=== PATIENT | female | born 1990 | race Caucasian/White ===

== ENCOUNTER 2022-12-17 09:36 | Emergency (ER) | payer OTHER ==
--- OUTSIDE RECORDS SUMMARY | 2022-12-17 09:48 | XMS REPORT | Continuity of Care Document ---
:[address] [facility] t Address [address] [place] [address] Care Team Providers Name Role Phone Maria Calderon Attending Clinician Unavailable Camila Ferreira Attending Clinician Unavailable [email or web address] Attending Clinician Unavailable Iveth De La Garza Attending Clinician Unavailable Doctor Unassigned, [place] Attending Clinician Unavailable Raisa Gotti Attending Clinician Feliciano Aguilar Attending Clinician Chanel Foy Attending Clinician Deonte Arana Attending Clinician Indio Perez Attending Clinician Maria Calderon Admitting Clinician Unavailable Camila Ferreira Admitting Clinician Unavailable [email or web address] Admitting Clinician Unavailable Chanel Foy Admitting Clinician Feliciano Aguilar Admitting Clinician Payers Payer Name Policy Type Policy Number Effective Date Expiration Date Cody GOODEN [id number] 2017 00:00:00 (POS II) Problems Condition Condition Condition Status Onset Resolution Last Treating Co mments Source Name Details Category Date Date Treatment Clinician Date Infertilit Infertilit Disease Active U nivers y y 7-05 [place] Medical anovulatio anovulatio Br anch n n 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 02-02 [place] of of cerv[place] (JENNIFER III) (JENNIFER III) 00 [facility] High 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 [place] infection [place] 00 [facility] Hemorrhoid Hemorrhoid Disease Active Overview : Univers s, s, 3- Added ity of unspecifie unspecifie 00:00: automatic [place] d d 00 ally from Medical hemorrhoid hemorrhoid request B ranch type type for surgery [id number] Heart Heart Disease Active Univers palpitatio palpitatio 04-17 it y of ns ns 00:00: [place] 00 Medical Branch Disease Active Uni vers resulting resulting 02-26 ity of from in from in 00:00: [place] vitro vitro 00 Medical fertilizat fertilizat Br anch ion, ion, antepartum antepartum Presence Presence Disease Active Unive rs of of 02-23 [place] of intracrani intracrani [place] shunt al shunt 00 Medica l Branch History of History of Disease Active U nivers brain brain 02-23 ity of shunt shunt 00:00: [place] 00 Medical Branch 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 02-23 ity of 00:00: [place] 00 Medical Branch G91.0 - G91.0 - Diagnosis Active 2015-11-28 Memoria COMMUNICAT COMMUNICAT 3-03 16:42:00 l ING ING 00:01: [place] 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 10/02/2015 MH OPID [place] 348.0 - 348.0 - Diagnosis Active 2015-04-28 Memoria CEREBRAL CEREBRAL 04-23 10:25:00 l CYSTS CYSTS 00:01: [place] 331.3 - 331.3 - 00 COMMUNICA COMMUNICA Active 04/23/2015 ASHANTI Sorenson BENIGN BENIGN Diagnosis Active 2014-11-05 M emoria TUMOR TUMOR 3- 21:47:00 l CHOROID CHOROID 00:00: [place] Active 00 10/01/2014 [facility] 789.39 - 789.39 - Diagnosis Active 2014-11-23 Memoria ABDMNAL ABDMNAL 2-20 16:35:00 l MASS OT MASS OT 00:01: [place] 625.8 - 625.8 - 00 FEM GEN FEM GEN Active 09/20/2014 ASHANTI Doug HYDROCEPHA HYDROCEPH Diagnosis Active 2013-082014-07-15 Memoria TRINO, ICD ALUS, ICD -14 08:45:00 l 9- 331.3 9- 331.3 00:00: Sundeep mitchell Active 00 06/14/2014 [facility] HYDROCEPHA HYDROCEPH Diagnosis Active 2013-082014-06-17 Memoria TRINO ALUS -14 12:18:00 l Active 00:00: [place] 06/14/2014 00 [facility] Communicat Communica Problem Active 2013-082016-04-30 Memoria ing ting 1-06 01:38:20 l hydrocepha hydrocepha 00:00: Jaiden pierce trino trino 00 (disorder) (disorder) Active 06/06/2014 Problem 04/30/2016 Data migrated from [facility] on 03/25/15. ASHANTI Sorenson, OPIAmy [place] HEADACHE HEADACHE Diagnosis Active 2013-082014-05-15 Memoria Active 13:10:00 l 05/15/2014 00:00: Sundeep mitchell [address], [facility] [place] PSEUDOTUMO PSEUDOTUM Diagnosis Active 2012-082013-06-05 Memoria R OR Active 08-01 08:08:00 l 06/01/2013 00:00: Sundeep mitchell [address] HYDROCEPHA Diagnosis Active 2012-082013-06-01 Memoria TRINO, HYDROCEPHA 0- 15:11:00 l VOMITING TRINO, 00:00: [place] VOMITING 00 Active 05/31/2013 [facility] VOMITING VOMITING Diagnosis Active 2012-082013-05-31 Memoria Active 19:00:00 l 05/31/2013 00:00: Sundeep mitchell [address] SEIZURES, SEIZURES, Diagnosis Active 2013-05-10 Memoria ARCHNOID ARCHNOID 03-29 21:36:00 l CYST CYST 00:00: [place] ICD-9# ICD-9# 00 345.41, 3 345.41, 3 Active 03/29/2013 [facility] SEIZURES, SEIZURES, Diagnosis Active 2013-04-12 Memoria ARCHNOID ARCHNOID 03-29 13:43:00 l CYST CYST 00:00: [place] Active 00 03/29/2013 [facility] EMU 23HR EMU 23HR Diagnosis Active 2013-04-03 Memoria EEG-STARIN EEG-STARIN 03-23 09:24:00 l G SPELLS G SPELLS 00:00: Sundeep mitchell Active 00 03/23/2013 [facility] Arachnoid Arachnoid Problem Active 2016-04-30 Memoria cyst cyst 03-01 01:38:20 l (disorder) (disorder) 00:00: He barbaraann Active 00 03/01/2013 Problem 04/30/2016 Data migrated from [employer] on 03/25/15. [facility], ASHANTI Sorenson, ASHANTI Saini,[facility] Final: Final: Problem 2014-11-02 Grant elise 11/02/2014 15:26:41 l [facility] Kidney Kidney Problem Resolve 2016-04-30 Me moria stone stone d 01:38:20 l (disorder) (disorder) He rmann Resolved Problem 04/30/2016 [facility], ASHANTI Sorenson, ASHANTI Saini,[facility] Acute pain Acute Problem Active 2016-04-30 M emoria (finding) pain 01:38:20 l (finding) [place] Active Problem 04/30/2016 [facility], ASHANTI Sorenson, ASHANTI Saini,[facility] Headache Headache Problem Active 2016-04-30 Memoria (finding) (finding) 01:38:20 l Active [place] Problem 04/30/2016 [facility], ASHANTI Sorenson, ASHANTI Saini Cyst of Cyst of Problem Active 2016-04-30 Me moria ovary ovary 01:38:20 l (disorder) (disorder) He rmann Active Problem 04/30/2016 [facility], OPID [place], OPID [place] COMMUNICAT COMMUNICA Diagnosis Active 2014-07-15 Memoria HYDROCEPHA T 08:45:00 l TRINO HYDROCEPHA Sundeep mitchell TRINO Active [facility] PSYMOTR PSYMOTR Diagnosis Active 2013-05-10 Memoria EPIL W EPIL W 21:36:00 l INTR EPIL INTR EPIL Herm dorothy Active [facility] CEREBRAL CEREBRAL Diagnosis Active 2013-05-10 Memoria CYSTS CYSTS 21:36:00 l Active [facility] CONVULSION CONVULSIO Diagnosis Active 2013-04-03 Memoria S NEC NS NEC 09:24:00 l [facility] BENIGN BENIGN Diagnosis Active 2014-11-05 M emoria NEOPLASM NEOPLASM 21:47:00 l CHOROID CHOROID [place] Active [facility] History of Past Illness Condition Condition Condition Status Onset Resolution Last Treating Co mments Source Name Details Category Date Date Treatment Clinician Date Discharge Discharge Problem 2013-082014-05-09 2014-05-09 Memoria Diagnosis: Diagnosis: 0-06 05:27:44 05:27:44 l Headache Headache 05:00: Sundeep n 05/06/2014 00 4 [facility] Allergies, Adverse Reactions, Alerts Allergy Allergy Status Severity Reaction(s) Onset Inactive Treating Comm ents Source Name Type Date Date Clinician No Known DA [facility] [place] No Known DA Active [facility] [place] Animal Propensi Active Hives Univers Dander ty to 9-13 ity of adverse 00:00: [place] reaction 00 Medical s Branch Social History Social Habit Start Date Stop Date Quantity Comments Source Alcohol intake [facility] Sex Assigned At [facility] Social History 2014-10-29 2014-10-29 Gerardo quevedo 12:22:21 12:22:21 Smoking Status Start Date Stop Date Source Social History [facility] [place] Medications Ordered Filled Start Stop Current Ordering Indication Dosage Frequency Signature Comments Components Source Medication Medication Date Date Medication? Clinician (SIG) Name Name HYDROmorphO Yes [id number] 2mg Take 1 Univers ne 4-02 tablet by ity of (DILAUDID) 00:00: mouth [place] 2 mg tablet 00 every 6 Medic al (six) Branch hours as needed for Pain (scale 7-10). ibuprofen Yes Special Memor ia 600 mg oral 402 Instructio l tablet 12:45: ns: take with food docusate Yes 100 mg = 1 Mem oria sodium 100 4-02 cap, PO, l mg oral 12:45: BID, PRN Sundeep n capsule 00 Constipati on, # 60 cap, 0 Refill(s) Acetaminoph Yes 1 - 2 tab, Memoria en 300 MG / 4-02 PO, Q6H, l Codeine 12:45: PRN Pain, Randi nn Phosphate 00 # 20 tab, 30 MG Oral 0 Tablet Refill(s) [Tylenol with Codeine #3] ibuprofen Yes Special Memor ia 600 mg oral 402 Instructio l tablet 12:45: ns: take with food docusate Yes 100 mg = 1 Mem oria sodium 100 4-02 cap, PO, l mg oral 12:45: BID, PRN Sundeep n capsule 00 Constipati on, # 60 cap, 0 Refill(s) Acetaminoph Yes 1 - 2 tab, Memoria en 300 MG / 4-02 PO, Q6H, l Codeine 12:45: PRN Pain, Randi nn Phosphate 00 # 20 tab, 30 MG Oral 0 Tablet Refill(s) [Tylenol with Codeine #3] Acetaminoph No Notes: Grant elise en 325 MG / 10-30 (Same as: l Hydrocodone 19:49: [place] Randi nn Bitartrate 00 325/5) Do 5 MG Oral not exceed Tablet 4gm/day of [[place] acetaminop 5/325] hen. Acetaminoph No Notes: Grant elise en 325 MG / 10-30 (Same as: l Hydrocodone 19:49: [place] Randi nn Bitartrate 00 325/5) Do 5 MG Oral not exceed Tablet 4gm/day of [[place] acetaminop 5/325] hen. benzocaine- No Notes: Grant elise menthol 10-30 Cepacol l topical 19:35: lozenges Sundeep n 00 Dispense 1 box = 16 lozenges (Same As: Cepacol Lozenges) benzocaine- No Notes: Grant elise menthol 10-30 Cepacol l topical 19:35: lozenges Sundeep n 00 Dispense 1 box = 16 lozenges (Same As: Cepacol Lozenges) Cepacol No 1 lozenge, Grant elise Lozenge 10-30 Route: l 19:33: MUCOUS [place] 00 MEM, Q2H, Drug form: SAMINA, PRN Sore Throat, Start date: 10/30/14 14:33:00, Duration: 30 day, Stop date: 11/29/14 14:32:00 Cepacol No 1 lozenge, Grant elise Lozenge 10-30 Route: l 19:33: MUCOUS [place] 00 MEM, Q2H, Drug form: SAMINA, PRN Sore Throat, Start date: 10/30/14 14:33:00, Duration: 30 day, Stop date: 11/29/14 14:32:00 Albuterol No Notes: SEE Me moria 0.417 MG/ML - RT l Inhalant 12:07: DOCUMENTAT Her raya Solution 00 ION (Same as: Proventil) Albuterol No Notes: SEE Me moria 0.417 MG/ML 4- RT l Inhalant 12:07: DOCUMENTAT Her raya Solution 00 ION (Same as: Proventil) Benadryl No Notes: Memoria 10-30 (Same as: l 12:03: Benadryl) [place] Benadryl No Notes: Memoria 10-30 (Same as: l 12:03: Benadryl) [place] Benadryl No Notes: Memoria 4 (Same as: l 12:01: Benadryl) [place] Benadryl No Notes: Memoria 4 (Same as: l 12:01: Benadryl) [place] sennosides, No Notes: Grant elise NURSING HOME 10-30 (Same as: l 02:00: Senokot) [place] sennosides, No Notes: Grant elise NURSING HOME 4-01 (Same as: l 02:00: Senokot) [place] Acetaminoph No 1-2 tab, Me moria en 325 MG / 3-31 PO, Q4-6H, l Hydrocodone 22:25: PRN Pain He rmann Bitartrate 00 5 MG Oral Tablet [[place] 5/325] Diphenhydra No 25 mg = 1 M emoria mine 3-31 tab, PO, l Hydrochlori 22:25: Bedtime Her raya de 25 MG 00 Oral Tablet [Benadryl] Acetaminoph No 1-2 tab, Me moria en 325 MG / 3-31 PO, Q4-6H, l Hydrocodone 22:25: PRN Pain He rmann Bitartrate 00 5 MG Oral Tablet [[place] 5/325] Diphenhydra No 25 mg = 1 M emoria mine 3-31 tab, PO, l Hydrochlori 22:25: Bedtime Her raya de 25 MG 00 Oral Tablet [Benadryl] Docusate No Notes: Memoria 3-31 (Same as: l 22:00: Colace) [place] (Do Not Crush) Docusate No Notes: Memoria 3-31 (Same as: l 22:00: Colace) [place] (Do Not Crush) vancomycin No 2001 mg: Me moria 3-31 infuse l 21:00: over 2.5 [place] 00 hours vancomycin No 2001 mg: Me moria 3-31 infuse l 21:00: over 2.5 [place] 00 hours Cefoxitin No Notes: Memori a 20 MG/ML 3-31 (Same As: l Injectable 19:00: Mefoxin) Her raya Solution 00 Cefoxitin No Notes: Memori a 20 MG/ML 3-31 (Same As: l Injectable 19:00: Mefoxin) Her raya Solution 00 Hydromorpho No Notes: Grant elise ne 3-31 (Same as: l 17:00: Dilaudid) [place] 00 conc = 0.5 mg/ml Hydromorph one ENDODONTIST Dose: ;Delay: ;Basal: celecoxib No Notes: Memori a 3-31 NSAID. l 17:00: Please [place] 00 check indication . Not for seizure. (Same As: CeleBREX ) Acetaminoph No Notes: Grant elise en 3-31 Infuse l 17:00: over 15 [place] 00 minutes Do not exceed 4gm/day of acetaminop hen pregabalin No Notes: Memor ia 3-31 (Same as: l 17:00: Lyrica) Tramadol No Notes: Not Mem oria 3-31 to exceed l 17:00: 400mg/day. [place] 00 (Same As: Ultram) Hydromorpho No Notes: Grant elise ne 3-31 (Same as: l 17:00: Dilaudid) conc = 0.5 mg/ml Hydromorph one ENDODONTIST Dose: ;Delay: ;Basal: celecoxib No Notes: Memori a 3-31 NSAID. l 17:00: Please [place] 00 check indication . Not for seizure. (Same As: CeleBREX ) Acetaminoph No Notes: Grant elise en 3-31 Infuse l 17:00: over 15 [place] 00 minutes Do not exceed 4gm/day of acetaminop hen pregabalin No Notes: Memor ia 3-31 (Same as: l 17:00: Lyrica) Tramadol No Notes: Not Mem oria 3-31 to exceed l 17:00: 400mg/day. (Same As: Ultram) Naloxone No Notes: Memoria 3-31 Same as l 16:49: Narcan Naloxone No Notes: Memoria 3-31 Same as l 16:49: Narcan Exparel No Notes: Memoria 3-31 (Same as: l 16:02: Exparel) NOT FOR IV use Postoperat simon analgesia: Infiltrati on (local): Dose is based on surgical site and volume required to cover the area (in general, the maximum total dose is 266 mg). Bunionecto my: 7 mL into the tissues surroundin g the osteotomy and 1 mL into the subcutaneo us tissue of the surgical site (total dose = 8 mL [106 mg]) Hemorrhoid ectomy: 30 mL (20 mL vial diluted with 10 mL NS) divided and administer ed as 6 injections of 5 mL each (total dose = 30 mL [266 mg]) Exparel No Notes: Memoria 3-31 (Same as: l 16:02: Exparel) [place] 00 NOT FOR IV use Postoperat simon analgesia: Infiltrati on (local): Dose is based on surgical site and volume required to cover the area (in general, the maximum total dose is 266 mg). Bunionecto my: 7 mL into the tissues surroundin g the osteotomy and 1 mL into the subcutaneo us tissue of the surgical site (total dose = 8 mL [106 mg]) Hemorrhoid ectomy: 30 mL (20 mL vial diluted with 10 mL NS) divided and administer ed as 6 injections of 5 mL each (total dose = 30 mL [266 mg]) Cefazolin No Notes: Memori a 3-31 (Same As: l 15:00: Ancef, [place] 00 Kefzol) Cefazolin No Notes: Memori a 3-31 (Same As: l 15:00: Ancef, [place] 00 Kefzol) Docusate No Notes: Memoria 3-31 (Same as: l 14:50: Colace) (Do Not Crush) Naloxone No Notes: Memoria 3-31 (Same as: l 14:50: Narcan) acetaminoph No Notes: Do M emoria en-codeine 3- not exceed l #3 14:50: 4gm/day of acetaminop hen. (Same as: Tylenol with Codeine # 3) Calcium No 1,000 mL, Memor ia Chloride 10-29 Rate: 125 l 0.002 14:50: ml/hr, [place] MEQ/ML / 00 Infuse Glucose 50 over: 8 MG/ML / hr, Route: Potassium IV, Dosing Chloride Weight 0.004 52.273 kg, MEQ/ML / Total Sodium Volume: Chloride 1,000, 0.147 Start MEQ/ML date: Injectable 10/29/14 Solution 9:50:00, Duration: 30 day, Stop date: 11/28/14 9:49:00 Diphenhydra No Notes: Grant elise mine 3-31 (Same as: l 14:50: Benadryl) Ondansetron No Notes: Grant elise 3-31 (Same as: l 14:50: Zofran) Docusate No Notes: Memoria 3-31 (Same as: l 14:50: Colace) (Do Not Crush) Naloxone No Notes: Memoria 3-31 (Same as: l 14:50: Narcan) acetaminoph No Notes: Do M emoria en-codeine 3- not exceed l #3 14:50: 4gm/day of acetaminop hen. (Same as: Tylenol with Codeine # 3) Calcium No 1,000 mL, Memor ia Chloride 3-31 Rate: 125 l 0.002 14:50: ml/hr, [place] MEQ/ML / 00 Infuse Glucose 50 over: 8 MG/ML / hr, Route: Potassium IV, Dosing Chloride Weight 0.004 52.273 kg, MEQ/ML / Total Sodium Volume: Chloride 1,000, 0.147 Start MEQ/ML date: Injectable 10/29/14 Solution 9:50:00, Duration: 30 day, Stop date: 11/28/14 9:49:00 Diphenhydra No Notes: Grant elise mine 3-31 (Same as: l 14:50: Benadryl) Ondansetron No Notes: Grant elise 3-31 (Same as: l 14:50: Zofran) Ondansetron No Notes: Grant elise 3-31 (Same as: l 14:17: Zofran) Flumazenil No Notes: Memor ia 3-31 (Same as: l 14:17: Romazicon) Promethazin No Notes: Do M emoria e 3- not give l 14:17: IV push. (Same as: Phenergan) Naloxone No Notes: Memoria 3-31 (Same as: l 14:17: Narcan) [place] 00 Fentanyl No Notes: Memoria 3-31 (Same as: l 14:17: Sublimaze) [place] 00 Preservati ve free. Hydromorpho No Notes: Grant elise ne 3-31 Same as: l 14:17: Dilaudid Labetalol No 10 mg, 2 Grant elise 3-31 mL, Route: l 14:17: IVP, Drug form: INJ, Q5Min, Dosing Weight 52.273, kg, PRN Elevated BP, Start date: 10/29/14 9:17:00, Duration: 5 doses or times, Stop date: 10/30/14 0:00:00 Hydralazine No Notes: Grant elise 3-31 (Same as: l 14:17: Apresoline ) Push over 5 minutes Ondansetron No Notes: Grant elise 3-31 (Same as: l 14:17: Zofran) Flumazenil No Notes: Memor ia 3-31 (Same as: l 14:17: Romazicon) Promethazin No Notes: Do M emoria e 3-31 not give l 14:17: IV push. [place] 00 (Same as: Phenergan) Naloxone No Notes: Memoria 3-31 (Same as: l 14:17: Narcan) Fentanyl No Notes: Memoria 3-31 (Same as: l 14:17: Sublimaze) Preservati ve free. Hydromorpho No Notes: Grant elise ne 3-31 Same as: l 14:17: Dilaudid Labetalol No 10 mg, 2 Grant elise 3-31 mL, Route: l 14:17: IVP, Drug form: INJ, Q5Min, Dosing Weight 52.273, kg, PRN Elevated BP, Start date: 10/29/14 9:17:00, Duration: 5 doses or times, Stop date: 10/30/14 0:00:00 Hydralazine No Notes: Grant elise -31 (Same as: l 14:17: Apresoline [place] 00 ) Push over 5 minutes Ancef No 2 gm, Memoria 10-29 Route: l 12:42: IVPB, [place] 00 ONCE, Dosing Weight 52.273, kg, Start date: 10/29/14 7:42:00, Duration: 1 doses or times, Stop date: 10/29/14 7:42:00 Ancef No 2 gm, Memoria 10-29 Route: l 12:42: IVPB, [place] 00 ONCE, Dosing Weight 52.273, kg, Start date: 10/29/14 7:42:00, Duration: 1 doses or times, Stop date: 10/29/14 7:42:00 ceFAZolin No Notes: Memori a 3-31 (Same As: l 11:00: Ancef, [place] 00 Kefzol) ceFAZolin No Notes: Memori a 3-31 (Same As: l 11:00: Ancef, [place] 00 Kefzol) Metoclopram 2013-08 Yes 10 mg = 1 M emoria miriam 10 MG 2-16 tab, PO, l Oral Tablet 12:06: [facility] assos. with AGUILERA, # 30 tab, 0 Refill(s) Metoclopram 2013-08 Yes 10 mg = 1 M emoria miriam 10 MG 2-16 tab, PO, l Oral Tablet 12:06: QID, N/V rmann [Reglan] 59 assos. with AGUILERA, # 30 tab, 0 Refill(s) Docusate 2013-08 Yes 100 mg = 1 Mem oria Sodium 100 2-16 cap, PO, l MG Oral 12:06: Q12H, # 90 Herm dorothy Capsule 00 cap, 0 Refill(s) Acetaminoph 2013-08 Yes 1-2 tab, Me moria en 325 MG / 2-16 PO, Q4-6H, l Hydrocodone 12:06: Pain, # 90 [place] Bitartrate 00 tab, 0 10 MG Oral Refill(s), Tablet given to [[place] patient 10] Docusate 2013-08 Yes 100 mg = 1 Mem oria Sodium 100 2-16 cap, PO, l MG Oral 12:06: Q12H, # 90 Herm dorothy Capsule 00 cap, 0 Refill(s) Acetaminoph 2013-08 Yes 1-2 tab, Me moria en 325 MG / 2-16 PO, Q4-6H, l Hydrocodone 12:06: Pain, # 90 [place] Bitartrate 00 tab, 0 10 MG Oral Refill(s), Tablet given to [[place] patient ] Cepacol 2013-08 No Notes: Memoria Sore Throat 2-16 Cepacol l 06:13: lozenges [place] 00 Dispense 1 box = 16 lozenges (Same As: Cepacol Lozenges) Cepacol 2013-08 No Notes: Memoria Sore Throat 2-16 Cepacol l 06:13: lozenges [place] 00 Dispense 1 box = 16 lozenges (Same As: Cepacol Lozenges) phenol 2013-08 No Notes: Memoria 2-16 Chlorasept l 06:10: ic [place] 00 (Same as: Chlorasept ic, Sore Throat [place]) phenol 2013-08 No Notes: Memoria 2-16 Chlorasept l 06:10: ic [place] 00 (Same as: Chlorasept ic, Sore Throat [place]) Cepacol 2013-08 No 1 lozenge, Grant elise Lozenge 2-16 Route: l 06:09: MUCOUS [place] 00 MEM, Q2H, Drug form: SAMINA, PRN Sore Throat, Start date: 07/16/14 0:09:00, Duration: 30 day, Stop date: 08/15/14 0:08:00 Cepacol 2013-08 No 1 lozenge, Grant elise Lozenge 2-16 Route: l 06:09: MUCOUS [place] 00 MEM, Q2H, Drug form: SAMINA, PRN Sore Throat, Start date: 07/16/14 0:09:00, Duration: 30 day, Stop date: 08/15/14 0:08:00 10 ML 2013-08 No Notes: Memoria Cefazolin 2-15 (Same As: l 100 MG/ML 22:30: Ancef, Sundeep n Prefilled 00 Kefzol) Syringe 10 ML 2013-08 No Notes: Memoria Cefazolin 2-15 (Same As: l 100 MG/ML 22:30: Ancef, Sundeep n Prefilled 00 Kefzol) Syringe Phenergan 2013-08 No 12.5 mg, Grant elise 2-15 Route: l 20:09: IVPB, [place] 00 ONCE, Dosing Weight 52.273, kg, PRN Nausea & Vomiting, Start date: 07/15/14 14:09:00, Stop date: 08/14/14 14:08:00 Phenergan 2013-08 No 12.5 mg, Grant elise 2-15 Route: l 20:09: IVPB, [place] 00 ONCE, Dosing Weight 52.273, kg, PRN Nausea & Vomiting, Start date: 07/15/14 14:09:00, Stop date: 08/14/14 14:08:00 Dexamethaso 2013-08 No Notes: Grant elise ne 2-15 Concentrat l 18:00: ion: [place] 00 4mg/ml Acetaminoph 2013-08 No Notes: Do M emoria en 325 MG / 2-15 not exceed l Hydrocodone 18:00: 4gm/day of [place] Bitartrate 00 acetaminop 10 MG Oral hen. (Same Tablet as: [place] 325/10) Dexamethaso 2013-08 No Notes: Grant elise ne 2-15 Concentrat l 18:00: ion: [place] 00 4mg/ml Acetaminoph 2013-08 No Notes: Do M emoria en 325 MG / 2-15 not exceed l Hydrocodone 18:00: 4gm/day of [place] Bitartrate 00 acetaminop 10 MG Oral hen. (Same Tablet as: [place] 325/10) Oxycodone 2013-08 No 10 mL, Memori a Hydrochlori 2-15 Route: PO, l de 1 MG/ML 17:43: ONCE, Sundeep n Oral 00 Dosing Solution Weight 52.273, kg, Start date: 07/15/14 11:43:00, Stop date: 07/15/14 11:43:00 Oxycodone 2013-08 No 10 mL, Memori a Hydrochlori 2-15 Route: PO, l de 1 MG/ML 17:43: ONCE, Sundeep n Oral 00 Dosing Solution Weight 52.273, kg, Start date: 07/15/14 11:43:00, Stop date: 07/15/14 11:43:00 sennosides, 2013-08 No Notes: Grant elise NURSING HOME 2-15 (Same as: l 15:00: Senokot) [place] 00 Levetiracet 2013-08 No Notes: Grant elise am 2-15 (Same l 15:00: as:Keppra) [place] Saline 2013-08 No Notes: Memoria Flush 0.9% 2-15 Same as: l 15:00: BD [place] Posiflush Sterile Vancomycin 2013-08 No 2001 mg: Me moria 6.67 MG/ML 2-15 infuse l Injectable 15:00: over 2.5 Her raya Solution 00 hours Docusate 2013-08 No Notes: Memoria 2-15 (Same as: l 15:00: Colace) [place] (Do Not Crush) Saline 2013-08 No Notes: Memoria Flush 0.9% 2-15 Same as: l 15:00: BD [place] Posiflush Sterile Vancomycin 2013-08 No 2001 mg: Me moria 6.67 MG/ML 2-15 infuse l Injectable 15:00: over 2.5 Her raya Solution 00 hours Docusate 2013-08 No Notes: Memoria 2-15 (Same as: l 15:00: Colace) [place] (Do Not Crush) sennosides, 2013-08 No Notes: Grant elise NURSING HOME 2-15 (Same as: l 15:00: Senokot) [place] Levetiracet 2013-08 No Notes: Grant elise am 2-15 (Same l 15:00: as:Keppra) [place] Cefazolin 2013-08 No 2 gm, Memoria 2-15 Route: l 14:35: IVPB, [place] 00 ONCE, Dosing Weight 52.273, kg, Start date: 07/15/14 8:35:00, Duration: 1 doses or times, Stop date: 07/15/14 8:35:00 Cefazolin 2013-08 No 2 gm, Memoria 2-15 Route: l 14:35: IVPB, [place] 00 ONCE, Dosing Weight 52.273, kg, Start date: 07/15/14 8:35:00, Duration: 1 doses or times, Stop date: 07/15/14 8:35:00 Benadryl 2013-08 No Notes: Memoria 2-15 (Same as: l 14:21: Benadryl) [place] 00 Metoclopram 2013-08 No Notes: Grant elise miriam 10 MG 2-15 (Same as: l Oral Tablet 14:21: Reglan) Her raya [Reglan] 00 Take 30 min before meals Benadryl 2013-08 No Notes: Memoria 2-15 (Same as: l 14:21: Benadryl) [place] 00 Metoclopram 2013-08 No Notes: Grant elise miriam 10 MG 2-15 (Same as: l Oral Tablet 14:21: Reglan) Her raya [Reglan] 00 Take 30 min before meals Dextrose 2013-08 No 12.5 gm, Memor ia 50% Syringe 2-15 25 mL, l 14:19: Route: IVP, Drug Form: INJ, Dosing Weight 52.273, kg, PRN, PRN Abnormal Lab Result, Start date: 07/15/14 8:19:00, Duration: 30 day, Stop date: 08/14/14 8:18:00 Regular 2013-08 No 60 units) Grant elise Insulin, 2-15 Stable for l Human 100 14:19: 28 days at [facility] UNT/ 00 room Injectable temperatur Solution e Expires in days from ____Date Saline 2013-08 No Notes: Memoria Flush 0.9% 2-15 Same as: l 14:19: BD Posiflush Sterile Labetalol 2013-08 No 10 mg, 2 Grant elise 2-15 mL, Route: l 14:19: IVP, Drug form: INJ, Q15Min, Dosing Weight 52.273, kg, PRN See Nurse's Notes, Start date: 07/15/14 8:19:00, Duration: 30 day, Stop date: 08/14/14 8:18:00, HTN Hydralazine 2013-08 No Notes: Grant elise 2-15 (Same as: l 14:19: Apresoline ) Push over 5 minutes Ondansetron 2013-08 No Notes: Grant elise 2-15 (Same as: l 14:19: Zofran) Delta 00 Bisacodyl 2013-08 No Notes: Memori a 2-15 (Same As: l 14:19: Dulcolax, [place] 00 Bisco-Lax) Acetaminoph 2013-08 No Notes: Do M emoria en 325 MG / 2-15 not exceed l Hydrocodone 14:19: 4gm/day of [place] Bitartrate 00 acetaminop 10 MG Oral hen. (Same Tablet as: [place] 325/10) Acetaminoph 2013-08 No Notes: Grant elise en 325 MG / 2-15 (Same as: l Hydrocodone 14:19: [place] Randi nn Bitartrate 00 325/5) Do 5 MG Oral not exceed Tablet 4gm/day of acetaminop hen. Morphine 2013-08 No Notes: Memoria 2-15 (Same l 14:19: as:MORPhin [place] 00 e Sulfate) Sodium 2013-08 No 1,000 mL, Memori a Chloride 2-15 Rate: 100 l 0.154 14:19: ml/hr, Delta MEQ/ML 00 Infuse Injectable over: 10 Solution hr, Route: IV, Dosing Weight 52.273 kg, Total Volume: 1,000, Start date: 07/15/14 8:19:00, Duration: 30 day, Stop date: 08/14/14 8:18:00 Dextrose 2013-08 No 12.5 gm, Memor ia 50% Syringe 2-15 25 mL, l 14:19: Route: [place] 00 IVP, Drug Form: INJ, Dosing Weight 52.273, kg, PRN, PRN Abnormal Lab Result, Start date: 07/15/14 8:19:00, Duration: 30 day, Stop date: 08/14/14 8:18:00 Regular 2013-08 No 60 units) Grant elise Insulin, 2-15 Stable for l Human 100 14:19: 28 days at [facility] UNT/ML 00 room Injectable temperatur Solution e Expires in days from ____Date Saline 2013-08 No Notes: Memoria Flush 0.9% 2-15 Same as: l 14:19: BD [place] 00 Posiflush Sterile Labetalol 2013-08 No 10 mg, 2 Grant elise 2-15 mL, Route: l 14:19: IVP, Drug form: INJ, Q15Min, Dosing Weight 52.273, kg, PRN See Nurse's Notes, Start date: 07/15/14 8:19:00, Duration: 30 day, Stop date: 08/14/14 8:18:00, HTN Hydralazine 2013-08 No Notes: Grant elise 2-15 (Same as: l 14:19: Apresoline ) Push over 5 minutes Ondansetron 2013-08 No Notes: Grant elise 2-15 (Same as: l 14:19: Zofran) Bisacodyl 2013-08 No Notes: Memori a 2-15 (Same As: l 14:19: Dulcolax, [place] 00 Bisco-Lax) Acetaminoph 2013-08 No Notes: Do M emoria en 325 MG / 2-15 not exceed l Hydrocodone 14:19: 4gm/day of [place] Bitartrate 00 acetaminop 10 MG Oral hen. (Same Tablet as: [place] 325/10) Acetaminoph 2013-08 No Notes: Grant elise en 325 MG / 2-15 (Same as: l Hydrocodone 14:19: [place] Randi nn Bitartrate 00 325/5) Do 5 MG Oral not exceed Tablet 4gm/day of acetaminop hen. Morphine 2013-08 No Notes: Memoria 2-15 (Same l 14:19: as:MORPhin [place] 00 e Sulfate) Sodium 2013-08 No 1,000 mL, Memori a Chloride 2-15 Rate: 100 l 0.154 14:19: ml/hr, Delta MEQ/ML 00 Infuse Injectable over: 10 Solution hr, Route: IV, Dosing Weight 52.273 kg, Total Volume: 1,000, Start date: 07/15/14 8:19:00, Duration: 30 day, Stop date: 08/14/14 8:18:00 Ondansetron 2013-08 No Notes: Grant elise 2-15 (Same as: l 13:34: Zofran) Promethazin 2013-08 No 6.25 mg, Me moria e 2-15 Route: l 13:34: IVPB, [place] 00 ONCE, Dosing Weight 52.273, kg, PRN Nausea & Vomiting, Start date: 07/15/14 7:34:00 Hydromorpho 2013-08 No 0.5 mg, Mem oria ne 2-15 Route: l 13:34: IVP, Delta 00 Q5Min, Dosing Weight 52.273, kg, PRN Pain Score 7-10, Start date: 07/15/14 7:34:00, Duration: 4 doses or times, Stop date: Limited # of times Naloxone 2013-08 No Notes: Memoria 2-15 (Same as: l 13:34: Narcan) Flumazenil 2013-08 No Notes: Memor ia 2-15 (Same as: l 13:34: Romazicon) Ondansetron 2013-08 No Notes: Grant elise 2-15 (Same as: l 13:34: Zofran) Promethazin 2013-08 No 6.25 mg, Me moria e 2-15 Route: l 13:34: IVPB, [place] 00 ONCE, Dosing Weight 52.273, kg, PRN Nausea & Vomiting, Start date: 07/15/14 7:34:00 Hydromorpho 2013-08 No 0.5 mg, Mem oria ne 2-15 Route: l 13:34: IVP, [place] 00 Q5Min, Dosing Weight 52.273, kg, PRN Pain Score 7-10, Start date: 07/15/14 7:34:00, Duration: 4 doses or times, Stop date: Limited # of times Naloxone 2013-08 No Notes: Memoria 2-15 (Same as: l 13:34: Narcan) Flumazenil 2013-08 No Notes: Memor ia 2-15 (Same as: l 13:34: Romazicon) ibuprofen 2013-08 No 400 mg = 2 Me moria 200 mg oral 2-11 cap, PO, l capsule 20:17: Q4H, Pain, Herm dorothy 00 # 120 cap, 0 Refill(s) ibuprofen 2013-08 No 400 mg = 2 Me moria 200 mg oral 2-11 cap, PO, l capsule 20:17: Q4H, Pain, Herm dorothy 00 # 120 cap, 0 Refill(s) Diphenhydra 2013-08 Yes 50 mg = 2 M emoria mine 0-06 cap, PO, l Hydrochlori 21:00: Q6H, to be [place] de 25 MG 00 taken with Oral reglan for Capsule headache, [Benadryl] # 30 cap, 0 Refill(s) Metoclopram 2013-08 Yes 10 mg = 1 M emoria miriam 10 MG 0-06 tab, PO, l Oral Tablet 21:00: QID, N/V [facility] [Reglan] 00 assos. with AGUILERA, # 360 tab, 0 Refill(s) tramadol 2013-08 Yes 1 - 2 Memoria hydrochlori 0-06 tabs, PO, l de 50 MG 21:00: Q4-6H, as Herm dorothy Oral Tablet 00 needed for [Ultram] pain, # 30 ea, 0 Refill(s) Diphenhydra 2013-08 Yes 50 mg = 2 M emoria mine 0-06 cap, PO, l Hydrochlori 21:00: Q6H, to be [place] de 25 MG 00 taken with Oral reglan for Capsule headache, [Benadryl] # 30 cap, 0 Refill(s) Metoclopram 2013-08 Yes 10 mg = 1 M emoria miriam 10 MG 0-06 tab, PO, l Oral Tablet 21:00: QID, N/V [facility] [Reglan] 00 assos. with AGUILERA, # 360 tab, 0 Refill(s) tramadol 2013-08 Yes 1 - 2 Memoria hydrochlori 0-06 tabs, PO, l de 50 MG 21:00: Q4-6H, as Herm dorothy Oral Tablet 00 needed for [Ultram] pain, # 30 ea, 0 Refill(s) Hydromorpho 2013-08 No Notes: Grant elise ne 0-06 (Same as: l 18:40: Dilaudid) [place] 00 Benadryl 2013-08 No Notes: Memoria 0-06 (Same as: l 18:40: Benadryl) [place] 00 Reglan 2013-08 No Notes: Memoria 0-06 (Same as: l 18:40: Reglan) [place] 00 NS 1,000 mL 2013-08 No Special Mem oria 0-06 Instructio l 18:40: ns: Bolus [place] 00 Dose Hydromorpho 2013-08 No Notes: Grant elise ne 0-06 (Same as: l 18:40: Dilaudid) Delta 00 Benadryl 2013-08 No Notes: Memoria 0-06 (Same as: l 18:40: Benadryl) Delta 00 Reglan 2013-08 No Notes: Memoria 0-06 (Same as: l 18:40: Reglan) [place] 00 NS 1,000 mL 2013-08 No Special Mem oria 0-06 Instructio l 18:40: ns: Bolus [place] 00 Dose vancomycin 2012-08 No Zoran 1 gm, Grant elise 08-02 [place] Route: l 04:00: [place] IVPB, Drug form: INJ, [id number], Dosing Weight 51.364, kg, For 65 - 90kg, Start date: 06/01/13 23:00:00, Duration: 30 day, Stop date: 06/30/13 23:00:00(S john As: Vancocin) vancomycin 2012-08 No Zoran 1 gm, Grant elise 08-02 [place] Route: l 04:00: Rosales IVPB, Drug form: INJ, [id number], Dosing Weight 51.364, kg, For 65 - 90kg, Start date: 06/01/13 23:00:00, Duration: 30 day, Stop date: 06/30/13 23:00:00(S john As: Vancocin) Pepcid 20 2012-08 Yes Zoran 20 mg, 1 Me moria mg oral 08-01 [place] tab, PO, l tablet 15:08: Rosales BID, 60 Delta 57 tab, Substituti on Allowed Pepcid 20 2012-08 Yes Zoran 20 mg, 1 Me moria mg oral 08-01 [place] tab, PO, l tablet 15:08: Rosales BID, 60 Delta 57 tab, Substituti on Allowed dexamethaso 2012-08 Yes Zoran See Grant elise ne 1 mg 08-01 [place] Instructio l oral tablet 15:07: Rosales ns, with He [facility] 46 food, 36 tab, Substituti on Allowedwit h food dexamethaso 2012-08 Yes Zoran See Grant elise ne 1 mg 08-01 [place] Instructio l oral tablet 15:07: Rosales ns, with He rmann 46 food, 36 tab, Substituti on Allowedwit h food docusate 2012-08 Yes Zoran 100 mg, 1 Me moria sodium 100 08-01 [place] cap, PO, l mg oral 15:07: Rosales BID, 20 Delta capsule 32 cap, Substituti on Allowed docusate 2012-08 Yes Zoran 100 mg, 1 Me moria sodium 100 08-01 [place] cap, PO, l mg oral 15:07: Rosales BID, 20 [place] capsule 32 cap, Substituti on Allowed [place] 2012-08 Yes Zoran 2 tab, PO, Grant elise 10/325 oral 08-01 [place] Q4H, PRN, l tablet 15:07: Rosales 120 tab, [place] 17 as needed for pain, Substituti on Allowed, Maintenanc e, TAB [place] 2012-08 Yes Zoarn 2 tab, PO, Grant elise 10/325 oral 08-01 [place] Q4H, PRN, l tablet 15:07: Rosales 120 tab, Delta 17 as needed for pain, Substituti on Allowed, Maintenanc e, TAB Pepcid 20 2012-08 No Zoran 20 mg, 1 Me moria mg oral 08-01 [place] tab, l tablet 14:00: [place] Route: PO, Randi nn 00 Drug form: TAB, Q12H, Dosing Weight 51.364, kg, Start date: 06/01/13 9:00:00, Duration: 30 day, Stop date: 06/30/13 21:00:00(S john as: Pepcid) Pepcid 20 2012-08 No Zoran 20 mg, 1 Me moria mg oral 08-01 [place] tab, l tablet 14:00: Ros[place] Route: PO, Randi nn 00 Drug form: TAB, Q12H, Dosing Weight 51.364, kg, Start date: 06/01/13 9:00:00, Duration: 30 day, Stop date: 06/30/13 21:00:00(S john as: Pepcid) dexamethaso 2012-08 No Zoran 4 mg, 1 M [facility] 08-01 [place] mL, Route: l 05:00: Rosales IVP, Drug Delta 00 form: INJ, Q6H, Dosing Weight 51.364, kg, Start date: 06/01/13 0:00:00, Duration: 30 day, Stop date: 06/30/13 18:00:00Co ncentratio n: 4mg/ml dexamethaso 2012-08 No Zoran 4 mg, 1 M [facility] 08-01 [place] mL, Route: l 05:00: Rosales IVP, Drug Delta 00 form: INJ, Q6H, Dosing Weight 51.364, kg, Start date: 06/01/13 0:00:00, Duration: 30 day, Stop date: 06/30/13 18:00:00Co ncentratio n: 4mg/ml vancomycin 2012-08 No Camila 2 gm, Mem oria + Sodium 08-01 Madhuri [place] Route: l Chloride 04:00: IVPB, Delta 0.9% IV 500 00 ONCE, mL Dosing Weight 51.364, kg, For 70 - 90kg., Start date: 05/31/13 23:00:00, Stop date: 05/31/13 23:00:00(S john As: Vancocin) Vancomycin FOR IV SET ONLY vancomycin 2012-08 No Camila 2 gm, Mem oria + Sodium 08-01 Madhuri [place] Route: l Chloride 04:00: IVPB, Delta 0.9% IV 500 00 ONCE, mL Dosing Weight 51.364, kg, For 70 - 90kg., Start date: 05/31/13 23:00:00, Stop date: 05/31/13 23:00:00(S john As: Vancocin) Vancomycin FOR IV SET ONLY Dilaudid 2012-08 No Jillian 0.2 mg, Grant elise 08-01 Elliott 0.1 mL, l 03:05: Route: IV, Delta 00 Drug form: INJ, Q3H, Dosing Weight 51.364, kg, PRN Pain, Start date: 05/31/13 22:05:00, Duration: 30 day, Stop date: 06/30/13 22:04:00(S john as: Dilaudid) Dilaudid 2012-08 No Jillian 0.2 mg, Grant elise 08-01 Elliott 0.1 mL, l 03:05: Route: IV, Delta 00 Drug form: INJ, Q3H, Dosing Weight 51.364, kg, PRN Pain, Start date: 05/31/13 22:05:00, Duration: 30 day, Stop date: 06/30/13 22:04:00(S john as: Dilaudid) [place] 2012-08 No Jillian 1 tab, Memoria 10/325 oral 08-01 Elliott Route: PO, l tablet 03:04: Drug Form: Randi nn 00 TAB, Dosing Weight 51.364, kg, Q4H, PRN Pain, Start date: 05/31/13 22:04:00, Duration: 30 day, Stop date: 06/30/13 22:03:00Do not exceed 4gm/day of acetaminop hen. (Same as: [place] 325/10) [place] 2012-08 No Jillian 1 tab, Memoria 325 oral 08-01 Elliott Route: PO, l tablet 03:04: Drug Form: Randi nn 00 TAB, Dosing Weight 51.364, kg, Q4H, PRN Pain, Start date: 05/31/13 22:04:00, Duration: 30 day, Stop date: 06/30/13 22:03:00Do not exceed 4gm/day of acetaminop hen. (Same as: [place] 325/10) cefepime 2012-08 No Zoran 1 gm, Memori a 08-01 [place] Route: l 03:00: Rosales IVPB, Drug Delta 00 form: INJ, Q8H, Dosing Weight 51.364, kg, (CrCl >/= 50 ml/min), Start date: 05/31/13 22:00:00, Duration: 30 day, Stop date: 06/30/13 14:00:00(S john As: Maxipime) cefepime 2012-08 No Zoran 1 gm, Memori a 08-01 [place] Route: l 03:00: Rosales IVPB, Drug [place] 00 form: INJ, Q8H, Dosing Weight 51.364, kg, (CrCl >/= 50 ml/min), Start date: 05/31/13 22:00:00, Duration: 30 day, Stop date: 06/30/13 14:00:00(S jonh As: Maxipime) docusate 2012-08 No Camila 100 mg, 1 M emoria 08-01 Madhuri [place] cap, l 02:00: Route: PO, Delta 00 Drug form: CAP, Q12H, Dosing Weight 51.364, kg, Start date: 05/31/13 21:00:00, Duration: 30 day, Stop date: 06/30/13 9:00:00(Sa me as: Colace) (Do Not Crush) senna 8.6 2012-08 No Camila 8.6 mg, 1 Memoria mg oral 08-01 Madhuri [place] tab, l tablet 02:00: Route: PO, Randi nn Drug Form: TAB, Dosing Weight 51.364, kg, Bedtime, Start date: 05/31/13 21:00:00, Duration: 30 day, Stop date: 06/29/13 21:00:00(S john as: Senokot) Saline 2012-08 No Camila 5 ml, Memoria Flush 0.9% 08-01 Madhuri [place] Route: l 02:00: IVP, Drug Form: INJ, Dosing Weight 51.364, kg, Q12H, Start date: 05/31/13 21:00:00, Duration: 30 day, Stop date: 06/30/13 9:00:00(Sa me as: BD Posiflush) docusate 2012-08 No Camila 100 mg, 1 M emoria 08-01 Madhuri [place] cap, l 02:00: Route: PO, [place] 00 Drug form: CAP, Q12H, Dosing Weight 51.364, kg, Start date: 05/31/13 21:00:00, Duration: 30 day, Stop date: 06/30/13 9:00:00(Sa me as: Colace) (Do Not Crush) senna 8.6 2012-08 No Camila 8.6 mg, 1 Memoria mg oral 08-01 Madhuri [place] tab, l tablet 02:00: Route: PO, Randi nn Drug Form: TAB, Dosing Weight 51.364, kg, Bedtime, Start date: 05/31/13 21:00:00, Duration: 30 day, Stop date: 06/29/13 21:00:00(S john as: Senokot) Saline 2012-08 No Camila 5 ml, Memoria Flush 0.9% 08-01 Madhuri [place] Route: l 02:00: IVP, Drug Delta 00 Form: INJ, Dosing Weight 51.364, kg, Q12H, Start date: 05/31/13 21:00:00, Duration: 30 day, Stop date: 06/30/13 9:00:00(Sa me as: BD Posiflush) vancomycin 2012-08 No Camila 1 gm, Mem oria 08-01 Madhuri [place] Route: l 00:00: IVPB, Drug Delta 00 form: INJ, [id number], Dosing Weight 51.364, kg, For 65 - 90kg, Start date: 05/31/13 19:00:00, Duration: 30 day, Stop date: 06/29/13 19:00:00(S john As: Vancocin) vancomycin 2012-08 No Camila 1 gm, Mem oria 08-01 Madhuri [place] Route: l 00:00: IVPB, Drug Delta 00 form: INJ, [id number], Dosing Weight 51.364, kg, For 65 - 90kg, Start date: 05/31/13 19:00:00, Duration: 30 day, Stop date: 06/29/13 19:00:00(S john As: Vancocin) [place] 5/325 2012-08 No Jillian 1 tab, Me moria oral tablet 0-31 Elliott Route: PO, l 23:51: Drug Form: Delta 00 TAB, Dosing Weight 51.364, kg, Q4H, PRN Pain, Start date: 05/31/13 18:51:00, Duration: 30 day, Stop date: 06/30/13 18:50:00(S john as: [place] 325/5) Do not exceed 4gm/day of acetaminop hen. Zofran 2012-08 No Camila 4 mg, 2 Memor ia 0-31 Madhuri [place] mL, Route: l 23:51: IVP, Drug Delta 00 form: INJ, Q8H, Dosing Weight 51.364, kg, PRN Nausea, Start date: 05/31/13 18:51:00, Duration: 30 day, Stop date: 06/30/13 18:50:00(S john as: Zofran) hydrALAZINE 2012-08 No Camila 10 mg, 0.5 Memoria 0-31 Madhuri [place] mL, Route: l 23:51: IVP, Drug form: INJ, Q2H, Dosing Weight 51.364, kg, PRN Hypertensi on, Start date: 05/31/13 18:51:00, Duration: 30 day, Stop date: 06/30/13 18:50:00(S john as: Apresoline ) morphine 2012-08 No Camila 2 mg, 1 Mem oria Sulfate 0-31 Madhuri [place] mL, Route: l 23:51: IVP, Drug form: INJ, Q2H, Dosing Weight 51.364, kg, PRN Pain, Start date: 05/31/13 18:51:00, Duration: 30 day, Stop date: 06/30/13 18:50:00(S john as:MORPhin e Sulfate) acetaminoph 2012-08 No Camila 650 mg, 2 Memoria en 0-31 Madhuri [place] tab, l 23:51: Route: PO, Drug form: TAB, Q6H, Dosing Weight 51.364, kg, PRN Fever, Start date: 05/31/13 18:51:00, Duration: 30 day, Stop date: 06/30/13 18:50:00Do not exceed 4 gm/day. (Same as: Tylenol) [place] 5/325 2012-08 No Jillian 1 tab, Me moria oral tablet 0-31 Elliott Route: PO, l 23:51: Drug Form: Delta 00 TAB, Dosing Weight 51.364, kg, Q4H, PRN Pain, Start date: 05/31/13 18:51:00, Duration: 30 day, Stop date: 06/30/13 18:50:00(S john as: [place] 325/5) Do not exceed 4gm/day of acetaminop hen. Zofran 2012-08 No Camila 4 mg, 2 Memor ia 0-31 Madhuri [place] mL, Route: l 23:51: IVP, Drug [place] 00 form: INJ, Q8H, Dosing Weight 51.364, kg, PRN Nausea, Start date: 05/31/13 18:51:00, Duration: 30 day, Stop date: 06/30/13 18:50:00(S john as: Zofran) hydrALAZINE 2012-08 No Camila 10 mg, 0.5 Memoria 0-31 Madhuri [place] mL, Route: l 23:51: IVP, Drug Delta 00 form: INJ, Q2H, Dosing Weight 51.364, kg, PRN Hypertensi on, Start date: 05/31/13 18:51:00, Duration: 30 day, Stop date: 06/30/13 18:50:00(S john as: Apresoline ) morphine 2012-08 No Camila 2 mg, 1 Mem oria Sulfate 0-31 Madhuri [place] mL, Route: l 23:51: IVP, Drug Delta 00 form: INJ, Q2H, Dosing Weight 51.364, kg, PRN Pain, Start date: 05/31/13 18:51:00, Duration: 30 day, Stop date: 06/30/13 18:50:00(S john as:MORPhin e Sulfate) acetaminoph 2012-08 No Camila 650 mg, 2 Memoria en 0-31 Madhuri [place] tab, l 23:51: Route: PO, Delta 00 Drug form: TAB, Q6H, Dosing Weight 51.364, kg, PRN Fever, Start date: 05/31/13 18:51:00, Duration: 30 day, Stop date: 06/30/13 18:50:00Do not exceed 4 gm/day. (Same as: Tylenol) Saline 2012-08 No Camila 5 ml, Memoria Flush 0.9% 0-31 Madhuri [place] Route: l 23:50: IVP, Drug [place] 00 Form: INJ, Dosing Weight 51.364, kg, PRN, PRN Line Flush, Start date: 05/31/13 18:50:00, Duration: 30 day, Stop date: 06/30/13 17:49:00(S john as: BD Posiflush) Sodium 2012-08 No Camila 1,000 mL, Mem oria Chloride 0-31 Madhuri [place] Rate: 50 l 0.9% IV 23:50: ml/hr, Delta 1,000 mL 00 Infuse over: 20 hr, Route: IV, Dosing Weight 51.364 kg, Total Volume: 1,000, Start date: 05/31/13 18:50:00, Duration: 30 day, Stop date: 06/30/13 18:49:00 vancomycin 2012-08 No Camila 2 gm, Mem oria + Sodium 0-31 Madhuri Celso Route: l Chloride 23:50: IVPB, Delta 0.9% IV 500 00 ONCE, mL Dosing Weight 51.364, kg, For 70 - 90kg., Start date: 05/31/13 18:50:00, Stop date: 05/31/13 18:50:00(S john As: Vancocin) Vancomycin FOR IV SET ONLY Saline 2012-08 No Camila 5 ml, Memoria Flush 0.9% 0-31 Madhuri Celso Route: l 23:50: IVP, Drug Delta 00 Form: INJ, Dosing Weight 51.364, kg, PRN, PRN Line Flush, Start date: 05/31/13 18:50:00, Duration: 30 day, Stop date: 06/30/13 17:49:00(S john as: BD Posiflush) Sodium 2012-08 No Camila 1,000 mL, Mem oria Chloride 0-31 Madhuri Celso Rate: 50 l 0.9% IV 23:50: ml/hr, [place] 1,000 mL 00 Infuse over: 20 hr, Route: IV, Dosing Weight 51.364 kg, Total Volume: 1,000, Start date: 05/31/13 18:50:00, Duration: 30 day, Stop date: 06/30/13 18:49:00 vancomycin 2012-08 No Camila 2 gm, Mem oria + Sodium 0-31 Madhuri Celso Route: l Chloride 23:50: IVPB, [place] 0.9% IV 500 00 ONCE, mL Dosing Weight 51.364, kg, For 70 - 90kg., Start date: 05/31/13 18:50:00, Stop date: 05/31/13 18:50:00(S john As: Vancocin) Vancomycin FOR IV SET ONLY fentanyl 2012-08 No Zoran 50 Memoria 0-31 [place] microgram, l 23:01: Rosales Route: [place] 00 IVP, ONCE, Dosing Weight 51.364, kg, Priority: STAT, Start date: 05/31/13 18:01:00, Stop date: 05/31/13 18:01:00 fentanyl 2012-08 No Zoran 50 Memoria 0-31 [place] microgram, l 23:01: Rosales Route: Delta 00 IVP, ONCE, Dosing Weight 51.364, kg, Priority: STAT, Start date: 05/31/13 18:01:00, Stop date: 05/31/13 18:01:00 Dilaudid 2012-08 No Rey 1 mg, 0.5 Grant elise 0-31 Chay mL, Route: l 22:27: Radecki IV, Drug Sundeep n 00 form: INJ, ONCE, Dosing Weight 51.364, kg, Start date: 05/31/13 17:27:00, Stop date: 05/31/13 17:27:00(S john as: Dilaudid) Dilaudid 2012-08 No Rey 1 mg, 0.5 Grant elise 0-31 Chay mL, Route: l 22:27: Radecki IV, Drug Sundeep n 00 form: INJ, ONCE, Dosing Weight 51.364, kg, Start date: 05/31/13 17:27:00, Stop date: 05/31/13 17:27:00(S john as: Dilaudid) Phenergan 2012-08 No Remi 12.5 mg, M emoria 0-31 Pb 0.5 mL, l 21:30: Christina Route: [place] 00 IVPB, Drug form: INJ, ONCE, Dosing Weight 51.364, kg, Priority: STAT, Start date: 05/31/13 16:30:00, Stop date: 05/31/13 16:30:00(S john as: Phenergan) Phenergan 2012-08 No Remi 12.5 mg, M emoria 0-31 Pb 0.5 mL, l 21:30: Christina Route: [place] 00 IVPB, Drug form: INJ, ONCE, Dosing Weight 51.364, kg, Priority: STAT, Start date: 05/31/13 16:30:00, Stop date: 05/31/13 16:30:00(S john as: Phenergan) ketorolac 2012-08 Yes Jd 10 mg, 1 Mem oria 10 mg oral 0-13 Sebastian tab, PO, l tablet 12:11: Abdunnur Q6H, PRN, He rmann 00 8 tab, Pain, Substituti on Allowed, TAB ketorolac 2012-08 Yes Jd 10 mg, 1 Mem oria 10 mg oral 0-13 Sebastian tab, PO, l tablet 12:11: Abdunnur Q6H, PRN, He rmann 00 8 tab, Pain, Substituti on Allowed, TAB Keppra 500 2012-08 Yes Jd 500 mg, 1 M emoria mg oral 0-13 Sebastian tab, PO, l tablet 12:10: Abdunnur BID, 60 Herm dorothy 50 tab, 3, 3, Substituti on Allowed Keppra 500 2012-08 Yes Jd 500 mg, 1 M emoria mg oral 0-13 Sebastian tab, PO, l tablet 12:10: Abdunnur BID, 60 Herm dorothy 50 tab, 3, 3, Substituti on Allowed dexamethaso 2012-08 Yes Jd 1 mg, 1 Me moria ne 1 mg 0-13 Sebastian tab, PO, l oral tablet 12:10: Abdunnur BID, He rmann 33 Please take 2 tabs PO Q6H x 2 days, then 2 tabs PO Q8H x 2 days, then 1 tab PO Q8H x 2 days, then 1 tab PO Q12h x 1 day, then 1 tab PO daily x 1 day, then stop, 37 tab, Substituti on Allowed, TABPlease take 2 tabs PO Q6H x 2 days, then 2 tabs PO Q8H x 2 days, then 1 tab PO Q8H x 2 days, then 1 tab PO Q12h x 1 day, then 1 tab PO daily x 1 day, then stop dexamethaso 2012-08 Yes Jd 1 mg, 1 Me moria ne 1 mg 0-13 Sebastian tab, PO, l oral tablet 12:10: Abdunnur BID, He rmann 33 Please take 2 tabs PO Q6H x 2 days, then 2 tabs PO Q8H x 2 days, then 1 tab PO Q8H x 2 days, then 1 tab PO Q12h x 1 day, then 1 tab PO daily x 1 day, then stop, 37 tab, Substituti on Allowed, TABPlease take 2 tabs PO Q6H x 2 days, then 2 tabs PO Q8H x 2 days, then 1 tab PO Q8H x 2 days, then 1 tab PO Q12h x 1 day, then 1 tab PO daily x 1 day, then stop magnesium 2012-08 Yes Jd 17.45 gm, Me moria citrate 0-13 Sebastian 300 mL, l 8.85% oral 12:10: Abdunnur PO, ONCE, [place] liquid 22 PRN, 1 mL, 1, 1, constipati on, Substituti on Allowed, Soft Stop, LIQ magnesium 2012-08 Yes Jd 17.45 gm, Me moria citrate 0-13 Sebastian 300 mL, l 8.85% oral 12:10: Abdunnur PO, ONCE, Delta liquid 22 PRN, 1 mL, 1, 1, constipati on, Substituti on Allowed, Soft Stop, LIQ docusate 2012-08 Yes Jd 100 mg, 1 Mem oria sodium 100 0-13 Sebastian cap, PO, l mg oral 12:10: Abdunnur BID, 20 Her raya capsule 20 cap, Substituti on Allowed docusate 2012-08 Yes Jd 100 mg, 1 Mem oria sodium 100 0-13 Sebastian cap, PO, l mg oral 12:10: Abdunnur BID, 20 Her raya capsule 20 cap, Substituti on Allowed [place] 2012-08 Yes Jd 2 tab, PO, Memor ia 10/325 oral 0-13 Sebastian Q4H, PRN, l tablet 12:10: Abdunnur 120 tab, Her raya 18 as needed for pain, Substituti on Allowed, Maintenanc e, TAB [place] 2012-08 Yes Jd 2 tab, PO, Memor ia 10/325 oral 0-13 Sebastian Q4H, PRN, l tablet 12:10: Abdunnur 120 tab, Her raya 18 as needed for pain, Substituti on Allowed, Maintenanc e, TAB dexamethaso 2012-08 No Jd 4 mg, 1 Me moria ne 0-12 Sebastian mL, Route: l 21:00: Abdunnur IVP, Drug Herm dorothy 00 form: INJ, Q8H, Dosing Weight 51.364, kg, Start date: 05/12/13 16:00:00, Duration: 30 day, Stop date: 06/11/13 8:00:00Con centration : 4mg/ml dexamethaso 2012-08 No Jd 4 mg, 1 Me moria ne 0-12 Sebastian mL, Route: l 21:00: Abdunnur IVP, Drug Herm dorothy 00 form: INJ, Q8H, Dosing Weight 51.364, kg, Start date: 05/12/13 16:00:00, Duration: 30 day, Stop date: 06/11/13 8:00:00Con centration : 4mg/ml Benadryl 2012-08 No Jd 25 mg, 1 Grant elise 0-12 Sebastian cap, l 19:02: Abdunnur Route: PO, Her raya 00 Drug form: CAP, Q6H, PRN Itching, Start date: 05/12/13 14:02:00, Duration: 30 day, Stop date: 06/11/13 14:01:00(S john as: Benadryl) Benadryl 2012-08 No Jd 25 mg, 1 Grant elise 0-12 Sebastian cap, l 19:02: Abdunnur Route: PO, Her raya 00 Drug form: CAP, Q6H, PRN Itching, Start date: 05/12/13 14:02:00, Duration: 30 day, Stop date: 06/11/13 14:01:00(S john as: Benadryl) [place] 2012-08 No Jd 2 tab, Memoria 10/325 oral 0-12 Sebastian Route: PO, l tablet 14:00: Abdunnur Drug Form: H ermann 00 TAB, Dosing Weight 51.364, kg, Q4H, Start date: 05/12/13 9:00:00, Duration: 30 day, Stop date: 06/11/13 5:00:00Do not exceed 4gm/day of acetaminop hen. (Same as: [place] 325/10) [place] 2012-08 No Jd 2 tab, Memoria 10/325 oral 0-12 Sebastian Route: PO, l tablet 14:00: Abdunnur Drug Form: H ermann 00 TAB, Dosing Weight 51.364, kg, Q4H, Start date: 05/12/13 9:00:00, Duration: 30 day, Stop date: 06/11/13 5:00:00Do not exceed 4gm/day of acetaminop hen. (Same as: [place] 325/10) [place] 2012-08 No Jd 2 tab, Memoria 10/325 oral 0-12 Sebastian Route: PO, l tablet 13:00: Abdunnur Drug Form: H ermann 00 TAB, Dosing Weight 51.364, kg, Q4H, Start date: 05/12/13 8:00:00, Duration: 30 day, Stop date: 06/11/13 4:00:00 [place] 2012-08 No Jd 2 tab, Memoria 10/325 oral 0-12 Sebastian Route: PO, l tablet 13:00: Abdunnur Drug Form: H ermann 00 TAB, Dosing Weight 51.364, kg, Q4H, Start date: 05/12/13 8:00:00, Duration: 30 day, Stop date: 06/11/13 4:00:00 Dilaudid 2012-08 No Jd 0.5 mg, Memor ia 0-12 Sebastian 0.25 mL, l 11:47: Abdunnur Route: IV, Her raya 00 Drug form: INJ, Q3H, Dosing Weight 51.364, kg, PRN Pain, Start date: 05/12/13 6:47:00, Duration: 30 day, Stop date: 06/11/13 6:46:00(Sa me as: Dilaudid) Dilaudid 2012-08 No Jd 0.5 mg, Memor ia 0-12 Sebastian 0.25 mL, l 11:47: Abdunnur Route: IV, Her raya 00 Drug form: INJ, Q3H, Dosing Weight 51.364, kg, PRN Pain, Start date: 05/12/13 6:47:00, Duration: 30 day, Stop date: 06/11/13 6:46:00(Sa me as: Dilaudid) Benadryl 2012-08 No [place] 25 mg, 0.5 Memoria 0-11 n Randolph mL, Route: l 19:16: IVP, Drug [place] 00 form: INJ, ONCE, Dosing Weight 51.364, kg, Start date: 05/11/13 14:16:00, Stop date: 05/11/13 14:16:00(S john as: Benadryl) Benadryl 2012-08 No [place] 25 mg, 0.5 Memoria 0-11 n Randolph mL, Route: l 19:16: IVP, Drug [place] 00 form: INJ, ONCE, Dosing Weight 51.364, kg, Start date: 05/11/13 14:16:00, Stop date: 05/11/13 14:16:00(S john as: Benadryl) Cepacol 2012-08 No Angeline 1 spray, Grant elise Dual Relief 0-11 Jemal Route: l Sore Throat 17:00: Gabi MUCOUS H ermann Landis 5% 00 MEM, Drug topical Form: spray SOLN, Dosing Weight 51.364, kg, Q6H, Start date: 05/11/13 12:00:00, Duration: 30 day, Stop date: 06/10/13 6:00:00 Cepacol 2012-08 No Angeline 1 spray, Grant elise Dual Relief 0-11 Jemal Route: l Sore Throat 17:00: Gabi MUCOUS H ermann Landis 5% 00 MEM, Drug topical Form: spray SOLN, Dosing Weight 51.364, kg, Q6H, Start date: 05/11/13 12:00:00, Duration: 30 day, Stop date: 06/10/13 6:00:00 phenol 2012-08 No Angeline 1 spray, Memor ia topical 0-11 Jemal Route: l 1.4% spray 16:34: Gabi MUCOUS He rmann 00 MEM, Q6H, Drug form: SPRY, PRN Sore Throat, Start date: 05/11/13 11:34:00, Duration: 30 day, Stop date: 06/10/13 11:33:00Ch loraseptic [place] (Same as: Chlorasept ic, Sore Throat [place]) phenol 2012-08 No Angeline 1 spray, Memor ia topical 0-11 Jemal Route: l 1.4% spray 16:34: Gabi MUCOUS He rmann 00 MEM, Q6H, Drug form: SPRY, PRN Sore Throat, Start date: 05/11/13 11:34:00, Duration: 30 day, Stop date: 06/10/13 11:33:00Ch loraseptic [place] (Same as: Chlorasept ic, Sore Throat [place]) ketorolac 2012-08 No Jui-En 15 mg, 1 Me moria 15 mg/mL 0-11 Edward Adkins mL, Route: l injectable 16:00: IV, Drug Her raya solution 00 form: INJ, Q6Hnow, Dosing Weight 51.364, kg, Start date: 05/11/13 11:00:00, Duration: 4 day, Stop date: 05/15/13 5:00:00 ketorolac 2012-08 No Jui-En 15 mg, 1 Me moria 15 mg/mL 0-11 Edward Adkins mL, Route: l injectable 16:00: IV, Drug Her raya solution 00 form: INJ, Q6Hnow, Dosing Weight 51.364, kg, Start date: 05/11/13 11:00:00, Duration: 4 day, Stop date: 05/15/13 5:00:00 insulin 2012-08 No Lisa 7 unit, Grant elise regular 100 0-10 Dorothy Rajiv 0.07 mL, l units/mL 10:19: Route: [place] human 00 SUB-Q, recombinant Drug form: SOLN, PRN, Dosing Weight 51.364, kg, PRN Abnormal Lab Result, Start date: 05/10/13 5:19:00, Duration: 30 day, Stop date: 06/09/13 4:18:00( me as: Humulin R) Roll in palms of hands gently; Do not shake vigorously . "single patient use only" (Restricte d to patients requiring a dose > 60 units) Stable for 28 days at room temperatur e Expires in days from ____Date Dextrose 2012-08 No Lisa 6.25 gm, Me moria 50% Syringe 0-10 Dorothy Rajiv 12.5 mL, l 10:19: Route: Delta 00 IVP, Drug Form: INJ, Dosing Weight 51.364, kg, PRN, PRN Abnormal Lab Result, Start date: 05/10/13 5:19:00, Duration: 30 day, Stop date: 06/09/13 4:18:00 insulin 2012-08 No Lisa 7 unit, Grant elise regular 100 0-10 Dorothy Rajiv 0.07 mL, l units/mL 10:19: Route: [place] human 00 SUB-Q, recombinant Drug form: SOLN, PRN, Dosing Weight 51.364, kg, PRN Abnormal Lab Result, Start date: 05/10/13 5:19:00, Duration: 30 day, Stop date: 06/09/13 4:18:00(Sa me as: Humulin R) Roll in palms of hands gently; Do not shake vigorously . "single patient use only" (Restricte d to patients requiring a dose > 60 units) Stable for 28 days at room temperatur e Expires in days from ____Date Dextrose 2012-08 No Lisa 6.25 gm, Me moria 50% Syringe 0-10 Dorothy Vance 12.5 mL, l 10:19: Route: [place] 00 IVP, Drug Form: INJ, Dosing Weight 51.364, kg, PRN, PRN Abnormal Lab Result, Start date: 05/10/13 5:19:00, Duration: 30 day, Stop date: 06/09/13 4:18:00 potassium 2012-08 No Feliciano 20 mEq, Grant elise chloride 0-10 Jeff 100 mL, l 09:00: Route: Delta 00 IVPB, Q2H, Start date: 05/10/13 4:00:00, Duration: 2 doses or times, Stop date: 05/10/13 6:00:00( me as: KCL) Infuse no faster than 10 mEq/hr if given peripheral ly. magnesium 2012-08 No Feliciano 2 gm, 50 Mem oria sulfate 0-10 Jeff mL, Route: l 09:00: IVPB, Drug [place] 00 form: INJ, Q2H, Start date: 05/10/13 4:00:00, Duration: 2 doses or times, Stop date: 05/10/13 6:00:00 potassium 2012-08 No Feliciano 20 mEq, Grant elise chloride 0-10 Jeff 100 mL, l 09:00: Route: Delta 00 IVPB, Q2H, Start date: 05/10/13 4:00:00, Duration: 2 doses or times, Stop date: 05/10/13 6:00:00(Sa me as: KCL) Infuse no faster than 10 mEq/hr if given peripheral ly. magnesium 2012-08 No Feliciano 2 gm, 50 Mem oria sulfate 0-10 Jeff mL, Route: l 09:00: IVPB, Drug [place] 00 form: INJ, Q2H, Start date: 05/10/13 4:00:00, Duration: 2 doses or times, Stop date: 05/10/13 6:00:00 dexamethaso 2012-08 No Jd 4 mg, 1 Me moria ne 0-10 Sebastian mL, Route: l 05:00: Abdunnur IVP, Drug Herm dorothy 00 form: INJ, Q6H, Dosing Weight 51.364, kg, Start date: 05/10/13 0:00:00, Duration: 30 day, Stop date: 06/08/13 18:00:00Co ncentratio n: 4mg/ml dexamethaso 2012-08 No Jd 4 mg, 1 Me moria ne 0-10 Sebastian mL, Route: l 05:00: Abdunnur IVP, Drug Herm dorothy 00 form: INJ, Q6H, Dosing Weight 51.364, kg, Start date: 05/10/13 0:00:00, Duration: 30 day, Stop date: 06/08/13 18:00:00Co ncentratio n: 4mg/ml levetiracet 2012-08 No Sylvia Sundeep 500 mg, Memoria am + Sodium 0-10 Route: l Chloride 02:09: IVPB, [place] 0.9% IV 100 00 [id number], mL Dosing Weight 51.364, kg, Priority: NOW, Start date: 05/09/13 21:09:00, Duration: 30 day, Stop date: 06/08/13 11:00:00Sa me as Keppra Mix with 100ml NS, LR, or D5W levetiracet 2012-08 No Sylvia Sundeep 500 mg, Memoria am + Sodium 0-10 Route: l Chloride 02:09: IVPB, [place] 0.9% IV 100 00 [id number], mL Dosing Weight 51.364, kg, Priority: NOW, Start date: 05/09/13 21:09:00, Duration: 30 day, Stop date: 06/08/13 11:00:00Sa me as Keppra Mix with 100ml NS, LR, or D5W docusate 2012-08 No Jui-En 100 mg, 1 Me moria 0-10 Edward Adkins cap, l 02:00: Route: PO, [place] 00 Drug form: CAP, Q12H, Dosing Weight 51.364, kg, Start date: 05/09/13 21:00:00, Duration: 30 day, Stop date: 06/08/13 9:00:00(Sa me as: Colace) (Do Not Crush) famotidine 2012-08 No Jui-En 20 mg, 2 M emoria 0-10 Edward Adkins mL, Route: l 02:00: IVP, Drug form: INJ, Q12H, Dosing Weight 51.364, kg, Start date: 05/09/13 21:00:00, Duration: 30 day, Stop date: 06/08/13 9:00:00(Sa me as: Pepcid) Can be dilute in 5-10cc NS IVP: Slow IV push over at least 2 minutes. senna 2012-08 No Jui-En 8.6 mg, 1 Memor ia 0-10 Edward Adkins tab, l 02:00: Route: PO, Delta 00 Drug Form: TAB, Dosing Weight 51.364, kg, Q12H, Start date: 05/09/13 21:00:00, Duration: 30 day, Stop date: 06/08/13 9:00:00(Sa me as: Senokot) levetiracet 2012-08 No Sylvia Sundeep 500 mg, 1 Memoria am 0-10 tab, l 02:00: Route: PO, [place] 00 Drug form: TAB, Q12H, Dosing Weight 51.364, kg, Start date: 05/09/13 21:00:00, Duration: 30 day, Stop date: 06/08/13 9:00:00(Sa me as:Keppra) Saline 2012-08 No Jui-En 5 ml, Memoria Flush 0.9% 0-10 Edward Adkins Route: l 02:00: IVP, Drug [place] 00 Form: INJ, Dosing Weight 51.364, kg, Q12H, Start date: 05/09/13 21:00:00, Duration: 30 day, Stop date: 06/08/13 9:00:00(Sa me as: BD Posiflush) docusate 2012-08 No Jui-En 100 mg, 1 Me moria 0-10 Edward Adkins cap, l 02:00: Route: PO, Drug form: CAP, Q12H, Dosing Weight 51.364, kg, Start date: 05/09/13 21:00:00, Duration: 30 day, Stop date: 06/08/13 9:00:00(Sa me as: Colace) (Do Not Crush) famotidine 2012-08 No Jui-En 20 mg, 2 M emoria 0-10 Edward Adkins mL, Route: l 02:00: IVP, Drug form: INJ, Q12H, Dosing Weight 51.364, kg, Start date: 05/09/13 21:00:00, Duration: 30 day, Stop date: 06/08/13 9:00:00(Sa me as: Pepcid) Can be dilute in 5-10cc NS IVP: Slow IV push over at least 2 minutes. senna 2012-08 No Jui-En 8.6 mg, 1 Memor ia 0-10 Edward Adkins tab, l 02:00: Route: PO, Drug Form: TAB, Dosing Weight 51.364, kg, Q12H, Start date: 05/09/13 21:00:00, Duration: 30 day, Stop date: 06/08/13 9:00:00(Sa me as: Senokot) levetiracet 2012-08 No Sylvia Sudneep 500 mg, 1 Memoria am 0-10 tab, l 02:00: Route: PO, Drug form: TAB, Q12H, Dosing Weight 51.364, kg, Start date: 05/09/13 21:00:00, Duration: 30 day, Stop date: 06/08/13 9:00:00(Sa me as:Keppra) Saline 2012-08 No Jui-En 5 ml, Memoria Flush 0.9% 0-10 Edward Adkins Route: l 02:00: IVP, Drug [place] 00 Form: INJ, Dosing Weight 51.364, kg, Q12H, Start date: 05/09/13 21:00:00, Duration: 30 day, Stop date: 06/08/13 9:00:00(Sa co as: BD Posiflush) Phenergan 2012-08 No Sylvia Sundeep 12.5 mg, Memoria 0-09 0.5 mL, l 23:31: Route: [place] 00 IVPB, Drug form: INJ, Q4H, Dosing Weight 51.364, kg, PRN Nausea & Vomiting, Start date: 05/09/13 18:31:00, Duration: 30 day, Stop date: 06/08/13 18:30:00Do not give IV push. (Same as: Phenergan) Reglan 2012-08 No Sylvia Sundeep 10 mg, 2 M emoria 0-09 mL, Route: l 23:31: IVP, Drug [place] 00 form: INJ, Q6H, Dosing Weight 51.364, kg, PRN Nausea & Vomiting, Start date: 05/09/13 18:31:00, Duration: 30 day, Stop date: 06/08/13 18:30:00(S john as: Reglan) Phenergan 2012-08 No Sylvia Sundeep 12.5 mg, Memoria 0-09 0.5 mL, l 23:31: Route: Delta 00 IVPB, Drug form: INJ, Q4H, Dosing Weight 51.364, kg, PRN Nausea & Vomiting, Start date: 05/09/13 18:31:00, Duration: 30 day, Stop date: 06/08/13 18:30:00Do not give IV push. (Same as: Phenergan) Reglan 2012-08 No Sylvia Sundeep 10 mg, 2 M emoria 0-09 mL, Route: l 23:31: IVP, Drug [place] 00 form: INJ, Q6H, Dosing Weight 51.364, kg, PRN Nausea & Vomiting, Start date: 05/09/13 18:31:00, Duration: 30 day, Stop date: 06/08/13 18:30:00(S john as: Reglan) cefazolin 2013-1 No Jui-En 1 gm, Memor ia (SCIP) 0-09 Edward Adkins Route: l 23:00: IVPB, Drug [place] 00 form: PDR/INJ, ABXQ8H, Dosing Weight 51.364, kg, Start date: 05/09/13 18:00:00, Duration: 1 day, Stop date: 05/10/13 10:00:00(S john As: Ancef, Kefzol) dexamethaso 2012-08 No Sylvia Sundeep 4 mg, 1 Memoria ne 0-09 tab, l 23:00: Route: PO, [place] 00 Drug form: TAB, Q6H, Dosing Weight 51.364, kg, Start date: 05/09/13 18:00:00, Duration: 30 day, Stop date: 06/08/13 12:00:00Gi ve with food. (Same As: Decadron) cefazolin 2012-08 No Jui-En 1 gm, Memor ia (SCIP) 0- Edward Adkins Route: l 23:00: IVPB, Drug [place] 00 form: PDR/INJ, ABXQ8H, Dosing Weight 51.364, kg, Start date: 05/09/13 18:00:00, Duration: 1 day, Stop date: 05/10/13 10:00:00(S john As: Ancef, Kefzol) dexamethaso 2012-08 No Sylvia Sundeep 4 mg, 1 Memoria ne 0-09 tab, l 23:00: Route: PO, Delta 00 Drug form: TAB, Q6H, Dosing Weight 51.364, kg, Start date: 05/09/13 18:00:00, Duration: 30 day, Stop date: 06/08/13 12:00:00Gi ve with food. (Same As: Decadron) cefazolin 2012-08 No Jui-En 1 gm, Memor ia (SCIP) 0- Edward Adkins Route: l 21:00: IVPB, Drug [place] 00 form: PDR/INJ, ABXQ8H, Dosing Weight 51.364, kg, Start date: 05/09/13 16:00:00, Duration: 1 day, Stop date: 05/10/13 8:00:00(Sa me As: Ancef, Kefzol) cefazolin 2012-08 No Jui-En 1 gm, Memor ia (SCIP) 0 Edward Adkins Route: l 21:00: IVPB, Drug [place] 00 form: PDR/INJ, ABXQ8H, Dosing Weight 51.364, kg, Start date: 05/09/13 16:00:00, Duration: 1 day, Stop date: 05/10/13 8:00:00(Sa co As: Ancef, Kefzol) Zofran 2012-08 No Noah 4 mg, 2 Memori a 0-09 Gee mL, Route: l 20:59: [place] IVP, Drug Randi nn 00 form: INJ, ONCE, Dosing Weight 51.364, kg, PRN Nausea, Start date: 05/09/13 15:59:00(S john as: Zofran) Zofran 2012-08 No Noah 4 mg, 2 Memori a 0-09 Gee mL, Route: l 20:59: Kiran IVP, Drug Randi nn 00 form: INJ, ONCE, Dosing Weight 51.364, kg, PRN Nausea, Start date: 05/09/13 15:59:00(S john as: Zofran) Zolvit oral 2012-08 No Noah 15 mL, Me moria liquid 0-09 Gee Route: PO, l 20:39: [place] Dosing Delta 00 Weight 51.364, kg, ONCE, PRN Pain, one time dose, Start date: 05/09/13 15:39:00 Zolvit oral 2012-08 No Noah 15 mL, Me moria liquid 0-09 Gee Route: PO, l 20:39: Kiran Dosing Delta 00 Weight 51.364, kg, ONCE, PRN Pain, one time dose, Start date: 05/09/13 15:39:00 bisacodyl 2012-08 No Jui-En 10 mg, 1 Me moria 0-09 Edward Adkins supp, l 18:10: Route: MT, Delta 00 Drug form: SUPP, Daily, Dosing Weight 51.364, kg, PRN Constipati on, Start date: 05/09/13 13:10:00, Duration: 30 day, Stop date: 06/08/13 13:09:00(S john As: Dulcolax, Bisco-Lax) ondansetron 2012-08 No Jd 4 mg, 2 Me moria 0-09 Sebastian mL, Route: l 18:10: Abdunnur IVP, Drug Herm dorothy 00 form: INJ, Q8H, Dosing Weight 51.364, kg, PRN Nausea & Vomiting, Start date: 05/09/13 13:10:00, Duration: 30 day, Stop date: 06/08/13 13:09:00(S john as: Zofran) morphine 2012-08 No Lisa 2 mg, 1 Mem oria Sulfate 0 Dorothy Rajiv mL, Route: l 18:10: IVP, Drug [place] 00 form: INJ, Q1H, Dosing Weight 51.364, kg, PRN Pain Score 7-10, Start date: 05/09/13 13:10:00, Duration: 30 day, Stop date: 06/08/13 12:09:00(S john as:MORPhin e Sulfate) acetaminoph 2012-08 No Jd 2 tab, Mem oria en-hydrocod 0 Sebastian Route: PO, l one 325 18:10: Abdunnur Drug Form: [place] mg-10 mg 00 TAB, oral tablet Dosing Weight 51.364, kg, Q4H, PRN Pain Score 7-10, Start date: 05/09/13 13:10:00, Duration: 30 day, Stop date: 06/08/13 13:09:00Do not exceed 4gm/day of acetaminop hen. (Same as: [place] 325/10) Saline 2012-08 No Jui-En 5 ml, Memoria Flush 0.9% [facility]: l 18:10: IVP, Drug [place] 00 Form: INJ, Dosing Weight 51.364, kg, PRN, PRN Line Flush, Start date: 05/09/13 13:10:00, Duration: 30 day, Stop date: 06/08/13 12:09:00(S john as: BD Posiflush) acetaminoph 2012-08 No Jd 650 mg, Me moria en 0 Sebastian 20.3 mL, l 18:10: Abdunnur Route: PO, Her raya 00 Drug form: LIQ, Q4H, Dosing Weight 51.364, kg, PRN Pain 1-3/Temp > 99.5 F, Start date: 05/09/13 13:10:00, Duration: 30 day, Stop date: 06/08/13 13:09:00Ma x acetaminop hen = 4000mg/day (4 gm/day). (Same as: Tylenol) Sodium 2012-08 No Jui-En 1,000 mL, Grant elise Chloride 0-09 Edward Adkins Rate: 100 l 0.9% IV 18:10: ml/hr, Delta 1000 mL 00 Infuse over: 10 hr, Route: IV, Dosing Weight 51.364 kg, Total Volume: 1,000, Start date: 05/09/13 13:10:00, Duration: 30 day, Stop date: 06/08/13 13:09:00 acetaminoph 2012-08 No Jd 1 tab, Mem oria en-hydrocod 0-09 Sebastian Route: PO, l one 325 18:10: Abdunnur Drug Form: [place] mg-5 mg 00 TAB, oral tablet Dosing Weight 51.364, kg, Q4H, PRN Pain Score 1-3, Start date: 05/09/13 13:10:00, Duration: 30 day, Stop date: 06/08/13 13:09:00(S john as: [place] 325/5) Do not exceed 4gm/day of acetaminop hen. bisacodyl 2012-08 No Jui-En 10 mg, 1 Me moria 0-09 Edward Adkins supp, l 18:10: Route: MT, Delta 00 Drug form: SUPP, Daily, Dosing Weight 51.364, kg, PRN Constipati on, Start date: 05/09/13 13:10:00, Duration: 30 day, Stop date: 06/08/13 13:09:00(S john As: Dulcolax, Bisco-Lax) ondansetron 2012-08 No Jd 4 mg, 2 Me moria 0-09 Sebastian mL, Route: l 18:10: Abdunnur IVP, Drug Herm dorothy 00 form: INJ, Q8H, Dosing Weight 51.364, kg, PRN Nausea & Vomiting, Start date: 05/09/13 13:10:00, Duration: 30 day, Stop date: 06/08/13 13:09:00(S john as: Zofran) morphine 2012-08 No Lisa 2 mg, 1 Mem oria Sulfate 0 Dorothy Rajiv mL, Route: l 18:10: IVP, Drug [place] 00 form: INJ, Q1H, Dosing Weight 51.364, kg, PRN Pain Score 7-10, Start date: 05/09/13 13:10:00, Duration: 30 day, Stop date: 06/08/13 12:09:00(S john as:MORPhin e Sulfate) acetaminoph 2012-08 No Jd 2 tab, Mem oria en-hydrocod 0- Sebastian Route: PO, l one 325 18:10: Abdunnur Drug Form: [place] mg-10 mg 00 TAB, oral tablet Dosing Weight 51.364, kg, Q4H, PRN Pain Score 7-10, Start date: 05/09/13 13:10:00, Duration: 30 day, Stop date: 06/08/13 13:09:00Do not exceed 4gm/day of acetaminop hen. (Same as: [place] 325/10) Saline 2012-08 No Jui-En 5 ml, Memoria Flush 0.9% 0 Edward Adkins Route: l 18:10: IVP, Drug [place] 00 Form: INJ, Dosing Weight 51.364, kg, PRN, PRN Line Flush, Start date: 05/09/13 13:10:00, Duration: 30 day, Stop date: 06/08/13 12:09:00(S john as: BD Posiflush) acetaminoph 2012-08 No Jd 650 mg, Me moria en 009 Sebastian 20.3 mL, l 18:10: Abdunnur Route: PO, Her raya 00 Drug form: LIQ, Q4H, Dosing Weight 51.364, kg, PRN Pain 1-3/Temp > 99.5 F, Start date: 05/09/13 13:10:00, Duration: 30 day, Stop date: 06/08/13 13:09:00Ma x acetaminop hen = 4000mg/day (4 gm/day). (Same as: Tylenol) Sodium 2012-08 No Jui-En 1,000 mL, Grant elise Chloride 0- Edward Adkins Rate: 100 l 0.9% IV 18:10: ml/hr, [place] 1000 mL 00 Infuse over: 10 hr, Route: IV, Dosing Weight 51.364 kg, Total Volume: 1,000, Start date: 05/09/13 13:10:00, Duration: 30 day, Stop date: 06/08/13 13:09:00 acetaminoph 2012-08 No Jd 1 tab, Mem oria en-hydrocod 0 Sebastian Route: PO, l one 325 18:10: Abdunnur Drug Form: [place] mg-5 mg 00 TAB, oral tablet Dosing Weight 51.364, kg, Q4H, PRN Pain Score 1-3, Start date: 05/09/13 13:10:00, Duration: 30 day, Stop date: 06/08/13 13:09:00(S john as: [place] 325/5) Do not exceed 4gm/day of acetaminop hen. ondansetron 2012-08 No Jessica 4 mg, Mem oria 0-09 [place] Route: l 17:36: Mén[place] IVP, ONCE, Randi nn 00 Dosing Weight 51.364, kg, PRN Nausea & Vomiting, Start date: 05/09/13 12:36:00 naloxone 2012-08 No Noah 0.04 mg, Mem oria 0-09 Gee Route: l 17:36: [place] IVP, Delta 00 Q2MIN, Dosing Weight 51.364, kg, PRN Narcotic Reversal, Start date: 05/09/13 12:36:00, Duration: 8 doses or times, Stop date: Limited # of times flumazenil 2012-08 No Noah 0.2 mg, Me moria 0-09 Gee Route: l 17:36: Kiran IVP, PRN, Randi nn 00 Dosing Weight 51.364, kg, PRN Benzodiaze pine Reversal, Initial dose, Start date: 05/09/13 12:36:00, Duration: 30 day, Stop date: 06/08/13 11:35:00 hydromorpho 2012-08 No Noah 0.5 mg, M emoria ne 0-09 Gee Route: l 17:36: [place] IVP, Delta 00 Q5Min, Dosing Weight 51.364, kg, PRN Pain Score 7-10, Start date: 05/09/13 12:36:00, Duration: 5 doses or times, Stop date: Limited # of times ondansetron 2012-08 No Jessica 4 mg, Mem oria 0-09 [place] Route: l 17:36: Mén[place] IVP, ONCE, Randi nn 00 Dosing Weight 51.364, kg, PRN Nausea & Vomiting, Start date: 05/09/13 12:36:00 naloxone 2012-08 No Noah 0.04 mg, Mem oria 0-09 Gee Route: l 17:36: [place] IVP, [place] 00 Q2MIN, Dosing Weight 51.364, kg, PRN Narcotic Reversal, Start date: 05/09/13 12:36:00, Duration: 8 doses or times, Stop date: Limited # of times flumazenil 2012-08 No Noah 0.2 mg, Me moria 0-09 Gee Route: l 17:36: Kiran IVP, PRN, Randi nn 00 Dosing Weight 51.364, kg, PRN Benzodiaze pine Reversal, Initial dose, Start date: 05/09/13 12:36:00, Duration: 30 day, Stop date: 06/08/13 11:35:00 hydromorpho 2012-08 No Noah 0.5 mg, M emoria ne 0-09 Gee Route: l 17:36: [place] IVP, [place] 00 Q5Min, Dosing Weight 51.364, kg, PRN Pain Score 7-10, Start date: 05/09/13 12:36:00, Duration: 5 doses or times, Stop date: Limited # of times cefazolin 2012-08 No Feliciano 2 gm, 50 Mem oria 0-09 Jeff mL, Route: l 04:00: IVPB, Drug [place] 00 form: INJ, PRE OP, Start date: 05/08/13 23:00:00, Duration: 1 day, Stop date: 05/09/13 22:59:00 cefazolin 2012-08 No Feliciano 2 gm, 50 Mem oria 0-09 Jeff mL, Route: l 04:00: IVPB, Drug [place] 00 form: INJ, PRE OP, Start date: 05/08/13 23:00:00, Duration: 1 day, Stop date: 05/09/13 22:59:00 Vicodin 5 2012-08 No 2 tab, PO, Me moria mg-300 mg 0-08 Q6H, PRN, l oral tablet 16:29: as needed H ermann 11 for pain, Substituti on Allowed, Maintenanc e, TAB Vicodin 5 2012-08 No 2 tab, PO, Me moria mg-300 mg 0-08 Q6H, PRN, l oral tablet 16:29: as needed H ermann 11 for pain, Substituti on Allowed, Maintenanc e, TAB azithromyci azithromyci No azithromyc [facility]ia n 250 mg n 250 mg in 250 mg Me dical tablet tablet tablet doxycycline doxycycline No doxycyclin [facility]ia monohydrate monohydrate e M edical 100 mg 100 mg monohydrat tablet TK 1 tablet TK 1 e 100 mg T PO BID T PO BID tablet TK FOR 2 DAYS FOR 2 DAYS 1 T PO BID STARTING ON STARTING ON FOR 2 DAYS DAY OF DAY OF STARTING PROCEDURE PROCEDURE ON DAY OF PROCEDURE Endometrin Endometrin No Endometrin Privia 100 mg 100 mg 100 mg Medical vaginal vaginal vaginal insert insert insert estradiol 2 estradiol 2 No estradiol [facility]ia mg tablet mg tablet 2 mg Medic al tablet gabapentin gabapentin No gabapentin [facility]ia 300 mg 300 mg 300 mg Medical capsule TK capsule TK capsule TK 1 C PO QPM 1 C PO QPM 1 C PO QPM BEFORE BED BEFORE BED BEFORE BED FOR TOTAL FOR TOTAL FOR TOTAL OF 5 DAYS OF 5 DAYS OF 5 DAYS FOR PAIN FOR PAIN FOR PAIN Gonal-F RFF Gonal-F RFF No Gonal-F [facility] Redi-Ject Redi-Ject RFF Medic al 300 300 Redi-Ject unit/0.5 mL unit/0.5 mL 300 subcutaneou subcutaneou unit/0.5 s pen s pen mL injector injector subcutaneo us pen injector ketorolac ketorolac No ketorolac [facility] 10 mg 10 mg 10 mg Medical tablet TK 1 tablet TK 1 tablet TK T PO 4 TO 6 T PO 4 TO 6 1 T PO 4 XD PRF PAIN XD PRF PAIN TO 6 XD PRF PAIN letrozole letrozole No letrozole [facility] 2.5 mg 2.5 mg 2.5 mg Medical tablet TK 2 tablet TK 2 tablet TK TS PO QD TS PO QD 2 TS PO QD Lidocaine Lidocaine No Lidocaine [facility] Viscous 2 % Viscous 2 % Viscous 2 Medical mucosal mucosal % mucosal solution solution solution SWISH AND SWISH AND SWISH AND SPIT OR SPIT OR SPIT OR SWALLOW 5ML SWALLOW 5ML SWALLOW EVERY 8 EVERY 8 5ML EVERY HOURS HOURS 8 HOURS NEEDED FOR NEEDED FOR NEEDED FOR SORE SORE SORE THROAT. THROAT. THROAT. ondansetron ondansetron No ondansetro [facility] 8 mg 8 mg n 8 mg Medical disintegrat disintegrat disintegra ing tablet ing tablet ting DISSOLVE 1 DISSOLVE 1 tablet TABLET ON TABLET ON DISSOLVE 1 THE TONGUE THE TONGUE TABLET ON EVERY 6 EVERY 6 THE TONGUE HOURS HOURS EVERY 6 NEEDED FOR NEEDED FOR HOURS NAUSEA NAUSEA NEEDED FOR NAUSEA ondansetron ondansetron No ondansetro [facility] HCl 8 mg HCl 8 mg n HCl 8 mg M edical tablet TK 1 tablet TK 1 tablet TK T PO Q 8 H T PO Q 8 H 1 T PO Q 8 PRF NAUSEA PRF NAUSEA H PRF NAUSEA Ovidrel 250 Ovidrel 250 No Ovidrel [facility] mcg/0.5 mL mcg/0.5 mL 250 Med ical subcutaneou subcutaneou mcg/0.5 mL s syringe s syringe subcutaneo us syringe prednisone prednisone No prednisone [facility] 5 mg tablet 5 mg tablet 5 mg M edical TK 1 T PO TK 1 T PO tablet TK BID FOR 6 BID FOR 6 1 T PO BID DAYS DAYS FOR 6 DAYS progesteron progesteron No progestero [facility] micronized micronized micronized 200 mg 200 mg 200 mg capsule TK capsule TK capsule TK ONE C PO ONE C PO ONE C PO QHS QHS QHS Immunizations Ordered Filled Immunization Date Status Comments Sour e Immunization Name Name Tdap 2018-06-02 Completed [facility] 00:00:00 [facility] Influenza [facility] 2018[facility]-16 [facility] 6+ [place] [facility] Vital Signs Vital Name Observation Time Observation Value Comments Source Heart Rate 2014-10-31 17:17:00 Ger[facility] Sorenson Respitory Rate 2014-10-31 17:17:00 Jonel Grijalva Systolic (mm Hg) 2014-10-31 17:17:00 [facility] [place] Diastolic (mm Hg) 2014-10-31 17:17:00 [facility] [place] Temperature Oral (F) 2014-10-31 17:17:00 98.3 F [facility] [place] Systolic (mm Hg) 2014-10-31 14:16:00 [facility] [place] Diastolic (mm Hg) 2014-10-31 14:16:00 [facility] Respitory Rate 2014-10-31 14:16:00 [facility] Temperature Oral (F) 2014-10-31 14:16:00 97.4 F [facility] Heart Rate 2014-10-31 14:16:00 [facility] [place] Respitory Rate 2014-10-31 08:25:00 [facility] Systolic (mm Hg) 2014-10-31 08:25:00 [facility] [place] Diastolic (mm Hg) 2014-10-31 08:25:00 [facility] [place] Heart Rate 2014-10-31 08:25:00 [facility] [place] Temperature Oral (F) 2014-10-31 08:25:00 98.3 F [facility] Weight 2014-10-29 18:57:00 [facility] [place] BMI Calculated 2014-10-29 18:57:00 [facility] Height 2014-10-29 18:57:00 165.1 cm [facility] [place] BMI Calculated 2014-10-29 11:46:00 [facility] [place] Weight 2014-10-29 11:46:00 [facility] [place] Height 2014-10-29 11:46:00 165.1 cm [facility] Systolic (mm Hg) 2014-07-16 13:10:00 [facility] [place] Temperature Oral (F) 2014-07-16 13:10:00 97.7 F [facility] [place] Heart Rate 2014-07-16 13:10:00 [facility] [place] Respitory Rate 2014-07-16 13:10:00 [facility] [place] Diastolic (mm Hg) 2014-07-16 13:10:00 [facility] [place] Heart Rate 2014-07-16 10:41:00 [facility] Respitory Rate 2014-07-16 10:41:00 [facility] Systolic (mm Hg) 2014-07-16 10:41:00 [facility] Temperature Oral (F) 2014-07-16 10:41:00 98 F [facility] [place] Diastolic (mm Hg) 2014-07-16 10:41:00 [facility] [place] Systolic (mm Hg) 2014-07-16 06:01:00 [facility] Respitory Rate 2014-07-16 06:01:00 [facility] [place] Diastolic (mm Hg) 2014-07-16 06:01:00 [facility] Temperature Oral (F) 2014-07-16 06:01:00 97.5 F [facility] Heart Rate 2014-07-16 06:01:00 [facility] [place] Height 2014-07-11 20:53:00 165.1 cm [facility] BMI Calculated 2014-07-11 20:53:00 [facility] [place] Weight 2014-07-11 20:53:00 [facility] Height 2014-05-15 19:36:00 165.1 cm [facility] Weight 2014-05-15 19:36:00 [facility] [place] BMI Calculated 2014-05-15 19:36:00 [facility] Temperature Oral (F) 2014-05-06 21:16:00 98.6 F [facility] Heart Rate 2014-05-06 21:16:00 [facility] [place] Respitory Rate 2014-05-06 21:16:00 [facility] Systolic (mm Hg) 2014-05-06 21:16:00 [facility] [place] Diastolic (mm Hg) 2014-05-06 21:16:00 [facility] [place] Weight 2014-05-06 18:09:00 [facility] [place] Diastolic (mm Hg) 2014-05-06 18:09:00 [facility] [place] Temperature Oral (F) 2014-05-06 18:09:00 98.2 F [facility] [place] Systolic (mm Hg) 2014-05-06 18:09:00 [facility] [place] Respitory Rate 2014-05-06 18:09:00 [facility] Heart Rate 2014-05-06 18:09:00 [facility] [place] Weight 2013-06-05 14:57:00 [facility] Height 2013-06-05 14:57:00 162.56 cm [facility] Respitory Rate 2013-06-01 21:24:00 [facility] [place] Heart Rate 2013-06-01 21:24:00 [facility] [place] Temperature Oral (F) 2013-06-01 21:24:00 96.7 F [facility] [place] Diastolic (mm Hg) 2013-06-01 21:24:00 [facility] [place] Systolic (mm Hg) 2013-06-01 21:24:00 [facility] [place] Diastolic (mm Hg) 2013-06-01 16:52:00 [facility] [place] Heart Rate 2013-06-01 16:52:00 [facility] [place] Respitory Rate 2013-06-01 16:52:00 [facility] Systolic (mm Hg) 2013-06-01 16:52:00 [facility] Temperature Oral (F) 2013-06-01 16:52:00 98.7 F [facility] [place] Temperature Oral (F) 2013-06-01 13:33:00 98.4 F [facility] Diastolic (mm Hg) 2013-06-01 13:33:00 [facility] [place] Heart Rate 2013-06-01 13:33:00 [facility] [place] Respitory Rate 2013-06-01 13:33:00 [facility] [place] Systolic (mm Hg) 2013-06-01 13:33:00 [facility] [place] Height 2013-05-31 20:26:00 165.1 cm [facility] [place] Weight 2013-05-31 20:26:00 [facility] Respitory Rate 2013-05-13 16:19:00 [facility] Heart Rate 2013-05-13 16:19:00 [facility] [place] Temperature Oral (F) 2013-05-13 16:19:00 96.8 F [facility] [place] Diastolic (mm Hg) 2013-05-13 16:19:00 [facility] [place] Systolic (mm Hg) 2013-05-13 16:19:00 [facility] [place] Respitory Rate 2013-05-13 14:11:00 [facility] [place] Diastolic (mm Hg) 2013-05-13 14:11:00 [facility] [place] Systolic (mm Hg) 2013-05-13 14:11:00 [facility] [place] Heart Rate 2013-05-13 14:11:00 [facility] [place] Temperature Oral (F) 2013-05-13 14:11:00 96.9 F [facility] Temperature Oral (F) 2013-05-13 10:30:00 98.4 F [facility] [place] Respitory Rate 2013-05-13 10:30:00 [facility] Systolic (mm Hg) 2013-05-13 10:30:00 [facility] [place] Heart Rate 2013-05-13 10:30:00 [facility] [place] Diastolic (mm Hg) 2013-05-13 10:30:00 [facility] Weight 2013-05-09 11:49:00 [facility] [place] Height 2013-05-09 11:49:00 165.1 cm [facility] [place] Weight 2013-05-08 16:29:00 [facility] [place] Height 2013-05-08 16:29:00 165.1 cm [facility] Heart Rate 2013-04-04 12:54:00 [facility] Temperature Oral (F) 2013-04-04 12:54:00 97.7 F [facility] [place] Diastolic (mm Hg) 2013-04-04 12:54:00 [facility] [place] Systolic (mm Hg) 2013-04-04 12:54:00 [facility] Respitory Rate 2013-04-04 12:54:00 [facility] [place] Respitory Rate 2013-04-04 02:39:00 [facility] [place] Systolic (mm Hg) 2013-04-04 02:39:00 [facility] [place] Diastolic (mm Hg) 2013-04-04 02:39:00 [facility] [place] Temperature Oral (F) 2013-04-04 02:39:00 97.5 F [facility] [place] Weight 2013-04-03 14:28:00 [facility] Height 2013-04-03 14:28:00 172.72 cm [facility] Procedures Procedure Date / Time Performed Performing Clinician [facility] ce [id number] 2022-07-01 00:00:00 JAGJIT [facility] s [id number] 2021-03-03 00:00:00 NATY [facility] Other Excision or 2013-05-09 05:00:00 [facility] Destruction of Lesion or Tissue of Brain Other Immobilization, 2013-05-09 05:00:00 [facility] Pressure, and Attention to Wound Delivery [facility] 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 Encounters Start End Encounter Admission Attending Care Care Encounter Source Date/Time Date/Time Type Type Clinicians Facility Department ID 2022-12-17 Outpatient nullFlavo [facility] [id number] [facility] 09:39:15 r Medical 06 [facility] 2021-07-10 Outpatient nullFlavo [facility] [id number] [facility] 19:18:53 r [address] [place] [address] 2020-12-04 Inpatient LAUREL Calderon [facility] [id number] [facility] 10:52:23 Maria [facility] 2022-07-01 2022-07-03 Inpatient GUILLERMO Ferreira [facility] OBPP [id number] [facility] 11:40:00 17:08:00 Camila [facility] 2022-05-21 2022-05-21 Outpatient GC_TNC_Lovi PRIV PRIV [id number] [facility] 00:00:00 00:00:00 tt_S [id number] Medica l 2022-04-29 2022-04-29 Outpatient GC_TNC_Lovi PRIV PRIV [id number] [facility] 00:00:00 00:00:00 tt_S [id number] Medica 2022-04-29 2022-04-29 Merrill Damon [facility] [id number] [facility] 00:00:00 00:00:00 Lizz [facility] Boby herrera MD: [id number] GC_TNC_Sout [facility], Office* [address], [place] [address] , Ph. 2022-04-28 2022-04-28 Outpatient GC_TNC_Lovi PRIV PRIV [id number] [facility] 00:00:00 00:00:00 tt_S [id number] Medica l 2022-01-14 2022-01-14 Outpatient GC_TNC_Lovi PRIV PRIV [id number] [facility] 00:00:00 00:00:00 tt_S [id number] Medica l 2020-05-09 2020-05-09 Outpatient BRUNA Allen ADMI [id number] [facility] 14:00:00 14:00:[address] [place] [address] 2019-01-26 2019-01-26 Patient Doctor KONG [id number] [place] [address] 00:00:00 00:00:00 Secure Msg Unassigned, ANNE [id number] [place] [facility] [id number] Dragan as [phone] [address] 2019-01-26 2019-01-26 Patient Doctor LUANN [id number] 00:00:00 00:00:00 Secure Msg Unassigned, ANNE [facility]1.13.[address] [facility] [id number] [id number] 2016-04-27 2016-04-28 Outpt Diag nullFlavo [facility] [id number] Memoria 15:36:00 04:59:00 Services r Outpatient 09 l [facility] [place] 2016-04-27 2016-04-28 Outpt Diag nullFlavo [facility] [id number] Memoria 15:36:00 04:59:00 Services r Outpatient 09 l [facility] 2016-04-27 2016-04-27 Outpatient MERRITT GottiP MHOIP [id number] 10:36:00 23:59:00 Raisa Leida Savage 2015-10-28 2015-10-28 Outpatient MHIE MHIE [id number] Mem[facility] 10:00:00 10:00:00 02 [facility] [place] 2015-10-28 2015-10-28 Outpatient MHIE MHIE [id number] [facility] 10:00:00 10:00:00 02 iva Sorenson 2015-10-14 2015-10-14 Outpatient MHIE MHIE [id number] [facility] 10:30:00 10:30:00 01 iva Sorenson 2015-10-14 2015-10-14 Outpatient MHIE MHIE [id number] [facility] 10:30:00 10:30:00 01 [facility] [place] 2015-04-28 2015-04-29 Outpt Diag nullFlavo [facility] [id number] Mem[facility] 15:17:00 04:59:00 Services r Outpatient 07 l [facility] [place] 2015-04-28 2015-04-29 Outpt Diag nullFlavo [facility] [id number] [facility] 15:17:00 04:59:00 Services r Outpatient 07 l [facility] [place] 2015-04-28 2015-04-28 [facility] [id number] 10:17:00 23:59:00 Feliciano 07 2015-04-28 2015-04-28 Outpatient IE IE [id number] [facility] 12:00:00 12:00:00 00 [facility] 2015-04-28 2015-04-28 Outpatient MHIE IE [id number] [facility] 12:00:00 12:00:00 00 [facility] 2014-10-29 2014-10-31 Inpatient nullFlavo [facility] [id number] [facility] 10:47:00 20:30:[address] 2014-10-29 2014-10-31 Inpatient [facility] [id number] Memoria 10:47:00 20:30:[address] 2014-10-29 2014-10-31 Outpatient Mandcarteru, 2.16.840. 2.16.840.1 . [id number] 05:47:00 15:30:00 Chanel [id number]. [id number] 10 Genoveva 3.615.0.1 5.0.543 07 8941-01-23 2014-08-24 Outpt Diag nullFlavo [facility] [id number] Mem[facility] 19:12:00 05:59:00 Services r Outpatient 04 [facility] 2014-08-23 2014-08-24 Outpt Diag nullFlavo [facility] [id number] Memoria 19:12:00 05:59:00 Services r Outpatient 04 [facility] 2014-08-23 2014-08-23 Outpatient Jeff, 2.16.840. 2.16.840.1. 4 [id number] 13:12:00 23:59:00 Feliciano [id number]. [id number] 04 3.615.0.1 5.0.682 68 8234-01-22 2014-08-23 Outpt Diag nullFlavo [facility] [id number] Mem[facility] 19:39:00 05:59:00 Services r Outpatient 03 [facility] 2014-08-22 2014-08-23 Outpt Diag nullFlavo [facility] [id number] Memoria 19:39:00 05:59:00 Services r Outpatient 03 [facility] 2014-08-22 2014-08-22 Outpatient Jeff, 2.16.840. 2.16.840.1. 4 [id number] 13:39:00 23:59:00 Feliciano 1.311234. [id number] 03 3.615.0.1 5.0.707 69 7722-12-15 2014-07-16 [facility] [id number] Mem[facility] 11:37:00 17:10:[address] 2014-07-15 2014-07-16 [facility] [id number] Mem[facility] 11:37:00 17:10:[address] 2014-07-15 2014-07-16 Outpatient Jeff, 2.16.840. 2.16.840.1. 4 [id number] 05:37:00 11:10:00 Feliciano 1.136347. [id number] 09 3.615.0.1 5.0.063 12 2150-10-15 2014-05-16 Outpatient nullFlavo [facility] [id number] Memoria 17:58:00 04:59:[address] 2014-05-15 2014-05-16 Outpatient nullFlavo [facility] [id number] Memoria 17:58:00 04:59:[address] 2014-05-15 2014-05-15 Outpatient Hope, 2.16.840. 2.16.840.1. 4 [id number] 12:58:00 23:59:00 [place] 1.752385. [id number] 08 Lopez 3.615.0.1 5.0.731 74 8697-10-06 2014-05-06 [facility] [id number] Mem[facility] 17:40:00 21:19:00 Emergency r [place] [facility] 2014-05-06 2014-05-06 EC nullFlavo [facility] [id number] [facility] 17:40:00 21:19:00 Emergency r [address] [facility] 2014-05-06 2014-05-06 Outpatient Chris, 2.16.840. 2.16.840.1. [id number] 12:40:00 16:19:00 Indio Reynolds 1.577253. [id number] 07 3.615.0.1 5.0.196 02 9100-12-12 2013-07-12 Outpatient 2.16.840. 2.16.840.1. 4 [id number] [facility] 11:24:00 23:59:00 [id number]. [id number] Outpati 3.615.0.1 5.0.100 ent 00 [facility] 2013-06-05 2013-06-05 Outpatient 2.16.840. 2.16.840.1. 4 [id number] [facility] 08:08:00 23:59:00 1.750961. [id number] l 3.615.0.1 5.0.100 [facility] 2013-05-31 2013-06-01 OU nullFlavo [facility] [id number] Memoria 15:25:00 18:20:[address] 2013-05-31 2013-06-01 OU nullFlavo [facility] [id number] Memoria 15:25:00 18:20:[address] 2013-05-31 2013-06-01 Outpatient 2.16.840. 2.16.840.1. 4 [id number] [facility] 15:25:00 18:20:00 1.722246. 723148.3.61 l 3.615.0.1 5.0.100 [facility] 00 [facility] 2013-05-09 2013-05-13 Inpatient nullFlavo [facility] [id number] Memoria 05:45:00 13:00:[address] 2013-05-09 2013-05-13 Inpatient nullFlavo [facility] [id number] Mem[facility] 05:45:00 13:00:[address] 2013-05-09 2013-05-13 Outpatient 2.16.840. 2.16.840.1. 4 [id number] [facility] 05:45:00 13:00:00 1.168041. 980936.3.61 l 3.615.0.1 5.0.100 [facility] 00 [facility] 2013-05-09 2013-05-13 Outpatient 2.16.840. 2.16.840.1. 4 [id number] [facility] 05:45:00 13:00:00 1.346195. 696088.3.61 l 3.615.0.1 5.0.100 [facility] 00 [facility] 2013-05-09 2013-05-13 Outpatient 2.16.840. 2.16.840.1. 4 [id number] [facility] 05:45:00 13:00:00 1.436512. 204215.3.61 l 3.615.0.1 5.0.100 [facility] 00 [facility] 2013-05-09 2013-05-13 Outpatient 2.16.840. 2.16.840.1. 4 [id number] [facility] 05:45:00 13:00:00 1.389663. 790224.3.61 l 3.615.0.1 5.0.100 [facility] 00 [facility] 2013-05-09 2013-05-13 Outpatient 2.16.840. 2.16.840.1. 4 [id number] [facility] 05:45:00 13:00:00 1.873707. [id number] l 3.615.0.1 5.0.100 [facility] 2013-04-03 2013-04-04 ALVA nullFlavo [facility] [id number] Memoria 09:16:00 10:10:00 r Medical [address] [place] [address] 2013-04-03 2013-04-04 ALVA nullFlavo [facility] [id number] Memoria 09:16:00 10:10:00 r Medical [address] [place] [address] Results Test Description Test Time Test Comments Results Result Comments Source HGB HCT 2022-07-02 08:22:00 Test Item Value Reference Range Interpretation Comme nts HEMOGLOBIN (test code = HGB) 11.5 g/dL 10.1-13.8 N HEMATOCRIT (test code = HCT) 34.6 % 32.5-41.8 N AG HEPATITIS B [id number] 13:12:00 Test Item Value Reference Range Interpretation Comments AG HEPATITIS B SURFACE (test code NONREACTIVE NONREACTIVE = HBSAG) AB HEPATITIS C [id number] 13:12:00 Test Item Value Reference Range Interpretation Comments AB HEPATITIS C (test code = NONREACTIVE NONREACTIVE HCVAB) SIGNAL TO CUTOFF (test code = 0.14 <0.80 N CUTOFF) AB [id number] 13:12:00 Test Item Value Reference Range Interpretation Comments AB TREPONEMA (test code = TREPAB) NONREACTIVE NONREACTIVE AB HIV 1 13:12:00 Test Item Value Reference Range Interpretation Comments AB HIV 1 2 (test NONREACTIVE NONREACTIVE [facility] = [id number]) 4th Gen HIV Ag/Ab Combo Screen COMPREHENSIVE METABOLIC [id number] 12:23:00 Test Item Value Reference Range Interpretation Comments SODIUM (test code = 140 mEq/L 135-145 N NA) POTASSIUM (test code 3.9 mEq/L 3.5-5.0 N = K) CHLORIDE (test code 105 mEq/L 100-115 N = CL) CARBON DIOXIDE (test 23 mEq/L 22-31 N code = CO2) ANION GAP (test code 15.70 10-20 N = GAP) GLUCOSE (test code = 79 mg/dL 65-110 N GLU) BLOOD UREA NITROGEN 7 mg/dL 7-18 N (test code = BUN) GLOMERULAR 121 ml/min >60 N The Glomerular FILTRATION RATE Filtration R ate is a (test code = GFR) calculated parameterbased on serum Creatinin e, patient age and sex. GFR valuesless than 60 mL/min/1.73 squ are meters are tabitha cative ofChronic Kidne y Disease. Values less than 15 mL/min/1.73squa re meters indicate Kidney failure. The calculation for GFR is based on the CK D-EPI (2020) calculat ion. This formulais race indifferent and is the recommended for rufino for GFRby the N [facility] Found[facility] on for Adults.The GFR will not calculate i f the sex is unknown or if thepatient's ag e is <18 years. CREATININE (test 0.6 mg/dL 0.5-1.0 N code = CREAT) TOTAL PROTEIN (test 6.0 gm/dL 6.3-8.2 L code = PROT) ALBUMIN (test code = 2.9 gm/dL 3.4-4.8 L ALB) CALCIUM (test code = 8.7 mg/dL 8.4-10.2 N CA) BILIRUBIN TOTAL 0.5 mg/dL 0.2-1.0 N (test code = BILT) SGOT/AST (test code 22 units/L 15-37 N = AST) SGPT/ALT (test code 15 units/L 12-78 N = ALT) ALKALINE PHOSPHATASE 127 units/L 46-116 H TOTAL (test code = ALKP) CBC W/AUTO [id number] 11:48:00 Test Item Value Reference Range Interpretation Comments WHITE BLOOD CELL (test code = WBC) 9.4 K/mm3 6.5-12.3 N RED BLOOD CELL (test code = RBC) 3.88 M/mm3 3.51-4.69 N HEMOGLOBIN (test code = HGB) 12.0 g/dL 10.1-13.8 N HEMATOCRIT (test code = HCT) 35.9 % 32.5-41.8 N MEAN CELL VOLUME (test code = MCV) 92.5 fL 84.6-96.6 N MEAN CELL HGB (test code = MCH) 30.9 pg 27.3-33.9 N MEAN CELL HGB CONCETRATION (test 33.4 gm/dL 32.0-34.2 N code = MCHC) RED CELL DISTRIBUTION WIDTH (test 12.5 % 12.2-16.3 N code = RDW) PLATELET COUNT (test code = PLT) 192 K/mm3 134-363 N MEAN PLATELET VOLUME (test code = 11.4 fL 9.2-12.7 N MPV) NEUTROPHIL % (test code = NT%) 73.9 % 57.9-77.3 N LYMPHOCYTE % (test code = LY%) 19.0 % 14.5-29.7 N MONOCYTE % (test code = MO%) 4.9 % 3.6-10.2 N EOSINOPHIL % (test code = EO%) 1.2 % 0.0-3.0 N BASOPHIL % (test code = BA%) 0.3 % 0.1-0.9 N NEUTROPHIL # (test code = NT#) 6.9 K/mm3 LYMPHOCYTE # (test code = LY#) 1.8 K/mm3 MONOCYTE # (test code = MO#) 0.5 K/mm3 EOSINOPHIL # (test code = EO#) 0.11 K/mm3 BASOPHIL # (test code = BA#) 0.0 K/mm3 RBC MORPHOLOGY REQUIRED (test code NORMAL NORMAL = RBCM) PLATELET MORPHOLOGY REQUIRED (test NORMAL NORMAL code = PLTMR) HGB [id number] 08:39:00 Test Item Value Reference Range Interpretation Comments HEMOGLOBIN (test code = HGB) 10.2 g/dL 10.1-13.8 N HEMATOCRIT (test code = HCT) 31.6 % 32.5-41.8 L AG HEPATITIS B [id number] 14:39:00 Test Item Value Reference Range Interpretation Comments AG HEPATITIS B SURFACE (test code NONREACTIVE NONREACTIVE = HBSAG) AB HEPATITIS C [id number] 14:39:00 Test Item Value Reference Range Interpretation Comments AB HEPATITIS C (test code = NONREACTIVE NONREACTIVE HCVAB) SIGNAL TO CUTOFF (test code = <0.02 <0.80 N CUTOFF) AB [id number] 14:39:00 Test Item Value Reference Range Interpretation Comments AB TREPONEMA (test code = TREPAB) NONREACTIVE NONREACTIVE AB HIV 1 14:39:00 Test Item Value Reference Range Interpretation Comments AB HIV 1 2 (test NONREACTIVE NONREACTIVE Done [facility] = [id number]) 4th Gen HIV Ag/Ab Combo Screen AG HEPATITIS B [id number] 14:16:00 Test Item Value Reference Range Interpretation Comments AG HEPATITIS B SURFACE (test code NONREACTIVE NONREACTIVE = HBSAG) AB HEPATITIS C [id number] 14:16:00 Test Item Value Reference Range Interpretation Comments AB HEPATITIS C (test code = HCVAB) NONREACTIVE SIGNAL TO CUTOFF (test code = CUTOFF) <0.80 AB [id number] 14:16:00 Test Item Value Reference Range Interpretation Comments AB TREPONEMA (test code = TREPAB) NONREACTIVE NONREACTIVE AB HIV 1 14:16:00 Test Item Value Reference Range Interpretation Comments AB HIV 1 2 (test code = [id number]) NONREACTIVE CBC W/AUTO [id number] 13:10:00 Test Item Value Reference Range Interpretation Comments WHITE BLOOD CELL (test code = WBC) 12.0 K/mm3 6.5-12.3 N RED BLOOD CELL (test code = RBC) 4.04 M/mm3 3.51-4.69 N HEMOGLOBIN (test code = HGB) 12.3 g/dL 10.1-13.8 N HEMATOCRIT (test code = HCT) 37.5 % 32.5-41.8 N MEAN CELL VOLUME (test code = MCV) 92.8 fL 84.6-96.6 N MEAN CELL HGB (test code = MCH) 30.4 pg 27.3-33.9 N MEAN CELL HGB CONCETRATION (test 32.8 gm/dL 32.0-34.2 N code = MCHC) RED CELL DISTRIBUTION WIDTH (test 12.6 % 12.2-16.3 N code = RDW) PLATELET COUNT (test code = PLT) 212 K/mm3 134-363 N MEAN PLATELET VOLUME (test code = 11.4 fL 9.2-12.7 N MPV) NEUTROPHIL % (test code = NT%) 74.3 % 57.9-77.3 N LYMPHOCYTE % (test code = LY%) 17.8 % 14.5-29.7 N MONOCYTE % (test code = MO%) 5.4 % 3.6-10.2 N EOSINOPHIL % (test code = EO%) 0.9 % 0.0-3.0 N BASOPHIL % (test code = BA%) 0.4 % 0.1-0.9 N NEUTROPHIL # (test code = NT#) 8.9 K/mm3 LYMPHOCYTE # (test code = LY#) 2.1 K/mm3 MONOCYTE # (test code = MO#) 0.7 K/mm3 EOSINOPHIL # (test code = EO#) 0.11 K/mm3 BASOPHIL # (test code = BA#) 0.1 K/mm3 RBC MORPHOLOGY REQUIRED (test code NORMAL NORMAL = RBCM) PLATELET MORPHOLOGY REQUIRED (test NORMAL NORMAL code = PLTMR) [id number] 09:20:00 Test Item Value Reference Range Interpretation Comments MCH (test code = MCH) 29.4 pg 27.0-31.0 [id number] 09:20:00 Test Item Value Reference Range Interpretation Comments MCHC (test code = MCHC) 33.1 32.0-36.0 [id number] 09:20:00 Test Item Value Reference Range Interpretation Comments Hgb (test code = Hgb) 12.1 12.0-16.0 [facility] [id number] 09:20:00 Test Item Value Reference Range Interpretation Comments RBC (test code = RBC) 4.13 4.20-5.40 [facility] [id number] 09:20:00 Test Item Value Reference Range Interpretation Comments Hct (test code = Hct) 36.7 36.0-48.0 [facility] [id number] 09:20:00 Test Item Value Reference Range Interpretation Comments MCV (test code = MCV) 89.0 80.0-98.0 [facility] [id number] 09:20:00 Test Item Value Reference Range Interpretation Comments RDW (test code = RDW) 12.1 11.5-14.5 [facility] [id number] 09:20:00 Test Item Value Reference Range Interpretation Comments Platelet (test code = Platelet) 244 133-450 [facility] C[id number] 09:20:00 Test Item Value Reference Range Interpretation Comments MPV (test code = MPV) 8.8 7.4-10.4 [facility] [id number] 09:20:00 Test Item Value Reference Range Interpretation Comments WBC (test code = WBC) 16.2 3.7-10.4 [facility] [id number] 09:20:00 Test Item Value Reference Range Interpretation Comments Lymphocytes # (test code = Lymphocytes 1.9 1.0-5.5 #) [facility] [id number] 09:20:00 Test Item Value Reference Range Interpretation Comments Monocytes # (test code 1.2 See_Comment [Aut omated message] The = Monocytes #) system which generated this result tra nsmitted reference range : <=0.8. The reference r joan was not used to int erpret this result as normal/abnormal . [facility] C[id number] 09:20:00 Test Item Value Reference Range Interpretation Comments Monocytes (test code = Monocytes) 7.7 2.0-12.0 [facility] [id number] 09:20:00 Test Item Value Reference Range Interpretation Comments Basophils (test code = 0.1 See_Comment [Aut omated message] The Basophils) system which ge nerated this result tra nsmitted reference range : <=1.0. The reference r joan was not used to int erpret this result as normal/abnormal . [facility] [id number] 09:20:00 Test Item Value Reference Range Interpretation Comments Eosinophils (test code = 0.2 See_Comment [A utomated message] The Eosinophils) system which ge nerated this result tra nsmitted reference range : <=4.0. The reference r joan was not used to int erpret this result as normal/abnormal . [facility] CenterRzbehiaIHVXLBPERE6384-16-28 09:20:00 Test Item Value Reference Range Interpretation Comments Segs-Bands # (test code = Segs-Bands #) 13.0 1.5-8.1 [facility] CenterBhvmhltREEEBTYXCW0582-78-69 09:20:00 Test Item Value Reference Range Interpretation Comments Lymphocytes (test code = Lymphocytes) 11.6 20.0-40.0 [facility] CenterEyczckfDBXZEPLJSO8149-89-59 09:20:00 Test Item Value Reference Range Interpretation Comments Segs (test code = Segs) 80.4 45.0-75.0 [facility] CenterWxagbanGDASZERNZM4713-43-48 09:20:00 Test Item Value Reference Range Interpretation Comments MCH (test code = MCH) 29.4 pg 27.0-31.0 [facility] CenterXjhdqrcAIZACBCPFP2867-18-54 09:20:00 Test Item Value Reference Range Interpretation Comments MCHC (test code = MCHC) 33.1 32.0-36.0 [facility] CenterMffbmspNIHLIPVGVM4159-77-71 09:20:00 Test Item Value Reference Range Interpretation Comments Hgb (test code = Hgb) 12.1 12.0-16.0 [facility] CenterWotdokxEMVSQRJNVM0095-13-90 09:20:00 Test Item Value Reference Range Interpretation Comments RBC (test code = RBC) 4.13 4.20-5.40 [facility] CenterAkehzwuCHEXWNVOYW4312-51-98 09:20:00 Test Item Value Reference Range Interpretation Comments Hct (test code = Hct) 36.7 36.0-48.0 [facility] CenterXhypcszCQWJMBAUJG7282-13-51 09:20:00 Test Item Value Reference Range Interpretation Comments MCV (test code = MCV) 89.0 80.0-98.0 [facility] CenterErkhfjbTKBZQFEHKY7548-49-30 09:20:00 Test Item Value Reference Range Interpretation Comments RDW (test code = RDW) 12.1 11.5-14.5 [facility] CenterZyhjhlaOIQTEDSIHU3054-11-90 09:20:00 Test Item Value Reference Range Interpretation Comments Platelet (test code = Platelet) 244 133-450 [facility] CenterKhaguqbOCZAXMUZWR1554-11-92 09:20:00 Test Item Value Reference Range Interpretation Comments MPV (test code = MPV) 8.8 7.4-10.4 [facility] CenterUohcfmlOAAIPJCEAI4031-47-84 09:20:00 Test Item Value Reference Range Interpretation Comments WBC (test code = WBC) 16.2 3.7-10.4 [facility] CenterSiegogdEKFWELMDYG0658-53-06 09:20:00 Test Item Value Reference Range Interpretation Comments Lymphocytes # (test code = Lymphocytes 1.9 1.0-5.5 #) [facility] CenterGhkwqxoVXYPQGYAHL9962-63-62 09:20:00 Test Item Value Reference Range Interpretation Comments Monocytes # (test code 1.2 See_Comment [Aut omated message] The = Monocytes #) system which generated this result tra nsmitted reference range : <=0.8. The reference r joan was not used to int erpret this result as normal/abnormal . [facility] CenterXlpkqxhHCAHASXDZB4631-09-31 09:20:00 Test Item Value Reference Range Interpretation Comments Monocytes (test code = Monocytes) 7.7 2.0-12.0 [facility] CenterQlzjegiATXOHHEJTU5721-78-68 09:20:00 Test Item Value Reference Range Interpretation Comments Basophils (test code = 0.1 See_Comment [Aut omated message] The Basophils) system which ge nerated this result tra nsmitted reference range : <=1.0. The reference r joan was not used to int erpret this result as normal/abnormal . [facility] CenterYyfkuvcQMSFRQFTQA8361-03-79 09:20:00 Test Item Value Reference Range Interpretation Comments Eosinophils (test code = 0.2 See_Comment [A utomated message] The Eosinophils) system which ge nerated this result tra nsmitted reference range : <=4.0. The reference r joan was not used to int erpret this result as normal/abnormal . [facility] CenterNeoqyxvTWQDWXYGPQ7399-21-83 09:20:00 Test Item Value Reference Range Interpretation Comments Segs-Bands # (test code = Segs-Bands #) 13.0 1.5-8.1 [facility] CenterPmitvogAWRHDQOTEQ2591-84-93 09:20:00 Test Item Value Reference Range Interpretation Comments Lymphocytes (test code = Lymphocytes) 11.6 20.0-40.0 [facility] CenterAxiebfmPCITWMYKAQ5824-86-71 09:20:00 Test Item Value Reference Range Interpretation Comments Segs (test code = Segs) 80.4 45.0-75.0 [facility] CenterClarkjuOAWALBHNUA6698-61-67 15:07:00 Test Item Value Reference Range Interpretation Comments Hct (test code = Hct) 36.7 36.0-48.0 [facility] CenterEnyivtdLMYSWCGRLA6997-34-52 15:07:00 Test Item Value Reference Range Interpretation Comments MCHC (test code = MCHC) 33.1 32.0-36.0 [facility] CenterTqidhrdHBKTKNQRUH4206-56-35 15:07:00 Test Item Value Reference Range Interpretation Comments RDW (test code = RDW) 12.4 11.5-14.5 [facility] CenterKpzrhgcTLYOAXSCQE0406-74-64 15:07:00 Test Item Value Reference Range Interpretation Comments RBC (test code = RBC) 4.12 4.20-5.40 [facility] CenterEuarlftUNJIGPIARZ0506-11-83 15:07:00 Test Item Value Reference Range Interpretation Comments WBC (test code = WBC) 11.2 3.7-10.4 [facility] CenterCbtfyvwXSETWSVRUX3047-15-89 15:07:00 Test Item Value Reference Range Interpretation Comments Hgb (test code = Hgb) 12.1 12.0-16.0 [facility] CenterLmutrurBPHSUHECRG1895-53-57 15:07:00 Test Item Value Reference Range Interpretation Comments Platelet (test code = Platelet) 188 133-450 [facility] CenterLlchajrTJBKKACFXX3142-55-39 15:07:00 Test Item Value Reference Range Interpretation Comments MPV (test code = MPV) 8.8 7.4-10.4 [facility] CenterRmvixgzKIHLMTCSBH5920-81-80 15:07:00 Test Item Value Reference Range Interpretation Comments Eosinophils (test code = 0.7 See_Comment [A utomated message] The Eosinophils) system which ge nerated this result tra nsmitted reference range : <=4.0. The reference r joan was not used to int erpret this result as normal/abnormal . [facility] CenterOpnskjuJGSHOMHQYZ7217-56-70 15:07:00 Test Item Value Reference Range Interpretation Comments Monocytes # (test code 0.3 See_Comment [Aut omated message] The = Monocytes #) system which generated this result tra nsmitted reference range : <=0.8. The reference r joan was not used to int erpret this result as normal/abnormal . [facility] CenterRnwpwwfDPYFEVVHPG4049-28-13 15:07:00 Test Item Value Reference Range Interpretation Comments Lymphocytes # (test code = Lymphocytes 1.9 1.0-5.5 #) [facility] CenterNqaopniJIIXKRFVYY7935-37-30 15:07:00 Test Item Value Reference Range Interpretation Comments Basophils (test code = 0.4 See_Comment [Aut omated message] The Basophils) system which ge nerated this result tra nsmitted reference range : <=1.0. The reference r joan was not used to int erpret this result as normal/abnormal . [facility] CenterZjkifofUXZONMTEMN6705-65-64 15:07:00 Test Item Value Reference Range Interpretation Comments Segs-Bands # (test code = Segs-Bands #) 8.9 1.5-8.1 [facility] CenterWnvcjupHQKIIBWCKU7004-36-28 15:07:00 Test Item Value Reference Range Interpretation Comments Monocytes (test code = Monocytes) 3.1 2.0-12.0 [facility] CenterVemrppjSSEQJHGBBE6094-65-20 15:07:00 Test Item Value Reference Range Interpretation Comments Segs (test code = Segs) 79.1 45.0-75.0 [facility] CenterLixcwkbHMPABCUBSF7737-92-56 15:07:00 Test Item Value Reference Range Interpretation Comments Lymphocytes (test code = Lymphocytes) 16.7 20.0-40.0 [facility] CenterHwcaihaLOQATOLJGR9838-87-84 15:07:00 Test Item Value Reference Range Interpretation Comments Eosinophils # (test code 0.1 See_Comment [A utomated message] The = Eosinophils #) system whic h generated this result tra nsmitted reference range : <=0.5. The reference r joan was not used to int erpret this result as normal/abnormal . [facility] CenterKbunipuWGFJJSQAEJ2291-73-99 15:07:00 Test Item Value Reference Range Interpretation Comments MCV (test code = MCV) 89.2 80.0-98.0 [facility] CenterWsfqmslJJQRQKBLDQ8314-71-45 15:07:00 Test Item Value Reference Range Interpretation Comments MCH (test code = MCH) 29.5 pg 27.0-31.0 [facility] CenterRhauoivOJBHUJNZYT7792-18-38 15:07:00 Test Item Value Reference Range Interpretation Comments Hct (test code = Hct) 36.7 36.0-48.0 [facility] CenterEgzickzWZCCZABRQN7062-11-88 15:07:00 Test Item Value Reference Range Interpretation Comments MCHC (test code = MCHC) 33.1 32.0-36.0 [facility] CenterNvuyqgdQPTSSBQMKE9662-25-54 15:07:00 Test Item Value Reference Range Interpretation Comments RDW (test code = RDW) 12.4 11.5-14.5 [facility] CenterRujrzdpRAWMKBIDDO9259-82-14 15:07:00 Test Item Value Reference Range Interpretation Comments RBC (test code = RBC) 4.12 4.20-5.40 [facility] CenterRerrdtoZLMAVJYOEH6775-17-17 15:07:00 Test Item Value Reference Range Interpretation Comments WBC (test code = WBC) 11.2 3.7-10.4 [facility] CenterYnwnuvaAOYDMKJFLA8130-96-03 15:07:00 Test Item Value Reference Range Interpretation Comments Hgb (test code = Hgb) 12.1 12.0-16.0 [facility] CenterHirmzqtSUEMNJDNJQ3301-64-52 15:07:00 Test Item Value Reference Range Interpretation Comments Platelet (test code = Platelet) 188 133-450 [facility] CenterWzklsntYDLFWEZWDG7764-78-98 15:07:00 Test Item Value Reference Range Interpretation Comments MPV (test code = MPV) 8.8 7.4-10.4 [facility] CenterHjazorgSAYLHHNFRN8732-58-78 15:07:00 Test Item Value Reference Range Interpretation Comments Eosinophils (test code = 0.7 See_Comment [A utomated message] The Eosinophils) system which ge nerated this result tra nsmitted reference range : <=4.0. The reference r joan was not used to int erpret this result as normal/abnormal . [facility] CenterZrickegPFOGFKJTNA6512-03-17 15:07:00 Test Item Value Reference Range Interpretation Comments Monocytes # (test code 0.3 See_Comment [Aut omated message] The = Monocytes #) system which generated this result tra nsmitted reference range : <=0.8. The reference r joan was not used to int erpret this result as normal/abnormal . [facility] CenterTmdtxsuGIGPKGRAAU2780-65-41 15:07:00 Test Item Value Reference Range Interpretation Comments Lymphocytes # (test code = Lymphocytes 1.9 1.0-5.5 #) [facility] CenterHyvzvjuMHDSCLZJDM8695-28-56 15:07:00 Test Item Value Reference Range Interpretation Comments Basophils (test code = 0.4 See_Comment [Aut omated message] The Basophils) system which ge nerated this result tra nsmitted reference range : <=1.0. The reference r joan was not used to int erpret this result as normal/abnormal . [facility] CenterOltipiaZBCDRLSPJS7916-93-94 15:07:00 Test Item Value Reference Range Interpretation Comments Segs-Bands # (test code = Segs-Bands #) 8.9 1.5-8.1 [facility] CenterXjotcerJCZZEYMKAA9660-45-79 15:07:00 Test Item Value Reference Range Interpretation Comments Monocytes (test code = Monocytes) 3.1 2.0-12.0 [facility] CenterViaetvqZWJEXAGUYK7251-97-31 15:07:00 Test Item Value Reference Range Interpretation Comments Segs (test code = Segs) 79.1 45.0-75.0 [facility] CenterAwlzmkhEEWDSZYWLU6058-22-18 15:07:00 Test Item Value Reference Range Interpretation Comments Lymphocytes (test code = Lymphocytes) 16.7 20.0-40.0 [facility] CenterPwzuwknCXYTABRNRP5863-43-13 15:07:00 Test Item Value Reference Range Interpretation Comments Eosinophils # (test code 0.1 See_Comment [A utomated message] The = Eosinophils #) system whic h generated this result tra nsmitted reference range : <=0.5. The reference r joan was not used to int erpret this result as normal/abnormal . [facility] CenterPcpsjyeKJJTDGHWVT6837-35-42 15:07:00 Test Item Value Reference Range Interpretation Comments MCV (test code = MCV) 89.2 80.0-98.0 [facility] CenterCmhytxeUVTKCQLYWB8469-04-11 15:07:00 Test Item Value Reference Range Interpretation Comments MCH (test code = MCH) 29.5 pg 27.0-31.0 [facility] SQRZTOK5794-69-46 12:06:00 Test Item Value Reference Range Interpretation Comments Antibody Scrn (test Negative (10/29/14 7:06 code = Antibody Scrn) AM) [facility] RETKAQB3380-81-84 12:06:00 Test Item Value Reference Range Interpretation Comments ABO/Rh (test code = ABO/Rh) A POS [facility] [employer] OSNNDFV5478-03-95 12:06:00 Test Item Value Reference Range Interpretation Comments Antibody Scrn (test Negative (10/29/14 7:06 code = Antibody Scrn) AM) [facility] LZIOVUR6910-68-11 12:06:00 Test Item Value Reference Range Interpretation Comments ABO/Rh (test code = ABO/Rh) A POS [facility] [employer] YPTPX5184-72-50 16:50:00 Test Item Value Reference Range Interpretation Comments eGFR (test code = eGFR) 121 [facility] AQBZN0077-11-43 16:50:00 Test Item Value Reference Range Interpretation Comments Chloride Lvl (test code = Chloride Lvl) 105 95-109 [facility] KQPZD9686-68-04 16:50:00 Test Item Value Reference Range Interpretation Comments Potassium Lvl (test code = Potassium 4.3 3.5-5.1 Lvl) [facility] DZTLJ4641-30-20 16:50:00 Test Item Value Reference Range Interpretation Comments Sodium Lvl (test code = Sodium Lvl) 143 135-145 [facility] BYRJE3445-62-83 16:50:00 Test Item Value Reference Range Interpretation Comments Creatinine Lvl (test code = Creatinine 0.7 0.5-1.4 Lvl) [facility] BJUOM3906-58-80 16:50:00 Test Item Value Reference Range Interpretation Comments CO2 (test code = CO2) 30 24-32 [facility] GQEXS0109-57-50 16:50:00 Test Item Value Reference Range Interpretation Comments Calcium Lvl (test code = Calcium Lvl) 9.3 8.5-10.5 [facility] GHGRD5126-28-47 16:50:00 Test Item Value Reference Range Interpretation Comments BUN (test code = BUN) 10 7-22 [facility] QZLYH6726-88-91 16:50:00 Test Item Value Reference Range Interpretation Comments Glucose Lvl (test code = Glucose Lvl) 84 70-99 [facility]2015-03-27 16:50:00 Test Item Value Reference Range Interpretation Comments AGAP (test code = AGAP) 12.3 10.0-20.0 [facility] CenterJlcirmeGLEJRJHDQA3224-58-52 16:50:00 Test Item Value Reference Range Interpretation Comments Monocytes (test code = Monocytes) 4.7 2.0-12.0 [facility] CenterNmjhkxiTXWHMOXQXK5186-07-19 16:50:00 Test Item Value Reference Range Interpretation Comments Eosinophils (test code = 1.6 See_Comment [A utomated message] The Eosinophils) system which ge nerated this result tra nsmitted reference range : <=4.0. The reference r joan was not used to int erpret this result as normal/abnormal . [facility] CenterCjvwqbqWQEATZDEKT1989-18-79 16:50:00 Test Item Value Reference Range Interpretation Comments Basophils (test code = 0.6 See_Comment [Aut omated message] The Basophils) system which ge nerated this result tra nsmitted reference range : <=1.0. The reference r joan was not used to int erpret this result as normal/abnormal . [facility] CenterRvpnzynKVRZJEJUYY7572-31-01 16:50:00 Test Item Value Reference Range Interpretation Comments Lymphocytes (test code = Lymphocytes) 28.0 20.0-40.0 [facility] CenterNdqyyvgGCTMYWFVPV2741-63-94 16:50:00 Test Item Value Reference Range Interpretation Comments Lymphocytes # (test code = Lymphocytes 2.1 1.0-5.5 #) [facility] CenterDtlemvySDMCHTOWZL4763-84-22 16:50:00 Test Item Value Reference Range Interpretation Comments Monocytes # (test code 0.4 See_Comment [Aut omated message] The = Monocytes #) system which generated this result tra nsmitted reference range : <=0.8. The reference r joan was not used to int erpret this result as normal/abnormal . [facility] CenterOgbxbrjFJJBSQVFGC3978-77-78 16:50:00 Test Item Value Reference Range Interpretation Comments Segs-Bands # (test code = Segs-Bands #) 5.0 1.5-8.1 [facility] CenterWmuqskeEQWDAXPDXC9842-99-86 16:50:00 Test Item Value Reference Range Interpretation Comments Eosinophils # (test code 0.1 See_Comment [A utomated message] The = Eosinophils #) system [employer] h generated this result tra nsmitted reference range : <=0.5. The reference r joan was not used to int erpret this result as normal/abnormal . [facility] CenterXqufkhyWFEBLVQQGJ6646-35-60 16:50:00 Test Item Value Reference Range Interpretation Comments Segs (test code = Segs) 65.1 45.0-75.0 [facility] CenterIzyenrsRNHXJYBRYR9320-72-26 16:50:00 Test Item Value Reference Range Interpretation Comments WBC (test code = WBC) 7.6 3.7-10.4 [facility] CenterWpwbdbsXLVQAUFJUL9186-35-07 16:50:00 Test Item Value Reference Range Interpretation Comments MCV (test code = MCV) 89.0 80.0-98.0 [facility] CenterWaaotxsWETKUCJBLB8926-04-61 16:50:00 Test Item Value Reference Range Interpretation Comments MCHC (test code = MCHC) 33.2 32.0-36.0 [facility] CenterEuvqnrtCTGIXAEMXD7426-28-04 16:50:00 Test Item Value Reference Range Interpretation Comments MCH (test code = MCH) 29.6 pg 27.0-31.0 [facility] CenterFodzmebNIFPJNBGKA8267-99-54 16:50:00 Test Item Value Reference Range Interpretation Comments RBC (test code = RBC) 4.94 4.20-5.40 [facility] CenterAmumunrCAWKMAZTQT6671-13-48 16:50:00 Test Item Value Reference Range Interpretation Comments Hct (test code = Hct) 43.9 36.0-48.0 [facility] CenterEveuiehOBGEXJWTYS6961-23-89 16:50:00 Test Item Value Reference Range Interpretation Comments Hgb (test code = Hgb) 14.6 12.0-16.0 [facility] CenterNakhjpiUWDHWPVSTG5535-86-44 16:50:00 Test Item Value Reference Range Interpretation Comments Platelet (test code = Platelet) 276 133-450 [facility] CenterTgldsyrRHIMTLECGZ9666-75-18 16:50:00 Test Item Value Reference Range Interpretation Comments RDW (test code = RDW) 12.3 11.5-14.5 [facility] CenterSqygrooOQNATBYGMX1764-75-21 16:50:00 Test Item Value Reference Range Interpretation Comments MPV (test code = MPV) 8.9 7.4-10.4 [facility]2015-03-27 16:50:00 Test Item Value Reference Range Interpretation Comments eGFR (test code = eGFR) 121 [facility]2015-03-27 16:50:00 Test Item Value Reference Range Interpretation Comments Chloride Lvl (test code = Chloride Lvl) 105 95-109 [place] 029065-03-27 16:50:00 Test Item Value Reference Range Interpretation Comments Potassium Lvl (test code = Potassium 4.3 3.5-5.1 Lvl) [facility]2015-03-27 16:50:00 Test Item Value Reference Range Interpretation Comments Sodium Lvl (test code = Sodium Lvl) 143 135-145 [place] 029065-03-27 16:50:00 Test Item Value Reference Range Interpretation Comments Creatinine Lvl (test code = Creatinine 0.7 0.5-1.4 Lvl) [facility]2015-03-27 16:50:00 Test Item Value Reference Range Interpretation Comments CO2 (test code = CO2) 30 24-32 [place] 029065-03-27 16:50:00 Test Item Value Reference Range Interpretation Comments Calcium Lvl (test code = Calcium Lvl) 9.3 8.5-10.5 [facility]2015-03-27 16:50:00 Test Item Value Reference Range Interpretation Comments BUN (test code = BUN) 10 7-22 [facility]2015-03-27 16:50:00 Test Item Value Reference Range Interpretation Comments Glucose Lvl (test code = Glucose Lvl) 84 70-99 [facility]2015-03-27 16:50:00 Test Item Value Reference Range Interpretation Comments AGAP (test code = AGAP) 12.3 10.0-20.0 [facility] CenterXvbekehASAMHKTPHV6996-98-77 16:50:00 Test Item Value Reference Range Interpretation Comments Monocytes (test code = Monocytes) 4.7 2.0-12.0 [facility] CenterLfgzrmtBDGAEPNDWY3824-78-68 16:50:00 Test Item Value Reference Range Interpretation Comments Eosinophils (test code = 1.6 See_Comment [A utomated message] The Eosinophils) system which ge nerated this result tra nsmitted reference range : <=4.0. The reference r joan was not used to int erpret this result as normal/abnormal . [facility] CenterWritdafIVJTKPAGJR4503-70-21 16:50:00 Test Item Value Reference Range Interpretation Comments Basophils (test code = 0.6 See_Comment [Aut omated message] The Basophils) system which ge nerated this result tra nsmitted reference range : <=1.0. The reference r joan was not used to int erpret this result as normal/abnormal . [facility] CenterFctextdRXIYYEURRS9240-69-74 16:50:00 Test Item Value Reference Range Interpretation Comments Lymphocytes (test code = Lymphocytes) 28.0 20.0-40.0 [facility] CenterMwisotuPJOLEHBZPN1060-96-84 16:50:00 Test Item Value Reference Range Interpretation Comments Lymphocytes # (test code = Lymphocytes 2.1 1.0-5.5 #) [facility] CenterIisbmnqLNBLBTWSWW5150-88-93 16:50:00 Test Item Value Reference Range Interpretation Comments Monocytes # (test code 0.4 See_Comment [Aut omated message] The = Monocytes #) system which generated this result tra nsmitted reference range : <=0.8. The reference r joan was not used to int erpret this result as normal/abnormal . [facility] CenterOhonluwYNWDCBBSOB4927-71-93 16:50:00 Test Item Value Reference Range Interpretation Comments Segs-Bands # (test code = Segs-Bands #) 5.0 1.5-8.1 [facility] CenterIpnlnstGZTFTXBVHH6353-99-19 16:50:00 Test Item Value Reference Range Interpretation Comments Eosinophils # (test code 0.1 See_Comment [A utomated message] The = Eosinophils #) system whic h generated this result tra nsmitted reference range : <=0.5. The reference r joan was not used to int erpret this result as normal/abnormal . [facility] CenterRalxekuPWIDTXQUBE3667-94-07 16:50:00 Test Item Value Reference Range Interpretation Comments Segs (test code = Segs) 65.1 45.0-75.0 [facility] CenterRjzpwbuXEFDNXHXQG6019-68-09 16:50:00 Test Item Value Reference Range Interpretation Comments WBC (test code = WBC) 7.6 3.7-10.4 [facility] CenterYmyydfkVKPBZXIVGF1763-00-01 16:50:00 Test Item Value Reference Range Interpretation Comments MCV (test code = MCV) 89.0 80.0-98.0 [facility] CenterTdfasqsSXTFLXMDZX6526-77-49 16:50:00 Test Item Value Reference Range Interpretation Comments MCHC (test code = MCHC) 33.2 32.0-36.0 [facility] CenterZibxcxoGFDHZGLSXR2873-67-07 16:50:00 Test Item Value Reference Range Interpretation Comments MCH (test code = MCH) 29.6 pg 27.0-31.0 [facility] CenterAijwojjKCDRBSLOHL7285-60-66 16:50:00 Test Item Value Reference Range Interpretation Comments RBC (test code = RBC) 4.94 4.20-5.40 [facility] CenterKuexixlJASQIBSZPC2731-69-08 16:50:00 Test Item Value Reference Range Interpretation Comments Hct (test code = Hct) 43.9 36.0-48.0 [facility] CenterRkpfdjdIWJSECIKBE7556-55-37 16:50:00 Test Item Value Reference Range Interpretation Comments Hgb (test code = Hgb) 14.6 12.0-16.0 [facility] CenterRosvdtjQQFSJUVUMR3362-76-81 16:50:00 Test Item Value Reference Range Interpretation Comments Platelet (test code = Platelet) 276 133-450 [facility] CenterLltunzrBEKETLBYKC3822-20-23 16:50:00 Test Item Value Reference Range Interpretation Comments RDW (test code = RDW) 12.3 11.5-14.5 [facility] CenterYnswttcMLBRPBPSWC2520-14-28 16:50:00 Test Item Value Reference Range Interpretation Comments MPV (test code = MPV) 8.9 7.4-10.4 [facility]2014-12-15 15:59:00 Test Item Value Reference Range Interpretation Comments Protein CSF (test code = Protein CSF) 40 15-45 [facility]2014-12-15 15:59:00 Test Item Value Reference Range Interpretation Comments Monocyte CSF (test code = Monocyte CSF) 7 15-45 [facility]2014-12-15 15:59:00 Test Item Value Reference Range Interpretation Comments Lymph CSF (test code = Lymph CSF) 55 40-80 [facility]2014-12-15 15:59:00 Test Item Value Reference Range Interpretation Comments Segs CSF (test code = 38 See_Comment [Auto mated message] The Segs CSF) system which ge nerated this result transmit richard reference range : <=6. The reference range was not used to interpr et this result as robbie l/abnormal. [facility]TAJTFQ1103[facility] 15:59:00 Test Item Value Reference Range Interpretation Comments WBC CSF (test code = 20 See_Comment [Autom ated message] The WBC CSF) system which ge nerated this result transmit richard reference range : <=53. The reference range was not used to interpr et this result as robbie l/abnormal. [facility] RSBIPH5445-06-69 15:59:00 Test Item Value Reference Range Interpretation Comments RBC CSF (test code = 91996 See_Comment [Autom ated message] The RBC CSF) system which ge nerated this result transmit richard reference range : <=03. The reference range was not used to interpr et this result as robbie l/abnormal. [facility] NIAHQI2591-98-35 15:59:00 Test Item Value Reference Range Interpretation Comments Color CSF (test code = Light Red Color CSF) *ABN*(07/15/14 9:59 AM) [facility]2014-12-15 15:59:00 Test Item Value Reference Range Interpretation Comments Tube Num CSF (test xxxxxxx (07/15/14 9:59 code = Tube Num CSF) AM) [facility]2014-12-15 15:59:00 Test Item Value Reference Range Interpretation Comments Clarity CSF (test code Slight *ABN*(07/15/14 = Clarity CSF) 9:59 AM) [facility]2014-12-15 15:59:00 Test Item Value Reference Range Interpretation Comments Supernat CSF (test Colorless (07/15/14 code = Supernat CSF) 9:59 AM) [facility]2014-12-15 15:59:00 Test Item Value Reference Range Interpretation Comments Glucose CSF (test code = Glucose CSF) 59 45-80 [facility] DWEJLO5717-85-83 15:59:00 Test Item Value Reference Range Interpretation Comments Color CSF (test code = Light Red Color CSF) *ABN*(07/15/14 9:59 AM) [facility]2014-12-15 15:59:00 Test Item Value Reference Range Interpretation Comments Tube Num CSF (test xxxxxxx (12/15/14 9:59 code = Tube Num CSF) AM) [facility] AUMBTN7272-89-13 15:59:00 Test Item Value Reference Range Interpretation Comments Clarity CSF (test code Slight *ABN*(07/15/14 = Clarity CSF) 9:59 AM) [facility] NCFNWS7029-20-86 15:59:00 Test Item Value Reference Range Interpretation Comments Supernat CSF (test Colorless (07/15/14 code = Supernat CSF) 9:59 AM) [facility] [id number] 15:59:00 Test Item Value Reference Range Interpretation Comments Glucose CSF (test code = Glucose CSF) 59 45-80 [facility] [id number] 15:59:00 Test Item Value Reference Range Interpretation Comments Protein CSF (test code = Protein CSF) 40 15-45 [facility] [id number] 15:59:00 Test Item Value Reference Range Interpretation Comments Monocyte CSF (test code = Monocyte CSF) 7 15-45 [facility]2014-12-15 15:59:00 Test Item Value Reference Range Interpretation Comments Lymph CSF (test code = Lymph CSF) 55 40-80 [facility] [id number] 15:59:00 Test Item Value Reference Range Interpretation Comments Segs CSF (test code = 38 See_Comment [Auto mated message] The Segs CSF) system which ge nerated this result transmit richard reference range : <=6. The reference range was not used to interpr et this result as robbie l/abnormal. [facility]2014-12-15 15:59:00 Test Item Value Reference Range Interpretation Comments WBC CSF (test code = 20 See_Comment [Autom ated message] The WBC CSF) system which ge nerated this result transmit richard reference range : <=53. The reference range was not used to interpr et this result as robbie l/abnormal. [facility]2014-12-15 15:59:00 Test Item Value Reference Range Interpretation Comments RBC CSF (test code = 38338 See_Comment [Autom ated message] The RBC CSF) system which ge nerated this result transmit richard reference range : <=03. The reference range was not used to interpr et this result as robbie l/abnormal. [facility] BANK [id number] 12:29:00 Test Item Value Reference Range Interpretation Comments Antibody Scrn (test Negative (07/15/14 code = Antibody Scrn) 6:29 AM) [employer] [id number] 12:29:00 Test Item Value Reference Range Interpretation Comments ABO/Rh (test code = ABO/Rh) A POS [facility] BANK [id number] 12:29:00 Test Item Value Reference Range Interpretation Comments Antibody Scrn (test Negative (07/15/14 code = Antibody Scrn) 6:29 AM) [employer] [id number] 12:29:00 Test Item Value Reference Range Interpretation Comments ABO/Rh (test code = ABO/Rh) A POS [employer] [id number] 12:03:00 Test Item Value Reference Range Interpretation Comments U Preg (test code = U Negative (07/15/14 6:03 Preg) AM) [employer]2014-12-15 12:03:00 Test Item Value Reference Range Interpretation Comments U Preg (test code = U Negative (07/15/14 6:03 Preg) AM) [employer] [id number] 20:00:00 Test Item Value Reference Range Interpretation Comments eGFR (test code = eGFR) 121 [employer]2014-12-11 20:00:00 Test Item Value Reference Range Interpretation Comments Calcium Lvl (test code = Calcium Lvl) 10.0 8.5-10.[address] [employer] [id number] 20:00:00 Test Item Value Reference Range Interpretation Comments AST (test code = AST) 8 See_Comment [Auto mated message] The system which ge nerated this result transmit richard reference range : <=37. The reference range was not used to interpr et this result as robbie l/abnormal. [employer]2014-12-11 20:00:00 Test Item Value Reference Range Interpretation Comments ALT (test code = ALT) 13 See_Comment [Auto mated message] The system which ge nerated this result transmit richard reference range : <=65. The reference range was not used to interpr et this result as robbie l/abnormal. [employer]2014-12-11 20:00:00 Test Item Value Reference Range Interpretation Comments Albumin Lvl (test code = Albumin Lvl) 4.7 3.5-5.0 [facility]2014-12-11 20:00:00 Test Item Value Reference Range Interpretation Comments Total Protein (test code = Total 7.9 6.4-8.4 Protein) [facility]2014-12-11 20:00:00 Test Item Value Reference Range Interpretation Comments Bili Total (test code = Bili Total) 0.7 0.2-1.3 [facility]2014-12-11 20:00:00 Test Item Value Reference Range Interpretation Comments Alk Phos (test code = Alk Phos) 59 39-136 [facility]2014-12-11 20:00:00 Test Item Value Reference Range Interpretation Comments CO2 (test code = CO2) 30 24-32 [facility]2014-12-11 20:00:00 Test Item Value Reference Range Interpretation Comments Sodium Lvl (test code = Sodium Lvl) 142 135-145 [facility]2014-12-11 20:00:00 Test Item Value Reference Range Interpretation Comments Potassium Lvl (test code = Potassium 4.3 3.5-5.1 Lvl) [facility]2014-12-11 20:00:00 Test Item Value Reference Range Interpretation Comments Chloride Lvl (test code = Chloride Lvl) 103 95-109 [facility]2014-12-11 20:00:00 Test Item Value Reference Range Interpretation Comments Glucose Lvl (test code = Glucose Lvl) 78 70-99 [facility]2014-12-11 20:00:00 Test Item Value Reference Range Interpretation Comments BUN (test code = BUN) 10 7-22 [facility]2014-12-11 20:00:00 Test Item Value Reference Range Interpretation Comments Creatinine Lvl (test code = Creatinine 0.7 0.5-1.4 Lvl) [facility]2014-12-11 20:00:00 Test Item Value Reference Range Interpretation Comments Globulin (test code = Globulin) 3.2 2.0-4.0 [facility]2014-12-11 20:00:00 Test Item Value Reference Range Interpretation Comments B/C Ratio (test code = B/C Ratio) 14 6-25 [facility]2014-12-11 20:00:00 Test Item Value Reference Range Interpretation Comments AGAP (test code = AGAP) 13.3 10.0-20.0 [facility]2014-12-11 20:00:00 Test Item Value Reference Range Interpretation Comments A/G Ratio (test code = A/G Ratio) 1.5 0.7-1.6 [facility]DPQOXYBTAC2289-[facility]-60 20:00:00 Test Item Value Reference Range Interpretation Comments INR (test code = INR) 0.96 0.85-1.17 [facility] CenterIxwngxxFGYFFUJHEQ4132-35-49 20:00:00 Test Item Value Reference Range Interpretation Comments PT (test code = PT) 12.8 s 12.0-14.7 [facility] CenterFrpsggfVQIXEMGQOM3735-79-69 20:00:00 Test Item Value Reference Range Interpretation Comments PTT (test code = PTT) 30.3 s 22.9-35.8 [facility] CenterAfskqzhEUZVKSZYEL8860-11-97 20:00:00 Test Item Value Reference Range Interpretation Comments Hgb (test code = Hgb) 14.7 12.0-16.0 [facility] CenterOxajbcwANCZIQIQMX4039-31-11 20:00:00 Test Item Value Reference Range Interpretation Comments WBC (test code = WBC) 7.6 3.7-10.4 [facility] CenterCgrchglOJGOFQAKJE7105-62-89 20:00:00 Test Item Value Reference Range Interpretation Comments RBC (test code = RBC) 4.96 4.20-5.40 [facility] CenterWxthummBIINCALDTR8269-19-72 20:00:00 Test Item Value Reference Range Interpretation Comments MCV (test code = MCV) 90.2 80.0-98.0 [facility] CenterFhiazetNMMMYGDSNE3618-73-89 20:00:00 Test Item Value Reference Range Interpretation Comments MCH (test code = MCH) 29.6 pg 27.0-31.0 [facility] CenterZjqynjeXDHJMSXSPS2019-65-83 20:00:00 Test Item Value Reference Range Interpretation Comments MCHC (test code = MCHC) 32.8 32.0-36.0 [facility] CenterTisikmmAPAJRKVRBN6047-18-31 20:00:00 Test Item Value Reference Range Interpretation Comments RDW (test code = RDW) 12.7 11.5-14.5 [facility] CenterIxbawreASWBWULPED6318-86-68 20:00:00 Test Item Value Reference Range Interpretation Comments Hct (test code = Hct) 44.7 36.0-48.0 [facility] CenterAiqwqeqGMHKLVDSQM6067-59-94 20:00:00 Test Item Value Reference Range Interpretation Comments Platelet (test code = Platelet) 308 133-450 [facility] CenterBeolyihHFXHUVSBPO5392-13-92 20:00:00 Test Item Value Reference Range Interpretation Comments MPV (test code = MPV) 8.7 7.4-10.4 [facility] CenterYviluwyXYBVDQTZNZ0366-28-75 20:00:00 Test Item Value Reference Range Interpretation Comments Segs (test code = Segs) 67.8 45.0-75.0 [facility] CenterWodjzwmQUHZJVWQLX5605-76-53 20:00:00 Test Item Value Reference Range Interpretation Comments Monocytes (test code = Monocytes) 5.1 2.0-12.0 [facility] CenterUdizfodEBTIUQFXVG9112-88-84 20:00:00 Test Item Value Reference Range Interpretation Comments Eosinophils (test code = 1.7 See_Comment [A utomated message] The Eosinophils) system which ge nerated this result tra nsmitted reference range : <=4.0. The reference r joan was not used to int erpret this result as normal/abnormal . [facility] CenterZmqossfRIFBLFLHEG8444-97-33 20:00:00 Test Item Value Reference Range Interpretation Comments Basophils (test code = 0.5 See_Comment [Aut omated message] The Basophils) system which ge nerated this result tra nsmitted reference range : <=1.0. The reference r joan was not used to int erpret this result as normal/abnormal . [facility] CenterBsjbdynAHRRRLPGEB3227-64-10 20:00:00 Test Item Value Reference Range Interpretation Comments Segs-Bands # (test code = Segs-Bands #) 5.2 1.5-8.1 [facility] CenterHocvqnuIQPAQENHPB9973-02-41 20:00:00 Test Item Value Reference Range Interpretation Comments Lymphocytes (test code = Lymphocytes) 24.9 20.0-40.0 [facility] CenterZgyxyjaCXNAYJJFJT2477-65-05 20:00:00 Test Item Value Reference Range Interpretation Comments Eosinophils # (test code 0.1 See_Comment [A utomated message] The = Eosinophils #) system [facility] h generated this result tra nsmitted reference range : <=0.5. The reference r joan was not used to int erpret this result as normal/abnormal . [facility] CenterRfipgqoPLFCMYSKMJ7762-37-43 20:00:00 Test Item Value Reference Range Interpretation Comments Lymphocytes # (test code = Lymphocytes 1.9 1.0-5.5 #) [facility] CenterHyatmzyJJRTJDJOXD8954-75-13 20:00:00 Test Item Value Reference Range Interpretation Comments Monocytes # (test code 0.4 See_Comment [Aut omated message] The = Monocytes #) system which generated this result tra nsmitted reference range : <=0.8. The reference r joan was not used to int erpret this result as normal/abnormal . [facility]2014-12-11 20:00:00 Test Item Value Reference Range Interpretation Comments eGFR (test code = eGFR) 121 [facility]2014-12-11 20:00:00 Test Item Value Reference Range Interpretation Comments Calcium Lvl (test code = Calcium Lvl) 10.0 8.5-10.5 [facility]2014-12-11 20:00:00 Test Item Value Reference Range Interpretation Comments AST (test code = AST) 8 See_Comment [Auto mated message] The system which ge nerated this result transmit richard reference range : <=37. The reference range was not used to interpr et this result as robbie l/abnormal. [facility]2014-12-11 20:00:00 Test Item Value Reference Range Interpretation Comments ALT (test code = ALT) 13 See_Comment [Auto mated message] The system which ge nerated this result transmit richard reference range : <=65. The reference range was not used to interpr et this result as robbie l/abnormal. [facility]2014-12-11 20:00:00 Test Item Value Reference Range Interpretation Comments Albumin Lvl (test code = Albumin Lvl) 4.7 3.5-5.0 [facility]2014-12-11 20:00:00 Test Item Value Reference Range Interpretation Comments Total Protein (test code = Total 7.9 6.4-8.4 Protein) [facility]2014-12-11 20:00:00 Test Item Value Reference Range Interpretation Comments Bili Total (test code = Bili Total) 0.7 0.2-1.3 [place] 029064-12-11 20:00:00 Test Item Value Reference Range Interpretation Comments Alk Phos (test code = Alk Phos) 59 39-136 [facility]2014-12-11 20:00:00 Test Item Value Reference Range Interpretation Comments CO2 (test code = CO2) 30 24-32 [facility]2014-12-11 20:00:00 Test Item Value Reference Range Interpretation Comments Sodium Lvl (test code = Sodium Lvl) 142 135-145 [facility]2014-12-11 20:00:00 Test Item Value Reference Range Interpretation Comments Potassium Lvl (test code = Potassium 4.3 3.5-5.1 Lvl) [facility]2014-12-11 20:00:00 Test Item Value Reference Range Interpretation Comments Chloride Lvl (test code = Chloride Lvl) 103 95-109 [facility]2014-12-11 20:00:00 Test Item Value Reference Range Interpretation Comments Glucose Lvl (test code = Glucose Lvl) 78 70-99 [facility]2014-12-11 20:00:00 Test Item Value Reference Range Interpretation Comments BUN (test code = BUN) 10 7-22 [facility]2014-12-11 20:00:00 Test Item Value Reference Range Interpretation Comments Creatinine Lvl (test code = Creatinine 0.7 0.5-1.4 Lvl) [facility]2014-12-11 20:00:00 Test Item Value Reference Range Interpretation Comments Globulin (test code = Globulin) 3.2 2.0-4.0 [facility]2014-12-11 20:00:00 Test Item Value Reference Range Interpretation Comments B/C Ratio (test code = B/C Ratio) 14 6-25 [facility]2014-12-11 20:00:00 Test Item Value Reference Range Interpretation Comments AGAP (test code = AGAP) 13.3 10.0-20.0 [facility]2014-12-11 20:00:00 Test Item Value Reference Range Interpretation Comments A/G Ratio (test code = A/G Ratio) 1.5 0.7-1.6 [facility] CenterHeojmbpHATYBOMLRH2909-23-17 20:00:00 Test Item Value Reference Range Interpretation Comments INR (test code = INR) 0.96 0.85-1.17 [facility] CenterWnmrssgZWVRCKUNMH3868-82-80 20:00:00 Test Item Value Reference Range Interpretation Comments PT (test code = PT) 12.8 s 12.0-14.7 [facility] CenterGmzhdmtDRVXBUKPPI1342-82-16 20:00:00 Test Item Value Reference Range Interpretation Comments PTT (test code = PTT) 30.3 s 22.9-35.8 [facility] CenterMsmfywuHHSKGIIDDS6241-75-31 20:00:00 Test Item Value Reference Range Interpretation Comments Hgb (test code = Hgb) 14.7 12.0-16.0 [facility] CenterPzghbwlZLYGAZQVIL8025-87-26 20:00:00 Test Item Value Reference Range Interpretation Comments WBC (test code = WBC) 7.6 3.7-10.4 [facility] CenterHqcsijzLQYXFGJLGG5013-75-50 20:00:00 Test Item Value Reference Range Interpretation Comments RBC (test code = RBC) 4.96 4.20-5.40 [facility] CenterEbjepefROOBFVNRPH6196-10-81 20:00:00 Test Item Value Reference Range Interpretation Comments MCV (test code = MCV) 90.2 80.0-98.0 [facility] CenterRzalpioHCWUSCBZPY5636-33-55 20:00:00 Test Item Value Reference Range Interpretation Comments MCH (test code = MCH) 29.6 pg 27.0-31.0 [facility] CenterRqaclfvNXIGDSQYWO5729-20-21 20:00:00 Test Item Value Reference Range Interpretation Comments MCHC (test code = MCHC) 32.8 32.0-36.0 [facility] CenterKoqsteqUEQIRFBRNT6622-12-49 20:00:00 Test Item Value Reference Range Interpretation Comments RDW (test code = RDW) 12.7 11.5-14.5 [facility] CenterGcsrsmiGBECPRZJYQ8807-09-64 20:00:00 Test Item Value Reference Range Interpretation Comments Hct (test code = Hct) 44.7 36.0-48.0 [facility] CenterVnbmcvcNGKIRTMFNU9222-81-77 20:00:00 Test Item Value Reference Range Interpretation Comments Platelet (test code = Platelet) 308 133-450 [facility] CenterZfnaegdBZSGYONMBX8896-91-41 20:00:00 Test Item Value Reference Range Interpretation Comments MPV (test code = MPV) 8.7 7.4-10.4 [facility] CenterEnklrknDKGAJIWNZR9502-19-36 20:00:00 Test Item Value Reference Range Interpretation Comments Segs (test code = Segs) 67.8 45.0-75.0 [facility] CenterTxlllghKUPFETKSZB7046-57-03 20:00:00 Test Item Value Reference Range Interpretation Comments Monocytes (test code = Monocytes) 5.1 2.0-12.0 [facility] CenterEuqhltnZJPQMJYOZN5190-68-09 20:00:00 Test Item Value Reference Range Interpretation Comments Eosinophils (test code = 1.7 See_Comment [A utomated message] The Eosinophils) system which ge nerated this result tra nsmitted reference range : <=4.0. The reference r joan was not used to int erpret this result as normal/abnormal . [facility] CenterHibzyxmOUIGNCBUEJ7368-26-00 20:00:00 Test Item Value Reference Range Interpretation Comments Basophils (test code = 0.5 See_Comment [Aut omated message] The Basophils) system which ge nerated this result tra nsmitted reference range : <=1.0. The reference r joan was not used to int erpret this result as normal/abnormal . [facility] CenterGhgdnueKUPZXUVBQW6443-81-79 20:00:00 Test Item Value Reference Range Interpretation Comments Segs-Bands # (test code = Segs-Bands #) 5.2 1.5-8.1 [facility] CenterGogdrzrIUUKUYNFWV9688-72-59 20:00:00 Test Item Value Reference Range Interpretation Comments Lymphocytes (test code = Lymphocytes) 24.9 20.0-40.0 [facility] CenterLtkhgjmVXLUVIHRNO4765-27-06 20:00:00 Test Item Value Reference Range Interpretation Comments Eosinophils # (test code 0.1 See_Comment [A utomated message] The = Eosinophils #) system ic h generated this result tra nsmitted reference range : <=0.5. The reference r joan was not used to int erpret this result as normal/abnormal . [facility] CenterVyugeghPIZCIFYJSA6973-08-40 20:00:00 Test Item Value Reference Range Interpretation Comments Lymphocytes # (test code = Lymphocytes 1.9 1.0-5.5 #) [facility] CenterXfiafywSGSHWOQPFV6276-19-62 20:00:00 Test Item Value Reference Range Interpretation Comments Monocytes # (test code 0.4 See_Comment [Aut omated message] The = Monocytes #) system which generated this result tra nsmitted reference range : <=0.8. The reference r joan was not used to int erpret this result as normal/abnormal . [facility]2014-10-15 19:36:00 Test Item Value Reference Range Interpretation Comments Protein CSF (test code = Protein CSF) 26 15-45 [facility]2014-10-15 19:36:00 Test Item Value Reference Range Interpretation Comments Glucose CSF (test code = Glucose CSF) 54 45-80 [facility]2014-10-15 19:36:00 Test Item Value Reference Range Interpretation Comments Clarity CSF (test code = Clear (05/15/14 2:36 Clarity CSF) PM) [facility]2014-10-15 19:36:00 Test Item Value Reference Range Interpretation Comments Supernat CSF (test Colorless (05/15/14 code = Supernat CSF) 2:36 PM) [facility]2014-10-15 19:36:00 Test Item Value Reference Range Interpretation Comments WBC CSF (test code = 0 See_Comment [Autom ated message] The WBC CSF) system which ge nerated this result transmit richard reference range : <=53. The reference range was not used to interpr et this result as robbie l/abnormal. [facility] [id number] 19:36:00 Test Item Value Reference Range Interpretation Comments Comment CSF (test Differential not code = Comment CSF) performed on WBC count of less than 5. [facility]2014-10-15 19:36:00 Test Item Value Reference Range Interpretation Comments RBC CSF (test code = 0 See_Comment [Autom ated message] The RBC CSF) system which ge nerated this result transmit richard reference range : <=03. The reference range was not used to interpr et this result as robbie l/abnormal. [facility] CVLNGJ2950-04-93 19:36:00 Test Item Value Reference Range Interpretation Comments Tube Num CSF (test code = Tube Num CSF) 1 1 [facility]2014-10-15 19:36:00 Test Item Value Reference Range Interpretation Comments Color CSF (test code Colorless (05/15/14 2:36 = Color CSF) PM) [facility]2014-10-15 19:36:00 Test Item Value Reference Range Interpretation Comments Protein CSF (test code = Protein CSF) 26 15-45 [facility]2014-10-15 19:36:00 Test Item Value Reference Range Interpretation Comments Glucose CSF (test code = Glucose CSF) 54 45-80 [facility]2014-10-15 19:36:00 Test Item Value Reference Range Interpretation Comments Clarity CSF (test code = Clear (05/15/14 2:36 Clarity CSF) PM) [facility]2014-10-15 19:36:00 Test Item Value Reference Range Interpretation Comments Supernat CSF (test Colorless (05/15/14 code = Supernat CSF) 2:36 PM) [facility]2014-10-15 19:36:00 Test Item Value Reference Range Interpretation Comments WBC CSF (test code = 0 See_Comment [Autom ated message] The WBC CSF) system which ge nerated this result transmit richard reference range : <=53. The reference range was not used to interpr et this result as robbie l/abnormal. [facility]2014-10-15 19:36:00 Test Item Value Reference Range Interpretation Comments Comment CSF (test Differential not code = Comment CSF) performed on WBC count of less than 5. [facility]2014-10-15 19:36:00 Test Item Value Reference Range Interpretation Comments RBC CSF (test code = 0 See_Comment [Autom ated message] The RBC CSF) system which ge nerated this result transmit richard reference range : <=03. The reference range was not used to interpr et this result as robbie l/abnormal. [facility]2014-10-15 19:36:00 Test Item Value Reference Range Interpretation Comments Tube Num CSF (test code = Tube Num CSF) 1 1 [facility]2014-10-15 19:36:00 Test Item Value Reference Range Interpretation Comments Color CSF (test code Colorless (05/15/14 2:36 = Color CSF) PM) [facility]X1151[facility] 18:45:00 Test Item Value Reference Range Interpretation Comments AGAP (test code = AGAP) 9.8 10.0-20.0 [facility]BzhjgmxDVZIIMIEURHM4388-68-79 18:45:00 Test Item Value Reference Range Interpretation Comments B/C Ratio (test code = B/C Ratio) 16 6-25 [facility]NzgzsdoXTLUFQDNZQSI5587-75-89 18:45:00 Test Item Value Reference Range Interpretation Comments Globulin (test code = Globulin) 4.0 2.0-4.0 [facility]FxvgntlVFDSTNJQIQQC6239-01-89 18:45:00 Test Item Value Reference Range Interpretation Comments A/G Ratio (test code = A/G Ratio) 1.1 0.7-1.6 [facility]EgesbutUUGBHIPMGNRO1869-75-45 18:45:00 Test Item Value Reference Range Interpretation Comments eGFR (test code = eGFR) 121 [facility]CmicqeiEZMSTOMGAGFZ5591-35-35 18:45:00 Test Item Value Reference Range Interpretation Comments Alk Phos (test code = Alk Phos) 67 39-136 [facility]AgktgtiFLUXRSHVSURK8193-67-88 18:45:00 Test Item Value Reference Range Interpretation Comments Bili Total (test code = Bili Total) 0.6 0.2-1.3 [facility]ZewfhdzPPLBWQSIJDQV6706-14-22 18:45:00 Test Item Value Reference Range Interpretation Comments Calcium Lvl (test code = Calcium Lvl) 9.0 8.5-10.5 [facility]IngiwklQZKCOFFJEIXF9047-03-32 18:45:00 Test Item Value Reference Range Interpretation Comments Potassium Lvl (test code = Potassium 3.8 3.5-5.1 Lvl) [facility]WyhzjbmOGPBTAEWAWSH3226-06-87 18:45:00 Test Item Value Reference Range Interpretation Comments CO2 (test code = CO2) 28 24-32 [facility]EpgvoitWYACGZMDUIUE1295-69-60 18:45:00 Test Item Value Reference Range Interpretation Comments Sodium Lvl (test code = Sodium Lvl) 140 135-145 [facility] HospitalBismpzdQIDWIGCARCSC9382-08-68 18:45:00 Test Item Value Reference Range Interpretation Comments Chloride Lvl (test code = Chloride Lvl) 106 95-109 [facility] HospitalBdztvwgHCEQJRQGHATY4669-37-57 18:45:00 Test Item Value Reference Range Interpretation Comments AST (test code = AST) 12 See_Comment [Auto mated message] The system which ge nerated this result transmit richard reference range : <=37. The reference range was not used to interpr et this result as robbie l/abnormal. [facility]ofppgySVSIEVERSWKH4668-79-58 18:45:00 Test Item Value Reference Range Interpretation Comments Total Protein (test code = Total 8.3 6.4-8.4 Protein) [id number] 18:45:00 Test Item Value Reference Range Interpretation Comments Albumin Lvl (test code = Albumin Lvl) 4.3 3.5-5.0 [facility] HospitalTwyyteyMWSOJNIQSIFL4620-98-66 18:45:00 Test Item Value Reference Range Interpretation Comments ALT (test code = ALT) 17 See_Comment [Auto mated message] The system which ge nerated this result transmit richard reference range : <=65. The reference range was not used to interpr et this result as robbie l/abnormal. [facility] HospitalYfejsbwPTQWIPUCUBCC7033-43-42 18:45:00 Test Item Value Reference Range Interpretation Comments Creatinine Lvl (test code = Creatinine 0.7 0.5-1.4 Lvl) [facility] HospitalIpodvbdLNIHLXBBBZQF2655-26-57 18:45:00 Test Item Value Reference Range Interpretation Comments BUN (test code = BUN) 11 7-22 [facility] HospitalJszstxxLEGRCNVFWKAB8016-32-11 18:45:00 Test Item Value Reference Range Interpretation Comments Glucose Lvl (test code = Glucose Lvl) 87 70-99 [place] [id number] 18:45:00 Test Item Value Reference Range Interpretation Comments S Preg (test code = S Negative *NA*(05/06/14 Preg) 1:45 PM) [facility] CenterZxearimGSIUVXNEYP1817-07-03 18:45:00 Test Item Value Reference Range Interpretation Comments Basophils (test code = 0.7 See_Comment [Aut omated message] The Basophils) system which ge nerated this result tra nsmitted reference range : <=1.0. The reference r joan was not used to int erpret this result as normal/abnormal . [facility] CenterRbaanmfYDWBTINBVC7124-52-70 18:45:00 Test Item Value Reference Range Interpretation Comments Eosinophils (test code = 1.0 See_Comment [A utomated message] The Eosinophils) system which ge nerated this result tra nsmitted reference range : <=4.0. The reference r joan was not used to int erpret this result as normal/abnormal . [facility] CenterOddklbuAXARHLFQXP6348-28-71 18:45:00 Test Item Value Reference Range Interpretation Comments Eosinophils # (test code 0.1 See_Comment [A utomated message] The = Eosinophils #) system whic h generated this result tra nsmitted reference range : <=0.5. The reference r joan was not used to int erpret this result as normal/abnormal . [facility] CenterJcijspyBLRKTRTCDU6832-60-17 18:45:00 Test Item Value Reference Range Interpretation Comments Monocytes # (test code 0.6 See_Comment [Aut omated message] The = Monocytes #) system which generated this result tra nsmitted reference range : <=0.8. The reference r joan was not used to int erpret this result as normal/abnormal . [facility] CenterQyliwxsGVWILYVIEW4967-45-68 18:45:00 Test Item Value Reference Range Interpretation Comments Monocytes (test code = Monocytes) 5.8 2.0-12.0 [facility] CenterGycsdeyBYFTQTIIIW0997-02-91 18:45:00 Test Item Value Reference Range Interpretation Comments Basophils # (test code 0.1 See_Comment [Aut omated message] The = Basophils #) system which generated this result tra nsmitted reference range : <=0.2. The reference r joan was not used to int erpret this result as normal/abnormal . [facility] CenterBmetaagHBPDMYCUVS2213-42-77 18:45:00 Test Item Value Reference Range Interpretation Comments Lymphocytes (test code = Lymphocytes) 21.5 20.0-40.0 [facility] CenterEfiufeoCQONKXSEXQ4213-94-04 18:45:00 Test Item Value Reference Range Interpretation Comments Lymphocytes # (test code = Lymphocytes 2.1 1.0-5.5 #) [facility] CenterMzleosaABKCGEFMPV6268-33-27 18:45:00 Test Item Value Reference Range Interpretation Comments Segs-Bands # (test code = Segs-Bands #) 7.0 1.5-8.1 [facility] CenterPopdupwGFZHPQYICH3412-24-93 18:45:00 Test Item Value Reference Range Interpretation Comments Segs (test code = Segs) 71.0 45.0-75.0 [facility] CenterPcsevywRFZCNMNBYG6588-49-76 18:45:00 Test Item Value Reference Range Interpretation Comments MCHC (test code = MCHC) 32.9 32.0-36.0 [facility] CenterMdeyxuuPRSBIYVLIM1787-75-69 18:45:00 Test Item Value Reference Range Interpretation Comments MCH (test code = MCH) 29.2 pg 27.0-31.0 [facility] CenterKpjsminLCWGNRIKVH8995-83-35 18:45:00 Test Item Value Reference Range Interpretation Comments MCV (test code = MCV) 88.7 80.0-98.0 [facility] CenterNpekgnlCAEPQADFUZ1144-66-10 18:45:00 Test Item Value Reference Range Interpretation Comments MPV (test code = MPV) 8.4 7.4-10.4 [facility] CenterEhfodyxRGMNVZRCNT1965-43-37 18:45:00 Test Item Value Reference Range Interpretation Comments Platelet (test code = Platelet) 264 133-450 [facility] CenterIgtcvklURSBEEFIWE5044-20-90 18:45:00 Test Item Value Reference Range Interpretation Comments RDW (test code = RDW) 12.8 11.5-14.5 [facility] CenterKnhtpeaZZHJGSZIAJ8606-22-28 18:45:00 Test Item Value Reference Range Interpretation Comments Hgb (test code = Hgb) 14.6 12.0-16.0 [facility] CenterOnqrsafRFDGZSCEFX8664-07-85 18:45:00 Test Item Value Reference Range Interpretation Comments Hct (test code = Hct) 44.3 36.0-48.0 [facility] CenterLsyvyrkUAOWMFNLHO1541-64-42 18:45:00 Test Item Value Reference Range Interpretation Comments WBC (test code = WBC) 9.9 3.7-10.4 [facility] CenterTlkexugSRSEHECKQR9028-87-31 18:45:00 Test Item Value Reference Range Interpretation Comments RBC (test code = RBC) 4.99 4.20-5.40 [facility]aleSjaubtnPVLMWKAFJC5435-32-22 18:45:00 Test Item Value Reference Range Interpretation Comments [facility] HIV 4th GEN (test Negative (05/06/14 1:45 code = CDC HIV 4th PM) GEN) [facility] HospitalYhdiwguUTDUFQVMBNFW2970-32-98 18:45:00 Test Item Value Reference Range Interpretation Comments AGAP (test code = AGAP) 9.8 10.0-20.0 [facility] HospitalKgwrcxvOXKJHWTGDGPI1106-95-35 18:45:00 Test Item Value Reference Range Interpretation Comments B/C Ratio (test code = B/C Ratio) 16 6-25 [facility] HospitalEnrqnrlAHOJUNGZLOPQ0395-90-49 18:45:00 Test Item Value Reference Range Interpretation Comments Globulin (test code = Globulin) 4.0 2.0-4.0 [facility] HospitalIhbsvczYRVJWICXZKXQ3267-53-13 18:45:00 Test Item Value Reference Range Interpretation Comments A/G Ratio (test code = A/G Ratio) 1.1 0.7-1.6 [facility] HospitalXyqsbhmTKPDLFLVOYJP4251-36-08 18:45:00 Test Item Value Reference Range Interpretation Comments eGFR (test code = eGFR) 121 [facility] HospitalRxnnfumGEGREMGPEIGY3081-29-39 18:45:00 Test Item Value Reference Range Interpretation Comments Alk Phos (test code = Alk Phos) 67 39-136 [facility] HospitalUkrrhvbKXYZAVWWIAEK2006-90-92 18:45:00 Test Item Value Reference Range Interpretation Comments Bili Total (test code = Bili Total) 0.6 0.2-1.3 [facility] HospitalAjhotopXVLEEMYESXZO4002-69-15 18:45:00 Test Item Value Reference Range Interpretation Comments Calcium Lvl (test code = Calcium Lvl) 9.0 8.5-10.5 [facility] HospitalGdfgqglZRLZFVUXXYSU8710-89-17 18:45:00 Test Item Value Reference Range Interpretation Comments Potassium Lvl (test code = Potassium 3.8 3.5-5.1 Lvl) [facility] HospitalFcplvnaKZJVSEQIHUVZ0571-77-50 18:45:00 Test Item Value Reference Range Interpretation Comments CO2 (test code = CO2) 28 24-32 [facility] HospitalYlpcahaVFODSXQTFZVL9437-16-74 18:45:00 Test Item Value Reference Range Interpretation Comments Sodium Lvl (test code = Sodium Lvl) 140 135-145 [facility] HospitalRxsanclNCMMJIWROLPR9097-70-87 18:45:00 Test Item Value Reference Range Interpretation Comments Chloride Lvl (test code = Chloride Lvl) 106 95-109 [facility] HospitalDswonuzFOBTROFISBZM7259-09-02 18:45:00 Test Item Value Reference Range Interpretation Comments AST (test code = AST) 12 See_Comment [Auto mated message] The system which ge nerated this result transmit richard reference range : <=37. The reference range was not used to interpr et this result as robbie l/abnormal. [facility] HospitalTrbtrlrAAKXXMWGTHYI4383-87-19 18:45:00 Test Item Value Reference Range Interpretation Comments Total Protein (test code = Total 8.3 6.4-8.4 Protein) [facility] HospitalUyzxkqoMJSQDTAYMRSV2860-62-09 18:45:00 Test Item Value Reference Range Interpretation Comments Albumin Lvl (test code = Albumin Lvl) 4.3 3.5-5.0 [facility] HospitalLhlftylEMGNROIGRKEV5225-30-78 18:45:00 Test Item Value Reference Range Interpretation Comments ALT (test code = ALT) 17 See_Comment [Auto mated message] The system which ge nerated this result transmit richard reference range : <=65. The reference range was not used to interpr et this result as robbie l/abnormal. [facility] HospitalYjtywfeTGCSLXNNNNZK1691-00-25 18:45:00 Test Item Value Reference Range Interpretation Comments Creatinine Lvl (test code = Creatinine 0.7 0.5-1.4 Lvl) [facility] HospitalZeqedzhLRBNHPYOPNXS0974-96-27 18:45:00 Test Item Value Reference Range Interpretation Comments BUN (test code = BUN) 11 7-22 [facility] HospitalPxzcoleVYHEWQRJMBHB6623-80-76 18:45:00 Test Item Value Reference Range Interpretation Comments Glucose Lvl (test code = Glucose Lvl) 87 70-99 [place] [id number] 18:45:00 Test Item Value Reference Range Interpretation Comments S Preg (test code = S Negative *NA*(05/06/14 Preg) 1:45 PM) [facility] CenterKkbfaapMRXGSMASRV5272-96-64 18:45:00 Test Item Value Reference Range Interpretation Comments Basophils (test code = 0.7 See_Comment [Aut omated message] The Basophils) system which ge nerated this result tra nsmitted reference range : <=1.0. The reference r joan was not used to int erpret this result as normal/abnormal . [facility] CenterKkepfrsQFQPAIMXFW9895-80-63 18:45:00 Test Item Value Reference Range Interpretation Comments Eosinophils (test code = 1.0 See_Comment [A utomated message] The Eosinophils) system which ge nerated this result tra nsmitted reference range : <=4.0. The reference r joan was not used to int erpret this result as normal/abnormal . [facility] CenterMbiuercDESGUVXWDZ7592-09-64 18:45:00 Test Item Value Reference Range Interpretation Comments Eosinophils # (test code 0.1 See_Comment [A utomated message] The = Eosinophils #) system whic h generated this result tra nsmitted reference range : <=0.5. The reference r joan was not used to int erpret this result as normal/abnormal . [facility] CenterOdamlfsZPYAYNXSMB4403-25-92 18:45:00 Test Item Value Reference Range Interpretation Comments Monocytes # (test code 0.6 See_Comment [Aut omated message] The = Monocytes #) system which generated this result tra nsmitted reference range : <=0.8. The reference r joan was not used to int erpret this result as normal/abnormal . [facility] CenterLfqlgzgIHJZXYDWJC0356-57-89 18:45:00 Test Item Value Reference Range Interpretation Comments Monocytes (test code = Monocytes) 5.8 2.0-12.0 [facility] CenterGnofccdRYJBBHVREV9271-09-68 18:45:00 Test Item Value Reference Range Interpretation Comments Basophils # (test code 0.1 See_Comment [Aut omated message] The = Basophils #) system which generated this result tra nsmitted reference range : <=0.2. The reference r joan was not used to int erpret this result as normal/abnormal . [facility] CenterVmmdnckYDLTVYKWMB4001-84-86 18:45:00 Test Item Value Reference Range Interpretation Comments Lymphocytes (test code = Lymphocytes) 21.5 20.0-40.0 [facility] CenterIhcjnjiFEEAONQLHS8877-13-49 18:45:00 Test Item Value Reference Range Interpretation Comments Lymphocytes # (test code = Lymphocytes 2.1 1.0-5.5 #) [facility] CenterHdmolrqRHESCFATMG7602-32-26 18:45:00 Test Item Value Reference Range Interpretation Comments Segs-Bands # (test code = Segs-Bands #) 7.0 1.5-8.1 [facility] CenterLturhsfKPNEOGIXTQ9783-69-19 18:45:00 Test Item Value Reference Range Interpretation Comments Segs (test code = Segs) 71.0 45.0-75.0 [facility] CenterIxafsksXEOTZWDAQM0287-92-35 18:45:00 Test Item Value Reference Range Interpretation Comments MCHC (test code = MCHC) 32.9 32.0-36.0 [facility] CenterTwmzfiwRXJLKCHOXD4904-53-13 18:45:00 Test Item Value Reference Range Interpretation Comments MCH (test code = MCH) 29.2 pg 27.0-31.0 [facility] CenterRfjnzufIVGECXYFDU7374-88-90 18:45:00 Test Item Value Reference Range Interpretation Comments MCV (test code = MCV) 88.7 80.0-98.0 [facility] CenterJeoylwnHTGPJPUMGH2631-10-51 18:45:00 Test Item Value Reference Range Interpretation Comments MPV (test code = MPV) 8.4 7.4-10.4 [facility] CenterTtxpbfiSVZDHQELEX2669-53-36 18:45:00 Test Item Value Reference Range Interpretation Comments Platelet (test code = Platelet) 264 133-450 [facility] CenterQrejsirFMAUZRUTHW7450-93-30 18:45:00 Test Item Value Reference Range Interpretation Comments RDW (test code = RDW) 12.8 11.5-14.5 [facility] CenterZviimcsYEKHHMWNLY1423-95-45 18:45:00 Test Item Value Reference Range Interpretation Comments Hgb (test code = Hgb) 14.6 12.0-16.0 [facility] CenterKcbxlwsNZMFAPHIJC0983-33-10 18:45:00 Test Item Value Reference Range Interpretation Comments Hct (test code = Hct) 44.3 36.0-48.0 [facility] CenterXzrzjvbUEFBKLCAMG9912-47-06 18:45:00 Test Item Value Reference Range Interpretation Comments WBC (test code = WBC) 9.9 3.7-10.4 [facility] CenterOklymrhSKNHWCRIWG4267-08-02 18:45:00 Test Item Value Reference Range Interpretation Comments RBC (test code = RBC) 4.99 4.20-5.40 [facility]PpcjsgpAGXGZJGSON4417-82-75 18:45:00 Test Item Value Reference Range Interpretation Comments CDC HIV 4th GEN (test Negative (05/06/14 1:45 code = CDC HIV 4th PM) GEN) [facility]2013-11-05 14:57:00 Test Item Value Reference Range Interpretation Comments Protein CSF (test code = Protein CSF) 26 15-45 N [facility]2013-11-05 14:57:00 Test Item Value Reference Range Interpretation Comments Glucose CSF (test code = Glucose CSF) 65 45-80 N [facility]2013-11-05 14:57:00 Test Item Value Reference Range Interpretation Comments Monocyte CSF (test code = Monocyte CSF) 7 15-45 L [facility]2013-11-05 14:57:00 Test Item Value Reference Range Interpretation Comments Segs CSF (test code = 1 See_Comment N [Auto mated message] The Segs CSF) system which ge nerated this result transmit richard reference range : <=6. The reference range was not used to interpr et this result as robbie l/abnormal. [facility]aleVoxliHNYYHT1600-72-95 14:57:00 Test Item Value Reference Range Interpretation Comments Lymph CSF (test code = Lymph CSF) 92 40-80 H [facility] QBIYQD5048-62-44 14:57:00 Test Item Value Reference Range Interpretation Comments RBC CSF (test code = 47 See_Comment H [Autom ated message] The RBC CSF) system which ge nerated this result transmit richard reference range : <=0. The reference range was not used to interpr et this result as robbie l/abnormal. [facility]aleVoxliEUGFME3062-07-41 14:57:00 Test Item Value Reference Range Interpretation Comments Clarity CSF (test code = Clear (06/05/2013 N Clarity CSF) 08:57:00) [facility] KXILBI9480-71-77 14:57:00 Test Item Value Reference Range Interpretation Comments WBC CSF (test code = 14 See_Comment H [Autom ated message] The WBC CSF) system which ge nerated this result transmit richard reference range : <=5. The reference range was not used to interpr et this result as robbie l/abnormal. [facility]aleVoxliLKARGL6132-91-01 14:57:00 Test Item Value Reference Range Interpretation Comments Supernat CSF (test Colorless (06/05/2013 N code = Supernat CSF) 08:57:00) [facility] [id number] 14:57:00 Test Item Value Reference Range Interpretation Comments Tube Num CSF (test code = Tube Num CSF) 3 1 [facility] [id number] 14:57:00 Test Item Value Reference Range Interpretation Comments Color CSF (test code Colorless (06/05/2013 N = Color CSF) 08:57:00) [facility] GOQAME8167-14-61 14:57:00 Test Item Value Reference Range Interpretation Comments Protein CSF (test code = Protein CSF) 26 15-45 N [facility] [id number] 14:57:00 Test Item Value Reference Range Interpretation Comments Glucose CSF (test code = Glucose CSF) 65 45-80 N [facility]aleVoxliBODGZS4321-34-54 14:57:00 Test Item Value Reference Range Interpretation Comments Monocyte CSF (test code = Monocyte CSF) 7 15-45 L [facility]aleVoxliRKTMGN9921-95-44 14:57:00 Test Item Value Reference Range Interpretation Comments Segs CSF (test code = 1 See_Comment N [Auto mated message] The Segs CSF) system which ge nerated this result transmit richard reference range : <=6. The reference range was not used to interpr et this result as robbie l/abnormal. [facility] [id number] 14:57:00 Test Item Value Reference Range Interpretation Comments Lymph CSF (test code = Lymph CSF) 92 40-80 H [facility]aleVoxliOOKHDO2209-07-24 14:57:00 Test Item Value Reference Range Interpretation Comments RBC CSF (test code = 47 See_Comment H [Autom ated message] The RBC CSF) system which ge nerated this result transmit richard reference range : <=0. The reference range was not used to interpr et this result as robbie l/abnormal. [facility]aleVoxliFTVJTE1925-91-51 14:57:00 Test Item Value Reference Range Interpretation Comments Clarity CSF (test code = Clear (06/05/2013 N Clarity CSF) 08:57:00) [facility]aleVoxliYPPZER7933-34-02 14:57:00 Test Item Value Reference Range Interpretation Comments WBC CSF (test code = 14 See_Comment H [Autom ated message] The WBC CSF) system which ge nerated this result transmit richard reference range : <=5. The reference range was not used to interpr et this result as robbie l/abnormal. [facility]aleVoxliREQGQM2458-41-23 14:57:00 Test Item Value Reference Range Interpretation Comments Supernat CSF (test Colorless (06/05/2013 N code = Supernat CSF) 08:57:00) [facility] [id number] 14:57:00 Test Item Value Reference Range Interpretation Comments Tube Num CSF (test code = Tube Num CSF) 3 1 [facility]aleVoxliOULADS5753-30-22 14:57:00 Test Item Value Reference Range Interpretation Comments Color CSF (test code Colorless (06/05/2013 N = Color CSF) 08:57:00) [facility]aleVoxliBGCPYY0666-20-74 23:25:00 Test Item Value Reference Range Interpretation Comments Protein CSF (test code = Protein CSF) 34 15-45 N [facility]2013-10-31 23:25:00 Test Item Value Reference Range Interpretation Comments Lymph CSF (test code = Lymph CSF) 93 40-80 H [facility]2013-10-31 23:25:00 Test Item Value Reference Range Interpretation Comments Monocyte CSF (test code = Monocyte CSF) 6 15-45 L [facility]2013-10-31 23:25:00 Test Item Value Reference Range Interpretation Comments Eos CSF (test code = Eos CSF) 1 [facility]2013-10-31 23:25:00 Test Item Value Reference Range Interpretation Comments Segs CSF (test code = 0 See_Comment N [Auto mated message] The Segs CSF) system which ge nerated this result transmit richard reference range : <=6. The reference range was not used to interpr et this result as robbie l/abnormal. [facility]2013-10-31 23:25:00 Test Item Value Reference Range Interpretation Comments RBC CSF (test code = 16 See_Comment H [Autom ated message] The RBC CSF) system which ge nerated this result transmit richard reference range : <=0. The reference range was not used to interpr et this result as robbie l/abnormal. [facility]2013-10-31 23:25:00 Test Item Value Reference Range Interpretation Comments Color CSF (test code Colorless (05/31/2013 N = Color CSF) 18:25:00) [facility]2013-10-31 23:25:00 Test Item Value Reference Range Interpretation Comments Tube Num CSF (test code = Tube Num CSF) 3 1 [facility]2013-10-31 23:25:00 Test Item Value Reference Range Interpretation Comments Supernat CSF (test Colorless (05/31/2013 N code = Supernat CSF) 18:25:00) [facility] [id number] 23:25:00 Test Item Value Reference Range Interpretation Comments Clarity CSF (test code = Clear (05/31/2013 N Clarity CSF) 18:25:00) [facility]2013-10-31 23:25:00 Test Item Value Reference Range Interpretation Comments WBC CSF (test code = 28 See_Comment H [Autom ated message] The WBC CSF) system which ge nerated this result transmit richard reference range : <=5. The reference range was not used to interpr et this result as robbie l/abnormal. [facility] [id number] 23:25:00 Test Item Value Reference Range Interpretation Comments Glucose CSF (test code = Glucose CSF) 51 45-80 N [facility]2013-10-31 23:25:00 Test Item Value Reference Range Interpretation Comments Segs CSF (test code = 0 See_Comment N [Auto mated message] The Segs CSF) system which ge nerated this result transmit richard reference range : <=6. The reference range was not used to interpr et this result as robbie l/abnormal. [facility] [id number] 23:25:00 Test Item Value Reference Range Interpretation Comments Monocyte CSF (test code = Monocyte CSF) 2 15-45 L [facility]2013-10-31 23:25:00 Test Item Value Reference Range Interpretation Comments Lymph CSF (test code = Lymph CSF) 98 40-80 H [facility]2013-10-31 23:25:00 Test Item Value Reference Range Interpretation Comments Tube Num CSF (test code = Tube Num CSF) 1 1 [facility]2013-10-31 23:25:00 Test Item Value Reference Range Interpretation Comments Supernat CSF (test Colorless (05/31/2013 N code = Supernat CSF) 18:25:00) [facility]2013-10-31 23:25:00 Test Item Value Reference Range Interpretation Comments Clarity CSF (test code = Clear (05/31/2013 N Clarity CSF) 18:25:00) [facility]2013-10-31 23:25:00 Test Item Value Reference Range Interpretation Comments Color CSF (test code Colorless (05/31/2013 N = Color CSF) 18:25:00) [facility]2013-10-31 23:25:00 Test Item Value Reference Range Interpretation Comments RBC CSF (test code = 21 See_Comment H [Autom ated message] The RBC CSF) system which ge nerated this result transmit richard reference range : <=0. The reference range was not used to interpr et this result as robbie l/abnormal. [facility] [id number] 23:25:00 Test Item Value Reference Range Interpretation Comments WBC CSF (test code = 17 See_Comment H [Autom ated message] The WBC CSF) system which ge nerated this result transmit richard reference range : <=5. The reference range was not used to interpr et this result as robbie l/abnormal. [facility] EDVICL1037-10-23 23:25:00 Test Item Value Reference Range Interpretation Comments Protein CSF (test code = Protein CSF) 34 15-45 N [facility]2013-10-31 23:25:00 Test Item Value Reference Range Interpretation Comments Lymph CSF (test code = Lymph CSF) 93 40-80 H [facility] [id number] 23:25:00 Test Item Value Reference Range Interpretation Comments Monocyte CSF (test code = Monocyte CSF) 6 15-45 L [facility] [id number] 23:25:00 Test Item Value Reference Range Interpretation Comments Eos CSF (test code = Eos CSF) 1 [facility] [id number] 23:25:00 Test Item Value Reference Range Interpretation Comments Segs CSF (test code = 0 See_Comment N [Auto mated message] The Segs CSF) system which ge nerated this result transmit richard reference range : <=6. The reference range was not used to interpr et this result as robbie l/abnormal. [facility] [id number] 23:25:00 Test Item Value Reference Range Interpretation Comments RBC CSF (test code = 16 See_Comment H [Autom ated message] The RBC CSF) system which ge nerated this result transmit richard reference range : <=0. The reference range was not used to interpr et this result as robbie l/abnormal. [facility] [id number] 23:25:00 Test Item Value Reference Range Interpretation Comments Color CSF (test code Colorless (05/31/2013 N = Color CSF) 18:25:00) [facility] [id number] 23:25:00 Test Item Value Reference Range Interpretation Comments Tube Num CSF (test code = Tube Num CSF) 3 1 [facility] [id number] 23:25:00 Test Item Value Reference Range Interpretation Comments Supernat CSF (test Colorless (05/31/2013 N code = Supernat CSF) 18:25:00) [facility] [id number] 23:25:00 Test Item Value Reference Range Interpretation Comments Clarity CSF (test code = Clear (05/31/2013 N Clarity CSF) 18:25:00) [facility] [id number] 23:25:00 Test Item Value Reference Range Interpretation Comments WBC CSF (test code = 28 See_Comment H [Autom ated message] The WBC CSF) system which ge nerated this result transmit richard reference range : <=5. The reference range was not used to interpr et this result as robbie l/abnormal. [facility] [id number] 23:25:00 Test Item Value Reference Range Interpretation Comments Glucose CSF (test code = Glucose CSF) 51 45-80 N [facility] [id number] 23:25:00 Test Item Value Reference Range Interpretation Comments Segs CSF (test code = 0 See_Comment N [Auto mated message] The Segs CSF) system which ge nerated this result transmit richard reference range : <=6. The reference range was not used to interpr et this result as robbie l/abnormal. [facility] [id number] 23:25:00 Test Item Value Reference Range Interpretation Comments Monocyte CSF (test code = Monocyte CSF) 2 15-45 L [facility] [id number] 23:25:00 Test Item Value Reference Range Interpretation Comments Lymph CSF (test code = Lymph CSF) 98 40-80 H [facility] [id number] 23:25:00 Test Item Value Reference Range Interpretation Comments Tube Num CSF (test code = Tube Num CSF) 1 1 [facility] [id number] 23:25:00 Test Item Value Reference Range Interpretation Comments Supernat CSF (test Colorless (05/31/2013 N code = Supernat CSF) 18:25:00) [facility] [id number] 23:25:00 Test Item Value Reference Range Interpretation Comments Clarity CSF (test code = Clear (05/31/2013 N Clarity CSF) 18:25:00) [facility] [id number] 23:25:00 Test Item Value Reference Range Interpretation Comments Color CSF (test code Colorless (05/31/2013 N = Color CSF) 18:25:00) [facility] [id number] 23:25:00 Test Item Value Reference Range Interpretation Comments RBC CSF (test code = 21 See_Comment H [Autom ated message] The RBC CSF) system which ge nerated this result transmit richard reference range : <=0. The reference range was not used to interpr et this result as robbie l/abnormal. [facility]2013-10-31 23:25:00 Test Item Value Reference Range Interpretation Comments WBC CSF (test code = 17 See_Comment H [Autom ated message] The WBC CSF) system which ge nerated this result transmit richard reference range : <=5. The reference range was not used to interpr et this result as robbie l/abnormal. [facility]FcphudfXYYKVZGDQ5119-84-69 21:00:55 Test Item Value Reference Range Interpretation Comments AGAP (test code = AGAP) 13.9 10.0-20.0 N [facility] HospitalUpttnsbHGRJTUQLZ0545-93-27 21:00:55 Test Item Value Reference Range Interpretation Comments eGFR (test code = eGFR) 122 [facility] HospitalSnbsjchVEAMMJIVU9292-58-57 21:00:55 Test Item Value Reference Range Interpretation Comments CO2 (test code = CO2) 28 24-32 N [facility] HospitalCmzpgeqGAYLXGBWO8988-50-69 21:00:55 Test Item Value Reference Range Interpretation Comments Calcium Lvl (test code = Calcium Lvl) 9.5 8.5-10.5 N [facility] HospitalPnunpdsIROPOHRYJ4969-23-01 21:00:55 Test Item Value Reference Range Interpretation Comments Sodium Lvl (test code = Sodium Lvl) 139 135-145 N [facility] HospitalOspxcezDSEJNPGQJ0499-70-95 21:00:55 Test Item Value Reference Range Interpretation Comments Potassium Lvl (test code = Potassium 3.9 3.5-5.1 N Lvl) [facility] HospitalNsgskbbXZVMGQHRJ0848-63-65 21:00:55 Test Item Value Reference Range Interpretation Comments Chloride Lvl (test code = Chloride Lvl) 101 95-109 N [facility] HospitalXheubcaNHKPXMTYF1073-18-65 21:00:55 Test Item Value Reference Range Interpretation Comments Creatinine Lvl (test code = Creatinine 0.7 0.5-1.4 N Lvl) [facility] HospitalSwscignRDTHVNQEU7946-21-63 21:00:55 Test Item Value Reference Range Interpretation Comments Glucose Lvl (test code = Glucose Lvl) 109 70-99 H [facility] HospitalCxlkegcZWOZEYEAR1437-55-69 21:00:55 Test Item Value Reference Range Interpretation Comments BUN (test code = BUN) 13 7-22 N [facility] HospitalRkqfctxPDUOBNULS1078-82-53 21:00:55 Test Item Value Reference Range Interpretation Comments AGAP (test code = AGAP) 13.9 10.0-20.0 N [facility] HospitalEpriyuwCBGHONTLE0402-27-08 21:00:55 Test Item Value Reference Range Interpretation Comments eGFR (test code = eGFR) 122 [facility] HospitalWkygkzqIDDZJYIGU3542-94-71 21:00:55 Test Item Value Reference Range Interpretation Comments CO2 (test code = CO2) 28 24-32 N [facility] HospitalVlwfhssAPISNJONV3345-62-47 21:00:55 Test Item Value Reference Range Interpretation Comments Calcium Lvl (test code = Calcium Lvl) 9.5 8.5-10.5 N [facility] HospitalFykcvkyCYZRDBSTD5656-55-96 21:00:55 Test Item Value Reference Range Interpretation Comments Sodium Lvl (test code = Sodium Lvl) 139 135-145 N [facility] HospitalYdwogdbQKFCDOPXO4355-66-23 21:00:55 Test Item Value Reference Range Interpretation Comments Potassium Lvl (test code = Potassium 3.9 3.5-5.1 N Lvl) [facility] HospitalQwrvcfwRLBAJWEDR8274-94-65 21:00:55 Test Item Value Reference Range Interpretation Comments Chloride Lvl (test code = Chloride Lvl) 101 95-109 N [facility] HospitalDmohmhpRAYGHVPFQ6952-02-74 21:00:55 Test Item Value Reference Range Interpretation Comments Creatinine Lvl (test code = Creatinine 0.7 0.5-1.4 N Lvl) [facility] HospitalTbtnndkNKRJFOEQA4255-79-53 21:00:55 Test Item Value Reference Range Interpretation Comments Glucose Lvl (test code = Glucose Lvl) 109 70-99 H [facility] HospitalBeuapuzOJYTSPYMM9774-39-71 21:00:55 Test Item Value Reference Range Interpretation Comments BUN (test code = BUN) 13 7-22 N [facility] CenterBjjfzmaGWSWIFTXWB3013-92-42 21:00:17 Test Item Value Reference Range Interpretation Comments Hgb (test code = Hgb) 12.6 12.0-16.0 N [facility] CenterDhpgfdkJNGNBNJNCN7119-30-82 21:00:17 Test Item Value Reference Range Interpretation Comments WBC X 10x3 (test code = WBC X 10x3) 10.2 3.7-10.4 N [facility] CenterJqgxcokFFPHPPPLKB4937-31-44 21:00:17 Test Item Value Reference Range Interpretation Comments RBC X 10x6 (test code = RBC X 10x6) 4.28 4.20-5.40 N [facility] CenterExslrumQZUHTRJDYT0631-53-59 21:00:17 Test Item Value Reference Range Interpretation Comments Hct (test code = Hct) 38.3 36.0-48.0 N [facility] CenterGimnfkeIYFTGVOJFM9235-19-28 21:00:17 Test Item Value Reference Range Interpretation Comments MCH (test code = MCH) 29.5 pg 27.0-31.0 N [facility] CenterTssypqsQDQILIEIVB9407-55-90 21:00:17 Test Item Value Reference Range Interpretation Comments MCV (test code = MCV) 89.4 81.0-99.0 N [facility] CenterVznfuffEZDKXBICLJ8737-36-48 21:00:17 Test Item Value Reference Range Interpretation Comments MCHC (test code = MCHC) 32.9 32.0-36.0 N [facility] CenterFgppablSCCNSQPXFU3035-06-09 21:00:17 Test Item Value Reference Range Interpretation Comments RDW (test code = RDW) 12.2 11.5-14.5 N [facility] CenterMnypyoiURLQWFHYUL1540-69-00 21:00:17 Test Item Value Reference Range Interpretation Comments Platelet (test code = Platelet) 350 133-450 N [facility] CenterHvxynmlDZFYPUWWCU5393-28-80 21:00:17 Test Item Value Reference Range Interpretation Comments MPV (test code = MPV) 7.8 7.4-10.4 N [facility] CenterBxqcufoMNGCDGDVXJ5230-67-58 21:00:17 Test Item Value Reference Range Interpretation Comments Atypical Lymphs (test code = Atypical 0.0 N Lymphs) [facility] CenterAoxutapINZYYMGLST5849-73-24 21:00:17 Test Item Value Reference Range Interpretation Comments Basophils (test code = 1.0 See_Comment N [Aut omated message] The Basophils) system which ge nerated this result tra nsmitted reference range : <=1.0. The reference r joan was not used to int erpret this result as normal/abnormal . [facility] CenterCwubfupIJNRUFDSAQ2451-42-12 21:00:17 Test Item Value Reference Range Interpretation Comments Myelocytes (test code = Myelocytes) 1.0 H [facility] CenterZmucuahMSJLLTLGCO6184-89-31 21:00:17 Test Item Value Reference Range Interpretation Comments Segs (test code = Segs) 73.0 45.0-75.0 N [facility] CenterPcvsqnrTLEXHDIYFP9488-47-37 21:00:17 Test Item Value Reference Range Interpretation Comments Bands (test code = 1.0 See_Comment N [Automat ed message] The Bands) system which ge nerated this result transmit richard reference range : <=11.0. The reference r joan was not used to interpr et this result as robbie l/abnormal. [facility] CenterTrrqhkuBYXCAUKUHF8142-14-68 21:00:17 Test Item Value Reference Range Interpretation Comments Monocytes (test code = Monocytes) 6.0 2.0-12.0 N [facility] CenterUrupbscAUPVFFDVQS4075-31-19 21:00:17 Test Item Value Reference Range Interpretation Comments Lymphocytes (test code = Lymphocytes) 18.0 20.0-40.0 L [facility] CenterVwccdlnBGSPPPFKPO9723-45-57 21:00:17 Test Item Value Reference Range Interpretation Comments Basophils # (test code 0.1 See_Comment N [Aut omated message] The = Basophils #) system which generated this result tra nsmitted reference range : <=0.2. The reference r joan was not used to int erpret this result as normal/abnormal . [facility] CenterOpcxobjIEFXTNRONX5619-90-29 21:00:17 Test Item Value Reference Range Interpretation Comments Monocytes # (test code 0.6 See_Comment N [Aut omated message] The = Monocytes #) system which generated this result tra nsmitted reference range : <=0.8. The reference r joan was not used to int erpret this result as normal/abnormal . [facility] CenterObjjyeoWIGTSCWYEX3027-68-18 21:00:17 Test Item Value Reference Range Interpretation Comments Plt Morph (test code = Normal (05/31/2013 N Plt Morph) 16:00:17) [facility] CenterIkozdaeYXAGLPQJGU8561-78-92 21:00:17 Test Item Value Reference Range Interpretation Comments RBC Morph (test code = Normal (05/31/2013 N RBC Morph) 16:00:17) [facility] CenterQwbakhpRTYSMAGVUJ7982-19-47 21:00:17 Test Item Value Reference Range Interpretation Comments Segs-Bands # (test code = Segs-Bands #) 7.5 1.5-8.1 N [facility] CenterMhykjogVAIZFCCTAB2810-67-65 21:00:17 Test Item Value Reference Range Interpretation Comments Lymphocytes # (test code = Lymphocytes 1.8 1.0-5.5 N #) [facility] CenterPzhgzwcHHTSJDFBUC8868-47-51 21:00:17 Test Item Value Reference Range Interpretation Comments Hgb (test code = Hgb) 12.6 12.0-16.0 N [facility] CenterKszlwqmFVDGSYPIWB0109-15-88 21:00:17 Test Item Value Reference Range Interpretation Comments WBC X 10x3 (test code = WBC X 10x3) 10.2 3.7-10.4 N [facility] CenterKldqnpyHNTJKAXMBW2845-42-83 21:00:17 Test Item Value Reference Range Interpretation Comments RBC X 10x6 (test code = RBC X 10x6) 4.28 4.20-5.40 N [facility] CenterFgxqptqAFBNJSLEKU1083-33-16 21:00:17 Test Item Value Reference Range Interpretation Comments Hct (test code = Hct) 38.3 36.0-48.0 N [facility] CenterKrutltcEWAKIYYOEB1616-78-78 21:00:17 Test Item Value Reference Range Interpretation Comments MCH (test code = MCH) 29.5 pg 27.0-31.0 N [facility] CenterZcnolfjJLNLQMXOZF1770-71-68 21:00:17 Test Item Value Reference Range Interpretation Comments MCV (test code = MCV) 89.4 81.0-99.0 N [facility] CenterRvzisrcYUSPSVAARK3331-97-52 21:00:17 Test Item Value Reference Range Interpretation Comments MCHC (test code = MCHC) 32.9 32.0-36.0 N [facility] CenterUxhfixuPNDKYHPPCZ1635-12-48 21:00:17 Test Item Value Reference Range Interpretation Comments RDW (test code = RDW) 12.2 11.5-14.5 N [facility] CenterOxoaoyfCHTIJCIPIO3953-94-16 21:00:17 Test Item Value Reference Range Interpretation Comments Platelet (test code = Platelet) 350 133-450 N [facility] CenterRhctnqaSQDTHGWUXB3990-86-39 21:00:17 Test Item Value Reference Range Interpretation Comments MPV (test code = MPV) 7.8 7.4-10.4 N [facility] CenterDbzwjbvTUSRZWTLWB1525-65-43 21:00:17 Test Item Value Reference Range Interpretation Comments Atypical Lymphs (test code = Atypical 0.0 N Lymphs) [facility] CenterUzxdttjXYLJREMZZG4955-11-28 21:00:17 Test Item Value Reference Range Interpretation Comments Basophils (test code = 1.0 See_Comment N [Aut omated message] The Basophils) system which ge nerated this result tra nsmitted reference range : <=1.0. The reference r joan was not used to int erpret this result as normal/abnormal . [facility] CenterPegebmeZEVEQVEJCB4070-88-19 21:00:17 Test Item Value Reference Range Interpretation Comments Myelocytes (test code = Myelocytes) 1.0 H [facility] CenterOzyunsuQRCMOCDINL2134-97-62 21:00:17 Test Item Value Reference Range Interpretation Comments Segs (test code = Segs) 73.0 45.0-75.0 N [facility] CenterWjhbrpqINNHSCBWBL1375-55-92 21:00:17 Test Item Value Reference Range Interpretation Comments Bands (test code = 1.0 See_Comment N [Automat ed message] The Bands) system which ge nerated this result transmit richard reference range : <=11.0. The reference r joan was not used to interpr et this result as robbie l/abnormal. [facility] CenterYmutuftBWHNLRCVKL8207-97-88 21:00:17 Test Item Value Reference Range Interpretation Comments Monocytes (test code = Monocytes) 6.0 2.0-12.0 N [facility] CenterMcexolpFEFKNYOZGJ9647-92-12 21:00:17 Test Item Value Reference Range Interpretation Comments Lymphocytes (test code = Lymphocytes) 18.0 20.0-40.0 L [facility] CenterJuerwtbFUEMKISJYG7703-53-04 21:00:17 Test Item Value Reference Range Interpretation Comments Basophils # (test code 0.1 See_Comment N [Aut omated message] The = Basophils #) system which generated this result tra nsmitted reference range : <=0.2. The reference r joan was not used to int erpret this result as normal/abnormal . [facility] CenterRmgnsgmFTJVGHLBSD7482-26-50 21:00:17 Test Item Value Reference Range Interpretation Comments Monocytes # (test code 0.6 See_Comment N [Aut omated message] The = Monocytes #) system which generated this result tra nsmitted reference range : <=0.8. The reference r joan was not used to int erpret this result as normal/abnormal . [facility] CenterZciflngLUHYHHNDNQ1753-64-10 21:00:17 Test Item Value Reference Range Interpretation Comments Plt Morph (test code = Normal (05/31/2013 N Plt Morph) 16:00:17) [facility] CenterWgqheczZAPAXHXQKF7800-63-13 21:00:17 Test Item Value Reference Range Interpretation Comments RBC Morph (test code = Normal (05/31/2013 N RBC Morph) 16:00:17) [facility] CenterDpkwtenHUXWUXQSQA4427-87-48 21:00:17 Test Item Value Reference Range Interpretation Comments Segs-Bands # (test code = Segs-Bands #) 7.5 1.5-8.1 N [facility] CenterOhmatfiPAZCUBRRQS8681-40-92 21:00:17 Test Item Value Reference Range Interpretation Comments Lymphocytes # (test code = Lymphocytes 1.8 1.0-5.5 N #) [facility] GLUCOSE XIGOJNC3534-62-14 22:20:00 Test Item Value Reference Range Interpretation Comments Glucose POC (test code = Glucose POC) 139 70-99 H [facility] GLUCOSE MMFPYYN1558-76-90 22:20:00 Test Item Value Reference Range Interpretation Comments Glucose POC (test code = Glucose POC) 139 70-99 H [facility] HospitalMjyvzodZAMNUCWEY1863-00-41 10:41:00 Test Item Value Reference Range Interpretation Comments Magnesium Lvl (test code = Magnesium 1.7 1.8-2.4 L Lvl) [facility] HospitalOkeypzeLBQXMBQHT8873-77-66 10:41:00 Test Item Value Reference Range Interpretation Comments AGAP (test code = AGAP) 15.1 10.0-20.0 N [facility] HospitalXyzvobuHHXBISTXQ7847-97-81 10:41:00 Test Item Value Reference Range Interpretation Comments eGFR (test code = eGFR) 90 [facility] HospitalKgmtlowKUPMKNLUR2478-24-24 10:41:00 Test Item Value Reference Range Interpretation Comments Glucose Lvl (test code = Glucose Lvl) 114 70-99 H [facility] HospitalBxipoxwEWHBBKXVX6760-66-60 10:41:00 Test Item Value Reference Range Interpretation Comments CO2 (test code = CO2) 25 24-32 N [facility] HospitalNhshavqYJDTJKRKM7076-53-97 10:41:00 Test Item Value Reference Range Interpretation Comments Calcium Lvl (test code = Calcium Lvl) 8.7 8.5-10.5 N [facility] HospitalQslphzmHBUFMZKQH2067-82-73 10:41:00 Test Item Value Reference Range Interpretation Comments Potassium Lvl (test code = Potassium 4.1 3.5-5.1 N Lvl) [facility] HospitalJhbkherVNTWMUQTV8215-81-60 10:41:00 Test Item Value Reference Range Interpretation Comments Chloride Lvl (test code = Chloride Lvl) 108 95-109 N [facility] HospitalMwhalbhAHHSQLBPW4533-83-72 10:41:00 Test Item Value Reference Range Interpretation Comments Sodium Lvl (test code = Sodium Lvl) 144 135-145 N [facility] HospitalYbjcuupXBSXZOTJD0959-33-68 10:41:00 Test Item Value Reference Range Interpretation Comments Creatinine Lvl (test code = Creatinine 0.9 0.5-1.4 N Lvl) [facility] HospitalIohlrpvXBZJXHFZC3591-78-73 10:41:00 Test Item Value Reference Range Interpretation Comments BUN (test code = BUN) 13 7-22 N [facility] HospitalUzrhxgpHMDFTQXGX8424-86-16 10:41:00 Test Item Value Reference Range Interpretation Comments Phosphorus (test code = Phosphorus) 2.7 2.5-4.5 N [facility] HospitalCugpyfvOGGAESFFV7456-04-85 10:41:00 Test Item Value Reference Range Interpretation Comments Ca Ion WB (test code = Ca Ion WB) 1.09 1.05-1.25 N [facility] HospitalLmbfyhvBHNGSUTYJ3159-84-77 10:41:00 Test Item Value Reference Range Interpretation Comments Ca Norm WB (test code = Ca Norm WB) 1.11 1.05-1.25 N [facility] CenterRbtentmJONFMHKBLV3191-66-60 10:41:00 Test Item Value Reference Range Interpretation Comments MPV (test code = MPV) 9.3 7.4-10.4 N [facility] CenterXszgpfbHKEXIAZTYU4029-17-78 10:41:00 Test Item Value Reference Range Interpretation Comments Platelet (test code = Platelet) 214 133-450 N [facility] CenterFyrdxskTVPWNGRBJH6443-81-78 10:41:00 Test Item Value Reference Range Interpretation Comments RDW (test code = RDW) 12.2 11.5-14.5 N [facility] CenterIrjdhtjSFWOLXPLZB0429-54-36 10:41:00 Test Item Value Reference Range Interpretation Comments Hct (test code = Hct) 30.8 36.0-48.0 L [facility] CenterTviakmpWFYCJODBSZ5962-39-89 10:41:00 Test Item Value Reference Range Interpretation Comments MCH (test code = MCH) 30.7 pg 27.0-31.0 N [facility] CenterRojcibcVHTIAATLDT5823-34-34 10:41:00 Test Item Value Reference Range Interpretation Comments MCV (test code = MCV) 90.8 81.0-99.0 N [facility] CenterQezsruiBEJVYACOOP3766-06-82 10:41:00 Test Item Value Reference Range Interpretation Comments MCHC (test code = MCHC) 33.9 32.0-36.0 N [facility] CenterPqcstxoNBSSAGJJKE2191-90-46 10:41:00 Test Item Value Reference Range Interpretation Comments WBC X 10x3 (test code = WBC X 10x3) 17.7 3.7-10.4 H [facility] CenterNonamzuBABHKZMECQ9061-13-19 10:41:00 Test Item Value Reference Range Interpretation Comments Hgb (test code = Hgb) 10.4 12.0-16.0 L [facility] CenterAhutoeyLQYHVWDUBP4062-75-71 10:41:00 Test Item Value Reference Range Interpretation Comments RBC X 10x6 (test code = RBC X 10x6) 3.39 4.20-5.40 L [facility] CenterDimzvdnLHLMRYBEVF5554-22-09 10:41:00 Test Item Value Reference Range Interpretation Comments Segs-Bands # (test code = Segs-Bands #) 15.4 1.5-8.1 H [facility] CenterZytjtavVSTHVBGRQL8499-21-78 10:41:00 Test Item Value Reference Range Interpretation Comments Lymphocytes # (test code = Lymphocytes 1.5 1.0-5.5 N #) [facility] CenterAuenoutCKEUHQZGYC5175-56-62 10:41:00 Test Item Value Reference Range Interpretation Comments Monocytes # (test code 0.7 See_Comment N [Aut omated message] The = Monocytes #) system which generated this result tra nsmitted reference range : <=0.8. The reference r joan was not used to int erpret this result as normal/abnormal . [facility] CenterHxupzayDJARMHFKAC6010-12-03 10:41:00 Test Item Value Reference Range Interpretation Comments Segs (test code = Segs) 87.0 45.0-75.0 H [facility] CenterXvnwmpiPSABLYCFCV7530-38-34 10:41:00 Test Item Value Reference Range Interpretation Comments Basophils (test code = 0.1 See_Comment N [Aut omated message] The Basophils) system which ge nerated this result tra nsmitted reference range : <=1.0. The reference r joan was not used to int erpret this result as normal/abnormal . [facility] CenterRbzsemdVQYYPVNIDA2512-79-60 10:41:00 Test Item Value Reference Range Interpretation Comments Monocytes (test code = Monocytes) 4.2 2.0-12.0 N [facility] CenterKgtfzrfEUOHQWSHUA9809-32-28 10:41:00 Test Item Value Reference Range Interpretation Comments Lymphocytes (test code = Lymphocytes) 8.7 20.0-40.0 L [facility] HospitalLnsocwtWJJAHUZYG1812-47-13 10:41:00 Test Item Value Reference Range Interpretation Comments Magnesium Lvl (test code = Magnesium 1.7 1.8-2.4 L Lvl) [facility] HospitalDgdlgorURVTWXBQH0673-73-14 10:41:00 Test Item Value Reference Range Interpretation Comments AGAP (test code = AGAP) 15.1 10.0-20.0 N [facility] HospitalHnwdftwEZEMUTDHY5268-69-84 10:41:00 Test Item Value Reference Range Interpretation Comments eGFR (test code = eGFR) 90 [facility] HospitalVrkycwuAUZFZVPPM7427-61-39 10:41:00 Test Item Value Reference Range Interpretation Comments Glucose Lvl (test code = Glucose Lvl) 114 70-99 H [facility] HospitalJngdjopMVQDSNMUS2064-18-53 10:41:00 Test Item Value Reference Range Interpretation Comments CO2 (test code = CO2) 25 24-32 N [facility] HospitalEalklkfKDCQOTAPV5180-44-42 10:41:00 Test Item Value Reference Range Interpretation Comments Calcium Lvl (test code = Calcium Lvl) 8.7 8.5-10.5 N [facility] HospitalVojzqzlKITJCWUOS2928-00-70 10:41:00 Test Item Value Reference Range Interpretation Comments Potassium Lvl (test code = Potassium 4.1 3.5-5.1 N Lvl) [facility] HospitalLzptgksIUTUTKLNT9415-63-76 10:41:00 Test Item Value Reference Range Interpretation Comments Chloride Lvl (test code = Chloride Lvl) 108 95-109 N [facility]VwrmhptAHSMNXONV9410-93-29 10:41:00 Test Item Value Reference Range Interpretation Comments Sodium Lvl (test code = Sodium Lvl) 144 135-145 N [facility] HospitalMdjradxCBRXQKUXK1134-78-67 10:41:00 Test Item Value Reference Range Interpretation Comments Creatinine Lvl (test code = Creatinine 0.9 0.5-1.4 N Lvl) [facility]DxawqfvCRRUHPKJC4191-81-64 10:41:00 Test Item Value Reference Range Interpretation Comments BUN (test code = BUN) 13 7-22 N [facility] HospitalRqjowflCPKZKQWSC8992-42-79 10:41:00 Test Item Value Reference Range Interpretation Comments Phosphorus (test code = Phosphorus) 2.7 2.5-4.5 N [facility] HospitalYgsxdwuBTYTFQVQJ6230-11-93 10:41:00 Test Item Value Reference Range Interpretation Comments Ca Ion WB (test code = Ca Ion WB) 1.09 1.05-1.25 N [facility] HospitalKlhvzdfKSFRRAKAS8102-05-18 10:41:00 Test Item Value Reference Range Interpretation Comments Ca Norm WB (test code = Ca Norm WB) 1.11 1.05-1.25 N [facility] CenterCnkqxmhXVYGJPWLDR5154-35-36 10:41:00 Test Item Value Reference Range Interpretation Comments MPV (test code = MPV) 9.3 7.4-10.4 N [facility] CenterBxpswxzTDMTUIILJF5598-21-96 10:41:00 Test Item Value Reference Range Interpretation Comments Platelet (test code = Platelet) 214 133-450 N [facility] CenterMrzkoaePCHKPROIMT4358-33-59 10:41:00 Test Item Value Reference Range Interpretation Comments RDW (test code = RDW) 12.2 11.5-14.5 N [facility] CenterXylilxtVRRJBDJRVI4645-21-72 10:41:00 Test Item Value Reference Range Interpretation Comments Hct (test code = Hct) 30.8 36.0-48.0 L [facility] CenterOlhkbfwHAJPIGQWEA3472-12-20 10:41:00 Test Item Value Reference Range Interpretation Comments MCH (test code = MCH) 30.7 pg 27.0-31.0 N [facility] CenterHhnjnisNYVCNEKNIR0383-70-92 10:41:00 Test Item Value Reference Range Interpretation Comments MCV (test code = MCV) 90.8 81.0-99.0 N [facility] CenterEyxgyjiUFFUNGIZSW9977-54-24 10:41:00 Test Item Value Reference Range Interpretation Comments MCHC (test code = MCHC) 33.9 32.0-36.0 N [facility] CenterWxmgqbeQSDSSRKSUV8434-32-55 10:41:00 Test Item Value Reference Range Interpretation Comments WBC X 10x3 (test code = WBC X 10x3) 17.7 3.7-10.4 H [facility] CenterZmmogbqGYKBOPMSUX2529-81-61 10:41:00 Test Item Value Reference Range Interpretation Comments Hgb (test code = Hgb) 10.4 12.0-16.0 L [facility] CenterFftfeyuKNQQZIKTGR4696-67-32 10:41:00 Test Item Value Reference Range Interpretation Comments RBC X 10x6 (test code = RBC X 10x6) 3.39 4.20-5.40 L [facility] CenterDcmkrbsHNXSYYMBBK1740-25-49 10:41:00 Test Item Value Reference Range Interpretation Comments Segs-Bands # (test code = Segs-Bands #) 15.4 1.5-8.1 H [facility] CenterLqpmloaMEULSBQZVC3985-12-31 10:41:00 Test Item Value Reference Range Interpretation Comments Lymphocytes # (test code = Lymphocytes 1.5 1.0-5.5 N #) [facility] CenterXgnjdcoLDOZRNSXHF2032-16-07 10:41:00 Test Item Value Reference Range Interpretation Comments Monocytes # (test code 0.7 See_Comment N [Aut omated message] The = Monocytes #) system which generated this result tra nsmitted reference range : <=0.8. The reference r joan was not used to int erpret this result as normal/abnormal . [facility] CenterNcvaylzJGWJJUTEKB8997-73-49 10:41:00 Test Item Value Reference Range Interpretation Comments Segs (test code = Segs) 87.0 45.0-75.0 H [facility] CenterChrbqtlVXRNPNVDWI6299-01-38 10:41:00 Test Item Value Reference Range Interpretation Comments Basophils (test code = 0.1 See_Comment N [Aut omated message] The Basophils) system which ge nerated this result tra nsmitted reference range : <=1.0. The reference r joan was not used to int erpret this result as normal/abnormal . [facility] CenterQwxybkoOXITYUINYT9065-85-25 10:41:00 Test Item Value Reference Range Interpretation Comments Monocytes (test code = Monocytes) 4.2 2.0-12.0 N [facility] CenterOlocbbbNWBOQXBFLN5110-43-36 10:41:00 Test Item Value Reference Range Interpretation Comments Lymphocytes (test code = Lymphocytes) 8.7 20.0-40.0 L [facility] GLUCOSE UOVZEJF5290-21-16 00:31:00 Test Item Value Reference Range Interpretation Comments Glucose POC (test code = Glucose POC) 136 70-99 H [facility] GLUCOSE RLIBTKZ1136-89-56 00:31:00 Test Item Value Reference Range Interpretation Comments Gluc POC Comment 1 (test code = Notify RN/MD Gluc POC Comment 1) [facility] GLUCOSE ZLRJCZI3052-72-33 00:31:00 Test Item Value Reference Range Interpretation Comments Glucose POC (test code = Glucose POC) 136 70-99 H [facility] GLUCOSE MUVAYKF2018-47-84 00:31:00 Test Item Value Reference Range Interpretation Comments Gluc POC Comment 1 (test code = Notify RN/MD Gluc POC Comment 1) [facility] GLUCOSE IRMMOCQ7003-51-74 17:02:00 Test Item Value Reference Range Interpretation Comments Glucose POC (test code = Glucose POC) 130 70-99 H [facility] GLUCOSE LIVMTGR4355-90-02 17:02:00 Test Item Value Reference Range Interpretation Comments Glucose POC (test code = Glucose POC) 130 70-99 H [facility] GLUCOSE RKSAYVB8316-05-72 08:33:00 Test Item Value Reference Range Interpretation Comments Gluc POC Comment 1 (test code = Notify RN/MD Gluc POC Comment 1) [facility] GLUCOSE VRJFPEE9796-89-30 08:33:00 Test Item Value Reference Range Interpretation Comments Gluc POC Comment 1 (test code = Notify RN/MD Gluc POC Comment 1) [facility] HospitalMcbambzNARPCSHBS1770-76-79 05:50:00 Test Item Value Reference Range Interpretation Comments Magnesium Lvl (test code = Magnesium 1.7 1.8-2.4 L Lvl) [facility] HospitalQlvommqZKBYNLXJP6294-28-09 05:50:00 Test Item Value Reference Range Interpretation Comments eGFR (test code = eGFR) 104 [facility]JsjneasTTBVQBBVW5760-59-82 05:50:00 Test Item Value Reference Range Interpretation Comments AGAP (test code = AGAP) 17.7 10.0-20.0 N [facility] HospitalRhiabfeUOQIKBLRW0811-35-26 05:50:00 Test Item Value Reference Range Interpretation Comments Calcium Lvl (test code = Calcium Lvl) 8.1 8.5-10.5 L [facility] HospitalPhuumhoTKGVMFDJZ1769-37-99 05:50:00 Test Item Value Reference Range Interpretation Comments CO2 (test code = CO2) 23 24-32 L [facility] HospitalTxbbsrrKFMQDWAEG4862-60-72 05:50:00 Test Item Value Reference Range Interpretation Comments Chloride Lvl (test code = Chloride Lvl) 108 95-109 N [facility] HospitalGivpyknNAGIXEYUG3722-00-12 05:50:00 Test Item Value Reference Range Interpretation Comments Potassium Lvl (test code = Potassium 3.7 3.5-5.1 N Lvl) [facility] HospitalWlarpogUSGGASPJH6823-54-31 05:50:00 Test Item Value Reference Range Interpretation Comments Sodium Lvl (test code = Sodium Lvl) 145 135-145 N [facility] HospitalJxrhxriOCVPFBELY9386-53-78 05:50:00 Test Item Value Reference Range Interpretation Comments Creatinine Lvl (test code = Creatinine 0.8 0.5-1.4 N Lvl) [facility] HospitalPnvogfkRVWHMZWXT8423-33-35 05:50:00 Test Item Value Reference Range Interpretation Comments BUN (test code = BUN) 9 7-22 N [facility] HospitalNqsexetPGVXZNZUX5260-98-79 05:50:00 Test Item Value Reference Range Interpretation Comments Glucose Lvl (test code = Glucose Lvl) 118 70-99 H [facility] HospitalAtslsizBCKNAIBBZ3631-48-12 05:50:00 Test Item Value Reference Range Interpretation Comments Phosphorus (test code = Phosphorus) 2.5 2.5-4.5 N [facility] HospitalErykakwUEGUIBNNV0617-14-05 05:50:00 Test Item Value Reference Range Interpretation Comments Ca Ion WB (test code = Ca Ion WB) 1.13 1.05-1.25 N [facility] HospitalUqryytfVEBCDJSZV9410-45-77 05:50:00 Test Item Value Reference Range Interpretation Comments Ca Norm WB (test code = Ca Norm WB) 1.13 1.05-1.25 N [facility] CenterAxokcrrXBGHCOJPRX1845-24-74 05:50:00 Test Item Value Reference Range Interpretation Comments Monocytes # (test code 1.4 See_Comment H [Aut omated message] The = Monocytes #) system which generated this result tra nsmitted reference range : <=0.8. The reference r joan was not used to int erpret this result as normal/abnormal . [facility] CenterXglhdlmKAUITFZMHH1392-95-75 05:50:00 Test Item Value Reference Range Interpretation Comments Lymphocytes # (test code = Lymphocytes 1.6 1.0-5.5 N #) [facility] CenterFzbugqkWKXNVRUHHZ9174-85-85 05:50:00 Test Item Value Reference Range Interpretation Comments Segs-Bands # (test code = Segs-Bands #) 13.8 1.5-8.1 H [facility] CenterVcbsbfrSMTNLOULOQ0464-80-50 05:50:00 Test Item Value Reference Range Interpretation Comments Basophils (test code = 0.1 See_Comment N [Aut omated message] The Basophils) system which ge nerated this result tra nsmitted reference range : <=1.0. The reference r joan was not used to int erpret this result as normal/abnormal . [facility] CenterHdpzyebVMVPQEEGLH5843-86-82 05:50:00 Test Item Value Reference Range Interpretation Comments Monocytes (test code = Monocytes) 8.3 2.0-12.0 N [facility] CenterSqpwtjuXYIHGXHESX5655-82-42 05:50:00 Test Item Value Reference Range Interpretation Comments Lymphocytes (test code = Lymphocytes) 9.6 20.0-40.0 L [facility] CenterSllprauJYVUQACEZP0018-58-72 05:50:00 Test Item Value Reference Range Interpretation Comments Segs (test code = Segs) 82.0 45.0-75.0 H [facility] CenterByemdatBSEMUOSMVZ8635-89-03 05:50:00 Test Item Value Reference Range Interpretation Comments INR (test code = INR) 1.18 0.85-1.17 H [facility] CenterVoxmknnXYDKUXAMWI8225-09-52 05:50:00 Test Item Value Reference Range Interpretation Comments PROTIME (test code = PROTIME) 14.9 s 12.0-14.7 H [facility] CenterZerwiaySHUJJPBMVM1029-82-02 05:50:00 Test Item Value Reference Range Interpretation Comments aPTT (test code = aPTT) 26.1 s 22.9-35.8 N [facility] CenterPmkbeklEJXJVQMMUW2417-28-16 05:50:00 Test Item Value Reference Range Interpretation Comments Hgb (test code = Hgb) 9.8 12.0-16.0 L [facility] CenterFtcplagCSZTJJXFDH7559-23-26 05:50:00 Test Item Value Reference Range Interpretation Comments RBC X 10x6 (test code = RBC X 10x6) 3.25 4.20-5.40 L [facility] CenterJkskzelEIIQFEIGUP0582-79-05 05:50:00 Test Item Value Reference Range Interpretation Comments WBC X 10x3 (test code = WBC X 10x3) 16.9 3.7-10.4 H [facility] CenterVadbmfpXSMRTCWLAI9468-03-80 05:50:00 Test Item Value Reference Range Interpretation Comments Hct (test code = Hct) 29.5 36.0-48.0 L [facility] CenterLomntfnOGZYTVDZLZ7778-46-61 05:50:00 Test Item Value Reference Range Interpretation Comments MCV (test code = MCV) 90.8 81.0-99.0 N [facility] CenterRxvdgksRFEQSIQCJE4812-14-67 05:50:00 Test Item Value Reference Range Interpretation Comments MPV (test code = MPV) 9.2 7.4-10.4 N [facility] CenterMnbydczGRFBHUKHFC9764-07-04 05:50:00 Test Item Value Reference Range Interpretation Comments RDW (test code = RDW) 11.9 11.5-14.5 N [facility] CenterBqvznwkLBUMKWYMWA7546-82-60 05:50:00 Test Item Value Reference Range Interpretation Comments MCHC (test code = MCHC) 33.1 32.0-36.0 N [facility] CenterZbomjroVKVOTRNWNM2992-97-55 05:50:00 Test Item Value Reference Range Interpretation Comments Platelet (test code = Platelet) 213 133-450 N [facility] CenterVsedckkRZNPTQLHXU1436-19-10 05:50:00 Test Item Value Reference Range Interpretation Comments MCH (test code = MCH) 30.0 pg 27.0-31.0 N [facility] HospitalYktizxxNVZENKXEA1823-53-60 05:50:00 Test Item Value Reference Range Interpretation Comments Magnesium Lvl (test code = Magnesium 1.7 1.8-2.4 L Lvl) [facility] HospitalBrvxqkrGVXCMPFGF0019-14-12 05:50:00 Test Item Value Reference Range Interpretation Comments eGFR (test code = eGFR) 104 [facility] HospitalVjiknqoOMYKBBAVZ6315-97-06 05:50:00 Test Item Value Reference Range Interpretation Comments AGAP (test code = AGAP) 17.7 10.0-20.0 N [facility] HospitalSljgxxqCAHUFXUDL7374-88-58 05:50:00 Test Item Value Reference Range Interpretation Comments Calcium Lvl (test code = Calcium Lvl) 8.1 8.5-10.5 L [facility] HospitalAdeqhdpKODQZHEJQ3579-26-79 05:50:00 Test Item Value Reference Range Interpretation Comments CO2 (test code = CO2) 23 24-32 L [facility] HospitalGdqjuebEIRYNMEXG1842-57-87 05:50:00 Test Item Value Reference Range Interpretation Comments Chloride Lvl (test code = Chloride Lvl) 108 95-109 N [facility] HospitalArgntqrRGYZPMIZU8066-21-00 05:50:00 Test Item Value Reference Range Interpretation Comments Potassium Lvl (test code = Potassium 3.7 3.5-5.1 N Lvl) [facility] HospitalWxfihmpBDESWWKVQ9248-22-71 05:50:00 Test Item Value Reference Range Interpretation Comments Sodium Lvl (test code = Sodium Lvl) 145 135-145 N [facility] HospitalTxubfeeUTAREQXMM9962-84-86 05:50:00 Test Item Value Reference Range Interpretation Comments Creatinine Lvl (test code = Creatinine 0.8 0.5-1.4 N Lvl) [facility] HospitalHvziactDMVBMZTLT5121-17-43 05:50:00 Test Item Value Reference Range Interpretation Comments BUN (test code = BUN) 9 7-22 N [facility] HospitalSzqtmgwWEQVWMTGG9315-45-91 05:50:00 Test Item Value Reference Range Interpretation Comments Glucose Lvl (test code = Glucose Lvl) 118 70-99 H [facility] HospitalAxjfdegOWSNSGZSD2705-56-56 05:50:00 Test Item Value Reference Range Interpretation Comments Phosphorus (test code = Phosphorus) 2.5 2.5-4.5 N [facility] HospitalEthhhlgYQHENSINJ5800-59-25 05:50:00 Test Item Value Reference Range Interpretation Comments Ca Ion WB (test code = Ca Ion WB) 1.13 1.05-1.25 N [facility] HospitalAwnfipwZPGCPVBLI6832-11-70 05:50:00 Test Item Value Reference Range Interpretation Comments Ca Norm WB (test code = Ca Norm WB) 1.13 1.05-1.25 N [facility] CenterTpppnfoDLMHVAYLUW6535-41-21 05:50:00 Test Item Value Reference Range Interpretation Comments Monocytes # (test code 1.4 See_Comment H [Aut omated message] The = Monocytes #) system which generated this result tra nsmitted reference range : <=0.8. The reference r joan was not used to int erpret this result as normal/abnormal . [facility] CenterHrrfcrjVGTRIMGMRW8020-72-62 05:50:00 Test Item Value Reference Range Interpretation Comments Lymphocytes # (test code = Lymphocytes 1.6 1.0-5.5 N #) [facility] CenterIbrywkvJYEEUESYWH0439-88-48 05:50:00 Test Item Value Reference Range Interpretation Comments Segs-Bands # (test code = Segs-Bands #) 13.8 1.5-8.1 H [facility] CenterLvbkrgnBQXPFYUEIL4450-43-55 05:50:00 Test Item Value Reference Range Interpretation Comments Basophils (test code = 0.1 See_Comment N [Aut omated message] The Basophils) system which ge nerated this result tra nsmitted reference range : <=1.0. The reference r joan was not used to int erpret this result as normal/abnormal . [facility] CenterSxssemhXRSAIKIFNT1732-17-41 05:50:00 Test Item Value Reference Range Interpretation Comments Monocytes (test code = Monocytes) 8.3 2.0-12.0 N [facility] CenterYqahaszUHUQLJZQSE3493-11-67 05:50:00 Test Item Value Reference Range Interpretation Comments Lymphocytes (test code = Lymphocytes) 9.6 20.0-40.0 L [facility] CenterHxvimooEQMHBSEKUO2027-52-60 05:50:00 Test Item Value Reference Range Interpretation Comments Segs (test code = Segs) 82.0 45.0-75.0 H [facility] CenterOsozselNNQWWUORKE2385-09-49 05:50:00 Test Item Value Reference Range Interpretation Comments INR (test code = INR) 1.18 0.85-1.17 H [facility] CenterPeqdbwiXCROLQHFGD7134-18-49 05:50:00 Test Item Value Reference Range Interpretation Comments PROTIME (test code = PROTIME) 14.9 s 12.0-14.7 H [facility] CenterVmmblaoPYAIFJVIOH5799-68-71 05:50:00 Test Item Value Reference Range Interpretation Comments aPTT (test code = aPTT) 26.1 s 22.9-35.8 N [facility] CenterVphzyyaKMQUGNEFXN5189-76-06 05:50:00 Test Item Value Reference Range Interpretation Comments Hgb (test code = Hgb) 9.8 12.0-16.0 L [facility] CenterKtdjpxbZGNSKBLTKF8298-53-07 05:50:00 Test Item Value Reference Range Interpretation Comments RBC X 10x6 (test code = RBC X 10x6) 3.25 4.20-5.40 L [facility] CenterPvkmimjNUXNHUNWOA1390-75-13 05:50:00 Test Item Value Reference Range Interpretation Comments WBC X 10x3 (test code = WBC X 10x3) 16.9 3.7-10.4 H [facility] CenterTjgkngsNWHANVWRKA6975-25-87 05:50:00 Test Item Value Reference Range Interpretation Comments Hct (test code = Hct) 29.5 36.0-48.0 L [facility] CenterFdqrtdoUFHKBBRYVZ6539-76-63 05:50:00 Test Item Value Reference Range Interpretation Comments MCV (test code = MCV) 90.8 81.0-99.0 N [facility] CenterPuaamjnGPLRGDUOST3724-57-02 05:50:00 Test Item Value Reference Range Interpretation Comments MPV (test code = MPV) 9.2 7.4-10.4 N [facility] CenterAfjcinvYGNKMAYFHZ6142-35-88 05:50:00 Test Item Value Reference Range Interpretation Comments RDW (test code = RDW) 11.9 11.5-14.5 N [facility] CenterVzlnmhdSCBEGRTSKZ0213-31-11 05:50:00 Test Item Value Reference Range Interpretation Comments MCHC (test code = MCHC) 33.1 32.0-36.0 N [facility] CenterSmpngnkVBDMZHLVAT9783-70-81 05:50:00 Test Item Value Reference Range Interpretation Comments Platelet (test code = Platelet) 213 133-450 N [facility] CenterZxuemnqSBDFBYBROE5829-25-99 05:50:00 Test Item Value Reference Range Interpretation Comments MCH (test code = MCH) 30.0 pg 27.0-31.0 N [facility] GLUCOSE LISYIMZ7563-88-04 04:59:00 Test Item Value Reference Range Interpretation Comments Gluc POC Comment 1 (test code = Notify RN/MD Gluc POC Comment 1) [facility] GLUCOSE LFLGBSQ2494-10-27 04:59:00 Test Item Value Reference Range Interpretation Comments Gluc POC Comment 1 (test code = Notify RN/MD Gluc POC Comment 1) [facility] RUJKSZPW2848-89-09 21:58:00 Test Item Value Reference Range Interpretation Comments MRSA by PCR (test Negative 1(05/09/2013 N code = MRSA by PCR) 16:58:00) [facility] HospitalDqqgrjnUSYCYTMLS2166-48-17 21:58:00 Test Item Value Reference Range Interpretation Comments eGFR (test code = eGFR) 79 [facility] HospitalNffzdrdXXLDAUZML6465-58-08 21:58:00 Test Item Value Reference Range Interpretation Comments AGAP (test code = AGAP) 20.7 10.0-20.0 H [facility] HospitalPazucpiJNDKLEXBO1600-55-33 21:58:00 Test Item Value Reference Range Interpretation Comments Chloride Lvl (test code = Chloride Lvl) 106 95-109 N [facility] HospitalGambjpdEZJQZHWZO8022-70-47 21:58:00 Test Item Value Reference Range Interpretation Comments CO2 (test code = CO2) 19 24-32 L [facility] HospitalYiuthgbQDKPOJLFQ5697-66-42 21:58:00 Test Item Value Reference Range Interpretation Comments Calcium Lvl (test code = Calcium Lvl) 8.0 8.5-10.5 L [facility] HospitalBctnvliXBQPYHTKE9435-56-06 21:58:00 Test Item Value Reference Range Interpretation Comments BUN (test code = BUN) 12 7-22 N [facility] HospitalYimhfekFSRQGFUWM7893-25-87 21:58:00 Test Item Value Reference Range Interpretation Comments Creatinine Lvl (test code = Creatinine 1.0 0.5-1.4 N Lvl) [facility] HospitalAiidnlmKAKMFPDAZ9871-85-28 21:58:00 Test Item Value Reference Range Interpretation Comments Glucose Lvl (test code = Glucose Lvl) 198 70-99 H [facility] HospitalFplgtugLOYLGZEYR5012-91-31 21:58:00 Test Item Value Reference Range Interpretation Comments Sodium Lvl (test code = Sodium Lvl) 142 135-145 N [facility] HospitalGwfibfxPHHEXVJLW8150-69-88 21:58:00 Test Item Value Reference Range Interpretation Comments Potassium Lvl (test code = Potassium 3.7 3.5-5.1 N Lvl) [facility] HospitalDbvfhnaHRJQYQYTA8850-66-98 21:58:00 Test Item Value Reference Range Interpretation Comments Phosphorus (test code = Phosphorus) 3.4 2.5-4.5 N [facility] HospitalGrucrixXSXOUPNKL3077-69-93 21:58:00 Test Item Value Reference Range Interpretation Comments Magnesium Lvl (test code = Magnesium 1.4 1.8-2.4 L Lvl) [facility]nbFOBBONNDWY4282-47-[facility] 21:58:00 Test Item Value Reference Range Interpretation Comments MPV (test code = MPV) 9.6 7.4-10.4 N [facility] CenterTixkbkgMJIFHRQZHT7276-02-38 21:58:00 Test Item Value Reference Range Interpretation Comments MCV (test code = MCV) 91.9 81.0-99.0 N [facility] CenterZupajhvEQMQXRIKAS6672-05-25 21:58:00 Test Item Value Reference Range Interpretation Comments MCH (test code = MCH) 31.0 pg 27.0-31.0 N [facility] CenterJiybtjdKESDYVKSCS5326-69-83 21:58:00 Test Item Value Reference Range Interpretation Comments MCHC (test code = MCHC) 33.7 32.0-36.0 N [facility] CenterThaftwiVZECMDFCOS8323-77-43 21:58:00 Test Item Value Reference Range Interpretation Comments RDW (test code = RDW) 12.1 11.5-14.5 N [facility] CenterGikilitIQUAUPQHPA5923-85-45 21:58:00 Test Item Value Reference Range Interpretation Comments Platelet (test code = Platelet) 253 133-450 N [facility] CenterSexhmeeSAYMBFMMAY5522-75-91 21:58:00 Test Item Value Reference Range Interpretation Comments WBC X 10x3 (test code = WBC X 10x3) 20.8 3.7-10.4 H [facility] CenterFgpfxgfNKGBQQMZAP3946-06-66 21:58:00 Test Item Value Reference Range Interpretation Comments RBC X 10x6 (test code = RBC X 10x6) 3.54 4.20-5.40 L [facility] CenterKchlgkkDJDXWCJWBQ2295-46-06 21:58:00 Test Item Value Reference Range Interpretation Comments Hgb (test code = Hgb) 11.0 12.0-16.0 L [facility] CenterCtrtkbbSVPPYJTHKH0096-64-12 21:58:00 Test Item Value Reference Range Interpretation Comments Hct (test code = Hct) 32.5 36.0-48.0 L [facility] CenterWdqbsbtCTATBNFSXW8856-02-50 21:58:00 Test Item Value Reference Range Interpretation Comments Lymphocytes # (test code = Lymphocytes 1.1 1.0-5.5 N #) [facility] CenterDliymsmTIDSNKBCFE6036-81-18 21:58:00 Test Item Value Reference Range Interpretation Comments Monocytes # (test code 0.3 See_Comment N [Aut omated message] The = Monocytes #) system which generated this result tra nsmitted reference range : <=0.8. The reference r joan was not used to int erpret this result as normal/abnormal . [facility] CenterKfzbvkvDATJBGNFWF6647-38-07 21:58:00 Test Item Value Reference Range Interpretation Comments Segs (test code = Segs) 93.0 45.0-75.0 H [facility]XocaokkNCGWQQDLLX5412-60-99 21:58:00 Test Item Value Reference Range Interpretation Comments Lymphocytes (test code = Lymphocytes) 5.3 20.0-40.0 L [facility] CenterLbkiajyGCWCAMXSEU2391-61-76 21:58:00 Test Item Value Reference Range Interpretation Comments Basophils (test code = 0.1 See_Comment N [Aut omated message] The Basophils) system which ge nerated this result tra nsmitted reference range : <=1.0. The reference r joan was not used to int erpret this result as normal/abnormal . [facility] CenterLmpndinBHFHPLBZRF1507-34-93 21:58:00 Test Item Value Reference Range Interpretation Comments Monocytes (test code = Monocytes) 1.6 2.0-12.0 L [facility] CenterQknxdmgPOIIZVJPQM2536-55-42 21:58:00 Test Item Value Reference Range Interpretation Comments Segs-Bands # (test code = Segs-Bands #) 19.3 1.5-8.1 H [facility] - PGOGRJWL4372-97-36 21:58:00 Test Item Value Reference Range Interpretation Comments MRSA by PCR (test Negative 1(05/09/2013 N code = MRSA by PCR) 16:58:00) [facility]YdunxmoNOTVHXTJC8555-27-59 21:58:00 Test Item Value Reference Range Interpretation Comments eGFR (test code = eGFR) 79 [facility] HospitalEislyhhNACDSWRBZ9700-13-63 21:58:00 Test Item Value Reference Range Interpretation Comments AGAP (test code = AGAP) 20.7 10.0-20.0 H [facility]FdpwgqcLNAZLDFGD1085-59-30 21:58:00 Test Item Value Reference Range Interpretation Comments Chloride Lvl (test code = Chloride Lvl) 106 95-109 N [facility] HospitalGhjfcduEEJRBHCKT2485-38-09 21:58:00 Test Item Value Reference Range Interpretation Comments CO2 (test code = CO2) 19 24-32 L [facility] HospitalHoalsiyTOQBPLGQM1700-32-29 21:58:00 Test Item Value Reference Range Interpretation Comments Calcium Lvl (test code = Calcium Lvl) 8.0 8.5-10.5 L [facility] HospitalMgknjwhCHNEWKANG7547-21-85 21:58:00 Test Item Value Reference Range Interpretation Comments BUN (test code = BUN) 12 7-22 N [facility] HospitalVbotsftLOPORLQGD7031-94-72 21:58:00 Test Item Value Reference Range Interpretation Comments Creatinine Lvl (test code = Creatinine 1.0 0.5-1.4 N Lvl) [facility] HospitalUfdwcbkVGIAUWXLC5685-13-72 21:58:00 Test Item Value Reference Range Interpretation Comments Glucose Lvl (test code = Glucose Lvl) 198 70-99 H [facility] HospitalRtrvcpiMHAUAQWYU3958-51-89 21:58:00 Test Item Value Reference Range Interpretation Comments Sodium Lvl (test code = Sodium Lvl) 142 135-145 N [facility] HospitalTuekayyMMTILARTE4668-37-82 21:58:00 Test Item Value Reference Range Interpretation Comments Potassium Lvl (test code = Potassium 3.7 3.5-5.1 N Lvl) [facility] HospitalLdfqejhDQXQYZFJU7904-09-47 21:58:00 Test Item Value Reference Range Interpretation Comments Phosphorus (test code = Phosphorus) 3.4 2.5-4.5 N [facility] HospitalIuiehtjZPYVFWBJF4507-03-17 21:58:00 Test Item Value Reference Range Interpretation Comments Magnesium Lvl (test code = Magnesium 1.4 1.8-2.4 L Lvl) [facility]HihkkiyEOSSZLYEPK4058-11-44 21:58:00 Test Item Value Reference Range Interpretation Comments MPV (test code = MPV) 9.6 7.4-10.4 N [facility] CenterYhctizhDVJDVGIPJW0185-70-30 21:58:00 Test Item Value Reference Range Interpretation Comments MCV (test code = MCV) 91.9 81.0-99.0 N [facility] CenterIbzhfdzBVLJTBICRG8794-05-40 21:58:00 Test Item Value Reference Range Interpretation Comments MCH (test code = MCH) 31.0 pg 27.0-31.0 N [facility] CenterFjtrstmGCQWFWFJGL6228-30-36 21:58:00 Test Item Value Reference Range Interpretation Comments MCHC (test code = MCHC) 33.7 32.0-36.0 N [facility] CenterRacbapbVSXBAJHFOB3364-63-21 21:58:00 Test Item Value Reference Range Interpretation Comments RDW (test code = RDW) 12.1 11.5-14.5 N [facility] CenterHqredayBLAGYMXPBH3220-33-60 21:58:00 Test Item Value Reference Range Interpretation Comments Platelet (test code = Platelet) 253 133-450 N [facility] CenterDtkmklmKALSODIFJD8276-90-93 21:58:00 Test Item Value Reference Range Interpretation Comments WBC X 10x3 (test code = WBC X 10x3) 20.8 3.7-10.4 H [facility] CenterOkfoljvEEVKUXWHEH2100-01-40 21:58:00 Test Item Value Reference Range Interpretation Comments RBC X 10x6 (test code = RBC X 10x6) 3.54 4.20-5.40 L [facility] CenterUpnltfxRXSFJVKMSK3218-25-52 21:58:00 Test Item Value Reference Range Interpretation Comments Hgb (test code = Hgb) 11.0 12.0-16.0 L [facility] CenterOdmvgjsIJSEHKCINV3542-26-41 21:58:00 Test Item Value Reference Range Interpretation Comments Hct (test code = Hct) 32.5 36.0-48.0 L [facility] CenterCcvnaueNZJUEJKZTR0476-84-12 21:58:00 Test Item Value Reference Range Interpretation Comments Lymphocytes # (test code = Lymphocytes 1.1 1.0-5.5 N #) [facility] CenterYicorjgHXZZIKQUFB0827-42-20 21:58:00 Test Item Value Reference Range Interpretation Comments Monocytes # (test code 0.3 See_Comment N [Aut omated message] The = Monocytes #) system which generated this result tra nsmitted reference range : <=0.8. The reference r joan was not used to int erpret this result as normal/abnormal . [facility] CenterYqqhsycEGWIPRQXNN6687-76-47 21:58:00 Test Item Value Reference Range Interpretation Comments Segs (test code = Segs) 93.0 45.0-75.0 H [facility] CenterLplcvpgOTAAGKZXSL7036-21-53 21:58:00 Test Item Value Reference Range Interpretation Comments Lymphocytes (test code = Lymphocytes) 5.3 20.0-40.0 L [facility] CenterTfqwhezXQDWMAEKQV2683-46-69 21:58:00 Test Item Value Reference Range Interpretation Comments Basophils (test code = 0.1 See_Comment N [Aut omated message] The Basophils) system which ge nerated this result tra nsmitted reference range : <=1.0. The reference r joan was not used to int erpret this result as normal/abnormal . [facility] CenterRoqeojzXJWDLJXUZX0100-26-31 21:58:00 Test Item Value Reference Range Interpretation Comments Monocytes (test code = Monocytes) 1.6 2.0-12.0 L [facility] CenterHufcfloQCEXKNSNEA6227-00-31 21:58:00 Test Item Value Reference Range Interpretation Comments Segs-Bands # (test code = Segs-Bands #) 19.3 1.5-8.1 H [facility] HospitalNeqqevrNOOUUVGSL2419-14-60 15:33:00 Test Item Value Reference Range Interpretation Comments POC A Glu (test code = POC A Glu) 109 70-99 H [facility] HospitalWoholboKFGOHLUXW8279-98-97 15:33:00 Test Item Value Reference Range Interpretation Comments POC A LA (test code = POC A LA) 1.6 0.5-2.2 N [facility] HospitalBxxnmbxMEYSUPPSP4272-18-67 15:33:00 Test Item Value Reference Range Interpretation Comments POC A HCO3 (test code = POC A HCO3) 26 22-26 N [facility] HospitalBkaebnbFSGWCFMUQ5599-26-31 15:33:00 Test Item Value Reference Range Interpretation Comments POC A BE (test code = 0 See_Comment N [Auto mated message] The POC A BE) system which ge nerated this result transmit richard reference range : <=2. The reference range was not used to interpr et this result as robbie l/abnormal. [facility] HospitalWfeulaqYVFQKONVC0496-96-02 15:33:00 Test Item Value Reference Range Interpretation Comments POC A O2 Sat (test code = POC A O2 Sat) 100.0 95.0-100.0 N [facility] HospitalMzvvsxlNKQXWTFZV9507-05-99 15:33:00 Test Item Value Reference Range Interpretation Comments POC A Ca Ion (test code = POC A Ca Ion) 1.09 1.05-1.25 N [facility] HospitalByludtlJROXHLCTR2322-92-05 15:33:00 Test Item Value Reference Range Interpretation Comments POC A pH (test code = POC A pH) 7.34 7.35-7.45 L [facility] HospitalCumjmbsFCRSMVJIJ0996-15-59 15:33:00 Test Item Value Reference Range Interpretation Comments POC A PO2 (test code = POC A PO2) 417 80-100 H [facility] HospitalJbdpkmzPQDCJWVLF5104-33-04 15:33:00 Test Item Value Reference Range Interpretation Comments POC A PCO2 (test code = POC A PCO2) 48 35-45 H [facility] HospitalGzvvfntNSSVGAQWJ7365-74-87 15:33:00 Test Item Value Reference Range Interpretation Comments POC A Temp (test code = POC A Temp) 37.0 [facility] HospitalSrcrpthZQWWSKEDO5827-00-41 15:33:00 Test Item Value Reference Range Interpretation Comments POC A Source (test code = POC A Source) ART [facility] HospitalYocceevWAPFYNHJW2899-03-86 15:33:00 Test Item Value Reference Range Interpretation Comments POC A Hct (test code = POC A Hct) 34.0 36.0-48.0 L [facility] HospitalGqwanoaAYPWALKXD4738-61-98 15:33:00 Test Item Value Reference Range Interpretation Comments POC A Na (test code = POC A Na) 137 135-145 N [facility] HospitalKhvvvrxZMLAFGZCU8333-32-20 15:33:00 Test Item Value Reference Range Interpretation Comments POC A K (test code = POC A K) 3.9 3.5-5.1 N [facility] HospitalUqenojfJMVHDFOTB9476-89-56 15:33:00 Test Item Value Reference Range Interpretation Comments POC A Glu (test code = POC A Glu) 109 70-99 H [facility] HospitalDbntwdvDJZHREMLP2183-95-65 15:33:00 Test Item Value Reference Range Interpretation Comments POC A LA (test code = POC A LA) 1.6 0.5-2.2 N [facility] HospitalZsnwpwaCYALEXGQH6748-09-47 15:33:00 Test Item Value Reference Range Interpretation Comments POC A HCO3 (test code = POC A HCO3) 26 22-26 N [facility] HospitalSchvviuFXDBPJBHY1646-44-51 15:33:00 Test Item Value Reference Range Interpretation Comments POC A BE (test code = 0 See_Comment N [Auto mated message] The POC A BE) system which ge nerated this result transmit richard reference range : <=2. The reference range was not used to interpr et this result as robbie l/abnormal. [facility] HospitalDioabtvISUKZGSOG6969-88-93 15:33:00 Test Item Value Reference Range Interpretation Comments POC A O2 Sat (test code = POC A O2 Sat) 100.0 95.0-100.0 N [facility] HospitalEmdnetaOVYHSXQVP1327-07-58 15:33:00 Test Item Value Reference Range Interpretation Comments POC A Ca Ion (test code = POC A Ca Ion) 1.09 1.05-1.25 N [facility] HospitalUodhytyFCBSZYBEC3667-17-11 15:33:00 Test Item Value Reference Range Interpretation Comments POC A pH (test code = POC A pH) 7.34 7.35-7.45 L [facility] HospitalChhchxvHZMRPSQYS3351-18-32 15:33:00 Test Item Value Reference Range Interpretation Comments POC A PO2 (test code = POC A PO2) 417 80-100 H [facility] HospitalUaykkcfMUARVEBTA5553-22-95 15:33:00 Test Item Value Reference Range Interpretation Comments POC A PCO2 (test code = POC A PCO2) 48 35-45 H [facility] HospitalBlekjonBMXNBCJJN7583-87-79 15:33:00 Test Item Value Reference Range Interpretation Comments POC A Temp (test code = POC A Temp) 37.0 [facility] HospitalQixwzyxHBOZEANPP8847-87-20 15:33:00 Test Item Value Reference Range Interpretation Comments POC A Source (test code = POC A Source) ART [facility] HospitalQztkageFUPDSFWCS0085-03-91 15:33:00 Test Item Value Reference Range Interpretation Comments POC A Hct (test code = POC A Hct) 34.0 36.0-48.0 L [facility] HospitalTathmlkPHNTGCNDH8278-88-23 15:33:00 Test Item Value Reference Range Interpretation Comments POC A Na (test code = POC A Na) 137 135-145 N [facility] HospitalBkaovvfFSOVQQSOO1512-50-84 15:33:00 Test Item Value Reference Range Interpretation Comments POC A K (test code = POC A K) 3.9 3.5-5.1 N [facility] HospitalVygxxkfHSHFHFSZS2882-75-30 14:10:00 Test Item Value Reference Range Interpretation Comments POC A HCO3 (test code = POC A HCO3) 24 22-26 N [facility] HospitalRlbwupwRWZMJKVXR7530-28-27 14:10:00 Test Item Value Reference Range Interpretation Comments POC A PO2 (test code = POC A PO2) 332 80-100 H [facility] HospitalTygioxrFWUZQHAAT5937-92-99 14:10:00 Test Item Value Reference Range Interpretation Comments POC A PCO2 (test code = POC A PCO2) 41 35-45 N [facility] HospitalVujmlskFGDSXHBYW3302-60-79 14:10:00 Test Item Value Reference Range Interpretation Comments POC A LA (test code = POC A LA) 2.1 0.5-2.2 N [facility] HospitalDcqsjekUIOXXKWYP1045-50-13 14:10:00 Test Item Value Reference Range Interpretation Comments POC A Glu (test code = POC A Glu) 132 70-99 H [facility] HospitalTsjecorCEJMOTNMU0971-17-68 14:10:00 Test Item Value Reference Range Interpretation Comments POC A Hct (test code = POC A Hct) 39.0 36.0-48.0 N [facility] HospitalClklhbgFFGHMSKTX5590-10-18 14:10:00 Test Item Value Reference Range Interpretation Comments POC A K (test code = POC A K) 3.5 3.5-5.1 N [facility] HospitalNdbaatqZBUGRJQFA9899-73-93 14:10:00 Test Item Value Reference Range Interpretation Comments POC A Na (test code = POC A Na) 138 135-145 N [facility] HospitalWwoujeeLRHFGFYTG0088-46-18 14:10:00 Test Item Value Reference Range Interpretation Comments POC A Ca Ion (test code = POC A Ca Ion) 1.12 1.05-1.25 N [facility] HospitalOuzuusgKJRFGFMQI1483-59-22 14:10:00 Test Item Value Reference Range Interpretation Comments POC A O2 Sat (test code = POC A O2 Sat) 100.0 95.0-100.0 N [facility] HospitalMepoiusKFAUFVOTM0623-20-25 14:10:00 Test Item Value Reference Range Interpretation Comments POC A BE (test code = -1 See_Comment N [Auto mated message] The POC A BE) system which ge nerated this result transmit richard reference range : <=2. The reference range was not used to interpr et this result as robbie l/abnormal. [facility] HospitalGjfxmwvGKYVPWDXK7588-07-81 14:10:00 Test Item Value Reference Range Interpretation Comments POC A Source (test code = POC A Source) ART [facility] HospitalZvjitkzQESDTGGQG5800-15-22 14:10:00 Test Item Value Reference Range Interpretation Comments POC A pH (test code = POC A pH) 7.38 7.35-7.45 N [facility] HospitalHltlwgjTFVFAIVTH5063-34-63 14:10:00 Test Item Value Reference Range Interpretation Comments POC A Temp (test code = POC A Temp) 37.0 [facility] HospitalInyawttIOGSXHIXO2136-04-18 14:10:00 Test Item Value Reference Range Interpretation Comments POC A HCO3 (test code = POC A HCO3) 24 22-26 N [facility] HospitalXzxgqlaHHULGUAIY6127-68-60 14:10:00 Test Item Value Reference Range Interpretation Comments POC A PO2 (test code = POC A PO2) 332 80-100 H [facility] HospitalXhrbjzzPCRBGVESR0675-43-59 14:10:00 Test Item Value Reference Range Interpretation Comments POC A PCO2 (test code = POC A PCO2) 41 35-45 N [facility] HospitalCvrhzxvUKPSAMZMS9824-22-56 14:10:00 Test Item Value Reference Range Interpretation Comments POC A LA (test code = POC A LA) 2.1 0.5-2.2 N [facility] HospitalOgdeabtBEINGJSLU7700-90-03 14:10:00 Test Item Value Reference Range Interpretation Comments POC A Glu (test code = POC A Glu) 132 70-99 H [facility] HospitalJkwjwakMKAIIFSKN6179-50-71 14:10:00 Test Item Value Reference Range Interpretation Comments POC A Hct (test code = POC A Hct) 39.0 36.0-48.0 N [facility] HospitalTqdgzegXPLRMNLMD8366-90-66 14:10:00 Test Item Value Reference Range Interpretation Comments POC A K (test code = POC A K) 3.5 3.5-5.1 N [facility] HospitalWwqcigqSFKNTBNCR1287-12-99 14:10:00 Test Item Value Reference Range Interpretation Comments POC A Na (test code = POC A Na) 138 135-145 N [facility] HospitalLdgbzfqOZJKUHQTI1844-16-01 14:10:00 Test Item Value Reference Range Interpretation Comments POC A Ca Ion (test code = POC A Ca Ion) 1.12 1.05-1.25 N [facility] HospitalUievrhfLNIIERIVP5283-44-35 14:10:00 Test Item Value Reference Range Interpretation Comments POC A O2 Sat (test code = POC A O2 Sat) 100.0 95.0-100.0 N [facility] HospitalIeranraCMNAIZQMH2650-59-22 14:10:00 Test Item Value Reference Range Interpretation Comments POC A BE (test code = -1 See_Comment N [Auto mated message] The POC A BE) system which ge nerated this result transmit richard reference range : <=2. The reference range was not used to interpr et this result as robbie l/abnormal. [facility] YipgtefBBCKOAYOQ2573-04-44 14:10:00 Test Item Value Reference Range Interpretation Comments POC A Source (test code = POC A Source) [facility]LvqozwpXDAJSLOOP9255-31-82 14:10:00 Test Item Value Reference Range Interpretation Comments POC A pH (test code = POC A pH) 7.38 7.35-7.45 N [facility] HospitalUxnozpxUBQLPGCJC3949-49-31 14:10:00 Test Item Value Reference Range Interpretation Comments POC A Temp (test code = POC A Temp) 37.0 [facility] BZWGMIS7692-24-44 11:40:00 Test Item Value Reference Range Interpretation Comments Antibody Scrn (test Negative (05/09/2013 N code = Antibody Scrn) 06:40:00) [facility] CVZDHNJ5746-11-81 11:40:00 Test Item Value Reference Range Interpretation Comments ABO/Rh (test code = ABO/Rh) A POS [facility] [employer] EPFBRLG3890-80-78 11:40:00 Test Item Value Reference Range Interpretation Comments Antibody Scrn (test Negative (05/09/2013 N code = Antibody Scrn) 06:40:00) [facility] [employer] FHAAHRG3556-26-83 11:40:00 Test Item Value Reference Range Interpretation Comments ABO/Rh (test code = ABO/Rh) A POS [facility] JdamlrbBPWEJMVCX9037-94-91 11:39:40 Test Item Value Reference Range Interpretation Comments A/G Ratio (test code = A/G Ratio) 1.3 0.7-1.6 N [facility] OpsskhhEANLLMYXL3484-39-59 11:39:40 Test Item Value Reference Range Interpretation Comments Globulin (test code = Globulin) 3.6 2.0-4.0 N [facility] DlzbpckAQWWWPPTN3677-10-67 11:39:40 Test Item Value Reference Range Interpretation Comments B/C Ratio (test code = B/C Ratio) 16 6-25 N [facility] XzxswvrUYJNNZQKA1125-43-20 11:39:40 Test Item Value Reference Range Interpretation Comments Alk Phos (test code = Alk Phos) 64 39-136 N [facility] QqjpomyCCLIUZTMB0634-28-82 11:39:40 Test Item Value Reference Range Interpretation Comments Bili Total (test code = Bili Total) 0.7 0.2-1.3 N [facility] HospitalLwrvwudZRNBFSFDX4395-07-95 11:39:40 Test Item Value Reference Range Interpretation Comments ASPARTATE TRANSAMINASE 13 See_Comment N [Aut omated message] (test code = ASPARTATE The s ystem which TRANSAMINASE) generated this result transmitted ref erence range: <=37. Th e reference range was not used to interpr et this result as normal/abnormal . [facility] HospitalHvakjfoQXWQAFAKC6347-73-32 11:39:40 Test Item Value Reference Range Interpretation Comments Total Protein (test code = Total 8.4 6.4-8.4 N Protein) [facility] HospitalUokmjssOFUBMJADC6999-72-80 11:39:40 Test Item Value Reference Range Interpretation Comments ALANINE AMINOTRANSFERASE 24 See_Comment N [A utomated message] (test code = ALANINE The sys tem which AMINOTRANSFERASE) generated this result transmitted ref erence range: <=65. Th e reference range was not used to int erpret this result as normal/abnormal . [facility] HospitalOuopkvgRSIESOKTA5180-90-27 11:39:40 Test Item Value Reference Range Interpretation Comments Albumin Lvl (test code = Albumin Lvl) 4.8 3.5-5.0 N [facility] CenterConzkdhIGRZWMRZQW2296-42-33 11:39:40 Test Item Value Reference Range Interpretation Comments aPTT (test code = aPTT) 28.7 s 22.9-35.8 N [facility] CenterPsvjumyDORNSQXQRE0593-79-73 11:39:40 Test Item Value Reference Range Interpretation Comments INR (test code = INR) 1.00 0.85-1.17 N [facility] CenterTldtfipRKFMWBWXXY6075-20-06 11:39:40 Test Item Value Reference Range Interpretation Comments PROTIME (test code = PROTIME) 13.1 s 12.0-14.7 N [facility] HospitalYxciuavPTURQQTQJ6502-44-85 11:39:40 Test Item Value Reference Range Interpretation Comments A/G Ratio (test code = A/G Ratio) 1.3 0.7-1.6 N [facility] HospitalOijtmpiIBKRGYQEF7343-57-15 11:39:40 Test Item Value Reference Range Interpretation Comments Globulin (test code = Globulin) 3.6 2.0-4.0 N [facility] HospitalButllnaWVLCHIKOD9841-37-94 11:39:40 Test Item Value Reference Range Interpretation Comments B/C Ratio (test code = B/C Ratio) 16 6-25 N [facility] HospitalHjbljnmCFARVHBAJ3389-17-01 11:39:40 Test Item Value Reference Range Interpretation Comments Alk Phos (test code = Alk Phos) 64 39-136 N [facility] HospitalQzdvyymADILXOJRZ6575-81-78 11:39:40 Test Item Value Reference Range Interpretation Comments Bili Total (test code = Bili Total) 0.7 0.2-1.3 N [facility] HospitalLearnhcZOOCWJCNI3900-00-51 11:39:40 Test Item Value Reference Range Interpretation Comments ASPARTATE TRANSAMINASE 13 See_Comment N [Aut omated message] (test code = ASPARTATE The s ystem which TRANSAMINASE) generated this result transmitted ref erence range: <=37. Th e reference range was not used to interpr et this result as normal/abnormal . [facility] HospitalAixrlvtYENSDHKUN0281-70-58 11:39:40 Test Item Value Reference Range Interpretation Comments Total Protein (test code = Total 8.4 6.4-8.4 N Protein) [facility] HospitalJngdppiDOMPKMBUB5732-68-02 11:39:40 Test Item Value Reference Range Interpretation Comments ALANINE AMINOTRANSFERASE 24 See_Comment N [A utomated message] (test code = ALANINE The sys tem which AMINOTRANSFERASE) generated this result transmitted ref erence range: <=65. Th e reference range was not used to int erpret this result as normal/abnormal . [facility] HospitalDhpkzrrLMAQHSVYU5010-71-47 11:39:40 Test Item Value Reference Range Interpretation Comments Albumin Lvl (test code = Albumin Lvl) 4.8 3.5-5.0 N [facility] CenterVjlrtnzWIIHCCAIVG4103-33-26 11:39:40 Test Item Value Reference Range Interpretation Comments aPTT (test code = aPTT) 28.7 s 22.9-35.8 N [facility] CenterIvdjhuoHTUWFQUZTI6518-53-55 11:39:40 Test Item Value Reference Range Interpretation Comments INR (test code = INR) 1.00 0.85-1.17 N [facility] CenterVdwnwpmDEMNGHXQAB5671-71-67 11:39:40 Test Item Value Reference Range Interpretation Comments PROTIME (test code = PROTIME) 13.1 s 12.0-14.7 N [facility] HospitalQjcfpieBFNQFDLEU1552-24-57 11:37:00 Test Item Value Reference Range Interpretation Comments U Preg (test code = U Negative (05/09/2013 N Preg) 06:37:00) [facility] CenterKddpwsuPQPXYFOONY6739-69-96 11:37:00 Test Item Value Reference Range Interpretation Comments Plt Morph (test code = Normal (05/09/2013 N Plt Morph) 06:37:00) [facility] CenterSdrtrstFGXJGJSVUW6928-52-31 11:37:00 Test Item Value Reference Range Interpretation Comments Eosinophils (test code = 1.0 See_Comment N [A utomated message] The Eosinophils) system which ge nerated this result tra nsmitted reference range : <=4.0. The reference r joan was not used to int erpret this result as normal/abnormal . [facility] CenterSqdezywXIXHJRXYXJ5582-59-31 11:37:00 Test Item Value Reference Range Interpretation Comments Atypical Lymphs (test code = Atypical 0.0 N Lymphs) [facility] CenterGphgvjrKPIVIYAEJA1995-84-03 11:37:00 Test Item Value Reference Range Interpretation Comments RBC Morph (test code = Normal (05/09/2013 N RBC Morph) 06:37:00) [facility] CenterPwmjhgxBMIHVWPPOA6495-58-10 11:37:00 Test Item Value Reference Range Interpretation Comments Bands (test code = 0.0 See_Comment N [Automat ed message] The Bands) system which ge nerated this result transmit richard reference range : <=11.0. The reference r joan was not used to interpr et this result as robbie l/abnormal. [facility] CenterHhemawnTTAADKOAMT5202-86-96 11:37:00 Test Item Value Reference Range Interpretation Comments Eosinophils # (test code 0.1 See_Comment N [A utomated message] The = Eosinophils #) system whic h generated this result tra nsmitted reference range : <=0.5. The reference r joan was not used to int erpret this result as normal/abnormal . [facility] HospitalQmpmhsvHVIVBDXFG0580-45-24 11:37:00 Test Item Value Reference Range Interpretation Comments U Preg (test code = U Negative (05/09/2013 N Preg) 06:37:00) [facility] CenterAedlivaRZCSJGTXWF7529-71-30 11:37:00 Test Item Value Reference Range Interpretation Comments Plt Morph (test code = Normal (05/09/2013 N Plt Morph) 06:37:00) [facility] CenterBuqeoznXLGBOWRQTH5979-14-80 11:37:00 Test Item Value Reference Range Interpretation Comments Eosinophils (test code = 1.0 See_Comment N [A utomated message] The Eosinophils) system which ge nerated this result tra nsmitted reference range : <=4.0. The reference r joan was not used to int erpret this result as normal/abnormal . [facility] CenterVotowxqPZHWWJPOIS8476-91-62 11:37:00 Test Item Value Reference Range Interpretation Comments Atypical Lymphs (test code = Atypical 0.0 N Lymphs) [facility] CenterYpvlxiaPNLZKHBZDJ0856-49-78 11:37:00 Test Item Value Reference Range Interpretation Comments RBC Morph (test code = Normal (05/09/2013 N RBC Morph) 06:37:00) [facility] CenterSgvlzqmYNBURPAEAN9505-97-91 11:37:00 Test Item Value Reference Range Interpretation Comments Bands (test code = 0.0 See_Comment N [Automat ed message] The Bands) system which ge nerated this result transmit richard reference range : <=11.0. The reference r joan was not used to interpr et this result as robbie l/abnormal. [facility] CenterXujsrflKSTWZGHZJK3734-17-30 11:37:00 Test Item Value Reference Range Interpretation Comments Eosinophils # (test code 0.1 See_Comment N [A utomated message] The = Eosinophils #) system whic h generated this result tra nsmitted reference range : <=0.5. The reference r joan was not used to int erpret this result as normal/abnormal . Gerardo Sorenson Notes Date/Time Note Provider Source 2022-07-03 14:45:00-00:00 [facility] ([facility]) OB Disch REPORT#:[id number] REPORT STATUS: Signed DATE:07/03/22 TIME: 1445 PATIENT: CAITLYN MORALEZ UNIT #: [id number] ROOM/BED: . : 88 AGE: 31 SEX: F ATTEND: Camila Ferreira MD ADM AUTHOR: Herlinda Cormier MD * ALL edits or amendments must be made on the el [employer]/computer document * Subjective Subjective Admission EGA: Weeks: 37 Days: 2 EGA at delivery (wks/days): 37 weeks (2 days) Status/day: post operative (day 2) Patient reports: Patient reports: Yes: normal lochia, pain management effective, tolerating po well, voiding well, voiding without pain, tolerating ambulatio n. No: complaints, excessive bleeding. Objective General VS: Vital Signs Date Temp Pulse Resp B/P B/P Mean Pulse Ox FiO2 07/02-07/03 97.3-98.5 65-97 17-18 97-114/62-74 Last Documented: Result Date Time B/P 114/74 07/03 0843 Temp 98.5 07/03 0843 Pulse 69 07/03 0843 Resp 18 07/03 0843 Pulse Ox 94 07/01 1700 B/P Mean 87.0 07/01 1645 PATIENT WEIGHT: Weight (lb): 153 Weight (oz): Weight (kg): 69.175036 Physical Exam Lungs: unlabored breathing Neuro: Exam: alert, oriented x3, normal speech Abdomen: post gravid, soft, no abnormal tenderne ss Incision site: well approximated edges, dry, no drainage Uterus: involution appropriate, non-tender Fundus: firm, below the umbilicus, non-tender Lower extremities: Calf tenderness: negative Results Findings/Data: Laboratory Tests: 07/02 0718 Hematology Hgb (10.1 - 13.8 g/dL) 11.5 Hct (32.5 - 41.8 %) 34.6 Results: no new labs Discharge Summary General Free Text A P: 31yo POD#2 s/p repeat csection at 37w2d due to labor 1. PP/PO-routine care-VSSAF - rev'd that uterine window seen at the time of surgery, recommend any future pregnancies be delivered by 36-37w - Hb 11.5 - voiding, tolerating diet, + flatus - Pain - tolerating with motrin/tylenol alone; motrin/oxy sent via e-rx 2. PMH: fibroids, PCOS, kidney stones, abnormal pap 3. PSH: x2, D C polypectomy, CP shunt placement, arachnoid cyst fenestration, colposcopy, IVF 4. PNLs: Rh+, MMRVI, 5. Heme-Hb 12-->11.5, VSS 6. DC home today Assessment: nml progress Date of admission: Date of admission: 07/01/22 Admission diagnosis: labor-spontaneous, labor-te rm, previous uterine incision Hospital course: spontaneous labor, repe at admit, epidural anesthesia Procedures: epidural anesthesia, repeat CS delanthony meyer Discharge condition: stable Discharge to: Home/Self Care Discharge diagnosis: full-term uncomp delivery Discharge management: less than 30 mins Time spent: Time spent with patient (minut 15 >50% spent on counseling/coordination of care: yes Baby A: Gender: male (Renan) 1 minute: 8 5 minutes: 9 Plan: routine care, discharge today Discharge Instructions Instructions: instr and warnings rev'd Diet: Regular Activity: No Driving, No Colt for 6 Wks, No Lifting >10lbs Additional discharge routines: Attending Follow- Up Notify PCP of these S/S: Increased tenderness/pa in, Moderate/large bleeding, Temp. 101 or greater Discharge meds: Continue taking these medications: PNV WITH FE FUMARATE/FA () 1 EACH TAB 1 TABLET ORAL DAILY. IRON (EZFE 200) 200 MG IRON CAP 200 MILLIGRAM ORAL DAILY. IBUPROFEN (MOTRIN) 600 MG TAB 600 MILLIGRAM ORAL EVERY 6 HOURS NEEDED. as needed for PAIN SCALE 1-3 ( USE 1ST) Qty = 30 This prescription has been renewed oxyCODONE (oxyCODONE) 10 MG TAB 10 MILLIGRAM ORAL EVERY 6 HOURS NEEDED. as n eeded for SEVERE PAIN (SCALE 7-10) Qty = 20 This prescription has been renewed Prescriptions: e-prescribe Add'l Follow-up Appointments Attending Physician: Attending physician follow up timeframe: In 1-2 weeks Electronically Signed by Herlinda Cormier MD on 10/20 at 1641 RPT #:[id number] END OF REPORT 2022-07-02 17:34:00-00:00 [facility] OB Postpart Progr Note REPORT#:[id number] REPORT STATUS: Signed DATE:07/02/22 TIME: 1734 PATIENT: CAITLYN MORALEZ UNIT #: [id number] ROOM/BED: 2028-A : 88 AGE: 31 SEX: F ATTEND: Camila Ferreira MD ADM AUTHOR: Maria Calderon MD * ALL edits or amendments must be made on the el [employer]/computer document * Subjective Subjective Admission EGA: Weeks: 37 Days: 2 EGA at delivery (wks/days): 37 weeks (2 days) Status/Day: post operative (day 1) Patient reports: Patient reports: Yes normal lochia, Yes pain management effective, Yes tolerating po well, Yes voiding well, Yes voiding without pain, Yes tolerating ambulation, Yes flatus, No no complaints Objective Nursing Documentation Review Nursing Data: The data set between the solid lines has been im ported from nursing documentation. Any exceptions have been noted be low under Provider comments. Feeding preference: Post hemorrhage risk score: Medium Risk f or Hemorrhage. Provider comments on imported nursing data: [] General VS: Vital Signs: Date Time Temp Pulse Resp B/P B/P Pulse O2 O2 F low FiO2 Mean Ox Delivery Rate 07/02 1658 97.3 97 18 108/73 07/02 1638 98.1 65 18 104/66 07/02 1218 98.7 68 18 105/67 07/02 0831 97.8 71 16 93/59 07/02 0523 98.1 62 18 90/52 07/02 0054 97.9 62 18 97/62 07/01 2004 98.0 71 18 109/70 PATIENT WEIGHT: Weight (lb): 153 Weight (oz): Weight (kg): 69.828838 Physical Exam Neuro: Exam: alert, oriented x3, normal speech Abdomen: soft, no abnormal tenderness Uterus: firm, involution appropriate, non-tender Fundus: firm, below the umbilicus, non-tender Lower extremities: Honorio's sign: negative Result Findings/Data: Laboratory Tests: 07/02 718 Hematology Hgb (10.1 - 13.8 g/dL) 11.5 Hct (32.5 - 41.8 %) 34.6 Diagnosis, Assessment Plan Diagnosis, Assessment Plan Free text A P: 31yo POD#1 s/p repeat csection at 37w2d due to labor 1. PP/PO-routine care-VSSAF - rev'd that uterine window seen at the time of surgery, recommend any future pregnancies be delivered by 36-37w - Hb 11.5 - voiding, tolerating diet, + flatus - Pain - tolerating with motrin/tylenol alone; motrin/oxy sent via e-rx 2. PMH: fibroids, PCOS, kidney stones, abnormal pap 3. PSH: x2, D C polypectomy, CP shunt placement, arachnoid cyst fenestration, colposcopy, IVF 4. PNLs: Rh+, MMRVI, 5. Heme-Hb 12-->11.5, VSS 6. Anticipate dc home POD 2, f/u in office in 2w Assessment: nml progress Plan: routine care, discharge tomorro w Plan discussed with: patient, spouse/partner Time spent: >50% spent on counseling/coordination of care: yes Electronically Signed by Maria Calderon MD on 09/22 at 1852 RPT #:[id number] END OF REPORT 2022-07-02 15:01:00-00:00 [facility] ([facility]) OB Postpart Progr Note REPORT#:[id number] REPORT STATUS: Signed DATE:07/02/22 TIME: 1501 PATIENT: CAITLYN MORALEZ UNIT #: [id number] ROOM/BED: : 88 AGE: 31 SEX: F ATTEND: Camila Ferreira MD ADM AUTHOR: Herlinda Cormier MD * ALL edits or amendments must be made on the [employer]/computer document * Herlinda Cormier 07/02/22 1501: Subjective Subjective Comments: This note was started in error. Please diregard. Electronically Signed by Herlinda Cormier MD on 10/20 at 0832 Electronically Signed by Maria Calderon MD on 01/20 at 1117 RPT #:[id number] END OF REPORT 2022-07-01 13:54:00-00:00 [facility] ([facility]) OB Delivery Note REPORT#:[id number] REPORT STATUS: Signed DATE:07/01/22 TIME: 1354 PATIENT: CAITLYN MORALEZ UNIT #: [id number] ROOM/BED: LDOR7-A : 88 AGE: 31 SEX: F ATTEND: Camila Ferreira MD ADM AUTHOR: Camila Ferreira MD * ALL edits or amendments must be made on the [employer]/computer document * OB Delivery Nursing Documentation Review Nursing data: The data set between the solid lines has been im ported from nursing documentation. Any exceptions have been noted be low under Provider comments. _ ROM date: ROM time: Membranes rupture method: Amniotic fluid color: Amniotic fluid amount: Steroids prior to arrival: Antibiotic prophylaxis given: Yes Post hemorrhage risk score: Medium Risk f or Hemorrhage. Delivery date A: Delivery time infant A: Birthweight (gm) infant A: Weight (lb) infant A: Weight (oz) A: Gender A: 1 minute infant A: 5 minutes infant A: 10 minutes infant A: Cord pH obtained infant A: Vacuum time infant A: Vacuum # pulls A: Vacuum # popoffs infant A: QBL at delivery: __ Provider comments on imported nursing data: [] Pre-delivery GBS status: GBS status: negative evaluation at delivery: NRP certified pe rsonnel Admission EGA: Weeks: 37 Days: 2 Admission indication: labor Blood Loss/Details Blood loss at delivery: no more than expected EBL at delivery (ml's): 700 Baby A Information Baby A information Delivery date: 07/01/22 Delivery time: 1331 Wt of baby (lbs/oz): 6#10 Gender: male (Renan) 1 minute: 8 5 minutes: 9 Presentation: vertex Operative Note-Full )(Pre-procedure diagnosis: @ 37.2 with prior csection x 2, labor )(Post-procedure diagnosis: same as pre-procedur e dx (same) )(Procedures performed: Repeat lower transverse section )(Technique/Procedure: After informed consent was o btained, the patient was taken to the operating room where anesthesia was adminis tered and found to be adequate. She was then prepped and draped in sterile fashio n in a dorsal supine position with a leftward tilt. A time out procedure was then performed and the OR team agreed to the planned procedure. The patient s abdomen was then tested with an Allis clamp and anesthesia was found to be adequate. A Pfannenstiel skin incision was then made with the scalpel and carried down to the underlying fascia with the bovie. The bovie was then used to score the fascia in the midline and the incision was then extended laterally using Davies scissors. The superior aspect of the fascial inc ision was then grasped with Sean clamps, elevated and rectus muscles were dissected off. The inferior aspect of the fascial incisi on was then grasped with Sean clamps, elevated and rectus muscles were dissected off. The rectus muscles were then in the mi dline and the peritoneum identified in a clear area and entered bluntly. The peritoneum was then extended superior and inferiorly with good visua lization of the bladder. The bladder blade was then inserted and the vesi couterine peritoneum was then identified, grasped with pic kups and entered sharply using Metzembaum scissors. The incision was then extended laterally and jitendra dder flap created digitally. The bladder blade was then r einserted and the uterus was incised in a transverse fashion with the scalpel. The incision was then extended laterally using Zuñiga method. The was then delivere d in cephalic presentation atraumatically, nose and mouth were suctioned, cord was clamped and cut, and was handed off to waiting nurse. Nuchal cord was not noted. Cord b lood banking was not collected. The placenta was then removed manually a nd the uterus was exteriorized and was cleared of all clots and debris with a moist lap sponge. The hysterotomy was then repaired using 0 Monocr yl in a running locked fashion with good hemostasis noted. The uterus was then returned to the abdom en. The pelvic colic gutters were then cleared off all clots and debris using a moist lap sponge. The hysterotomy and bladder were then reinspected an d found to be hemostatic. The rectus muscles and perit oneum were then reapproximated in the midline using 2.0 Chromic in a mattress suture fashion. The mu scle and fascia were then examined and found to be hem ostatic. The fascia was then reapproximated using 0 Vicryl in a running fashion. The subcutaneous ti ssue was then irrigated and bovie cautery was used to obtain hemostasis. The subcutaneous tissue was then reapproximated using 2.0 Namita in. The skin was then closed with 3.0 Monocryl in a subcuticular fashion. The patient tolerated the procedure well. She wa s then taken to recovery room in stable condition. Sponge, lap and needle coun ts were correct times 3. 2 grams of ancef were given prior to the start of surgery for surgical prophylaxis. )(Primary Surgeon: Camila Ferreira MD )(Button Tufter(s): SHAHID Powers )(Anesthesia: combined spinal/epi )(Operative findings: normal tubes and ovaries uterus with intact window in midline 1cm x 1.5cm shunt catheter visualized without active drainag e )(Complications: none )( Estimated blood loss (ml): 700 Urine output: 100cc tea-colored Disposition: PACU Counts: Sponge count: correct Instrument count: correct Needle count: correct Wound class: clean-contaminated at 1402 RPT #:[id number] END OF REPORT 2022-07-01 12:47:00-00:00 [facility] ([facility]) OB Admission / H P REPORT#:[id number] REPORT STATUS: Signed DATE:07/01/22 TIME: 1247 PATIENT: CAITLYN MORALEZ UNIT #: [id number] ROOM/BED: [address] : 88 AGE: 31 SEX: F ATTEND: Camila Ferreira MD ADM AUTHOR: Sharifa Montoya MD * ALL edits or amendments must be made on the [employer]/computer document * OB History Chief complaint: uterine contractions HPI: 31yo at 37w2d who pr esents with complaint of contractions. Patient has h /o 2 prior C-sections. She denies leakage of flu id, vaginal bleeding. +FM history: : 3 Term: 2 : 0 Abortus: 0 Living children: 2 Number of prev : 2 Current : Admission EGA (weeks) 37 Admission EGA (days) 2 Conditions of : previous uterine incisi on Labs: Rh: positive Rubella: immune Hepatitis B: negative HIV: negative STD: negative Syphilis: currently negative GBS: unknown Past History Additional Medical History: kidney stones, HPV, fibroids Past Surgical History: Reports: , D C, RN TRANSFER shunt. Additional Family History non-contributory Alcohol Use Denies EtOH use Drug Use Denies recreational drugs Smoking status for patients 13 years old or olde r: Never Smoker Medications: Home Medications: PNV WITH FE FUMARATE/FA () 1 TAB PO MARTA Y IRON (EZFE 200) 200 MG PO DAILY IBUPROFEN (MOTRIN) 600 MG PO Q6H PRN PRN PAIN SC ROSS 1-3 (USE 1ST) oxyCODONE 10 MG PO Q6H PRN PRN SEVERE PAIN (SCAL E 7-10) Allergies: Coded Allergies: No Known Allergies (03/03/21) Objective General VS: Last Documented: Result Date Time B/P Mean 104.0 07/01 1040 B/P 129/88 12/ 1040 Temp 98.4 12/ 1040 Pulse 78 12/ 1040 Resp 17 07/01 1040 Vital Signs Date Temp Pulse Resp B/P B/P Mean Pulse Ox FiO2 / 98.4 78 17 129/88 104.0 PATIENT WEIGHT: Weight (lb): 153 Weight (oz): Weight (kg): 69.657241 Physical Exam HEENT: normocephalic w/o injury Lungs: unlabored breathing Neuro: Exam: alert, oriented x3, normal speech Abdomen: gravid, soft, no abnormal tenderness Uterine activity: Monitor: toco Frequency (description): regular Frequency (minutes): 2 Membranes: Membranes: Intact Lower extremities: Edema: trace Calf tenderness: negative Baby A: Baby A baseline: 130 bpm Baby A variability: moderate 6-25 bpm Baby A accelerations: 15 X 15 Baby A decelerations: none Baby A FHR category: category 1 Diagnosis, Assessment Plan Diagnosis, Assessment Plan Free Text A P: 31yo at 37w2d who presents with complain t of contractions. 1. Early labor: Pt painfully selvin q2min on toco, declines TOLAC, desires repeat . Plan to pr oceed to OR for delivery as soon as OR is available. FHTs cat I 2. PMH: fibroids, PCOS, kidney stones, abnormal pap 3. PSH: x2, D C polypectomy, CP shunt placement, arachnoid cyst fenestration, colposcopy 4. PNLs: Rh+, MMRVI, GBS unknown (but plan for C esarean delivery) Dispo: Proceed to OR for repeat Assessment/Impression: previous C/S, in labor Plan: Electronically Signed by Sharifa Montoya MD on 1 09/01/21 at 1323 RPT #:[id number] END OF REPORT 2021-03-05 07:09:00-00:00 [facility] ([facility]) OB Disch REPORT#:[id number] REPORT STATUS: Signed DATE:03/05/21 TIME: 708 PATIENT: CAITLYN MORALEZ UNIT #: [id number] ROOM/BED: [address] : 88 AGE: 30 SEX: F ATTEND: Willis Calderon MD ADM AUTHOR: Breanna Marshall MD * ALL edits or amendments must be made on the [employer]/computer document * Subjective Subjective Admission EGA: Weeks: 39 Days: 4 EGA at delivery (wks/days): 39 weeks (4 days) Status/day: post operative (day 2) Patient reports: Patient reports: Yes: normal lochia, pain management effective, tolerating po well, voiding well, voiding without pain, tolerating a mbulation, flatus, bowel movement. No: complaints, nausea, vomiting , excessive bleeding, abdominal pain, perineal pain, difficulty nursing, headache, blurred vision. Objective General VS: Vital Signs Date Temp Pulse Resp B/P B/P Mean Pulse Ox FiO2 03/04-03/05 97.9-98.2 67-70 18 96-102/58-68 Last Documented: Result Date Time B/P 03/05 Temp 97.9 03/05 0841 Pulse 67 03/05 0841 Resp 18 03/05 0841 Pulse Ox 96 03/03 1327 B/P Mean 75.0 03/03 1245 PATIENT WEIGHT: Weight (lb): 157 Weight (oz): Weight (kg): 71.979943 Physical Exam Cardiac: normal rhythm Lungs: unlabored breathing Neuro: Exam: alert, oriented x3, normal speech Abdomen: post gravid, soft, no abnormal tenderne ss, no guarding, no rebound tenderness Incision site: well approxim ated edges, dry, no drainage, no inflammation, Steri -strips on Uterus: involution appropriate, non-tender Fundus: firm, at the umbilicus, non-tender Lochia: normal Lower extremities: Edema: none Results Findings/Data: Laboratory Tests: 03/04 0741 Hematology Hgb (10.1 - 13.8 g/dL) 10.2 Hct (32.5 - 41.8 %) 31.6 L Discharge Summary General Free Text A P: 30yo G2 now P2002 s/p repeat c/s at 39.4wga 1. POD 1 - AFVSS. Meeting PP milestones. 2. Heme - Hb 12.3 --> 10.2. No s/s anemia. 3. Rh+/RNI and Varicella Non-Immune, plan for im munization before discharge, ordered 4. PMH - uterine fibroids; Large Arachnoid cyst - h/o fenestration x2, and cystoperitoneal shunt for hydrocephalus. s/p CT scan yesterday that shows cyst still present, but no e/o mi dline shift or compression, has been cleared for C/s with lillie CSE anesthesia by Dr. Zamudio, neurology. Of note shunt seen during c/s running along L aspect of pelvic sidewall, n ot disturbed during surgery. Discussed with Dr. Zamudio f/ u - pt can f/u with next or prn symptoms. 5. PSH - arachnoid cyst fenestration x2, C/P edmar nt, c/s, egg retrieval/IVF 6. Baby Boy! "Meraz" doing well in the room. Dispo: routine PP care. Anticipate dc home today pending baby's dc. Assessment: nml progress Date of admission: Date of admission: 03/03/21 Admission diagnosis: previous uterine incision Hospital course: repeat admit, spinal anesthesia, nml postop/postpart care Procedures: spinal anesthesia, repeat CS deliver y Discharge condition: stable Discharge to: Home/Self Care Discharge diagnosis: full-term uncomp de livery, previous uterine incision, s/p repeat Discharge management: less than 30 mins Time spent: >50% spent on counseling/coordination of care: yes Baby A: status: live born Gender: male 1 minute: 8 5 minutes: 9 Plan: routine care Vaginal packing at delivery: No Discharge Instructions Instructions: routine instr sheet given, instr a nd warnings rev'd Diet: Resume Home Diet/Feeds Activity: Do not Submerge Incision, No Driving, No Colt for 6 Wks, No Lifting >10lbs, No Strenuous Activity, N o Swimming, Nothing in vagina pre f/u, Shower Only Additional discharge routines: Attending Follow- Up Immunizations given: rubella, Varivax Contraception discussed: abstinence for 4-6 week s, will discuss at PP visit Discharge meds: Continue taking these medications: PNV WITH FE FUMARATE/FA () 1 EACH TAB 1 TABLET ORAL DAILY. IRON (EZFE 200) 200 MG IRON CAP 200 MILLIGRAM ORAL DAILY. Start taking the following new medications: IBUPROFEN (MOTRIN) 600 MG TAB 600 MILLIGRAM ORAL EVERY 6 HOURS NEEDED. as needed for PAIN SCALE 1-3 ( USE 1ST) Qty = 30 No Refills oxyCODONE (ROXICODONE) 10 MG TAB 10 MILLIGRAM ORAL EVERY 6 HOURS NEEDED. as n eeded for SEVERE PAIN (SCALE 7-10) Qty = 20 No Refills Prescriptions: e-prescribe Add'l Follow-up Appointments Attending Physician: Attending Physician: Maria Calderon MD Special instructions: Please call for a 2 week appointment at 1114 RPT #:[id number] END OF REPORT 2021-03-04 06:40:00-00:00 [facility] ([facility]) OB Postpart Progr Note REPORT#:[id number] REPORT STATUS: Signed DATE:03/04/21 TIME: 639 PATIENT: CAITLYN MORALEZ UNIT #: [id number] [address] AGE: 30 SEX: F ATTEND: Willis Calderon MD ADM AUTHOR: Maria Calderon MD * ALL edits or amendments must be made on the [employer]/computer document * Subjective Subjective Admission EGA: Weeks: 39 Days: 4 EGA at delivery (wks/days): 39 weeks (4 days) Status/Day: post operative (day 1) Patient reports: Patient reports: Yes normal lochia, Yes pain management effective, Yes tolerating po well, Yes voiding well, Yes voiding without pain, Yes tole rating ambulation, No no complaints Objective Nursing Documentation Review Nursing Data: The data set between the solid lines has been im ported from nursing documentation. Any exceptions have been noted be low under Provider comments. Feeding preference: Post hemorrhage risk score: Medium Risk f or Hemorrhage. Provider comments on imported nursing data: [] General VS: Vital Signs: Date Time Temp Pulse Resp B/P B/P Pulse O2 O2 F low FiO2 Mean Ox Delivery Rate 03/04 0412 97.8 64 18 98/03/03 2351 98.1 60 18 96/60 03/03 1459 97.4 59 18 102/65 03/03 1327 97.5 71 18 100/65 96 03/03 1245 75.0 03/03 1245 65 18 97/64 98 03/03 1231 73.0 03/03 1231 100/57 03/03 1230 75 32 97 03/03 1218 69.0 03/03 1218 90/58 03/03 1215 71 27 98 03/03 1200 72.0 03/03 1200 68 32 95/58 98 03/03 1145 69.0 03/03 1145 70 17 97/54 97 08/03 1130 70.0 08/03 1130 76 19 89/60 98 08/03 1115 71.0 08/03 1115 76 17 90/61 96 08/03 1100 64.0 08/03 1100 83 18 86/51 96 08/03 1045 62.0 08/03 1045 85/52 08/03 1040 97.4 08/03 1040 80 16 96/57 100 08/03 0809 85.0 08/03 0809 98.2 95 17 108/70 PATIENT WEIGHT: Weight (lb): 157 Weight (oz): Weight (kg): 71.915621 Physical Exam Neuro: Exam: alert, oriented x3 Abdomen: soft, no abnormal tenderness, no guardi ng, no rebound tenderness Incision site: well approximated edges, dry, no drainage Fundus: firm, below the umbilicus, non-tender Lochia: normal Lower extremities: Edema: trace Diagnosis, Assessment Plan Diagnosis, Assessment Plan Free text A P: 30yo G2 now P2002 s/p repeat c/s at 39.4wga 1. POD 1 - afvss 2. Heme - Hb 12.3, post op h/h pending for this morning, no s/s anemia 3. Rh+/RNI and Varicella Non-Immune, plan for im munization before discharge, ordered 4. PMH - uterine fibroids; Large Arachnoid cyst - h/o fenestration x2, and cystoperitoneal shunt for hydrocephalus. s/p CT scan yesterday that shows cyst still present, but no e/o mi dline shift or compression, has been cleared for C/s with lillie CSE anesthesia by Dr. Zamudio, neurology. Of note shunt seen during c/s running along L aspect of pelvic sidewall, n ot disturbed during surgery. Discussed with Dr. Zamudio f/ u - pt can f/u with next or prn symptoms. 5. PSH - arachnoid cyst fenestration x2, C/P edmar nt, c/s, egg retrieval/IVF 6. IVF - s/p nl ech 7. Social - baby Boy! "Meraz" 8. Anticipate dc home POD 2/3, f/u in office in 2w. Assessment: nml progress Plan: routine care Plan discussed with: patient, spouse/partner Electronically Signed by Maria Calderon MD on 11/19 at 0811 RPT #:[id number] END OF REPORT 2021-03-03 10:27:00-00:00 [facility] ([facility]) OB Delivery Note REPORT#:[id number] REPORT STATUS: Signed DATE:03/03/21 TIME: 1027 PATIENT: CAITLYN MORALEZ UNIT #: [id number] ROOM/BED: [address] : 88 AGE: 30 SEX: F ATTEND: Willis Calderon MD ADM AUTHOR: Maria Calderon MD * ALL edits or amendments must be made on the [employer]/computer document * OB Delivery Nursing Documentation Review Nursing data: The data set between the solid lines has been im ported from nursing documentation. Any exceptions have been noted be low under Provider comments. _ ROM date: 03/03/21 ROM time: 1003 Membranes rupture method: Amniotic fluid color: Clear Amniotic fluid amount: Steroids prior to arrival: Antibiotic prophylaxis given: Post hemorrhage risk score: Medium Risk f or Hemorrhage. Delivery date infant A: 03/03/21 Delivery time i nfant A: 1003 Birthweight (gm) infant A: 3600 Weight (lb) infant A: Weight (oz) infant A: Gender infant A: Male 1 minute infant A: 8 5 minutes A: 9 10 minutes A: Cord pH obtained A: Vacuum time infant A: Vacuum # pulls infant A: Vacuum # popoffs A: QBL at delivery: __ Provider comments on imported nursing data: [] Pre-delivery GBS status: GBS status: negative evaluation at delivery: NRP certified pe rsonnel Admission EGA: Weeks: 39 Days: 4 EGA at delivery (wks/days): 39 weeks (4 days) Baby A Information Baby A information Delivery date: 03/03/21 Delivery time: 1003 status: live born Wt of baby (lbs/oz): 7.15 Gender: male 1 minute: 8 5 minutes: 9 Presentation: vertex ABG details Baby A Cord blood gases: not collected Nuchal cord Baby A Nuchal cord: no Delivery section indication: elective repeat Priority: scheduled : : declined Antibiotic prior to incision: 1 dose )(SCDs applied activated: Yes Uterine incision: low transverse Uterine scar: intact Consent: indication discussed, questions answer ed, pt consent to op delivery Mother's condition: mother stable 's condition: infant stable in room Additional comments: After informed consent was o btained, the patient was taken to the operating room where anesthesia was adminis tered and found to be adequate. She was then prepped and draped in sterile fashio n in a dorsal supine position with a leftward tilt. A time out procedure was then performed and the OR team agreed to the planned procedure. The patient s abdomen was then tested with an Allis clamp and anesthesia was found to be adequate. A Pfannenstiel skin incision was then made with the scalpel and carried down to the underlying fascia with the bovie. The bovie was then used to score the fascia in the midline and the incision was then extended laterally using Davies scissors. The superior aspect of the fascial inc ision was then grasped with Sean clamps, elevated and rectus muscles were dissected off. The inferior aspect of the fascial incisi on was then grasped with Sean clamps, elevated and rectus muscles were dissected off. The rectus muscles were then in the mi dline and the peritoneum identified in a clear area and entered bluntly. The peritoneum was then extended superior and inferiorly with good visua lization of the bladder. The bladder was noted to have prominent vessels, but these were avoided by dissection of the bladder flap, and staying supe rior to this area for hysterotomy incision. The bladder blade was then inserted and the vesi couterine peritoneum was then identified, grasped with pic kups and entered sharply using Metzembaum scissors. The incision was then extended laterally and jitendra dder flap created digitally. The bladder blade was then r einserted and the uterus was incised in a transverse fashion with the scalpel. The incision was then extended laterally using Zuñiga method. The infant was then delivere d in cephalic presentation atraumatically, nose and mouth were suctioned, cord was clamped and cut, and was handed off to waiting nurse. Nuchal cord was not noted. Cord b lood banking was not collected. The placenta was then removed manually a nd the uterus was exteriorized and was cleared of all clots and debris with a moist lap sponge. The hysterotomy was then repaired using 0 Monocr yl in a running locked fashion with good hemostasis noted. The ovaries were exam ined, and the Right ovary was noted to have a small 1.5 cm cyst in it, this was left undisturbed. Th e uterus was then returned to the abdomen. The pelvic coli c gutters were then cleared off all clots and debris using a moist lap sponge. Th e hysterotomy and bladder were then reinspected and found to be hemostatic. The shunt from the patie nt's prior arachnoid cyst- peritoneal surgery was visualized running along the L pelvic sidewall and was left undistrubed. The rectus muscles and perit oneum were then reapproximated in the midline using 2.0 Chromic in a mattress suture fashion. The mu scle and fascia were then examined and found to be hem ostatic. The fascia was then reapproximated using 0 Vicryl in a running fashion. The subcutaneous ti ssue was then irrigated and bovie cautery was used to obtain hemostasis. The subcutaneous tissue was then reapproximated using 2.0 Namita in. The skin was then closed with 3.0 Monocryl in a subcuticular fashion. The patient tolerated the procedure well. She wa s then taken to recovery room in stable condition. Sponge, lap and needle coun ts were correct times 3. The radiofrequency scan was performed for retained s ponges and was negative. 2 grams of ancef were given prior to the start of surgery for surgical prophylaxis. Operative Note-Full ORM Surgeries: Surgery Date and Time: 03/03/2021 0945 Proposed Primary Procedure: (R C/S EDC 8.6 JOHN) Nursing Data: The data set between the solid lines has been im ported from nursing documentation. Any exceptions have been noted be low under Provider comments. _ ROM date: 03/03/21 ROM time: 1003 Membranes rupture method: Amniotic fluid color: Clear Amniotic fluid amount: Steroids prior to arrival: Antibiotic prophylaxis given: Post hemorrhage risk score: Medium Risk f or Hemorrhage. Delivery date A: 03/03/21 Delivery time i nfant A: 1003 Birthweight (gm) A: 3600 Weight (lb) infant A: Weight (oz) A: Gender A: Male 1 minute A: 8 5 minutes A: 9 10 minutes A: Cord pH obtained A: Vacuum time A: Vacuum # pulls A: Vacuum # popoffs A: QBL at delivery: __ Provider comments on imported nursing data: [] )(Start date: 03/03/21 )(Start time: 956 )(Pre-procedure diagnosis: Prior c/s x1, h/o arachnoid cyst-peritoneal shun t )(Post-procedure diagnosis: same as pre-procedur e dx )(Procedures performed: repeat low transverse )(Primary Surgeon: Maria Calderon MD )(Button Tufter(s): SHAHID Gilbert Anesthesiologist: Dr. Andrae Posadas )(Anesthesia: spinal anesthetic Indications: prior c/s x1, cysto-peritoneal shunt )(Operative findings: vigorous male in [facility] [place] presentation, small uterine fibroid present on posterior surface of uterus approximately 1cm in size subserosal; shunt from prior neurosurgery visualize d running along Left pelvic sidewall, left in place undistrubed. )(Complications: none )( Estimated blood loss (ml): 700 )(Specimens removed/altered: none Cultures sent: No Fluids: 2400 Urine output: 60 Disposition: PACU, return to floor Counts: Sponge count: correct Instrument count: correct Needle count: correct Cottonoid count: correct Wound class: clean Blood Loss/Details Blood loss at delivery: <1000 ml EBL at delivery (ml's): 700 Electronically Signed by Maria Calderon MD on 10/19 at 1105 RPT #:[id number] END OF REPORT 2021-03-03 08:39:00-00:00 [facility] Clinical Note REPORT#:[id number] REPORT STATUS: Signed DATE:03/03/21 TIME: 08 PATIENT: CAITLYN MORALEZ UNIT #: [id number] ROOM/BED: [address] : 88 AGE: 30 SEX: F ATTEND: Willis Calderon MD ADM AUTHOR: Maria Calderon MD * ALL edits or amendments must be made on the el [employer]/computer document * Clinical Note Note: see H P in paper chart for full details 30yo at 39.4wga presents for scheduled r epeat c/s 1. Prior c/s x1 - declines , r/b/a reviewed and desires to proceed with surgery 2. Rh+/RNI and Varicella Non-Immune, plan for im munization before discharge 3. PMH - uterine fibroids; Large Arachnoid cyst - h/o fenestration x2, and cystoperitoneal shunt for hydrocephalus. s/p CT scan yesterday that shows cyst still present, but no e/o mi dline shift or compression, has been cleared for C/s with lillie CSE anesthesia by Dr. Zamudio, neurology. Of note shunt seen during c/s running along L aspect of pelvic sidewall, n ot disturbed during surgery. 4. PSH - arachnoid cyst fenestration x2, C/P edmar nt, c/s, egg retrieval/IVF 5. IVF - s/p nl ech 6. Social - baby Boy! "Kt" Electronically Signed by Maria Calderon MD on 10/19 at [facility] RPT #:[id number] END OF REPORT
[2022-12-17] MEDS ORDERED: MORPHINE 4 MG/ML SYR ONE (09:58)
[2022-12-17] MEDS ORDERED: ONDANSETRON 4 MG/2 ML VIAL ONE (09:58)
[2022-12-17] MEDS ORDERED: NA CHLORIDE 0.9% 1,000 ML ONE (09:58)
[2022-12-17 10:04] LABS: Absolute Lymphocytes (CBC) 2.4 K/uL (0.7-4.9); Hematocrit 40.9 % (36.0-45.0); Lymphocytes % 30.6 % (15.3-44.8); MPV 8.2 fL (7.6-11.3); RBC Red Blood Cell Count 4.54 M/uL (3.86-4.86)
[2022-12-17 10:21] LABS: Albumin 3.8 g/dL (3.4-5.0); Bilirubin Total 0.4 mg/dL (0.2-1.0); Potassium 3.6 mEq/L (3.5-5.1); Protein, Total 7.1 g/dL (6.4-8.2)
[2022-12-17 10:56] LABS: Specific Gravity 1.022 (1.005-1.030); Urine Bacteria None Seen /HPF (<20); Urine Bilirubin NEGATIVE (Negative); Urine Blood 2+ (Negative); Urine Clarity Clear (Clear); Urine Color Yellow (Yellow); Urine Glucose NEGATIVE (Negative); Urine Mucus 1+ /HPF (None Seen); Urine Protein TRACE (Negative); Urine RBC <5 /HPF (None Seen); Urine Urobilinogen Normal (Normal); Urine pH 5.5 (5.0-7.0)
[2022-12-17 11:00] LABS: Specific Gravity 1.022 (1.005-1.030)
[2022-12-17] MEDS ORDERED: KETOROLAC 30 MG/ML INJ ONE (11:02)
--- NOTE | 2022-12-17 11:39 | RAD REPORT ---
EXAM DESCRIPTION: CT - Stone Protocol - 12/17/2022 11:10 am CLINICAL HISTORY: FLANK PAIN COMPARISON: HEAD BRAIN W O CONTRAST dated 01/11/2013 TECHNIQUE: Thin cut axial CT imaging of the abdomen and pelvis was performed without IV contrast. Mu ltiplanar reformats were generated and reviewed. All CT scans are performed using dose optimization technique as appropriate and may include automated exposure control or mA/KV adjustment according to patient size. FINDINGS: No suspicious findings in the lung bases. The liver, spleen, and pancreas show no suspicious findings. Gallbladder and biliary tree are also wi thout suspicious finding. Symmetric renal contour, without suspicious parenchymal findings within limits of noncontrast techniq ue. Multiple radiopaque calculi on the right, largest measuring 8 millimeter. Few 3 millimeter nonobs tructing calculi in the left renal pelvis. Severe right hydroureteronephrosis. 7 mm right vesicourete ral junction calculus. No dilated bowel loops or bowel wall thickening. No free air, free fluid or inflammatory stranding. N o hernia, mass or bulky lymphadenopathy. The urinary bladder is without significant finding. Fat containing 4.4 x 4.0 x 4.3 centimeter mass likely relating to the right adnexal region, most sugg estive of a benign teratoma. No suspicious bony findings. IMPRESSION: Severe right hydroureteronephrosis. 7 millimeter right vesicoureteral junction calculus. Multiple bilateral nonobstructing renal calculi as above. 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 The findings were communicated to Rico Tillman on 12/17/2022 at 11:25 hours.
[2022-12-17] MEDS ORDERED: MAGNESIUM SULFATE 1 gm IVPB 1 GM/100 ML BAG IV ONE (11:50)
[2022-12-17] MEDS ORDERED: TAMSULOSIN 0.4 MG SR CAP ONE (11:50)
[2022-12-17] MEDS ORDERED: HYDROMORPHONE HCL 1 MG/ML INJ ONE (11:50)
--- NOTE | 2022-12-17 12:46 | ER ---
Nurse's Notes [facility] Name: Honey Archibald Age: 31 yrs Sex: Female : 1990 Arrival Date: 12/17/2022 Time: 09:36 Bed 8 Private MD: Diagnosis: Calculus of ureter Presentation: 12/17 09:44 Chief complaint: Right flank pain that radiates to lower abdomen x 2 days, N/V today. hb Actively vomiting in lobby. Coronavirus screen: At this time, the client does not indicate any symptoms associated with coronavirus-19. Ebola Screen: No symptoms or risks identified at this time. Initial Sepsis Screen: Does the patient meet any 2 criteria? No. Patient's initial sepsis screen is negative. Does the patient have a suspected source of infection? No. Patient's initial sepsis screen is negative. Risk Assessment: Do you want to hurt yourself or someone else? Patient reports no desire to harm self or others. Onset of symptoms was December 16, 2022. 09:44 Method Of Arrival: Wheelchair hb 09:44 Acuity: RAMESH 3 hb Historical: - Allergies: 09:46 No Known Allergies; hb - Home Meds: 09:46 None [Active]; hb - PMHx: 09:46 None; hb - PSHx: 09:46 None; hb - Immunization history:: Adult Immunizations up to date. - Social history:: Smoking status: Patient denies any tobacco usage or history of. Screenin:00 [facility] ED Fall Risk Assessment (Adult) History of falling in the last 3 months, ph including since admission No falls in past 3 months (0 pts) Confusion or Disorientation No (0 pts) Intoxicated or Sedated No (0 pts) Impaired Gait No (0 pts) Mobility Assist Device Used No (0 pt) Altered Elimination No (0 pt) Score/Fall Risk Level 0 - 2 = Low Risk Oriented to surroundings, Maintained a safe environment, Hourly rounding (assess needs \T\ fall precautionary measures) done. Abuse screen: Denies threats or abuse. Denies injuries from another. Nutritional screening: No deficits noted. Tuberculosis screening: No symptoms or risk factors identified. Assessment: 09:59 General: Appears in no apparent distress. uncomfortable, well groomed, Behavior is ph calm, cooperative, appropriate for age. Pain: Complains of pain in anterior aspect of right lateral abdomen and right lower quadrant. Neuro: Level of Consciousness is awake, alert, obeys commands, Oriented to person, place, time, situation. Cardiovascular: Capillary refill < 3 seconds in bilateral fingers Patient's skin is warm and dry. Respiratory: Airway is patent Respiratory effort is even, unlabored. GI: Abdomen is non-distended, Reports lower abdominal pain, nausea, vomiting. : Reports pain in right flank(s), lower quadrant(s). Derm: Skin is pink, warm \T\ dry. 10:47 Reassessment: Patient appears in no apparent distress at this time. Patient and/or ph family updated on plan of care and expected duration. Pain level reassessed. Patient is alert, oriented x 3, equal unlabored respirations, skin warm/dry/pink. Urine sample obtained, pt continues to c/o R flank pain after IVP morphine, ERP notified, will give IVP toradol after negative UPT result. 11:52 Reassessment: Patient appears in no apparent distress at this time. Patient and/or ph family updated on plan of care and expected duration. Pain level reassessed. Patient is alert, oriented x 3, equal unlabored respirations, skin warm/dry/pink. pt states that pain is improving. Vital Signs: 09:44 BP 128 / 76; Pulse 73; Resp 16; Temp 98.5(O); Pulse Ox 100% on R/A; Weight 61.23 kg; hb Height 5 ft. 5 in. ; Pain 10/10; 10:49 BP 154 / 59; Pulse 62; Resp 18; Pulse Ox 99% on R/A; ph 11:53 BP 118 / 70; Pulse 55; Resp 18; Pulse Ox 100% on R/A; ph 12:45 BP 110 / 76; Pulse 55; Resp 18; Pulse Ox 99% on R/A; ph 13:41 BP 120 / 89; Pulse 54; Resp 18; Temp 98.1; Pulse Ox 99% on R/A; ph 09:44 Body Mass Index 22.46 (61.23 kg, 165.1 cm) hb 09:44 Pain Scale: Adult hb ED Course: 09:38 Patient arrived in ED. mr 09:40 Diana Mitchell, ADEOLA [facility] kb 09:40 Tien Mcfarlane MD is Attending Physician. kb 09:44 Lucy Nathan, RN is Primary Nurse. ph 09:45 Triage completed. hb 09:46 Arm band placed on. hb 09:59 CBC with Diff Sent. ph 09:59 CMP Sent. ph 09:59 Lipase Sent. ph 10:00 Radiology exam delayed due to test not completed at this time. sj 10:01 Patient has correct armband on for positive identification. Bed in low position. Call ph light in reach. Side rails up X 1. Pulse ox on. NIBP on. Door closed. Noise minimized. 10:47 Test, Urine Sent. ph 10:47 Urinalysis w/ reflexes Sent. ph 11:11 CT Stone Protocol In Process Unspecified. EDMS 12:45 Jamshid Schwarz MD is Referral Physician. kb 13:42 No provider procedures requiring assistance completed. IV discontinued, intact, ph bleeding controlled, No redness/swelling at site. Pressure dressing applied. Administered Medications: 09:58 Drug: NS 0.9% IV 1000 ml Route: IV; Rate: 1 bolus; Site: right antecubital; ph 11:52 Follow up: Response: No adverse reaction; IV Status: Completed infusion; IV Intake: ph 1000ml 09:58 Drug: Ondansetron IVP 4 mg Route: IVP; Site: right antecubital; ph 10:47 Follow up: Response: No adverse reaction ph 09:59 Drug: morphine IVP or IV 4 mg Route: IVP; Infused Over: 4 mins; Site: right antecubital;ph 10:47 Follow up: Response: No adverse reaction; Pain is unchanged, physician notified ph 11:22 Drug: Ketorolac IVP 15 mg Route: IVP; Site: right antecubital; ph 11:51 Follow up: Response: No adverse reaction; Pain is decreased ph 11:50 Drug: HYDROmorphone IVP 1 mg Route: IVP; Site: right antecubital; ph 11:51 Follow up: Response: No adverse reaction; Pain is decreased ph 11:50 Drug: Flomax PO 0.4 mg Route: PO; ph 11:52 Follow up: Response: No adverse reaction ph 11:51 Drug: Magnesium Sulfate IVPB 1 grams Route: IVPB; Infused Over: 1 hrs; Site: right ph antecubital; 13:00 Follow up: Response: No adverse reaction; IV Status: Completed infusion ph Medication: 10:01 VIS not applicable for this client. ph Intake: 11:52 IV: 1000ml; Total: 1000ml. ph Outcome: 12:45 Discharge ordered by MD. granda 13:42 Discharged to home ambulatory, with significant other. ph 13:42 Condition: good 13:42 Discharge instructions given to patient, significant other, Instructed on discharge instructions, follow up and referral plans. medication usage, Demonstrated understanding of instructions, follow-up care, medications, Prescriptions given X 3. 13:43 Patient left the ED. ph Signatures: Dispatcher [employer] EDMS Diana Mitchell, FAMILY DEVELOPMENT EXTENSION SPECIALIST-C FAMILY DEVELOPMENT EXTENSION SPECIALIST-Ckb DonaldKalyn mr Fitzpatrick, Lucy Wood RN RN Tasha Millard, MEÑO RN hb Corrections: (The following items were deleted from the chart) 09:48 09:44 Pulse 73bpm; Resp 16bpm; Pulse Ox 100% RA; Temp 98.5F Oral; 61.23 kg; Height 5 hb ft. 5 in.; BMI: 22.4; Pain 05/10, Adult; hb
--- NOTE | 2022-12-17 12:46 | EDPHYS ---
Physician Documentation [facility] Name: Honey Archibald Age: 31 yrs Sex: Female : 1990 Arrival Date: 12/17/2022 Time: 09:36 Bed 8 Private MD: ED Physician Tien Mcfarlane HPI: 12/17 12:52 This 31 yrs old Female presents to ER via Wheelchair with complaints of Abdominal Pain, kb Back Pain, Vomiting. 12:52 The patient has not recently seen a physician. kb 12:52 The patient complains of pain in the right flank. The pain radiates to the suprapubic kb area and right lower quadrant. Onset: The symptoms/episode began/occurred last night. Modifying factors: The symptoms are alleviated by nothing. the symptoms are aggravated by nothing. Associated signs and symptoms: Pertinent positives: nausea, vomiting. Severity of pain: At its worst the pain was moderate in the emergency department the pain is unchanged. The patient has experienced similar episodes in the past, several times. Historical: - Allergies: 09:46 No Known Allergies; hb - Home Meds: 09:46 None [Active]; hb - PMHx: 09:46 None; hb - PSHx: 09:46 None; hb - Immunization history:: Adult Immunizations up to date. - Social history:: Smoking status: Patient denies any tobacco usage or history of. ROS: 12:49 Constitutional: Negative for fever, chills, and weight loss. kb 12:49 : Positive for flank pain, difficulty urinating. 12:49 All other systems are negative. Exam: 12:49 Constitutional: This is a well developed, well nourished patient who is awake, alert, kb and in no acute distress. Head/Face: Normocephalic, atraumatic. ENT: Moist Mucous membranes Cardiovascular: Regular rate and rhythm with a normal S1 and S2. No gallops, murmurs, or rubs. No pulse deficits. Respiratory: Respirations even and unlabored. No increased work of breathing. Talking in full sentences Skin: Warm, dry with normal turgor. Normal color. MS/ Extremity: Pulses equal, no cyanosis. Neurovascular intact. Full, normal range of motion. Neuro: Awake and alert, GCS 15, oriented to person, place, time, and situation. Moves all extremities. Normal gait. 12:49 Abdomen/GI: Inspection: abdomen appears normal, Bowel sounds: normal, Palpation: soft, in all quadrants, mild abdominal tenderness, in the right lower quadrant. 12:49 Back: CVA tenderness, that is moderate, is noted on the right. Vital Signs: 09:44 BP 128 / 76; Pulse 73; Resp 16; Temp 98.5(O); Pulse Ox 100% on R/A; Weight 61.23 kg; hb Height 5 ft. 5 in. ; Pain 10/10; 10:49 BP 154 / 59; Pulse 62; Resp 18; Pulse Ox 99% on R/A; ph 11:53 BP 118 / 70; Pulse 55; Resp 18; Pulse Ox 100% on R/A; ph 12:45 BP 110 / 76; Pulse 55; Resp 18; Pulse Ox 99% on R/A; ph 13:41 BP 120 / 89; Pulse 54; Resp 18; Temp 98.1; Pulse Ox 99% on R/A; ph 09:44 Body Mass Index 22.46 (61.23 kg, 165.1 cm) hb 09:44 Pain Scale: Adult hb MDM: 09:40 Patient medically screened. kb 12:50 Differential diagnosis: appendicitis, Pyelonephritis, Ureterolithiasis, urinary tract kb infection. Data reviewed: vital signs, nurses notes. Counseling: I had a detailed discussion with the patient and/or guardian regarding: the historical points, exam findings, and any diagnostic results supporting the discharge/admit diagnosis, lab results, radiology results, the need for outpatient follow up, a urologist, to return to the emergency department if symptoms worsen or persist or if there are any questions or concerns that arise at home. ED course: Pain controlled, pt reports she has passed bigger stones in the past. Serum labs and urinalysis wnl. Pt will follow up with urology and will return for any worsening symptosm. 12/17 09:47 Order name: CBC with Diff; Complete Time: 10:12 kb 12/17 09:47 Order name: CMP; Complete Time: 10:28 kb 12/17 09:47 Order name: Lipase; Complete Time: 10:28 kb 12/17 09:47 Order name: Test, Urine; Complete Time: 11:10 kb 12/17 09:47 Order name: Urinalysis w/ reflexes; Complete Time: 10:58 kb 12/17 09:47 Order name: CT Stone Protocol; Complete Time: 11:40 kb 12/17 09:47 Order name: IV Saline Lock; Complete Time: 09:49 kb 12/17 09:47 Order name: Labs collected and sent; Complete Time: 09:49 kb Administered Medications: 09:58 Drug: NS 0.9% IV 1000 ml Route: IV; Rate: 1 bolus; Site: right antecubital; ph 11:52 Follow up: Response: No adverse reaction; IV Status: Completed infusion; IV Intake: ph 1000ml 09:58 Drug: Ondansetron IVP 4 mg Route: IVP; Site: right antecubital; ph 10:47 Follow up: Response: No adverse reaction ph 09:59 Drug: morphine IVP or IV 4 mg Route: IVP; Infused Over: 4 mins; Site: right antecubital;ph 10:47 Follow up: Response: No adverse reaction; Pain is unchanged, physician notified ph 11:22 Drug: Ketorolac IVP 15 mg Route: IVP; Site: right antecubital; ph 11:51 Follow up: Response: No adverse reaction; Pain is decreased ph 11:50 Drug: HYDROmorphone IVP 1 mg Route: IVP; Site: right antecubital; ph 11:51 Follow up: Response: No adverse reaction; Pain is decreased ph 11:50 Drug: Flomax PO 0.4 mg Route: PO; ph 11:52 Follow up: Response: No adverse reaction ph 11:51 Drug: Magnesium Sulfate IVPB 1 grams Route: IVPB; Infused Over: 1 hrs; Site: right ph antecubital; 13:00 Follow up: Response: No adverse reaction; IV Status: Completed infusion ph Disposition Summary: 12/17/22 12:45 Discharge Ordered Location: Home kb Condition: Stable kb Diagnosis - Calculus of ureter kb Followup: kb - With: Emergency Department - When: As needed - Reason: Worsening of condition Followup: kb - With: Private Physician - When: 2 - 3 days - Reason: Recheck today's complaints, Continuance of care, Re-evaluation by your physician Followup: kb - With: Jamshid Schwarz MD - When: 2 - 3 days - Reason: Recheck today's complaints Discharge Instructions: - Discharge Summary Sheet kb - Kidney Stones, [id number] kb - Dietary Guidelines to Help Prevent Kidney Stones kb Forms: - Medication Reconciliation Form kb - Thank You Letter kb - Antibiotic Education kb - Prescription Opioid Use kb - Work release form hb - Family Work Release hb Prescriptions: - ondansetron 4 mg Oral Tablet,disintegrating - take 1 tablet by ORAL route every 6 hours As needed; 12 tablet; Refills: 0, kb Product Selection Permitted - Diclofenac Sodium 75 mg Oral tablet,delayed release (DR/EC) - take 1 tablet by ORAL route 2 times per day As needed; 30 tablet; Refills: 0, kb Product Selection Permitted - Tramadol 50 mg Oral Tablet - take 1 tablet by ORAL route every 8 hours as needed; 12 tablet; Refills: 0, kb Product Selection Permitted Signatures: Dispatcher [employer] EDDiana Balderas FNP-C FNP-Ckb Hall, Patricia, RN RN Tasha Millard RN RN Corrections: (The following items were deleted from the chart) 12:50 12:49 Abdomen/GI: Inspection: abdomen appears normal, Bowel sounds: normal, Palpation: kb soft, in all quadrants, mild abdominal tenderness, in the left lower quadrant, kb 12:50 12:49 Back: CVA tenderness, that is moderate, is noted on the left, kb kb
[2022-12-17 13:54] VITALS: O2SAT 99
[2022-12-17 13:55] VITALS: BP 120/89; TEMP 98.1
== END 2022-12-17 13:43 | disposition home or self-care (01) ==
LOC: ER 09:36
DX: N20.1 Calculus of ureter (principal)
CPT/HCPCS: 85025; 81001; 36415; 81025; 83690; 80053; 76377; 74176; J3475; J1170; J2405; J7030

== ENCOUNTER 2022-12-18 04:04 | Emergency (ER) | payer OTHER ==
--- OUTSIDE RECORDS SUMMARY | 2022-12-18 04:21 | XMS REPORT | Continuity of Care Document ---
:1990 Author Organization [facility] t Address [address] [place] [address] Care Team Providers Name Role Phone Maria Calderon Attending Clinician Unavailable Camila Ferreira Attending Clinician Unavailable [email or web address] Attending Clinician Unavailable Iveth De La Garza Attending Clinician Unavailable Doctor Unassigned, Ravena Attending Clinician Unavailable Raisa Gotti Attending Clinician Feliciano Aguilar Attending Clinician Chanel Foy Attending Clinician Deonte Arana Attending Clinician Indio Perez Attending Clinician Maria Calderon Admitting Clinician Unavailable Camila Ferreira Admitting Clinician Unavailable [email or web address] Admitting Clinician Unavailable Chanel Foy Admitting Clinician Feliciano Aguilar Admitting Clinician Payers Payer Name Policy Type Policy Number Effective Date Expiration Date Cody joshua [employer] - CHOICE [id number] 2017 00:00:00 (POS II) Problems Condition Condition [...] [place] ([place]ENNIF[place] III) (JENNIFER III) 00 [facility] High 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 [place] of infection [place] [facility] Hemorrhoid Hemorrhoid Disease Active Overview : Univers s, s, 3- Added ity of unspecifie unspecifie 00:00: automatic [place] d d 00 ally from Medical hemorrhoid hemorrhoid request B ranch type type for surgery [id number] Heart Heart Disease Active Univers palpitatio palpitatio [...] CHOROID CHOROID 00:00: [place] Active 00 10/01/2014 [facility] 789.39 - 789.39 - Diagnosis Active 2014-11-23 Memoria ABDMNAL ABDMNAL 2- 16:35:00 l MASS OT MASS OT 00:01: Delta 625.8 - 625.8 - 00 FEM GEN FEM GEN Active 09/20/2014 MARTHAAmy Doug HYDROCEPHA HYDROCEPH Diagnosis Active 2013-082014-07-15 Memoria TRINO, ICD ALUS, ICD -14 08:45:00 l 9- 331.3 9- 331.3 00:00: Sundeep mitchell Active 00 06/14/2014 [facility] HYDROCEPHA HYDROCEPH Diagnosis Active 2013-082014-06-17 Memoria TRINO ALUS 1-14 12:18:00 l Active 00:00: Delta 06/14/2014 00 [facility] Communicat Communica Problem Active 2013-082016-04-30 Memoria ing ting 1-06 01:38:20 l hydrocepha hydrocepha 00:00: Jaiden pierce trino trino 00 (disorder) (disorder) Active 06/06/2014 Problem 04/30/2016 Data migrated from [facility] on 03/25/15. ASHANTI Sorenson, OPIAmy [place]lord HEADACHE HEADACHE Diagnosis Active 2013-082014-05-15 Memoria Active 13:10:00 l 05/15/2014 00:00: Sundeep mitchell [address], [place] PSEUDOTUMO PSEUDOTUM Diagnosis Active 2012-082013-06-05 Memoria R OR Active 08-01 08:08:00 l 06/01/2013 00:00: Sundeep mitchell [address] HYDROCEPHA Diagnosis Active 2012-082013-06-01 Memoria TRINO, HYDROCEPHA 0- 15:11:00 l VOMITING TRINO, 00:00: Delta VOMITING 00 Active 05/31/2013 [facility] VOMITING VOMITING Diagnosis Active 2012-082013-05-31 Memoria Active 19:00:00 l 05/31/2013 00:00: Sundeep mitchell [address] SEIZURES, SEIZURES, Diagnosis Active 2013-05-10 Memoria ARCHNOID ARCHNOID 03-29 21:36:00 l CYST CYST 00:00: [place] ICD-9# ICD-9# 00 345.41, 3 345.41, 3 Active 03/29/2013 [facility] SEIZURES, SEIZURES, Diagnosis Active 2013-04-12 Memoria ARCHNOID ARCHNOID 03-29 13:43:00 l CYST CYST 00:00: Spearman Active 00 03/29/2013 [facility] EMU 23HR EMU 23HR Diagnosis Active 2013-04-03 Memoria EEG-STARIN EEG-STARIN 03-23 09:24:00 l G SPELLS G SPELLS 00:00: Sundeep mitchell Active 03/23/2013 [facility] Arachnoid Arachnoid Problem Active 2016-04-30 Memoria cyst cyst 03-01 01:38:20 l (disorder) (disorder) 00:00: Jaiden jimenezann Active 00 03/01/2013 Problem 04/30/2016 Data migrated from [facility] on 03/25/15. [facility], ASHANTI Sorenson, ASHANTI Saini,[facility] [place] Final: Final: Problem 2014-11-02 Grant elise 11/02/2014 15:26:41 l [facility] Kidney Kidney Problem Resolve 2016-04-30 Me moria stone stone d 01:38:20 l (disorder) (disorder) He rmann Resolved Problem 04/30/2016 [facility], ASHANTI Sorenson, ASHANTI Saini,M [facility] [place] Acute pain Acute Problem Active 2016-04-30 M emoria (finding) pain 01:38:20 l (finding) Delta Active Problem 04/30/2016 [facility], ASHANTI Sorenson, ASHANTI Saini,M [facility] [place] Headache Headache Problem Active 2016-04-30 Memoria (finding) (finding) 01:38:20 l Active [place] Problem 04/30/2016 [facility], ASHANTI Sorenson, ASHANTI Saini Cyst of Cyst of Problem Active 2016-04-30 Me moria ovary ovary 01:38:20 l (disorder) (disorder) He rmann Active Problem 04/30/2016 [facility], OPID Delta, OPID [place] COMMUNICAT COMMUNICA Diagnosis Active 2014-07-15 Memoria HYDROCEPHA T 08:45:00 l TRINO HYDROCEPHA Sundeep n TRINO Active [facility] PSYMOTR PSYMOTR Diagnosis Active 2013-05-10 Memoria EPIL W EPIL W 21:36:00 l INTR EPIL INTR EPIL Herm dorotyh Active [facility] CEREBRAL CEREBRAL Diagnosis Active 2013-05-10 Memoria CYSTS CYSTS 21:36:00 l Active [facility] CONVULSION CONVULSIO Diagnosis Active 2013-04-03 Memoria S NEC NS NEC 09:24:00 l [facility] BENIGN BENIGN Diagnosis Active 2014-11-05 M emoria NEOPLASM NEOPLASM 21:47:00 l CHOROID CHOROID Delta Active [facility] History of Past Illness Condition Condition Condition Status Onset Resolution Last Treating Co mments Source Name Details Category Date Date Treatment Clinician Date Discharge Discharge Problem 2013-082014-05-09 2014-05-09 Memoria Diagnosis: Diagnosis: 0-06 05:27:44 05:27:44 l Headache Headache 05:00: Sundeep n 05/06/2014 00 4 [place] Allergies, Adverse Reactions, Alerts Allergy Allergy Status Severity Reaction(s) Onset Inactive Treating Comm ents Source Name Type Date Date Clinician No Known DA [facility] [place] No Known DA Active [facility] [place] Animal Propensi Active Hives Univers Dander ty to 9-13 ity of adverse 00:00: [place] reaction 00 Medical s Branch Social History Social Habit Start Date Stop Date Quantity Comments Source Alcohol intake [facility] Sex Assigned At [facility] Social History 2014-10-29 2014-10-29 Gerardo quevedo 12:22:21 12:22:21 Smoking Status Start Date Stop Date Source Social History [facility] Delta Medications Ordered Filled Start Stop Current Ordering Indication Dosage Frequency Signature Comments Components Source Medication Medication Date Date Medication? Clinician (SIG) Name Name HYDROmorphO Yes [id number] 2mg Take 1 Univers ne 4-02 tablet by ity of (DILAUDID) 00:00: mouth [place] 2 mg tablet 00 every 6 Medic al (six) Branch hours as needed for Pain (scale 7-10). ibuprofen Yes Special Memor ia 600 mg oral 4-02 Instructio l tablet 12:45: ns: take with [...] Yes Special Memor ia 600 mg oral 4-02 Instructio l tablet 12:45: ns: take with [...] Yes Special Memor ia 600 mg oral 4-02 Instructio l tablet 12:45: ns: take with [...] Notes: Grant elise en 325 MG / 4- (Same as: l Hydrocodone 19:49: [place] Randi nn Bitartrate 00 325/5) Do 5 MG Oral not exceed Tablet 4gm/day of [[place] acetaminop 5/325] hen. Acetaminoph No Notes: Grant elise en 325 MG / 4-01 (Same as: l Hydrocodone 19:49: [place] Randi nn Bitartrate 00 325/5) Do 5 MG Oral not exceed Tablet 4gm/day of [[place] acetaminop 5/325] hen. Acetaminoph No Notes: Grant elise en 325 MG / 4-01 (Same as: l Hydrocodone 19:49: [place] Randi nn Bitartrate 00 325/5) Do 5 MG Oral not exceed Tablet 4gm/day of [[place] acetaminop 5/325] hen. benzocaine- No Notes: Grant elise menthol - Cepacol l topical 19:35: lozenges Sundeep n 00 Dispense 1 box = 16 lozenges (Same As: Cepacol Lozenges) benzocaine- No Notes: Grant elise menthol - Cepacol l topical 19:35: lozenges Sundeep n 00 Dispense 1 box = 16 lozenges (Same As: Cepacol Lozenges) benzocaine- No Notes: [place] elise menthol - Cepacol l topical 19:35: lozenges Sundeep n 00 Dispense 1 box = 16 lozenges (Same As: Cepacol Lozenges) Cepacol No 1 lozenge, Grant elise Lozenge 10-30 Route: l 19:33: MUCOUS Delta 00 MEM, Q2H, Drug form: SAMINA, PRN Sore Throat, Start date: 10/30/14 14:33:00, Duration: 30 day, Stop date: 11/29/14 14:32:00 Cepacol No 1 lozenge, Grant elise Lozenge 4- Route: l 19:33: MUCOUS Delta 00 MEM, Q2H, Drug form: SAMINA, PRN Sore Throat, Start date: 10/30/14 14:33:00, Duration: 30 day, Stop date: 11/29/14 14:32:00 Cepacol No 1 lozenge, Grant elise Lozenge 10-30 Route: l 19:33: MUCOUS [place] 00 MEM, Q2H, Drug form: SAMINA, PRN [...] (Same as: Proventil) Benadryl No Notes: Memoria 4-01 (Same as: l 12:03: Benadryl) [place] Benadryl No Notes: Memoria 4-01 (Same as: l 12:03: Benadryl) [place] Benadryl No Notes: Memoria 4-01 (Same as: l 12:03: Benadryl) Delta Benadryl No Notes: Memoria 4-01 (Same as: l 12:01: Benadryl) Delta Benadryl No Notes: Memoria 4-01 (Same as: l 12:01: Benadryl) Delta Benadryl No Notes: Memoria 4-01 (Same as: l 12:01: Benadryl) [place] 00 sennosides, No Notes: Grant elise PRISON 4-01 (Same as: l 02:00: Senokot) [place] sennosides, No Notes: Grant elise PRISON 4- (Same as: l 02:00: Senokot) Delta sennosides, No Notes: Grant elise PRISON 4- (Same as: l 02:00: Senokot) [place] Acetaminoph No 1-2 tab, Me moria en 325 MG / 3-31 PO, Q4-6H, l Hydrocodone 22:25: PRN Pain He rmann Bitartrate 00 5 MG Oral Tablet [[place] 5/325] Diphenhydra No 25 mg = 1 M emoria mine 3-31 tab, PO, l Hydrochlori 22:25: Bedtime Her raya de 25 MG 00 Oral Tablet [Benadryl] Acetaminoph No 1-2 tab, Me moria en 325 MG / 3-31 PO, Q4-6H, l Hydrocodone 22:25: PRN Pain He rmann Bitartrate 00 5 MG Oral Tablet [[place] 5/325] Diphenhydra No 25 mg = 1 M emoria mine 3-31 tab, PO, l Hydrochlori 22:25: Bedtime Her raya de 25 MG 00 Oral Tablet [Benadryl] Acetaminoph No 1-2 tab, Me moria en 325 MG / 3-31 PO, Q4-6H, l Hydrocodone 22:25: PRN Pain He rmann Bitartrate 00 5 MG Oral Tablet [[place] 5/325] Diphenhydra No 25 mg = 1 M emoria mine 3-31 tab, PO, l Hydrochlori 22:25: Bedtime Her raya de 25 MG 00 Oral Tablet [Benadryl] Docusate No Notes: Memoria 3-31 (Same as: l 22:00: Colace) [place] (Do Not Crush) Docusate No Notes: Memoria 3-31 (Same as: l 22:00: Colace) Delta (Do Not Crush) Docusate No Notes: Memoria 3-31 (Same as: l 22:00: Colace) [place] (Do Not Crush) vancomycin No 2000 mg: Me moria 3-31 infuse l 21:00: over 2.5 Delta 00 hours vancomycin No 2001 mg: Me moria 3-31 infuse l 21:00: over 2.5 Spearman 00 hours vancomycin No 2001 mg: Me moria 3-31 infuse l 21:00: over 2.5 Spearman 00 hours Cefoxitin No Notes: Memori a [...] ne 3-31 (Same as: l 17:00: Dilaudid) Delta 00 conc = 0.5 mg/ml Hydromorph one [employer]PER [employer]NER Dose: ;Delay: ;Basal: celecoxib No Notes: Memori a 3-31 NSAID. l 17:00: Please Delta 00 check indication . Not for seizure. (Same As: CeleBREX ) Acetaminoph No Notes: Grant elise en 3-31 Infuse l 17:00: over 15 Spearman 00 minutes Do not exceed 4gm/day of acetaminop hen pregabalin No Notes: Memor ia 3-31 (Same as: l 17:00: Lyrica) Spearman 00 Tramadol No Notes: Not Mem oria 3-31 to exceed l 17:00: 400mg/day. Delta 00 (Same As: Ultram) Hydromorpho No Notes: Grant elise ne 3-31 (Same as: l 17:00: Dilaudid) Spearman 00 conc = 0.5 mg/ml Hydromorph one [employer]NER Dose: ;Delay: ;Basal: celecoxib No Notes: Memori [...] Dilaudid) conc = 0.5 mg/ml Hydromorph one [employer]NER Dose: ;Delay: ;Basal: celecoxib No Notes: Memori a 3-31 NSAID. l 17:00: Please Spearman 00 check indication . Not for seizure. (Same As: CeleBREX ) Acetaminoph No Notes: Grant elise en 3-31 Infuse l 17:00: over 15 00 minutes Do not exceed 4gm/day of [...] Memoria 3-31 (Same as: l 16:02: Exparel) Spearman 00 NOT FOR IV use Postoperat simon [...] a 3-31 (Same As: l 15:00: Ancef, Spearman Kefzol) Cefazolin No Notes: Memori a 3-31 (Same As: l 15:00: Ancef, Spearman Kefzol) Cefazolin No Notes: Memori a 3-31 (Same As: l 15:00: Ancef, Delta Kefzol) Docusate No Notes: Memoria 3-31 (Same as: l 14:50: Colace) (Do Not Crush) Naloxone No Notes: Memoria 3-31 (Same as: l 14:50: Narcan) acetaminoph No Notes: Do M emoria en-codeine 3-31 not exceed l #3 14:50: 4gm/day of Delta 00 acetaminop hen. (Same as: Tylenol with Codeine # 3) Calcium No 1,000 mL, Memor ia Chloride 3-31 Rate: 125 l 0.002 14:50: ml/hr, Delta MEQ/ML / 00 Infuse Glucose 50 over: 8 MG/ML / hr, Route: Potassium IV, Dosing Chloride Weight 0.004 52.273 kg, MEQ/ML / Total Sodium Volume: Chloride 1,000, 0.147 Start MEQ/ML date: Injectable 10/29/14 Solution 9:50:00, Duration: 30 day, Stop date: 11/28/14 9:49:00 Diphenhydra No Notes: Grant elise mine 3-31 (Same as: l 14:50: Benadryl) Spearman 00 Ondansetron No Notes: Grant elise 3-31 (Same as: l 14:50: Zofran) Spearman Docusate No Notes: Memoria 3-31 (Same as: l 14:50: Colace) Spearman (Do Not Crush) Naloxone No Notes: Memoria 3-31 (Same as: l 14:50: Narcan) Spearman acetaminoph No Notes: Do M ana liliaa en-codeine 3-31 not exceed l #3 14:50: 4gm/day of Delta acetaminop hen. (Same as: Tylenol with Codeine # 3) Calcium No 1,000 mL, Memor ia Chloride 3-31 Rate: 125 l 0.002 14:50: ml/hr, Spearman MEQ/ML / 00 Infuse Glucose 50 over: 8 MG/ML / hr, Route: Potassium IV, Dosing Chloride Weight 0.004 52.273 kg, MEQ/ML / Total Sodium Volume: Chloride 1,000, 0.147 Start MEQ/ML date: Injectable 10/29/14 Solution 9:50:00, Duration: 30 day, Stop date: 11/28/14 9:49:00 Diphenhydra No Notes: Grant elise mine 3-31 (Same as: l 14:50: Benadryl) Spearman Ondansetron No Notes: Grant elise 3-31 (Same as: l 14:50: Zofran) Docusate No Notes: Memoria 3-31 (Same as: l 14:50: Colace) (Do Not Crush) Naloxone No Notes: Memoria 3-31 (Same as: l 14:50: Narcan) acetaminoph No Notes: Do M emoria en-codeine 3-31 not exceed l #3 14:50: 4gm/day of acetaminop hen. (Same as: Tylenol with Codeine # 3) Calcium No 1,000 mL, Memor ia Chloride 3- Rate: 125 l 0.002 14:50: ml/hr, Delta MEQ/ML / 00 Infuse Glucose 50 over: [...] 3-31 not give l 14:17: IV push. (Same as: Phenergan) Naloxone No Notes: Memoria 3-31 (Same as: l 14:17: Narcan) Fentanyl No Notes: Memoria 3-31 (Same as: l 14:17: Sublimaze) Spearman 00 Preservati ve free. Hydromorpho No Notes: Grant elise ne 3-31 Same as: l 14:17: Dilaudid Labetalol No 10 mg, 2 Grant elise 3-31 mL, Route: l 14:17: IVP, Drug Spearman 00 form: INJ, Q5Min, Dosing Weight 52.273, kg, [...] 3-31 not give l 14:17: IV push. Spearman (Same as: Phenergan) Naloxone No Notes: Memoria 3-31 (Same as: l 14:17: Narcan) Fentanyl No Notes: Memoria 3-31 (Same as: l 14:17: Sublimaze) Spearman 00 Preservati ve free. Hydromorpho No Notes: Grant elise ne 3-31 Same as: l 14:17: Dilaudid Labetalol No 10 mg, 2 Grant elise 3-31 mL, Route: l 14:17: IVP, Drug Delta 00 form: INJ, Q5Min, Dosing Weight 52.273, kg, PRN Elevated BP, Start date: 10/29/14 9:17:00, Duration: 5 doses or times, Stop date: 10/30/14 0:00:00 Hydralazine No Notes: Grant elise 3-31 (Same as: l 14:17: Apresoline ) Push over 5 minutes Ondansetron No Notes: Grant elise 3-31 (Same as: l 14:17: Zofran) Flumazenil No Notes: Memor ia 10-29 (Same as: l 14:17: Romazicon) Promethazin No Notes: Do M emoria e 3-31 not give l 14:17: IV push. (Same as: Phenergan) Naloxone No Notes: Memoria 3- (Same as: l 14:17: Narcan) Fentanyl No Notes: Memoria 3- (Same as: l 14:17: Sublimaze) Preservati ve free. Hydromorpho No Notes: Grant elise ne 10-29 Same as: l 14:17: Dilaudid Labetalol No 10 mg, 2 Grant elise 3-31 mL, Route: l 14:17: IVP, Drug form: INJ, Q5Min, Dosing Weight 52.273, kg, PRN Elevated BP, Start date: 10/29/14 9:17:00, Duration: 5 doses or times, Stop date: 10/30/14 0:00:00 Hydralazine No Notes: Grant elise -31 (Same as: l 14:17: Apresoline ) Push over 5 minutes Ancef No 2 gm, Memoria 3- Route: l 12:42: IVPB, Delta 00 ONCE, Dosing Weight 52.273, kg, Start date: 10/29/14 7:42:00, Duration: 1 doses or times, Stop date: 10/29/14 7:42:00 Ancef No 2 gm, Memoria 3 Route: l 12:42: IVPB, Spearman 00 ONCE, Dosing Weight 52.273, kg, Start date: 10/29/14 7:42:00, Duration: 1 doses or times, Stop date: 10/29/14 7:42:00 Ancef 0 No 2 gm, Memoria 3-31 Route: l 12:42: IVPB, Delta 00 ONCE, Dosing Weight 52.273, kg, Start date: 10/29/14 7:42:00, Duration: 1 doses or times, Stop date: 10/29/14 7:42:00 ceFAZolin No Notes: Memori a 3-31 (Same As: l 11:00: Ancef, Spearman 00 Kefzol) ceFAZolin No Notes: Memori a 3-31 (Same As: l 11:00: Ancef, Spearman 00 Kefzol) ceFAZolin No Notes: Memori a 3-31 (Same As: l 11:00: Ancef, Spearman 00 Kefzol) Metoclopram 2013-08 Yes 10 mg = 1 M emoria miriam 10 MG 2-16 tab, PO, l Oral Tablet 12:06: QID, N/V He rmann [Reglan] 59 assos. with AGUILERA, # 30 tab, 0 Refill(s) Metoclopram 2013-08 Yes 10 mg = 1 M emoria miriam 10 MG 2-16 tab, PO, l Oral Tablet 12:06: QID, N/V He rmann [Reglan] 59 assos. with AGUILERA, # 30 tab, 0 Refill(s) Metoclopram 2013-08 Yes 10 mg = 1 M emoria miriam 10 MG 2-16 tab, PO, l Oral Tablet 12:06: QID, N/V He rmann [Reglan] 59 assos. with AGUILERA, # 30 tab, 0 Refill(s) Docusate 2013-08 Yes 100 mg = 1 Mem oria Sodium 100 2-16 cap, PO, l MG Oral 12:06: Q12H, # 90 Herm dorothy Capsule 00 cap, 0 Refill(s) Acetaminoph 2013-08 Yes 1-2 tab, Me moria en 325 MG / 2-16 PO, Q4-6H, l Hydrocodone 12:06: Pain, # 90 Delta Bitartrate 00 tab, 0 10 MG Oral Refill(s), Tablet given to [[place] patient ] Docusate 2013-08 Yes 100 mg = 1 Mem oria Sodium 100 2-16 cap, PO, l MG Oral 12:06: Q12H, # 90 Herm dorothy Capsule 00 cap, 0 Refill(s) Acetaminoph 2013-08 Yes 1-2 tab, Me moria en 325 MG / 2-16 PO, Q4-6H, l Hydrocodone 12:06: Pain, # 90 Spearman Bitartrate 00 tab, 0 10 MG Oral Refill(s), Tablet given to [[place] patient ] Docusate 2013-08 Yes 100 mg = 1 Mem oria Sodium 100 2-16 cap, PO, l MG Oral 12:06: Q12H, # 90 Herm dorothy Capsule 00 cap, 0 Refill(s) Acetaminoph 2013-08 Yes 1-2 tab, Me moria en 325 MG / 2-16 PO, Q4-6H, l Hydrocodone 12:06: Pain, # 90 Spearman Bitartrate 00 tab, 0 10 MG Oral Refill(s), Tablet given to [[place] patient ] Cepacol 2013-08 No Notes: Memoria Sore Throat 2-16 Cepacol l 06:13: lozenges Spearman 00 Dispense 1 box = 16 lozenges (Same As: Cepacol Lozenges) Cepacol 2013-08 No Notes: Memoria Sore Throat 2-16 Cepacol l 06:13: lozenges Delta 00 Dispense 1 box = 16 lozenges (Same As: Cepacol Lozenges) Cepacol 2013-08 No Notes: Memoria Sore Throat 2-16 Cepacol l 06:13: lozenges Spearman 00 Dispense 1 box = 16 lozenges (Same As: Cepacol Lozenges) phenol 2013-08 No Notes: Memoria 2-16 Chlorasept l 06:10: ic Plummer Delta 00 (Same as: Chlorasept ic, Sore Throat Plummer) phenol 2013-08 No Notes: Memoria 2-16 Chlorasept l 06:10: ic Plummer Delta 00 (Same as: Chlorasept ic, Sore Throat Plummer) phenol 2013-08 No Notes: Memoria 2-16 Chlorasept l 06:10: ic Plummer Spearman 00 (Same as: Chlorasept ic, Sore Throat Plummer) Cepacol 2013-08 No 1 lozenge, Grant elise Lozenge 2-16 Route: l 06:09: MUCOUS Spearman 00 MEM, Q2H, Drug form: SAMINA, PRN [...] Grant elise 2-15 Route: l 20:09: IVPB, Spearman 00 ONCE, Dosing Weight 52.273, kg, PRN Nausea & Vomiting, Start date: 07/15/14 14:09:00, Stop date: 08/14/14 14:08:00 Dexamethaso 2013-08 No Notes: Grant elise ne 2-15 Concentrat l 18:00: ion: Spearman 00 4mg/ml Acetaminoph 2013-08 No Notes: Do M emoria en 325 MG / 2-15 not exceed l Hydrocodone 18:00: 4gm/day of Delta Bitartrate 00 acetaminop 10 MG Oral hen. (Same Tablet as: [place] 325/10) Dexamethaso 2013-08 No Notes: Grant elise ne 2-15 Concentrat l 18:00: ion: Delta 00 4mg/ml Acetaminoph 2013-08 No Notes: Do M emoria en 325 MG / 2-15 not exceed l Hydrocodone 18:00: 4gm/day of Spearman Bitartrate 00 acetaminop 10 MG Oral hen. (Same Tablet as: [place] 325/10) Dexamethaso 2013-08 No Notes: Grant elise ne 2-15 Concentrat l 18:00: ion: Spearman 00 4mg/ml Acetaminoph 2013-08 No Notes: Do M emoria en 325 MG / 2-15 not exceed l Hydrocodone 18:00: 4gm/day of Delta Bitartrate 00 acetaminop 10 MG Oral hen. (Same Tablet as: [place] 325/10) Oxycodone 2013-08 No 10 mL, Memori [...] date: 07/15/14 11:43:00, Stop date: 07/15/14 11:43:00 Saline 2013-08 No Notes: Memoria Flush 0.9% 2-15 Same as: l 15:00: BD Spearman 00 Posiflush Sterile Vancomycin 2013-08 No 2001 mg: Me moria 6.67 MG/ML 2-15 infuse l Injectable 15:00: over 2.5 Her raya Solution 00 hours Docusate 2013-08 No Notes: Memoria 2-15 (Same as: l 15:00: Colace) Spearman (Do Not Crush) sennosides, 2013-08 No Notes: Grant elise PRISON 2-15 (Same as: l 15:00: Senokot) Delta 00 Levetiracet 2013-08 No Notes: Grant elise am 2-15 (Same l 15:00: as:Keppra) Spearman 00 Saline 2013-08 No Notes: Memoria Flush 0.9% 2-15 Same as: l 15:00: BD Delta Posiflush Sterile Vancomycin 2013-08 No 2001 mg: Me moria 6.67 MG/ML 2-15 infuse l Injectable 15:00: over 2.5 Her raya Solution 00 hours Docusate 2013-08 No Notes: Memoria 2-15 (Same as: l 15:00: Colace) Spearman (Do Not Crush) sennosides, 2013-08 No Notes: Grant elise PRISON 2-15 (Same as: l 15:00: Senokot) Spearman 00 Levetiracet 2013-08 No Notes: Grant elise am 2-15 (Same l 15:00: as:Keppra) Delta sennosides, 2013-08 No Notes: Grant elise PRISON 2-15 (Same as: l 15:00: Senokot) Spearman 00 Levetiracet 2013-08 No Notes: Grant elise am 2-15 (Same l 15:00: as:Keppra) Delta Saline 2013-08 No Notes: Memoria Flush 0.9% 2-15 Same as: l 15:00: BD Spearman 00 Posiflush Sterile Vancomycin 2013-08 No 2001 mg: Me moria 6.67 MG/ML 2-15 infuse l Injectable 15:00: over 2.5 Her raya Solution 00 hours Docusate 2013-08 No Notes: Memoria 2-15 (Same as: l 15:00: Colace) (Do Not Crush) Cefazolin 2013-08 No 2 gm, Memoria 2-15 [...] gm, Memoria 2-15 Route: l 14:35: IVPB, Spearman 00 ONCE, Dosing Weight 52.273, kg, Start date: 07/15/14 8:35:00, Duration: 1 doses or times, Stop date: 07/15/14 8:35:00 Benadryl 2013-08 No Notes: Memoria 2-15 (Same as: l 14:21: Benadryl) Metoclopram 2013-08 No Notes: Grant elise miriam 10 MG 2-15 (Same as: l Oral Tablet 14:21: Reglan) Her raya [Reglan] 00 Take 30 min before meals Benadryl 2013-08 No Notes: Memoria 2-15 (Same as: l 14:21: Benadryl) Metoclopram 2013-08 No Notes: Grant elise miriam 10 MG 2-15 (Same as: l Oral Tablet 14:21: Reglan) Her raya [Reglan] 00 Take 30 min before meals Benadryl 2013-08 No Notes: Memoria 2-15 (Same as: l 14:21: Benadryl) Metoclopram 2013-08 No Notes: Grant elise miriam 10 MG 2-15 (Same as: l Oral Tablet 14:21: Reglan) Her raya [Reglan] 00 Take 30 min before meals Dextrose 2013-08 No 12.5 gm, Memor ia 50% Syringe 2-15 25 mL, l 14:19: Route: Spearman 00 IVP, Drug Form: INJ, Dosing Weight 52.273, kg, PRN, PRN Abnormal Lab Result, Start date: 07/15/14 8:19:00, Duration: 30 day, Stop date: 08/14/14 8:18:00 Regular 2013-08 No 60 units) Grant elise Insulin, 2-15 Stable for l Human 100 14:19: [facility] Injectable temperatur Solution e [...] a 2-15 (Same As: l 14:19: Dulcolax, Spearman Bisco-Lax) Acetaminoph 2013-08 No Notes: Do M emoria en 325 MG / 2-15 not exceed l Hydrocodone 14:19: 4gm/day of Spearman Bitartrate 00 acetaminop 10 MG Oral hen. (Same Tablet as: [place] 325/10) Acetaminoph 2013-08 No Notes: Grant elise en 325 MG / 2-15 (Same as: l Hydrocodone 14:19: [place] Randi nn Bitartrate 00 325/5) Do 5 MG Oral not exceed Tablet 4gm/day of acetaminop hen. Morphine 2013-08 No Notes: Memoria 2-15 (Same l 14:19: as:MORPhin Spearman 00 e Sulfate) Sodium 2013-08 No 1,000 mL, Memori a Chloride 2-15 Rate: 100 l 0.154 14:19: ml/hr, Spearman MEQ/ML 00 Infuse Injectable over: 10 Solution hr, Route: IV, Dosing Weight 52.273 kg, Total Volume: 1,000, Start date: 07/15/14 8:19:00, Duration: 30 day, Stop date: 08/14/14 8:18:00 Dextrose 2013-08 No 12.5 gm, Memor ia 50% Syringe 2-15 25 mL, l 14:19: Route: Spearman 00 IVP, Drug Form: INJ, Dosing Weight [...] 0.9% 2-15 Same as: l 14:19: BD Delta 00 Posiflush Sterile Labetalol 2013-08 No 10 [...] a 2-15 (Same As: l 14:19: Dulcolax, Spearman 00 Bisco-Lax) Acetaminoph 2013-08 No Notes: Do M emoria en 325 MG / 2-15 not exceed l Hydrocodone 14:19: 4gm/day of Spearman Bitartrate 00 acetaminop 10 MG Oral hen. (Same Tablet as: [place] 325/10) Acetaminoph 2013-08 No Notes: Grant elise en 325 MG / 2-15 (Same as: l Hydrocodone 14:19: [place] Randi nn Bitartrate 00 325/5) Do 5 MG Oral not exceed Tablet 4gm/day of acetaminop hen. Morphine 2013-08 No Notes: Memoria 2-15 (Same l 14:19: as:MORPhin Spearman 00 e Sulfate) Sodium 2013-08 No 1,000 mL, Memori a Chloride 2-15 Rate: 100 l 0.154 14:19: ml/hr, Spearman MEQ/ML 00 Infuse Injectable over: 10 Solution hr, Route: IV, Dosing Weight 52.273 kg, Total Volume: 1,000, Start date: 07/15/14 8:19:00, Duration: 30 day, Stop date: 08/14/14 8:18:00 Dextrose 2013-08 No 12.5 gm, Memor ia 50% Syringe 2-15 25 mL, l 14:19: Route: Delta 00 IVP, Drug Form: INJ, [...] 0.9% 2-15 Same as: l 14:19: BD Spearman 00 Posiflush Sterile Labetalol 2013-08 No 10 mg, 2 Grant elise 2-15 mL, Route: l 14:19: IVP, Drug Spearman 00 form: INJ, Q15Min, Dosing Weight 52.273, kg, PRN See Nurse's Notes, Start date: 07/15/14 8:19:00, Duration: 30 day, Stop date: 08/14/14 8:18:00, HTN Hydralazine 2013-08 No Notes: Grant elise 2-15 (Same as: l 14:19: Apresoline Spearman 00 ) Push over 5 minutes Ondansetron 2013-08 No Notes: Grant elise 2-15 (Same as: l 14:19: Zofran) Spearman 00 Bisacodyl 2013-08 No Notes: Memori a 2-15 (Same As: l 14:19: Dulcolax, Spearman 00 Bisco-Lax) Acetaminoph 2013-08 No Notes: Do M emoria en 325 MG / 2-15 not exceed l Hydrocodone 14:19: 4gm/day of Spearman Bitartrate 00 acetaminop 10 MG Oral hen. (Same Tablet as: [place] 325/10) Acetaminoph 2013-08 No Notes: Grant elise en 325 MG / 2-15 (Same as: l Hydrocodone 14:19: [place] Randi nn Bitartrate 00 325/5) Do 5 MG Oral not exceed Tablet 4gm/day of acetaminop hen. Morphine 2013-08 No Notes: Memoria 2-15 (Same l 14:19: as:MORPhin Spearman 00 e Sulfate) Sodium 2013-08 No 1,000 mL, Memori a Chloride 2-15 Rate: 100 l 0.154 14:19: ml/hr, Spearman MEQ/ML 00 Infuse Injectable over: 10 Solution hr, Route: IV, Dosing Weight 52.273 kg, Total Volume: 1,000, Start date: 07/15/14 8:19:00, Duration: 30 day, Stop date: 08/14/14 8:18:00 Ondansetron 2013-08 No Notes: Grant elise 2-15 (Same as: l 13:34: Zofran) Delta 00 Promethazin 2013-08 No 6.25 mg, Me moria e 2-15 Route: l 13:34: IVPB, Spearman 00 ONCE, Dosing Weight 52.273, kg, PRN Nausea & Vomiting, Start date: 07/15/14 7:34:00 Hydromorpho 2013-08 No 0.5 mg, Mem oria ne 2-15 Route: l 13:34: IVP, Spearman 00 Q5Min, Dosing Weight 52.273, kg, PRN [...] moria e 2-15 Route: l 13:34: IVPB, Spearman 00 ONCE, Dosing Weight 52.273, kg, PRN Nausea & Vomiting, Start date: 07/15/14 7:34:00 Hydromorpho 2013-08 No 0.5 mg, Mem oria ne 2-15 Route: l 13:34: IVP, Spearman 00 Q5Min, Dosing Weight 52.273, kg, PRN [...] moria e 2-15 Route: l 13:34: IVPB, Delta 00 ONCE, Dosing Weight 52.273, kg, PRN Nausea & Vomiting, Start date: 07/15/14 7:34:00 Hydromorpho 2013-08 No 0.5 mg, Mem oria ne 2-15 Route: l 13:34: IVP, Spearman 00 Q5Min, Dosing Weight 52.273, kg, PRN [...] PO, l Hydrochlori 21:00: Q6H, to be Spearman de 25 MG 00 taken with Oral [...] PO, l Hydrochlori 21:00: Q6H, to be Spearman de 25 MG 00 taken with Oral [...] ne 0-06 (Same as: l 18:40: Dilaudid) Spearman Benadryl 2013-08 No Notes: Memoria 0-06 (Same as: l 18:40: Benadryl) Delta 00 Reglan 2013-08 No Notes: Memoria 0-06 (Same as: l 18:40: Reglan) Delta 00 NS 1,000 mL 2013-08 No Special Mem oria 0-06 Instructio l 18:40: ns: Bolus Delta Dose Hydromorpho 2013-08 No Notes: Grant elise ne 0-06 (Same as: l 18:40: Dilaudid) Spearman Benadryl 2013-08 No Notes: Memoria 0-06 (Same as: l 18:40: Benadryl) Spearman 00 Reglan 2013-08 No Notes: Memoria 0-06 (Same as: l 18:40: Reglan) Spearman 00 NS 1,000 mL 2013-08 No Special Mem oria 0-06 Instructio l 18:40: ns: Bolus Spearman 00 Dose Hydromorpho 2013-08 No Notes: Grant elise ne 0-06 (Same as: l 18:40: Dilaudid) Spearman Benadryl 2013-08 No Notes: Memoria 0-06 (Same as: l 18:40: Benadryl) Delta 00 Reglan 2013-08 No Notes: Memoria 0-06 (Same as: l 18:40: Reglan) Spearman 00 NS 1,000 mL 2013-08 No Special Mem oria 0-06 Instructio l 18:40: ns: Bolus Delta 00 Dose vancomycin 2012-08 No Zoran 1 gm, Grant elise 08-02 [place] Route: l 04:00: Rosales IVPB, Drug Spearman 00 form: INJ, [id number], Dosing Weight 51.364, kg, For 65 - 90kg, Start date: 06/01/13 23:00:00, Duration: 30 day, Stop date: 06/30/13 23:00:00(S john As: Vancocin) vancomycin 2012-08 No Zoran 1 gm, Grant elise 08-02 [place] Route: l 04:00: Rosales IVPB, Drug Spearman form: INJ, [id number], Dosing Weight 51.364, kg, For 65 - 90kg, Start date: 06/01/13 23:00:00, Duration: 30 day, Stop date: 06/30/13 23:00:00(S john As: Vancocin) vancomycin 2012-08 No Zoran 1 gm, Grant elise 08-02 [place] Route: l 04:00: Rosales IVPB, Drug Spearman 00 form: INJ, [id number], Dosing Weight 51.364, kg, For 65 - 90kg, Start date: 06/01/13 23:00:00, Duration: 30 day, Stop date: 06/30/13 23:00:00(S john As: Vancocin) Pepcid 20 2012-08 Yes Zoran 20 mg, 1 Me moria mg oral 08-01 [place] tab, PO, l tablet 15:08: Rosales BID, 60 Spearman 57 tab, Substituti on Allowed Pepcid 20 2012-08 Yes Zoran 20 mg, 1 Me moria mg oral 08-01 [place] tab, PO, l tablet 15:08: Rosales BID, 60 Delta 57 tab, Substituti on Allowed Pepcid 20 2012-08 Yes Zoran 20 mg, 1 Me moria mg oral 08-01 [place] tab, PO, l tablet 15:08: Rosales BID, 60 Spearman 57 tab, Substituti on Allowed dexamethaso 2012-08 [...] l mg oral 15:07: Rosales BID, 20 Spearman capsule 32 cap, Substituti on Allowed docusate 2012-08 Yes Zoran 100 mg, 1 Me moria sodium 100 08-01 [place] cap, PO, l mg oral 15:07: Rosales BID, 20 Delta capsule 32 cap, Substituti on Allowed [place] 2012-08 Yes Zoran 2 tab, PO, Grant elise 10/325 oral 08-01 [place] Q4H, PRN, l tablet 15:07: Rosales 120 tab, Delta 17 as needed for pain, Substituti on Allowed, Maintenanc e, TAB [place] 2012-08 Yes Zoran 2 tab, PO, Grant elise 10/325 oral - [place] Q4H, PRN, l tablet 15:07: Rosales 120 tab, Spearman 17 as needed for pain, Substituti on Allowed, Maintenanc e, TAB [place] 2012-08 Yes Zoran 2 tab, PO, Grant elise 10/325 oral - [place] Q4H, PRN, l tablet 15:07: Rosales 120 tab, Spearman 17 as needed for pain, Substituti on [...] 2012-08 No Zoran 4 mg, 1 M emoria ne 08-01 [place] mL, Route: l 05:00: Rosales IVP, Drug Spearman form: INJ, Q6H, Dosing Weight 51.364, kg, Start date: 06/01/13 0:00:00, Duration: 30 day, Stop date: 06/30/13 18:00:00Co ncentratio n: 4mg/ml dexamethaso 2012-08 No Zoran 4 mg, 1 M [facility] 08-01 [place] mL, Route: l 05:00: Rosales IVP, Drug Spearman 00 form: INJ, Q6H, Dosing Weight 51.364, kg, Start date: 06/01/13 0:00:00, Duration: 30 day, Stop date: 06/30/13 18:00:00Co ncentratio n: 4mg/ml dexamethaso 2012-08 No Zoran 4 mg, 1 M [facility] 08-01 [place] mL, Route: l 05:00: Rosales [...] Camila 2 gm, Mem oria + Sodium - Madhuri [place] Route: l Chloride 04:00: IVPB, Delta 0.9% IV 500 00 ONCE, mL Dosing Weight 51.364, kg, For 70 - 90kg., Start date: 05/31/13 23:00:00, Stop date: 05/31/13 23:00:00(S john As: Vancocin) Vancomycin FOR IV SET ONLY vancomycin 2012-08 No Camila 2 gm, Mem oria + Sodium 1- Madhuri [place] Route: l Chloride 04:00: IVPB, Spearman 0.9% IV 500 00 ONCE, mL Dosing Weight 51.364, kg, For 70 - 90kg., Start date: 05/31/13 23:00:00, Stop date: 05/31/13 23:00:00(S john As: Vancocin) Vancomycin FOR IV SET ONLY Dilaudid 2012-08 No Jillian 0.2 mg, Grant leise 1-01 Elliott 0.1 mL, l 03:05: Route: IV, Spearman 00 Drug form: INJ, Q3H, Dosing Weight 51.364, kg, PRN Pain, Start date: 05/31/13 22:05:00, Duration: 30 day, Stop date: 06/30/13 22:04:00(S john as: Dilaudid) Dilaudid 2012-08 No Jillian 0.2 mg, Grant elise 1-01 Elliott 0.1 mL, l 03:05: Route: IV, Delta 00 Drug form: INJ, Q3H, Dosing Weight 51.364, kg, PRN Pain, Start date: 05/31/13 22:05:00, Duration: 30 day, Stop date: 06/30/13 22:04:00(S john as: Dilaudid) Dilaudid 2012-08 No Jillian 0.2 mg, Grant elise 1-01 Elliott 0.1 mL, l 03:05: Route: IV, Spearman 00 Drug form: INJ, Q3H, Dosing Weight 51.364, kg, PRN Pain, Start date: 05/31/13 22:05:00, Duration: 30 day, Stop date: 06/30/13 22:04:00(S john as: Dilaudid) [place] 2012-08 No Jillian 1 tab, Memoria 10/325 oral 08-01 Elliott Route: PO, l tablet 03:04: Drug Form: Randi nn 00 TAB, Dosing Weight 51.364, kg, Q4H, PRN Pain, Start date: 05/31/13 22:04:00, Duration: 30 day, Stop date: 06/30/13 22:03:00Do not exceed 4gm/day of acetaminop hen. (Same as: [place] 325/10) [place] 2012-08 No Jillian 1 tab, Memoria oral 08-01 Elliott Route: PO, l tablet 03:04: Drug Form: Randi nn 00 TAB, Dosing Weight 51.364, kg, Q4H, PRN Pain, Start date: 05/31/13 22:04:00, Duration: 30 day, Stop date: 06/30/13 22:03:00Do not exceed 4gm/day of acetaminop hen. (Same as: [place] ) [place] 2012-08 No Jillian 1 tab, Memoria oral 08-01 Elliott Route: PO, l tablet 03:04: Drug Form: Randi nn 00 TAB, Dosing Weight 51.364, kg, Q4H, PRN Pain, Start date: 05/31/13 22:04:00, Duration: 30 day, Stop date: 06/30/13 22:03:00Do not exceed 4gm/day of acetaminop hen. (Same as: [place] ) cefepime 2012-08 No Zoran 1 gm, Memori a 08-01 [place] Route: l 03:00: Rosales IVPB, Drug Spearman 00 form: INJ, Q8H, Dosing Weight 51.364, kg, (CrCl >/= 50 ml/min), Start date: 05/31/13 22:00:00, Duration: 30 day, Stop date: 06/30/13 14:00:00(S john As: Maxipime) cefepime 2012-08 No Zoran 1 gm, Memori a 08-01 [place] Route: l 03:00: Rosales IVPB, Drug Spearman 00 form: INJ, Q8H, Dosing Weight 51.364, kg, (CrCl >/= 50 ml/min), Start date: 05/31/13 22:00:00, Duration: 30 day, Stop date: 06/30/13 14:00:00(S john As: Maxipime) cefepime 2012-08 No Zoran 1 gm, Memori a 08-01 [place] Route: l 03:00: Rosales IVPB, Drug Spearman 00 form: INJ, Q8H, Dosing Weight 51.364, kg, (CrCl >/= 50 ml/min), Start date: 05/31/13 22:00:00, Duration: 30 day, Stop date: 06/30/13 14:00:00(S john As: Maxipime) docusate 2012-08 No Camila 100 mg, 1 M emoria 08-01 Madhuri [place] cap, l 02:00: Route: PO, Spearman 00 Drug form: CAP, Q12H, Dosing Weight [...] 8.6 mg, 1 Memoria mg oral 08-01 Mdahuri [place] tab, l tablet 02:00: Route: PO, [...] Madhuri [place] cap, l 02:00: Route: PO, Spearman 00 Drug form: CAP, Q12H, Dosing Weight [...] 00:00: IVPB, Drug Delta 00 form: INJ, [id number], Dosing Weight 51.364, kg, For 65 - 90kg, Start date: 05/31/13 19:00:00, Duration: 30 day, Stop date: 06/29/13 19:00:00(S john As: Vancocin) vancomycin 2012-08 No Camila 1 gm, Mem oria 1 Madhuri [place] Route: l 00:00: IVPB, Drug Delta 00 form: INJ, [id number], Dosing Weight 51.364, kg, For 65 - 90kg, Start date: 05/31/13 19:00:00, Duration: 30 day, Stop date: 06/29/13 19:00:00(S john As: Vancocin) vancomycin 2012-08 No Camila 1 gm, Mem oria 08-01 Madhuri [place] Route: l 00:00: IVPB, Drug Delta 00 form: INJ, [id number], Dosing Weight 51.364, kg, For 65 - 90kg, Start date: 05/31/13 19:00:00, Duration: 30 day, Stop date: 06/29/13 19:00:00(S john As: Vancocin) [place] 5/325 2012-08 No Jillian 1 tab, Me moria oral tablet 0-31 Elliott Route: PO, l 23:51: Drug Form: Spearman 00 TAB, Dosing Weight 51.364, kg, Q4H, PRN Pain, Start date: 05/31/13 18:51:00, Duration: 30 day, Stop date: 06/30/13 18:50:00(S john as: [place] 325/5) Do not exceed 4gm/day of acetaminop [...] not exceed 4 gm/day. (Same as: Tylenol) [place] 5/325 2012-08 No Jillian 1 tab, Me moria oral tablet 0-31 Elliott Route: PO, l 23:51: Drug Form: Spearman 00 TAB, Dosing Weight 51.364, kg, Q4H, PRN Pain, Start date: 05/31/13 18:51:00, Duration: 30 day, Stop date: 06/30/13 18:50:00(S john as: [place] 325/5) Do not exceed 4gm/day of acetaminop hen. Zofran 2012-08 No Camila 4 mg, 2 Memor ia 0-31 Madhuri [place] mL, Route: l 23:51: IVP, Drug form: INJ, Q8H, Dosing Weight 51.364, kg, [...] [place] mL, Route: l 23:51: IVP, Drug 00 form: INJ, Q2H, Dosing Weight 51.364, kg, PRN Pain, Start date: 05/31/13 18:51:00, Duration: 30 day, Stop date: 06/30/13 18:50:00(S john as:MORPhin e Sulfate) acetaminoph 2012-08 No Camila 650 mg, 2 Memoria en 0-31 Madhuri [place] tab, l 23:51: Route: PO, 00 Drug form: TAB, Q6H, Dosing Weight 51.364, kg, PRN Fever, Start date: 05/31/13 18:51:00, Duration: 30 day, Stop date: 06/30/13 18:50:00Do not exceed 4 gm/day. (Same as: Tylenol) [place] 5/325 2012-08 No Jillian 1 tab, Me moria oral tablet 0-31 Elliott Route: PO, l 23:51: Drug Form: Spearman 00 TAB, Dosing Weight 51.364, kg, Q4H, PRN Pain, Start date: 05/31/13 18:51:00, Duration: 30 day, Stop date: 06/30/13 18:50:00(S john as: [place] 325/5) Do not exceed 4gm/day of acetaminop hen. Zofran 2012-08 No Camila 4 mg, 2 Memor ia 0-31 Madhuri [place] mL, Route: l 23:51: IVP, Drug form: INJ, Q8H, Dosing Weight 51.364, kg, PRN Nausea, Start date: 05/31/13 18:51:00, Duration: 30 day, Stop date: 06/30/13 18:50:00(S john as: Zofran) hydrALAZINE 2012-08 No Camila 10 mg, 0.5 Memoria 0-31 Madhuri [place] mL, Route: l 23:51: IVP, Drug Spearman 00 form: INJ, Q2H, Dosing Weight 51.364, [...] Madhuri [place] Route: l 23:50: IVP, Drug Form: INJ, Dosing Weight 51.364, kg, PRN, PRN Line Flush, Start date: 05/31/13 18:50:00, Duration: 30 day, Stop date: 06/30/13 17:49:00(S john as: BD Posiflush) Sodium 2012-08 No Camila 1,000 mL, Mem oria Chloride 0-31 Madhuri [place] Rate: 50 l 0.9% IV 23:50: ml/hr, Spearman 1,000 mL 00 Infuse over: 20 hr, Route: IV, Dosing Weight 51.364 kg, Total Volume: 1,000, Start date: 05/31/13 18:50:00, Duration: 30 day, Stop date: 06/30/13 18:49:00 vancomycin 2012-08 No Camila 2 gm, Mem oria + Sodium 0-31 Madhuri [place] Route: l Chloride 23:50: IVPB, Spearman 0.9% IV 500 00 ONCE, mL Dosing Weight 51.364, kg, For 70 - 90kg., Start date: 05/31/13 18:50:00, Stop date: 05/31/13 18:50:00(S john As: Vancocin) Vancomycin FOR IV SET ONLY Saline 2012-08 No Camila 5 ml, Memoria Flush 0.9% 0-31 Madhuri [place] Route: l 23:50: IVP, Drug Spearman 00 Form: INJ, Dosing Weight 51.364, kg, [...] gm, Mem oria + Sodium 0-31 Madhuri [place] Route: l Chloride 23:50: IVPB, Spearman 0.9% IV 500 00 ONCE, mL Dosing Weight 51.364, kg, For 70 - 90kg., Start date: 05/31/13 18:50:00, Stop date: 05/31/13 18:50:00(S john As: Vancocin) Vancomycin FOR IV SET ONLY Saline 2012-08 No Camila 5 ml, Memoria Flush 0.9% 0-31 Madhuri [place] Route: l 23:50: IVP, Drug Delta 00 [...] gm, Mem oria + Sodium 0-31 Madhuri [place] Route: l Chloride 23:50: IVPB, Delta 0.9% IV 500 00 ONCE, mL Dosing Weight 51.364, kg, For 70 - 90kg., Start date: 05/31/13 18:50:00, Stop date: 05/31/13 18:50:00(S john As: Vancocin) Vancomycin FOR IV SET ONLY fentanyl 2012-08 No Zoran 50 Memoria 0-31 [place] microgram, l 23:01: Rosales Route: Spearman 00 IVP, ONCE, Dosing Weight 51.364, kg, Priority: STAT, Start date: 05/31/13 18:01:00, Stop date: 05/31/13 18:01:00 fentanyl 2012-08 No Zoran 50 Memoria 0-31 [place] microgram, l 23:01: Rosales Route: Spearman 00 IVP, ONCE, Dosing Weight 51.364, kg, [...] Pb 0.5 mL, l 21:30: Christina Route: Delta 00 IVPB, Drug form: INJ, ONCE, Dosing Weight 51.364, kg, Priority: STAT, Start date: 05/31/13 16:30:00, Stop date: 05/31/13 16:30:00(S john as: Phenergan) Phenergan 2012-08 No Remi 12.5 mg, M emoria 0-31 Pb 0.5 mL, l 21:30: Christina Route: Spearman 00 IVPB, Drug form: INJ, ONCE, Dosing Weight 51.364, kg, Priority: STAT, Start date: 05/31/13 16:30:00, Stop date: 05/31/13 16:30:00(S john as: Phenergan) Phenergan 2012-08 No Remi 12.5 mg, M emoria 0-31 Pb 0.5 mL, l 21:30: Christina Route: Delta 00 IVPB, Drug form: INJ, ONCE, Dosing [...] l 8.85% oral 12:10: Abdunnur PO, ONCE, Spearman liquid 22 PRN, 1 mL, 1, 1, [...] raya capsule 20 cap, Substituti on Allowed [place] 2012-08 Yes Jd 2 tab, PO, Memor ia 10/325 oral 0-13 Sebastian Q4H, PRN, l tablet 12:10: Abdunnur 120 tab, Her raya 18 as needed for pain, Substituti on Allowed, Maintenanc e, TAB [place] 2012-08 Yes Jd 2 tab, PO, Memor ia 10/325 oral 0-13 Sebastian Q4H, PRN, l tablet 12:10: Abdunnur 120 tab, Her raya 18 as needed for pain, Substituti on Allowed, Maintenanc e, TAB [place] 2012-08 Yes Jd 2 tab, PO, Memor [...] date: 06/11/13 8:00:00Con centration : 4mg/ml dexamethaso 2012- No Jd 4 mg, 1 Me moria ne 0-12 Sebastian mL, Route: l 21:00: Abdunnur IVP, Drug Herm dorothy 00 form: INJ, Q8H, Dosing Weight 51.364, kg, Start date: 05/12/13 16:00:00, Duration: 30 day, Stop date: 06/11/13 8:00:00Con centration : 4mg/ml dexamethaso 2012- No Jd 4 mg, 1 Me moria [...] Stop date: 06/11/13 14:01:00(S john as: Benadryl) [place] 2012-08 No Jd 2 tab, Memoria 10/325 oral 0-12 Sebastian Route: PO, l tablet 14:00: Abdunnur Drug Form: H ermann 00 TAB, Dosing Weight 51.364, kg, Q4H, Start date: 05/12/13 9:00:00, Duration: 30 day, Stop date: 06/11/13 5:00:00Do not exceed 4gm/day of acetaminop hen. (Same as: [place] ) [place] 2012-08 No Jd 2 tab, Memoria 10/325 oral 0-12 Sebastian Route: PO, l tablet 14:00: Abdunnur Drug Form: H ermann 00 TAB, Dosing Weight 51.364, kg, Q4H, Start date: 05/12/13 9:00:00, Duration: 30 day, Stop date: 06/11/13 5:00:00Do not exceed 4gm/day of acetaminop hen. (Same as: [place] ) [place] 2012-08 No Jd 2 tab, Memoria 10/325 oral 0-12 Sebastian Route: PO, l tablet 14:00: Abdunnur Drug Form: H ermann 00 TAB, Dosing Weight 51.364, kg, Q4H, Start date: 05/12/13 9:00:00, Duration: 30 day, Stop date: 06/11/13 5:00:00Do not exceed 4gm/day of acetaminop hen. (Same as: [place] ) [place] 2012-08 No Jd 2 tab, Memoria 10/325 oral 0-12 Sebastian Route: PO, l tablet 13:00: Abdunnur Drug Form: H ermann 00 TAB, Dosing Weight 51.364, kg, Q4H, Start date: 05/12/13 8:00:00, Duration: 30 day, Stop date: 06/11/13 4:00:00 [place] 2012-08 No Dj 2 tab, Memoria 10/325 oral 0-12 Sebastian Route: PO, l tablet 13:00: Abdunnur Drug Form: H ermann 00 TAB, Dosing Weight 51.364, kg, Q4H, Start date: 05/12/13 8:00:00, Duration: 30 day, Stop date: 06/11/13 4:00:00 [place] 2012-08 No Jd 2 tab, Memoria 10/325 [...] mL, l 11:47: Abdunnur Route: IV, Her raay 00 Drug form: INJ, Q3H, Dosing Weight 51.364, kg, PRN Pain, Start date: 05/12/13 6:47:00, Duration: 30 day, Stop date: 06/11/13 6:46:00(Sa me as: Dilaudid) Benadryl 2012-08 No [place] 25 mg, 0.5 Memoria 0-11 n Randolph mL, Route: l 19:16: IVP, Drug Delta 00 form: INJ, ONCE, Dosing Weight 51.364, kg, Start date: 05/11/13 14:16:00, Stop date: 05/11/13 14:16:00(S john as: Benadryl) Benadryl 2012-08 No [place] 25 mg, 0.5 Memoria 0-11 n Randolph mL, Route: l 19:16: IVP, Drug Spearman 00 form: INJ, ONCE, Dosing Weight 51.364, kg, Start date: 05/11/13 14:16:00, Stop date: 05/11/13 14:16:00(S john as: Benadryl) Benadryl 2012-08 No [place] 25 mg, 0.5 Memoria 0-11 n Randolph mL, Route: l 19:16: IVP, Drug Spearman 00 form: INJ, ONCE, Dosing Weight 51.364, [...] 30 day, Stop date: 06/10/13 11:33:00Ch loraseptic Plummer (Same as: Chlorasept ic, Sore Throat Plummer) phenol 2012-08 No Angeline 1 spray, Memor ia topical 0-11 Jemal Route: l 1.4% spray 16:34: Gabi MUCOUS He rmann 00 MEM, Q6H, Drug form: SPRY, PRN Sore Throat, Start date: 05/11/13 11:34:00, Duration: 30 day, Stop date: 06/10/13 11:33:00Ch loraseptic Plummer (Same as: Chlorasept ic, Sore Throat Plummer) phenol 2012-08 No Angeline 1 spray, Memor ia topical 0- Jemal Route: l 1.4% spray 16:34: Gabi MUCOUS He rmann 00 MEM, Q6H, Drug form: SPRY, PRN Sore Throat, Start date: 05/11/13 11:34:00, Duration: 30 day, Stop date: 06/10/13 11:33:00Ch loraseptic Plummer (Same as: Chlorasept ic, Sore Throat Plummer) ketorolac 2012-08 No Jui-En 15 mg, 1 [...] Rajiv 0.07 mL, l units/mL 10:19: Route: Delta human 00 SUB-Q, recombinant Drug form: SOLN, [...] Rajiv 0.07 mL, l units/mL 10:19: Route: Delta human 00 SUB-Q, recombinant Drug form: SOLN, [...] Rajiv 0.07 mL, l units/mL 10:19: Route: Delta human 00 SUB-Q, recombinant Drug form: SOLN, [...] Dorothy Rajiv 12.5 mL, l 10:19: Route: Spearman IVP, Drug Form: INJ, Dosing Weight 51.364, [...] Jeff mL, Route: l 09:00: IVPB, Drug Spearman 00 form: INJ, Q2H, Start date: 05/10/13 [...] Jeff mL, Route: l 09:00: IVPB, Drug Delta 00 form: INJ, Q2H, Start date: 05/10/13 [...] Jeff mL, Route: l 09:00: IVPB, Drug Spearman 00 form: INJ, Q2H, Start date: 05/10/13 [...] Route: l 05:00: Abdunnur IVP, Drug Herm dorohty 00 form: INJ, Q6H, Dosing Weight 51.364, [...] Sodium 0-10 Route: l Chloride 02:09: IVPB, Delta 0.9% IV 100 00 [id number], mL Dosing Weight 51.364, kg, Priority: NOW, Start date: 05/09/13 21:09:00, Duration: 30 day, Stop date: 06/08/13 11:00:00Sa me as Keppra Mix with 100ml NS, LR, or D5W levetiracet 2012-08 No Sylvia Sundeep 500 mg, Memoria am + Sodium 0-10 Route: l Chloride 02:09: IVPB, Spearman 0.9% IV 100 00 [id number], mL Dosing Weight 51.364, kg, Priority: NOW, Start date: 05/09/13 21:09:00, Duration: 30 day, Stop date: 06/08/13 11:00:00Sa me as Keppra Mix with 100ml NS, LR, or D5W levetiracet 2012-08 No Sylvia Sundeep 500 mg, Memoria am + Sodium 0-10 Route: l Chloride 02:09: IVPB, Spearman 0.9% IV 100 00 [id number], mL Dosing Weight 51.364, kg, Priority: NOW, Start date: 05/09/13 21:09:00, Duration: 30 day, Stop date: 06/08/13 11:00:00Sa me as Keppra Mix with 100ml NS, LR, or D5W docusate 2012-08 No Jui-En 100 mg, 1 Me moria 0-10 Edward Adkins cap, l 02:00: Route: PO, Spearman 00 Drug form: CAP, Q12H, Dosing Weight [...] am 0-10 tab, l 02:00: Route: PO, Delta 00 Drug form: TAB, Q12H, Dosing Weight 51.364, kg, Start date: 05/09/13 21:00:00, Duration: 30 day, Stop date: 06/08/13 9:00:00(Sa me as:Keppra) Saline 2012-08 No Jui-En 5 ml, Memoria Flush 0.9% 0-10 Edward Adkins Route: l 02:00: IVP, Drug Form: INJ, Dosing Weight 51.364, kg, Q12H, Start date: 05/09/13 21:00:00, Duration: 30 day, Stop date: 06/08/13 9:00:00(Sa me as: BD Posiflush) docusate 2012-08 No Jui-En 100 mg, 1 Me moria 0-10 Edward Adkins cap, l 02:00: Route: PO, Spearman 00 Drug form: CAP, Q12H, Dosing Weight [...] Edward Adkins tab, l 02:00: Route: PO, Spearman 00 Drug Form: TAB, Dosing Weight 51.364, [...] Edward Adkins Route: l 02:00: IVP, Drug Form: INJ, Dosing Weight 51.364, kg, Q12H, Start date: 05/09/13 21:00:00, Duration: 30 day, Stop date: 06/08/13 9:00:00(Sa me as: BD Posiflush) docusate 2012-08 No Jui-En 100 mg, 1 Me moria 0-10 Edward Adkins cap, l 02:00: Route: PO, Spearman 00 Drug form: CAP, Q12H, Dosing Weight [...] am 0-10 tab, l 02:00: Route: PO, Spearman 00 Drug form: TAB, Q12H, Dosing Weight 51.364, kg, Start date: 05/09/13 21:00:00, Duration: 30 day, Stop date: 06/08/13 9:00:00(Sa me as:Keppra) Saline 2012-08 No Jui-En 5 ml, Memoria Flush 0.9% 0-10 Edward Adkins Route: l 02:00: IVP, Drug Spearman 00 Form: INJ, Dosing Weight 51.364, kg, Q12H, Start date: 05/09/13 21:00:00, Duration: 30 day, Stop date: 06/08/13 9:00:00(Sa ky as: BD Posiflush) Phenergan 2012-08 No Sylvia Sundeep 12.5 mg, Memoria 0-09 0.5 mL, l 23:31: Route: Spearman 00 IVPB, Drug form: INJ, Q4H, Dosing Weight 51.364, kg, PRN Nausea & Vomiting, Start date: 05/09/13 18:31:00, Duration: 30 day, Stop date: 06/08/13 18:30:00Do not give IV push. (Same as: Phenergan) Reglan 2012-08 No Sylvia Sundeep 10 mg, 2 M emoria 0-09 mL, Route: l 23:31: IVP, Drug Spearman 00 form: INJ, Q6H, Dosing Weight 51.364, kg, PRN Nausea & Vomiting, Start date: 05/09/13 18:31:00, Duration: 30 day, Stop date: 06/08/13 18:30:00(S john as: Reglan) Phenergan 2012-08 No Sylvia Sundeep 12.5 mg, Memoria 0-09 0.5 mL, l 23:31: Route: Spearman 00 IVPB, Drug form: INJ, Q4H, Dosing Weight 51.364, kg, PRN Nausea & Vomiting, Start date: 05/09/13 18:31:00, Duration: 30 day, Stop date: 06/08/13 18:30:00Do not give IV push. (Same as: Phenergan) Reglan 2012-08 No Sylvia Sundeep 10 mg, 2 M emoria 0-09 mL, Route: l 23:31: IVP, Drug Spearman 00 form: INJ, Q6H, Dosing Weight 51.364, kg, PRN Nausea & Vomiting, Start date: 05/09/13 18:31:00, Duration: 30 day, Stop date: 06/08/13 18:30:00(S john as: Reglan) Phenergan 2012-08 No Sylvia Sundeep 12.5 mg, Memoria 0-09 0.5 mL, l 23:31: Route: Spearman 00 IVPB, Drug form: INJ, Q4H, Dosing [...] date: 06/08/13 18:30:00(S john as: Reglan) cefazolin 2012-08 No Jui-En 1 gm, Memor ia (SCIP) 0 Edward Adkins Route: l 23:00: IVPB, Drug Spearman 00 form: PDR/INJ, [id number], Dosing Weight 51.364, [...] ne 0-09 tab, l 23:00: Route: PO, Spearman 00 Drug form: TAB, Q6H, Dosing Weight [...] ne 0-09 tab, l 23:00: Route: PO, Spearman 00 Drug form: TAB, Q6H, Dosing Weight 51.364, kg, Start date: 05/09/13 18:00:00, Duration: 30 day, Stop date: 06/08/13 12:00:00Gi ve with food. (Same As: Decadron) cefazolin 2012-08 No Jui-En 1 gm, Memor ia (SCIP) 0 Edward Adkins Route: l 21:00: IVPB, Drug Spearman 00 form: PDR/INJ, ABXQ8H, Dosing Weight 51.364, kg, Start date: 05/09/13 16:00:00, Duration: 1 day, Stop date: 05/10/13 8:00:00(Sa me As: Ancef, Kefzol) cefazolin 2012-08 No Jui-En 1 gm, Memor ia (SCIP) 0- Edward Adkins Route: l 21:00: IVPB, Drug Delta 00 form: PDR/INJ, ABXQ8H, Dosing Weight 51.364, kg, Start date: 05/09/13 16:00:00, Duration: 1 day, Stop date: 05/10/13 8:00:00( me As: Ancef, Kefzol) cefazolin 2012-08 No Jui-En 1 gm, Memor ia (SCIP) 0 Edward Adkins Route: l 21:00: IVPB, Drug Delta 00 form: PDR/INJ, ABXQ8H, Dosing Weight 51.364, kg, Start date: 05/09/13 16:00:00, Duration: 1 day, Stop date: 05/10/13 8:00:00([facility] As: Ancef, Kefzol) Zofran 2012-08 No Noah 4 mg, 2 Memori a 0-09 Gee mL, Route: l 20:59: Renick IVP, Drug Randi nn 00 form: INJ, ONCE, Dosing Weight 51.364, kg, PRN Nausea, Start date: 05/09/13 15:59:00(S john as: Zofran) Zofran 2012-08 No Noah 4 mg, 2 Memori a 0-09 Gee mL, Route: l 20:59: Renick IVP, Drug Randi nn 00 form: INJ, ONCE, Dosing Weight 51.364, kg, PRN Nausea, Start date: 05/09/13 15:59:00(S john as: Zofran) Zofran 2012-08 No Noah 4 mg, 2 Memori a 0-09 Gee mL, Route: l 20:59: Renick IVP, Drug Randi nn 00 form: INJ, ONCE, Dosing Weight 51.364, kg, PRN Nausea, Start date: 05/09/13 15:59:00(S john as: Zofran) Zolvit oral 2012-08 No Noah 15 mL, Me moria liquid 0-09 Gee Route: PO, l 20:39: Kiran Dosing Spearman 00 Weight 51.364, kg, ONCE, PRN Pain, one time dose, Start date: 05/09/13 15:39:00 Zolvit oral 2012-08 No Noah 15 mL, Me moria liquid 0-09 Gee Route: PO, l 20:39: Renick Dosing Delta 00 Weight 51.364, kg, ONCE, [...] 0-09 Edward Adkins supp, l 18:10: Route: PA, Spearman 00 Drug form: SUPP, Daily, Dosing Weight [...] Lisa 2 mg, 1 Mem oria Sulfate 0- Dorothy Rajiv mL, Route: l 18:10: IVP, [...] exceed 4gm/day of acetaminop hen. (Same as: [place] 325/10) Saline 2012-08 No Jui-En 5 ml, Memoria Flush 0.9% 0 Edward Adkins Route: l 18:10: IVP, Drug Spearman 00 Form: INJ, Dosing Weight 51.364, kg, [...] No Jui-En 1,000 mL, Grant elise Chloride 0 Adkins Rate: 100 l 0.9% IV 18:10: [...] day, Stop date: 06/08/13 13:09:00(S john as: [place] 325/5) Do not exceed 4gm/day of acetaminop hen. bisacodyl 2012-08 No Jui-En 10 mg, 1 Me moria 0-09 Edward Adkins supp, l 18:10: Route: PA, Spearman 00 Drug form: SUPP, Daily, Dosing Weight [...] Lisa 2 mg, 1 Mem oria Sulfate 0- Dorothy Rajiv mL, Route: l 18:10: IVP, Drug Spearman 00 form: INJ, Q1H, Dosing Weight 51.364, [...] exceed 4gm/day of acetaminop hen. (Same as: [place] 325/10) Saline 2012-08 No Jui-En 5 ml, Memoria Flush 0.9% 0- Edward Adkins Route: l 18:10: IVP, Drug Delta 00 Form: INJ, Dosing Weight 51.364, kg, PRN, PRN Line Flush, Start date: 05/09/13 13:10:00, Duration: 30 day, Stop date: 06/08/13 12:09:00(S john as: BD Posiflush) acetaminoph 2012-08 No Jd 650 mg, Me moria en 0-09 Sebastian 20.3 mL, l 18:10: Abdunnur Route: [...] No Jd 1 tab, Mem oria en-hydrocod 0- Sebastian Route: PO, l one 325 18:10: Abdunnur Drug Form: Spearman mg-5 mg 00 TAB, oral tablet Dosing Weight 51.364, kg, Q4H, PRN Pain Score 1-3, Start date: 05/09/13 13:10:00, Duration: 30 day, Stop date: 06/08/13 13:09:00(S john as: [place] 325/5) Do not exceed 4gm/day of acetaminop hen. bisacodyl 2012-08 No Jui-En 10 mg, 1 Me moria 0-09 Edward Adkins supp, l 18:10: Route: PA, Delta 00 Drug form: SUPP, Daily, Dosing [...] Rajiv mL, Route: l 18:10: IVP, Drug Spearman 00 form: INJ, Q1H, Dosing Weight 51.364, kg, PRN Pain Score 7-10, Start date: 05/09/13 13:10:00, Duration: 30 day, Stop date: 06/08/13 12:09:00(S john as:MORPhin e Sulfate) acetaminoph 2012-08 No Jd 2 tab, Mem oria en-hydrocod 0 Sebastian Route: PO, l one 325 18:10: Abdunnur Drug Form: Spearman mg-10 mg 00 TAB, oral tablet Dosing Weight 51.364, kg, Q4H, PRN Pain Score 7-10, Start date: 05/09/13 13:10:00, Duration: 30 day, Stop date: 06/08/13 13:09:00Do not exceed 4gm/day of acetaminop hen. (Same as: [place] 325/10) Saline 2012-08 No Jui-En 5 ml, Memoria Flush 0.9% 0 Edward Adkins Route: l 18:10: IVP, Drug Spearman 00 Form: INJ, Dosing Weight 51.364, kg, [...] No Jui-En 1,000 mL, Grant elise Chloride 009 Edward Adkins Rate: 100 l 0.9% IV [...] day, Stop date: 06/08/13 13:09:00(S john as: [place] 325/5) Do not exceed 4gm/day of acetaminop hen. ondansetron 2012-08 No Jessica 4 mg, Mem oria 0-09 Gentry Route: l 17:36: Méndez IVP, ONCE, Randi nn 00 Dosing Weight 51.364, kg, PRN Nausea & Vomiting, Start date: 05/09/13 12:36:00 naloxone 2012-08 No Noah 0.04 mg, Mem oria 0-09 Gee Route: l 17:36: Kiran IVP, Delta 00 Q2MIN, Dosing Weight 51.364, kg, PRN Narcotic Reversal, Start date: 05/09/13 12:36:00, Duration: 8 doses or times, Stop date: Limited # of times flumazenil 2012-08 No Noah 0.2 mg, Me moria 0-09 Gee Route: l 17:36: Renick IVP, PRN, Randi nn 00 Dosing Weight 51.364, kg, PRN Benzodiaze pine Reversal, Initial dose, Start date: 05/09/13 12:36:00, Duration: 30 day, Stop date: 06/08/13 11:35:00 hydromorpho 2012-08 No Noah 0.5 mg, Marisol sethria ne 0-09 Gee Route: l 17:36: Renick IVP, Delta 00 Q5Min, Dosing Weight 51.364, [...] Mem oria 0-09 Gee Route: l 17:36: Renick IVP, Spearman 00 Q2MIN, Dosing Weight 51.364, kg, PRN [...] 11:35:00 hydromorpho 2012-08 No Noah 0.5 mg, Marisol sethria ne 0-09 Gee Route: l 17:36: Kiran IVP, Spearman 00 Q5Min, Dosing Weight 51.364, kg, PRN [...] Mem oria 0-09 Gee Route: l 17:36: Renick IVP, Delta 00 Q2MIN, Dosing Weight 51.364, kg, PRN Narcotic Reversal, Start date: 05/09/13 12:36:00, Duration: 8 doses or times, Stop date: Limited # of times flumazenil 2012-08 No Noah 0.2 mg, Me moria 0-09 Gee Route: l 17:36: Renick IVP, PRN, Randi nn 00 Dosing Weight 51.364, kg, PRN Benzodiaze pine Reversal, Initial dose, Start date: 05/09/13 12:36:00, Duration: 30 day, Stop date: 06/08/13 11:35:00 hydromorpho 2012-08 No Noah 0.5 mg, M emoria ne 0-09 Gee Route: l 17:36: Renick IVP, Spearman 00 Q5Min, Dosing Weight 51.364, kg, PRN [...] 1 day, Stop date: 05/09/13 22:59:00 Vicodin 2012-08 No 2 tab, PO, Me moria mg-300 mg 0-08 Q6H, PRN, l oral tablet 16:29: as needed H ermann 11 for pain, Substituti on Allowed, Maintenanc e, TAB Vicodin 2012-08 No 2 tab, PO, Me moria mg-300 mg 0-08 Q6H, PRN, l oral tablet 16:29: as needed H ermann 11 for pain, Substituti on Allowed, Maintenanc e, TAB Vicodin 2012-08 No 2 tab, PO, Me moria [...] Immunizations Ordered Filled Immunization Date Status Comments Sourc e Immunization Name Name Tdap 2018-06-02 Completed [facility] 00:[facility]00 [facility] Influenza Virus 2018-05-16 Completed [facility] Vaccine Quad .5 mL 00:00:00 [facility] 6+ [place] [facility] Vital Signs Vital Name Observation Time Observation Value Comments Source Heart Rate 2014-10-31 17:17:00 [facility] Delta Respitory Rate 2014-10-31 17:17:00 Memori al Delta Systolic (mm Hg) 2014-10-31 17:17:00 Grant rial Delta Diastolic (mm Hg) 2014-10-31 17:17:00 Mem orial Delta Temperature Oral (F) 2014-10-31 17:17:00 98.3 F [facility] Delta Systolic (mm Hg) 2014-10-31 14:16:00 Grant rial Spearman Diastolic (mm Hg) 2014-10-31 14:16:00 Mem orial Delta Respitory Rate 2014-10-31 14:16:00 Memori al Spearman Temperature Oral (F) 2014-10-31 14:16:00 97.4 F [facility] Delta Heart Rate 2014-10-31 14:16:00 [facility] Spearman Respitory Rate 2014-10-31 08:25:00 Memori al Delta Systolic (mm Hg) 2014-10-31 08:25:00 Grant rial Spearman Diastolic (mm Hg) 2014-10-31 08:25:00 Mem orial Delta Heart Rate 2014-10-31 08:25:00 [facility] Spearman Temperature Oral (F) 2014-10-31 08:25:00 98.3 F [facility] Delta Weight 2014-10-29 18:57:00 [facility] Delta BMI Calculated 2014-10-29 18:57:00 Memori al Delta Height 2014-10-29 18:57:00 165.1 cm [facility] Delta BMI Calculated 2014-10-29 11:46:00 Memori al Spearman Weight 2014-10-29 11:46:00 [facility] Spearman Height 2014-10-29 11:46:00 165.1 cm [facility] Spearman Systolic (mm Hg) 2014-07-16 13:10:00 Grant rial Spearman Temperature Oral (F) 2014-07-16 13:10:00 97.7 F [facility] Spearman Heart Rate 2014-07-16 13:10:00 [facility] Delta Respitory Rate 2014-07-16 13:10:00 Memori al Delta Diastolic (mm Hg) 2014-07-16 13:10:00 Mem orial Spearman Heart Rate 2014-07-16 10:41:00 [facility] Spearman Respitory Rate 2014-07-16 10:41:00 Memori al Delta Systolic (mm Hg) 2014-07-16 10:41:00 Grant rial Edlta Temperature Oral (F) 2014-07-16 10:41:00 98 F [facility] Spearman Diastolic (mm Hg) 2014-07-16 10:41:00 Mem orial Spearman Systolic (mm Hg) 2014-07-16 06:01:00 Grant rial Spearman Respitory Rate 2014-07-16 06:01:00 Memori al Spearman Diastolic (mm Hg) 2014-07-16 06:01:00 Mem orial Spearman Temperature Oral (F) 2014-07-16 06:01:00 97.5 F [facility] Spearman Heart Rate 2014-07-16 06:01:00 [facility] Spearman Height 2014-07-11 20:53:00 165.1 cm [facility] Delta BMI Calculated 2014-07-11 20:53:00 Memori al Delta Weight 2014-07-11 20:53:00 [facility] Delta Height 2014-05-15 19:36:00 165.1 cm [facility] Delta Weight 2014-05-15 19:36:00 [facility] Delta BMI Calculated 2014-05-15 19:36:00 Memori al Spearman Temperature Oral (F) 2014-05-06 21:16:00 98.6 F [facility] Spearman Heart Rate 2014-05-06 21:16:00 [facility] Spearman Respitory Rate 2014-05-06 21:16:00 Memori al Delta Systolic (mm Hg) 2014-05-06 21:16:00 Grant rial Spearman Diastolic (mm Hg) 2014-05-06 21:16:00 Mem orial Spearman Weight 2014-05-06 18:09:00 [facility] Spearman Diastolic (mm Hg) 2014-05-06 18:09:00 Mem orial Spearman Temperature Oral (F) 2014-05-06 18:09:00 98.2 F [facility] Spearman Systolic (mm Hg) 2014-05-06 18:09:00 Grant rial Spearman Respitory Rate 2014-05-06 18:09:00 Memori al Delta Heart Rate 2014-05-06 18:09:00 [facility] Spearman Weight 2013-06-05 14:57:00 [facility] Delta Height 2013-06-05 14:57:00 162.56 cm [facility] Delta Respitory Rate 2013-06-01 21:24:00 Memori al Spearman Heart Rate 2013-06-01 21:24:00 [facility] Delta Temperature Oral (F) 2013-06-01 21:24:00 96.7 F [facility] Spearman Diastolic (mm Hg) 2013-06-01 21:24:00 Mem orial Spearman Systolic (mm Hg) 2013-06-01 21:24:00 Grant rial Spearman Diastolic (mm Hg) 2013-06-01 16:52:00 Mem orial Spearman Heart Rate 2013-06-01 16:52:00 [facility] Delta Respitory Rate 2013-06-01 16:52:00 Memori al Delta Systolic (mm Hg) 2013-06-01 16:52:00 Grant rial Spearman Temperature Oral (F) 2013-06-01 16:52:00 98.7 F [facility] Delta Temperature Oral (F) 2013-06-01 13:33:00 98.4 F [facility] Delta Diastolic (mm Hg) 2013-06-01 13:33:00 Mem orial Delta Heart Rate 2013-06-01 13:33:00 [facility] Spearman Respitory Rate 2013-06-01 13:33:00 Memori al Delta Systolic (mm Hg) 2013-06-01 13:33:00 Grant rial Spearman Height 2013-05-31 20:26:00 165.1 cm [facility] Spearman Weight 2013-05-31 20:26:00 [facility] Delta Respitory Rate 2013-05-13 16:19:00 Memori al Spearman Heart Rate 2013-05-13 16:19:00 [facility] Delta Temperature Oral (F) 2013-05-13 16:19:00 96.8 F [facility] Delta Diastolic (mm Hg) 2013-05-13 16:19:00 Mem orial Spearman Systolic (mm Hg) 2013-05-13 16:19:00 Grant rial Spearman Respitory Rate 2013-05-13 14:11:00 Memori al Spearman Diastolic (mm Hg) 2013-05-13 14:11:00 Mem orial Delta Systolic (mm Hg) 2013-05-13 14:11:00 Grant rial Delta Heart Rate 2013-05-13 14:11:00 [facility] Spearman Temperature Oral (F) 2013-05-13 14:11:00 96.9 F [facility] Delta Temperature Oral (F) 2013-05-13 10:30:00 98.4 F [facility] Spearman Respitory Rate 2013-05-13 10:30:00 Memori al Delta Systolic (mm Hg) 2013-05-13 10:30:00 Grant rial Delta Heart Rate 2013-05-13 10:30:00 [facility] Spearman Diastolic (mm Hg) 2013-05-13 10:30:00 Mem orial Delta Weight 2013-05-09 11:49:00 [facility] Spearman Height 2013-05-09 11:49:00 165.1 cm [facility] Delta Weight 2013-05-08 16:29:00 [facility] Spearman Height 2013-05-08 16:29:00 165.1 cm [facility] Spearman Heart Rate 2013-04-04 12:54:00 [facility] Spearman Temperature Oral (F) 2013-04-04 12:54:00 97.7 F [facility] Delta Diastolic (mm Hg) 2013-04-04 12:54:00 Mem orial Delta Systolic (mm Hg) 2013-04-04 12:54:00 Grant rial Delta Respitory Rate 2013-04-04 12:54:00 Memori al Delta Respitory Rate 2013-04-04 02:39:00 Memori al Spearman Systolic (mm Hg) 2013-04-04 02:39:00 Grant rial Delta Diastolic (mm Hg) 2013-04-04 02:39:00 Mem orial Delta Temperature Oral (F) 2013-04-04 02:39:00 97.5 F [facility] Spearman Weight 2013-04-03 14:28:00 [facility] Delta Height 2013-04-03 14:28:00 172.72 cm [facility] Spearman Procedures Procedure Date / Time Performed Performing Clinician [facility] e [id number] 2022-07-01 00:00:00 JAGJIT [facility] s [id number] 2021-03-03 00:00:00 NATY [facility] Other Excision or 2013-05-09 05:00:00 [facility] H ermann Destruction of Lesion or Tissue of Brain Other Immobilization, 2013-05-09 05:00:00 Memori al Spearman Pressure, and Attention to Wound Fenestration of cyst of [facility] arachnoid Delivery [facility] Encounters Start End Encounter Admission Attending Care Care Encounter Source Date/Time Date/Time Type Type Clinicians Facility Department ID 2022-12-18 Outpatient nullFlavo [facility] [id number] Memoria 04:07:27 r Medical 06 l [facility] 2021-07-10 Outpatient nullFlavo [facility] [id number] Memoria 19:18:53 r Medical 06 l [facility] 2020-12-04 Inpatient LAUREL Calderon, [facility] [id number] [facility] 10:52:23 Maria [facility] 2022-07-01 2022-07-03 Inpatient EM Jhon, [facility] OB [id number] [facility] 11:40:00 17:08:00 Camila [facility] 2022-05-21 2022-05-21 Outpatient GC_TNC_Lovi PRIV PRIV [id number] [facility] 00:00:00 00:00:00 tt_S [id number] Medica l 2022-04-29 2022-04-29 Outpatient GC_TNC_Lovi PRIV PRIV [id number] [facility] 00:00:00 00:00:00 tt_S [id number] Medica l 2022-04-29 2022-04-29 Merrill Damon [facility] [id number] [facility] 00:00:00 00:00:00 Son Zamudio MD: [id number] GC_TNC_Sout [facility], Office* [address], [place] [address] , Ph. 2022-04-28 2022-04-28 Outpatient GC_TNC_Lovi PRIV PRIV [id number] [facility] 00:00:00 00:00:00 tt_S [id number] Medica l 2022-01-14 2022-01-14 Outpatient GC_TNC_Lovi PRIV PRIV [id number] [facility] 00:00:00 00:00:00 tt_S [id number] Medica l 2020-05-09 2020-05-09 Outpatient BRUNA Allen ADMI [id number] [facility] 14:00:00 14:00:00 Iveth 65 [facility] 2019-01-26 2019-01-26 Patient Doctor LUANN Barfield.[id number] [facility] 00:00:00 00:00:00 Secure Msg Unassigned, ANNE [id number] ity of [facility] [id number] Dragan as [phone] [address] 2019-01-26 2019-01-26 Patient Doctor LUANN Barfield.[id number] 00:00:00 00:00:00 Secure Msg Unassigned, ANNE [id number] [place] [id number] 2016-04-27 2016-04-28 Outpt Diag nullFlavo [facility] [id number] Memoria 15:36:00 04:59:00 Services r Outpatient 09 l Imaging [facility] 2016-04-27 2016-04-28 Outpt Diag nullFlavo [facility] [id number] Memoria 15:36:00 04:59:00 Services r Outpatient 09 l [facility] 2016-04-27 2016-04-27 Outpatient Gotti, MHOIP MHOIP [id number] 10:36:00 23:59:00 Raisa Leida Kimorlando 2015-10-28 2015-10-28 Outpatient MHIE MHIE [id number] Memoria 10:00:00 10:00:00 02 iva MccabeDelta 2015-10-28 2015-10-28 Outpatient MHIE MHIE [id number] [facility] 10:00:00 10:00:00 02 iva Sorenson 2015-10-14 2015-10-14 Outpatient MHIE MHIE [id number] Memoria 10:30:00 10:30:00 01 iva Sorenson 2015-10-14 2015-10-14 Outpatient MHIE MHIE [id number] Memoria 10:30:00 10:30:00 01 iva MccabeDelta 2015-04-28 2015-04-29 Outpt Diag nullFlavo [facility] [id number] Memoria 15:17:00 04:59:00 Services r Outpatient 07 l Imaging [facility] 2015-04-28 2015-04-29 Outpt Diag nullFlavo [facility] [id number] Memoria 15:17:00 04:59:00 Services r Outpatient 07 l [facility] 2015-04-28 2015-04-28 Outpatient Jeff, [facility] [id number] 10:17:00 23:59:00 Feliciano 07 2015-04-28 2015-04-28 Outpatient IE [facility] [id number] Memoria 12:00:00 12:00:00 00 [facility] 2015-04-28 2015-04-28 Outpatient IE [facility] [id number] Memoria 12:00:00 12:00:00 00 [facility] 2014-10-29 2014-10-31 Inpatient nullFlavo [facility] [id number] Memoria 10:47:00 20:30:[address] 2014-10-29 2014-10-31 Inpatient nullFlavo [facility] [id number] Memoria 10:47:00 20:30:[address] 2014-10-29 2014-10-31 Outpatient [place], 2.16.840. 2.16.840.1 . [id number] 05:47:00 15:30:00 Chanel [id number]. [id number] Genoveva 3.615.0.1 5.0.867 35 0089-01-23 2014-08-24 Outpt Diag nullFlavo [facility] [id number] Memoria 19:12:00 05:59:00 Services r Outpatient 04 l Imaging [facility] 2014-08-23 2014-08-24 Outpt Diag nullFlavo [facility] [id number] Memoria 19:12:00 05:59:00 Services r Outpatient 04 l Imaging [facility] 2014-08-23 2014-08-23 Outpatient Jeff, 2.16.840. 2.16.840.1. 4 [id number] 13:12:00 23:59:00 Feliciano [id number]. [id number] 04 3.615.0.1 5.0.165 00 9866-01-22 2014-08-23 Outpt Diag nullFlavo [facility] [id number] Memoria 19:39:00 05:59:00 Services r Outpatient 03 l [facility] 2014-08-22 2014-08-23 Outpt Diag nullFlavo [facility] [id number] Memoria 19:39:00 05:59:00 Services r Outpatient 03 l [facility] 2014-08-22 2014-08-22 Outpatient Jeff, 2.16.840. 2.16.840.1. 4 [id number] 13:39:00 23:59:00 Feliciano [id number]. [id number] 03 3.615.0.1 5.0.993 53 1247-12-15 2014-07-16 Inpatient nullFlavo [facility] [id number] [facility] 11:37:00 17:10:[address] 2014-07-15 2014-07-16 Inpatient nullFlavo [facility] [id number] [facility] 11:37:00 17:10:[address] 2014-07-15 2014-07-16 Outpatient Jeff, 2.16.840. 2.16.840.1. 4 [id number] 05:37:00 11:10:00 Feliciano 1.474632. [id number] 09 3.615.0.1 5.0.726 24 7758-10-15 2014-05-16 Outpatient nullFlavo [facility] [id number] Mem[facility] 17:58:00 04:59:[address] 2014-05-15 2014-05-16 Outpatient nullFlavo [facility] [id number] Memoria 17:58:00 04:59:[address] 2014-05-15 2014-05-15 Outpatient Hope, 2.16.840. 2.16.840.1. 4 [id number] 12:58:00 23:59:00 [place] [id number]. [id number] 08 Lopez 3.615.0.1 5.0.669 55 3774-10-06 2014-05-06 EC nullFlavo [facility] [id number] Memoria 17:40:00 21:19:00 Emergency r [address] 2014-05-06 2014-05-06 EC nullFlavo [facility] [id number] Memoria 17:40:00 21:19:00 Emergency r [address] 2014-05-06 2014-05-06 Outpatient [place], 2.16.840. 2.16.840.1. [id number] 12:40:00 16:19:00 Indio Reynolds [id number]. [id number] 07 3.615.0.1 5.0.775 97 8540-12-12 2013-07-12 Outpatient 2.16.840. 2.16.840.1. 4 [id number] 11:24:00 23:59:00 1.848144. [id number] Outpati 3.615.0.1 5.0.100 ent 00 [facility] 2013-06-05 2013-06-05 Outpatient 2.16.840. 2.16.840.1. 4 [id number] [facility] 08:08:00 23:59:00 1.588237. [id number] l 3.615.0.1 5.0.100 Sundeep n 00 Hospita l 2013-05-31 2013-06-01 OU nullFlavo [facility] [id number] Memoria 15:25:00 18:20:[address] 2013-05-31 2013-06-01 Outpatient 2.16.840. 2.16.840.1. 4 [id number] [facility] 15:25:00 18:20:00 1.955885. [id number] l 3.615.0.1 5.0.100 Sundeep n 00 Hospita l 2013-05-31 2013-06-01 OU nullFlavo [facility] [id number] Memoria 15:25:00 18:20:[address] 2013-05-09 2013-05-13 Inpatient nullFlavo [facility] [id number] Memoria 05:45:00 13:00:[address] 2013-05-09 2013-05-13 Outpatient 2.16.840. 2.16.840.1. 4 [id number] [facility] 05:45:00 13:00:00 1.826093. [id number] l 3.615.0.1 5.0.100 Sundeep n 00 Hospita 2013-05-09 2013-05-13 Outpatient 2.16.840. 2.16.840.1. 4 [id number] [facility] 05:45:00 13:00:00 1.141202. [id number] l 3.615.0.1 5.0.100 Sundeep n 00 Hospita 2013-05-09 2013-05-13 Outpatient 2.16.840. 2.16.840.1. 4 [id number] [facility] 05:45:00 13:00:00 1.177552. [id number] l 3.615.0.1 5.0.100 Sundeep n 00 Hospita 2013-05-09 2013-05-13 Outpatient 2.16.840. 2.16.840.1. 4 [id number] [facility] 05:45:00 13:00:00 1.185767. [id number] l 3.615.0.1 5.0.100 Sundeep n 00 Hospita 2013-05-09 2013-05-13 Outpatient 2.16.840. 2.16.840.1. 4 [id number] [facility] 05:45:00 13:00:00 [id number]. [id number] l 3.615.0.1 5.0.100 [facility] 2013-05-09 2013-05-13 Inpatient nullFlavo [facility] [id number] Memoria 05:45:00 13:00:[address] [place] [address] 2013-04-03 2013-04-04 ALVA nullFlavo [facility] [id number] Memoria 09:16:00 10:10:[address] [place] [address] 2013-04-03 2013-04-04 ALVA nullFlavo [facility] [id number] Memoria 09:16:00 10:10:[address] Results Test Description Test Time Test Comments Results Result Comments Source HGB HCT 2022-07-02 08:22:00 Test Item Value Reference Range Interpretation Comme nts HEMOGLOBIN (test code = HGB) 11.5 g/dL 10.1-13.8 N HEMATOCRIT (test code = HCT) 34.6 % 32.5-41.8 N AG HEPATITIS B [id number] 13:12:00 Test Item Value Reference Range Interpretation Comments AG HEPATITIS B SURFACE (test code NONREACTIVE NONREACTIVE = HBSAG) AB HEPATITIS C [id number] 13:12:00 Test Item Value Reference Range Interpretation Comments AB HEPATITIS C (test code = NONREACTIVE NONREACTIVE HCVAB) SIGNAL TO CUTOFF (test code = 0.14 <0.80 N CUTOFF) AB [id number] 13:12:00 Test Item Value Reference Range Interpretation Comments AB TREPONEMA (test code = TREPAB) NONREACTIVE NONREACTIVE AB HIV 1 13:12:00 Test Item Value Reference Range Interpretation Comments AB HIV 1 2 (test NONREACTIVE NONREACTIVE [facility] = [id number]) 4th Gen HIV Ag/Ab Combo Screen COMPREHENSIVE METABOLIC [id number] 12:23:00 Test Item Value Reference Range Interpretation [...] recommended for rufino for GFRby the [facility] for Adults.The GFR will [...] TOTAL (test code = ALKP) CBC W/AUTO [id number] 11:48:00 Test Item Value Reference Range Interpretation [...] (test NORMAL NORMAL code = PLTMR) HGB [id number] 08:39:00 Test Item Value Reference Range Interpretation Comments HEMOGLOBIN (test code = HGB) 10.2 g/dL 10.1-13.8 N HEMATOCRIT (test code = HCT) 31.6 % 32.5-41.8 L AG HEPATITIS B [id number] 14:39:00 Test Item Value Reference Range Interpretation Comments AG HEPATITIS B SURFACE (test code NONREACTIVE NONREACTIVE = HBSAG) AB HEPATITIS C [id number] 14:39:00 Test Item Value Reference Range Interpretation Comments AB HEPATITIS C (test code = NONREACTIVE NONREACTIVE HCVAB) SIGNAL TO CUTOFF (test code = <0.02 <0.80 N CUTOFF) AB [id number] 14:39:00 Test Item Value Reference Range Interpretation Comments AB TREPONEMA (test code = TREPAB) NONREACTIVE NONREACTIVE AB HIV 1 14:39:00 Test Item Value Reference Range Interpretation Comments AB HIV 1 2 (test NONREACTIVE NONREACTIVE [facility] = [id number]) 4th Gen HIV Ag/Ab Combo Screen AG HEPATITIS B [id number] 14:16:00 Test Item Value Reference Range Interpretation Comments AG HEPATITIS B SURFACE (test code NONREACTIVE NONREACTIVE = HBSAG) AB HEPATITIS C [id number] 14:16:00 Test Item Value Reference Range Interpretation Comments AB HEPATITIS C (test code = HCVAB) NONREACTIVE SIGNAL TO CUTOFF (test code = CUTOFF) <0.80 AB [id number] 14:16:00 Test Item Value Reference Range Interpretation Comments AB TREPONEMA (test code = TREPAB) NONREACTIVE NONREACTIVE AB HIV 1 14:16:00 Test Item Value Reference Range Interpretation Comments AB HIV 1 2 (test code = YJB92OT) NONREACTIVE CBC W/AUTO [id number] 13:10:00 Test Item Value Reference Range Interpretation [...] REQUIRED (test NORMAL NORMAL code = PLTMR) GJMMHBHGDI0929-45-72 09:20:00 Test Item Value Reference Range Interpretation Comments MCH (test code = MCH) 29.4 pg 27.0-31.0 [facility]ItnpaoyQFSNCJUKQQ7330-95-93 09:20:00 Test Item Value Reference Range Interpretation Comments MCHC (test code = MCHC) 33.1 32.0-36.0 [facility] CenterPjgiiggBFFDNCWISF4689-42-21 09:20:00 Test Item Value Reference Range Interpretation Comments Hgb (test code = Hgb) 12.1 12.0-16.0 [facility] CenterGzvlvxdURTMHNWQZL6612-95-21 09:20:00 Test Item Value Reference Range Interpretation Comments RBC (test code = RBC) 4.13 4.20-5.40 [facility] CenterGxqjaeqMHPGHJVNSC5864-09-66 09:20:00 Test Item Value Reference Range Interpretation Comments Hct (test code = Hct) 36.7 36.0-48.0 [facility] CenterSffadgkTENIVLGXST4904-85-14 09:20:00 Test Item Value Reference Range Interpretation Comments MCV (test code = MCV) 89.0 80.0-98.0 [facility] CenterKzokgdoQPJUPMJTOX6611-05-87 09:20:00 Test Item Value Reference Range Interpretation Comments RDW (test code = RDW) 12.1 11.5-14.5 [facility] CenterSrkpgoaHJAHLWBMCT2654-13-98 09:20:00 Test Item Value Reference Range Interpretation Comments Platelet (test code = Platelet) 244 133-450 [facility] CenterFegbdgeADZQHLFRVD0741-36-93 09:20:00 Test Item Value Reference Range Interpretation Comments MPV (test code = MPV) 8.8 7.4-10.4 [facility] CenterOgiuubkNDBDKZYVZF1203-66-54 09:20:00 Test Item Value Reference Range Interpretation Comments WBC (test code = WBC) 16.2 3.7-10.4 [facility] CenterHvgjybqMMIQZNMCOM0151-25-54 09:20:00 Test Item Value Reference Range Interpretation Comments Lymphocytes # (test code = Lymphocytes 1.9 1.0-5.5 #) [facility] CenterVwqsfgaRWDVGKYRRC2939-28-30 09:20:00 Test Item Value Reference Range Interpretation Comments Monocytes # (test code 1.2 See_Comment [Aut omated message] The = Monocytes #) system which generated this result tra nsmitted reference range : <=0.8. The reference r joan was not used to int erpret this result as normal/abnormal . [facility] CenterWresimjCQLSZWOICO7810-90-48 09:20:00 Test Item Value Reference Range Interpretation Comments Monocytes (test code = Monocytes) 7.7 2.0-12.0 [facility] CenterMhpclbuBOXPOCBYAP1551-16-74 09:20:00 Test Item Value Reference Range Interpretation Comments Basophils (test code = 0.1 See_Comment [Aut omated message] The Basophils) system which ge nerated this result tra nsmitted reference range : <=1.0. The reference r joan was not used to int erpret this result as normal/abnormal . [facility] CenterQwqlnmbOAYUQLBTQB4684-60-63 09:20:00 Test Item Value Reference Range Interpretation Comments Eosinophils (test code = 0.2 See_Comment [A utomated message] The Eosinophils) system which ge nerated this result tra nsmitted reference range : <=4.0. The reference r joan was not used to int erpret this result as normal/abnormal . [facility] CenterHgcxuyyEFCVZCKHQN3075-32-12 09:20:00 Test Item Value Reference Range Interpretation Comments Segs-Bands # (test code = Segs-Bands #) 13.0 1.5-8.1 [facility] CenterSlqrbzbFHXZXOCFYF3380-73-79 09:20:00 Test Item Value Reference Range Interpretation Comments Lymphocytes (test code = Lymphocytes) 11.6 20.0-40.0 [facility] CenterZdwsymmLKKOCKSYQJ9571-64-89 09:20:00 Test Item Value Reference Range Interpretation Comments Segs (test code = Segs) 80.4 45.0-75.0 [facility] CenterCeghlxjFAGIQDCMKM3964-63-04 09:20:00 Test Item Value Reference Range Interpretation Comments MCH (test code = MCH) 29.4 pg 27.0-31.0 [facility] CenterIcxgwupFXEGZYVKGZ1998-96-31 09:20:00 Test Item Value Reference Range Interpretation Comments MCHC (test code = MCHC) 33.1 32.0-36.0 [facility] CenterEgueclwLVBTSPEHFL0544-45-60 09:20:00 Test Item Value Reference Range Interpretation Comments Hgb (test code = Hgb) 12.1 12.0-16.0 [facility] CenterMetqiywZMNJXAUHDP6860-89-89 09:20:00 Test Item Value Reference Range Interpretation Comments RBC (test code = RBC) 4.13 4.20-5.40 [facility] CenterOorfzsrOXEDLGNPMA8469-39-60 09:20:00 Test Item Value Reference Range Interpretation Comments Hct (test code = Hct) 36.7 36.0-48.0 [facility] CenterTdubmdfSQPFSYZDVL9298-00-36 09:20:00 Test Item Value Reference Range Interpretation Comments MCV (test code = MCV) 89.0 80.0-98.0 [facility] CenterJzhgzipSCRNYNJWWE0694-44-49 09:20:00 Test Item Value Reference Range Interpretation Comments RDW (test code = RDW) 12.1 11.5-14.5 [facility] CenterEabbkapELPZFCWWEZ1376-05-31 09:20:00 Test Item Value Reference Range Interpretation Comments Platelet (test code = Platelet) 244 133-450 [facility] CenterVnicfawYOIZPPUARZ2396-22-06 09:20:00 Test Item Value Reference Range Interpretation Comments MPV (test code = MPV) 8.8 7.4-10.4 [facility] CenterFqlwvwaLNQNAQMRFG5567-81-75 09:20:00 Test Item Value Reference Range Interpretation Comments WBC (test code = WBC) 16.2 3.7-10.4 [facility] CenterErebrttFKQXBGHKET8375-91-16 09:20:00 Test Item Value Reference Range Interpretation Comments Lymphocytes # (test code = Lymphocytes 1.9 1.0-5.5 #) [facility] CenterFnichecDDBQNTLTPR5190-89-50 09:20:00 Test Item Value Reference Range Interpretation Comments Monocytes # (test code 1.2 See_Comment [Aut omated message] The = Monocytes #) system which generated this result tra nsmitted reference range : <=0.8. The reference r joan was not used to int erpret this result as normal/abnormal . [facility] CenterNhsuhydNVLNXJVHYE9485-50-35 09:20:00 Test Item Value Reference Range Interpretation Comments Monocytes (test code = Monocytes) 7.7 2.0-12.0 [facility] CenterLjhysbfXUZUDGLLQM0551-55-38 09:20:00 Test Item Value Reference Range Interpretation Comments Basophils (test code = 0.1 See_Comment [Aut omated message] The Basophils) system which ge nerated this result tra nsmitted reference range : <=1.0. The reference r joan was not used to int erpret this result as normal/abnormal . [facility] CenterEvvvttqABGMYVCGNU0043-84-59 09:20:00 Test Item Value Reference Range Interpretation Comments Eosinophils (test code = 0.2 See_Comment [A utomated message] The Eosinophils) system which ge nerated this result tra nsmitted reference range : <=4.0. The reference r joan was not used to int erpret this result as normal/abnormal . [facility] CenterGcqvxhbGHLHDOONXY7578-43-39 09:20:00 Test Item Value Reference Range Interpretation Comments Segs-Bands # (test code = Segs-Bands #) 13.0 1.5-8.1 [facility] CenterZviecthCUCBJOHCOP6250-28-79 09:20:00 Test Item Value Reference Range Interpretation Comments Lymphocytes (test code = Lymphocytes) 11.6 20.0-40.0 [facility] CenterZyeztnxVZDGFMKIIN5734-92-92 09:20:00 Test Item Value Reference Range Interpretation Comments Segs (test code = Segs) 80.4 45.0-75.0 [facility] CenterYtbstszXLJEBXKNYI8867-96-11 09:20:00 Test Item Value Reference Range Interpretation Comments MCH (test code = MCH) 29.4 pg 27.0-31.0 [facility] CenterAwsreyxYDUURUHYGI9679-10-51 09:20:00 Test Item Value Reference Range Interpretation Comments MCHC (test code = MCHC) 33.1 32.0-36.0 [facility] CenterPipkmtdLSRQGSDNYM2239-79-53 09:20:00 Test Item Value Reference Range Interpretation Comments Hgb (test code = Hgb) 12.1 12.0-16.0 [facility] CenterEplzjjhWNHCBBDJJH6003-25-11 09:20:00 Test Item Value Reference Range Interpretation Comments RBC (test code = RBC) 4.13 4.20-5.40 [facility] CenterLccfbdaJHAVDNNGCL9365-98-20 09:20:00 Test Item Value Reference Range Interpretation Comments Hct (test code = Hct) 36.7 36.0-48.0 [facility] CenterGwssiqvTODEMOXTQL1395-50-58 09:20:00 Test Item Value Reference Range Interpretation Comments MCV (test code = MCV) 89.0 80.0-98.0 [facility] CenterGlrbxjcDMORGCKHKP4456-27-98 09:20:00 Test Item Value Reference Range Interpretation Comments RDW (test code = RDW) 12.1 11.5-14.5 [facility] CenterJfhomiyBQIRKWRESS7814-21-75 09:20:00 Test Item Value Reference Range Interpretation Comments Platelet (test code = Platelet) 244 133-450 [facility] CenterRjjpbhpJLIGAMVKKE6676-84-33 09:20:00 Test Item Value Reference Range Interpretation Comments MPV (test code = MPV) 8.8 7.4-10.4 [facility] CenterUlkfqgdGVUTXYFYJV5539-41-73 09:20:00 Test Item Value Reference Range Interpretation Comments WBC (test code = WBC) 16.2 3.7-10.4 [facility] CenterEzumglnLPKWYUQTDS5221-69-54 09:20:00 Test Item Value Reference Range Interpretation Comments Lymphocytes # (test code = Lymphocytes 1.9 1.0-5.5 #) [facility] CenterSkugxduSLDRSCDEFM4005-92-10 09:20:00 Test Item Value Reference Range Interpretation Comments Monocytes # (test code 1.2 See_Comment [Aut omated message] The = Monocytes #) system which generated this result tra nsmitted reference range : <=0.8. The reference r joan was not used to int erpret this result as normal/abnormal . [facility] CenterWhymealGSRTGWJJOE2687-06-48 09:20:00 Test Item Value Reference Range Interpretation Comments Monocytes (test code = Monocytes) 7.7 2.0-12.0 [facility] CenterEjnngduKUPLGCMRTW3506-86-28 09:20:00 Test Item Value Reference Range Interpretation Comments Basophils (test code = 0.1 See_Comment [Aut omated message] The Basophils) system which ge nerated this result tra nsmitted reference range : <=1.0. The reference r joan was not used to int erpret this result as normal/abnormal . [facility] CenterLbmnztsAOJPBBTGON4982-30-55 09:20:00 Test Item Value Reference Range Interpretation Comments Eosinophils (test code = 0.2 See_Comment [A utomated message] The Eosinophils) system which ge nerated this result tra nsmitted reference range : <=4.0. The reference r joan was not used to int erpret this result as normal/abnormal . [facility] CenterBlafagmLUUZDMCNBS9122-76-37 09:20:00 Test Item Value Reference Range Interpretation Comments Segs-Bands # (test code = Segs-Bands #) 13.0 1.5-8.1 [facility] CenterNsopuxrOUEVXGQWYP1002-11-83 09:20:00 Test Item Value Reference Range Interpretation Comments Lymphocytes (test code = Lymphocytes) 11.6 20.0-40.0 [facility] CenterJplvfyjSYDWPTRAWS0742-22-67 09:20:00 Test Item Value Reference Range Interpretation Comments Segs (test code = Segs) 80.4 45.0-75.0 [facility] CenterQnjrsytJOQBYLHDMP8003-09-08 15:07:00 Test Item Value Reference Range Interpretation Comments MCV (test code = MCV) 89.2 80.0-98.0 [facility] CenterFyvdhanXGWCFYGDOM1161-68-46 15:07:00 Test Item Value Reference Range Interpretation Comments MCH (test code = MCH) 29.5 pg 27.0-31.0 [facility] CenterDczkkpwTCXHWAWAII3774-51-38 15:07:00 Test Item Value Reference Range Interpretation Comments Hct (test code = Hct) 36.7 36.0-48.0 [facility] CenterSvsoegmUGFUPEGSQK4424-70-51 15:07:00 Test Item Value Reference Range Interpretation Comments MCHC (test code = MCHC) 33.1 32.0-36.0 [facility] CenterOjzgfyoEFEPMZMRRH7182-09-45 15:07:00 Test Item Value Reference Range Interpretation Comments RDW (test code = RDW) 12.4 11.5-14.5 [facility] CenterUsikwunEAEZKKQZIS6987-34-66 15:07:00 Test Item Value Reference Range Interpretation Comments RBC (test code = RBC) 4.12 4.20-5.40 [facility] CenterVashbrwJRUMWZVMIP8883-04-97 15:07:00 Test Item Value Reference Range Interpretation Comments WBC (test code = WBC) 11.2 3.7-10.4 [facility] CenterTaifsqdEKUVKCTAHN6021-00-88 15:07:00 Test Item Value Reference Range Interpretation Comments Hgb (test code = Hgb) 12.1 12.0-16.0 [facility] CenterAunhdzaNRYUYKEPOT8090-66-21 15:07:00 Test Item Value Reference Range Interpretation Comments Platelet (test code = Platelet) 188 133-450 [facility] CenterYfvrzbqMOBZWRCISU7530-92-36 15:07:00 Test Item Value Reference Range Interpretation Comments MPV (test code = MPV) 8.8 7.4-10.4 [facility] CenterFfhedinDWPGOCTOIT9239-09-55 15:07:00 Test Item Value Reference Range Interpretation Comments Eosinophils (test code = 0.7 See_Comment [A utomated message] The Eosinophils) system which ge nerated this result tra nsmitted reference range : <=4.0. The reference r joan was not used to int erpret this result as normal/abnormal . [facility] CenterNdmodonDBOSUNDPZT4017-66-60 15:07:00 Test Item Value Reference Range Interpretation Comments Monocytes # (test code 0.3 See_Comment [Aut omated message] The = Monocytes #) system which generated this result tra nsmitted reference range : <=0.8. The reference r joan was not used to int erpret this result as normal/abnormal . [facility] CenterGmlittgDONZOYWPEL8308-49-28 15:07:00 Test Item Value Reference Range Interpretation Comments Lymphocytes # (test code = Lymphocytes 1.9 1.0-5.5 #) [facility] CenterIjiuphbTNZBTYUBEQ8847-32-13 15:07:00 Test Item Value Reference Range Interpretation Comments Basophils (test code = 0.4 See_Comment [Aut omated message] The Basophils) system which ge nerated this result tra nsmitted reference range : <=1.0. The reference r joan was not used to int erpret this result as normal/abnormal . [facility] CenterZhhhyxfGSRPBLLCQW6780-92-68 15:07:00 Test Item Value Reference Range Interpretation Comments Segs-Bands # (test code = Segs-Bands #) 8.9 1.5-8.1 [facility] CenterCjpszmgHYCEPOBPGG6915-04-71 15:07:00 Test Item Value Reference Range Interpretation Comments Monocytes (test code = Monocytes) 3.1 2.0-12.0 [facility] CenterZjjhshnWSWABYSVXE8531-17-85 15:07:00 Test Item Value Reference Range Interpretation Comments Segs (test code = Segs) 79.1 45.0-75.0 [facility] CenterKqwelytOZQARYICLX1322-20-75 15:07:00 Test Item Value Reference Range Interpretation Comments Lymphocytes (test code = Lymphocytes) 16.7 20.0-40.0 [facility] CenterSbinsfyNFUHWZGKFN0746-24-95 15:07:00 Test Item Value Reference Range Interpretation Comments Eosinophils # (test code 0.1 See_Comment [A utomated message] The = Eosinophils #) system whic h generated this result tra nsmitted reference range : <=0.5. The reference r joan was not used to int erpret this result as normal/abnormal . [facility] CenterCybegibXWDRBCQCMF9266-89-86 15:07:00 Test Item Value Reference Range Interpretation Comments MCV (test code = MCV) 89.2 80.0-98.0 [facility] CenterWoaixdvQBJSSNSEXX2532-48-91 15:07:00 Test Item Value Reference Range Interpretation Comments MCH (test code = MCH) 29.5 pg 27.0-31.0 [facility] CenterDsdchunVCVUTMBKRP6324-37-42 15:07:00 Test Item Value Reference Range Interpretation Comments Hct (test code = Hct) 36.7 36.0-48.0 [facility] CenterSxiattrUBMJKUVIBV2290-43-62 15:07:00 Test Item Value Reference Range Interpretation Comments MCHC (test code = MCHC) 33.1 32.0-36.0 [facility] CenterHopnjnjBVVGYLGNQJ3249-99-35 15:07:00 Test Item Value Reference Range Interpretation Comments RDW (test code = RDW) 12.4 11.5-14.5 [facility] CenterAhjtjwbKCFMFREEXC7448-03-04 15:07:00 Test Item Value Reference Range Interpretation Comments RBC (test code = RBC) 4.12 4.20-5.40 [facility] CenterGnoiejeDJCYAGTBJW7396-06-84 15:07:00 Test Item Value Reference Range Interpretation Comments WBC (test code = WBC) 11.2 3.7-10.4 [facility] CenterYtqnterCWLLRBPGLJ4394-96-03 15:07:00 Test Item Value Reference Range Interpretation Comments Hgb (test code = Hgb) 12.1 12.0-16.0 [facility] CenterPuvrulbTZKXOQCKRC2386-62-26 15:07:00 Test Item Value Reference Range Interpretation Comments Platelet (test code = Platelet) 188 133-450 [facility] CenterIwwnogyBDENBBOUZC9790-52-75 15:07:00 Test Item Value Reference Range Interpretation Comments MPV (test code = MPV) 8.8 7.4-10.4 [facility] CenterVwmriyjFAXJIZSLDM0231-81-73 15:07:00 Test Item Value Reference Range Interpretation Comments Eosinophils (test code = 0.7 See_Comment [A utomated message] The Eosinophils) system which ge nerated this result tra nsmitted reference range : <=4.0. The reference r joan was not used to int erpret this result as normal/abnormal . [facility] CenterHcsvvwpKYMUHQEXUH9313-58-79 15:07:00 Test Item Value Reference Range Interpretation Comments Monocytes # (test code 0.3 See_Comment [Aut omated message] The = Monocytes #) system which generated this result tra nsmitted reference range : <=0.8. The reference r joan was not used to int erpret this result as normal/abnormal . [facility] CenterWygspflJRXMOZWUXV4016-93-44 15:07:00 Test Item Value Reference Range Interpretation Comments Lymphocytes # (test code = Lymphocytes 1.9 1.0-5.5 #) [facility] CenterTjqmhdzCODPTAZRTG6150-78-24 15:07:00 Test Item Value Reference Range Interpretation Comments Basophils (test code = 0.4 See_Comment [Aut omated message] The Basophils) system which ge nerated this result tra nsmitted reference range : <=1.0. The reference r joan was not used to int erpret this result as normal/abnormal . [facility] CenterYknogadNZGWSCTUYV9749-16-73 15:07:00 Test Item Value Reference Range Interpretation Comments Segs-Bands # (test code = Segs-Bands #) 8.9 1.5-8.1 [facility] CenterPnoaxffZSGCHPXZDR6369-27-30 15:07:00 Test Item Value Reference Range Interpretation Comments Monocytes (test code = Monocytes) 3.1 2.0-12.0 [facility] CenterIkmihygJKOVEYSHXQ2083-70-58 15:07:00 Test Item Value Reference Range Interpretation Comments Segs (test code = Segs) 79.1 45.0-75.0 [facility] CenterZmgubfyEDRKKABGNS6641-25-59 15:07:00 Test Item Value Reference Range Interpretation Comments Lymphocytes (test code = Lymphocytes) 16.7 20.0-40.0 [facility] CenterDenjtauOJYTASHIOS1291-82-93 15:07:00 Test Item Value Reference Range Interpretation Comments Eosinophils # (test code 0.1 See_Comment [A utomated message] The = Eosinophils #) system whic h generated this result tra nsmitted reference range : <=0.5. The reference r joan was not used to int erpret this result as normal/abnormal . [facility] CenterMespzfcBNLFWNPOAC0892-41-25 15:07:00 Test Item Value Reference Range Interpretation Comments MCV (test code = MCV) 89.2 80.0-98.0 [facility] CenterSflgjnbXSVHVKJCXV5411-66-75 15:07:00 Test Item Value Reference Range Interpretation Comments MCH (test code = MCH) 29.5 pg 27.0-31.0 [place] 699795-03-31 15:07:00 Test Item Value Reference Range Interpretation Comments Hct (test code = Hct) 36.7 36.0-48.0 [facility] CenterOskhukwEFPHCZHBYK8036-88-67 15:07:00 Test Item Value Reference Range Interpretation Comments MCHC (test code = MCHC) 33.1 32.0-36.0 [facility] CenterYucbxpkAFTKYSTJDS0544-85-71 15:07:00 Test Item Value Reference Range Interpretation Comments RDW (test code = RDW) 12.4 11.5-14.5 [place] 699795-03-31 15:07:00 Test Item Value Reference Range Interpretation Comments RBC (test code = RBC) 4.12 4.20-5.40 [facility] CenterGgbpcfjTJBUUIUSYN5235-83-21 15:07:00 Test Item Value Reference Range Interpretation Comments WBC (test code = WBC) 11.2 3.7-10.4 [facility] CenterZqesyjnFNLKRUMCYF5582-83-20 15:07:00 Test Item Value Reference Range Interpretation Comments Hgb (test code = Hgb) 12.1 12.0-16.0 [facility] CenterUryzbexZCCTGHLYOH9027-96-78 15:07:00 Test Item Value Reference Range Interpretation Comments Platelet (test code = Platelet) 188 133-450 [facility] CenterSurniyoIVZLHWJGSC9774-14-90 15:07:00 Test Item Value Reference Range Interpretation Comments MPV (test code = MPV) 8.8 7.4-10.4 [facility] CenterDkisovbHCNREDNZPW4102-68-37 15:07:00 Test Item Value Reference Range Interpretation Comments Eosinophils (test code = 0.7 See_Comment [A utomated message] The Eosinophils) system which ge nerated this result tra nsmitted reference range : <=4.0. The reference r joan was not used to int erpret this result as normal/abnormal . [facility] CenterOkuttiwWZKZJKDUTM5585-06-09 15:07:00 Test Item Value Reference Range Interpretation Comments Monocytes # (test code 0.3 See_Comment [Aut omated message] The = Monocytes #) system which generated this result tra nsmitted reference range : <=0.8. The reference r joan was not used to int erpret this result as normal/abnormal . [facility] CenterUzmipocMACMOSTLWW5213-10-80 15:07:00 Test Item Value Reference Range Interpretation Comments Lymphocytes # (test code = Lymphocytes 1.9 1.0-5.5 #) [facility] CenterEkhpckcREDENFCCES5204-44-14 15:07:00 Test Item Value Reference Range Interpretation Comments Basophils (test code = 0.4 See_Comment [Aut omated message] The Basophils) system which ge nerated this result tra nsmitted reference range : <=1.0. The reference r joan was not used to int erpret this result as normal/abnormal . [facility] CenterFauwsndLWQUQCEGFP6231-13-76 15:07:00 Test Item Value Reference Range Interpretation Comments Segs-Bands # (test code = Segs-Bands #) 8.9 1.5-8.1 [facility] CenterElawbdaUUIMXXJPLG7779-50-20 15:07:00 Test Item Value Reference Range Interpretation Comments Monocytes (test code = Monocytes) 3.1 2.0-12.0 [facility] CenterMkxhrklUIIUPMWLLF3500-52-40 15:07:00 Test Item Value Reference Range Interpretation Comments Segs (test code = Segs) 79.1 45.0-75.0 [facility] CenterImmyvijPIKOVHQNIO9617-48-44 15:07:00 Test Item Value Reference Range Interpretation Comments Lymphocytes (test code = Lymphocytes) 16.7 20.0-40.0 [facility] CenterUitxftqEUCQRFOJFY2420-74-42 15:07:00 Test Item Value Reference Range Interpretation Comments Eosinophils # (test code 0.1 See_Comment [A utomated message] The = Eosinophils #) system whic h generated this result tra nsmitted reference range : <=0.5. The reference r joan was not used to int erpret this result as normal/abnormal . [facility] [employer] JRTJKUR2680-33-32 12:06:00 Test Item Value Reference Range Interpretation Comments Antibody Scrn (test Negative (10/29/14 7:06 code = Antibody Scrn) AM) [facility] [id number] 12:06:00 Test Item Value Reference Range Interpretation Comments ABO/Rh (test code = ABO/Rh) A POS [facility] [employer] JOHFRIF0312-65-65 12:06:00 Test Item Value Reference Range Interpretation Comments Antibody Scrn (test Negative (10/29/14 7:06 code = Antibody Scrn) AM) [facility] [employer] [id number] 12:06:00 Test Item Value Reference Range Interpretation Comments ABO/Rh (test code = ABO/Rh) A POS [facility] [employer]EDit [facility] [id number] 12:06:00 Test Item Value Reference Range Interpretation Comments Antibody Scrn (test Negative (10/29/14 7:06 code = Antibody Scrn) AM) [facility] [employer] [facility] XRJNFZG8667-30-63 12:06:00 Test Item Value Reference Range Interpretation Comments ABO/Rh (test code = ABO/Rh) A POS [facility] [employer] [id number] 16:50:00 Test Item Value Reference Range Interpretation Comments eGFR (test code = eGFR) 121 [facility] [employer] IFYHD4618-78-05 16:50:00 Test Item Value Reference Range Interpretation Comments Chloride Lvl (test code = Chloride Lvl) 105 95-109 [facility] [employer] [id number] 16:50:00 Test Item Value Reference Range Interpretation Comments Potassium Lvl (test code = Potassium 4.3 3.5-5.1 Lvl) [facility] [employer] [id number] 16:50:00 Test Item Value Reference Range Interpretation Comments Sodium Lvl (test code = Sodium Lvl) 143 135-145 [facility] [employer] [id number] 16:50:00 Test Item Value Reference Range Interpretation Comments Creatinine Lvl (test code = Creatinine 0.7 0.5-1.4 Lvl) [facility] [employer] [id number] 16:50:00 Test Item Value Reference Range Interpretation Comments CO2 (test code = CO2) 30 24-32 [facility] [employer] [id number] 16:50:00 Test Item Value Reference Range Interpretation Comments Calcium Lvl (test code = Calcium Lvl) 9.3 8.5-10.5 [facility] [employer] [id number] 16:50:00 Test Item Value Reference Range Interpretation Comments BUN (test code = BUN) 10 7-22 [facility] [employer] [id number] 16:50:00 Test Item Value Reference Range Interpretation Comments Glucose Lvl (test code = Glucose Lvl) 84 70-99 [facility] [employer] [id number] 16:50:00 Test Item Value Reference Range Interpretation Comments AGAP (test code = AGAP) 12.3 10.0-20.0 [id number] 16:50:00 Test Item Value Reference Range Interpretation Comments Monocytes (test code = Monocytes) 4.7 2.0-12.0 [facility] CenterBpnsgjrQPJJACEVVT3791-24-93 16:50:00 Test Item Value Reference Range Interpretation Comments Eosinophils (test code = 1.6 See_Comment [A utomated message] The Eosinophils) system which ge nerated this result tra nsmitted reference range : <=4.0. The reference r joan was not used to int erpret this result as normal/abnormal . [facility] Cent[id number] 16:50:00 Test Item Value Reference Range Interpretation Comments Basophils (test code = 0.6 See_Comment [Aut omated message] The Basophils) system which ge nerated this result tra nsmitted reference range : <=1.0. The reference r joan was not used to int erpret this result as normal/abnormal . [facility] CenterIztqttdNLMOEKTIOX3781-92-79 16:50:00 Test Item Value Reference Range Interpretation Comments Lymphocytes (test code = Lymphocytes) 28.0 20.0-40.0 [facility] Cent[id number] 16:50:00 Test Item Value Reference Range Interpretation Comments Lymphocytes # (test code = Lymphocytes 2.1 1.0-5.5 #) [facility] CenterItrlbcvWGIIDVFBAJ6867-83-99 16:50:00 Test Item Value Reference Range Interpretation Comments Monocytes # (test code 0.4 See_Comment [Aut omated message] The = Monocytes #) system which generated this result tra nsmitted reference range : <=0.8. The reference r joan was not used to int erpret this result as normal/abnormal . [facility] CenterXhrkmflAFXILBYMMO9210-29-18 16:50:00 Test Item Value Reference Range Interpretation Comments Segs-Bands # (test code = Segs-Bands #) 5.0 1.5-8.1 [facility] CenterXvrklfnQHDJCNGHVC8030-65-40 16:50:00 Test Item Value Reference Range Interpretation Comments Eosinophils # (test code 0.1 See_Comment [A utomated message] The = Eosinophils #) system [facility] h generated this result tra nsmitted reference range : <=0.5. The reference r joan was not used to int erpret this result as normal/abnormal . [facility] CenterQmzeysuUMKDBZODLP0109-38-10 16:50:00 Test Item Value Reference Range Interpretation Comments Segs (test code = Segs) 65.1 45.0-75.0 [facility] CenterPmgeookHVCAGRLZIV4032-50-54 16:50:00 Test Item Value Reference Range Interpretation Comments WBC (test code = WBC) 7.6 3.7-10.4 [facility] CenterRcngqjlVKETFKDTTI8003-91-50 16:50:00 Test Item Value Reference Range Interpretation Comments MCV (test code = MCV) 89.0 80.0-98.0 [facility] CenterTvidgphHAWNJXOERB7283-57-52 16:50:00 Test Item Value Reference Range Interpretation Comments MCHC (test code = MCHC) 33.2 32.0-36.0 [facility] CenterGoqcejqIGHEOFRLPB9809-70-33 16:50:00 Test Item Value Reference Range Interpretation Comments MCH (test code = MCH) 29.6 pg 27.0-31.0 [facility] CenterPjkwnqiLZVYFMTNPZ0633-04-58 16:50:00 Test Item Value Reference Range Interpretation Comments RBC (test code = RBC) 4.94 4.20-5.40 [facility] CenterYgniydjRHVKLEBXQL0483-39-47 16:50:00 Test Item Value Reference Range Interpretation Comments Hct (test code = Hct) 43.9 36.0-48.0 [facility] CenterIajqvknNAJCIQABUK3893-83-71 16:50:00 Test Item Value Reference Range Interpretation Comments Hgb (test code = Hgb) 14.6 12.0-16.0 [facility] CenterUmbjbcdMFNJXAKTCM9425-88-90 16:50:00 Test Item Value Reference Range Interpretation Comments Platelet (test code = Platelet) 276 133-450 [facility] CenterHtwwhwbWCHJQCGWUQ7630-05-06 16:50:00 Test Item Value Reference Range Interpretation Comments RDW (test code = RDW) 12.3 11.5-14.5 [facility] CenterAchdfebCZCHVRRVQJ8315-87-00 16:50:00 Test Item Value Reference Range Interpretation Comments MPV (test code = MPV) 8.9 7.4-10.4 [facility] [id number] 16:50:00 Test Item Value Reference Range Interpretation Comments eGFR (test code = eGFR) 121 [facility] [id number] 16:50:00 Test Item Value Reference Range Interpretation Comments Chloride Lvl (test code = Chloride Lvl) 105 95-109 [facility]2015-03-27 16:50:00 Test Item Value Reference Range Interpretation Comments Potassium Lvl (test code = Potassium 4.3 3.5-5.1 Lvl) [facility]2015-03-27 16:50:00 Test Item Value Reference Range Interpretation Comments Sodium Lvl (test code = Sodium Lvl) 143 135-145 [place] 480635-03-27 16:50:00 Test Item Value Reference Range Interpretation Comments Creatinine Lvl (test code = Creatinine 0.7 0.5-1.4 Lvl) [facility]2015-03-27 16:50:00 Test Item Value Reference Range Interpretation Comments CO2 (test code = CO2) 30 24-32 [place] 480635-03-27 16:50:00 Test Item Value Reference Range Interpretation Comments Calcium Lvl (test code = Calcium Lvl) 9.3 8.5-10.5 [place] 480635-03-27 16:50:00 Test Item Value Reference Range Interpretation Comments BUN (test code = BUN) 10 7-22 [facility]2015-03-27 16:50:00 Test Item Value Reference Range Interpretation Comments Glucose Lvl (test code = Glucose Lvl) 84 70-99 [facility]2015-03-27 16:50:00 Test Item Value Reference Range Interpretation Comments AGAP (test code = AGAP) 12.3 10.0-20.0 [facility] CenterJupnyldUJBLKNKEPR7868-11-74 16:50:00 Test Item Value Reference Range Interpretation Comments Monocytes (test code = Monocytes) 4.7 2.0-12.0 [place] 699795-03-27 16:50:00 Test Item Value Reference Range Interpretation Comments Eosinophils (test code = 1.6 See_Comment [A utomated message] The Eosinophils) system which ge nerated this result tra nsmitted reference range : <=4.0. The reference r joan was not used to int erpret this result as normal/abnormal . [facility] CenterOnhfzbgSCSIWRYCXH6415-55-04 16:50:00 Test Item Value Reference Range Interpretation Comments Basophils (test code = 0.6 See_Comment [Aut omated message] The Basophils) system which ge nerated this result tra nsmitted reference range : <=1.0. The reference r joan was not used to int erpret this result as normal/abnormal . [facility] CenterHyeiwosDVKLJRDEQH6561-99-17 16:50:00 Test Item Value Reference Range Interpretation Comments Lymphocytes (test code = Lymphocytes) 28.0 20.0-40.0 [facility] CenterWgkghnqRABJEMFGUX9335-99-60 16:50:00 Test Item Value Reference Range Interpretation Comments Lymphocytes # (test code = Lymphocytes 2.1 1.0-5.5 #) [facility] [id number] 16:50:00 Test Item Value Reference Range Interpretation Comments Monocytes # (test code 0.4 See_Comment [Aut omated message] The = Monocytes #) system which generated this result tra nsmitted reference range : <=0.8. The reference r joan was not used to int erpret this result as normal/abnormal . [facility] CenterFpvwmuoCATIXMOGYO0679-30-71 16:50:00 Test Item Value Reference Range Interpretation Comments Segs-Bands # (test code = Segs-Bands #) 5.0 1.5-8.1 [facility] CenterDdsfzkxHWMAYIOJWG2872-01-83 16:50:00 Test Item Value Reference Range Interpretation Comments Eosinophils # (test code 0.1 See_Comment [A utomated message] The = Eosinophils #) system whic h generated this result tra nsmitted reference range : <=0.5. The reference r joan was not used to int erpret this result as normal/abnormal . [facility] CenterZmrnxnaPMSONXDSFH8389-17-04 16:50:00 Test Item Value Reference Range Interpretation Comments Segs (test code = Segs) 65.1 45.0-75.0 [facility] CenterBxlzlsvCKIQOTYAVT7416-16-70 16:50:00 Test Item Value Reference Range Interpretation Comments WBC (test code = WBC) 7.6 3.7-10.4 [facility] CenterWjppzpuAXUCKLZDUR9327-59-75 16:50:00 Test Item Value Reference Range Interpretation Comments MCV (test code = MCV) 89.0 80.0-98.0 [facility] CenterVpucfymCHXAPBDFXE6088-16-32 16:50:00 Test Item Value Reference Range Interpretation Comments MCHC (test code = MCHC) 33.2 32.0-36.0 [place] 699795-03-27 16:50:00 Test Item Value Reference Range Interpretation Comments MCH (test code = MCH) 29.6 pg 27.0-31.0 [place] 699795-03-27 16:50:00 Test Item Value Reference Range Interpretation Comments RBC (test code = RBC) 4.94 4.20-5.40 [place] 699795-03-27 16:50:00 Test Item Value Reference Range Interpretation Comments Hct (test code = Hct) 43.9 36.0-48.0 [facility] CenterCjnkzswLEEAYNTATU5693-13-03 16:50:00 Test Item Value Reference Range Interpretation Comments Hgb (test code = Hgb) 14.6 12.0-16.0 [place] [address]-03-27 16:50:00 Test Item Value Reference Range Interpretation Comments Platelet (test code = Platelet) 276 133-450 [facility] CenterHhxnkeqGDAYEPGAFG9126-68-28 16:50:00 Test Item Value Reference Range Interpretation Comments RDW (test code = RDW) 12.3 11.5-14.5 [facility] CenterPssqkfeACMMTMHKGS5974-53-05 16:50:00 Test Item Value Reference Range Interpretation Comments MPV (test code = MPV) 8.9 7.4-10.4 [facility]2015-03-27 16:50:00 Test Item Value Reference Range Interpretation Comments eGFR (test code = eGFR) 121 [facility]2015-03-27 16:50:00 Test Item Value Reference Range Interpretation Comments Chloride Lvl (test code = Chloride Lvl) 105 95-109 [facility]2015-03-27 16:50:00 Test Item Value Reference Range Interpretation Comments Potassium Lvl (test code = Potassium 4.3 3.5-5.1 Lvl) [facility]2015-03-27 16:50:00 Test Item Value Reference Range Interpretation Comments Sodium Lvl (test code = Sodium Lvl) 143 135-145 [facility]2015-03-27 16:50:00 Test Item Value Reference Range Interpretation Comments Creatinine Lvl (test code = Creatinine 0.7 0.5-1.4 Lvl) [facility]2015-03-27 16:50:00 Test Item Value Reference Range Interpretation Comments CO2 (test code = CO2) 30 24-32 [facility]2015-03-27 16:50:00 Test Item Value Reference Range Interpretation Comments Calcium Lvl (test code = Calcium Lvl) 9.3 8.5-10.5 [facility]2015-03-27 16:50:00 Test Item Value Reference Range Interpretation Comments BUN (test code = BUN) 10 7-22 [facility]2015-03-27 16:50:00 Test Item Value Reference Range Interpretation Comments Glucose Lvl (test code = Glucose Lvl) 84 70-99 [facility]2015-03-27 16:50:00 Test Item Value Reference Range Interpretation Comments AGAP (test code = AGAP) 12.3 10.0-20.0 [facility] CenterUutfctpWAMOIWDGWS2977-14-44 16:50:00 Test Item Value Reference Range Interpretation Comments Monocytes (test code = Monocytes) 4.7 2.0-12.0 [facility] CenterFjtowvjPJSLBWRKYU4309-82-09 16:50:00 Test Item Value Reference Range Interpretation Comments Eosinophils (test code = 1.6 See_Comment [A utomated message] The Eosinophils) system which ge nerated this result tra nsmitted reference range : <=4.0. The reference r joan was not used to int erpret this result as normal/abnormal . [facility] CenterPamyetrJAPKLHUBEF7778-10-95 16:50:00 Test Item Value Reference Range Interpretation Comments Basophils (test code = 0.6 See_Comment [Aut omated message] The Basophils) system which ge nerated this result tra nsmitted reference range : <=1.0. The reference r joan was not used to int erpret this result as normal/abnormal . [facility] CenterFhqprolKHWAXUHRKJ1159-78-55 16:50:00 Test Item Value Reference Range Interpretation Comments Lymphocytes (test code = Lymphocytes) 28.0 20.0-40.0 [facility] CenterToiuttaFDJAFUSWXB9760-06-34 16:50:00 Test Item Value Reference Range Interpretation Comments Lymphocytes # (test code = Lymphocytes 2.1 1.0-5.5 #) [facility] CenterYqsxsfnNVTSSYARPB7008-60-47 16:50:00 Test Item Value Reference Range Interpretation Comments Monocytes # (test code 0.4 See_Comment [Aut omated message] The = Monocytes #) system which generated this result tra nsmitted reference range : <=0.8. The reference r joan was not used to int erpret this result as normal/abnormal . [facility] CenterXdmdcbmQCDBTIUKGR0277-86-46 16:50:00 Test Item Value Reference Range Interpretation Comments Segs-Bands # (test code = Segs-Bands #) 5.0 1.5-8.1 [facility] CenterQzqogrfVHUMXABJNJ0224-73-32 16:50:00 Test Item Value Reference Range Interpretation Comments Eosinophils # (test code 0.1 See_Comment [A utomated message] The = Eosinophils #) system whic h generated this result tra nsmitted reference range : <=0.5. The reference r joan was not used to int erpret this result as normal/abnormal . [facility] CenterFubqveuPTCEWCIOGD4721-94-70 16:50:00 Test Item Value Reference Range Interpretation Comments Segs (test code = Segs) 65.1 45.0-75.0 [facility] CenterGswaxfnFRKQZECYDT8051-73-33 16:50:00 Test Item Value Reference Range Interpretation Comments WBC (test code = WBC) 7.6 3.7-10.4 [facility] CenterXehroqiCMATBLPNPQ8334-55-85 16:50:00 Test Item Value Reference Range Interpretation Comments MCV (test code = MCV) 89.0 80.0-98.0 [facility] CenterStarolrFURZPMEMKZ0661-29-91 16:50:00 Test Item Value Reference Range Interpretation Comments MCHC (test code = MCHC) 33.2 32.0-36.0 [facility] CenterJlpugnzTZDQQYARDI4299-05-83 16:50:00 Test Item Value Reference Range Interpretation Comments MCH (test code = MCH) 29.6 pg 27.0-31.0 [facility] CenterLxjymljDCYVODAUNH2149-57-60 16:50:00 Test Item Value Reference Range Interpretation Comments RBC (test code = RBC) 4.94 4.20-5.40 [facility] CenterTstjumxDEUOYWLKCL5470-62-54 16:50:00 Test Item Value Reference Range Interpretation Comments Hct (test code = Hct) 43.9 36.0-48.0 [facility] CenterYttgiboWXSWIWJVZD6632-49-93 16:50:00 Test Item Value Reference Range Interpretation Comments Hgb (test code = Hgb) 14.6 12.0-16.0 [facility] CenterWesyohbRATXJOJJQM6257-21-10 16:50:00 Test Item Value Reference Range Interpretation Comments Platelet (test code = Platelet) 276 133-450 [facility] CenterTsnpfjcLPDMFDKWSD9111-55-53 16:50:00 Test Item Value Reference Range Interpretation Comments RDW (test code = RDW) 12.3 11.5-14.5 [facility] CenterPrqnxiuMGQBSZYPIK3731-17-13 16:50:00 Test Item Value Reference Range Interpretation Comments MPV (test code = MPV) 8.9 7.4-10.4 [facility]2014-12-15 15:59:00 Test Item Value Reference Range Interpretation Comments Protein CSF (test code = Protein CSF) 40 15-45 [facility]2014-12-15 15:59:00 Test Item Value Reference Range Interpretation Comments Monocyte CSF (test code = Monocyte CSF) 7 15-45 [facility]2014-12-15 15:59:00 Test Item Value Reference Range Interpretation Comments Lymph CSF (test code = Lymph CSF) 55 40-80 [facility]2014-12-15 15:59:00 Test Item Value Reference Range Interpretation Comments Segs CSF (test code = 38 See_Comment [Auto mated message] The Segs CSF) system which ge nerated this result transmit richard reference range : <=6. The reference range was not used to interpr et this result as robbie l/abnormal. [facility]2014-12-15 15:59:00 Test Item Value Reference Range Interpretation Comments WBC CSF (test code = 20 See_Comment [Autom ated message] The WBC CSF) system which ge nerated this result transmit richard reference range : <=53. The reference range was not used to interpr et this result as robbie l/abnormal. [facility]2014-12-15 15:59:00 Test Item Value Reference Range Interpretation Comments RBC CSF (test code = 32320 See_Comment [Autom ated message] The RBC CSF) system which ge nerated this result transmit richard reference range : <=03. The reference range was not used to interpr et this result as robbie l/abnormal. [facility]2014-12-15 15:59:00 Test Item Value Reference Range Interpretation Comments Color CSF (test code = Light Red Color CSF) *ABN*(07/15/14 9:59 AM) [facility]2014-12-15 15:59:00 Test Item Value Reference Range Interpretation Comments Tube Num CSF (test xxxxxxx (07/15/14 9:59 code = Tube Num CSF) AM) [facility]2014-12-15 15:59:00 Test Item Value Reference Range Interpretation Comments Clarity CSF (test code Slight *ABN*(07/15/14 = Clarity CSF) 9:59 AM) [facility]2014-12-15 15:59:00 Test Item Value Reference Range Interpretation Comments Supernat CSF (test Colorless (07/15/14 code = Supernat CSF) 9:59 AM) [facility]2014-12-15 15:59:00 Test Item Value Reference Range Interpretation Comments Glucose CSF (test code = Glucose CSF) 59 45-80 [facility]2014-12-15 15:59:00 Test Item Value Reference Range Interpretation Comments Color CSF (test code = Light Red Color CSF) *ABN*(07/15/14 9:59 AM) [facility]2014-12-15 15:59:00 Test Item Value Reference Range Interpretation Comments Tube Num CSF (test xxxxxxx (07/15/14 9:59 code = Tube Num CSF) AM) [facility]2014-12-15 15:59:00 Test Item Value Reference Range Interpretation Comments Clarity CSF (test code Slight *ABN*(07/15/14 = Clarity CSF) 9:59 AM) [facility]2014-12-15 15:59:00 Test Item Value Reference Range Interpretation Comments Supernat CSF (test Colorless (07/15/14 code = Supernat CSF) 9:59 AM) [facility]2014-12-15 15:59:00 Test Item Value Reference Range Interpretation Comments Glucose CSF (test code = Glucose CSF) 59 45-80 [facility]2014-12-15 15:59:00 Test Item Value Reference Range Interpretation Comments Protein CSF (test code = Protein CSF) 40 15-45 [facility]2014-12-15 15:59:00 Test Item Value Reference Range Interpretation Comments Monocyte CSF (test code = Monocyte CSF) 7 15-45 [facility]2014-12-15 15:59:00 Test Item Value Reference Range Interpretation Comments Lymph CSF (test code = Lymph CSF) 55 40-80 [facility]IguanaFixMVMZEW8495-10-14 15:59:00 Test Item Value Reference Range Interpretation Comments Segs CSF (test code = 38 See_Comment [Auto mated message] The Segs CSF) system which ge nerated this result transmit richard reference range : <=6. The reference range was not used to interpr et this result as robbie l/abnormal. [facility] HospitalIguanaFixAKDPRU7353-71-87 15:59:00 Test Item Value Reference Range Interpretation Comments WBC CSF (test code = 20 See_Comment [Autom ated message] The WBC CSF) system which ge nerated this result transmit richard reference range : <=53. The reference range was not used to interpr et this result as robbie l/abnormal. [facility] HospitalIguanaFixGTRRFQ0940-74-49 15:59:00 Test Item Value Reference Range Interpretation Comments RBC CSF (test code = 56826 See_Comment [Autom ated message] The RBC CSF) system which ge nerated this result transmit richard reference range : <=03. The reference range was not used to interpr et this result as robbie l/abnormal. [facility] [id number] 15:59:00 Test Item Value Reference Range Interpretation Comments Color CSF (test code = Light Red Color CSF) *ABN*(07/15/14 9:59 AM) [facility] YJUFXQ7694-11-41 15:59:00 Test Item Value Reference Range Interpretation Comments Tube Num CSF (test xxxxxxx (07/15/14 9:59 code = Tube Num CSF) AM) [facility] [id number] 15:59:00 Test Item Value Reference Range Interpretation Comments Clarity CSF (test code Slight *ABN*(07/15/14 = Clarity CSF) 9:59 AM) [facility] MQUOES5415-24-15 15:59:00 Test Item Value Reference Range Interpretation Comments Supernat CSF (test Colorless (07/15/14 code = Supernat CSF) 9:59 AM) [facility] CQHZSW6927-44-95 15:59:00 Test Item Value Reference Range Interpretation Comments Glucose CSF (test code = Glucose CSF) 59 45-80 [facility]IguanaFixAEXIXK7082-28-55 15:59:00 Test Item Value Reference Range Interpretation Comments Protein CSF (test code = Protein CSF) 40 15-45 [facility] YLLAJH2075-40-01 15:59:00 Test Item Value Reference Range Interpretation Comments Monocyte CSF (test code = Monocyte CSF) 7 15-45 [facility] TCWHQV4992-06-14 15:59:00 Test Item Value Reference Range Interpretation Comments Lymph CSF (test code = Lymph CSF) 55 40-80 [facility] GLGWUS8340-35-24 15:59:00 Test Item Value Reference Range Interpretation Comments Segs CSF (test code = 38 See_Comment [Auto mated message] The Segs CSF) system which ge nerated this result transmit richrad reference range : <=6. The reference range was not used to interpr et this result as robbie l/abnormal. [employer]2014-12-15 15:59:00 Test Item Value Reference Range Interpretation Comments WBC CSF (test code = 20 See_Comment [Autom ated message] The WBC CSF) system which ge nerated this result transmit richard reference range : <=53. The reference range was not used to interpr et this result as robbie l/abnormal. [facility]2014-12-15 15:59:00 Test Item Value Reference Range Interpretation Comments RBC CSF (test code = 95835 See_Comment [Autom ated message] The RBC CSF) system which ge nerated this result transmit richard reference range : <=03. The reference range was not used to interpr et this result as robbie l/abnormal. MICMALI [id number] 12:29:00 Test Item Value Reference Range Interpretation Comments Antibody Scrn (test Negative (07/15/14 code = Antibody Scrn) 6:29 AM) [employer] UNAZARP2539-03-32 12:29:00 Test Item Value Reference Range Interpretation Comments ABO/Rh (test code = ABO/Rh) A [facility] [id number] 12:29:00 Test Item Value Reference Range Interpretation Comments Antibody Scrn (test Negative (07/15/14 code = Antibody Scrn) 6:29 AM) [employer] [facility] [id number] 12:29:00 Test Item Value Reference Range Interpretation Comments ABO/Rh (test code = ABO/Rh) A [facility] [id number] 12:29:00 Test Item Value Reference Range Interpretation Comments Antibody Scrn (test Negative (07/15/14 code = Antibody Scrn) 6:29 AM) [facility] [id number] 12:29:00 Test Item Value Reference Range Interpretation Comments ABO/Rh (test code = ABO/Rh) A POS [facility]2014-12-15 12:03:00 Test Item Value Reference Range Interpretation Comments U Preg (test code = U Negative (07/15/14 6:03 Preg) AM) [facility]2014-12-15 12:03:00 Test Item Value Reference Range Interpretation Comments U Preg (test code = U Negative (07/15/14 6:03 Preg) AM) [facility]2014-12-15 12:03:00 Test Item Value Reference Range Interpretation Comments U Preg (test code = U Negative (07/15/14 6:03 Preg) AM) [facility] [id number] 20:00:00 Test Item Value Reference Range Interpretation Comments eGFR (test code = eGFR) 121 [facility] [employer] [id number] 20:00:00 Test Item Value Reference Range Interpretation Comments Calcium Lvl (test code = Calcium Lvl) 10.0 8.5-10.5 [facility] [employer] [id number] 20:00:00 Test Item Value Reference Range Interpretation Comments AST (test code = AST) 8 See_Comment [Auto mated message] The system which ge nerated this result transmit richard reference range : <=37. The reference range was not used to interpr et this result as robbie l/abnormal. [facility] [employer] [id number] 20:00:00 Test Item Value Reference Range Interpretation Comments ALT (test code = ALT) 13 See_Comment [Auto mated message] The system which ge nerated this result transmit richard reference range : <=65. The reference range was not used to interpr et this result as robbie l/abnormal. [facility] [employer] [id number] 20:00:00 Test Item Value Reference Range Interpretation Comments Albumin Lvl (test code = Albumin Lvl) 4.7 3.5-5.0 [facility] [employer] [id number] 20:00:00 Test Item Value Reference Range Interpretation Comments Total Protein (test code = Total 7.9 6.4-8.4 Protein) [facility]2014-12-11 20:00:00 Test Item Value Reference Range Interpretation Comments Bili Total (test code = Bili Total) 0.7 0.2-1.3 [facility]2014-12-11 20:00:00 Test Item Value Reference Range Interpretation Comments Alk Phos (test code = Alk Phos) 59 39-136 [facility]2014-12-11 20:00:00 Test Item Value Reference Range Interpretation Comments CO2 (test code = CO2) 30 24-32 [facility]2014-12-11 20:00:00 Test Item Value Reference Range Interpretation Comments Sodium Lvl (test code = Sodium Lvl) 142 135-145 [facility]2014-12-11 20:00:00 Test Item Value Reference Range Interpretation Comments Potassium Lvl (test code = Potassium 4.3 3.5-5.1 Lvl) [facility]2014-12-11 20:00:00 Test Item Value Reference Range Interpretation Comments Chloride Lvl (test code = Chloride Lvl) 103 95-109 [facility]2014-12-11 20:00:00 Test Item Value Reference Range Interpretation Comments Glucose Lvl (test code = Glucose Lvl) 78 70-99 [facility]2014-12-11 20:00:00 Test Item Value Reference Range Interpretation Comments BUN (test code = BUN) 10 7-22 [facility]2014-12-11 20:00:00 Test Item Value Reference Range Interpretation Comments Creatinine Lvl (test code = Creatinine 0.7 0.5-1.4 Lvl) [facility]2014-12-11 20:00:00 Test Item Value Reference Range Interpretation Comments Globulin (test code = Globulin) 3.2 2.0-4.0 [facility]2014-12-11 20:00:00 Test Item Value Reference Range Interpretation Comments B/C Ratio (test code = B/C Ratio) 14 6-25 [facility]2014-12-11 20:00:00 Test Item Value Reference Range Interpretation Comments AGAP (test code = AGAP) 13.3 10.0-20.0 [facility]2014-12-11 20:00:00 Test Item Value Reference Range Interpretation Comments A/G Ratio (test code = A/G Ratio) 1.5 0.7-1.6 [id number] 20:00:00 Test Item Value Reference Range Interpretation Comments INR (test code = INR) 0.96 0.85-1.17 [facility] CenterNguihygFRSSLHMUWM3691-97-03 20:00:00 Test Item Value Reference Range Interpretation Comments PT (test code = PT) 12.8 s 12.0-14.7 [facility] CenterJmijjjqFEIKYDJAZI6174-93-81 20:00:00 Test Item Value Reference Range Interpretation Comments PTT (test code = PTT) 30.3 s 22.9-35.8 [facility] CenterKdrtsnmEZCDTPWRZI0983-21-20 20:00:00 Test Item Value Reference Range Interpretation Comments Hgb (test code = Hgb) 14.7 12.0-16.0 [facility] CenterUqygjueOTHUSIVGII9874-01-59 20:00:00 Test Item Value Reference Range Interpretation Comments WBC (test code = WBC) 7.6 3.7-10.4 [facility] CenterFgwtesvJGTKNWHKJJ7002-15-45 20:00:00 Test Item Value Reference Range Interpretation Comments RBC (test code = RBC) 4.96 4.20-5.40 [facility] CenterJwfucopZPHQGAGIAF4502-96-47 20:00:00 Test Item Value Reference Range Interpretation Comments MCV (test code = MCV) 90.2 80.0-98.0 [facility] CenterOphhakrIEZIEYLCCD9759-39-45 20:00:00 Test Item Value Reference Range Interpretation Comments MCH (test code = MCH) 29.6 pg 27.0-31.0 [facility] CenterMkejgbsRJCGXIYVTU2507-66-41 20:00:00 Test Item Value Reference Range Interpretation Comments MCHC (test code = MCHC) 32.8 32.0-36.0 [facility] CenterNnctqmpERLLJJIMGJ5681-31-42 20:00:00 Test Item Value Reference Range Interpretation Comments RDW (test code = RDW) 12.7 11.5-14.5 [facility] CenterNdeffwiNGDUPIYLDO2451-50-91 20:00:00 Test Item Value Reference Range Interpretation Comments Hct (test code = Hct) 44.7 36.0-48.0 [facility] CenterEzkxcthMOBOVTXNVG9474-52-81 20:00:00 Test Item Value Reference Range Interpretation Comments Platelet (test code = Platelet) 308 133-450 [facility] CenterXezthzaHQGDQYSOPS6065-75-22 20:00:00 Test Item Value Reference Range Interpretation Comments MPV (test code = MPV) 8.7 7.4-10.4 [facility] CenterOhkyagcFZDMHQLOZH1349-57-03 20:00:00 Test Item Value Reference Range Interpretation Comments Segs (test code = Segs) 67.8 45.0-75.0 [facility] CenterXbxdcveQMOBIGDSNK1750-52-22 20:00:00 Test Item Value Reference Range Interpretation Comments Monocytes (test code = Monocytes) 5.1 2.0-12.0 [facility] CenterRulhdjdACSJQEUNMZ6071-55-01 20:00:00 Test Item Value Reference Range Interpretation Comments Eosinophils (test code = 1.7 See_Comment [A utomated message] The Eosinophils) system which ge nerated this result tra nsmitted reference range : <=4.0. The reference r joan was not used to int erpret this result as normal/abnormal . [facility] CenterSgbvykjYJQIWWXVUL0321-39-39 20:00:00 Test Item Value Reference Range Interpretation Comments Basophils (test code = 0.5 See_Comment [Aut omated message] The Basophils) system which ge nerated this result tra nsmitted reference range : <=1.0. The reference r joan was not used to int erpret this result as normal/abnormal . [facility] CenterQxdmnioAJLDJVRAOT1643-16-52 20:00:00 Test Item Value Reference Range Interpretation Comments Segs-Bands # (test code = Segs-Bands #) 5.2 1.5-8.1 [facility] CenterJlbmuogPWUPKSFRZA7502-71-09 20:00:00 Test Item Value Reference Range Interpretation Comments Lymphocytes (test code = Lymphocytes) 24.9 20.0-40.0 [facility] CenterFxnocvlOFUCCKJOSB7398-62-92 20:00:00 Test Item Value Reference Range Interpretation Comments Eosinophils # (test code 0.1 See_Comment [A utomated message] The = Eosinophils #) system ic h generated this result tra nsmitted reference range : <=0.5. The reference r joan was not used to int erpret this result as normal/abnormal . [facility] CenterEbfuzycOPRXNWAVSG4114-85-27 20:00:00 Test Item Value Reference Range Interpretation Comments Lymphocytes # (test code = Lymphocytes 1.9 1.0-5.5 #) [facility] CenterSoueervMFAMEPMMWB2465-31-74 20:00:00 Test Item Value Reference Range Interpretation Comments Monocytes # (test code 0.4 See_Comment [Aut omated message] The = Monocytes #) system which generated this result tra nsmitted reference range : <=0.8. The reference r joan was not used to int erpret this result as normal/abnormal . [facility]2014-12-11 20:00:00 Test Item Value Reference Range Interpretation Comments eGFR (test code = eGFR) 121 [facility]2014-12-11 20:00:00 Test Item Value Reference Range Interpretation Comments Calcium Lvl (test code = Calcium Lvl) 10.0 8.5-10.5 [facility]2014-12-11 20:00:00 Test Item Value Reference Range Interpretation Comments AST (test code = AST) 8 See_Comment [Auto mated message] The system which ge nerated this result transmit richard reference range : <=37. The reference range was not used to interpr et this result as robbie l/abnormal. [facility]2014-12-11 20:00:00 Test Item Value Reference Range Interpretation Comments ALT (test code = ALT) 13 See_Comment [Auto mated message] The system which ge nerated this result transmit richard reference range : <=65. The reference range was not used to interpr et this result as robbie l/abnormal. [facility]2014-12-11 20:00:00 Test Item Value Reference Range Interpretation Comments Albumin Lvl (test code = Albumin Lvl) 4.7 3.5-5.0 [facility]2014-12-11 20:00:00 Test Item Value Reference Range Interpretation Comments Total Protein (test code = Total 7.9 6.4-8.4 Protein) [facility]2014-12-11 20:00:00 Test Item Value Reference Range Interpretation Comments Bili Total (test code = Bili Total) 0.7 0.2-1.3 [facility]2014-12-11 20:00:00 Test Item Value Reference Range Interpretation Comments Alk Phos (test code = Alk Phos) 59 39-136 [facility]2014-12-11 20:00:00 Test Item Value Reference Range Interpretation Comments CO2 (test code = CO2) 30 24-32 [facility]2014-12-11 20:00:00 Test Item Value Reference Range Interpretation Comments Sodium Lvl (test code = Sodium Lvl) 142 135-145 [facility]2014-12-11 20:00:00 Test Item Value Reference Range Interpretation Comments Potassium Lvl (test code = Potassium 4.3 3.5-5.1 Lvl) [facility]2014-12-11 20:00:00 Test Item Value Reference Range Interpretation Comments Chloride Lvl (test code = Chloride Lvl) 103 95-109 [facility]2014-12-11 20:00:00 Test Item Value Reference Range Interpretation Comments Glucose Lvl (test code = Glucose Lvl) 78 70-99 [facility]2014-12-11 20:00:00 Test Item Value Reference Range Interpretation Comments BUN (test code = BUN) 10 7-22 [facility]2014-12-11 20:00:00 Test Item Value Reference Range Interpretation Comments Creatinine Lvl (test code = Creatinine 0.7 0.5-1.4 Lvl) [facility]2014-12-11 20:00:00 Test Item Value Reference Range Interpretation Comments Globulin (test code = Globulin) 3.2 2.0-4.0 [facility]2014-12-11 20:00:00 Test Item Value Reference Range Interpretation Comments B/C Ratio (test code = B/C Ratio) 14 6-25 [facility]2014-12-11 20:00:00 Test Item Value Reference Range Interpretation Comments AGAP (test code = AGAP) 13.3 10.0-20.0 [facility]2014-12-11 20:00:00 Test Item Value Reference Range Interpretation Comments A/G Ratio (test code = A/G Ratio) 1.5 0.7-1.6 [facility] CenterHxgidwoXYLFSOOFTF3223-39-82 20:00:00 Test Item Value Reference Range Interpretation Comments INR (test code = INR) 0.96 0.85-1.17 [facility] CenterQkwkccyQCMNNWCVXC2663-66-32 20:00:00 Test Item Value Reference Range Interpretation Comments PT (test code = PT) 12.8 s 12.0-14.7 [facility] CenterMhuhdldMLIBJUBAHQ7071-63-09 20:00:00 Test Item Value Reference Range Interpretation Comments PTT (test code = PTT) 30.3 s 22.9-35.8 [facility] CenterWohrfhnKUOVZZUCWR5570-15-65 20:00:00 Test Item Value Reference Range Interpretation Comments Hgb (test code = Hgb) 14.7 12.0-16.0 [facility] CenterHlplrtlQKYUKUAVLV1886-24-03 20:00:00 Test Item Value Reference Range Interpretation Comments WBC (test code = WBC) 7.6 3.7-10.4 [facility] CenterKwwvoauIYYXMAZPKY5247-34-43 20:00:00 Test Item Value Reference Range Interpretation Comments RBC (test code = RBC) 4.96 4.20-5.40 [facility] CenterQbtmcyrRVLCYAZIUG7157-96-36 20:00:00 Test Item Value Reference Range Interpretation Comments MCV (test code = MCV) 90.2 80.0-98.0 [facility] CenterRzozwbaUGTKFOWBMI6789-35-91 20:00:00 Test Item Value Reference Range Interpretation Comments MCH (test code = MCH) 29.6 pg 27.0-31.0 [facility] CenterXamfgggECCTEZKYBU0626-17-89 20:00:00 Test Item Value Reference Range Interpretation Comments MCHC (test code = MCHC) 32.8 32.0-36.0 [facility] CenterSsaryrxHELRYKHOSA0301-49-38 20:00:00 Test Item Value Reference Range Interpretation Comments RDW (test code = RDW) 12.7 11.5-14.5 [facility] CenterJtqsngqQOMTZYJZMV4217-91-49 20:00:00 Test Item Value Reference Range Interpretation Comments Hct (test code = Hct) 44.7 36.0-48.0 [facility] CenterRqnhunzBEPJDYGUHS9649-40-96 20:00:00 Test Item Value Reference Range Interpretation Comments Platelet (test code = Platelet) 308 133-450 [facility] CenterVvikdmoSZCHHJIUFW2735-89-31 20:00:00 Test Item Value Reference Range Interpretation Comments MPV (test code = MPV) 8.7 7.4-10.4 [facility] CenterWlzpwenPBALOMKMNI7599-83-34 20:00:00 Test Item Value Reference Range Interpretation Comments Segs (test code = Segs) 67.8 45.0-75.0 [facility] CenterKmyxfdyXDUACPCMZF3851-91-04 20:00:00 Test Item Value Reference Range Interpretation Comments Monocytes (test code = Monocytes) 5.1 2.0-12.0 [facility] CenterLmpayfaDCDWQBPQFO4956-22-63 20:00:00 Test Item Value Reference Range Interpretation Comments Eosinophils (test code = 1.7 See_Comment [A utomated message] The Eosinophils) system which ge nerated this result tra nsmitted reference range : <=4.0. The reference r joan was not used to int erpret this result as normal/abnormal . [facility] CenterWhhtmmgBGLKJXSVPT7515-21-02 20:00:00 Test Item Value Reference Range Interpretation Comments Basophils (test code = 0.5 See_Comment [Aut omated message] The Basophils) system which ge nerated this result tra nsmitted reference range : <=1.0. The reference r joan was not used to int erpret this result as normal/abnormal . [facility] CenterTxupatyFMYPVKVWKO1140-28-04 20:00:00 Test Item Value Reference Range Interpretation Comments Segs-Bands # (test code = Segs-Bands #) 5.2 1.5-8.1 [facility] CenterSiucxiqHFKPISZTUZ4385-55-37 20:00:00 Test Item Value Reference Range Interpretation Comments Lymphocytes (test code = Lymphocytes) 24.9 20.0-40.0 [facility] CenterCvijnvlESEMWCRSBO3882-78-68 20:00:00 Test Item Value Reference Range Interpretation Comments Eosinophils # (test code 0.1 See_Comment [A utomated message] The = Eosinophils #) system [facility] generated this result tra nsmitted reference range : <=0.5. The reference r joan was not used to int erpret this result as normal/abnormal . [facility] CenterRpjwqruUJEBFMJUES7314-92-95 20:00:00 Test Item Value Reference Range Interpretation Comments Lymphocytes # (test code = Lymphocytes 1.9 1.0-5.5 #) [facility] CenterBnezhrkOAIYOTIDQY7840-84-02 20:00:00 Test Item Value Reference Range Interpretation Comments Monocytes # (test code 0.4 See_Comment [Aut omated message] The = Monocytes #) system which generated this result tra nsmitted reference range : <=0.8. The reference r joan was not used to int erpret this result as normal/abnormal . [facility]2014-12-11 20:00:00 Test Item Value Reference Range Interpretation Comments eGFR (test code = eGFR) 121 [facility]2014-12-11 20:00:00 Test Item Value Reference Range Interpretation Comments Calcium Lvl (test code = Calcium Lvl) 10.0 8.5-10.5 [place] 480634-12-11 20:00:00 Test Item Value Reference Range Interpretation Comments AST (test code = AST) 8 See_Comment [Auto mated message] The system which ge nerated this result transmit richard reference range : <=37. The reference range was not used to interpr et this result as robbie l/abnormal. [facility]2014-12-11 20:00:00 Test Item Value Reference Range Interpretation Comments ALT (test code = ALT) 13 See_Comment [Auto mated message] The system which ge nerated this result transmit richard reference range : <=65. The reference range was not used to interpr et this result as robbie l/abnormal. [facility]2014-12-11 20:00:00 Test Item Value Reference Range Interpretation Comments Albumin Lvl (test code = Albumin Lvl) 4.7 3.5-5.0 [facility]2014-12-11 20:00:00 Test Item Value Reference Range Interpretation Comments Total Protein (test code = Total 7.9 6.4-8.4 Protein) [place] 480634-12-11 20:00:00 Test Item Value Reference Range Interpretation Comments Bili Total (test code = Bili Total) 0.7 0.2-1.3 [place] 480634-12-11 20:00:00 Test Item Value Reference Range Interpretation Comments Alk Phos (test code = Alk Phos) 59 39-136 [facility]2014-12-11 20:00:00 Test Item Value Reference Range Interpretation Comments CO2 (test code = CO2) 30 24-32 [facility]2014-12-11 20:00:00 Test Item Value Reference Range Interpretation Comments Sodium Lvl (test code = Sodium Lvl) 142 135-145 [facility]2014-12-11 20:00:00 Test Item Value Reference Range Interpretation Comments Potassium Lvl (test code = Potassium 4.3 3.5-5.1 Lvl) [facility]2014-12-11 20:00:00 Test Item Value Reference Range Interpretation Comments Chloride Lvl (test code = Chloride Lvl) 103 95-109 [facility]2014-12-11 20:00:00 Test Item Value Reference Range Interpretation Comments Glucose Lvl (test code = Glucose Lvl) 78 70-99 [facility]2014-12-11 20:00:00 Test Item Value Reference Range Interpretation Comments BUN (test code = BUN) 10 7-22 [facility]2014-12-11 20:00:00 Test Item Value Reference Range Interpretation Comments Creatinine Lvl (test code = Creatinine 0.7 0.5-1.4 Lvl) [facility]2014-12-11 20:00:00 Test Item Value Reference Range Interpretation Comments Globulin (test code = Globulin) 3.2 2.0-4.0 [facility]2014-12-11 20:00:00 Test Item Value Reference Range Interpretation Comments B/C Ratio (test code = B/C Ratio) 14 6-25 [place] 480634-12-11 20:00:00 Test Item Value Reference Range Interpretation Comments AGAP (test code = AGAP) 13.3 10.0-20.0 [facility]2014-12-11 20:00:00 Test Item Value Reference Range Interpretation Comments A/G Ratio (test code = A/G Ratio) 1.5 0.7-1.6 [facility] CenterNbqaeynKKYWXYZKAF9430-29-32 20:00:00 Test Item Value Reference Range Interpretation Comments INR (test code = INR) 0.96 0.85-1.17 [place] 699794-12-11 20:00:00 Test Item Value Reference Range Interpretation Comments PT (test code = PT) 12.8 s 12.0-14.7 [facility] CenterFfejxmtSXXFFWMOAA6767-13-96 20:00:00 Test Item Value Reference Range Interpretation Comments PTT (test code = PTT) 30.3 s 22.9-35.8 [facility] CenterHtmvsdnUTSLIVQOBJ7617-26-97 20:00:00 Test Item Value Reference Range Interpretation Comments Hgb (test code = Hgb) 14.7 12.0-16.0 [place] 699794-12-11 20:00:00 Test Item Value Reference Range Interpretation Comments WBC (test code = WBC) 7.6 3.7-10.4 [facility] CenterBeptuxpVYNVBJAKXR9328-63-04 20:00:00 Test Item Value Reference Range Interpretation Comments RBC (test code = RBC) 4.96 4.20-5.40 [facility] CenterEgowlmbGNFQJLJZJG5807-46-71 20:00:00 Test Item Value Reference Range Interpretation Comments MCV (test code = MCV) 90.2 80.0-98.0 [facility] CenterNjrxcipKNJAMKODXA3893-23-29 20:00:00 Test Item Value Reference Range Interpretation Comments MCH (test code = MCH) 29.6 pg 27.0-31.0 [facility] CenterSyrgjszQCQWQPVUJD9986-72-44 20:00:00 Test Item Value Reference Range Interpretation Comments MCHC (test code = MCHC) 32.8 32.0-36.0 [facility] CenterSolngdeZXONKRHXUZ9165-33-22 20:00:00 Test Item Value Reference Range Interpretation Comments RDW (test code = RDW) 12.7 11.5-14.5 [facility] CenterFfyxoqwQOWVFMCJET1686-21-28 20:00:00 Test Item Value Reference Range Interpretation Comments Hct (test code = Hct) 44.7 36.0-48.0 [facility] CenterCqbgejiPSBZPDSZJA2553-84-74 20:00:00 Test Item Value Reference Range Interpretation Comments Platelet (test code = Platelet) 308 133-450 [facility] CenterJqmkvaeFSRYVOYRHV5464-76-29 20:00:00 Test Item Value Reference Range Interpretation Comments MPV (test code = MPV) 8.7 7.4-10.4 [facility] CenterZmlrhwgPHPKDEVXOM5996-09-80 20:00:00 Test Item Value Reference Range Interpretation Comments Segs (test code = Segs) 67.8 45.0-75.0 [facility] CenterVcdktquGSXATBCZNW2638-66-97 20:00:00 Test Item Value Reference Range Interpretation Comments Monocytes (test code = Monocytes) 5.1 2.0-12.0 [facility] CenterChmsgrmWAGICGOKHH5245-78-30 20:00:00 Test Item Value Reference Range Interpretation Comments Eosinophils (test code = 1.7 See_Comment [A utomated message] The Eosinophils) system which ge nerated this result tra nsmitted reference range : <=4.0. The reference r joan was not used to int erpret this result as normal/abnormal . [facility] CenterZfbeuxaXMKYLORVVY2295-38-15 20:00:00 Test Item Value Reference Range Interpretation Comments Basophils (test code = 0.5 See_Comment [Aut omated message] The Basophils) system which ge nerated this result tra nsmitted reference range : <=1.0. The reference r joan was not used to int erpret this result as normal/abnormal . [facility] CenterTrushupALBTEQZGPD4649-01-91 20:00:00 Test Item Value Reference Range Interpretation Comments Segs-Bands # (test code = Segs-Bands #) 5.2 1.5-8.1 [facility] CenterMgixkoxJDEWYCGDXU4884-35-65 20:00:00 Test Item Value Reference Range Interpretation Comments Lymphocytes (test code = Lymphocytes) 24.9 20.0-40.0 [facility] CenterMfpfvpcDBDLLCOILL8365-57-15 20:00:00 Test Item Value Reference Range Interpretation Comments Eosinophils # (test code 0.1 See_Comment [A utomated message] The = Eosinophils #) system ic h generated this result tra nsmitted reference range : <=0.5. The reference r joan was not used to int erpret this result as normal/abnormal . [facility] CenterDidrfjvTSAWSYDOGF0729-47-72 20:00:00 Test Item Value Reference Range Interpretation Comments Lymphocytes # (test code = Lymphocytes 1.9 1.0-5.5 #) [facility] CenterFaxpyxhIQMLRYRIUZ1350-10-45 20:00:00 Test Item Value Reference Range Interpretation Comments Monocytes # (test code 0.4 See_Comment [Aut omated message] The = Monocytes #) system which generated this result tra nsmitted reference range : <=0.8. The reference r joan was not used to int erpret this result as normal/abnormal . [facility] DVSNRQ8212-39-98 19:36:00 Test Item Value Reference Range Interpretation Comments Protein CSF (test code = Protein CSF) 26 15-45 [facility]2014-10-15 19:36:00 Test Item Value Reference Range Interpretation Comments Glucose CSF (test code = Glucose CSF) 54 45-80 [facility]2014-10-15 19:36:00 Test Item Value Reference Range Interpretation Comments Clarity CSF (test code = Clear (05/15/14 2:36 Clarity CSF) PM) [facility] IKQIJQ0957-35-81 19:36:00 Test Item Value Reference Range Interpretation Comments Supernat CSF (test Colorless (05/15/14 code = Supernat CSF) 2:36 PM) [facility]2014-10-15 19:36:00 Test Item Value Reference Range Interpretation Comments WBC CSF (test code = 0 See_Comment [Autom ated message] The WBC CSF) system which ge nerated this result transmit richard reference range : <=53. The reference range was not used to interpr et this result as robbie l/abnormal. [facility]2014-10-15 19:36:00 Test Item Value Reference Range Interpretation Comments Comment CSF (test Differential not code = Comment CSF) performed on WBC count of less than 5. [facility]2014-10-15 19:36:00 Test Item Value Reference Range Interpretation Comments RBC CSF (test code = 0 See_Comment [Autom ated message] The RBC CSF) system which ge nerated this result transmit richard reference range : <=03. The reference range was not used to interpr et this result as robbie l/abnormal. [facility] [id number] 19:36:00 Test Item Value Reference Range Interpretation Comments Tube Num CSF (test code = Tube Num CSF) 1 1 [facility]2014-10-15 19:36:00 Test Item Value Reference Range Interpretation Comments Color CSF (test code Colorless (05/15/14 2:36 = Color CSF) PM) [facility]2014-10-15 19:36:00 Test Item Value Reference Range Interpretation Comments Protein CSF (test code = Protein CSF) 26 15-45 [facility] [id number] 19:36:00 Test Item Value Reference Range Interpretation Comments Glucose CSF (test code = Glucose CSF) 54 45-80 [facility] [id number] 19:36:00 Test Item Value Reference Range Interpretation Comments Clarity CSF (test code = Clear (05/15/14 2:36 Clarity CSF) PM) [facility]2014-10-15 19:36:00 Test Item Value Reference Range Interpretation Comments Supernat CSF (test Colorless (05/15/14 code = Supernat CSF) 2:36 PM) [facility]2014-10-15 19:36:00 Test Item Value Reference Range Interpretation Comments WBC CSF (test code = 0 See_Comment [Autom ated message] The WBC CSF) system which ge nerated this result transmit richard reference range : <=53. The reference range was not used to interpr et this result as robbie l/abnormal. [facility]2014-10-15 19:36:00 Test Item Value Reference Range Interpretation Comments Comment CSF (test Differential not code = Comment CSF) performed on WBC count of less than 5. [facility]2014-10-15 19:36:00 Test Item Value Reference Range Interpretation Comments RBC CSF (test code = 0 See_Comment [Autom ated message] The RBC CSF) system which ge nerated this result transmit richard reference range : <=03. The reference range was not used to interpr et this result as robbie l/abnormal. [facility]2014-10-15 19:36:00 Test Item Value Reference Range Interpretation Comments Tube Num CSF (test code = Tube Num CSF) 1 1 [facility]2014-10-15 19:36:00 Test Item Value Reference Range Interpretation Comments Color CSF (test code Colorless (05/15/14 2:36 = Color CSF) PM) [facility]2014-10-15 19:36:00 Test Item Value Reference Range Interpretation Comments Protein CSF (test code = Protein CSF) 26 15-45 [facility]2014-10-15 19:36:00 Test Item Value Reference Range Interpretation Comments Glucose CSF (test code = Glucose CSF) 54 45-80 [facility]2014-10-15 19:36:00 Test Item Value Reference Range Interpretation Comments Clarity CSF (test code = Clear (05/15/14 2:36 Clarity CSF) PM) [facility]2014-10-15 19:36:00 Test Item Value Reference Range Interpretation Comments Supernat CSF (test Colorless (05/15/14 code = Supernat CSF) 2:36 PM) [facility] [id number] 19:36:00 Test Item Value Reference Range Interpretation Comments WBC CSF (test code = 0 See_Comment [Autom ated message] The WBC CSF) system which ge nerated this result transmit richard reference range : <=53. The reference range was not used to interpr et this result as robbie l/abnormal. [facility] [id number] 19:36:00 Test Item Value Reference Range Interpretation Comments Comment CSF (test Differential not code = Comment CSF) performed on WBC count of less than 5. [facility] [id number] 19:36:00 Test Item Value Reference Range Interpretation Comments RBC CSF (test code = 0 See_Comment [Autom ated message] The RBC CSF) system which ge nerated this result transmit richard reference range : <=03. The reference range was not used to interpr et this result as robbie l/abnormal. [facility] [id number] 19:36:00 Test Item Value Reference Range Interpretation Comments Tube Num CSF (test code = Tube Num CSF) 1 1 [facility] [id number] 19:36:00 Test Item Value Reference Range Interpretation Comments Color CSF (test code Colorless (05/15/14 2:36 = Color CSF) PM) [facility]lsycdpDWWHUOBWMSHW2553-27-63 18:45:00 Test Item Value Reference Range Interpretation Comments AGAP (test code = AGAP) 9.8 10.0-20.0 [facility]viewYsrcduuFBSUMYNLRSCT7344-19-15 18:45:00 Test Item Value Reference Range Interpretation Comments B/C Ratio (test code = B/C Ratio) 16 6-25 [facility]viewZnffiqoPFBTKGIYKOWG7176-78-42 18:45:00 Test Item Value Reference Range Interpretation Comments Globulin (test code = Globulin) 4.0 2.0-4.0 [facility]viewZcdqwjfVAZOPCDCUXLU5111-57-30 18:45:00 Test Item Value Reference Range Interpretation Comments A/G Ratio (test code = A/G Ratio) 1.1 0.7-1.6 [facility]viewEgdtclcACLAJZJWBZIM3593-37-33 18:45:00 Test Item Value Reference Range Interpretation Comments eGFR (test code = eGFR) 121 [facility]viewNcnmgzhOYUYCSOALGPO4523-64-16 18:45:00 Test Item Value Reference Range Interpretation Comments Alk Phos (test code = Alk Phos) 67 39-136 [facility]viewMjieexgQRZQIUSSJQML4067-50-94 18:45:00 Test Item Value Reference Range Interpretation Comments Bili Total (test code = Bili Total) 0.6 0.2-1.3 [facility] HospitalGgfvqkcVSUZWOKOEXMW2962-43-73 18:45:00 Test Item Value Reference Range Interpretation Comments Calcium Lvl (test code = Calcium Lvl) 9.0 8.5-10.5 [facility] HospitalYyoksykIVJRHMUQSTCN3968-12-69 18:45:00 Test Item Value Reference Range Interpretation Comments Potassium Lvl (test code = Potassium 3.8 3.5-5.1 Lvl) [facility] HospitalGzxlqzlUXNSYZGGPUPB0218-56-40 18:45:00 Test Item Value Reference Range Interpretation Comments CO2 (test code = CO2) 28 24-32 [facility] HospitalGmubmwrPFXDPXWSEOSB9948-21-99 18:45:00 Test Item Value Reference Range Interpretation Comments Sodium Lvl (test code = Sodium Lvl) 140 135-145 [facility] HospitalAldcmmmMICANCHUIEUV7361-76-74 18:45:00 Test Item Value Reference Range Interpretation Comments Chloride Lvl (test code = Chloride Lvl) 106 95-109 [facility] HospitalScyefqbHJASAWXTQIHQ7042-75-05 18:45:00 Test Item Value Reference Range Interpretation Comments AST (test code = AST) 12 See_Comment [Auto mated message] The system which ge nerated this result transmit richard reference range : <=37. The reference range was not used to interpr et this result as robbie l/abnormal. [facility] HospitalSckekpyMMGFOZOOHCJO7338-05-31 18:45:00 Test Item Value Reference Range Interpretation Comments Total Protein (test code = Total 8.3 6.4-8.4 Protein) [facility] HospitalKeermhoNSAKWHFOELHI2001-90-39 18:45:00 Test Item Value Reference Range Interpretation Comments Albumin Lvl (test code = Albumin Lvl) 4.3 3.5-5.0 [facility] HospitalXtvujdaBKWQYUFKMQXI7909-32-44 18:45:00 Test Item Value Reference Range Interpretation Comments ALT (test code = ALT) 17 See_Comment [Auto mated message] The system which ge nerated this result transmit richard reference range : <=65. The reference range was not used to interpr et this result as robbie l/abnormal. [facility] HospitalHfyujsaMFYTRNFTHMAL0824-34-69 18:45:00 Test Item Value Reference Range Interpretation Comments Creatinine Lvl (test code = Creatinine 0.7 0.5-1.4 Lvl) [facility] HospitalYbbxlipJXOOITWMMPHH4940-46-33 18:45:00 Test Item Value Reference Range Interpretation Comments BUN (test code = BUN) 11 7-22 [facility]viewTucwdwtOWCPPUXCBISX6919-69-97 18:45:00 Test Item Value Reference Range Interpretation Comments Glucose Lvl (test code = Glucose Lvl) 87 70-99 [place] [id number] 18:45:00 Test Item Value Reference Range Interpretation Comments S Preg (test code = S Negative *NA*(05/06/14 Preg) 1:45 PM) [facility]PievcxxXHSEUFGIIN5083-37-71 18:45:00 Test Item Value Reference Range Interpretation Comments Basophils (test code = 0.7 See_Comment [Aut omated message] The Basophils) system which ge nerated this result tra nsmitted reference range : <=1.0. The reference r joan was not used to int erpret this result as normal/abnormal . [facility] CenterDqijrbwHIYWJFMYXC8731-76-29 18:45:00 Test Item Value Reference Range Interpretation Comments Eosinophils (test code = 1.0 See_Comment [A utomated message] The Eosinophils) system which ge nerated this result tra nsmitted reference range : <=4.0. The reference r joan was not used to int erpret this result as normal/abnormal . [facility] CenterMvaojdgGKWHNYYDPB3266-52-31 18:45:00 Test Item Value Reference Range Interpretation Comments Eosinophils # (test code 0.1 See_Comment [A utomated message] The = Eosinophils #) system whic h generated this result tra nsmitted reference range : <=0.5. The reference r joan was not used to int erpret this result as normal/abnormal . [facility] CenterWqtzsclGGBFMJGWPI8805-44-97 18:45:00 Test Item Value Reference Range Interpretation Comments Monocytes # (test code 0.6 See_Comment [Aut omated message] The = Monocytes #) system which generated this result tra nsmitted reference range : <=0.8. The reference r joan was not used to int erpret this result as normal/abnormal . [facility] CenterIgqnhquQWBCHCGWNY1030-44-17 18:45:00 Test Item Value Reference Range Interpretation Comments Monocytes (test code = Monocytes) 5.8 2.0-12.0 [facility] CenterFjxnlytDGLOHSWPDL9958-23-10 18:45:00 Test Item Value Reference Range Interpretation Comments Basophils # (test code 0.1 See_Comment [Aut omated message] The = Basophils #) system which generated this result tra nsmitted reference range : <=0.2. The reference r joan was not used to int erpret this result as normal/abnormal . [facility] CenterSubjmceYAKGTLENVV8016-52-13 18:45:00 Test Item Value Reference Range Interpretation Comments Lymphocytes (test code = Lymphocytes) 21.5 20.0-40.0 [facility] CenterKbnpghlNJJLHHGVRY5500-29-88 18:45:00 Test Item Value Reference Range Interpretation Comments Lymphocytes # (test code = Lymphocytes 2.1 1.0-5.5 #) [facility] CenterBcjabyiLMUHOJGAQJ4340-07-63 18:45:00 Test Item Value Reference Range Interpretation Comments Segs-Bands # (test code = Segs-Bands #) 7.0 1.5-8.1 [facility] CenterBccidktDWSOPFACJU7333-98-80 18:45:00 Test Item Value Reference Range Interpretation Comments Segs (test code = Segs) 71.0 45.0-75.0 [facility] CenterDppntdqEJJCZHVTUH8589-92-61 18:45:00 Test Item Value Reference Range Interpretation Comments MCHC (test code = MCHC) 32.9 32.0-36.0 [facility] CenterIxkrlvzDUEDUUHARZ2751-63-85 18:45:00 Test Item Value Reference Range Interpretation Comments MCH (test code = MCH) 29.2 pg 27.0-31.0 [facility] CenterCuwgcdfTNOSNWHHWN6096-75-62 18:45:00 Test Item Value Reference Range Interpretation Comments MCV (test code = MCV) 88.7 80.0-98.0 [facility] CenterJlzjqzbIBPKLQVQEP2237-63-14 18:45:00 Test Item Value Reference Range Interpretation Comments MPV (test code = MPV) 8.4 7.4-10.4 [facility] CenterZbhjfykOEZTZWXUWM9377-53-24 18:45:00 Test Item Value Reference Range Interpretation Comments Platelet (test code = Platelet) 264 133-450 [facility] CenterDbrltblVUNEGULNUP8297-52-22 18:45:00 Test Item Value Reference Range Interpretation Comments RDW (test code = RDW) 12.8 11.5-14.5 [facility] CenterAlikwciIEMEMUJVMT1878-58-93 18:45:00 Test Item Value Reference Range Interpretation Comments Hgb (test code = Hgb) 14.6 12.0-16.0 [facility] CenterDpfyanaJJQHPNOKZW2160-95-81 18:45:00 Test Item Value Reference Range Interpretation Comments Hct (test code = Hct) 44.3 36.0-48.0 [facility] CenterZjodsovCCUFZPXIVL0801-04-35 18:45:00 Test Item Value Reference Range Interpretation Comments WBC (test code = WBC) 9.9 3.7-10.4 [facility] CenterJbdlddkNANMBTBEXR6516-57-02 18:45:00 Test Item Value Reference Range Interpretation Comments RBC (test code = RBC) 4.99 4.20-5.40 [facility]rictobWKPDRMNFOH3179-73-25 18:45:00 Test Item Value Reference Range Interpretation Comments [facility] HIV 4th GEN (test Negative (05/06/14 1:45 code = [facility] HIV 4th PM) GEN) [facility] HospitalSdcbywuLEYZPZIWGBAJ8339-88-20 18:45:00 Test Item Value Reference Range Interpretation Comments AGAP (test code = AGAP) 9.8 10.0-20.0 [facility] HospitalKlyewdoNFSHHZFIHEQE9100-05-31 18:45:00 Test Item Value Reference Range Interpretation Comments B/C Ratio (test code = B/C Ratio) 16 6-25 [facility] HospitalRgoejgzSFBCVHURGGSN5564-22-98 18:45:00 Test Item Value Reference Range Interpretation Comments Globulin (test code = Globulin) 4.0 2.0-4.0 [facility] HospitalTlgtlcuWQKNSPVQTKQP8353-04-29 18:45:00 Test Item Value Reference Range Interpretation Comments A/G Ratio (test code = A/G Ratio) 1.1 0.7-1.6 [facility] HospitalGpkjutePYXZPQVCFWQR7981-36-59 18:45:00 Test Item Value Reference Range Interpretation Comments eGFR (test code = eGFR) 121 [facility] HospitalNxklpvhSVCLGGAFQXYA1006-91-92 18:45:00 Test Item Value Reference Range Interpretation Comments Alk Phos (test code = Alk Phos) 67 39-136 [facility] HospitalJtepmtuJDAVTBXELODD7501-98-66 18:45:00 Test Item Value Reference Range Interpretation Comments Bili Total (test code = Bili Total) 0.6 0.2-1.3 [facility] HospitalKlwkfttCWHZYYTQCKKY0417-57-68 18:45:00 Test Item Value Reference Range Interpretation Comments Calcium Lvl (test code = Calcium Lvl) 9.0 8.5-10.5 [facility] HospitalRpvpvjvZWHZUPMLFPYT1545-07-81 18:45:00 Test Item Value Reference Range Interpretation Comments Potassium Lvl (test code = Potassium 3.8 3.5-5.1 Lvl) [facility] HospitalQqeczvdSHXGCSGWBJFC4341-26-27 18:45:00 Test Item Value Reference Range Interpretation Comments CO2 (test code = CO2) 28 24-32 [facility] HospitalUsmgpghZZTTGHPJLQNS2038-27-12 18:45:00 Test Item Value Reference Range Interpretation Comments Sodium Lvl (test code = Sodium Lvl) 140 135-145 [facility] HospitalVwtyezpRDEFSCYPECQB5382-22-19 18:45:00 Test Item Value Reference Range Interpretation Comments Chloride Lvl (test code = Chloride Lvl) 106 95-109 [facility] HospitalZjtlgooYPUALXPOOJEO0937-06-43 18:45:00 Test Item Value Reference Range Interpretation Comments AST (test code = AST) 12 See_Comment [Auto mated message] The system which ge nerated this result transmit richard reference range : <=37. The reference range was not used to interpr et this result as robbie l/abnormal. [facility] HospitalXkvhbiwSFNJQHBEMDNG2463-25-62 18:45:00 Test Item Value Reference Range Interpretation Comments Total Protein (test code = Total 8.3 6.4-8.4 Protein) [facility] HospitalGkaazdpASDARQFEEOAB4181-63-61 18:45:00 Test Item Value Reference Range Interpretation Comments Albumin Lvl (test code = Albumin Lvl) 4.3 3.5-5.0 [facility] HospitalMkjhjujUGKCSFRJSUUD5201-63-30 18:45:00 Test Item Value Reference Range Interpretation Comments ALT (test code = ALT) 17 See_Comment [Auto mated message] The system which ge nerated this result transmit richard reference range : <=65. The reference range was not used to interpr et this result as robbie l/abnormal. [facility] HospitalLcicpavJCMVAUJAZMHL6905-94-98 18:45:00 Test Item Value Reference Range Interpretation Comments Creatinine Lvl (test code = Creatinine 0.7 0.5-1.4 Lvl) [facility] HospitalQcacsnfNTHUOJJWOALO5097-08-26 18:45:00 Test Item Value Reference Range Interpretation Comments BUN (test code = BUN) 11 7-22 [facility] HospitalMtulnftGEWJSJLFCVSP6711-93-46 18:45:00 Test Item Value Reference Range Interpretation Comments Glucose Lvl (test code = Glucose Lvl) 87 70-99 [place] [id number] 18:45:00 Test Item Value Reference Range Interpretation Comments S Preg (test code = S Negative *NA*(05/06/14 Preg) 1:45 PM) [facility] CenterSbjwrfrALVFZPFUMW7694-70-48 18:45:00 Test Item Value Reference Range Interpretation Comments Basophils (test code = 0.7 See_Comment [Aut omated message] The Basophils) system which ge nerated this result tra nsmitted reference range : <=1.0. The reference r joan was not used to int erpret this result as normal/abnormal . [facility] CenterHmeiuyrRUFCUKINAI7990-78-81 18:45:00 Test Item Value Reference Range Interpretation Comments Eosinophils (test code = 1.0 See_Comment [A utomated message] The Eosinophils) system which ge nerated this result tra nsmitted reference range : <=4.0. The reference r joan was not used to int erpret this result as normal/abnormal . [facility] CenterTdyueakSMXTJFGZKK4955-27-70 18:45:00 Test Item Value Reference Range Interpretation Comments Eosinophils # (test code 0.1 See_Comment [A utomated message] The = Eosinophils #) system wh h generated this result tra nsmitted reference range : <=0.5. The reference r joan was not used to int erpret this result as normal/abnormal . [facility] CenterDkmfkzfNTUNVSXVAX6818-68-41 18:45:00 Test Item Value Reference Range Interpretation Comments Monocytes # (test code 0.6 See_Comment [Aut omated message] The = Monocytes #) system which generated this result tra nsmitted reference range : <=0.8. The reference r joan was not used to int erpret this result as normal/abnormal . [facility] CenterKzwchnsHEPWYYPZDD2270-24-66 18:45:00 Test Item Value Reference Range Interpretation Comments Monocytes (test code = Monocytes) 5.8 2.0-12.0 [facility] CenterCdxljkpZYAJKUZNEV0893-40-88 18:45:00 Test Item Value Reference Range Interpretation Comments Basophils # (test code 0.1 See_Comment [Aut omated message] The = Basophils #) system which generated this result tra nsmitted reference range : <=0.2. The reference r joan was not used to int erpret this result as normal/abnormal . [facility] CenterQwbjgdrLUOOXYEQSF5096-53-73 18:45:00 Test Item Value Reference Range Interpretation Comments Lymphocytes (test code = Lymphocytes) 21.5 20.0-40.0 [facility] CenterSmalczqXLJBLLFTQF4316-90-21 18:45:00 Test Item Value Reference Range Interpretation Comments Lymphocytes # (test code = Lymphocytes 2.1 1.0-5.5 #) [facility] CenterUceknlzLDVPXFAZDW5647-45-23 18:45:00 Test Item Value Reference Range Interpretation Comments Segs-Bands # (test code = Segs-Bands #) 7.0 1.5-8.1 [facility] CenterHkkpveeEBVVLFYKOS3516-30-41 18:45:00 Test Item Value Reference Range Interpretation Comments Segs (test code = Segs) 71.0 45.0-75.0 [facility] CenterVicognaRIFLEAJXEY3905-34-82 18:45:00 Test Item Value Reference Range Interpretation Comments MCHC (test code = MCHC) 32.9 32.0-36.0 [facility] CenterHpmakyzHPSCLDZYFV2186-22-65 18:45:00 Test Item Value Reference Range Interpretation Comments MCH (test code = MCH) 29.2 pg 27.0-31.0 [facility] CenterWyodgpwEFSQBWWBCB0598-48-25 18:45:00 Test Item Value Reference Range Interpretation Comments MCV (test code = MCV) 88.7 80.0-98.0 [facility] CenterFiplbupDGYXCKSMQY9285-03-97 18:45:00 Test Item Value Reference Range Interpretation Comments MPV (test code = MPV) 8.4 7.4-10.4 [facility] CenterDdpdycsVAVMUYQCIU2674-81-33 18:45:00 Test Item Value Reference Range Interpretation Comments Platelet (test code = Platelet) 264 133-450 [facility] CenterHshdbuuHZMEXONUYO6586-39-56 18:45:00 Test Item Value Reference Range Interpretation Comments RDW (test code = RDW) 12.8 11.5-14.5 [facility] CenterUrhyswoVJBWFXBRXV5152-01-89 18:45:00 Test Item Value Reference Range Interpretation Comments Hgb (test code = Hgb) 14.6 12.0-16.0 [facility] CenterYgpcjlfUBJQYNFMZL4797-08-87 18:45:00 Test Item Value Reference Range Interpretation Comments Hct (test code = Hct) 44.3 36.0-48.0 [facility] CenterBozychgZINBDYVNBB2055-58-38 18:45:00 Test Item Value Reference Range Interpretation Comments WBC (test code = WBC) 9.9 3.7-10.4 [facility] CenterAxrmjtoPKEKQPZHEO8212-15-17 18:45:00 Test Item Value Reference Range Interpretation Comments RBC (test code = RBC) 4.99 4.20-5.40 [facility]UvkrvkzELZQJMXOPO5650-32-16 18:45:00 Test Item Value Reference Range Interpretation Comments [facility] HIV 4th GEN (test Negative (05/06/14 1:45 code = [facility] HIV 4th PM) GEN) [facility] HospitalGgurzwvZZDAGTFQDZMB5385-32-04 18:45:00 Test Item Value Reference Range Interpretation Comments AGAP (test code = AGAP) 9.8 10.0-20.0 [facility] HospitalZtyzitxITMZCXDQWNMY8562-60-26 18:45:00 Test Item Value Reference Range Interpretation Comments B/C Ratio (test code = B/C Ratio) 16 6-25 [facility] HospitalAsuhejuAAAUNMDTWOBZ8167-81-22 18:45:00 Test Item Value Reference Range Interpretation Comments Globulin (test code = Globulin) 4.0 2.0-4.0 [facility] HospitalEgqjszkLBQHOWXTMRUA9661-76-26 18:45:00 Test Item Value Reference Range Interpretation Comments A/G Ratio (test code = A/G Ratio) 1.1 0.7-1.6 [facility] HospitalQetwphbTPBMPXTYSEEE7025-92-57 18:45:00 Test Item Value Reference Range Interpretation Comments eGFR (test code = eGFR) 121 [facility] HospitalYucokatWLCEZYAHYCMT5644-08-61 18:45:00 Test Item Value Reference Range Interpretation Comments Alk Phos (test code = Alk Phos) 67 39-136 [facility] HospitalQkhrypjBZAMDSTWBXPI3260-58-00 18:45:00 Test Item Value Reference Range Interpretation Comments Bili Total (test code = Bili Total) 0.6 0.2-1.3 [facility] HospitalMhtcixhTKEXZMBWZDLX8296-34-81 18:45:00 Test Item Value Reference Range Interpretation Comments Calcium Lvl (test code = Calcium Lvl) 9.0 8.5-10.5 [facility] HospitalBiufaqvCTBEATHJXGPS7660-28-83 18:45:00 Test Item Value Reference Range Interpretation Comments Potassium Lvl (test code = Potassium 3.8 3.5-5.1 Lvl) [facility] HospitalXckqafbEQLZXYLHWSSI0114-48-21 18:45:00 Test Item Value Reference Range Interpretation Comments CO2 (test code = CO2) 28 24-32 [facility] HospitalFnbzftvDHIQZWIYMRFL7651-74-17 18:45:00 Test Item Value Reference Range Interpretation Comments Sodium Lvl (test code = Sodium Lvl) 140 135-145 [facility] HospitalMavvspjPQTCZUVKJKHO5638-46-38 18:45:00 Test Item Value Reference Range Interpretation Comments Chloride Lvl (test code = Chloride Lvl) 106 95-109 [facility] HospitalOcczhzfHOAODKHPCSDT3405-70-20 18:45:00 Test Item Value Reference Range Interpretation Comments AST (test code = AST) 12 See_Comment [Auto mated message] The system which ge nerated this result transmit richard reference range : <=37. The reference range was not used to interpr et this result as robbie l/abnormal. [facility] HospitalFhkdpxbQEESVWMGXXVC9533-60-51 18:45:00 Test Item Value Reference Range Interpretation Comments Total Protein (test code = Total 8.3 6.4-8.4 Protein) [facility] HospitalMoktrtdYTEYFXTRHJOC7597-33-38 18:45:00 Test Item Value Reference Range Interpretation Comments Albumin Lvl (test code = Albumin Lvl) 4.3 3.5-5.0 [facility] [facility]NZ[facility]IHKQS9571-94-44 18:45:00 Test Item Value Reference Range Interpretation Comments ALT (test code = ALT) 17 See_Comment [Auto mated message] The system which ge nerated this result transmit richard reference range : <=65. The reference range was not used to interpr et this result as robbie l/abnormal. [facility]CdqmqmlALPRIFUQSSCD5963-09-71 18:45:00 Test Item Value Reference Range Interpretation Comments Creatinine Lvl (test code = Creatinine 0.7 0.5-1.4 Lvl) [facility] HospitalMsyjzyeKPKPILXZHWZF3747-40-98 18:45:00 Test Item Value Reference Range Interpretation Comments BUN (test code = BUN) 11 7-22 [facility] HospitalNubcnmaLIXPHTNGJHWY6335-33-71 18:45:00 Test Item Value Reference Range Interpretation Comments Glucose Lvl (test code = Glucose Lvl) 87 70-99 [facility]BienxlnJZAWMLEQFLHRH8422-04-97 18:45:00 Test Item Value Reference Range Interpretation Comments S Preg (test code = S Negative *NA*(05/06/14 Preg) 1:45 PM) [facility]ObemytpAQCITCHKZS1076-23-14 18:45:00 Test Item Value Reference Range Interpretation Comments Basophils (test code = 0.7 See_Comment [Aut omated message] The Basophils) system which ge nerated this result tra nsmitted reference range : <=1.0. The reference r joan was not used to int erpret this result as normal/abnormal . [facility] CenterMqsvdndQUARHQHXOG8740-20-05 18:45:00 Test Item Value Reference Range Interpretation Comments Eosinophils (test code = 1.0 See_Comment [A utomated message] The Eosinophils) system which ge nerated this result tra nsmitted reference range : <=4.0. The reference r joan was not used to int erpret this result as normal/abnormal . [facility] CenterWrvpgdaRDXQNNOTKE8462-25-11 18:45:00 Test Item Value Reference Range Interpretation Comments Eosinophils # (test code 0.1 See_Comment [A utomated message] The = Eosinophils #) system whic h generated this result tra nsmitted reference range : <=0.5. The reference r joan was not used to int erpret this result as normal/abnormal . [facility] CenterLlhdvgmZSZJBMMXVV3692-79-18 18:45:00 Test Item Value Reference Range Interpretation Comments Monocytes # (test code 0.6 See_Comment [Aut omated message] The = Monocytes #) system which generated this result tra nsmitted reference range : <=0.8. The reference r joan was not used to int erpret this result as normal/abnormal . [facility] CenterEcdochaQZHXZURSBI5282-55-34 18:45:00 Test Item Value Reference Range Interpretation Comments Monocytes (test code = Monocytes) 5.8 2.0-12.0 [facility] CenterCwmdjydBSRFAOCBMH1434-38-82 18:45:00 Test Item Value Reference Range Interpretation Comments Basophils # (test code 0.1 See_Comment [Aut omated message] The = Basophils #) system which generated this result tra nsmitted reference range : <=0.2. The reference r joan was not used to int erpret this result as normal/abnormal . [facility] CenterVrxhexqIGMYVLENTK4611-94-35 18:45:00 Test Item Value Reference Range Interpretation Comments Lymphocytes (test code = Lymphocytes) 21.5 20.0-40.0 [facility] CenterIbrgyemGXYROKBWQP0625-50-79 18:45:00 Test Item Value Reference Range Interpretation Comments Lymphocytes # (test code = Lymphocytes 2.1 1.0-5.5 #) [facility] CenterIxlaivfUCYGKMVMSR4358-45-37 18:45:00 Test Item Value Reference Range Interpretation Comments Segs-Bands # (test code = Segs-Bands #) 7.0 1.5-8.1 [facility] CenterVaklefuVGMTOMOTAH3469-04-30 18:45:00 Test Item Value Reference Range Interpretation Comments Segs (test code = Segs) 71.0 45.0-75.0 [facility] CenterQuusdkzCQBYINDPIZ7435-05-90 18:45:00 Test Item Value Reference Range Interpretation Comments MCHC (test code = MCHC) 32.9 32.0-36.0 [facility] CenterNthlljzTSCQIGGMZX7814-55-10 18:45:00 Test Item Value Reference Range Interpretation Comments MCH (test code = MCH) 29.2 pg 27.0-31.0 [facility] CenterInzuhijUZDVMQCFBI9523-43-57 18:45:00 Test Item Value Reference Range Interpretation Comments MCV (test code = MCV) 88.7 80.0-98.0 [facility] CenterXylnnpuEQBQPXKLLM1109-43-70 18:45:00 Test Item Value Reference Range Interpretation Comments MPV (test code = MPV) 8.4 7.4-10.4 [facility] CenterGdkrlnaDFXHCGTAJT4683-57-17 18:45:00 Test Item Value Reference Range Interpretation Comments Platelet (test code = Platelet) 264 133-450 [facility] CenterPcwpwppBKLCNKUHVF1551-50-89 18:45:00 Test Item Value Reference Range Interpretation Comments RDW (test code = RDW) 12.8 11.5-14.5 [facility] CenterLvesqhoGHXYORSIPR3838-99-55 18:45:00 Test Item Value Reference Range Interpretation Comments Hgb (test code = Hgb) 14.6 12.0-16.0 [facility] CenterKanxmeiRLVDTAWTZZ8137-10-88 18:45:00 Test Item Value Reference Range Interpretation Comments Hct (test code = Hct) 44.3 36.0-48.0 [facility] CenterKqzyegiYABYWDUVZZ1662-20-08 18:45:00 Test Item Value Reference Range Interpretation Comments WBC (test code = WBC) 9.9 3.7-10.4 [facility]NABFIRAQJP1558-50-61 18:45:00 Test Item Value Reference Range Interpretation Comments RBC (test code = RBC) 4.99 4.20-5.40 [facility] HospitalTltuiufIAXEINOHSR2109-60-45 18:45:00 Test Item Value Reference Range Interpretation Comments CDC HIV 4th GEN (test Negative (05/06/14 1:45 code = CDC HIV 4th PM) GEN) [facility]2013-11-05 14:57:00 Test Item Value Reference Range Interpretation Comments Protein CSF (test code = Protein CSF) 26 15-45 N [facility]2013-11-05 14:57:00 Test Item Value Reference Range Interpretation Comments Glucose CSF (test code = Glucose CSF) 65 45-80 N [facility]2013-11-05 14:57:00 Test Item Value Reference Range Interpretation Comments Monocyte CSF (test code = Monocyte CSF) 7 15-45 L [facility]2013-11-05 14:57:00 Test Item Value Reference Range Interpretation Comments Segs CSF (test code = 1 See_Comment N [Auto mated message] The Segs CSF) system which ge nerated this result transmit richard reference range : <=6. The reference range was not used to interpr et this result as robbie l/abnormal. [facility]2013-11-05 14:57:00 Test Item Value Reference Range Interpretation Comments Lymph CSF (test code = Lymph CSF) 92 40-80 H [facility]2013-11-05 14:57:00 Test Item Value Reference Range Interpretation Comments RBC CSF (test code = 47 See_Comment H [Autom ated message] The RBC CSF) system which ge nerated this result transmit richard reference range : <=0. The reference range was not used to interpr et this result as robbie l/abnormal. [facility]2013-11-05 14:57:00 Test Item Value Reference Range Interpretation Comments Clarity CSF (test code = Clear (06/05/2013 N Clarity CSF) 08:57:00) [facility]2013-11-05 14:57:00 Test Item Value Reference Range Interpretation Comments WBC CSF (test code = 14 See_Comment H [Autom ated message] The WBC CSF) system which ge nerated this result transmit richard reference range : <=5. The reference range was not used to interpr et this result as robbie l/abnormal. [facility] [id number] 14:57:00 Test Item Value Reference Range Interpretation Comments Supernat CSF (test Colorless (06/05/2013 N code = Supernat CSF) 08:57:00) [facility] [id number] 14:57:00 Test Item Value Reference Range Interpretation Comments Tube Num CSF (test code = Tube Num CSF) 3 1 [facility] HospitalIguanaFixVQBYYU7279-58-07 14:57:00 Test Item Value Reference Range Interpretation Comments Color CSF (test code Colorless (06/05/2013 N = Color CSF) 08:57:00) [facility] [id number] 14:57:00 Test Item Value Reference Range Interpretation Comments Protein CSF (test code = Protein CSF) 26 15-45 N [facility] [id number] 14:57:00 Test Item Value Reference Range Interpretation Comments Glucose CSF (test code = Glucose CSF) 65 45-80 N [facility] [id number] 14:57:00 Test Item Value Reference Range Interpretation Comments Monocyte CSF (test code = Monocyte CSF) 7 15-45 L [facility] [id number] 14:57:00 Test Item Value Reference Range Interpretation Comments Segs CSF (test code = 1 See_Comment N [Auto mated message] The Segs CSF) system which ge nerated this result transmit richard reference range : <=6. The reference range was not used to interpr et this result as robbie l/abnormal. [facility] HospitalIguanaFixLJWDCL8573-76-09 14:57:00 Test Item Value Reference Range Interpretation Comments Lymph CSF (test code = Lymph CSF) 92 40-80 H [facility] HospitalIguanaFixDMUMPI6007-78-06 14:57:00 Test Item Value Reference Range Interpretation Comments RBC CSF (test code = 47 See_Comment H [Autom ated message] The RBC CSF) system which ge nerated this result transmit richard reference range : <=0. The reference range was not used to interpr et this result as robbie l/abnormal. [facility] HospitalIguanaFixHKCWJV7160-04-05 14:57:00 Test Item Value Reference Range Interpretation Comments Clarity CSF (test code = Clear (06/05/2013 N Clarity CSF) 08:57:00) [facility] [id number] 14:57:00 Test Item Value Reference Range Interpretation Comments WBC CSF (test code = 14 See_Comment H [Autom ated message] The WBC CSF) system which ge nerated this result transmit richard reference range : <=5. The reference range was not used to interpr et this result as robbie l/abnormal. [facility] [id number] 14:57:00 Test Item Value Reference Range Interpretation Comments Supernat CSF (test Colorless (06/05/2013 N code = Supernat CSF) 08:57:00) [facility] [id number] 14:57:00 Test Item Value Reference Range Interpretation Comments Tube Num CSF (test code = Tube Num CSF) 3 1 [facility]2013-11-05 14:57:00 Test Item Value Reference Range Interpretation Comments Color CSF (test code Colorless (06/05/2013 N = Color CSF) 08:57:00) [facility]2013-11-05 14:57:00 Test Item Value Reference Range Interpretation Comments Protein CSF (test code = Protein CSF) 26 15-45 N [facility] [id number] 14:57:00 Test Item Value Reference Range Interpretation Comments Glucose CSF (test code = Glucose CSF) 65 45-80 N [facility]2013-11-05 14:57:00 Test Item Value Reference Range Interpretation Comments Monocyte CSF (test code = Monocyte CSF) 7 15-45 L [facility] [id number] 14:57:00 Test Item Value Reference Range Interpretation Comments Segs CSF (test code = 1 See_Comment N [Auto mated message] The Segs CSF) system which ge nerated this result transmit richard reference range : <=6. The reference range was not used to interpr et this result as robbie l/abnormal. [facility] [id number] 14:57:00 Test Item Value Reference Range Interpretation Comments Lymph CSF (test code = Lymph CSF) 92 40-80 H [facility] [id number] 14:57:00 Test Item Value Reference Range Interpretation Comments RBC CSF (test code = 47 See_Comment H [Autom ated message] The RBC CSF) system which ge nerated this result transmit richard reference range : <=0. The reference range was not used to interpr et this result as robbie l/abnormal. [facility] [id number] 14:57:00 Test Item Value Reference Range Interpretation Comments Clarity CSF (test code = Clear (06/05/2013 N Clarity CSF) 08:57:00) [facility] [id number] 14:57:00 Test Item Value Reference Range Interpretation Comments WBC CSF (test code = 14 See_Comment H [Autom ated message] The WBC CSF) system which ge nerated this result transmit richard reference range : <=5. The reference range was not used to interpr et this result as robbie l/abnormal. [facility] [id number] 14:57:00 Test Item Value Reference Range Interpretation Comments Supernat CSF (test Colorless (06/05/2013 N code = Supernat CSF) 08:57:00) [facility] [id number] 14:57:00 Test Item Value Reference Range Interpretation Comments Tube Num CSF (test code = Tube Num CSF) 3 1 [facility] [id number] 14:57:00 Test Item Value Reference Range Interpretation Comments Color CSF (test code Colorless (06/05/2013 N = Color CSF) 08:57:00) [facility] [id number] 23:25:00 Test Item Value Reference Range Interpretation Comments Protein CSF (test code = Protein CSF) 34 15-45 N [id number] 23:25:00 Test Item Value Reference Range Interpretation Comments Lymph CSF (test code = Lymph CSF) 93 40-80 H [facility] Hosp[id number] 23:25:00 Test Item Value Reference Range Interpretation Comments Monocyte CSF (test code = Monocyte CSF) 6 15-45 L [facility] H[id number] 23:25:00 Test Item Value Reference Range Interpretation Comments Eos CSF (test code = Eos CSF) 1 [id number] 23:25:00 Test Item Value Reference Range Interpretation Comments Segs CSF (test code = 0 See_Comment N [Auto mated message] The Segs CSF) system which ge nerated this result transmit richard reference range : <=6. The reference range was not used to interpr et this result as robbie l/abnormal. [facility]IguanaFixAMNTRJ1392-32-01 23:25:00 Test Item Value Reference Range Interpretation Comments RBC CSF (test code = 16 See_Comment H [Autom ated message] The RBC CSF) system which ge nerated this result transmit richard reference range : <=0. The reference range was not used to interpr et this result as robbie l/abnormal. [facility] [id number] 23:25:00 Test Item Value Reference Range Interpretation Comments Color CSF (test code Colorless (05/31/2013 N = Color CSF) 18:25:00) [facility] [id number] 23:25:00 Test Item Value Reference Range Interpretation Comments Tube Num CSF (test code = Tube Num CSF) 3 1 [facility]IguanaFixTCTEBY1709-09-80 23:25:00 Test Item Value Reference Range Interpretation Comments Supernat CSF (test Colorless (05/31/2013 N code = Supernat CSF) 18:25:00) [facility] [id number] 23:25:00 Test Item Value Reference Range Interpretation Comments Clarity CSF (test code = Clear (05/31/2013 N Clarity CSF) 18:25:00) [facility] [id number] 23:25:00 Test Item Value Reference Range Interpretation Comments WBC CSF (test code = 28 See_Comment H [Autom ated message] The WBC CSF) system which ge nerated this result transmit richard reference range : <=5. The reference range was not used to interpr et this result as robbie l/abnormal. [id number] 23:25:00 Test Item Value Reference Range Interpretation Comments Glucose CSF (test code = Glucose CSF) 51 45-80 N [id number] 23:25:00 Test Item Value Reference Range Interpretation Comments Segs CSF (test code = 0 See_Comment N [Auto mated message] The Segs CSF) system which ge nerated this result transmit richard reference range : <=6. The reference range was not used to interpr et this result as robbie l/abnormal. [id number] 23:25:00 Test Item Value Reference Range Interpretation Comments Monocyte CSF (test code = Monocyte CSF) 2 15-45 L [facility] [id number] 23:25:00 Test Item Value Reference Range Interpretation Comments Lymph CSF (test code = Lymph CSF) 98 40-80 H [facility]2013-10-31 23:25:00 Test Item Value Reference Range Interpretation Comments Tube Num CSF (test code = Tube Num CSF) 1 1 [facility]2013-10-31 23:25:00 Test Item Value Reference Range Interpretation Comments Supernat CSF (test Colorless (05/31/2013 N code = Supernat CSF) 18:25:00) [facility]2013-10-31 23:25:00 Test Item Value Reference Range Interpretation Comments Clarity CSF (test code = Clear (05/31/2013 N Clarity CSF) 18:25:00) [facility]2013-10-31 23:25:00 Test Item Value Reference Range Interpretation Comments Color CSF (test code Colorless (05/31/2013 N = Color CSF) 18:25:00) [facility]2013-10-31 23:25:00 Test Item Value Reference Range Interpretation Comments RBC CSF (test code = 21 See_Comment H [Autom ated message] The RBC CSF) system which ge nerated this result transmit richard reference range : <=0. The reference range was not used to interpr et this result as robbie l/abnormal. [facility]2013-10-31 23:25:00 Test Item Value Reference Range Interpretation Comments WBC CSF (test code = 17 See_Comment H [Autom ated message] The WBC CSF) system which ge nerated this result transmit richard reference range : <=5. The reference range was not used to interpr et this result as robbie l/abnormal. [facility] [id number] 23:25:00 Test Item Value Reference Range Interpretation Comments Protein CSF (test code = Protein CSF) 34 15-45 N [facility] [id number] 23:25:00 Test Item Value Reference Range Interpretation Comments Lymph CSF (test code = Lymph CSF) 93 40-80 H [facility]2013-10-31 23:25:00 Test Item Value Reference Range Interpretation Comments Monocyte CSF (test code = Monocyte CSF) 6 15-45 L [facility]2013-10-31 23:25:00 Test Item Value Reference Range Interpretation Comments Eos CSF (test code = Eos CSF) 1 [facility]2013-10-31 23:25:00 Test Item Value Reference Range Interpretation Comments Segs CSF (test code = 0 See_Comment N [Auto mated message] The Segs CSF) system which ge nerated this result transmit richard reference range : <=6. The reference range was not used to interpr et this result as robbie l/abnormal. [facility]2013-10-31 23:25:00 Test Item Value Reference Range Interpretation Comments RBC CSF (test code = 16 See_Comment H [Autom ated message] The RBC CSF) system which ge nerated this result transmit richard reference range : <=0. The reference range was not used to interpr et this result as robbie l/abnormal. [facility]2013-10-31 23:25:00 Test Item Value Reference Range Interpretation Comments Color CSF (test code Colorless (05/31/2013 N = Color CSF) 18:25:00) [facility]2013-10-31 23:25:00 Test Item Value Reference Range Interpretation Comments Tube Num CSF (test code = Tube Num CSF) 3 1 [facility]2013-10-31 23:25:00 Test Item Value Reference Range Interpretation Comments Supernat CSF (test Colorless (05/31/2013 N code = Supernat CSF) 18:25:00) [facility]2013-10-31 23:25:00 Test Item Value Reference Range Interpretation Comments Clarity CSF (test code = Clear (05/31/2013 N Clarity CSF) 18:25:00) [facility]2013-10-31 23:25:00 Test Item Value Reference Range Interpretation Comments WBC CSF (test code = 28 See_Comment H [Autom ated message] The WBC CSF) system which ge nerated this result transmit richard reference range : <=5. The reference range was not used to interpr et this result as robbie l/abnormal. [facility]2013-10-31 23:25:00 Test Item Value Reference Range Interpretation Comments Glucose CSF (test code = Glucose CSF) 51 45-80 N [facility]2013-10-31 23:25:00 Test Item Value Reference Range Interpretation Comments Segs CSF (test code = 0 See_Comment N [Auto mated message] The Segs CSF) system which ge nerated this result transmit richard reference range : <=6. The reference range was not used to interpr et this result as robbie l/abnormal. [id number] 23:25:00 Test Item Value Reference Range Interpretation Comments Monocyte CSF (test code = Monocyte CSF) 2 15-45 L [id number] 23:25:00 Test Item Value Reference Range Interpretation Comments Lymph CSF (test code = Lymph CSF) 98 40-80 H [id number] 23:25:00 Test Item Value Reference Range Interpretation Comments Tube Num CSF (test code = Tube Num CSF) 1 1 [id number] 23:25:00 Test Item Value Reference Range Interpretation Comments Supernat CSF (test Colorless (05/31/2013 N code = Supernat CSF) 18:25:00) [facility] [id number] 23:25:00 Test Item Value Reference Range Interpretation Comments Clarity CSF (test code = Clear (05/31/2013 N Clarity CSF) 18:25:00) [facility] [id number] 23:25:00 Test Item Value Reference Range Interpretation Comments Color CSF (test code Colorless (05/31/2013 N = Color CSF) 18:25:00) [id number] 23:25:00 Test Item Value Reference Range Interpretation Comments RBC CSF (test code = 21 See_Comment H [Autom ated message] The RBC CSF) system which ge nerated this result transmit richard reference range : <=0. The reference range was not used to interpr et this result as robbie l/abnormal. [id number] 23:25:00 Test Item Value Reference Range Interpretation Comments WBC CSF (test code = 17 See_Comment H [Autom ated message] The WBC CSF) system which ge nerated this result transmit richard reference range : <=5. The reference range was not used to interpr et this result as robbie l/abnormal. [id number] 23:25:00 Test Item Value Reference Range Interpretation Comments Protein CSF (test code = Protein CSF) 34 15-45 N [facility] [id number] 23:25:00 Test Item Value Reference Range Interpretation Comments Lymph CSF (test code = Lymph CSF) 93 40-80 H [facility]2013-10-31 23:25:00 Test Item Value Reference Range Interpretation Comments Monocyte CSF (test code = Monocyte CSF) 6 15-45 L [facility]2013-10-31 23:25:00 Test Item Value Reference Range Interpretation Comments Eos CSF (test code = Eos CSF) 1 [facility]2013-10-31 23:25:00 Test Item Value Reference Range Interpretation Comments Segs CSF (test code = 0 See_Comment N [Auto mated message] The Segs CSF) system which ge nerated this result transmit richard reference range : <=6. The reference range was not used to interpr et this result as robbie l/abnormal. [facility]2013-10-31 23:25:00 Test Item Value Reference Range Interpretation Comments RBC CSF (test code = 16 See_Comment H [Autom ated message] The RBC CSF) system which ge nerated this result transmit richard reference range : <=0. The reference range was not used to interpr et this result as robbie l/abnormal. [facility] [id number] 23:25:00 Test Item Value Reference Range Interpretation Comments Color CSF (test code Colorless (05/31/2013 N = Color CSF) 18:25:00) [facility]2013-10-31 23:25:00 Test Item Value Reference Range Interpretation Comments Tube Num CSF (test code = Tube Num CSF) 3 1 [facility]2013-10-31 23:25:00 Test Item Value Reference Range Interpretation Comments Supernat CSF (test Colorless (05/31/2013 N code = Supernat CSF) 18:25:00) [facility] [id number] 23:25:00 Test Item Value Reference Range Interpretation Comments Clarity CSF (test code = Clear (05/31/2013 N Clarity CSF) 18:25:00) [facility]2013-10-31 23:25:00 Test Item Value Reference Range Interpretation Comments WBC CSF (test code = 28 See_Comment H [Autom ated message] The WBC CSF) system which ge nerated this result transmit richard reference range : <=5. The reference range was not used to interpr et this result as robbie l/abnormal. [facility] [id number] 23:25:00 Test Item Value Reference Range Interpretation Comments Glucose CSF (test code = Glucose CSF) 51 45-80 N [facility]2013-10-31 23:25:00 Test Item Value Reference Range Interpretation Comments Segs CSF (test code = 0 See_Comment N [Auto mated message] The Segs CSF) system which ge nerated this result transmit richard reference range : <=6. The reference range was not used to interpr et this result as robbie l/abnormal. [facility] [id number] 23:25:00 Test Item Value Reference Range Interpretation Comments Monocyte CSF (test code = Monocyte CSF) 2 15-45 L [facility]2013-10-31 23:25:00 Test Item Value Reference Range Interpretation Comments Lymph CSF (test code = Lymph CSF) 98 40-80 H [facility]2013-10-31 23:25:00 Test Item Value Reference Range Interpretation Comments Tube Num CSF (test code = Tube Num CSF) 1 1 [facility]2013-10-31 23:25:00 Test Item Value Reference Range Interpretation Comments Supernat CSF (test Colorless (05/31/2013 N code = Supernat CSF) 18:25:00) [facility]2013-10-31 23:25:00 Test Item Value Reference Range Interpretation Comments Clarity CSF (test code = Clear (05/31/2013 N Clarity CSF) 18:25:00) [facility]2013-10-31 23:25:00 Test Item Value Reference Range Interpretation Comments Color CSF (test code Colorless (05/31/2013 N = Color CSF) 18:25:00) [facility]2013-10-31 23:25:00 Test Item Value Reference Range Interpretation Comments RBC CSF (test code = 21 See_Comment H [Autom ated message] The RBC CSF) system which ge nerated this result transmit richard reference range : <=0. The reference range was not used to interpr et this result as robbie l/abnormal. [facility] LVVBXQ8279-99-27 23:25:00 Test Item Value Reference Range Interpretation Comments WBC CSF (test code = 17 See_Comment H [Autom ated message] The WBC CSF) system which ge nerated this result transmit richard reference range : <=5. The reference range was not used to interpr et this result as robbie l/abnormal. [facility]IpngwguLCZEOZPCB3987-74-63 21:00:55 Test Item Value Reference Range Interpretation Comments AGAP (test code = AGAP) 13.9 10.0-20.0 N [facility] RenaissanceXfsaaupBDICNFIGE4107-20-46 21:00:55 Test Item Value Reference Range Interpretation Comments eGFR (test code = eGFR) 122 [facility] RenaissanceNcaelvpKGKTZDDZG0890-37-93 21:00:55 Test Item Value Reference Range Interpretation Comments CO2 (test code = CO2) 28 24-32 N [facility] RenaissanceLgdxvzcXJQZNNUKB2552-68-03 21:00:55 Test Item Value Reference Range Interpretation Comments Calcium Lvl (test code = Calcium Lvl) 9.5 8.5-10.5 N [facility] RenaissanceJtagukoVSAHWYSLV6679-19-30 21:00:55 Test Item Value Reference Range Interpretation Comments Sodium Lvl (test code = Sodium Lvl) 139 135-145 N [facility] RenaissanceQbmwzniKRTSCMAWA9537-98-56 21:00:55 Test Item Value Reference Range Interpretation Comments Potassium Lvl (test code = Potassium 3.9 3.5-5.1 N Lvl) [facility] RenaissanceIlydbysZWZIHMZZX9187-27-36 21:00:55 Test Item Value Reference Range Interpretation Comments Chloride Lvl (test code = Chloride Lvl) 101 95-109 N [facility] RenaissanceYeumtbfBHLHLKGPQ3882-19-29 21:00:55 Test Item Value Reference Range Interpretation Comments Creatinine Lvl (test code = Creatinine 0.7 0.5-1.4 N Lvl) [facility] RenaissanceVgpfmrkQQQXNZKFR3395-86-59 21:00:55 Test Item Value Reference Range Interpretation Comments Glucose Lvl (test code = Glucose Lvl) 109 70-99 H [facility] RenaissanceVjbtwgqFHZIGDHPP2659-52-90 21:00:55 Test Item Value Reference Range Interpretation Comments BUN (test code = BUN) 13 7-22 N [facility] RenaissanceVxefrajGYMNAYKKJ3946-26-08 21:00:55 Test Item Value Reference Range Interpretation Comments AGAP (test code = AGAP) 13.9 10.0-20.0 N [facility] RenaissanceZzdvaldTYNMOFJVO9007-65-25 21:00:55 Test Item Value Reference Range Interpretation Comments eGFR (test code = eGFR) 122 [facility] RenaissanceWkhwldtTMVCITBVW6079-59-76 21:00:55 Test Item Value Reference Range Interpretation Comments CO2 (test code = CO2) 28 24-32 N [facility] RenaissanceEczesxkYDCNMXRLF0426-53-69 21:00:55 Test Item Value Reference Range Interpretation Comments Calcium Lvl (test code = Calcium Lvl) 9.5 8.5-10.5 N [facility] RenaissanceCubzohzWQDYHKWVI5749-93-54 21:00:55 Test Item Value Reference Range Interpretation Comments Sodium Lvl (test code = Sodium Lvl) 139 135-145 N [facility] RenaissanceMmbzwwwZCOPKEICN6694-40-57 21:00:55 Test Item Value Reference Range Interpretation Comments Potassium Lvl (test code = Potassium 3.9 3.5-5.1 N Lvl) [facility] RenaissanceYhaiptvJSFDHXIKV4176-43-23 21:00:55 Test Item Value Reference Range Interpretation Comments Chloride Lvl (test code = Chloride Lvl) 101 95-109 N [facility] RenaissanceUdqxkrvJIBKJETSC7602-66-37 21:00:55 Test Item Value Reference Range Interpretation Comments Creatinine Lvl (test code = Creatinine 0.7 0.5-1.4 N Lvl) [facility] RenaissanceArhdpxgCPAFPVHHG0438-36-75 21:00:55 Test Item Value Reference Range Interpretation Comments Glucose Lvl (test code = Glucose Lvl) 109 70-99 H [facility] RenaissanceFpjalnkEBBROYGVZ2244-89-09 21:00:55 Test Item Value Reference Range Interpretation Comments BUN (test code = BUN) 13 7-22 N [facility] RenaissanceXiukcmiEEBGUVFEP3000-50-76 21:00:55 Test Item Value Reference Range Interpretation Comments AGAP (test code = AGAP) 13.9 10.0-20.0 N [facility] RenaissanceBjjgphnCITOUVMFV3478-83-00 21:00:55 Test Item Value Reference Range Interpretation Comments eGFR (test code = eGFR) 122 [facility] RenaissanceFisakilGUYSJVRES3985-10-60 21:00:55 Test Item Value Reference Range Interpretation Comments CO2 (test code = CO2) 28 24-32 N [facility] RenaissanceKzsaxxzCUITAKKFK4051-88-55 21:00:55 Test Item Value Reference Range Interpretation Comments Calcium Lvl (test code = Calcium Lvl) 9.5 8.5-10.5 N [facility] RenaissanceKmxofuiNXMZAVIOB0933-43-94 21:00:55 Test Item Value Reference Range Interpretation Comments Sodium Lvl (test code = Sodium Lvl) 139 135-145 N [facility] RenaissanceZtzdhvfFOCDYBWFL3793-30-92 21:00:55 Test Item Value Reference Range Interpretation Comments Potassium Lvl (test code = Potassium 3.9 3.5-5.1 N Lvl) [facility] RenaissanceGxrixbiCIANLJRMV2841-51-84 21:00:55 Test Item Value Reference Range Interpretation Comments Chloride Lvl (test code = Chloride Lvl) 101 95-109 N [facility] RenaissanceIkaugakJGAMBDLJT9985-92-40 21:00:55 Test Item Value Reference Range Interpretation Comments Creatinine Lvl (test code = Creatinine 0.7 0.5-1.4 N Lvl) [facility] RenaissanceWshmxkhOPSPKGIRJ4712-43-74 21:00:55 Test Item Value Reference Range Interpretation Comments Glucose Lvl (test code = Glucose Lvl) 109 70-99 H [facility] RenaissanceQzhmbbnLMFEVGHSV6082-43-59 21:00:55 Test Item Value Reference Range Interpretation Comments BUN (test code = BUN) 13 7-22 N [facility] CenterJusmadoTSRQVHJNYY6372-94-61 21:00:17 Test Item Value Reference Range Interpretation Comments Hgb (test code = Hgb) 12.6 12.0-16.0 N [facility] CenterAaemhblAQGDNFYHAE2528-99-31 21:00:17 Test Item Value Reference Range Interpretation Comments WBC X 10x3 (test code = WBC X 10x3) 10.2 3.7-10.4 N [facility] CenterUzrgjqbRAQLOVBQTE1572-28-86 21:00:17 Test Item Value Reference Range Interpretation Comments RBC X 10x6 (test code = RBC X 10x6) 4.28 4.20-5.40 N [facility] CenterPyuzhxlSNFNDSQAPU1362-58-54 21:00:17 Test Item Value Reference Range Interpretation Comments Hct (test code = Hct) 38.3 36.0-48.0 N [facility] CenterGkkizogLPVXLMESLI0598-43-04 21:00:17 Test Item Value Reference Range Interpretation Comments MCH (test code = MCH) 29.5 pg 27.0-31.0 N [facility] CenterTvrpgubKGTHKQGKGA1489-98-92 21:00:17 Test Item Value Reference Range Interpretation Comments MCV (test code = MCV) 89.4 81.0-99.0 N [facility] CenterRpiqqduMODWMRSFWR8969-45-93 21:00:17 Test Item Value Reference Range Interpretation Comments MCHC (test code = MCHC) 32.9 32.0-36.0 N [facility] CenterKyilccfTKDTPNPNUF6444-65-15 21:00:17 Test Item Value Reference Range Interpretation Comments RDW (test code = RDW) 12.2 11.5-14.5 N [facility] CenterUjcbkixBLRVENOYMT6591-04-61 21:00:17 Test Item Value Reference Range Interpretation Comments Platelet (test code = Platelet) 350 133-450 N [facility] CenterMwhwzqzPSIZJQGFTA7596-42-62 21:00:17 Test Item Value Reference Range Interpretation Comments MPV (test code = MPV) 7.8 7.4-10.4 N [facility] CenterLhnfecaCWUSLYTRES5380-76-12 21:00:17 Test Item Value Reference Range Interpretation Comments Atypical Lymphs (test code = Atypical 0.0 N Lymphs) [facility] CenterWwgvzakFNYISLTLUT1976-88-14 21:00:17 Test Item Value Reference Range Interpretation Comments Basophils (test code = 1.0 See_Comment N [Aut omated message] The Basophils) system which ge nerated this result tra nsmitted reference range : <=1.0. The reference r joan was not used to int erpret this result as normal/abnormal . [facility] CenterQkzewqaHHZXTSTIOT6764-15-15 21:00:17 Test Item Value Reference Range Interpretation Comments Myelocytes (test code = Myelocytes) 1.0 H [facility] CenterZcwjbfmYBWQSNKNFP4220-49-43 21:00:17 Test Item Value Reference Range Interpretation Comments Segs (test code = Segs) 73.0 45.0-75.0 N [facility] CenterNxtevaqEXZLRKKBUZ6778-72-67 21:00:17 Test Item Value Reference Range Interpretation Comments Bands (test code = 1.0 See_Comment N [Automat ed message] The Bands) system which ge nerated this result transmit richard reference range : <=11.0. The reference r joan was not used to interpr et this result as robbie l/abnormal. [facility] CenterJzhwolgBBCQAIZYLT3921-32-51 21:00:17 Test Item Value Reference Range Interpretation Comments Monocytes (test code = Monocytes) 6.0 2.0-12.0 N [facility] CenterJlkxyzrMQGBVMIYNN4671-22-93 21:00:17 Test Item Value Reference Range Interpretation Comments Lymphocytes (test code = Lymphocytes) 18.0 20.0-40.0 L [facility] CenterMryrrplYXKTXXPBQE4361-52-01 21:00:17 Test Item Value Reference Range Interpretation Comments Basophils # (test code 0.1 See_Comment N [Aut omated message] The = Basophils #) system which generated this result tra nsmitted reference range : <=0.2. The reference r joan was not used to int erpret this result as normal/abnormal . [facility] CenterSanwzboVQOGGUUUCI7258-55-58 21:00:17 Test Item Value Reference Range Interpretation Comments Monocytes # (test code 0.6 See_Comment N [Aut omated message] The = Monocytes #) system which generated this result tra nsmitted reference range : <=0.8. The reference r joan was not used to int erpret this result as normal/abnormal . [facility] CenterHcegpraSNSMDSGSSB4051-68-89 21:00:17 Test Item Value Reference Range Interpretation Comments Plt Morph (test code = Normal (05/31/2013 N Plt Morph) 16:00:17) [facility] CenterGbkcuczCNWBBWFDWO4476-42-94 21:00:17 Test Item Value Reference Range Interpretation Comments RBC Morph (test code = Normal (05/31/2013 N RBC Morph) 16:00:17) [facility] CenterTvacnvbOILXIFZKDO3775-37-93 21:00:17 Test Item Value Reference Range Interpretation Comments Segs-Bands # (test code = Segs-Bands #) 7.5 1.5-8.1 N [facility] CenterVrxypejSQQRTGWPZX9072-03-38 21:00:17 Test Item Value Reference Range Interpretation Comments Lymphocytes # (test code = Lymphocytes 1.8 1.0-5.5 N #) [facility] CenterQcmrqfaQDOTUJECYF5101-21-28 21:00:17 Test Item Value Reference Range Interpretation Comments Hgb (test code = Hgb) 12.6 12.0-16.0 N [facility] CenterFazjnzrDBFNVOHWOH3452-99-81 21:00:17 Test Item Value Reference Range Interpretation Comments WBC X 10x3 (test code = WBC X 10x3) 10.2 3.7-10.4 N [facility] CenterEbonthwOXURBATBOM4398-00-72 21:00:17 Test Item Value Reference Range Interpretation Comments RBC X 10x6 (test code = RBC X 10x6) 4.28 4.20-5.40 N [facility] CenterOlwmnmcAPTNAHLVOK4832-20-79 21:00:17 Test Item Value Reference Range Interpretation Comments Hct (test code = Hct) 38.3 36.0-48.0 N [facility] CenterHxkrxsiXVQBFYCWPK7406-59-14 21:00:17 Test Item Value Reference Range Interpretation Comments MCH (test code = MCH) 29.5 pg 27.0-31.0 N [facility] CenterXwluebyJTBOGAPMKM0581-30-55 21:00:17 Test Item Value Reference Range Interpretation Comments MCV (test code = MCV) 89.4 81.0-99.0 N [facility] CenterTnjpqykGXWAVDMOCI0967-89-79 21:00:17 Test Item Value Reference Range Interpretation Comments MCHC (test code = MCHC) 32.9 32.0-36.0 N [facility] CenterMgdwddiJCXTRFIWHG0907-67-86 21:00:17 Test Item Value Reference Range Interpretation Comments RDW (test code = RDW) 12.2 11.5-14.5 N [facility] CenterHdtemglJCKWIYZVAK5314-86-40 21:00:17 Test Item Value Reference Range Interpretation Comments Platelet (test code = Platelet) 350 133-450 N [facility] CenterUoaqyywPPEISZUVDI5855-58-06 21:00:17 Test Item Value Reference Range Interpretation Comments MPV (test code = MPV) 7.8 7.4-10.4 N [facility] CenterMobtvocIOUMDAURBO8870-92-09 21:00:17 Test Item Value Reference Range Interpretation Comments Atypical Lymphs (test code = Atypical 0.0 N Lymphs) [facility] CenterYzqepupKNKIGKQZQZ8463-79-39 21:00:17 Test Item Value Reference Range Interpretation Comments Basophils (test code = 1.0 See_Comment N [Aut omated message] The Basophils) system which ge nerated this result tra nsmitted reference range : <=1.0. The reference r joan was not used to int erpret this result as normal/abnormal . [facility] CenterJfvimtpPYYHDKGAEI2108-71-19 21:00:17 Test Item Value Reference Range Interpretation Comments Myelocytes (test code = Myelocytes) 1.0 H [facility] CenterQfakeskHPNLVZYXYL5113-80-91 21:00:17 Test Item Value Reference Range Interpretation Comments Segs (test code = Segs) 73.0 45.0-75.0 N [facility] CenterWikfxrhHNOJORNONJ7299-10-60 21:00:17 Test Item Value Reference Range Interpretation Comments Bands (test code = 1.0 See_Comment N [Automat ed message] The Bands) system which ge nerated this result transmit richard reference range : <=11.0. The reference r joan was not used to interpr et this result as robbie l/abnormal. [facility] CenterJfjofxkMKGVOXGVKJ1314-71-22 21:00:17 Test Item Value Reference Range Interpretation Comments Monocytes (test code = Monocytes) 6.0 2.0-12.0 N [facility] CenterDndyjqkDXQAQSMQPY9137-82-48 21:00:17 Test Item Value Reference Range Interpretation Comments Lymphocytes (test code = Lymphocytes) 18.0 20.0-40.0 L [facility] CenterYystrxqOGQYRFCGFN6182-19-23 21:00:17 Test Item Value Reference Range Interpretation Comments Basophils # (test code 0.1 See_Comment N [Aut omated message] The = Basophils #) system which generated this result tra nsmitted reference range : <=0.2. The reference r joan was not used to int erpret this result as normal/abnormal . [facility] CenterScrwckySTJMMMSXPM8938-37-93 21:00:17 Test Item Value Reference Range Interpretation Comments Monocytes # (test code 0.6 See_Comment N [Aut omated message] The = Monocytes #) system which generated this result tra nsmitted reference range : <=0.8. The reference r joan was not used to int erpret this result as normal/abnormal . [facility] CenterEbfakjpYKWRCLUDQW8629-52-27 21:00:17 Test Item Value Reference Range Interpretation Comments Plt Morph (test code = Normal (05/31/2013 N Plt Morph) 16:00:17) [facility] CenterJnlihbaOTFZFALQIR1941-34-53 21:00:17 Test Item Value Reference Range Interpretation Comments RBC Morph (test code = Normal (05/31/2013 N RBC Morph) 16:00:17) [facility] CenterVdqgirkZEAUZPVJYS9593-62-56 21:00:17 Test Item Value Reference Range Interpretation Comments Segs-Bands # (test code = Segs-Bands #) 7.5 1.5-8.1 N [facility] CenterQvwmmadWWBUIHHXHW2609-36-93 21:00:17 Test Item Value Reference Range Interpretation Comments Lymphocytes # (test code = Lymphocytes 1.8 1.0-5.5 N #) [facility] CenterDdiupdgNKBWOCSOKR2437-75-70 21:00:17 Test Item Value Reference Range Interpretation Comments Hgb (test code = Hgb) 12.6 12.0-16.0 N [facility] CenterBolhivyEKWSEFYXFK6371-76-28 21:00:17 Test Item Value Reference Range Interpretation Comments WBC X 10x3 (test code = WBC X 10x3) 10.2 3.7-10.4 N [facility] CenterLpgxdidTVMVXIYNRB2178-88-44 21:00:17 Test Item Value Reference Range Interpretation Comments RBC X 10x6 (test code = RBC X 10x6) 4.28 4.20-5.40 N [facility] CenterKawovaiSYARHXBNNU7464-19-44 21:00:17 Test Item Value Reference Range Interpretation Comments Hct (test code = Hct) 38.3 36.0-48.0 N [facility] CenterWuavzitNZIZTEMXMT8431-30-29 21:00:17 Test Item Value Reference Range Interpretation Comments MCH (test code = MCH) 29.5 pg 27.0-31.0 N [facility] CenterVskdobhYNZEWTNEFL3547-52-64 21:00:17 Test Item Value Reference Range Interpretation Comments MCV (test code = MCV) 89.4 81.0-99.0 N [facility] CenterTyohzvrEYECSZZUJN6102-25-92 21:00:17 Test Item Value Reference Range Interpretation Comments MCHC (test code = MCHC) 32.9 32.0-36.0 N [facility] CenterDnuadngGCAPOVEFGP8484-74-03 21:00:17 Test Item Value Reference Range Interpretation Comments RDW (test code = RDW) 12.2 11.5-14.5 N [facility] CenterGcmyecgEILMGFLZDL9338-94-84 21:00:17 Test Item Value Reference Range Interpretation Comments Platelet (test code = Platelet) 350 133-450 N [facility] CenterUoftbthCVQAKDYMKJ8083-11-46 21:00:17 Test Item Value Reference Range Interpretation Comments MPV (test code = MPV) 7.8 7.4-10.4 N [facility] CenterWrvzpkaATMFHBQHDA5417-45-46 21:00:17 Test Item Value Reference Range Interpretation Comments Atypical Lymphs (test code = Atypical 0.0 N Lymphs) [facility] CenterBysxyyzYDUKMPNUQU8694-47-97 21:00:17 Test Item Value Reference Range Interpretation Comments Basophils (test code = 1.0 See_Comment N [Aut omated message] The Basophils) system which ge nerated this result tra nsmitted reference range : <=1.0. The reference r joan was not used to int erpret this result as normal/abnormal . [facility] CenterTeeysqwIPVHKJAMBO9166-56-35 21:00:17 Test Item Value Reference Range Interpretation Comments Myelocytes (test code = Myelocytes) 1.0 H [facility] CenterAgysqniFFQLGYCWBA3295-49-39 21:00:17 Test Item Value Reference Range Interpretation Comments Segs (test code = Segs) 73.0 45.0-75.0 N [facility] CenterTwlifdrWFICRHHUOH2402-34-99 21:00:17 Test Item Value Reference Range Interpretation Comments Bands (test code = 1.0 See_Comment N [Automat ed message] The Bands) system which ge nerated this result transmit richard reference range : <=11.0. The reference r joan was not used to interpr et this result as robbie l/abnormal. [facility] CenterEazboyfZBUXOOXCNQ3310-64-13 21:00:17 Test Item Value Reference Range Interpretation Comments Monocytes (test code = Monocytes) 6.0 2.0-12.0 N [facility] CenterQikezniRZXACJZYPU4481-62-27 21:00:17 Test Item Value Reference Range Interpretation Comments Lymphocytes (test code = Lymphocytes) 18.0 20.0-40.0 L [facility] CenterLztirhoUIUIYKTAMZ7710-75-15 21:00:17 Test Item Value Reference Range Interpretation Comments Basophils # (test code 0.1 See_Comment N [Aut omated message] The = Basophils #) system which generated this result tra nsmitted reference range : <=0.2. The reference r joan was not used to int erpret this result as normal/abnormal . [facility] CenterSslfvkuHJMGJZAGMY9878-76-52 21:00:17 Test Item Value Reference Range Interpretation Comments Monocytes # (test code 0.6 See_Comment N [Aut omated message] The = Monocytes #) system which generated this result tra nsmitted reference range : <=0.8. The reference r joan was not used to int erpret this result as normal/abnormal . [facility] CenterIyzbuacYQVBTZZXBF5670-09-22 21:00:17 Test Item Value Reference Range Interpretation Comments Plt Morph (test code = Normal (05/31/2013 N Plt Morph) 16:00:17) [facility] CenterUqdkfyzJWOESCCGHV2900-51-96 21:00:17 Test Item Value Reference Range Interpretation Comments RBC Morph (test code = Normal (05/31/2013 N RBC Morph) 16:00:17) [facility] CenterNvexokvPMMTOKZBCP4913-23-38 21:00:17 Test Item Value Reference Range Interpretation Comments Segs-Bands # (test code = Segs-Bands #) 7.5 1.5-8.1 N [facility] CenterArdjjqyESHHELLSNM3940-15-41 21:00:17 Test Item Value Reference Range Interpretation Comments Lymphocytes # (test code = Lymphocytes 1.8 1.0-5.5 N #) [facility] GLUCOSE LXTNWTO7947-16-52 22:20:00 Test Item Value Reference Range Interpretation Comments Glucose POC (test code = Glucose POC) 139 70-99 H [facility] GLUCOSE NXMMPYG2847-01-97 22:20:00 Test Item Value Reference Range Interpretation Comments Glucose POC (test code = Glucose POC) 139 70-99 H [facility] GLUCOSE YAAEHBK2962-40-88 22:20:00 Test Item Value Reference Range Interpretation Comments Glucose POC (test code = Glucose POC) 139 70-99 H [facility] RenaissanceGwxeikrDXOGWXEZR5540-40-99 10:41:00 Test Item Value Reference Range Interpretation Comments Magnesium Lvl (test code = Magnesium 1.7 1.8-2.4 L Lvl) [facility] RenaissanceSmgzzbcYEDLOMAAR6397-92-17 10:41:00 Test Item Value Reference Range Interpretation Comments AGAP (test code = AGAP) 15.1 10.0-20.0 N [facility] RenaissanceUghrcdoIOIOQHYZJ6662-02-25 10:41:00 Test Item Value Reference Range Interpretation Comments eGFR (test code = eGFR) 90 [facility] RenaissanceAuiurdgNPOIWDYMU7746-72-15 10:41:00 Test Item Value Reference Range Interpretation Comments Glucose Lvl (test code = Glucose Lvl) 114 70-99 H [facility] RenaissanceEnsfvxzKEDAVBLBQ9814-98-31 10:41:00 Test Item Value Reference Range Interpretation Comments CO2 (test code = CO2) 25 24-32 N [facility] RenaissanceEqkxlhnNXYOGPXGH2034-72-23 10:41:00 Test Item Value Reference Range Interpretation Comments Calcium Lvl (test code = Calcium Lvl) 8.7 8.5-10.5 N [facility] RenaissancePamevlbVGWAJPBXS6080-72-21 10:41:00 Test Item Value Reference Range Interpretation Comments Potassium Lvl (test code = Potassium 4.1 3.5-5.1 N Lvl) [facility] RenaissanceCjekkbmBGCWLIDCM4136-98-48 10:41:00 Test Item Value Reference Range Interpretation Comments Chloride Lvl (test code = Chloride Lvl) 108 95-109 N [facility] RenaissanceLezynhoUBJMOKNXH6201-82-99 10:41:00 Test Item Value Reference Range Interpretation Comments Sodium Lvl (test code = Sodium Lvl) 144 135-145 N [facility] RenaissanceFscqljoMPZNJWXFM3001-74-92 10:41:00 Test Item Value Reference Range Interpretation Comments Creatinine Lvl (test code = Creatinine 0.9 0.5-1.4 N Lvl) [facility] RenaissanceCfcuzncPINBAVRLU0990-34-46 10:41:00 Test Item Value Reference Range Interpretation Comments BUN (test code = BUN) 13 7-22 N [facility] RenaissanceNekthtdPTZJOXMHH9281-15-32 10:41:00 Test Item Value Reference Range Interpretation Comments Phosphorus (test code = Phosphorus) 2.7 2.5-4.5 N [facility] RenaissanceGpctyurQIPUXEXRB5186-63-37 10:41:00 Test Item Value Reference Range Interpretation Comments Ca Ion WB (test code = Ca Ion WB) 1.09 1.05-1.25 N [facility] RenaissanceQwwlexqUTZILEXNK1359-13-47 10:41:00 Test Item Value Reference Range Interpretation Comments Ca Norm WB (test code = Ca Norm WB) 1.11 1.05-1.25 N [facility] CenterYiusoinWWPUOQCKVK2585-54-53 10:41:00 Test Item Value Reference Range Interpretation Comments MPV (test code = MPV) 9.3 7.4-10.4 N [facility] CenterFgksjnfVIGKYUNNLF3565-53-95 10:41:00 Test Item Value Reference Range Interpretation Comments Platelet (test code = Platelet) 214 133-450 N [facility] CenterYoebgpdIOFQGZTUQV8577-91-89 10:41:00 Test Item Value Reference Range Interpretation Comments RDW (test code = RDW) 12.2 11.5-14.5 N [facility] CenterTwtivdoDABUGFRLJL8792-83-49 10:41:00 Test Item Value Reference Range Interpretation Comments Hct (test code = Hct) 30.8 36.0-48.0 L [facility] CenterPcjelxjCDKVPPLVDU9374-45-85 10:41:00 Test Item Value Reference Range Interpretation Comments MCH (test code = MCH) 30.7 pg 27.0-31.0 N [facility] CenterXppsurfLVCZEWQAGQ4393-33-67 10:41:00 Test Item Value Reference Range Interpretation Comments MCV (test code = MCV) 90.8 81.0-99.0 N [facility] CenterIqxnzzvLPOQYDEPBK1133-20-29 10:41:00 Test Item Value Reference Range Interpretation Comments MCHC (test code = MCHC) 33.9 32.0-36.0 N [facility] CenterWysrrbkUZBFAEEAUS2904-12-32 10:41:00 Test Item Value Reference Range Interpretation Comments WBC X 10x3 (test code = WBC X 10x3) 17.7 3.7-10.4 H [facility] CenterEqebaeaBLUIVVPRSR9999-29-00 10:41:00 Test Item Value Reference Range Interpretation Comments Hgb (test code = Hgb) 10.4 12.0-16.0 L [facility] CenterUcnfivrVFUDLWPESX1497-64-90 10:41:00 Test Item Value Reference Range Interpretation Comments RBC X 10x6 (test code = RBC X 10x6) 3.39 4.20-5.40 L [facility] CenterSvizdvnLOONMMSJMD4103-67-45 10:41:00 Test Item Value Reference Range Interpretation Comments Segs-Bands # (test code = Segs-Bands #) 15.4 1.5-8.1 H [facility] CenterZxflijvETYJMQHELF8720-84-67 10:41:00 Test Item Value Reference Range Interpretation Comments Lymphocytes # (test code = Lymphocytes 1.5 1.0-5.5 N #) [facility] CenterWlhavrlVKTMOLWKUN1483-41-66 10:41:00 Test Item Value Reference Range Interpretation Comments Monocytes # (test code 0.7 See_Comment N [Aut omated message] The = Monocytes #) system which generated this result tra nsmitted reference range : <=0.8. The reference r joan was not used to int erpret this result as normal/abnormal . [facility] CenterZkgmxzhJHNAUJJMRH1557-20-14 10:41:00 Test Item Value Reference Range Interpretation Comments Segs (test code = Segs) 87.0 45.0-75.0 H [facility] CenterAdcmtngMIOMHZDBYQ3462-86-01 10:41:00 Test Item Value Reference Range Interpretation Comments Basophils (test code = 0.1 See_Comment N [Aut omated message] The Basophils) system which ge nerated this result tra nsmitted reference range : <=1.0. The reference r joan was not used to int erpret this result as normal/abnormal . [facility] CenterIjuaxmiRXWLYSNWQD3832-20-95 10:41:00 Test Item Value Reference Range Interpretation Comments Monocytes (test code = Monocytes) 4.2 2.0-12.0 N [facility] CenterKhzcbofJPTUEZVBQP1335-31-01 10:41:00 Test Item Value Reference Range Interpretation Comments Lymphocytes (test code = Lymphocytes) 8.7 20.0-40.0 L [facility]QtwfjdtZNPTUIGKO8277-47-05 10:41:00 Test Item Value Reference Range Interpretation Comments Magnesium Lvl (test code = Magnesium 1.7 1.8-2.4 L Lvl) [facility] RenaissanceAibyvsqXTTQNZTHB5886-10-54 10:41:00 Test Item Value Reference Range Interpretation Comments AGAP (test code = AGAP) 15.1 10.0-20.0 N [facility] RenaissanceGvjexyeWQEKCJDOA8779-17-50 10:41:00 Test Item Value Reference Range Interpretation Comments eGFR (test code = eGFR) 90 [facility] RenaissanceNpoibabQDKYXTTKU1038-01-29 10:41:00 Test Item Value Reference Range Interpretation Comments Glucose Lvl (test code = Glucose Lvl) 114 70-99 H [facility] RenaissanceEcdpeprGOALQPHKE8727-42-79 10:41:00 Test Item Value Reference Range Interpretation Comments CO2 (test code = CO2) 25 24-32 N [facility] RenaissanceGnzomisACTZZXKWN1674-10-12 10:41:00 Test Item Value Reference Range Interpretation Comments Calcium Lvl (test code = Calcium Lvl) 8.7 8.5-10.5 N [facility] RenaissanceBatgmjoPGTGILGVC0925-00-15 10:41:00 Test Item Value Reference Range Interpretation Comments Potassium Lvl (test code = Potassium 4.1 3.5-5.1 N Lvl) [facility] RenaissanceHbpgfksXYLAQYXXX0271-70-23 10:41:00 Test Item Value Reference Range Interpretation Comments Chloride Lvl (test code = Chloride Lvl) 108 95-109 N [facility] RenaissanceSuhnzmhSCPDXCMSG7931-20-48 10:41:00 Test Item Value Reference Range Interpretation Comments Sodium Lvl (test code = Sodium Lvl) 144 135-145 N [facility] RenaissanceTcxtjmmYHYOLAQWE9410-11-99 10:41:00 Test Item Value Reference Range Interpretation Comments Creatinine Lvl (test code = Creatinine 0.9 0.5-1.4 N Lvl) [facility] RenaissanceAfiujboOSVXWRAEG5758-93-17 10:41:00 Test Item Value Reference Range Interpretation Comments BUN (test code = BUN) 13 7-22 N [facility] RenaissanceNoovihuWLUVVESCH4697-88-70 10:41:00 Test Item Value Reference Range Interpretation Comments Phosphorus (test code = Phosphorus) 2.7 2.5-4.5 N [facility] RenaissanceVxseyxeHGRMTIZHP0297-75-12 10:41:00 Test Item Value Reference Range Interpretation Comments Ca Ion WB (test code = Ca Ion WB) 1.09 1.05-1.25 N [facility] RenaissanceBwcosqbTBSLOFAJL5853-94-46 10:41:00 Test Item Value Reference Range Interpretation Comments Ca Norm WB (test code = Ca Norm WB) 1.11 1.05-1.25 N [facility] CenterXcqzbpaXHUXZMMENI7183-71-90 10:41:00 Test Item Value Reference Range Interpretation Comments MPV (test code = MPV) 9.3 7.4-10.4 N [facility] CenterBdgrjesLCKBYOFLYX3708-61-57 10:41:00 Test Item Value Reference Range Interpretation Comments Platelet (test code = Platelet) 214 133-450 N [facility] CenterQnuewnvBTKMSOIRMK4405-59-27 10:41:00 Test Item Value Reference Range Interpretation Comments RDW (test code = RDW) 12.2 11.5-14.5 N [facility] CenterOqzlpxqTDDYUSJKJR1772-79-85 10:41:00 Test Item Value Reference Range Interpretation Comments Hct (test code = Hct) 30.8 36.0-48.0 L [facility] CenterOnoaphsCFKBMMDLJD1160-48-89 10:41:00 Test Item Value Reference Range Interpretation Comments MCH (test code = MCH) 30.7 pg 27.0-31.0 N [facility] CenterXchszwdAYRTDQGTGK7702-74-60 10:41:00 Test Item Value Reference Range Interpretation Comments MCV (test code = MCV) 90.8 81.0-99.0 N [facility] CenterXcsmzloHMEEZTCVNW3442-60-56 10:41:00 Test Item Value Reference Range Interpretation Comments MCHC (test code = MCHC) 33.9 32.0-36.0 N [facility] CenterQdyzglwUUSWRDNIII8638-54-50 10:41:00 Test Item Value Reference Range Interpretation Comments WBC X 10x3 (test code = WBC X 10x3) 17.7 3.7-10.4 H [facility] CenterEqgoudsDNJPUMPOIU0112-36-53 10:41:00 Test Item Value Reference Range Interpretation Comments Hgb (test code = Hgb) 10.4 12.0-16.0 L [facility] CenterPqqyzmwOLYSZASPIL7111-72-73 10:41:00 Test Item Value Reference Range Interpretation Comments RBC X 10x6 (test code = RBC X 10x6) 3.39 4.20-5.40 L [facility] CenterHngwgewIICSPXIUOF9838-73-64 10:41:00 Test Item Value Reference Range Interpretation Comments Segs-Bands # (test code = Segs-Bands #) 15.4 1.5-8.1 H [facility] CenterJfguxcfAXCVXZTKOF4460-31-37 10:41:00 Test Item Value Reference Range Interpretation Comments Lymphocytes # (test code = Lymphocytes 1.5 1.0-5.5 N #) [facility] CenterUxtvcjjNMXJVVNIWT5281-05-76 10:41:00 Test Item Value Reference Range Interpretation Comments Monocytes # (test code 0.7 See_Comment N [Aut omated message] The = Monocytes #) system which generated this result tra nsmitted reference range : <=0.8. The reference r joan was not used to int erpret this result as normal/abnormal . [facility] CenterEuipixtQDVLXIAQTN8800-82-25 10:41:00 Test Item Value Reference Range Interpretation Comments Segs (test code = Segs) 87.0 45.0-75.0 H [facility] CenterQvfeucbJYCVJAULRQ5071-72-24 10:41:00 Test Item Value Reference Range Interpretation Comments Basophils (test code = 0.1 See_Comment N [Aut omated message] The Basophils) system which ge nerated this result tra nsmitted reference range : <=1.0. The reference r joan was not used to int erpret this result as normal/abnormal . [facility] CenterTinofanCJDKRWOGNW8808-51-64 10:41:00 Test Item Value Reference Range Interpretation Comments Monocytes (test code = Monocytes) 4.2 2.0-12.0 N [facility] CenterQqfbvuwBVJWSYLSNA7842-70-58 10:41:00 Test Item Value Reference Range Interpretation Comments Lymphocytes (test code = Lymphocytes) 8.7 20.0-40.0 L [facility] RenaissanceNinqbbjTPCHBFDZR6498-59-90 10:41:00 Test Item Value Reference Range Interpretation Comments Magnesium Lvl (test code = Magnesium 1.7 1.8-2.4 L Lvl) [facility] RenaissanceBvwciqjJYQDSADYX8475-68-66 10:41:00 Test Item Value Reference Range Interpretation Comments AGAP (test code = AGAP) 15.1 10.0-20.0 N [facility] RenaissanceGosqvrwTTKXGAKET4581-56-32 10:41:00 Test Item Value Reference Range Interpretation Comments eGFR (test code = eGFR) 90 [facility] RenaissanceOisqynpIFJEJPXOH2517-70-15 10:41:00 Test Item Value Reference Range Interpretation Comments Glucose Lvl (test code = Glucose Lvl) 114 70-99 H [facility] RenaissanceCplsenqNJJZEDURE7107-79-80 10:41:00 Test Item Value Reference Range Interpretation Comments CO2 (test code = CO2) 25 24-32 N [facility] RenaissanceGmlabiaLWGRNNXQJ2132-23-74 10:41:00 Test Item Value Reference Range Interpretation Comments Calcium Lvl (test code = Calcium Lvl) 8.7 8.5-10.5 N [facility] RenaissanceJtsywyxMRPPYXCBV7944-15-69 10:41:00 Test Item Value Reference Range Interpretation Comments Potassium Lvl (test code = Potassium 4.1 3.5-5.1 N Lvl) [facility] RenaissanceQwjyxtdFRKDNZNRT1664-22-51 10:41:00 Test Item Value Reference Range Interpretation Comments Chloride Lvl (test code = Chloride Lvl) 108 95-109 N [facility] RenaissanceRusxkvwNTHIEIDOZ3694-85-62 10:41:00 Test Item Value Reference Range Interpretation Comments Sodium Lvl (test code = Sodium Lvl) 144 135-145 N [facility] RenaissanceOxhyotwFOMNSUOWS0416-12-17 10:41:00 Test Item Value Reference Range Interpretation Comments Creatinine Lvl (test code = Creatinine 0.9 0.5-1.4 N Lvl) [facility] RenaissanceUmtaqcfUMDPEDSWY1752-07-69 10:41:00 Test Item Value Reference Range Interpretation Comments BUN (test code = BUN) 13 7-22 N [facility] RenaissanceYpcvxfwGPIFXNMSL1754-96-62 10:41:00 Test Item Value Reference Range Interpretation Comments Phosphorus (test code = Phosphorus) 2.7 2.5-4.5 N [facility] RenaissanceFjehfdjJCZWMLYWY2191-43-57 10:41:00 Test Item Value Reference Range Interpretation Comments Ca Ion WB (test code = Ca Ion WB) 1.09 1.05-1.25 N [facility] RenaissanceLgxmgloQXIALAOLA2080-71-20 10:41:00 Test Item Value Reference Range Interpretation Comments Ca Norm WB (test code = Ca Norm WB) 1.11 1.05-1.25 N [facility] CenterWozmeqjERRQOJUJTB4203-96-81 10:41:00 Test Item Value Reference Range Interpretation Comments MPV (test code = MPV) 9.3 7.4-10.4 N [facility] CenterKzwkcuzIUFSTXWOPN0123-35-31 10:41:00 Test Item Value Reference Range Interpretation Comments Platelet (test code = Platelet) 214 133-450 N [facility] CenterUpzdejkPASEHYGIBW6275-77-00 10:41:00 Test Item Value Reference Range Interpretation Comments RDW (test code = RDW) 12.2 11.5-14.5 N [facility] CenterCcajcetXTYRBBDALD4685-15-77 10:41:00 Test Item Value Reference Range Interpretation Comments Hct (test code = Hct) 30.8 36.0-48.0 L [facility] CenterFfsdmnzZSHUJUJOQZ1499-27-34 10:41:00 Test Item Value Reference Range Interpretation Comments MCH (test code = MCH) 30.7 pg 27.0-31.0 N [facility] CenterEfhdbtlNFDWWQHSSO8512-67-59 10:41:00 Test Item Value Reference Range Interpretation Comments MCV (test code = MCV) 90.8 81.0-99.0 N [facility] CenterAmepueqKMTHFSOPPF8131-91-15 10:41:00 Test Item Value Reference Range Interpretation Comments MCHC (test code = MCHC) 33.9 32.0-36.0 N [facility] CenterVtippenREZPFHZJKI6333-06-41 10:41:00 Test Item Value Reference Range Interpretation Comments WBC X 10x3 (test code = WBC X 10x3) 17.7 3.7-10.4 H [facility] CenterNuweynpWKNLLHTJPP2565-75-25 10:41:00 Test Item Value Reference Range Interpretation Comments Hgb (test code = Hgb) 10.4 12.0-16.0 L [facility] CenterTlspmqlDXHZTEWXXN0437-57-32 10:41:00 Test Item Value Reference Range Interpretation Comments RBC X 10x6 (test code = RBC X 10x6) 3.39 4.20-5.40 L [facility] CenterOlmtfitPQTSEADFNT8931-19-61 10:41:00 Test Item Value Reference Range Interpretation Comments Segs-Bands # (test code = Segs-Bands #) 15.4 1.5-8.1 H [facility] CenterZmltkzdUKEDEJCQLR1864-53-92 10:41:00 Test Item Value Reference Range Interpretation Comments Lymphocytes # (test code = Lymphocytes 1.5 1.0-5.5 N #) [facility] CenterNwuipihPKXAEHYZTR6812-49-03 10:41:00 Test Item Value Reference Range Interpretation Comments Monocytes # (test code 0.7 See_Comment N [Aut omated message] The = Monocytes #) system which generated this result tra nsmitted reference range : <=0.8. The reference r joan was not used to int erpret this result as normal/abnormal . [facility] CenterOwoahtjBWXECCJOEA5590-26-60 10:41:00 Test Item Value Reference Range Interpretation Comments Segs (test code = Segs) 87.0 45.0-75.0 H [facility] CenterPopkfpgGMYUVCZXYA1429-53-97 10:41:00 Test Item Value Reference Range Interpretation Comments Basophils (test code = 0.1 See_Comment N [Aut omated message] The Basophils) system which ge nerated this result tra nsmitted reference range : <=1.0. The reference r joan was not used to int erpret this result as normal/abnormal . [facility] CenterUesxaltVXIYBDBBAS4405-52-99 10:41:00 Test Item Value Reference Range Interpretation Comments Monocytes (test code = Monocytes) 4.2 2.0-12.0 N [facility] CenterAkwyygpIAPISBKBKT3726-93-65 10:41:00 Test Item Value Reference Range Interpretation Comments Lymphocytes (test code = Lymphocytes) 8.7 20.0-40.0 L [facility] GLUCOSE FVLVDVS2156-18-61 00:31:00 Test Item Value Reference Range Interpretation Comments Glucose POC (test code = Glucose POC) 136 70-99 H [facility] GLUCOSE RLNBMNV3392-85-99 00:31:00 Test Item Value Reference Range Interpretation Comments Gluc POC Comment 1 (test code = Notify RN/MD Gluc POC Comment 1) [facility] GLUCOSE IAACVMT4211-90-83 00:31:00 Test Item Value Reference Range Interpretation Comments Glucose POC (test code = Glucose POC) 136 70-99 H [facility] GLUCOSE AIJUSXO4376-01-81 00:31:00 Test Item Value Reference Range Interpretation Comments Gluc POC Comment 1 (test code = Notify RN/MD Gluc POC Comment 1) [facility] GLUCOSE PJHRXGP8322-37-46 00:31:00 Test Item Value Reference Range Interpretation Comments Glucose POC (test code = Glucose POC) 136 70-99 H [facility] GLUCOSE PQQAQZJ3575-94-39 00:31:00 Test Item Value Reference Range Interpretation Comments Gluc POC Comment 1 (test code = Notify RN/MD Gluc POC Comment 1) [facility] GLUCOSE YEZAOSU0881-18-70 17:02:00 Test Item Value Reference Range Interpretation Comments Glucose POC (test code = Glucose POC) 130 70-99 H [facility] GLUCOSE EFEFNUA9406-87-70 17:02:00 Test Item Value Reference Range Interpretation Comments Glucose POC (test code = Glucose POC) 130 70-99 H [facility] GLUCOSE YYWBNYF5378-22-87 17:02:00 Test Item Value Reference Range Interpretation Comments Glucose POC (test code = Glucose POC) 130 70-99 H [facility] GLUCOSE LAKMTUF5904-30-61 08:33:00 Test Item Value Reference Range Interpretation Comments Gluc POC Comment 1 (test code = Notify RN/MD Gluc POC Comment 1) [facility] GLUCOSE IHBDNXG0021-01-82 08:33:00 Test Item Value Reference Range Interpretation Comments Gluc POC Comment 1 (test code = Notify RN/MD Gluc POC Comment 1) [facility] GLUCOSE GBZCKTE0280-54-48 08:33:00 Test Item Value Reference Range Interpretation Comments Gluc POC Comment 1 (test code = Notify RN/MD Gluc POC Comment 1) [facility] RenaissanceQpgyhlcLEMOAZPXI5997-79-40 05:50:00 Test Item Value Reference Range Interpretation Comments Magnesium Lvl (test code = Magnesium 1.7 1.8-2.4 L Lvl) [facility] RenaissanceWkdihieYHRZSOIUA0683-69-11 05:50:00 Test Item Value Reference Range Interpretation Comments eGFR (test code = eGFR) 104 [facility] RenaissanceEycaeniHQANSHMMG1942-38-45 05:50:00 Test Item Value Reference Range Interpretation Comments AGAP (test code = AGAP) 17.7 10.0-20.0 N [facility] RenaissanceExlasnjFQMLHQVOI6674-50-77 05:50:00 Test Item Value Reference Range Interpretation Comments Calcium Lvl (test code = Calcium Lvl) 8.1 8.5-10.5 L [facility] RenaissanceHjymoaiZUQRFEXFD2138-40-37 05:50:00 Test Item Value Reference Range Interpretation Comments CO2 (test code = CO2) 23 24-32 L [facility] RenaissanceCmcxzenEJNVCXDES8980-52-70 05:50:00 Test Item Value Reference Range Interpretation Comments Chloride Lvl (test code = Chloride Lvl) 108 95-109 N [facility] RenaissanceMqpqsvcNCWDYRMPS0430-78-28 05:50:00 Test Item Value Reference Range Interpretation Comments Potassium Lvl (test code = Potassium 3.7 3.5-5.1 N Lvl) [facility] RenaissanceCwjuwkdYXBNTKAAL0735-79-49 05:50:00 Test Item Value Reference Range Interpretation Comments Sodium Lvl (test code = Sodium Lvl) 145 135-145 N [facility] RenaissanceHebigplUXJZHUMPE8429-01-94 05:50:00 Test Item Value Reference Range Interpretation Comments Creatinine Lvl (test code = Creatinine 0.8 0.5-1.4 N Lvl) [facility] RenaissanceTfwstzvSJSVYKDOC9967-45-32 05:50:00 Test Item Value Reference Range Interpretation Comments BUN (test code = BUN) 9 7-22 N [facility] RenaissanceOngjralKRVFWDSKU4553-53-70 05:50:00 Test Item Value Reference Range Interpretation Comments Glucose Lvl (test code = Glucose Lvl) 118 70-99 H [facility] RenaissanceSpjydrjRXCHPMTQX0963-23-92 05:50:00 Test Item Value Reference Range Interpretation Comments Phosphorus (test code = Phosphorus) 2.5 2.5-4.5 N [facility] RenaissancePvbzdznFTDZEMSCU7093-13-56 05:50:00 Test Item Value Reference Range Interpretation Comments Ca Ion WB (test code = Ca Ion WB) 1.13 1.05-1.25 N [facility] RenaissanceRjjhnceFWSNYOKZC7115-50-43 05:50:00 Test Item Value Reference Range Interpretation Comments Ca Norm WB (test code = Ca Norm WB) 1.13 1.05-1.25 N [facility]UaeunomVYKOSWKJMK2292-81-35 05:50:00 Test Item Value Reference Range Interpretation Comments Monocytes # (test code 1.4 See_Comment H [Aut omated message] The = Monocytes #) system which generated this result tra nsmitted reference range : <=0.8. The reference r joan was not used to int erpret this result as normal/abnormal . [facility] CenterRvkzfbkYBQIXNVVBM0465-26-74 05:50:00 Test Item Value Reference Range Interpretation Comments Lymphocytes # (test code = Lymphocytes 1.6 1.0-5.5 N #) [facility] CenterAwwrmsfGKFDGLVQUU0104-03-39 05:50:00 Test Item Value Reference Range Interpretation Comments Segs-Bands # (test code = Segs-Bands #) 13.8 1.5-8.1 H [facility] CenterVnajnunUSWDACRNMN5999-03-07 05:50:00 Test Item Value Reference Range Interpretation Comments Basophils (test code = 0.1 See_Comment N [Aut omated message] The Basophils) system which ge nerated this result tra nsmitted reference range : <=1.0. The reference r joan was not used to int erpret this result as normal/abnormal . [facility] CenterPiwfxrrGXQWGXBSIO8006-21-69 05:50:00 Test Item Value Reference Range Interpretation Comments Monocytes (test code = Monocytes) 8.3 2.0-12.0 N [facility] CenterOlwimaaTKLVIHWDAY6084-48-58 05:50:00 Test Item Value Reference Range Interpretation Comments Lymphocytes (test code = Lymphocytes) 9.6 20.0-40.0 L [facility] CenterLrduditJOEFIINFAG0778-80-39 05:50:00 Test Item Value Reference Range Interpretation Comments Segs (test code = Segs) 82.0 45.0-75.0 H [facility] CenterKrllersOSRETGIGUQ1147-64-61 05:50:00 Test Item Value Reference Range Interpretation Comments INR (test code = INR) 1.18 0.85-1.17 H [facility] CenterIwhighqKDFDGNUIGR1386-39-36 05:50:00 Test Item Value Reference Range Interpretation Comments PROTIME (test code = PROTIME) 14.9 s 12.0-14.7 H [facility] CenterNkqaxbyGJHDLYJYXJ7515-53-61 05:50:00 Test Item Value Reference Range Interpretation Comments aPTT (test code = aPTT) 26.1 s 22.9-35.8 N [facility] CenterIkikhlfUZNIAAAGDA1493-21-81 05:50:00 Test Item Value Reference Range Interpretation Comments Hgb (test code = Hgb) 9.8 12.0-16.0 L [facility] CenterHncveazZTEFLYQPBS1888-24-41 05:50:00 Test Item Value Reference Range Interpretation Comments RBC X 10x6 (test code = RBC X 10x6) 3.25 4.20-5.40 L [facility] CenterQndsrahAFSHXVYKFG9621-65-86 05:50:00 Test Item Value Reference Range Interpretation Comments WBC X 10x3 (test code = WBC X 10x3) 16.9 3.7-10.4 H [facility] CenterEhnpnrkZMAROTNUXG9890-72-64 05:50:00 Test Item Value Reference Range Interpretation Comments Hct (test code = Hct) 29.5 36.0-48.0 L [facility] CenterWzzcvqgLEWECPKCTI0177-57-58 05:50:00 Test Item Value Reference Range Interpretation Comments MCV (test code = MCV) 90.8 81.0-99.0 N [facility] CenterRolknpdGNJMCCNKER2806-52-20 05:50:00 Test Item Value Reference Range Interpretation Comments MPV (test code = MPV) 9.2 7.4-10.4 N [facility] CenterVqpwscxSYJSXQBKUR1036-00-43 05:50:00 Test Item Value Reference Range Interpretation Comments RDW (test code = RDW) 11.9 11.5-14.5 N [facility] CenterLeyqsaeOJTSLXRBAH6319-19-01 05:50:00 Test Item Value Reference Range Interpretation Comments MCHC (test code = MCHC) 33.1 32.0-36.0 N [facility] CenterSpxumknDSJPSCDLUV6129-03-17 05:50:00 Test Item Value Reference Range Interpretation Comments Platelet (test code = Platelet) 213 133-450 N [facility] CenterWpzrgstBYZLXYWSAN2748-75-94 05:50:00 Test Item Value Reference Range Interpretation Comments MCH (test code = MCH) 30.0 pg 27.0-31.0 N [facility] RenaissanceBtmszwyGHKMZFJOE0918-02-19 05:50:00 Test Item Value Reference Range Interpretation Comments Magnesium Lvl (test code = Magnesium 1.7 1.8-2.4 L Lvl) [facility] RenaissanceEzwpaqcQZUVIQAYW8337-69-06 05:50:00 Test Item Value Reference Range Interpretation Comments eGFR (test code = eGFR) 104 [facility] RenaissanceVnrcyykYUZEXGRPZ6543-60-39 05:50:00 Test Item Value Reference Range Interpretation Comments AGAP (test code = AGAP) 17.7 10.0-20.0 N [facility] RenaissanceKyobswrBEFOBHZLW7643-89-98 05:50:00 Test Item Value Reference Range Interpretation Comments Calcium Lvl (test code = Calcium Lvl) 8.1 8.5-10.5 L [facility] RenaissanceSxunrpkECPHAWKTN9745-16-53 05:50:00 Test Item Value Reference Range Interpretation Comments CO2 (test code = CO2) 23 24-32 L [facility] RenaissanceVxgeeaaAAXISLHIL1055-42-29 05:50:00 Test Item Value Reference Range Interpretation Comments Chloride Lvl (test code = Chloride Lvl) 108 95-109 N [facility] RenaissanceZxjlqmlKPNMSOQDQ8944-84-33 05:50:00 Test Item Value Reference Range Interpretation Comments Potassium Lvl (test code = Potassium 3.7 3.5-5.1 N Lvl) [facility] RenaissanceIaiddypJUMWCXIKD1411-24-71 05:50:00 Test Item Value Reference Range Interpretation Comments Sodium Lvl (test code = Sodium Lvl) 145 135-145 N [facility] RenaissanceWyfclzeEEGQUHBAI9368-22-11 05:50:00 Test Item Value Reference Range Interpretation Comments Creatinine Lvl (test code = Creatinine 0.8 0.5-1.4 N Lvl) [facility]YdjppzkOTZDSKBHN3888-31-18 05:50:00 Test Item Value Reference Range Interpretation Comments BUN (test code = BUN) 9 7-22 N [facility] RenaissanceDsagankYDGRASQLK3041-97-71 05:50:00 Test Item Value Reference Range Interpretation Comments Glucose Lvl (test code = Glucose Lvl) 118 70-99 H [facility] RenaissancePktqxeqAAYCHMBIW7766-12-42 05:50:00 Test Item Value Reference Range Interpretation Comments Phosphorus (test code = Phosphorus) 2.5 2.5-4.5 N [facility] RenaissanceRpzjuemQIOCUTYUE9782-99-35 05:50:00 Test Item Value Reference Range Interpretation Comments Ca Ion WB (test code = Ca Ion WB) 1.13 1.05-1.25 N [facility] RenaissanceVmumfwuQZOQWWKKJ3694-26-94 05:50:00 Test Item Value Reference Range Interpretation Comments Ca Norm WB (test code = Ca Norm WB) 1.13 1.05-1.25 N [facility]KtzjsezVBPEKKXPBI5633-01-91 05:50:00 Test Item Value Reference Range Interpretation Comments Monocytes # (test code 1.4 See_Comment H [Aut omated message] The = Monocytes #) system which generated this result tra nsmitted reference range : <=0.8. The reference r joan was not used to int erpret this result as normal/abnormal . [facility] CenterUhrosmhJWJZHFBPST3330-51-40 05:50:00 Test Item Value Reference Range Interpretation Comments Lymphocytes # (test code = Lymphocytes 1.6 1.0-5.5 N #) [facility] CenterSmzgwtcQVJOBWFXKS8844-35-47 05:50:00 Test Item Value Reference Range Interpretation Comments Segs-Bands # (test code = Segs-Bands #) 13.8 1.5-8.1 H [facility] CenterFguecofQSUEJLMMGM9930-66-06 05:50:00 Test Item Value Reference Range Interpretation Comments Basophils (test code = 0.1 See_Comment N [Aut omated message] The Basophils) system which ge nerated this result tra nsmitted reference range : <=1.0. The reference r joan was not used to int erpret this result as normal/abnormal . [facility] CenterPgazjesBZLZDFUQVO6987-45-88 05:50:00 Test Item Value Reference Range Interpretation Comments Monocytes (test code = Monocytes) 8.3 2.0-12.0 N [facility] CenterLegzginBAOVGAPBYF2856-71-44 05:50:00 Test Item Value Reference Range Interpretation Comments Lymphocytes (test code = Lymphocytes) 9.6 20.0-40.0 L [facility] CenterCmlyrhuXHYCOWLACC4636-94-05 05:50:00 Test Item Value Reference Range Interpretation Comments Segs (test code = Segs) 82.0 45.0-75.0 H [facility] CenterKrjbojpLKXIIOGYES8210-71-64 05:50:00 Test Item Value Reference Range Interpretation Comments INR (test code = INR) 1.18 0.85-1.17 H [facility] CenterOudtdsnHAMPFSBLPP7500-37-13 05:50:00 Test Item Value Reference Range Interpretation Comments PROTIME (test code = PROTIME) 14.9 s 12.0-14.7 H [facility] CenterIckbzmgDRKUSWFOOD2094-79-04 05:50:00 Test Item Value Reference Range Interpretation Comments aPTT (test code = aPTT) 26.1 s 22.9-35.8 N [facility] CenterKwjwxwiGMEKSOKUOP5395-95-23 05:50:00 Test Item Value Reference Range Interpretation Comments Hgb (test code = Hgb) 9.8 12.0-16.0 L [facility] CenterBpzremgKYTXTWGMVT9306-63-12 05:50:00 Test Item Value Reference Range Interpretation Comments RBC X 10x6 (test code = RBC X 10x6) 3.25 4.20-5.40 L [facility] CenterDjbeixsMABJCMSPJK1448-13-90 05:50:00 Test Item Value Reference Range Interpretation Comments WBC X 10x3 (test code = WBC X 10x3) 16.9 3.7-10.4 H [facility] CenterRldgimuFDQWWEKGLR1821-85-41 05:50:00 Test Item Value Reference Range Interpretation Comments Hct (test code = Hct) 29.5 36.0-48.0 L [facility] CenterYfgzeirAJBJWUZTIH5871-47-86 05:50:00 Test Item Value Reference Range Interpretation Comments MCV (test code = MCV) 90.8 81.0-99.0 N [facility] CenterBedxkxcDETVWSVDDL3017-21-07 05:50:00 Test Item Value Reference Range Interpretation Comments MPV (test code = MPV) 9.2 7.4-10.4 N [facility] CenterNlhqxqnHWFQSBKMBI3449-01-11 05:50:00 Test Item Value Reference Range Interpretation Comments RDW (test code = RDW) 11.9 11.5-14.5 N [facility] CenterAguogmgJQUAGKTDZL1185-57-51 05:50:00 Test Item Value Reference Range Interpretation Comments MCHC (test code = MCHC) 33.1 32.0-36.0 N [facility] CenterVpefgpxHHMWFJRZZR4548-19-21 05:50:00 Test Item Value Reference Range Interpretation Comments Platelet (test code = Platelet) 213 133-450 N [facility] CenterTzpqgjqPCUPEOVFHQ5112-67-60 05:50:00 Test Item Value Reference Range Interpretation Comments MCH (test code = MCH) 30.0 pg 27.0-31.0 N [facility]JjaebzjDWCZQAXYR8223-68-35 05:50:00 Test Item Value Reference Range Interpretation Comments Magnesium Lvl (test code = Magnesium 1.7 1.8-2.4 L Lvl) [facility] RenaissanceGxyswysGWNQTGRCW3453-74-47 05:50:00 Test Item Value Reference Range Interpretation Comments eGFR (test code = eGFR) 104 [facility]IvezxpoORHPLQXMH4097-36-81 05:50:00 Test Item Value Reference Range Interpretation Comments AGAP (test code = AGAP) 17.7 10.0-20.0 N [facility] RenaissanceGbmmcumYKSGOTKKG5002-12-70 05:50:00 Test Item Value Reference Range Interpretation Comments Calcium Lvl (test code = Calcium Lvl) 8.1 8.5-10.5 L [facility] RenaissanceYlaahbaYJZDZBKKR6897-44-04 05:50:00 Test Item Value Reference Range Interpretation Comments CO2 (test code = CO2) 23 24-32 L [facility] RenaissanceHucvqesTUEJONEEQ6301-39-91 05:50:00 Test Item Value Reference Range Interpretation Comments Chloride Lvl (test code = Chloride Lvl) 108 95-109 N [facility] RenaissanceLxieqacUENQHXVNN1628-43-29 05:50:00 Test Item Value Reference Range Interpretation Comments Potassium Lvl (test code = Potassium 3.7 3.5-5.1 N Lvl) [facility]QnljgadIYJTZZLZQ4170-15-59 05:50:00 Test Item Value Reference Range Interpretation Comments Sodium Lvl (test code = Sodium Lvl) 145 135-145 N [facility] RenaissanceNgurxisMXNFXQKNG9074-20-27 05:50:00 Test Item Value Reference Range Interpretation Comments Creatinine Lvl (test code = Creatinine 0.8 0.5-1.4 N Lvl) [facility] RenaissanceCygsgvuFJNYJLIRG2889-49-10 05:50:00 Test Item Value Reference Range Interpretation Comments BUN (test code = BUN) 9 7-22 N [facility] RenaissanceEplcwpeYNTLOQFWO7733-40-90 05:50:00 Test Item Value Reference Range Interpretation Comments Glucose Lvl (test code = Glucose Lvl) 118 70-99 H [facility] RenaissanceVxbbliiVLHURVTNT7127-03-14 05:50:00 Test Item Value Reference Range Interpretation Comments Phosphorus (test code = Phosphorus) 2.5 2.5-4.5 N [facility] RenaissanceTyezunrHKSHUYQZW2476-68-89 05:50:00 Test Item Value Reference Range Interpretation Comments Ca Ion WB (test code = Ca Ion WB) 1.13 1.05-1.25 N [facility] RenaissanceCxvlnciMQBXHYDYM6341-47-24 05:50:00 Test Item Value Reference Range Interpretation Comments Ca Norm WB (test code = Ca Norm WB) 1.13 1.05-1.25 N [facility] CenterKwyjjzgDBQHHWJOTA4494-16-10 05:50:00 Test Item Value Reference Range Interpretation Comments Monocytes # (test code 1.4 See_Comment H [Aut omated message] The = Monocytes #) system which generated this result tra nsmitted reference range : <=0.8. The reference r joan was not used to int erpret this result as normal/abnormal . [facility] CenterFdtiyniJQFKBNOGWY8079-03-46 05:50:00 Test Item Value Reference Range Interpretation Comments Lymphocytes # (test code = Lymphocytes 1.6 1.0-5.5 N #) [facility] CenterLwwizrnJPCRLCFCCE1176-05-70 05:50:00 Test Item Value Reference Range Interpretation Comments Segs-Bands # (test code = Segs-Bands #) 13.8 1.5-8.1 H [facility] CenterQadrpkvYNLRDAYHOZ7320-36-29 05:50:00 Test Item Value Reference Range Interpretation Comments Basophils (test code = 0.1 See_Comment N [Aut omated message] The Basophils) system which ge nerated this result tra nsmitted reference range : <=1.0. The reference r joan was not used to int erpret this result as normal/abnormal . [facility] CenterDqutfchXBMUSJDLOS2792-89-49 05:50:00 Test Item Value Reference Range Interpretation Comments Monocytes (test code = Monocytes) 8.3 2.0-12.0 N [facility] CenterTknxcfdONPRZEMKHW0965-51-54 05:50:00 Test Item Value Reference Range Interpretation Comments Lymphocytes (test code = Lymphocytes) 9.6 20.0-40.0 L [facility] CenterTzfevogYEWGITBNZW0106-53-56 05:50:00 Test Item Value Reference Range Interpretation Comments Segs (test code = Segs) 82.0 45.0-75.0 H [facility] CenterBdsplbkQKDOQOVTEI9709-21-39 05:50:00 Test Item Value Reference Range Interpretation Comments INR (test code = INR) 1.18 0.85-1.17 H [facility] CenterKknukhaFBSQJFMKDJ5146-81-16 05:50:00 Test Item Value Reference Range Interpretation Comments PROTIME (test code = PROTIME) 14.9 s 12.0-14.7 H [facility] CenterVxkuvtrTHDEFPVNMT8509-38-96 05:50:00 Test Item Value Reference Range Interpretation Comments aPTT (test code = aPTT) 26.1 s 22.9-35.8 N [facility] CenterKmzuwyiWXSFDEUOVZ4487-15-66 05:50:00 Test Item Value Reference Range Interpretation Comments Hgb (test code = Hgb) 9.8 12.0-16.0 L [facility] CenterBxzxzioHTPAIECBVG0420-67-23 05:50:00 Test Item Value Reference Range Interpretation Comments RBC X 10x6 (test code = RBC X 10x6) 3.25 4.20-5.40 L [facility] CenterUrvbsbaASPAFTXTET6370-38-30 05:50:00 Test Item Value Reference Range Interpretation Comments WBC X 10x3 (test code = WBC X 10x3) 16.9 3.7-10.4 H [facility] CenterMfjlruwHTKRPZGAYT9486-91-87 05:50:00 Test Item Value Reference Range Interpretation Comments Hct (test code = Hct) 29.5 36.0-48.0 L [facility] CenterGvvnxsmQMPGWPUKJS9809-56-63 05:50:00 Test Item Value Reference Range Interpretation Comments MCV (test code = MCV) 90.8 81.0-99.0 N [facility] CenterMmjlzxeKMVPMBTJHM3688-54-12 05:50:00 Test Item Value Reference Range Interpretation Comments MPV (test code = MPV) 9.2 7.4-10.4 N [facility] CenterRqjihweQDLGATNRJI2685-23-20 05:50:00 Test Item Value Reference Range Interpretation Comments RDW (test code = RDW) 11.9 11.5-14.5 N [facility] CenterUdvwkmeXYRAWHGBAR0661-71-49 05:50:00 Test Item Value Reference Range Interpretation Comments MCHC (test code = MCHC) 33.1 32.0-36.0 N [facility] CenterTaqrpqjRTSQDPUBZC5743-16-80 05:50:00 Test Item Value Reference Range Interpretation Comments Platelet (test code = Platelet) 213 133-450 N [facility] CenterBplelyqTQMNQFCYYJ9659-91-46 05:50:00 Test Item Value Reference Range Interpretation Comments MCH (test code = MCH) 30.0 pg 27.0-31.0 N [facility] GLUCOSE GPBEQIE3824-03-38 04:59:00 Test Item Value Reference Range Interpretation Comments Gluc POC Comment 1 (test code = Notify RN/MD Gluc POC Comment 1) [facility] GLUCOSE QGFHCQA6679-68-75 04:59:00 Test Item Value Reference Range Interpretation Comments Gluc POC Comment 1 (test code = Notify RN/MD Gluc POC Comment 1) [facility] GLUCOSE TQSZACZ7916-27-51 04:59:00 Test Item Value Reference Range Interpretation Comments Gluc POC Comment 1 (test code = Notify RN/MD Gluc POC Comment 1) [facility] UDFQPYDN3281-25-71 21:58:00 Test Item Value Reference Range Interpretation Comments MRSA by PCR (test Negative 1(05/09/2013 N code = MRSA by PCR) 16:58:00) [facility]ZckbrjgOQEHIZHXD8756-27-38 21:58:00 Test Item Value Reference Range Interpretation Comments eGFR (test code = eGFR) 79 [facility] RenaissanceJbkadotDPRARIJPR5108-50-90 21:58:00 Test Item Value Reference Range Interpretation Comments AGAP (test code = AGAP) 20.7 10.0-20.0 H [facility] RenaissanceMjoyteaCBYGLZSYD4577-65-10 21:58:00 Test Item Value Reference Range Interpretation Comments Chloride Lvl (test code = Chloride Lvl) 106 95-109 N [facility] RenaissanceXjrbbpxSIGTYVDWK7206-76-43 21:58:00 Test Item Value Reference Range Interpretation Comments CO2 (test code = CO2) 19 24-32 L [facility] RenaissanceQubbsefSSXTFWHNU2495-19-12 21:58:00 Test Item Value Reference Range Interpretation Comments Calcium Lvl (test code = Calcium Lvl) 8.0 8.5-10.5 L [facility] RenaissanceWmevxrjOOPURQKIR6619-27-51 21:58:00 Test Item Value Reference Range Interpretation Comments BUN (test code = BUN) 12 7-22 N [facility] RenaissanceDanjwbnFMRMDFXZK4128-19-50 21:58:00 Test Item Value Reference Range Interpretation Comments Creatinine Lvl (test code = Creatinine 1.0 0.5-1.4 N Lvl) [facility] RenaissanceRufqxddLIBZNFIZO3668-07-51 21:58:00 Test Item Value Reference Range Interpretation Comments Glucose Lvl (test code = Glucose Lvl) 198 70-99 H [facility] RenaissanceMxrkyzlYNDIWPBOR6814-55-42 21:58:00 Test Item Value Reference Range Interpretation Comments Sodium Lvl (test code = Sodium Lvl) 142 135-145 N [facility] RenaissanceUneqjmbRHAJCMGZX2349-36-86 21:58:00 Test Item Value Reference Range Interpretation Comments Potassium Lvl (test code = Potassium 3.7 3.5-5.1 N Lvl) [facility] RenaissanceModnluyFHMKWGRZN4982-07-05 21:58:00 Test Item Value Reference Range Interpretation Comments Phosphorus (test code = Phosphorus) 3.4 2.5-4.5 N [facility] RenaissanceNvpettcIGPTLEQRW7420-87-28 21:58:00 Test Item Value Reference Range Interpretation Comments Magnesium Lvl (test code = Magnesium 1.4 1.8-2.4 L Lvl) [facility] CenterPdyabewRCSRHOLZZY3078-16-42 21:58:00 Test Item Value Reference Range Interpretation Comments MPV (test code = MPV) 9.6 7.4-10.4 N [facility] CenterOpjengkHVRWATELRE0535-28-99 21:58:00 Test Item Value Reference Range Interpretation Comments MCV (test code = MCV) 91.9 81.0-99.0 N [facility] CenterQffojeeVEVZSNMXNZ1436-09-36 21:58:00 Test Item Value Reference Range Interpretation Comments MCH (test code = MCH) 31.0 pg 27.0-31.0 N [facility] CenterEwpqlysEOIAFUTZJK3357-52-62 21:58:00 Test Item Value Reference Range Interpretation Comments MCHC (test code = MCHC) 33.7 32.0-36.0 N [facility] CenterInnwxrcPVZGZNGDRL9031-70-64 21:58:00 Test Item Value Reference Range Interpretation Comments RDW (test code = RDW) 12.1 11.5-14.5 N [facility] CenterGxhjhblHAACBDYLTC9683-55-09 21:58:00 Test Item Value Reference Range Interpretation Comments Platelet (test code = Platelet) 253 133-450 N [facility] CenterQebugmgAIMKQMLCWU0291-09-66 21:58:00 Test Item Value Reference Range Interpretation Comments WBC X 10x3 (test code = WBC X 10x3) 20.8 3.7-10.4 H [facility] CenterKztgpqzORJNAPMQFH7971-01-39 21:58:00 Test Item Value Reference Range Interpretation Comments RBC X 10x6 (test code = RBC X 10x6) 3.54 4.20-5.40 L [facility] CenterVssjdzxJLUHBOKBJZ3319-64-02 21:58:00 Test Item Value Reference Range Interpretation Comments Hgb (test code = Hgb) 11.0 12.0-16.0 L [facility] CenterHdknrmgKHFSRONFYM4646-19-01 21:58:00 Test Item Value Reference Range Interpretation Comments Hct (test code = Hct) 32.5 36.0-48.0 L [facility] CenterRbislwsCCRWPZPHYV4579-85-43 21:58:00 Test Item Value Reference Range Interpretation Comments Lymphocytes # (test code = Lymphocytes 1.1 1.0-5.5 N #) [facility] CenterOpsxyofGCYPRXXRGY4803-28-68 21:58:00 Test Item Value Reference Range Interpretation Comments Monocytes # (test code 0.3 See_Comment N [Aut omated message] The = Monocytes #) system which generated this result tra nsmitted reference range : <=0.8. The reference r joan was not used to int erpret this result as normal/abnormal . [facility] CenterQdpdmdyMXLBJIFEWJ4995-68-53 21:58:00 Test Item Value Reference Range Interpretation Comments Segs (test code = Segs) 93.0 45.0-75.0 H [facility] CenterWymlmjvLFWAOUORIT6556-46-68 21:58:00 Test Item Value Reference Range Interpretation Comments Lymphocytes (test code = Lymphocytes) 5.3 20.0-40.0 L [facility] CenterZtnomqgGNGDMVOZZM5329-62-20 21:58:00 Test Item Value Reference Range Interpretation Comments Basophils (test code = 0.1 See_Comment N [Aut omated message] The Basophils) system which ge nerated this result tra nsmitted reference range : <=1.0. The reference r joan was not used to int erpret this result as normal/abnormal . [facility] CenterJiujermHNXGCUFXAJ1891-78-35 21:58:00 Test Item Value Reference Range Interpretation Comments Monocytes (test code = Monocytes) 1.6 2.0-12.0 L [facility] CenterPdtpfxdRDZBGYANZU7324-81-81 21:58:00 Test Item Value Reference Range Interpretation Comments Segs-Bands # (test code = Segs-Bands #) 19.3 1.5-8.1 H [facility] - WLCXPGSD8612-02-46 21:58:00 Test Item Value Reference Range Interpretation Comments MRSA by PCR (test Negative 1(05/09/2013 N code = MRSA by PCR) 16:58:00) [facility] HospitalZrmoobvPVSLILOWL2635-61-96 21:58:00 Test Item Value Reference Range Interpretation Comments eGFR (test code = eGFR) 79 [facility]RtdmzhkEULIKEWAS9091-16-12 21:58:00 Test Item Value Reference Range Interpretation Comments AGAP (test code = AGAP) 20.7 10.0-20.0 H [facility] RenaissanceDpdozntIMPGEWVAB3508-76-62 21:58:00 Test Item Value Reference Range Interpretation Comments Chloride Lvl (test code = Chloride Lvl) 106 95-109 N [facility] RenaissanceNrjuczgTYIGHYZGC1819-83-19 21:58:00 Test Item Value Reference Range Interpretation Comments CO2 (test code = CO2) 19 24-32 L [facility] RenaissanceOffauguXXGBARYSJ1580-42-39 21:58:00 Test Item Value Reference Range Interpretation Comments Calcium Lvl (test code = Calcium Lvl) 8.0 8.5-10.5 L [facility] RenaissanceWftyzjqRDHALDECU8858-05-72 21:58:00 Test Item Value Reference Range Interpretation Comments BUN (test code = BUN) 12 7-22 N [facility] RenaissanceMfugfehGPGIYPGYT9704-77-87 21:58:00 Test Item Value Reference Range Interpretation Comments Creatinine Lvl (test code = Creatinine 1.0 0.5-1.4 N Lvl) [facility] RenaissanceVuzunvvTKYADBXEE0906-23-77 21:58:00 Test Item Value Reference Range Interpretation Comments Glucose Lvl (test code = Glucose Lvl) 198 70-99 H [facility] RenaissanceInhuhuuRTWESPVKH6721-35-40 21:58:00 Test Item Value Reference Range Interpretation Comments Sodium Lvl (test code = Sodium Lvl) 142 135-145 N [facility] RenaissanceQrhwpkiOLWYBBVYY2355-29-69 21:58:00 Test Item Value Reference Range Interpretation Comments Potassium Lvl (test code = Potassium 3.7 3.5-5.1 N Lvl) [facility] RenaissanceTwrwuqvJNMJYJJAD7209-08-63 21:58:00 Test Item Value Reference Range Interpretation Comments Phosphorus (test code = Phosphorus) 3.4 2.5-4.5 N [facility] RenaissanceYfohxxbEABCLCIAO2443-26-41 21:58:00 Test Item Value Reference Range Interpretation Comments Magnesium Lvl (test code = Magnesium 1.4 1.8-2.4 L Lvl) [facility] CenterVigqzwdXYQFMXVBAK0562-65-56 21:58:00 Test Item Value Reference Range Interpretation Comments MPV (test code = MPV) 9.6 7.4-10.4 N [facility] CenterHzgbedjTKAKGULMXX6978-54-72 21:58:00 Test Item Value Reference Range Interpretation Comments MCV (test code = MCV) 91.9 81.0-99.0 N [facility] CenterFjqzdxbDUSIYGHAAJ6360-00-28 21:58:00 Test Item Value Reference Range Interpretation Comments MCH (test code = MCH) 31.0 pg 27.0-31.0 N [facility] CenterGhbiatmMESZWJXAXJ5190-26-88 21:58:00 Test Item Value Reference Range Interpretation Comments MCHC (test code = MCHC) 33.7 32.0-36.0 N [facility] CenterJitskflZBLYCPLIXZ3375-91-51 21:58:00 Test Item Value Reference Range Interpretation Comments RDW (test code = RDW) 12.1 11.5-14.5 N [facility] CenterFxavucnUMSXPFFZLG3726-99-12 21:58:00 Test Item Value Reference Range Interpretation Comments Platelet (test code = Platelet) 253 133-450 N [facility] CenterPihykusCMGNPYJAYI7258-03-25 21:58:00 Test Item Value Reference Range Interpretation Comments WBC X 10x3 (test code = WBC X 10x3) 20.8 3.7-10.4 H [facility] CenterQmadsepZTINUMSTTT2920-46-19 21:58:00 Test Item Value Reference Range Interpretation Comments RBC X 10x6 (test code = RBC X 10x6) 3.54 4.20-5.40 L [facility] CenterXutzqloDFHLASNKWW0747-88-59 21:58:00 Test Item Value Reference Range Interpretation Comments Hgb (test code = Hgb) 11.0 12.0-16.0 L [facility] CenterKswszzdCEEDTGEORN9664-13-59 21:58:00 Test Item Value Reference Range Interpretation Comments Hct (test code = Hct) 32.5 36.0-48.0 L [facility] CenterCupsoucOPAEULAUVE8664-99-88 21:58:00 Test Item Value Reference Range Interpretation Comments Lymphocytes # (test code = Lymphocytes 1.1 1.0-5.5 N #) [facility] CenterSqztbqtWAGIKUOMDT2741-27-68 21:58:00 Test Item Value Reference Range Interpretation Comments Monocytes # (test code 0.3 See_Comment N [Aut omated message] The = Monocytes #) system which generated this result tra nsmitted reference range : <=0.8. The reference r joan was not used to int erpret this result as normal/abnormal . [facility] CenterJvzinkrQDWYDFTTLM9331-65-71 21:58:00 Test Item Value Reference Range Interpretation Comments Segs (test code = Segs) 93.0 45.0-75.0 H [facility]KrammxhKOCDOBCJXT0376-45-09 21:58:00 Test Item Value Reference Range Interpretation Comments Lymphocytes (test code = Lymphocytes) 5.3 20.0-40.0 L [facility] CenterLrywjzeYNIXCIXUYV0647-63-03 21:58:00 Test Item Value Reference Range Interpretation Comments Basophils (test code = 0.1 See_Comment N [Aut omated message] The Basophils) system which ge nerated this result tra nsmitted reference range : <=1.0. The reference r joan was not used to int erpret this result as normal/abnormal . [facility] CenterPrpiwozAAVPYMFTTY9776-60-26 21:58:00 Test Item Value Reference Range Interpretation Comments Monocytes (test code = Monocytes) 1.6 2.0-12.0 L [facility] CenterFaqfgykEXAHWZJEAV8606-83-80 21:58:00 Test Item Value Reference Range Interpretation Comments Segs-Bands # (test code = Segs-Bands #) 19.3 1.5-8.1 H [facility]BA[facility] - YFCEUHLE7504-05-98 21:58:00 Test Item Value Reference Range Interpretation Comments MRSA by PCR (test Negative 1(05/09/2013 N code = MRSA by PCR) 16:58:00) [facility] HospitalZfefvwzRXHFXJUQU6076-71-27 21:58:00 Test Item Value Reference Range Interpretation Comments eGFR (test code = eGFR) 79 [facility]CxohewmHVIICABIJ5182-67-18 21:58:00 Test Item Value Reference Range Interpretation Comments AGAP (test code = AGAP) 20.7 10.0-20.0 H [facility] RenaissanceSngnjlbRQWTXICDQ8789-38-26 21:58:00 Test Item Value Reference Range Interpretation Comments Chloride Lvl (test code = Chloride Lvl) 106 95-109 N [facility] RenaissanceNzilywiYFEPLNULA3082-60-12 21:58:00 Test Item Value Reference Range Interpretation Comments CO2 (test code = CO2) 19 24-32 L [facility] RenaissanceBqraipdOVQWJRYQX4026-65-76 21:58:00 Test Item Value Reference Range Interpretation Comments Calcium Lvl (test code = Calcium Lvl) 8.0 8.5-10.5 L [facility] RenaissanceGnxaumsUFSWJVVLC8586-24-54 21:58:00 Test Item Value Reference Range Interpretation Comments BUN (test code = BUN) 12 7-22 N [facility] RenaissanceZxvfpknXPWFOVEQK4655-59-99 21:58:00 Test Item Value Reference Range Interpretation Comments Creatinine Lvl (test code = Creatinine 1.0 0.5-1.4 N Lvl) [facility] RenaissanceVwbqwoxEDHMYOOVR9305-76-77 21:58:00 Test Item Value Reference Range Interpretation Comments Glucose Lvl (test code = Glucose Lvl) 198 70-99 H [facility] RenaissanceLfyyxmkYPYNKZSHA1393-53-04 21:58:00 Test Item Value Reference Range Interpretation Comments Sodium Lvl (test code = Sodium Lvl) 142 135-145 N [facility] RenaissanceQyihpbrOYKSKLOJB3978-44-60 21:58:00 Test Item Value Reference Range Interpretation Comments Potassium Lvl (test code = Potassium 3.7 3.5-5.1 N Lvl) [facility] RenaissanceEnloxlsLKWMMAFGC4662-68-30 21:58:00 Test Item Value Reference Range Interpretation Comments Phosphorus (test code = Phosphorus) 3.4 2.5-4.5 N [facility] RenaissanceYkitevySCWHOAGMZ1972-05-05 21:58:00 Test Item Value Reference Range Interpretation Comments Magnesium Lvl (test code = Magnesium 1.4 1.8-2.4 L Lvl) [facility]GvixyynDVZAEONDBD1413-13-79 21:58:00 Test Item Value Reference Range Interpretation Comments MPV (test code = MPV) 9.6 7.4-10.4 N [facility] CenterOimonxzEYABFERVQO3113-65-92 21:58:00 Test Item Value Reference Range Interpretation Comments MCV (test code = MCV) 91.9 81.0-99.0 N [facility] CenterEierpjzFXBYENQLAY1104-76-27 21:58:00 Test Item Value Reference Range Interpretation Comments MCH (test code = MCH) 31.0 pg 27.0-31.0 N [facility] CenterHbfwvjrYNGHJNSQML5714-18-68 21:58:00 Test Item Value Reference Range Interpretation Comments MCHC (test code = MCHC) 33.7 32.0-36.0 N [facility] CenterIxmeonmZMVXIMCDHA9923-27-14 21:58:00 Test Item Value Reference Range Interpretation Comments RDW (test code = RDW) 12.1 11.5-14.5 N [facility] CenterHvyfmslJUEOMHCHWE3779-75-45 21:58:00 Test Item Value Reference Range Interpretation Comments Platelet (test code = Platelet) 253 133-450 N [facility] CenterBxvbimnDMSEEBDBSV0436-27-21 21:58:00 Test Item Value Reference Range Interpretation Comments WBC X 10x3 (test code = WBC X 10x3) 20.8 3.7-10.4 H [facility] CenterEsugwpdHKJCRWVNBW5828-82-08 21:58:00 Test Item Value Reference Range Interpretation Comments RBC X 10x6 (test code = RBC X 10x6) 3.54 4.20-5.40 L [facility] CenterOvnqulaALQBXOJPXC9048-27-27 21:58:00 Test Item Value Reference Range Interpretation Comments Hgb (test code = Hgb) 11.0 12.0-16.0 L [facility] CenterZqwwxjjQMGLQFXEON6008-43-54 21:58:00 Test Item Value Reference Range Interpretation Comments Hct (test code = Hct) 32.5 36.0-48.0 L [facility] CenterQteijfdCKWTOYAJXU9794-99-44 21:58:00 Test Item Value Reference Range Interpretation Comments Lymphocytes # (test code = Lymphocytes 1.1 1.0-5.5 N #) [facility] CenterXpgoeckQOZXGGCUEJ5341-48-80 21:58:00 Test Item Value Reference Range Interpretation Comments Monocytes # (test code 0.3 See_Comment N [Aut omated message] The = Monocytes #) system which generated this result tra nsmitted reference range : <=0.8. The reference r joan was not used to int erpret this result as normal/abnormal . [facility] CenterRyeixgsNRORQSBCVM7134-49-68 21:58:00 Test Item Value Reference Range Interpretation Comments Segs (test code = Segs) 93.0 45.0-75.0 H [facility] CenterGhedrdpXYTYOAUNVA9629-95-83 21:58:00 Test Item Value Reference Range Interpretation Comments Lymphocytes (test code = Lymphocytes) 5.3 20.0-40.0 L [facility] CenterXodesebYZIOTJZNIF0666-33-54 21:58:00 Test Item Value Reference Range Interpretation Comments Basophils (test code = 0.1 See_Comment N [Aut omated message] The Basophils) system which ge nerated this result tra nsmitted reference range : <=1.0. The reference r joan was not used to int erpret this result as normal/abnormal . [facility] CenterGsabfoyAYNDRYJNRT1036-20-16 21:58:00 Test Item Value Reference Range Interpretation Comments Monocytes (test code = Monocytes) 1.6 2.0-12.0 L [facility]MohctxgXFVLBXOADH1632-97-99 21:58:00 Test Item Value Reference Range Interpretation Comments Segs-Bands # (test code = Segs-Bands #) 19.3 1.5-8.1 H [facility] RenaissanceTkdcwflXEJLODLDP3347-44-99 15:33:00 Test Item Value Reference Range Interpretation Comments POC A Glu (test code = POC A Glu) 109 70-99 H [facility] RenaissanceZyjbgdhONHTYXZVD1686-09-05 15:33:00 Test Item Value Reference Range Interpretation Comments POC A LA (test code = POC A LA) 1.6 0.5-2.2 N [facility] RenaissanceYikhrtcGWOWPVUSD6350-18-83 15:33:00 Test Item Value Reference Range Interpretation Comments POC A HCO3 (test code = POC A HCO3) 26 22-26 N [facility] RenaissanceNeqawbcTEKTPLNTK3435-69-98 15:33:00 Test Item Value Reference Range Interpretation Comments POC A BE (test code = 0 See_Comment N [Auto mated message] The POC A BE) system which ge nerated this result transmit richard reference range : <=2. The reference range was not used to interpr et this result as robbie l/abnormal. [facility] RenaissanceAlcstiaLDUMHXYBH8526-72-27 15:33:00 Test Item Value Reference Range Interpretation Comments POC A O2 Sat (test code = POC A O2 Sat) 100.0 95.0-100.0 N [facility] RenaissanceUmfxntbYLTWQNNAA6879-03-68 15:33:00 Test Item Value Reference Range Interpretation Comments POC A Ca Ion (test code = POC A Ca Ion) 1.09 1.05-1.25 N [facility] RenaissanceTortbkuQTVDAKBYX0544-84-96 15:33:00 Test Item Value Reference Range Interpretation Comments POC A pH (test code = POC A pH) 7.34 7.35-7.45 L [facility] RenaissanceTqjusnpKTCXBEMFI4556-95-59 15:33:00 Test Item Value Reference Range Interpretation Comments POC A PO2 (test code = POC A PO2) 417 80-100 H [facility] RenaissanceRbthjlnXOMTHRNFZ7151-96-24 15:33:00 Test Item Value Reference Range Interpretation Comments POC A PCO2 (test code = POC A PCO2) 48 35-45 H [facility] RenaissanceTjsygltVHOZRWCIY9807-73-77 15:33:00 Test Item Value Reference Range Interpretation Comments POC A Temp (test code = POC A Temp) 37.0 [facility] RenaissanceWncgdcqAHIFCURPO2555-95-21 15:33:00 Test Item Value Reference Range Interpretation Comments POC A Source (test code = POC A Source) ART [facility] RenaissanceLajqhwpUKXJNTTUL3620-70-74 15:33:00 Test Item Value Reference Range Interpretation Comments POC A Hct (test code = POC A Hct) 34.0 36.0-48.0 L [facility] RenaissanceJsuxfruYZAEDGMEV9683-62-41 15:33:00 Test Item Value Reference Range Interpretation Comments POC A Na (test code = POC A Na) 137 135-145 N [facility] RenaissanceMvdowhrGWSRESKDL3610-91-88 15:33:00 Test Item Value Reference Range Interpretation Comments POC A K (test code = POC A K) 3.9 3.5-5.1 N [facility] RenaissanceAxrugtoAREGXKCIC9956-21-23 15:33:00 Test Item Value Reference Range Interpretation Comments POC A Glu (test code = POC A Glu) 109 70-99 H [facility] RenaissanceCvdhosgETBDABFMM8109-86-08 15:33:00 Test Item Value Reference Range Interpretation Comments POC A LA (test code = POC A LA) 1.6 0.5-2.2 N [facility] RenaissanceNjyojhpIDJNECCPZ5720-44-05 15:33:00 Test Item Value Reference Range Interpretation Comments POC A HCO3 (test code = POC A HCO3) 26 22-26 N [facility] RenaissanceKuuisriKPBSOAPGV3580-08-15 15:33:00 Test Item Value Reference Range Interpretation Comments POC A BE (test code = 0 See_Comment N [Auto mated message] The POC A BE) system which ge nerated this result transmit richard reference range : <=2. The reference range was not used to interpr et this result as robbie l/abnormal. [facility] RenaissancePhyulinZXFALNKVR4298-15-51 15:33:00 Test Item Value Reference Range Interpretation Comments POC A O2 Sat (test code = POC A O2 Sat) 100.0 95.0-100.0 N [facility] RenaissanceFkbivihNZWDVIZUQ7453-93-54 15:33:00 Test Item Value Reference Range Interpretation Comments POC A Ca Ion (test code = POC A Ca Ion) 1.09 1.05-1.25 N [facility] RenaissancePtejexuAXPTYLAJJ0766-49-49 15:33:00 Test Item Value Reference Range Interpretation Comments POC A pH (test code = POC A pH) 7.34 7.35-7.45 L [facility] RenaissanceBgosgxjUFPBSSGOT9864-52-83 15:33:00 Test Item Value Reference Range Interpretation Comments POC A PO2 (test code = POC A PO2) 417 80-100 H [facility] RenaissanceToiuvshZXACXVPZW5160-07-27 15:33:00 Test Item Value Reference Range Interpretation Comments POC A PCO2 (test code = POC A PCO2) 48 35-45 H [facility] RenaissanceMperrksMCMDTAOQC2435-90-61 15:33:00 Test Item Value Reference Range Interpretation Comments POC A Temp (test code = POC A Temp) 37.0 [facility] RenaissanceRrreyviHJLDQPEBD9177-22-83 15:33:00 Test Item Value Reference Range Interpretation Comments POC A Source (test code = POC A Source) ART [facility] RenaissanceXuofafbGLGDBWQMP4032-59-92 15:33:00 Test Item Value Reference Range Interpretation Comments POC A Hct (test code = POC A Hct) 34.0 36.0-48.0 L [facility] RenaissanceMfroxmwCJYOGTNIF4432-21-67 15:33:00 Test Item Value Reference Range Interpretation Comments POC A Na (test code = POC A Na) 137 135-145 N [facility] RenaissanceKbmiiocOELFVWZXH4427-00-04 15:33:00 Test Item Value Reference Range Interpretation Comments POC A K (test code = POC A K) 3.9 3.5-5.1 N [facility] RenaissanceAdxidsjNKCNPXVKN5942-77-07 15:33:00 Test Item Value Reference Range Interpretation Comments POC A Glu (test code = POC A Glu) 109 70-99 H [facility] RenaissanceToqhtcoMVEDRFLHT9999-84-96 15:33:00 Test Item Value Reference Range Interpretation Comments POC A LA (test code = POC A LA) 1.6 0.5-2.2 N [facility] RenaissanceGvrwblsKFFNQEBYG6148-25-41 15:33:00 Test Item Value Reference Range Interpretation Comments POC A HCO3 (test code = POC A HCO3) 26 22-26 N [facility] RenaissanceXzvhikmLQKQTIXTI2947-87-71 15:33:00 Test Item Value Reference Range Interpretation Comments POC A BE (test code = 0 See_Comment N [Auto mated message] The POC A BE) system which ge nerated this result transmit richard reference range : <=2. The reference range was not used to interpr et this result as robbie l/abnormal. [facility] RenaissancePatcxunSRAAQRRCO3636-96-45 15:33:00 Test Item Value Reference Range Interpretation Comments POC A O2 Sat (test code = POC A O2 Sat) 100.0 95.0-100.0 N [facility] RenaissanceOnbmlikGHSMRVKMU2923-79-95 15:33:00 Test Item Value Reference Range Interpretation Comments POC A Ca Ion (test code = POC A Ca Ion) 1.09 1.05-1.25 N [facility] RenaissanceCqialnjXGFKMTKSV1446-77-01 15:33:00 Test Item Value Reference Range Interpretation Comments POC A pH (test code = POC A pH) 7.34 7.35-7.45 L [facility] RenaissanceRovqatoMISGESZMT6658-55-66 15:33:00 Test Item Value Reference Range Interpretation Comments POC A PO2 (test code = POC A PO2) 417 80-100 H [facility] RenaissanceEdxzsuwFDYBCHDOR6004-93-77 15:33:00 Test Item Value Reference Range Interpretation Comments POC A PCO2 (test code = POC A PCO2) 48 35-45 H [facility] RenaissanceOefcuhjBVMZIGRVJ6000-73-62 15:33:00 Test Item Value Reference Range Interpretation Comments POC A Temp (test code = POC A Temp) 37.0 [facility] RenaissanceSuhssnmIBAOVRIRX4461-93-65 15:33:00 Test Item Value Reference Range Interpretation Comments POC A Source (test code = POC A Source) ART [facility] RenaissanceXewzejrNVDPRKGEX3184-43-29 15:33:00 Test Item Value Reference Range Interpretation Comments POC A Hct (test code = POC A Hct) 34.0 36.0-48.0 L [facility] RenaissanceQcttlfiWTEEBOUHB3036-84-33 15:33:00 Test Item Value Reference Range Interpretation Comments POC A Na (test code = POC A Na) 137 135-145 N [facility] RenaissanceOsnsxrdBWSITHAVI2271-48-61 15:33:00 Test Item Value Reference Range Interpretation Comments POC A K (test code = POC A K) 3.9 3.5-5.1 N [facility] RenaissanceOdeqijqHCVZCELKJ8438-75-95 14:10:00 Test Item Value Reference Range Interpretation Comments POC A Hct (test code = POC A Hct) 39.0 36.0-48.0 N [facility] RenaissanceIbnwjaoUDKWLLHQY9562-81-33 14:10:00 Test Item Value Reference Range Interpretation Comments POC A K (test code = POC A K) 3.5 3.5-5.1 N [facility] RenaissancePadlheiZFUBKJPZD0649-30-75 14:10:00 Test Item Value Reference Range Interpretation Comments POC A Na (test code = POC A Na) 138 135-145 N [facility] RenaissanceSkstcanNMBNVBEOO3374-27-67 14:10:00 Test Item Value Reference Range Interpretation Comments POC A Ca Ion (test code = POC A Ca Ion) 1.12 1.05-1.25 N [facility] RenaissanceXllefyqIECMMSDVK9398-32-37 14:10:00 Test Item Value Reference Range Interpretation Comments POC A O2 Sat (test code = POC A O2 Sat) 100.0 95.0-100.0 N [facility] RenaissanceJcmxcmoHTYQZENVI4011-46-98 14:10:00 Test Item Value Reference Range Interpretation Comments POC A BE (test code = -1 See_Comment N [Auto mated message] The POC A BE) system which ge nerated this result transmit richard reference range : <=2. The reference range was not used to interpr et this result as robbie l/abnormal. [facility] RenaissanceHebhqkaAOQLYTGAG6974-32-10 14:10:00 Test Item Value Reference Range Interpretation Comments POC A Source (test code = POC A Source) ART [facility] RenaissanceAzvzfshQDRWDSNJE4156-23-14 14:10:00 Test Item Value Reference Range Interpretation Comments POC A pH (test code = POC A pH) 7.38 7.35-7.45 N [facility] RenaissanceXwmhgfzIXVLZRBJH0994-12-87 14:10:00 Test Item Value Reference Range Interpretation Comments POC A Temp (test code = POC A Temp) 37.0 [facility] RenaissanceLehdicdICLUGCFHU9433-02-26 14:10:00 Test Item Value Reference Range Interpretation Comments POC A HCO3 (test code = POC A HCO3) 24 22-26 N [facility] RenaissanceJpxrgqdEMGFPDXWW9485-01-69 14:10:00 Test Item Value Reference Range Interpretation Comments POC A PO2 (test code = POC A PO2) 332 80-100 H [facility] RenaissanceZprmyioBMHNOAXIJ9405-74-34 14:10:00 Test Item Value Reference Range Interpretation Comments POC A PCO2 (test code = POC A PCO2) 41 35-45 N [facility] RenaissanceSgnknhuBRVUYTIWF2658-77-63 14:10:00 Test Item Value Reference Range Interpretation Comments POC A LA (test code = POC A LA) 2.1 0.5-2.2 N [facility] RenaissanceAwvjbnxHEHFYLVWD2375-91-51 14:10:00 Test Item Value Reference Range Interpretation Comments POC A Glu (test code = POC A Glu) 132 70-99 H [facility] RenaissanceUozctvrPOFEYOLBD0049-46-56 14:10:00 Test Item Value Reference Range Interpretation Comments POC A Hct (test code = POC A Hct) 39.0 36.0-48.0 N [facility] RenaissanceAydrbytLTVRNGBFG3794-75-28 14:10:00 Test Item Value Reference Range Interpretation Comments POC A K (test code = POC A K) 3.5 3.5-5.1 N [facility] RenaissanceTvguajlSTKAEMNWR0684-85-05 14:10:00 Test Item Value Reference Range Interpretation Comments POC A Na (test code = POC A Na) 138 135-145 N [facility] RenaissanceZdbedkmFIJXUKQXQ2374-08-35 14:10:00 Test Item Value Reference Range Interpretation Comments POC A Ca Ion (test code = POC A Ca Ion) 1.12 1.05-1.25 N [facility] RenaissanceQyvjqziMOMFPMWNH0873-52-64 14:10:00 Test Item Value Reference Range Interpretation Comments POC A O2 Sat (test code = POC A O2 Sat) 100.0 95.0-100.0 N [facility] RenaissanceXhjwixjBIHIGNXJQ2951-77-76 14:10:00 Test Item Value Reference Range Interpretation Comments POC A BE (test code = -1 See_Comment N [Auto mated message] The POC A BE) system which ge nerated this result transmit richard reference range : <=2. The reference range was not used to interpr et this result as robbie l/abnormal. [facility] RenaissanceTygfolcCIIMAZGPG2878-28-49 14:10:00 Test Item Value Reference Range Interpretation Comments POC A Source (test code = POC A Source) ART [facility] RenaissanceTcashkgVVYQNJWUT9214-12-10 14:10:00 Test Item Value Reference Range Interpretation Comments POC A pH (test code = POC A pH) 7.38 7.35-7.45 N [facility] RenaissanceXrdrwlwLGLEDERXT6003-19-36 14:10:00 Test Item Value Reference Range Interpretation Comments POC A Temp (test code = POC A Temp) 37.0 [facility] RenaissanceDgeoxitDEKTKTTEI8567-71-49 14:10:00 Test Item Value Reference Range Interpretation Comments POC A HCO3 (test code = POC A HCO3) 24 22-26 N [facility] RenaissanceGbpcnknBRXVASTRJ7660-57-92 14:10:00 Test Item Value Reference Range Interpretation Comments POC A PO2 (test code = POC A PO2) 332 80-100 H [facility] RenaissanceFakxkdcMOACNWVAS1656-01-74 14:10:00 Test Item Value Reference Range Interpretation Comments POC A PCO2 (test code = POC A PCO2) 41 35-45 N [facility] RenaissanceXqdoogkNAZHCMRXW4225-64-32 14:10:00 Test Item Value Reference Range Interpretation Comments POC A LA (test code = POC A LA) 2.1 0.5-2.2 N [facility] RenaissanceAqhpekeGZAMJHSKZ6997-15-17 14:10:00 Test Item Value Reference Range Interpretation Comments POC A Glu (test code = POC A Glu) 132 70-99 H [facility] RenaissanceReedrniJBAJASVQA5845-73-22 14:10:00 Test Item Value Reference Range Interpretation Comments POC A Hct (test code = POC A Hct) 39.0 36.0-48.0 N [facility] RenaissanceAelpkwuYPPUFTVEY2448-72-19 14:10:00 Test Item Value Reference Range Interpretation Comments POC A K (test code = POC A K) 3.5 3.5-5.1 N [facility] RenaissanceEknijxrWYUKRJLQZ8158-89-69 14:10:00 Test Item Value Reference Range Interpretation Comments POC A Na (test code = POC A Na) 138 135-145 N [facility] RenaissanceCkvaiwnAAWUQIAPS6603-97-63 14:10:00 Test Item Value Reference Range Interpretation Comments POC A Ca Ion (test code = POC A Ca Ion) 1.12 1.05-1.25 N [facility] RenaissanceTnayssrETZQXXZGP7766-80-42 14:10:00 Test Item Value Reference Range Interpretation Comments POC A O2 Sat (test code = POC A O2 Sat) 100.0 95.0-100.0 N [facility] RenaissanceYelxckdDWIWLHQOW6780-68-61 14:10:00 Test Item Value Reference Range Interpretation Comments POC A BE (test code = -1 See_Comment N [Auto mated message] The POC A BE) system which ge nerated this result transmit richard reference range : <=2. The reference range was not used to interpr et this result as robbie l/abnormal. [facility] RenaissanceFxotgcyQCJKJEWEZ7632-24-51 14:10:00 Test Item Value Reference Range Interpretation Comments POC A Source (test code = POC A Source) ART SouidprWHYGFPSAD3218-97-81 14:10:00 Test Item Value Reference Range Interpretation Comments POC A pH (test code = POC A pH) 7.38 7.35-7.45 N [facility] RenaissanceCfxaffrWPSMZQEIN3100-66-66 14:10:00 Test Item Value Reference Range Interpretation Comments POC A Temp (test code = POC A Temp) 37.0 [facility] RenaissanceAwoskegFKXKENETN1771-74-52 14:10:00 Test Item Value Reference Range Interpretation Comments POC A HCO3 (test code = POC A HCO3) 24 22-26 N [facility] RenaissanceMmxmkwzLPJGUVPHL8018-19-76 14:10:00 Test Item Value Reference Range Interpretation Comments POC A PO2 (test code = POC A PO2) 332 80-100 H [facility] RenaissanceIzauxurRKLREHFOS3308-39-49 14:10:00 Test Item Value Reference Range Interpretation Comments POC A PCO2 (test code = POC A PCO2) 41 35-45 N [facility] RenaissanceGegmocbNURLWWYOU0808-10-23 14:10:00 Test Item Value Reference Range Interpretation Comments POC A LA (test code = POC A LA) 2.1 0.5-2.2 N [facility] RenaissanceQdubdptRBJVGUVLM4284-11-10 14:10:00 Test Item Value Reference Range Interpretation Comments POC A Glu (test code = POC A Glu) 132 70-99 H [facility] OBMFVHU5587-03-15 11:40:00 Test Item Value Reference Range Interpretation Comments Antibody Scrn (test Negative (05/09/2013 N code = Antibody Scrn) 06:40:00) [facility] KSQZHWY8215-40-88 11:40:00 Test Item Value Reference Range Interpretation Comments ABO/Rh (test code = ABO/Rh) A POS [facility] ZLNLAAW3756-94-93 11:40:00 Test Item Value Reference Range Interpretation Comments Antibody Scrn (test Negative (05/09/2013 N code = Antibody Scrn) 06:40:00) [facility] DHKCABF3389-11-64 11:40:00 Test Item Value Reference Range Interpretation Comments ABO/Rh (test code = ABO/Rh) A POS [facility] TQPARBC0959-71-11 11:40:00 Test Item Value Reference Range Interpretation Comments Antibody Scrn (test Negative (05/09/2013 N code = Antibody Scrn) 06:40:00) [facility] OFTRTKB2704-26-77 11:40:00 Test Item Value Reference Range Interpretation Comments ABO/Rh (test code = ABO/Rh) A POS [facility] RenaissanceAgihywhOCBYLPZCB7899-06-30 11:39:40 Test Item Value Reference Range Interpretation Comments A/G Ratio (test code = A/G Ratio) 1.3 0.7-1.6 N [facility] RenaissanceApegsckFHRHZPXFU2126-49-52 11:39:40 Test Item Value Reference Range Interpretation Comments Globulin (test code = Globulin) 3.6 2.0-4.0 N [facility] RenaissanceOdmnvfhXNNZUELBR5139-92-67 11:39:40 Test Item Value Reference Range Interpretation Comments B/C Ratio (test code = B/C Ratio) 16 6-25 N [facility] RenaissanceBstkwdiZXIZPHXXJ2076-43-72 11:39:40 Test Item Value Reference Range Interpretation Comments Alk Phos (test code = Alk Phos) 64 39-136 N [facility] RenaissanceYeilwhpSZWVSSSUQ7094-82-86 11:39:40 Test Item Value Reference Range Interpretation Comments Bili Total (test code = Bili Total) 0.7 0.2-1.3 N [facility] RenaissanceKotqmraPOOPBKFJZ7690-77-64 11:39:40 Test Item Value Reference Range Interpretation Comments ASPARTATE TRANSAMINASE 13 See_Comment N [Aut omated message] (test code = ASPARTATE The s ystem which TRANSAMINASE) generated this result transmitted ref erence range: <=37. Th e reference range was not used to interpr et this result as normal/abnormal . [facility] RenaissanceKlgwydhIGGIHRYEG7771-85-51 11:39:40 Test Item Value Reference Range Interpretation Comments Total Protein (test code = Total 8.4 6.4-8.4 N Protein) [facility] RenaissanceIsplvsiIUKRHPNCE8854-65-76 11:39:40 Test Item Value Reference Range Interpretation Comments ALANINE AMINOTRANSFERASE 24 See_Comment N [A utomated message] (test code = ALANINE The sys tem which AMINOTRANSFERASE) generated this result transmitted ref erence range: <=65. Th e reference range was not used to int erpret this result as normal/abnormal . [facility] RenaissanceInynphuZJLLLBLBZ4011-91-58 11:39:40 Test Item Value Reference Range Interpretation Comments Albumin Lvl (test code = Albumin Lvl) 4.8 3.5-5.0 N [facility]WphgnysKNUDKTBTZH4440-61-51 11:39:40 Test Item Value Reference Range Interpretation Comments aPTT (test code = aPTT) 28.7 s 22.9-35.8 N [facility] CenterWgiskbbNWBFTTWBQO0223-51-54 11:39:40 Test Item Value Reference Range Interpretation Comments INR (test code = INR) 1.00 0.85-1.17 N [facility] CenterJjbkwgqRBVURPCQKQ4856-40-34 11:39:40 Test Item Value Reference Range Interpretation Comments PROTIME (test code = PROTIME) 13.1 s 12.0-14.7 N [facility] RenaissanceYkobhznPKITQFASS6391-20-45 11:39:40 Test Item Value Reference Range Interpretation Comments A/G Ratio (test code = A/G Ratio) 1.3 0.7-1.6 N [facility] RenaissanceKybkxrlTVCAOAIWE8172-01-01 11:39:40 Test Item Value Reference Range Interpretation Comments Globulin (test code = Globulin) 3.6 2.0-4.0 N [facility] RenaissanceOdzghvsAWJYSCKFB9680-92-80 11:39:40 Test Item Value Reference Range Interpretation Comments B/C Ratio (test code = B/C Ratio) 16 6-25 N [facility] RenaissancePcarxurTCHYRBVBI4130-24-39 11:39:40 Test Item Value Reference Range Interpretation Comments Alk Phos (test code = Alk Phos) 64 39-136 N [facility] RenaissanceAfltglsVXIVORYKL5399-82-19 11:39:40 Test Item Value Reference Range Interpretation Comments Bili Total (test code = Bili Total) 0.7 0.2-1.3 N [facility] RenaissanceBeuctohKMKIJOGMW7848-28-52 11:39:40 Test Item Value Reference Range Interpretation Comments ASPARTATE TRANSAMINASE 13 See_Comment N [Aut omated message] (test code = ASPARTATE The s ystem which TRANSAMINASE) generated this result transmitted ref erence range: <=37. Th e reference range was not used to interpr et this result as normal/abnormal . [facility] RenaissanceOsqqmafRRHLJPNTH5253-12-56 11:39:40 Test Item Value Reference Range Interpretation Comments Total Protein (test code = Total 8.4 6.4-8.4 N Protein) [facility]NsgykahEWJNZMFTV2651-73-05 11:39:40 Test Item Value Reference Range Interpretation Comments ALANINE AMINOTRANSFERASE 24 See_Comment N [A utomated message] (test code = ALANINE The sys tem which AMINOTRANSFERASE) generated this result transmitted ref erence range: <=65. Th e reference range was not used to int erpret this result as normal/abnormal . [facility] RenaissanceOaxscbyMQNNEKPPS1189-09-61 11:39:40 Test Item Value Reference Range Interpretation Comments Albumin Lvl (test code = Albumin Lvl) 4.8 3.5-5.0 N [facility]LffrjxwLWQACEQGFX8810-43-33 11:39:40 Test Item Value Reference Range Interpretation Comments aPTT (test code = aPTT) 28.7 s 22.9-35.8 N [facility] CenterThysrfuVPXZPRDMRF5684-31-26 11:39:40 Test Item Value Reference Range Interpretation Comments INR (test code = INR) 1.00 0.85-1.17 N [facility] CenterHnbvxrqHDBDFPNEBH3144-25-56 11:39:40 Test Item Value Reference Range Interpretation Comments PROTIME (test code = PROTIME) 13.1 s 12.0-14.7 N [facility] RenaissanceZuovnbrZNNIBXZXX6235-41-75 11:39:40 Test Item Value Reference Range Interpretation Comments A/G Ratio (test code = A/G Ratio) 1.3 0.7-1.6 N [facility] RenaissanceSslxwkrJUPVKFZTZ8501-58-06 11:39:40 Test Item Value Reference Range Interpretation Comments Globulin (test code = Globulin) 3.6 2.0-4.0 N [facility] RenaissanceEhclswyMYMRKIQTV1635-41-93 11:39:40 Test Item Value Reference Range Interpretation Comments B/C Ratio (test code = B/C Ratio) 16 6-25 N [facility] RenaissanceVsikyzmAKJFQHJKM4137-83-48 11:39:40 Test Item Value Reference Range Interpretation Comments Alk Phos (test code = Alk Phos) 64 39-136 N [facility] RenaissanceNxbzwnmZIGXYZAQV2269-99-64 11:39:40 Test Item Value Reference Range Interpretation Comments Bili Total (test code = Bili Total) 0.7 0.2-1.3 N [facility] RenaissanceBbsreitYGRAQXINA3348-77-88 11:39:40 Test Item Value Reference Range Interpretation Comments ASPARTATE TRANSAMINASE 13 See_Comment N [Aut omated message] (test code = ASPARTATE The s ystem which TRANSAMINASE) generated this result transmitted ref erence range: <=37. Th e reference range was not used to interpr et this result as normal/abnormal . [facility] RenaissanceSwsrubsKDPDKLCNE9631-28-56 11:39:40 Test Item Value Reference Range Interpretation Comments Total Protein (test code = Total 8.4 6.4-8.4 N Protein) [facility] RenaissanceTzwroetAUWNEVRCB3518-94-81 11:39:40 Test Item Value Reference Range Interpretation Comments ALANINE AMINOTRANSFERASE 24 See_Comment N [A utomated message] (test code = ALANINE The sys tem which AMINOTRANSFERASE) generated this result transmitted ref erence range: <=65. Th e reference range was not used to int erpret this result as normal/abnormal . [facility] RenaissanceWmnmtvoQPRFWSRHX7707-01-61 11:39:40 Test Item Value Reference Range Interpretation Comments Albumin Lvl (test code = Albumin Lvl) 4.8 3.5-5.0 N [facility] CenterKpcgrlbEHMINAAIOJ1916-08-45 11:39:40 Test Item Value Reference Range Interpretation Comments aPTT (test code = aPTT) 28.7 s 22.9-35.8 N [facility] CenterShkxutrWMXPLISKQD7002-66-10 11:39:40 Test Item Value Reference Range Interpretation Comments INR (test code = INR) 1.00 0.85-1.17 N [facility] CenterPjtknyzKHINDUSQFO1577-53-19 11:39:40 Test Item Value Reference Range Interpretation Comments PROTIME (test code = PROTIME) 13.1 s 12.0-14.7 N [facility] RenaissanceWwfelvdBGPQNMCKQ5721-61-76 11:37:00 Test Item Value Reference Range Interpretation Comments U Preg (test code = U Negative (05/09/2013 N Preg) 06:37:00) [facility] CenterXenappdMHKQNQAIKV1993-98-71 11:37:00 Test Item Value Reference Range Interpretation Comments Plt Morph (test code = Normal (05/09/2013 N Plt Morph) 06:37:00) [facility] CenterFvxshnbBGUXOUBPFX0874-07-35 11:37:00 Test Item Value Reference Range Interpretation Comments Eosinophils (test code = 1.0 See_Comment N [A utomated message] The Eosinophils) system which ge nerated this result tra nsmitted reference range : <=4.0. The reference r joan was not used to int erpret this result as normal/abnormal . [facility] CenterUhfeeraGLXGGLFDZH8386-29-66 11:37:00 Test Item Value Reference Range Interpretation Comments Atypical Lymphs (test code = Atypical 0.0 N Lymphs) [facility] CenterNhctgznLHHCELCEPH3882-01-11 11:37:00 Test Item Value Reference Range Interpretation Comments RBC Morph (test code = Normal (05/09/2013 N RBC Morph) 06:37:00) [facility] CenterPhhxwqpWBSPCYIWQI3847-17-47 11:37:00 Test Item Value Reference Range Interpretation Comments Bands (test code = 0.0 See_Comment N [Automat ed message] The Bands) system which ge nerated this result transmit richard reference range : <=11.0. The reference r joan was not used to interpr et this result as robbie l/abnormal. [facility] CenterAzuhqpuSQFLGCUMAL9889-43-40 11:37:00 Test Item Value Reference Range Interpretation Comments Eosinophils # (test code 0.1 See_Comment N [A utomated message] The = Eosinophils #) system whic h generated this result tra nsmitted reference range : <=0.5. The reference r joan was not used to int erpret this result as normal/abnormal . [facility] RenaissanceLwmkgeeBLWUBZXOF5627-88-86 11:37:00 Test Item Value Reference Range Interpretation Comments U Preg (test code = U Negative (05/09/2013 N Preg) 06:37:00) [facility] CenterJgbqwanKXDSWXDUNK9292-03-30 11:37:00 Test Item Value Reference Range Interpretation Comments Plt Morph (test code = Normal (05/09/2013 N Plt Morph) 06:37:00) [facility] CenterVmwuhsuSIRPAOJUTI2647-47-33 11:37:00 Test Item Value Reference Range Interpretation Comments Eosinophils (test code = 1.0 See_Comment N [A utomated message] The Eosinophils) system which ge nerated this result tra nsmitted reference range : <=4.0. The reference r joan was not used to int erpret this result as normal/abnormal . [facility] CenterLqzpabnUYUIGTCRAE7379-45-60 11:37:00 Test Item Value Reference Range Interpretation Comments Atypical Lymphs (test code = Atypical 0.0 N Lymphs) [facility] CenterYdsqeamXYETREYRGY0551-27-72 11:37:00 Test Item Value Reference Range Interpretation Comments RBC Morph (test code = Normal (05/09/2013 N RBC Morph) 06:37:00) [facility] CenterZdcenmpCMLTFCZDCZ8993-37-70 11:37:00 Test Item Value Reference Range Interpretation Comments Bands (test code = 0.0 See_Comment N [Automat ed message] The Bands) system which ge nerated this result transmit richard reference range : <=11.0. The reference r joan was not used to interpr et this result as robbie l/abnormal. [facility] CenterHpplympPWBXWGWWJO7263-11-62 11:37:00 Test Item Value Reference Range Interpretation Comments Eosinophils # (test code 0.1 See_Comment N [A utomated message] The = Eosinophils #) system whic h generated this result tra nsmitted reference range : <=0.5. The reference r joan was not used to int erpret this result as normal/abnormal . [facility] RenaissanceCcthqxgWYJNDEDCC1738-00-12 11:37:00 Test Item Value Reference Range Interpretation Comments U Preg (test code = U Negative (05/09/2013 N Preg) 06:37:00) [facility] CenterGorcssaTPBETWLTBF0847-04-77 11:37:00 Test Item Value Reference Range Interpretation Comments Plt Morph (test code = Normal (05/09/2013 N Plt Morph) 06:37:00) [facility] CenterAwlhxvkGXYUDHFMTS9968-42-43 11:37:00 Test Item Value Reference Range Interpretation Comments Eosinophils (test code = 1.0 See_Comment N [A utomated message] The Eosinophils) system which ge nerated this result tra nsmitted reference range : <=4.0. The reference r joan was not used to int erpret this result as normal/abnormal . [facility] CenterMijhyleZUXIHETLCZ5250-47-04 11:37:00 Test Item Value Reference Range Interpretation Comments Atypical Lymphs (test code = Atypical 0.0 N Lymphs) [facility] CenterTpsizmlDDVOSZXIBG1644-18-50 11:37:00 Test Item Value Reference Range Interpretation Comments RBC Morph (test code = Normal (05/09/2013 N RBC Morph) 06:37:00) [facility] CenterLnnjeraYENKUEIDRW0310-45-63 11:37:00 Test Item Value Reference Range Interpretation Comments Bands (test code = 0.0 See_Comment N [Automat ed message] The Bands) system which ge nerated this result transmit richard reference range : <=11.0. The reference r joan was not used to interpr et this result as robbie l/abnormal. [facility]FahbqcfMNXLRCBCYM3118-99-84 11:37:00 Test Item Value Reference Range Interpretation Comments Eosinophils # (test code 0.1 See_Comment N [A utomated message] The = Eosinophils #) system whic h generated this result tra nsmitted reference range : <=0.5. The reference r joan was not used to int erpret this result as normal/abnormal . [facility] Notes Date/Time Note Provider Source 2022-07-03 14:45:00-00:00 [facility] OB Disch REPORT#:[id number] REPORT STATUS: Signed DATE:07/03/22 TIME: 144 PATIENT: CAITLYN MORALEZ UNIT #: [id number] ROOM/BED: : 88 AGE: 31 SEX: F ATTEND: Camila Ferreira MD ADM AUTHOR: Herlinda Cormier MD * ALL edits or amendments must be made on the [employer]/computer document * Subjective Subjective Admission EGA: Weeks: [...] 97-114/62-74 Last Documented: Result Date Time B/P 11407/03 08 Temp 98.5 07/03 0843 Pulse 69 07/03 0843 Resp 18 07/03 0843 Pulse Ox 94 07/01 1700 B/P Mean 87.0 07/01 1645 PATIENT WEIGHT: Weight (lb): 153 Weight (oz): Weight (kg): 69.036040 Physical Exam Lungs: unlabored breathing Neuro: Exam: [...] epidural anesthesia Procedures: epidural anesthesia, repeat CS [place] Discharge condition: stable Discharge to: Home/Self Care Discharge diagnosis: full-term uncomp delivery Discharge management: less than 30 mins Time spent: Time spent with patient (minut 15 >50% spent on counseling/coordination of care: yes Baby A: Gender: male (Renan) 1 minute: 8 5 minutes: 9 Plan: routine care, discharge today Discharge Instructions Instructions: instr and warnings rev'd Diet: Regular Activity: No Driving, No [place] for 6 Wks, No Lifting >10lbs Additional [...] Cormier MD on 10/20 at 1641 RPT #:[id number] END OF REPORT 2022-07-02 17:34:00-00:00 [facility] ([facility]) OB Postpart Progr Note REPORT#:[id number] REPORT STATUS: Signed DATE:07/02/22 TIME: 1734 PATIENT: CAITLYN MORALEZ UNIT #: [id number] ROOM/BED: : 88 AGE: 31 SEX: F ATTEND: Camila Ferreira MD ADM AUTHOR: Maria Calderon MD * ALL edits or amendments must be made on the el [employer]/computer document * Subjective Subjective Admission EGA: Weeks: [...] Weight (lb): 153 Weight (oz): Weight (kg): 69.430373 Physical Exam Neuro: Exam: alert, oriented x3, normal speech Abdomen: soft, no abnormal tenderness Uterus: firm, involution appropriate, non-tender Fundus: firm, below the umbilicus, non-tender Lower extremities: Honorio's sign: negative Result Findings/Data: Laboratory Tests: 07/02 0718 Hematology Hgb [...] Calderon MD on 09/22 at 1852 RPT #:[id number] END OF REPORT 2022-07-02 15:01:00-00:00 [facility] ([facility]) OB Postpart Progr Note REPORT#:[id number] REPORT STATUS: Signed DATE:07/02/22 TIME: 1501 PATIENT: CAITLYN MORALEZ UNIT #: [id number] ROOM/BED: : 88 AGE: 31 SEX: F ATTEND: Camila Ferreira MD ADM AUTHOR: Herlinda Cormier MD * ALL edits or amendments must be made on the el [employer]/computer document * Herlinda Cormier 07/02/22 1501: Subjective Subjective Comments: This note was started in error. Please diregard. Electronically Signed by Herlinda Cormier MD on 10/20 at 0832 Electronically Signed by Maria Calderon MD on 01/20 at 1117 RPT #:[id number] END OF REPORT 2022-07-01 13:54:00-00:00 [facility] ([facility]) OB Delivery Note REPORT#:[id number] REPORT STATUS: Signed DATE:07/01/22 TIME: 1354 PATIENT: CAITLYN MORALEZ UNIT #: [id number] [facility] AGE: 31 SEX: F ATTEND: [...] A: Delivery time infant A: Birthweight (gm) A: Weight (lb) A: Weight (oz) infant A: Gender A: 1 minute A: 5 minutes infant A: 10 minutes A: Cord pH obtained infant A: Vacuum time infant A: Vacuum # pulls A: Vacuum # popoffs A: QBL at delivery: __ Provider comments on imported nursing data: [] Pre-delivery GBS status: GBS status: negative Stella evaluation at delivery: NRP certified pe rsonnel [...] surgical prophylaxis. )(Primary Surgeon: Camila Ferreira MD )(Anti Tank Missileman(s): SHAHID Powers )(Anesthesia: combined spinal/epi )(Operative findings: normal tubes and ovaries uterus with intact window in midline 1cm x 1.5cm shunt catheter visualized without active drainag e )(Complications: none )( Estimated blood loss (ml): 700 Urine output: 100cc tea-colored Disposition: PACU Counts: Sponge count: correct Instrument count: correct Needle count: correct Wound class: clean-contaminated at 1402 RPT #:[id number] END OF REPORT 2022-07-01 12:47:00-00:00 [facility]) OB Admission / H P REPORT#:[id number] REPORT STATUS: Signed DATE:07/01/22 TIME: 1247 PATIENT: CAITLYN MORALEZ UNIT #: [id number] ROOM/BED: [address] : 88 AGE: 31 SEX: F ATTEND: Caimla Ferreira MD ADM AUTHOR: Sharifa Montoya MD * ALL edits or amendments must be made on the [employer]/computer document * OB History Chief complaint: uterine [...] Past Surgical History: Reports: , D C, 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 Additional Family History non-contributory Alcohol Use [...] B/P Mean 104.0 07/01 1040 B/P 129/88 07/01 1040 Temp 98.4 07/01 1040 Pulse 78 07/01 1040 Resp 17 07/01 1040 Vital Signs Date Temp Pulse Resp B/P B/P Mean Pulse Ox FiO2 07/01 98.4 78 17 129/88 104.0 PATIENT WEIGHT: Weight (lb): 153 Weight (oz): Weight (kg): 69.987158 Physical Exam HEENT: normocephalic w/o injury Lungs: [...] Electronically Signed by Sharifa Montoya MD on at 1323 RPT #:[id number] END OF REPORT 2021-03-05 07:09:00-00:00 [facility] ([facility]) OB Disch REPORT#:[id number] REPORT STATUS: Signed DATE:03/05/21 TIME: 708 PATIENT: CAITLYN MORALEZ UNIT #: [id number] ROOM/BED: [address] : 88 AGE: 30 SEX: F ATTEND: Willis Calderon MD ADM AUTHOR: Breanna Marshall * ALL edits or amendments must be made on the [employer]/computer document * Subjective Subjective Admission EGA: Weeks: [...] Weight (lb): 157 Weight (oz): Weight (kg): 71.370579 Physical Exam Cardiac: normal rhythm Lungs: unlabored [...] Do not Submerge Incision, No Driving, No [place] for 6 Wks, No Lifting >10lbs, No [...] a 2 week appointment at 1114 RPT #:[id number] END OF REPORT 2021-03-04 06:40:00-00:00 [facility] ([facility]) OB Postpart Progr Note REPORT#:[id number] REPORT STATUS: Signed DATE:03/04/21 TIME: 639 PATIENT: CAITLYN MORALEZ UNIT #: [id number] ROOM/BED: [address] : 88 AGE: 30 SEX: F ATTEND: Willis Calderon MD ADM AUTHOR: Maria Calderon MD * ALL edits or amendments must be made on the [employer]/computer document * Subjective Subjective Admission EGA: Weeks: [...] Pulse Resp B/P B/P Pulse O2 O2 Flow FiO2 Mean Ox Delivery Rate 08/ 0412 97.8 64 18 98/58 08/03 2351 98.1 60 18 96/60 08/03 1459 97.4 59 18 102/65 08/03 1327 97.5 71 18 100/65 96 08/03 1245 75.0 08/03 1245 65 18 97/64 98 08/03 1231 73.0 08/03 1231 100/57 08/03 1230 75 32 97 08/03 1218 69.0 08/03 1218 90/58 08/03 1215 71 27 98 08/03 1200 72.0 08/03 1200 68 32 95/58 98 08/03 1145 69.0 08/03 1145 70 17 97/54 97 08/03 1130 [...] Weight (lb): 157 Weight (oz): Weight (kg): 71.433903 Physical Exam Neuro: Exam: alert, oriented x3 [...] PSH - arachnoid cyst fenestration x2, C/P demar nt, c/s, egg retrieval/IVF 6. IVF - s/p nl ech 7. Social - baby Boy! "Meraz" 8. Anticipate dc home POD 2/3, f/u in office in 2w. Assessment: nml progress Plan: routine care Plan discussed with: patient, spouse/partner Electronically Signed by Maria Calderon MD on 11/19 at 0811 RPT #:[id number] END OF REPORT 2021-03-03 10:27:00-00:00 [facility] ([facility]) OB Delivery Note REPORT#:[id number] REPORT STATUS: Signed DATE:03/03/21 TIME: 1027 PATIENT: CAITLYN MORALEZ UNIT #: [id number] [facility] AGE: 30 SEX: F ATTEND: Willis Calderon MD ADM AUTHOR: Maria Calderon MD * ALL edits or amendments must be made on the el [employer]/computer document * OB Delivery Nursing Documentation Review [...] (lb) infant A: Weight (oz) A: Gender infant A: Male 1 minute infant A: 8 5 minutes infant A: 9 10 minutes A: Cord pH obtained infant A: Vacuum time infant A: Vacuum # pulls infant A: Vacuum # popoffs infant A: QBL at delivery: __ Provider comments on imported nursing data: [] Pre-delivery GBS status: GBS status: negative Stella evaluation at delivery: NRP certified pe [facility] Admission EGA: Weeks: 39 Days: 4 EGA [...] to op delivery Mother's condition: mother stable Infant's condition: stable in room Additional comments: After informed [...] suctioned, cord was clamped and cut, and infant was handed off to waiting nurse. Nuchal [...] infant A: Weight (oz) infant A: Gender A: Male 1 minute A: 8 5 minutes infant A: 9 10 minutes A: Cord pH obtained infant A: Vacuum time infant A: Vacuum # pulls infant A: Vacuum # popoffs A: QBL at delivery: __ Provider comments on imported nursing data: [] )(Start date: 03/03/21 )(Start time: 956 )(Pre-procedure diagnosis: Prior c/s x1, h/o arachnoid cyst-peritoneal shun t )(Post-procedure diagnosis: same as pre-procedur e dx )(Procedures performed: repeat low transverse )(Primary Surgeon: Maria Calderon MD )(Anti Tank Missileman(s): SHAHID Gilbert Anesthesiologist: Dr. Andrae Posadas )(Anesthesia: spinal anesthetic Indications: prior c/s x1, cysto-peritoneal shunt )(Operative findings: vigorous male infant in ceph alic presentation, small uterine fibroid present on [...] Calderon MD on 10/19 at 1105 RPT #:[id number] END OF REPORT 2021-03-03 08:39:00-00:00 [facility] ([facility]) Clinical Note REPORT#:[id number] REPORT STATUS: Signed DATE:03/03/21 TIME: 838 PATIENT: CAITLYN MORALEZ UNIT #: [id number] ROOM/BED: [address] : 88 AGE: 30 SEX: F ATTEND: Imelda Calderon MD ADM AUTHOR: Maria Calderon MD * ALL edits or amendments must be made on the el [employer]/computer document * Clinical Note Note: see H [...] nl ech 6. Social - baby Boy! "Meraz" Electronically Signed by Maria Calderon MD on 10/19 at 1038 RPT #:[id number] END OF REPORT
[2022-12-18] MEDS ORDERED: Oxycodone HCl/Acetaminophen 1 TAB TAB ONE (05:11)
[2022-12-18] MEDS ORDERED: KETOROLAC 30 MG/ML INJ ONE (05:12)
[2022-12-18] MEDS ORDERED: ONDANSETRON 4 MG (ODT) TAB ONE (05:12)
--- NOTE | 2022-12-18 06:43 | ER ---
Nurse's Notes [facility] Name: Honey Archibald Age: 31 yrs Sex: Female : 1990 Arrival Date: 12/18/2022 Time: 04:04 Bed 7 Private MD: Diagnosis: Calculus of kidney Presentation: 12/18 04:29 Chief complaint: Patient states: I was here yesterday morning and was discharged with a kd3 kidney stone. I wasn't able to fill my prescription and this morning i and having nausea, vomiting and flank pain. Coronavirus screen: Vaccine status: Patient reports receiving the 2nd dose of the covid vaccine. Ebola Screen: No symptoms or risks identified at this time. Initial Sepsis Screen: Does the patient meet any 2 criteria? No. Patient's initial sepsis screen is negative. Does the patient have a suspected source of infection? No. Patient's initial sepsis screen is negative. Risk Assessment: Do you want to hurt yourself or someone else? Patient reports no desire to harm self or others. Onset of symptoms was December 18, 2022. 04:29 Method Of Arrival: Ambulatory kd3 04:29 Acuity: RAMESH 3 kd3 Triage Assessment: 04:30 General: Appears uncomfortable, Behavior is calm, cooperative. Pain: Complains of pain kd3 in right low back. GI: Reports nausea, vomiting. SECTION [employer]: 06:55 LMP N/A - lg3 Historical: - Allergies: 04:30 No Known Allergies; kd3 - Immunization history:: Adult Immunizations up to date. - Social history:: Smoking status: Patient denies any tobacco usage or history of. Screenin:31 [facility] ED Fall Risk Assessment (Adult) History of falling in the last 3 months, kd3 including since admission No falls in past 3 months (0 pts) Confusion or Disorientation No (0 pts) Intoxicated or Sedated No (0 pts) Impaired Gait No (0 pts) Mobility Assist Device Used No (0 pt) Altered Elimination No (0 pt) Score/Fall Risk Level 0 - 2 = Low Risk Maintained a safe environment. Abuse screen: Denies threats or abuse. Denies injuries from another. Nutritional screening: No deficits noted. Tuberculosis screening: No symptoms or risk factors identified. Assessment: 04:40 General: Appears in no apparent distress. uncomfortable, Behavior is calm, cooperative. lg3 Pain: Complains of pain in right low back Pain does not radiate. Pain currently is 10 out of 10 on a pain scale. Noted to be grimacing, guarding, moaning, resistant to movement. Neuro: No deficits noted. Camacho Agitation-Sedation Scale (RASS): 0 - Alert and Calm Level of Consciousness is awake, alert, obeys commands, Oriented to person, place, time, situation. Cardiovascular: No deficits noted. Denies chest pain, shortness of breath, Capillary refill < 3 seconds Clubbing of nail beds is absent JVD is absent Patient's skin is warm and dry. Respiratory: No deficits noted. Airway is patent Respiratory effort is even, unlabored, Respiratory pattern is regular, symmetrical. GI: Abdomen is flat, non-distended, Reports nausea, vomiting. : Reports cramping, inability to void, pain urgency, urinary frequency. EENT: No deficits noted. No signs and/or symptoms were reported regarding the EENT system. Derm: No deficits noted. No signs and/or symptoms reported regarding the dermatologic system. Skin is intact, is healthy with good turgor, Skin is dry, Skin is normal, Skin temperature is warm. Musculoskeletal: No deficits noted. No signs and/or symptoms reported regarding the musculoskeletal system. Circulation, motion, and sensation intact. Range of motion: intact in all extremities. 05:30 Reassessment: No changes from previously documented assessment. Patient states symptoms lg3 have not improved. 05:30 Neuro: Reports dizziness. lg3 06:35 Reassessment: Patient appears in no apparent distress at this time. No changes from lg3 previously documented assessment. Patient and/or family updated on plan of care and expected duration. Pain level reassessed. Patient is alert, oriented x 3, equal unlabored respirations, skin warm/dry/pink. Neuro:. Vital Signs: 04:29 BP 122 / 94; Pulse 83; Resp 16; Temp 97.8(O); Pulse Ox 99% on R/A; Weight 62.14 kg; kd3 Height 5 ft. 5 in. ; 05:40 BP 129 / 86; Pulse 79; Resp 16 S; Pulse Ox 99% on R/A; lg3 06:34 BP 114 / 76; Pulse 85; Resp 17 S; Pulse Ox 100% on R/A; lg3 04:29 Body Mass Index 22.80 (62.14 kg, 165.1 cm) kd3 ED Course: 04:12 Patient arrived in ED. ag3 04:30 Milan Barrera MD is Attending Physician. bs3 04:30 Triage completed. kd3 04:30 Arm band placed on right wrist. kd3 04:31 Patient has correct armband on for positive identification. Bed in low position. kd3 04:40 Client placed on continuous cardiac and pulse oximetry monitoring. NIBP monitoring lg3 applied. Door closed. Noise minimized. Warm blanket given. Family accompanied patient. 04:43 Nohemi Calderon, RN is Primary Nurse. lg3 06:54 No provider procedures requiring assistance completed. Patient did not have IV access lg3 during this emergency room visit. Administered Medications: 05:15 Drug: oxyCODONE-acetaminophen PO (5 mg-325 mg) 2 tabs Route: PO; lg3 05:15 Drug: Ketorolac IM 30 mg Route: IM; Site: right deltoid; lg3 05:15 Drug: Ondansetron PO 8 mg Route: PO; lg3 Medication: 04:31 VIS not applicable for this client. kd3 Outcome: 06:42 Discharge ordered by . bs3 06:54 Discharged to home via wheelchair, with significant other. lg3 06:54 Condition: stable 06:54 Discharge instructions given to patient, Instructed on discharge instructions, follow up and referral plans. medication usage, Demonstrated understanding of instructions, follow-up care, medications, Prescriptions given X 1. 06:55 Patient left the ED. lg3 Signatures: Lulú Meneses 3 Nohemi Calderon RN RN lg3 Мария Smith RN RN kd3 Milan Barrera MD MD bs3 Corrections: (The following items were deleted from the chart) 06:36 05:30 Reassessment: No changes from previously documented assessment. Patient states lg3 symptoms have not improved. lg3 06:37 05:30 Neuro: Reports dizziness, lg3 lg3
--- NOTE | 2022-12-18 06:43 | EDPHYS ---
Physician Documentation [facility] Name: Honey Archibald Age: 31 yrs Sex: Female : 1990 Arrival Date: 12/18/2022 Time: 04:04 Bed 7 Private MD: ED Physician Milan Barrera HPI: 12/18 04:56 This 31 yrs old Female presents to ER via Ambulatory with complaints of bs3 Nausea/Vomiting. 04:56 This is a 31-year-old female seen approximately 15 hours ago diagnosed with a kidney bs3 stone presents with recurrent pain and nausea she notes that she was unable to fill her prescriptions last night for is hoping to get something to tide her over she denies any fevers or chills her pain is in the right flank nonradiating nothing makes it better or worse it is severe in intensity. SERVICE SPECIALIST: 06:55 LMP N/A - lg3 Historical: - Allergies: 04:30 No Known Allergies; kd3 - Immunization history:: Adult Immunizations up to date. - Social history:: Smoking status: Patient denies any tobacco usage or history of. ROS: 04:56 Constitutional: Negative for fever, chills bs3 04:56 All other systems are negative. Exam: 04:56 Constitutional: Patient appears in moderate pain Head/Face: Normocephalic, bs3 atraumatic. Eyes: Pupils equal round and reactive to light, extra-ocular motions intact. Lids and lashes normal. ENT: mmm, no posterior phyarngeal erythema Chest/axilla: Normal chest wall appearance and motion. Nontender with no deformity. No lesions are appreciated. Cardiovascular: Regular rate and rhythm with a normal S1 and S2. symmetric pulses in upper extremities Abdomen/GI: Soft, non-tender, no rebound or guarding Back: no spinal tenderness, pt holding right flank MS/ Extremity: Pulses equal, no cyanosis. Neurovascular intact. Full, normal range of motion. Neuro: Awake and alert, GCS 15, oriented to person, place, time, and situation. Cranial nerves II-XII grossly intact. Motor strength 5/5 in all extremities. Sensory grossly intact. Psych: Awake, alert, with orientation to person, place and time. Behavior, mood, and affect are within normal limits. Vital Signs: 04:29 BP 122 / 94; Pulse 83; Resp 16; Temp 97.8(O); Pulse Ox 99% on R/A; Weight 62.14 kg; kd3 Height 5 ft. 5 in. ; 05:40 BP 129 / 86; Pulse 79; Resp 16 S; Pulse Ox 99% on R/A; lg3 06:34 BP 114 / 76; Pulse 85; Resp 17 S; Pulse Ox 100% on R/A; lg3 04:29 Body Mass Index 22.80 (62.14 kg, 165.1 cm) kd3 MDM: 04:30 Patient medically screened. bs3 04:56 Data reviewed: vital signs, nurses notes. ED course: Patient with likely pain secondary bs3 to her known 7 mm distal kidney stone she was unable to fill her prescription last night we will treat pain we will treat nausea will prescribe Flomax, advised return prec for fever, chills, intractable pain despite taking prescribed medications. . 06:41 ED course: Patient reassessed she is feeling much better we had a shared bs3 decision-making conversation the patient wanted to try to go home she was instructed to return with recurrent pain given the size of her stone she is at high risk of it being unable to pass. Administered Medications: 05:15 Drug: oxyCODONE-acetaminophen PO (5 mg-325 mg) 2 tabs Route: PO; lg3 05:15 Drug: Ketorolac IM 30 mg Route: IM; Site: right deltoid; lg3 05:15 Drug: Ondansetron PO 8 mg Route: PO; lg3 Disposition Summary: 12/18/22 06:42 Discharge Ordered Location: Home bs3 Problem: an acute exacerbation bs3 Symptoms: have improved bs3 Condition: Stable bs3 Diagnosis - Calculus of kidney bs3 Followup: bs3 - With: Private Physician - When: 2 - 3 days - Reason: Re-evaluation by your physician Discharge Instructions: - Discharge Summary Sheet bs3 - Renal Colic, [id number] bs3 Forms: - Medication Reconciliation Form bs3 - Thank You Letter bs3 - Antibiotic Education bs3 - Prescription Opioid Use bs3 Prescriptions: - tamsulosin 0.4 mg Oral capsule - take 1 capsule by ORAL route daily for 14 days; 14 capsule; Refills: 0, Product bs3 Selection Permitted Signatures: Nohemi Calderon RN RN 3 Мария Smith RN RN kd3 Milan Barrera MD MD bs3
[2022-12-18 07:15] VITALS: TEMP 97.8
[2022-12-18 07:17] VITALS: BP 114/76; O2SAT 100
== END 2022-12-18 06:55 | disposition home or self-care (01) ==
LOC: ER 04:04
DX: N20.0 Calculus of kidney (principal)
CPT/HCPCS: Q0162

== ENCOUNTER 2023-06-06 08:21 | Emergency (ER) | payer OTHER ==
--- OUTSIDE RECORDS SUMMARY | 2023-06-06 08:39 | XMS REPORT | Continuity of Care Document ---
:1990 Author Organization [facility] t Address [address] [address] [place] [address] Care Team Providers Name Role Phone KELLEE STOKES Attending Clinician Unavailable Maria Calderon Attending Clinician Unavailable Kellee Stokes Attending Clinician VISIT, NURSE UABINH Attending Clinician Unavailable Camila Ferreira Attending Clinician Unavailable [email or web address] Attending Clinician Unavailable Iveth De La Garza Attending Clinician Unavailable Doctor Unassigned, [place] Attending Clinician Unavailable Raisa Gotti Attending Clinician Feliciano Aguilar Attending Clinician Chanel Foy Attending Clinician Deonte Arana Attending Clinician Indio ePrez Attending Clinician Maria Calderon Admitting Clinician Unavailable Camila Ferreira Admitting Clinician Unavailable [email or web address] Admitting Clinician Unavailable Chanel Foy Admitting Clinician Feliciano Aguilar Admitting Clinician Payers Payer Name Policy Type Policy Number Effective Date Expiration Date Cody GOODEN [id number] 2017 00:00:00 (POS II) Problems Condition Condition Condition Status Onset Resolution Last Treating Co mments Source Name Details Category Date Date Treatment Clinician Date N20.0 N20.0 Diagnosis Active 2023-04-21 Mem oria Active 04-13 09:14:00 l 04/13/2023 00:00: Sundeep n [facility] 00 [place] Infertilit Infertilit Disease Active U nivers y y 7-05 ity of associated associated 00:00: [place] with with 00 Medical anovulatio anovulatio Br anch n n 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 7 [place] of of cerv[place] (JENNIFER III[place] (JENNIFER III) 00 [facility] High 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 [place] infection [place] [facility] [place] Hemorrhoid Hemorrhoid Disease Active Overview : Univers s, s, 3-19 Added ity of unspecifie unspecifie 00:00: automatic [place] d d 00 ally from Medical hemorrhoid hemorrhoid request B ranch type type for surgery [id number] Heart Heart Disease Active Univers palpitatio palpitatio 04-17 it y of ns ns 00:00: [place] 00 Medical Branch Disease Active Uni vers resulting resulting 02-26 ity of from in from in 00:00: [place] vitro vitro 00 Medical fertilizat fertilizat Br anch ion, ion, antepartum antepartum Presence Presence Disease Active Unive rs of of 7 ity of intracrani intracrani 00:00: [place] shunt al shunt 00 [facility] History of History of Disease Active U nivers brain brain 02-23 ity of shunt shunt 00:00: [place] 00 [facility] 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 02-23 ity of 00:00: [place] 00 [facility] G91.0 - G91.0 - Diagnosis Active 2015-11-28 Memoria COMMUNICAT COMMUNICAT 3- 16:42:00 l ING ING 00:01: [place] 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 10/02/2015 OPIAmy Sorenson 348.0 - 348.0 - Diagnosis Active 2015-04-28 Memoria CEREBRAL CEREBRAL 04-23 10:25:00 l CYSTS CYSTS 00:01: [place] 331.3 - 331.3 - 00 COMMUNICA COMMUNICA Active 04/23/2015 ASHANTI Sorenson BENIGN BENIGN Diagnosis Active 2014-11-05 Me moria TUMOR TUMOR 10-01 21:47:00 l CHOROID CHOROID 00:00: [place] Active 00 10/01/2014 [facility] 789.39 - 789.39 - Diagnosis Active 2014-11-23 Memoria ABDMNAL ABDMNAL 2 16:35:00 l MASS OT MASS OT 00:01: [place] 625.8 - 625.8 - 00 FEM GEN FEM GEN Active 09/20/2014 OPIAmy Camacho HYDROCEPHA Diagnosis Active 2013-082014-07-15 Memoria TRINO, ICD HYDROCEPHA 1-14 08:45:00 l 9- 331.3 TRINO, ICD 00:00: Sundeep mitchell 9- 331.3 00 Active 06/14/2014 [facility] HYDROCEPHA HYDROCEPH Diagnosis Active 2013-082014-06-17 Memoria TRINO ALUS 1-14 12:18:00 l Active 00:00: [place] 06/14/2014 00 [facility] Communicat Communica Problem Active 2013-082016-04-30 Memoria ing ting 08-06 01:38:20 l hydrocepha hydrocepha 00:00: Jaiden pierce trino trino 00 (disorder) (disorder) Active 06/06/2014 Problem 04/30/2016 Data migrated from [facility] on 03/25/15. ASHANTI Sorenson, ASHANTI [place] HEADACHE HEADACHE Diagnosis Active 2013-082014-05-15 Memoria Active - 13:10:00 l 05/15/2014 00:00: Sundeep mitchell [address], [place] PSEUDOTUMO PSEUDOTUM Diagnosis Active 2012-082013-06-05 Memoria R OR Active 08-01 08:08:00 l 06/01/2013 00:00: Sundeep mitchell [address] HYDROCEPHA HYDROCEPH Diagnosis Active 2012-082013-06-01 Memoria TRINO, ALUS, 15:11:00 l VOMITING VOMITING 00:00: Sundeep mitchell Active 00 05/31/2013 [facility] VOMITING VOMITING Diagnosis Active 2012-082013-05-31 Memoria Active 19:00:00 l 05/31/2013 00:00: Sundeep mitchell [address] SEIZURES, SEIZURES, Diagnosis Active 2013-05-10 Memoria ARCHNOID ARCHNOID 03-29 21:36:00 l CYST CYST 00:00: [place] ICD-9# ICD-9# 00 345.41, 3 345.41, 3 Active 03/29/2013 [facility] SEIZURES, SEIZURES, Diagnosis Active 2013-04-12 Memoria ARCHNOID ARCHNOID 03-29 13:43:00 l CYST CYST 00:00: [place] Active 00 03/29/2013 [facility] EMU 23HR EMU 23HR Diagnosis Active 2013-04-03 Memoria EEG-STARIN EEG-STARIN 03-23 09:24:00 l G SPELLS G SPELLS 00:00: Sundeep mitchell Active 00 03/23/2013 [facility] Arachnoid Arachnoid Problem Active 2016-04-30 Memoria cyst cyst 03-01 01:38:20 l (disorder) (disorder) 00:00: Jaiden pierce Active 00 03/01/2013 Problem 04/30/2016 Data migrated from [facility] on 03/25/15. [facility], ASHANTI Sorenson, Marisol Fan Final: Final: Problem 2014-11-02 Grant elise 11/02/2014 15:26:41 l [facility] Acute pain Acute Problem Active 2016-04-30 M emoria (finding) pain 01:38:20 l (finding) [place] Active Problem 04/30/2016 [facility], ASHANTI Sorenson, Marisol Fan COMMUNICAT Diagnosis Active 2014-07-15 Memoria HYDROCEPHA COMMUNICAT 08:45:00 l TRINO HYDROCEPHA Sundeep n TRINO Active [facility] PSYMOTR PSYMOTR Diagnosis Active 2013-05-10 Memoria EPIL W EPIL W 21:36:00 l INTR EPIL INTR EPIL Herm dorothy Active [facility] CEREBRAL CEREBRAL Diagnosis Active 2013-05-10 Memoria CYSTS CYSTS 21:36:00 l Active Sundeep n [facility] CONVULSION CONVULSIO Diagnosis Active 2013-04-03 Memoria S NEC NS NEC 09:24:00 l Active [facility] BENIGN BENIGN Diagnosis Active 2014-11-05 Me moria NEOPLASM NEOPLASM 21:47:00 l CHOROID CHOROID [place] Active [facility] Kidney Kidney Problem Active 2023-05-26 Grant elsie stone stone 10:57:21 l (disorder) (disorder) He rmann Active Problem 05/26/2023 [facility], ASHANTI Sorenson, ASHANTI Saini,[facility] [place] Headache Headache Problem Active 2023-05-26 Memoria (finding) (finding) 10:57:21 l Active [place] Problem 05/26/2023 [facility], ASHANTI Sorenson, ASHANTI Saini,M [facility] Cyst of Cyst of Problem Active 2023-03-04 Me moria ovary ovary 07:26:54 l (disorder) (disorder) He rmann Active Problem 03/04/2023 [facility], ASHANTI Sorenson, ASHANTI Saini,M [facility] Flank pain Flank Problem Active 2023-05-26 M nella (finding) pain 10:57:21 l (finding) Delta Active Problem 05/26/2023 [facility] Time Share N20.0 - N20.0 - Diagnosis Active 2023-01-07 Memoria CALCULUS CALCULUS 14:22:00 l OF KIDNEY OF KIDNEY Herm dorothy N20.1 - N20.1 - CALCU CALCU Active ASHANTI Saini N20.0 - N20.0 - Diagnosis Active 2023-05-23 Memoria CALCULUS CALCULUS 13:51:00 l OF KIDNEY OF KIDNEY Herm dorothy Active ASHANTI Saini History of Past Illness Condition Condition Condition Status Onset Resolution Last Treating Co mments Source Name Details Category Date Date Treatment Clinician Date Discharge Discharge Problem 2013-082014-05-09 2014-05-09 Mempreeti Diagnosis: Diagnosis: 0-06 05:27:44 05:27:44 l Headache Headache 05:00: Sundeep n 05/06/2014 00 05/09/2014 [place] Allergies, Adverse Reactions, Alerts Allergy Allergy Status Severity Reaction(s) Onset Inactive Treating Comm ents Source Name Type Date Date Clinician No Known DA Active [facility] [place] No Known DA Active [facility]ie 03-[facility] [place] Animal Propensi Active Hives Univers Dander ty to 04-13 ity of adverse 00:00: [place] reaction 00 Medical s Branch No Known No Known Active Memori a Medicati Medicati l on on [place] Allergie Allergie s s Social History Social Habit Start Date Stop Date Quantity Comments Source Alcohol intake [facility] [place] [facility] Sex Assigned [facility] Social History 2014-10-29 2014-10-29 [facility] 12:22:21 12:22:21 Smoking Status Start Date Stop Date Source Tobacco smoking status [facility] Medications Ordered Filled Start Stop Current Ordering Indication Dosage Frequency Signature Comments Components Source Medication Medication Date Date Medication? Clinician (SIG) Name Name Gamal 100 Yes 100 mg = 1 M emoria mg oral 9-21 cap, PO, l capsule 17:05: BID, # 60 Randi nn 00 cap, 0 Refill(s), Pharmacy: [facility] [id number], 165.1, cm, 04/14/23 9:02:00 CDT, Height, 59.091, kg, 04/14/23 9:02:00 CDT, Weight tramadol 50 Yes 50 mg = 1 M emoria mg oral 9-21 tab, PO, l tablet 17:05: Q8H, PRN [place] 00 Pain, X 5 day, # 15 tab, 0 Refill(s), Pharmacy: [facility] [id number], 165.1, cm, 04/14/23 9:02:00 CDT, Height, 59.091, kg, 04/14/23 9:02:00 CDT, Weight Yes = 1 tab, Memor ia Multivitami 6-19 PO, Daily, l ns with 18:57: 0 [place] Folic Acid 00 Refill(s) 1.24 mg and Docusate oral capsule loratadine Yes = 1 tab, Mem oria 10 mg oral 6-19 PO, Daily, l capsule 18:57: 0 [place] 00 Refill(s) HYDROmorphO Yes [id number] 2mg Take 1 Univers ne 4-02 tablet by madhavi of (DILAUDID) 00:00: mouth [place] 2 mg tablet 00 every 6 Medic al (six) Branch hours as needed for Pain (scale 7-10). ibuprofen Yes Special Memor ia 600 mg oral 4-02 Instructio l tablet 12:45: ns: take [place] 00 with food docusate Yes 100 mg = [...] 4-02 Instructio l tablet 12:45: ns: take [place] 00 with food docusate Yes 100 mg = [...] Yes Special Memor ia 600 mg oral 10-31 Instructio l tablet 12:45: ns: take [place] 00 with food docusate Yes 100 mg = 1 Mem oria sodium 100 -02 cap, PO, l mg oral 12:45: BID, [...] / 10-30 (Same as: l Hydrocodone 19:49: [place] Randi nn Bitartrate 00 325/5) Do 5 MG Oral not exceed Tablet 4gm/day of [[place] acetaminop 5/325] hen. Acetaminoph No Notes: Grant elise en 325 MG / 10-30 (Same as: l Hydrocodone 19:49: [place] Randi nn Bitartrate 00 325/5) Do 5 MG Oral not exceed Tablet 4gm/day of [[place] acetaminop 5/325] hen. Acetaminoph No Notes: Grant elise en 325 MG / 10-30 (Same as: l Hydrocodone 19:49: [place] Randi nn Bitartrate 00 325/5) Do 5 MG Oral not exceed Tablet 4gm/day of [[place] acetaminop 5/325] hen. Acetaminoph No Notes: Grant elise en 325 MG / 10-30 (Same as: l Hydrocodone 19:49: [place] Randi nn Bitartrate 00 325/5) Do 5 MG Oral not exceed Tablet 4gm/day of [[place] acetaminop 5/325] hen. benzocaine- No Notes: Grant elise menthol 4- Cepacol l topical 19:35: lozenges Sundeep n 00 Dispense 1 box = 16 lozenges (Same As: Cepacol Lozenges) benzocaine- No Notes: Grant elise menthol 4- Cepacol l topical 19:35: lozenges Sundeep n 00 Dispense 1 box = 16 lozenges (Same As: Cepacol Lozenges) benzocaine- No Notes: Grant elise menthol 4- Cepacol l topical 19:35: lozenges Sundeep n 00 Dispense 1 box = 16 lozenges (Same As: Cepacol Lozenges) benzocaine- No Notes: Grant elise menthol 4- Cepacol l topical 19:35: lozenges Sundeep n 00 Dispense 1 box = 16 lozenges (Same As: Cepacol Lozenges) Cepacol No 1 lozenge, Grant elise Lozenge 4- Route: l 19:33: MUCOUS [place] 00 MEM, Q2H, Drug form: SAMINA, PRN Sore Throat, Start date: 10/30/14 14:33:00, Duration: 30 day, Stop date: 11/29/14 14:32:00 Cepacol No 1 lozenge, Grant elise Lozenge - Route: l 19:33: MUCOUS [place] 00 MEM, Q2H, Drug form: SAMINA, PRN Sore Throat, Start date: 10/30/14 14:33:00, Duration: 30 day, Stop date: 11/29/14 14:32:00 Cepacol No 1 lozenge, Grant elise Lozenge - Route: l 19:33: MUCOUS [place] 00 MEM, Q2H, Drug form: SAMINA, PRN [...] (Same as: Proventil) Benadryl No Notes: Memoria 4- (Same as: l 12:03: Benadryl) [place] Benadryl No Notes: Memoria 4- (Same as: l 12:03: Benadryl) [place] Benadryl No Notes: Memoria 4- (Same as: l 12:03: Benadryl) [place] Benadryl No Notes: Memoria 4-01 (Same as: l 12:03: Benadryl) [place] Benadryl No Notes: Memoria 4- (Same as: l 12:01: Benadryl) [place] Benadryl No Notes: Memoria 4-01 (Same as: l 12:01: Benadryl) [place] Benadryl No Notes: Memoria 4- (Same as: l 12:01: Benadryl) [place] Benadryl No Notes: Memoria 4- (Same as: l 12:01: Benadryl) [place] sennosides, No Notes: Grant elise LONGTERM 4- (Same as: l 02:00: Senokot) noside No Notes: Grant elise LONGTERM 4- (Same as: l 02:00: Senokot) nosides No Notes: Grant elise LONGTERM 4- (Same as: l 02:00: Senokot) noside No Notes: Grant elise LONGTERM 4- (Same as: l 02:00: Senokot) Acetaminoph No 1-2 tab, Me moria en 325 MG / 3-31 PO, Q4-6H, l Hydrocodone 22:25: PRN Pain He [place] Bitartrate 00 5 MG Oral Tablet [[place] 5/325] Diphenhydra No 25 mg = 1 M emoria mine 3-31 tab, PO, l Hydrochlori 22:25: Bedtime Her raya de 25 MG 00 Oral Tablet [Benadryl] Acetaminoph No 1-2 tab, Me moria en 325 MG / 3-31 PO, Q4-6H, l Hydrocodone 22:25: PRN Pain He rmann Bitartrate 00 5 MG Oral Tablet [[place] 5/325] Diphenhydra No 25 mg = 1 M emoria mine 3-31 tab, PO, l Hydrochlori 22:25: Bedtime Her raya de 25 MG 00 Oral Tablet [Benadryl] Acetaminoph No 1-2 tab, Me moria en 325 MG / 3-31 PO, Q4-6H, l Hydrocodone 22:25: PRN Pain He rmann Bitartrate 00 5 MG Oral Tablet [[place] 5/325] Diphenhydra No 25 mg = 1 M emoria mine 3-31 tab, PO, l Hydrochlori 22:25: Bedtime Her raya de 25 MG 00 Oral Tablet [Benadryl] Acetaminoph No 1-2 tab, Me moria en 325 MG / 3-31 PO, Q4-6H, l Hydrocodone 22:25: PRN Pain He rmann Bitartrate 00 5 MG Oral Tablet [[place] 5/325] Diphenhydra No 25 mg = 1 M emoria mine 3-31 tab, PO, l Hydrochlori 22:25: Bedtime Her raya de 25 MG 00 Oral Tablet [Benadryl] Docusate No Notes: Memoria 3-31 (Same as: l 22:00: Colace) [place] 00 (Do Not Crush) Docusate No Notes: Memoria 3-31 (Same as: l 22:00: Colace) [place] 00 (Do Not Crush) Docusate No Notes: Memoria 3-31 (Same as: l 22:00: Colace) [place] 00 (Do Not Crush) Docusate No Notes: Memoria 3-31 (Same as: l 22:00: Colace) [place] (Do Not Crush) vancomycin No 2001 mg: Me moria 3-31 infuse l 21:00: over 2.5 [place] 00 hours vancomycin No 2001 mg: Me moria 3-31 infuse l 21:00: over 2.5 [place] 00 hours vancomycin No 2001 mg: Me moria 3-31 infuse l 21:00: over 2.5 [place] 00 hours vancomycin No 2001 mg: Me moria 3-31 infuse l 21:00: over 2.5 [place] 00 hours Cefoxitin No Notes: Memori a [...] 00 conc = 0.5 mg/ml Hydromorph one RN COMPLEX CARE Dose: ;Delay: ;Basal: celecoxib No Notes: Memori a 3-31 NSAID. l 17:00: Please [place] 00 check indication . Not for seizure. (Same As: CeleBREX ) Acetaminoph No Notes: Grant elise en 3-31 Infuse l 17:00: over 15 [place] 00 minutes Do not exceed 4gm/day of acetaminop hen pregabalin No Notes: Memor ia 3-31 (Same as: l 17:00: Lyrica) [place] Tramadol No Notes: Not Mem oria 3-31 to exceed l 17:00: 400mg/day. [place] 00 (Same As: Ultram) Hydromorpho No Notes: Grant elise ne 3-31 (Same as: l 17:00: Dilaudid) [place] 00 conc = 0.5 mg/ml Hydromorph one RN COMPLEX CARE Dose: ;Delay: ;Basal: celecoxib No Notes: Memori a 3-31 NSAID. l 17:00: Please [place] 00 check indication . Not for seizure. (Same As: CeleBREX ) Acetaminoph No Notes: Grant elise en 3-31 Infuse l 17:00: over 15 [place] 00 minutes Do not exceed 4gm/day of acetaminop hen pregabalin No Notes: Memor ia 3-31 (Same as: l 17:00: Lyrica) [place] 00 Tramadol No Notes: Not Mem oria 3-31 to exceed l 17:00: 400mg/day. [place] 00 (Same As: Ultram) Hydromorpho No Notes: Grant elise ne 3-31 (Same as: l 17:00: Dilaudid) [place] 00 conc = 0.5 mg/ml Hydromorph one RN COMPLEX CARE Dose: ;Delay: ;Basal: celecoxib No Notes: Memori a 3-31 NSAID. l 17:00: Please [place] 00 check indication . Not for seizure. [...] Dilaudid) conc = 0.5 mg/ml Hydromorph one RN COMPLEX CARE Dose: ;Delay: ;Basal: celecoxib No Notes: Memori [...] 17:00: 400mg/day. [place] 00 (Same As: Ultram) Naloxone No Notes: Memoria 3-31 Same as l 16:49: Narcan Naloxone No Notes: Memoria 3-31 Same as l 16:49: Narcan [place] 00 Naloxone No Notes: Memoria 3-31 Same as [...] (total dose = 30 mL [266 mg]) Expare No Notes: [facility] 10-29 (Same as: 16:: [facility] [place] 00 NOT FOR IV use Postoperat ismon analgesia: Infiltrati on (local): Dose is based [...] (total dose = 30 mL [266 mg]) [facility] as: [facility]: [facility] [place] 00 NOT FOR IV use Postoperat [...] (total dose = 30 mL [266 mg]) [facility] No Notes: [facility] 10-29 (Same as: 16:02: [facility] [place] 00 NOT FOR IV use Postoperat simon [...] a 3-31 (Same As: l 15:00: Ancef, [place] 00 Kefzol) Cefazolin No Notes: Memori a 3-31 (Same As: l 15:00: Ancef, [place] 00 Kefzol) Cefazolin No Notes: Memori a 3-31 (Same As: l 15:00: Ancef, [place] 00 Kefzol) Cefazolin No Notes: Memori a 3-31 (Same As: l 15:00: Ancef, [place] 00 Kefzol) Docusate No Notes: Memoria 3-31 (Same as: l 14:50: Colace) [place] 00 (Do Not Crush) Naloxone No Notes: Memoria 3-31 (Same as: l 14:50: Narcan) acetaminoph No Notes: Do M emoria en-codeine 3-31 not exceed l #3 14:50: 4gm/day of acetaminop hen. (Same as: Tylenol with Codeine # 3) Calcium No 1,000 mL, Memor ia Chloride 3 Rate: 125 l 0.002 14:50: ml/hr, [place] MEQ/ML / 00 Infuse Glucose 50 over: [...] Memoria 3-31 (Same as: l 14:50: Narcan) [place] acetaminoph No Notes: Do M emoria en-codeine [...] elise 3-31 (Same as: l 14:50: Zofran) [place] 00 Docusate No Notes: Memoria 3-31 (Same as: l 14:50: Colace) (Do Not Crush) Naloxone No Notes: Memoria 3-31 (Same as: l 14:50: Narcan) [place] 00 acetaminoph No Notes: Do M emoria en-codeine 3-31 not exceed l #3 14:50: 4gm/day of [place] acetaminop hen. (Same as: Tylenol with Codeine [...] elise 3-31 (Same as: l 14:50: Zofran) Diphenhydra No Notes: Grant elise mine 3-31 (Same as: l 14:50: Benadryl) Ondansetron No Notes: Grant elise 3-31 (Same as: l 14:50: Zofran) Docusate No Notes: Memoria 3-31 (Same as: l 14:50: Colace) [place] 00 (Do Not Crush) Naloxone No Notes: Memoria 3-31 (Same as: l 14:50: Narcan) acetaminoph No Notes: Do M emoria en-codeine 3- not exceed l #3 14:50: 4gm/day of acetaminop hen. (Same as: Tylenol with Codeine # 3) Calcium No 1,000 mL, Memor ia Chloride 10-29 Rate: 125 l 0.002 14:50: ml/hr, [place] MEQ/ML / 00 Infuse Glucose 50 over: 8 MG/ML / hr, Route: Potassium IV, Dosing Chloride Weight 0.004 52.273 kg, MEQ/ML / Total Sodium Volume: Chloride 1,000, 0.147 Start MEQ/ML date: Injectable 10/29/14 Solution 9:50:00, Duration: 30 day, Stop date: 11/28/14 9:49:00 Ondansetron No Notes: Grant elise 3-31 (Same as: l 14:17: Zofran) Flumazenil No Notes: Memor ia 3-31 (Same as: l 14:17: Romazicon) Promethazin No Notes: Do M emoria e 3- not give l 14:17: IV push. [place] 00 (Same as: Phenergan) Naloxone No Notes: Memoria 3-31 (Same as: l 14:17: Narcan) Fentanyl No Notes: Memoria 3-31 (Same as: l 14:17: Sublimaze) [place] 00 Preservati ve free. Hydromorpho No Notes: [...] 3-31 not give l 14:17: IV push. [place] 00 (Same as: Phenergan) Naloxone No Notes: Memoria 3-31 (Same as: l 14:17: Narcan) Fentanyl No Notes: Memoria 3-31 (Same as: l 14:17: Sublimaze) [place] 00 Preservati ve free. Hydromorpho No Notes: [...] 3-31 not give l 14:17: IV push. [place] 00 (Same as: Phenergan) Naloxone No Notes: Memoria 3-31 (Same as: l 14:17: Narcan) Fentanyl No Notes: Memoria 3-31 (Same as: l 14:17: Sublimaze) [place] 00 Preservati ve free. Hydromorpho No Notes: [...] ia 3-31 (Same as: l 14:17: Romazicon) [place] 00 Promethazin No Notes: Do M emoria e 3-31 not give l 14:17: IV push. [place] 00 (Same as: Phenergan) Naloxone No Notes: Memoria 3-31 (Same as: l 14:17: Narcan) Fentanyl No Notes: Memoria 3-31 (Same as: l 14:17: Sublimaze) [place] 00 Preservati ve free. Hydromorpho No Notes: Grant elise ne 3-31 Same as: l 14:17: Dilaudid Labetalol 2014-0 No 10 mg, 2 Grant elise 3-31 mL, Route: l 14:17: IVP, Drug form: INJ, Q5Min, Dosing Weight 52.273, kg, PRN Elevated BP, Start date: 10/29/14 9:17:00, Duration: 5 doses or times, Stop date: 10/30/14 0:00:00 Hydralazine 2014-0 No Notes: Grant elise 3-31 (Same as: l 14:17: Apresoline ) Push over 5 minutes Ancef 2014-0 No 2 gm, Memoria 3-31 Route: l 12:42: IVPB, [place] 00 ONCE, Dosing Weight 52.273, kg, Start date: 10/29/14 7:42:00, Duration: 1 doses or times, Stop date: 10/29/14 7:42:00 Ancef 2015-0 No 2 gm, Memoria 3-31 Route: l 12:42: IVPB, [place] 00 ONCE, Dosing Weight 52.273, kg, Start date: 10/29/14 7:42:00, Duration: 1 doses or times, Stop date: 10/29/14 7:42:00 Ancef 2015-0 No 2 gm, Memoria 3-31 Route: l 12:42: IVPB, [place] 00 ONCE, Dosing Weight 52.273, kg, Start date: 10/29/14 7:42:00, Duration: 1 doses or times, Stop date: 10/29/14 7:42:00 Ancef 2015-0 No 2 gm, Memoria 3-31 Route: l 12:42: IVPB, [place] 00 ONCE, Dosing Weight 52.273, kg, Start date: 10/29/14 7:42:00, Duration: 1 doses or times, Stop date: 10/29/14 7:42:00 ceFAZolin 2014-0 No Notes: Memori a 3-31 (Same As: l 11:00: Ancef, [place] Kefzol) ceFAZolin 2014-0 No Notes: Memori a 3-31 (Same As: l 11:00: Ancef, [place] Kefzol) ceFAZolin 2015-0 No Notes: Memori a 3-31 (Same As: l 11:00: Ancef, [place] 00 Kefzol) ceFAZolin No Notes: Memori a [...] Q4-6H, l Hydrocodone 12:06: Pain, # 90 [place] Bitartrate 00 tab, 0 10 MG Oral Refill(s), Tablet given to [[place] patient ] Docusate 2013-08 Yes 100 mg = 1 Mem oria Sodium 100 2-16 cap, PO, l MG Oral 12:06: Q12H, # 90 Herm dorothy Capsule 00 cap, 0 Refill(s) Acetaminoph 2013-08 Yes 1-2 tab, Me moria en 325 MG / 2-16 PO, Q4-6H, l Hydrocodone 12:06: Pain, # 90 [place] Bitartrate 00 tab, 0 10 MG Oral Refill(s), Tablet given to [[place] patient ] Docusate 2013-08 Yes 100 mg = 1 Mem oria Sodium 100 2-16 cap, PO, l MG Oral 12:06: Q12H, # 90 Herm dorothy Capsule 00 cap, 0 Refill(s) Acetaminoph 2013-08 Yes 1-2 tab, Me moria en 325 MG / 2-16 PO, Q4-6H, l Hydrocodone 12:06: Pain, # 90 [place] Bitartrate 00 tab, 0 10 MG Oral Refill(s), Tablet given to [[place] patient ] Docusate 2013-08 Yes 100 mg = 1 Mem oria Sodium 100 2-16 cap, PO, l MG Oral 12:06: Q12H, # 90 Herm dorothy Capsule 00 cap, 0 Refill(s) Acetaminoph 2013-08 Yes 1-2 tab, Me moria en 325 MG / 2-16 PO, Q4-6H, l Hydrocodone 12:06: Pain, # 90 [place] Bitartrate 00 tab, 0 10 MG Oral Refill(s), Tablet given to [[place] patient ] Cepacol 2013-08 No Notes: Memoria Sore Throat 2-16 Cepacol l 06:13: lozenges [place] 00 Dispense 1 box = 16 lozenges [...] Notes: Memoria 2-16 Chlorasept l 06:10: ic Francis [place] 00 (Same as: Chlorasept ic, Sore Throat Francis) phenol 2013-08 No Notes: Memoria 2-16 Chlorasept l 06:10: ic Francis [place] 00 (Same as: Chlorasept ic, Sore Throat Francis) phenol 2013-08 No Notes: Memoria 2-16 Chlorasept l 06:10: ic Francis [place] 00 (Same as: Chlorasept ic, Sore Throat Francis) phenol 2013-08 No Notes: Memoria 2-16 Chlorasept l 06:10: ic Francis [place] 00 (Same as: Chlorasept ic, Sore Throat Francis) Cepacol 2013-08 No 1 lozenge, Grant elise Lozenge 2-16 Route: l 06:09: MUCOUS [place] 00 MEM, Q2H, Drug form: SAMINA, PRN Sore Throat, Start date: 07/16/14 0:09:00, Duration: 30 day, Stop date: 08/15/14 0:08:00 Cepacol 2013-08 No 1 lozenge, [place] elise Lozenge 2-16 Route: l 06:09: MUCOUS [place] 00 MEM, Q2H, Drug form: SAMINA, PRN [...] Grant elise 2-15 Route: l 20:09: IVPB, [place] 00 ONCE, Dosing Weight 52.273, kg, PRN Nausea & Vomiting, Start date: 07/15/14 14:09:00, Stop date: 08/14/14 14:08:00 Phenergan 2013-08 No 12.5 mg, [place] elise 2-15 Route: l 20:09: IVPB, [place] 00 ONCE, Dosing Weight 52.273, kg, PRN Nausea & Vomiting, Start date: 07/15/14 14:09:00, Stop date: 08/14/14 14:08:00 Phenergan 2013-08 No 12.5 mg, Grant elise 2-15 Route: l 20:09: IVPB, [place] 00 ONCE, Dosing Weight 52.273, kg, PRN Nausea & Vomiting, Start date: 07/15/14 14:09:00, Stop date: 08/14/14 14:08:00 Dexamethaso 2013-08 No Notes: Grant elise ne 2-15 Concentrat l 18:00: ion: [place] 00 4mg/ml Acetaminoph 2013-08 No Notes: Do M emoria en 325 MG / 2-15 not exceed l Hydrocodone 18:00: 4gm/day of [place] Bitartrate 00 acetaminop 10 MG Oral hen. (Same Tablet as: [place] 325/10) Dexamethaso 2013-08 No Notes: Grant elise ne 2-15 Concentrat l 18:00: ion: [place] 00 4mg/ml Acetaminoph 2013-08 No Notes: Do M emoria en 325 MG / 2-15 not exceed l Hydrocodone 18:00: 4gm/day of [place] Bitartrate 00 acetaminop 10 MG Oral hen. (Same Tablet as: [place] 325/10) Dexamethaso 2013-08 No Notes: Grant elise ne 2-15 Concentrat l 18:00: ion: [place] 00 4mg/ml Acetaminoph 2013-08 No Notes: Do M emoria en 325 MG / 2-15 not exceed l Hydrocodone 18:00: 4gm/day of [place] Bitartrate 00 acetaminop 10 MG Oral hen. (Same Tablet as: [place] 325/10) Dexamethaso 2013-08 No Notes: Grant elise ne 2-15 Concentrat l 18:00: ion: [place] 00 4mg/ml Acetaminoph 2013-08 No Notes: Do M emoria en 325 MG / 2-15 not exceed l Hydrocodone 18:00: 4gm/day of [place] Bitartrate 00 acetaminop 10 MG Oral hen. (Same Tablet as: [place] 325/10) Oxycodone 2013-08 No 10 mL, Memori [...] 2-15 Same as: l 15:00: BD [place] 00 Posiflush Sterile Vancomycin 2013-08 No 2001 mg: Me moria 6.67 MG/ML 2-15 infuse l Injectable 15:00: over 2.5 Her raya Solution 00 hours Docusate 2013-08 No Notes: Memoria 2-15 (Same as: l 15:00: Colace) [place] (Do Not Crush) sennosides, 2013-08 No Notes: Grant elise LONGTERM 2-15 (Same as: l 15:00: Senokot) [place] Levetiracet 2013-08 No Notes: Grant elise am 2-15 (Same l 15:00: as:Keppra) [place] 00 Saline 2013-08 No Notes: Memoria Flush 0.9% 2-15 Same as: l 15:00: BD [place] 00 Posiflush Sterile Vancomycin 2013-08 No 2001 mg: Me moria 6.67 MG/ML 2-15 infuse l Injectable 15:00: over 2.5 Her raya Solution 00 hours Docusate 2013-08 No Notes: Memoria 2-15 (Same as: l 15:00: Colace) [place] 00 (Do Not Crush) sennosides, 2013-08 No Notes: Grant elise LONGTERM 2-15 (Same as: l 15:00: Senokot) [place] Levetiracet 2013-08 No Notes: Grant elise am 2-15 (Same l 15:00: as:Keppra) [place] 00 Saline 2013-08 No Notes: Memoria Flush 0.9% 2-15 Same as: l 15:00: BD [place] 00 Posiflush Sterile Vancomycin 2013-08 No 2001 mg: Me moria 6.67 MG/ML 2-15 infuse l Injectable 15:00: over 2.5 Her raya Solution 00 hours Docusate 2013-08 No Notes: Memoria 2-15 (Same as: l 15:00: Colace) [place] (Do Not Crush) sennosides, 2013-08 No Notes: Grant elise LONGTERM 2-15 (Same as: l 15:00: Senokot) [place] 00 Levetiracet 2013-08 No Notes: Grant elise am 2-15 (Same l 15:00: as:Keppra) [place] 00 Saline 2013-08 No Notes: Memoria Flush 0.9% 2-15 Same as: l 15:00: BD Posiflush Sterile Vancomycin 2013-08 No 2001 mg: Me moria 6.67 MG/ML 2-15 infuse l Injectable 15:00: over 2.5 Her raya Solution 00 hours Docusate 2013-08 No Notes: Memoria 2-15 (Same as: l 15:00: Colace) [place] (Do Not Crush) sennosides, 2013-08 No Notes: Grant elise LONGTERM 2-15 (Same as: l 15:00: Senokot) Levetiracet 2013-08 No Notes: Grant elise am 2-15 (Same l 15:00: as:Keppra) Cefazolin 2013-08 No 2 gm, Memoria 2-15 Route: l 14:35: IVPB, [place] 00 ONCE, Dosing Weight 52.273, kg, Start date: 07/15/14 8:35:00, Duration: 1 doses or times, Stop date: 07/15/14 8:35:00 Cefazolin 2013-08 No 2 gm, Memoria 2-15 Route: l 14:35: IVPB, [place] 00 ONCE, Dosing Weight 52.273, kg, Start date: 07/15/14 8:35:00, Duration: 1 doses or times, Stop date: 07/15/14 8:35:00 Cefazolin 2013-08 No 2 gm, Memoria 2-15 Route: l 14:35: IVPB, [place] 00 ONCE, Dosing Weight 52.273, kg, Start date: 07/15/14 8:35:00, Duration: 1 doses or times, Stop date: 07/15/14 8:35:00 Cefazolin 2013-08 No 2 gm, Memoria 2-15 Route: l 14:35: IVPB, [place] 00 ONCE, Dosing Weight 52.273, kg, Start [...] 2-15 25 mL, l 14:19: Route: [place] IVP, Drug Form: INJ, Dosing Weight 52.273, [...] 2-15 mL, Route: l 14:19: IVP, Drug [place] 00 form: INJ, Q15Min, Dosing Weight 52.273, kg, PRN See Nurse's Notes, Start date: 07/15/14 8:19:00, Duration: 30 day, Stop date: 08/14/14 8:18:00, HTN Hydralazine 2013-08 No Notes: Grant elise 2-15 (Same as: l 14:19: Apresoline [place] 00 ) Push over 5 minutes Ondansetron 2013-08 No Notes: Grant elise 2-15 (Same as: l 14:19: Zofran) [place] 00 Bisacodyl 2013-08 No Notes: Memori a 2-15 (Same As: l 14:19: Dulcolax, [place] 00 Bisco-Lax) Acetaminoph 2013-08 No Notes: Do M emoria en 325 MG / 2-15 not exceed l Hydrocodone 14:19: 4gm/day of [place] Bitartrate 00 acetaminop 10 MG Oral hen. (Same Tablet as: [place] 325/10) Acetaminoph 2013-08 No Notes: Grant elise en 325 MG / 2-15 (Same as: l Hydrocodone 14:19: [place] Randi nn Bitartrate 00 325/5) Do 5 MG Oral not exceed Tablet 4gm/day of acetaminop hen. Morphine 2013-08 No Notes: Memoria 2-15 (Same l 14:19: as:MORPhin [place] 00 e Sulfate) Sodium 2013-08 No 1,000 mL, Memori a Chloride 2-15 Rate: 100 l 0.154 14:19: ml/hr, [place] MEQ/ML 00 Infuse Injectable over: 10 Solution hr, Route: IV, Dosing Weight 52.273 kg, Total Volume: 1,000, Start date: 07/15/14 8:19:00, Duration: 30 day, Stop date: 08/14/14 8:18:00 Dextrose 2013-08 No 12.5 gm, Memor ia 50% Syringe 2-15 25 mL, l 14:19: Route: [place] 00 IVP, Drug Form: INJ, Dosing Weight 52.273, kg, PRN, PRN Abnormal Lab Result, Start date: 07/15/14 8:19:00, Duration: 30 day, Stop date: 08/14/14 8:18:00 Regular 2013-08 No 60 units) Grant elise Insulin, 2-15 Stable for l Human 100 14:19: 28 days at [facility] UNT/ 00 room Injectable temperatur Solution e [...] 2-15 (Same As: l 14:19: Dulcolax, [place] Bisco-Lax) Acetaminoph 2013-08 No Notes: Do M emoria en 325 MG / 2-15 not exceed l Hydrocodone 14:19: 4gm/day of [place] Bitartrate 00 acetaminop 10 MG Oral hen. (Same Tablet as: [place] 325/10) Acetaminoph 2013-08 No Notes: Grant elise en 325 MG / 2-15 (Same as: l Hydrocodone 14:19: [place] Randi nn Bitartrate 00 325/5) Do 5 MG Oral not exceed Tablet 4gm/day of acetaminop hen. Morphine 2013-08 No Notes: Memoria 2-15 (Same l 14:19: as:MORPhin [place] 00 e Sulfate) Sodium 2013-08 No 1,000 [...] 2-15 mL, Route: l 14:19: IVP, Drug [place] 00 form: INJ, Q15Min, Dosing Weight 52.273, kg, PRN See Nurse's Notes, Start date: 07/15/14 8:19:00, Duration: 30 day, Stop date: 08/14/14 8:18:00, HTN Hydralazine 2013-08 No Notes: Grant elise 2-15 (Same as: l 14:19: Apresoline [place] 00 ) Push over 5 minutes Ondansetron 2013-08 No Notes: Grant elise 2-15 (Same as: l 14:19: Zofran) [place] 00 Bisacodyl 2013-08 No Notes: Memori a 2-15 (Same As: l 14:19: Dulcolax, [place] 00 Bisco-Lax) Acetaminoph 2013-08 No Notes: Do M emoria en 325 MG / 2-15 not exceed l Hydrocodone 14:19: 4gm/day of [place] Bitartrate 00 acetaminop 10 MG Oral hen. (Same Tablet as: [place] 325/10) Acetaminoph 2013-08 No Notes: Grant elise en 325 MG / 2-15 (Same as: l Hydrocodone 14:19: [place] Randi nn Bitartrate 00 325/5) Do 5 MG Oral not exceed Tablet 4gm/day of acetaminop hen. Morphine 2013-08 No Notes: Memoria 2-15 (Same l 14:19: as:MORPhin [place] 00 e Sulfate) Sodium 2013-08 No 1,000 mL, Memori a Chloride 2-15 Rate: 100 l 0.154 14:19: ml/hr, [place] MEQ/ML 00 Infuse Injectable over: 10 Solution hr, Route: IV, Dosing Weight 52.273 kg, Total Volume: 1,000, Start date: 07/15/14 8:19:00, Duration: 30 day, Stop date: 08/14/14 8:18:00 Dextrose 2013-08 No 12.5 gm, Memor ia 50% Syringe 2-15 25 mL, l 14:19: Route: [place] 00 IVP, Drug Form: INJ, Dosing Weight [...] 2-15 (Same As: l 14:19: Dulcolax, [place] Bisco-Lax) Acetaminoph 2013-08 No Notes: Do M emoria en 325 MG / 2-15 not exceed l Hydrocodone 14:19: 4gm/day of [place] Bitartrate 00 acetaminop 10 MG Oral hen. (Same Tablet as: [place] 325/10) Acetaminoph 2013-08 No Notes: Grant elise en 325 MG / 2-15 (Same as: l Hydrocodone 14:19: [place] Randi nn Bitartrate 00 325/5) Do 5 MG Oral not exceed Tablet 4gm/day of acetaminop hen. Morphine 2013-08 No Notes: Memoria 2-15 (Same l 14:19: as:MORPhin [place] 00 e Sulfate) Sodium 2013-08 No 1,000 [...] oria ne 2-15 Route: l 13:34: IVP, [place] 00 Q5Min, Dosing Weight 52.273, kg, PRN [...] moria e 2-15 Route: l 13:34: IVPB, [place] 00 ONCE, Dosing Weight 52.273, kg, PRN Nausea & Vomiting, Start date: 07/15/14 7:34:00 Hydromorpho 2013-08 No 0.5 mg, Mem oria ne 2-15 Route: l 13:34: IVP, [place] 00 Q5Min, Dosing Weight 52.273, kg, PRN [...] ne 0-06 (Same as: l 18:40: Dilaudid) [place] Benadryl 2013-08 No Notes: Memoria 0-06 (Same as: l 18:40: Benadryl) [place] 00 Reglan 2013-08 No Notes: Memoria 0-06 (Same as: l 18:40: Reglan) [place] 00 NS 1,000 mL 2013-08 No Special Mem oria 0-06 Instructio l 18:40: ns: Bolus [place] 00 Dose Hydromorpho 2013-08 No Notes: Grant elise ne 0-06 (Same as: l 18:40: Dilaudid) [place] 00 Benadryl 2013-08 No Notes: Memoria 0-06 (Same as: l 18:40: Benadryl) [place] 00 Reglan 2013-08 No Notes: Memoria 0-06 (Same as: l 18:40: Reglan) [place] 00 NS 1,000 mL 2013-08 No Special Mem oria 0-06 Instructio l 18:40: ns: Bolus [place] 00 Dose Hydromorpho 2013-08 No Notes: Grant elise ne 0-06 (Same as: l 18:40: Dilaudid) [place] 00 Benadryl 2013-08 No Notes: Memoria 0-06 (Same as: l 18:40: Benadryl) [place] 00 Reglan 2013-08 No Notes: Memoria 0-06 (Same as: l 18:40: Reglan) [place] 00 NS 1,000 mL 2013-08 No Special Mem oria 0-06 Instructio l 18:40: ns: Bolus [place] 00 Dose Hydromorpho 2013-08 No Notes: Grant elise ne 0-06 (Same as: l 18:40: Dilaudid) [place] 00 Benadryl 2013-08 No Notes: Memoria 0-06 (Same as: l 18:40: Benadryl) [place] 00 Reglan 2013-08 No Notes: Memoria 0-06 (Same as: l 18:40: Reglan) [place] 00 NS 1,000 mL 2013-08 No Special Mem oria 0-06 Instructio l 18:40: ns: Bolus [place] 00 Dose vancomycin 2012-08 No Zoran 1 gm, Grant elise 08-02 [place] Route: l 04:00: [place] IVPB, Drug [place] 00 form: INJ, [id number], Dosing Weight 51.364, kg, For 65 - 90kg, Start date: 06/01/13 23:00:00, Duration: 30 day, Stop date: 06/30/13 23:00:00(S john As: Vancocin) vancomycin 2012-08 No Zoran 1 gm, Grant elise 1- [place] Route: l 04:00: [place] IVPB, Drug [place] 00 form: INJ, [id number], Dosing Weight 51.364, kg, For 65 - 90kg, Start date: 06/01/13 23:00:00, Duration: 30 day, Stop date: 06/30/13 23:00:00(S john As: Vancocin) vancomycin 2012-08 No Zoran 1 gm, Grant elise 08-02 [place] Route: l 04:00: [place] IVPB, Drug [place] form: INJ, [id number], Dosing Weight 51.364, kg, For 65 - 90kg, Start date: 06/01/13 23:00:00, Duration: 30 day, Stop date: 06/30/13 23:00:00(S john As: Vancocin) vancomycin 2012-08 No Zoran 1 gm, Grant elise 08-02 [place] Route: l 04:00: [place] IVPB, Drug [place] form: INJ, [id number], Dosing Weight 51.364, kg, For 65 - 90kg, Start date: 06/01/13 23:00:00, Duration: 30 day, Stop date: 06/30/13 23:00:00(S john As: Vancocin) Pepcid 20 2012-08 Yes Zoran 20 mg, 1 Me moria mg oral 08-01 [place] tab, PO, l tablet 15:08: [place] BID, 60 [place] 57 tab, Substituti on Allowed Pepcid 20 2012-08 Yes Zoran 20 mg, 1 Me moria mg oral 08-01 [place] tab, PO, l tablet 15:08: [place] BID, 60 [place] 57 tab, Substituti on Allowed Pepcid 20 2012-08 Yes Zoran 20 mg, 1 Me moria mg oral 08-01 [place] tab, PO, l tablet 15:08: [place] BID, 60 [place] 57 tab, Substituti on Allowed Pepcid 20 2012-08 Yes Zoran 20 mg, 1 Me moria mg oral 08-01 [place] tab, PO, l tablet 15:08: [place] BID, 60 [place] 57 tab, Substituti on Allowed dexamethaso 2012-08 [...] l mg oral 15:07: [place] BID, 20 [place] capsule 32 cap, Substituti on Allowed docusate 2012-08 Yes Zoran 100 mg, 1 Me moria sodium 100 08-01 [place] cap, PO, l mg oral 15:07: [place] BID, 20 [place] capsule 32 cap, Substituti on Allowed docusate 2012-08 Yes Zoran 100 mg, 1 Me moria sodium 100 08-01 [place] cap, PO, l mg oral 15:07: [place] BID, 20 [place] capsule 32 cap, Substituti on Allowed docusate 2012-08 Yes Zoran 100 mg, 1 Me moria sodium 100 08-01 [place] cap, PO, l mg oral 15:07: [place] BID, 20 [place] capsule 32 cap, Substituti on Allowed [place] 2012-08 Yes Zoran 2 tab, PO, Grant elise 10/325 oral 08-01 [place] Q4H, PRN, l tablet 15:07: [place] 120 tab, [place] 17 as needed for pain, Substituti on Allowed, Maintenanc e, TAB [place] 2012-08 Yes Zoran 2 tab, PO, Grant elise 10/325 oral 08-01 [place] Q4H, PRN, l tablet 15:07: [place] 120 tab, [place] 17 as needed for pain, Substituti on Allowed, Maintenanc e, TAB [place] 2012-08 Yes Zoran 2 tab, PO, Grant elise 10/325 oral 1-01 [place] Q4H, PRN, l tablet 15:07: [place] 120 tab, [place] 17 as needed for pain, Substituti on Allowed, Maintenanc e, TAB [place] 2012-08 Yes Zoran 2 tab, PO, Grant elise 10/325 oral 1-01 [place] Q4H, PRN, l tablet 15:07: [place] 120 tab, [place] 17 as needed for pain, Substituti on Allowed, Maintenanc e, TAB Pepcid 2012-08 No Zoran 20 mg, 1 Me moria mg oral - [place] tab, l tablet 14:00: [place] Route: PO, Randi nn 00 Drug form: TAB, Q12H, Dosing Weight 51.364, kg, Start date: 06/01/13 9:00:00, Duration: 30 day, Stop date: 06/30/13 21:00:00(S john as: Pepcid) Pepcid 2012-08 No Zoran 20 mg, 1 Me moria mg oral - [place] tab, l tablet 14:00: [place] Route: PO, Randi nn 00 Drug form: TAB, Q12H, Dosing Weight 51.364, kg, Start date: 06/01/13 9:00:00, Duration: 30 day, Stop date: 06/30/13 21:00:00(S john as: Pepcid) Pepcid 2012-08 No Zoran 20 mg, 1 Me moria mg oral - [place] tab, l tablet 14:00: [place] Route: PO, Randi nn 00 Drug form: TAB, Q12H, Dosing Weight 51.364, kg, Start date: 06/01/13 9:00:00, Duration: 30 day, Stop date: 06/30/13 21:00:00(S john as: Pepcid) Pepcid 2012-08 No Zoran 20 mg, 1 Me moria mg oral - [place] tab, l tablet 14:00: [place] Route: PO, Randi nn 00 Drug form: TAB, Q12H, Dosing Weight 51.364, kg, Start date: 06/01/13 9:00:00, Duration: 30 day, Stop date: 06/30/13 21:00:00(Cody lopez as: Pepciamy) dexamethaso 2012- No Zoran 4 mg, 1 M emoria ne 08-01 [place] mL, Route: l 05:00: [place] IVP, Drug [place] 00 form: INJ, Q6H, Dosing Weight 51.364, kg, Start date: 06/01/13 0:00:00, Duration: 30 day, Stop date: 06/30/13 18:00:00Co ncentratio n: 4mg/ml dexamethaso 2012-08 No Zoran 4 mg, 1 M emoria ne 08-01 [place] mL, Route: l 05:00: [place] IVP, Drug [place] 00 form: INJ, Q6H, Dosing Weight 51.364, [...] mL, Route: l 05:00: [place] IVP, Drug [place] 00 form: INJ, Q6H, Dosing Weight 51.364, [...] Camila 2 gm, Mem oria + Sodium 1-01 Madhuri [place] Route: l Chloride 04:00: IVPB, [place] 0.9% IV 500 00 ONCE, mL Dosing Weight 51.364, kg, For 70 - 90kg., Start date: 05/31/13 23:00:00, Stop date: 05/31/13 23:00:00(S john As: Vancocin) Vancomycin FOR IV SET ONLY vancomycin 2012-08 No Camila 2 gm, Mem oria + Sodium 1-01 Madhuri [place] Route: l Chloride 04:00: IVPB, [place] 0.9% IV 500 00 ONCE, mL Dosing Weight 51.364, kg, For 70 - 90kg., Start date: 05/31/13 23:00:00, Stop date: 05/31/13 23:00:00(S john As: Vancocin) Vancomycin FOR IV SET ONLY vancomycin 2012-08 No Camila 2 gm, Mem oria + Sodium 1-01 Madhuri [place] Route: l Chloride 04:00: IVPB, [...] Dilaudid 2012-08 No Jillian 0.2 mg, Grant elsie 1-01 [place] 0.1 mL, l 03:05: Route: IV, [place] 00 Drug form: INJ, Q3H, Dosing Weight 51.364, kg, PRN Pain, Start date: 05/31/13 22:05:00, Duration: 30 day, Stop date: 06/30/13 22:04:00(S john as: Dilaudid) Dilaudid 2012-08 No Jillian 0.2 mg, Grant elise 1-01 [place] 0.1 mL, l 03:05: Route: IV, [place] 00 Drug form: INJ, Q3H, Dosing Weight 51.364, kg, PRN Pain, Start date: 05/31/13 22:05:00, Duration: 30 day, Stop date: 06/30/13 22:04:00(S john as: Dilaudid) [place] 2012-08 No Jillian 1 tab, Memoria 10/325 oral 08-01 [place] Route: PO, l tablet 03:04: Drug Form: Randi nn 00 TAB, Dosing Weight 51.364, kg, Q4H, PRN Pain, Start date: 05/31/13 22:04:00, Duration: 30 day, Stop date: 06/30/13 22:03:00Do not exceed 4gm/day of acetaminop hen. (Same as: [place] 325) [place] 2012-08 No Jillian 1 tab, Memoria 10/325 oral - [place] Route: PO, l tablet 03:04: Drug Form: Randi nn 00 TAB, Dosing Weight 51.364, kg, Q4H, PRN Pain, Start date: 05/31/13 22:04:00, Duration: 30 day, Stop date: 06/30/13 22:03:00Do not exceed 4gm/day of acetaminop hen. (Same as: [place] [address]) [place] 2012-08 No Jillian 1 tab, Memoria 10/325 oral 08-01 [place] Route: PO, l tablet 03:04: Drug Form: Randi nn 00 TAB, Dosing Weight 51.364, kg, Q4H, PRN Pain, Start date: 05/31/13 22:04:00, Duration: 30 day, Stop date: 06/30/13 22:03:00Do not exceed 4gm/day of acetaminop hen. (Same as: [place] ) [place] 2012-08 No Jillian 1 tab, Memoria oral 08-01 [place] Route: PO, l tablet 03:04: Drug Form: Randi nn 00 TAB, Dosing Weight 51.364, kg, Q4H, PRN Pain, Start date: 05/31/13 22:04:00, Duration: 30 day, Stop date: 06/30/13 22:03:00Do not exceed 4gm/day of acetaminop hen. (Same as: [place] ) cefepime 2012-08 No Zoran 1 gm, Memori a 08-01 [place] Route: l 03:00: [place] IVPB, Drug [place] 00 form: INJ, Q8H, Dosing Weight 51.364, kg, (CrCl >/= 50 ml/min), Start date: 05/31/13 22:00:00, Duration: 30 day, Stop date: 06/30/13 14:00:00(S john As: Maxipime) cefepime 2012-08 No Zoran 1 gm, Memori a 08-01 [place] Route: l 03:00: [place] IVPB, Drug [place] 00 form: INJ, Q8H, Dosing Weight 51.364, kg, (CrCl >/= 50 ml/min), Start date: 05/31/13 22:00:00, Duration: 30 day, Stop date: 06/30/13 14:00:00(S john As: Maxipime) cefepime 2012-08 No Zoran 1 gm, Memori a 08-01 [place] Route: l 03:00: [place] IVPB, Drug [place] 00 form: INJ, Q8H, Dosing Weight 51.364, kg, (CrCl >/= 50 ml/min), Start date: 05/31/13 22:00:00, Duration: 30 day, Stop date: 06/30/13 14:00:00(S john As: Maxipime) cefepime 2012-08 No Zoran 1 gm, Memori a 08-01 [place] Route: l 03:00: [place] IVPB, Drug form: INJ, Q8H, Dosing Weight 51.364, kg, (CrCl >/= 50 ml/min), Start date: 05/31/13 22:00:00, Duration: 30 day, Stop date: 06/30/13 14:00:00(S john As: Maxipime) docusate 2012-08 No Camila 100 mg, 1 M emoria 08-01 Madhuri [place] cap, l 02:00: Route: PO, [place] Drug form: CAP, Q12H, Dosing Weight 51.364, [...] [place] cap, l 02:00: Route: PO, [place] Drug form: CAP, Q12H, Dosing Weight 51.364, kg, Start date: 05/31/13 21:00:00, Duration: 30 day, Stop date: 06/30/13 9:00:00(Sa me as: Colace) (Do Not Crush) senna 8.6 2012-08 No Camila 8.6 mg, 1 Memoria mg oral -01 Madhuri [place] tab, l tablet 02:00: Route: PO, Randi nn 00 Drug Form: TAB, Dosing Weight 51.364, kg, Bedtime, Start date: 05/31/13 21:00:00, Duration: 30 day, Stop date: 06/29/13 21:00:00(S john as: Senokot) Saline 2012-08 No Camila 5 ml, Memoria Flush 0.9% 08-01 Madhuri [place] Route: l 02:00: IVP, Drug [place] Form: INJ, Dosing Weight 51.364, kg, Q12H, Start date: 05/31/13 21:00:00, Duration: 30 day, Stop date: 06/30/13 9:00:00(Sa me as: BD Posiflush) docusate 2012-08 No Camila 100 mg, 1 M emoria 08-01 Madhuri [place] cap, l 02:00: Route: PO, [place] 00 Drug form: CAP, Q12H, Dosing Weight [...] No Camila 5 ml, Memoria Flush 0.9% - Madhuri [place] Route: l 02:00: IVP, Drug [place] 00 Form: INJ, Dosing Weight 51.364, kg, [...] Madhuri [place] Route: l 02:00: IVP, Drug [place] 00 Form: INJ, Dosing Weight 51.364, kg, Q12H, Start date: 05/31/13 21:00:00, Duration: 30 day, Stop date: 06/30/13 9:00:00(Sa me as: BD Posiflush) vancomycin 2012-08 No Camila 1 gm, Mem oria 08-01 Madhuri [place] Route: l 00:00: IVPB, Drug [place] 00 form: INJ, [id number], Dosing Weight 51.364, kg, For 65 - 90kg, Start date: 05/31/13 19:00:00, Duration: 30 day, Stop date: 06/29/13 19:00:00(S john As: Vancocin) vancomycin 2012-08 No Camila 1 gm, Mem oria 08-01 Madhuri [place] Route: l 00:00: IVPB, Drug [place] 00 form: INJ, [id number], Dosing Weight 51.364, kg, For 65 - 90kg, Start date: 05/31/13 19:00:00, Duration: 30 day, Stop date: 06/29/13 19:00:00(S john As: Vancocin) vancomycin 2012-08 No Camila 1 gm, Mem oria 1-01 Madhuri [place] Route: l 00:00: IVPB, Drug [place] 00 form: INJ, [id number], Dosing Weight 51.364, kg, For 65 - 90kg, Start date: 05/31/13 19:00:00, Duration: 30 day, Stop date: 06/29/13 19:00:00(S john As: Vancocin) vancomycin 2012-08 No Camila 1 gm, Mem oria 1- Madhuri [place] Route: l 00:00: IVPB, Drug [place] 00 form: INJ, [id number], Dosing Weight 51.364, kg, For 65 - 90kg, Start date: 05/31/13 19:00:00, Duration: 30 day, Stop date: 06/29/13 19:00:00(S john As: Vancocin) [place] 5/325 2012-08 No Jillian 1 tab, Me moria oral tablet 0-31 [place] Route: PO, l 23:51: Drug Form: [place] 00 TAB, Dosing Weight 51.364, kg, Q4H, PRN Pain, Start date: 05/31/13 18:51:00, Duration: 30 day, Stop date: 06/30/13 18:50:00(S john as: [place] 325/5) Do not exceed 4gm/day of acetaminop hen. Zofran 2012-08 No Camila 4 mg, 2 Memor ia 0-31 Madhuri [place] mL, Route: l 23:51: IVP, Drug [place] 00 form: INJ, Q8H, Dosing Weight 51.364, kg, PRN Nausea, Start date: 05/31/13 18:51:00, Duration: 30 day, Stop date: 06/30/13 18:50:00(S john as: Zofran) hydrALAZINE 2012-08 No Camila 10 mg, 0.5 Memoria 0-31 Madhuri [place] mL, Route: l 23:51: IVP, Drug [place] 00 form: INJ, Q2H, Dosing Weight 51.364, [...] Madhuri [place] tab, l 23:51: Route: PO, [place] 00 Drug form: TAB, Q6H, Dosing Weight 51.364, kg, PRN Fever, Start date: 05/31/13 18:51:00, Duration: 30 day, Stop date: 06/30/13 18:50:00Do not exceed 4 gm/day. (Same as: Tylenol) [place] 5/325 2012-08 No Jillian 1 tab, Me moria oral tablet 0-31 Elliott Route: PO, l 23:51: Drug Form: [place] 00 TAB, Dosing Weight 51.364, kg, Q4H, PRN Pain, Start date: 05/31/13 18:51:00, Duration: 30 day, Stop date: 06/30/13 18:50:00(S john as: [place] 325/5) Do not exceed 4gm/day of acetaminop [...] not exceed 4 gm/day. (Same as: Tylenol) [place] 5/325 2012-08 No Jillian 1 tab, Me moria oral tablet 0-31 Elliott Route: PO, l 23:51: Drug Form: [place] 00 TAB, Dosing Weight 51.364, kg, Q4H, PRN Pain, Start date: 05/31/13 18:51:00, Duration: 30 day, Stop date: 06/30/13 18:50:00(S john as: [place] 325/5) Do not exceed 4gm/day of acetaminop [...] not exceed 4 gm/day. (Same as: Tylenol) [place] 5/325 2012-08 No Jillian 1 tab, Me moria oral tablet 0-31 Elliott Route: PO, l 23:51: Drug Form: [place] 00 TAB, Dosing Weight 51.364, kg, Q4H, PRN Pain, Start date: 05/31/13 18:51:00, Duration: 30 day, Stop date: 06/30/13 18:50:00(S john as: [place] 325/5) Do not exceed 4gm/day of acetaminop [...] [place] mL, Route: l 23:51: IVP, Drug [place] 00 form: INJ, Q2H, Dosing Weight 51.364, [...] Madhuri [place] Route: l 23:50: IVP, Drug [place] 00 Form: INJ, Dosing Weight 51.364, kg, [...] Rate: 50 l 0.9% IV 23:50: ml/hr, [place] 1,000 mL 00 Infuse over: 20 hr, [...] Camila 5 ml, Memoria Flush 0.9% 0-31 Madhuir [place] Route: l 23:50: IVP, Drug [place] [...] 0-31 Esquenazi microgram, l 23:01: Rosales Route: [place] 00 IVP, ONCE, Dosing Weight 51.364, kg, Priority: STAT, Start date: 05/31/13 18:01:00, Stop date: 05/31/13 18:01:00 fentanyl 2012-08 No Zoran 50 Memoria 0-31 [place] microgram, l 23:01: Rosales Route: [place] 00 IVP, ONCE, Dosing Weight 51.364, kg, [...] Pb 0.5 mL, l 21:30: Christina Route: [place] 00 IVPB, Drug form: INJ, ONCE, Dosing Weight 51.364, kg, Priority: STAT, Start date: 05/31/13 16:30:00, Stop date: 05/31/13 16:30:00(S john as: Phenergan) Phenergan 2012-08 No Remi 12.5 mg, M emoria 0-31 Pb 0.5 mL, l 21:30: Christina Route: [place] 00 IVPB, Drug form: INJ, ONCE, Dosing Weight 51.364, kg, Priority: STAT, Start date: 05/31/13 16:30:00, Stop date: 05/31/13 16:30:00(S john as: Phenergan) Phenergan 2012-08 No Remi 12.5 mg, M emoria 0-31 Pb 0.5 mL, l 21:30: Christina Route: [place] 00 IVPB, Drug form: INJ, ONCE, Dosing Weight 51.364, kg, Priority: STAT, Start date: 05/31/13 16:30:00, Stop date: 05/31/13 16:30:00(S john as: Phenergan) Phenergan 2012-08 No Remi 12.5 mg, M emoria 0-31 Pb 0.5 mL, l 21:30: Christina Route: IVPB, Drug form: INJ, ONCE, Dosing Weight 51.364, kg, Priority: STAT, Start date: 05/31/13 16:30:00, Stop date: 05/31/13 16:30:00(S john as: Phenergan) ketorolac 2012-08 Yes Jd 10 mg, 1 Mem oria 10 mg oral 0-13 Sebastian tab, PO, l tablet 12:11: Abdunnur Q6H, PRN, rmann 00 8 tab, Pain, Substituti on Allowed, TAB ketorolac 2012-08 Yes Jd 10 mg, 1 Mem oria 10 mg oral 0-13 Sebastian tab, PO, l tablet 12:11: Abdunnur Q6H, PRN, rmann 00 8 tab, Pain, Substituti on Allowed, TAB ketorolac 2012-08 Yes Jd 10 mg, 1 Mem oria 10 mg oral 0-13 Sebastian tab, PO, l tablet 12:11: Abdunnur Q6H, PRN, rmann 00 8 tab, Pain, Substituti on Allowed, TAB ketorolac 2012-08 Yes Jd 10 mg, 1 Mem oria 10 mg oral 0-13 Sebastian tab, PO, l tablet 12:11: Abdunnur Q6H, PRN, rmann 00 8 tab, Pain, Substituti on [...] l 8.85% oral 12:10: Abdunnur PO, ONCE, [place] liquid 22 PRN, 1 mL, 1, 1, constipati on, Substituti on Allowed, Soft Stop, LIQ magnesium 2012-08 Yes Jd 17.45 gm, Me moria citrate 0-13 Sebastian 300 mL, l 8.85% oral 12:10: Abdunnur PO, ONCE, [place] liquid 22 PRN, 1 mL, 1, 1, constipati on, Substituti on Allowed, Soft Stop, LIQ magnesium 2012-08 Yes Jd 17.45 gm, Me moria citrate 0-13 Sebastian 300 mL, l 8.85% oral 12:10: Abdunnur PO, ONCE, [place] liquid 22 PRN, 1 mL, 1, 1, [...] raya capsule 20 cap, Substituti on Allowed [place] 2012-08 Yes Jd 2 tab, PO, Memor ia 10/325 oral 0-13 Sebastian Q4H, PRN, l tablet 12:10: Abdunnur 120 tab, Her raya 18 as needed for pain, Substituti on Allowed, Maintenanc e, TAB [place] 2012-08 Yes Jd 2 tab, PO, Memor ia 10/325 oral 0-13 Sebastian Q4H, PRN, l tablet 12:10: Abdunnur 120 tab, Her raya 18 as needed for pain, Substituti on Allowed, Maintenanc e, TAB [place] 2012-08 Yes Jd 2 tab, PO, Memor ia 10/325 oral 0-13 Sebastian Q4H, PRN, l tablet 12:10: Abdunnur 120 tab, Her raya 18 as needed for pain, Substituti on Allowed, Maintenanc e, TAB [place] 2012-08 Yes Jd 2 tab, PO, Memor [...] Stop date: 06/11/13 14:01:00(S john as: Benadryl) [place] 2012-08 No Jd 2 tab, Memoria 10/325 oral 0-12 Sebastian Route: PO, l tablet 14:00: Abdunnur Drug Form: H ermann 00 TAB, Dosing Weight 51.364, kg, Q4H, Start date: 05/12/13 9:00:00, Duration: 30 day, Stop date: 06/11/13 5:00:00Do not exceed 4gm/day of acetaminop hen. (Same as: [place] 325/10) [place] 2012-08 No Jd 2 tab, Memoria 10/325 oral 0-12 Sebastian Route: PO, l tablet 14:00: Abdunnur Drug Form: H ermann 00 TAB, Dosing Weight 51.364, kg, Q4H, Start date: 05/12/13 9:00:00, Duration: 30 day, Stop date: 06/11/13 5:00:00Do not exceed 4gm/day of acetaminop hen. (Same as: [place] 325/10) [place] 2012-08 No Jd 2 tab, Memoria 10/325 oral 0-12 Sebastian Route: PO, l tablet 14:00: Abdunnur Drug Form: H ermann 00 TAB, Dosing Weight 51.364, kg, Q4H, Start date: 05/12/13 9:00:00, Duration: 30 day, Stop date: 06/11/13 5:00:00Do not exceed 4gm/day of acetaminop hen. (Same as: [place] ) [place] 2012-08 No Jd 2 tab, Memoria 10/325 oral 0-12 Sebastian Route: PO, l tablet 14:00: Abdunnur Drug Form: H ermann 00 TAB, Dosing Weight 51.364, kg, Q4H, Start date: 05/12/13 9:00:00, Duration: 30 day, Stop date: 06/11/13 5:00:00Do not exceed 4gm/day of acetaminop hen. (Same as: [place] ) [place] 2012-08 No Jd 2 tab, Memoria 10/325 oral 0-12 Sebastian Route: PO, l tablet 13:00: Abdunnur Drug Form: H ermann 00 TAB, Dosing Weight 51.364, kg, Q4H, Start date: 05/12/13 8:00:00, Duration: 30 day, Stop date: 06/11/13 4:00:00 [place] 2012-08 No Jd 2 tab, Memoria 10/325 oral 0-12 Sebastian Route: PO, l tablet 13:00: Abdunnur Drug Form: H ermann 00 TAB, Dosing Weight 51.364, kg, Q4H, Start date: 05/12/13 8:00:00, Duration: 30 day, Stop date: 06/11/13 4:00:00 [place] 2012-08 No Jd 2 tab, Memoria 10/325 oral 0-12 Sebastian Route: PO, l tablet 13:00: Abdunnur Drug Form: H ermann 00 TAB, Dosing Weight 51.364, kg, Q4H, Start date: 05/12/13 8:00:00, Duration: 30 day, Stop date: 06/11/13 4:00:00 [place] 2012-08 No Jd 2 tab, Memoria 10/325 [...] [place] 25 mg, 0.5 Memoria 0-11 n Randloph mL, Route: l 19:16: IVP, Drug [place] 00 form: INJ, ONCE, Dosing Weight 51.364, [...] No Angeline 1 spray, Memor ia topical 0 Jemal Route: l 1.4% spray 16:34: Gabi MUCOUS He rmann 00 MEM, Q6H, Drug form: SPRY, PRN Sore Throat, Start date: 05/11/13 11:34:00, Duration: 30 day, Stop date: 06/10/13 11:33:00Ch loraseptic Francis (Same as: Chlorasept ic, Sore Throat Francis) phenol 2012-08 No Angeline 1 spray, Memor ia topical 0 Jemal Route: l 1.4% spray 16:34: Gabi MUCOUS He rmann 00 MEM, Q6H, Drug form: SPRY, PRN Sore Throat, Start date: 05/11/13 11:34:00, Duration: 30 day, Stop date: 06/10/13 11:33:00Ch loraseptic Francis (Same as: Chlorasept ic, Sore Throat Francis) phenol 2012-08 No Angeline 1 spray, Memor ia topical 0-11 Jemal Route: l 1.4% spray 16:34: Gabi MUCOUS He rmann 00 MEM, Q6H, Drug form: SPRY, PRN Sore Throat, Start date: 05/11/13 11:34:00, Duration: 30 day, Stop date: 06/10/13 11:33:00Ch loraseptic Francis (Same as: Chlorasept ic, Sore Throat Francis) phenol 2012-08 No Angeline 1 spray, Memor ia topical 0-11 Jemal Route: l 1.4% spray 16:34: Gabi MUCOUS He rmann 00 MEM, Q6H, Drug form: ALMA LIMONN Sore Throat, Start date: 05/11/13 11:34:00, Duration: 30 day, Stop date: 06/10/13 11:33:00Ch loraseptic Francis (Same as: Chlorasept ic, Sore Throat Francis) ketorolac 2012-08 No Jui-En 15 mg, 1 [...] Dorothy Rajiv 12.5 mL, l 10:19: Route: [place] 00 IVP, Drug Form: INJ, Dosing Weight 51.364, kg, PRN, PRN Abnormal Lab Result, Start date: 05/10/13 5:19:00, Duration: 30 day, Stop date: 06/09/13 4:18:00 insulin 2012-08 No Lisa 7 unit, Grant elise regular 100 0-10 Dorothy Rajiv 0.07 mL, l units/mL 10:19: Route: [place] human 00 SUB-Q, recombinant Drug form: SOLN, [...] Dorothy Rajiv 12.5 mL, l 10:19: Route: Dleta 00 IVP, Drug Form: INJ, Dosing Weight [...] Dorothy Rajiv 12.5 mL, l 10:19: Route: [place] 00 IVP, Drug Form: INJ, Dosing Weight [...] Jeff mL, Route: l 09:00: IVPB, Drug form: INJ, Q2H, Start date: 05/10/13 4:00:00, Duration: 2 doses or times, Stop date: 05/10/13 6:00:00 potassium 2012-08 No Feliciano 20 mEq, Grant elise chloride 0-10 Jeff 100 mL, l 09:00: Route: [place] 00 IVPB, Q2H, Start date: 05/10/13 4:00:00, Duration: 2 doses or times, Stop date: 05/10/13 6:00:00(Sa me as: KCL) Infuse no faster than 10 mEq/hr if given peripheral ly. magnesium 2012-08 No Feliciano 2 gm, 50 Mem oria sulfate 0-10 Jeff mL, Route: l 09:00: IVPB, Drug [place] 00 form: INJ, Q2H, Start date: 05/10/13 [...] Jeff mL, Route: l 09:00: IVPB, Drug [place] 00 form: INJ, Q2H, Start date: 05/10/13 4:00:00, Duration: 2 doses or times, Stop date: 05/10/13 6:00:00 potassium 2012-08 No Feliciano 20 mEq, Grant elise chloride 0-10 Jeff 100 mL, l 09:00: Route: [place] 00 IVPB, Q2H, Start date: 05/10/13 4:00:00, [...] 02:09: IVPB, [place] 0.9% IV 100 00 [id number], mL Dosing Weight 51.364, kg, Priority: NOW, Start date: 05/09/13 21:09:00, Duration: 30 day, Stop date: 06/08/13 11:00:00Sa me as Keppra Mix with 100ml NS, LR, or D5W levetiracet 2012-08 No Sylvia Sundeep 500 mg, Memoria am + Sodium 0-10 Route: l Chloride 02:09: IVPB, [place] 0.9% IV 100 00 [id number], mL Dosing Weight 51.364, kg, Priority: NOW, Start date: 05/09/13 21:09:00, Duration: 30 day, Stop date: 06/08/13 11:00:00Sa me as Keppra Mix with 100ml NS, LR, or D5W levetiracet 2012-08 No Sylvia Sundeep 500 mg, Memoria am + Sodium 0-10 Route: l Chloride 02:09: IVPB, [place] 0.9% IV 100 00 [id number], mL Dosing Weight 51.364, kg, Priority: NOW, Start date: 05/09/13 21:09:00, Duration: 30 day, Stop date: 06/08/13 11:00:00Sa me as Keppra Mix with 100ml NS, LR, or D5W levetiracet 2012-08 No Sylvia Sundeep 500 mg, Memoria am + Sodium 0-10 Route: l Chloride 02:09: IVPB, [place] 0.9% IV 100 00 [id number], mL Dosing Weight 51.364, kg, Priority: NOW, Start date: 05/09/13 21:09:00, Duration: 30 day, Stop date: 06/08/13 11:00:00Sa me as Keppra Mix with 100ml NS, LR, or D5W docusate 2012-08 No Jui-En 100 mg, 1 Me moria 0-10 Edward Adkins cap, l 02:00: Route: PO, [place] 00 Drug form: CAP, Q12H, Dosing Weight 51.364, kg, Start date: 05/09/13 21:00:00, Duration: 30 day, Stop date: 06/08/13 9:00:00(Sa me as: Colace) (Do Not Crush) famotidine 2012-08 No Jui-En 20 mg, 2 M emoria 0-10 Edward Adkins mL, Route: l 02:00: IVP, Drug [place] 00 form: INJ, Q12H, Dosing Weight 51.364, kg, [...] 20 mg, 2 M emoria 0-10 Edward Dakins mL, Route: l 02:00: IVP, Drug form: INJ, Q12H, Dosing Weight 51.364, kg, Start date: 05/09/13 21:00:00, Duration: 30 day, Stop date: 06/08/13 9:00:00(Sa me as: Pepcid) Can be dilute in 5-10cc NS IVP: Slow IV push over at least 2 minutes. senna 2012-08 No Jui-En 8.6 mg, 1 Memor ia 0-10 Edward Adkins tab, l 02:00: Route: PO, [place] 00 Drug Form: TAB, Dosing Weight 51.364, [...] Edward Adkins tab, l 02:00: Route: PO, [place] 00 Drug Form: TAB, Dosing Weight 51.364, kg, Q12H, Start date: 05/09/13 21:00:00, Duration: 30 day, Stop date: 06/08/13 9:00:00(Sa me as: Senokot) levetiracet 2012-08 No Sylvia Sundeep 500 mg, 1 Memoria am 0-10 tab, l 02:00: Route: PO, [place] 00 Drug form: TAB, Q12H, Dosing Weight [...] am 0-10 tab, l 02:00: Route: PO, [place] 00 Drug form: TAB, Q12H, Dosing Weight 51.364, kg, Start date: 05/09/13 21:00:00, Duration: 30 day, Stop date: 06/08/13 9:00:00([facility] as:Keppra) Saline 2012-08 No Jui-En 5 ml, Memoria Flush 0.9% 0-10 Edward Adkins Route: l 02:00: IVP, Drug [place] 00 Form: INJ, Dosing Weight 51.364, kg, Q12H, Start date: 05/09/13 21:00:00, Duration: 30 day, Stop date: 06/08/13 9:00:00([facility] as: BD Posiflush) Phenergan 2012-08 No Sylvia Sundeep 12.5 mg, Memoria 0-09 0.5 mL, l 23:31: Route: [place] 00 IVPB, Drug form: INJ, Q4H, Dosing Weight 51.364, kg, PRN Nausea & Vomiting, Start date: 05/09/13 18:31:00, Duration: 30 day, Stop date: 06/08/13 18:30:00Do not give IV push. (Same as: Phenergan) Reglan 2012-08 No Sylvia Sundeep 10 mg, 2 M emoria 0-09 mL, Route: l 23:31: IVP, Drug [place] 00 form: INJ, Q6H, Dosing Weight 51.364, kg, PRN Nausea & Vomiting, Start date: 05/09/13 18:31:00, Duration: 30 day, Stop date: 06/08/13 18:30:00(S john as: Reglan) Phenergan 2012-08 No Sylvia Sundeep 12.5 mg, Memoria 0-09 0.5 mL, l 23:31: Route: [place] 00 IVPB, Drug form: INJ, Q4H, Dosing Weight 51.364, kg, PRN Nausea & Vomiting, Start date: 05/09/13 18:31:00, Duration: 30 day, Stop date: 06/08/13 18:30:00Do not give IV push. (Same as: Phenergan) Reglan 2012-08 No Sylvia Sundeep 10 mg, 2 M emoria 0-09 mL, Route: l 23:31: IVP, Drug [place] 00 form: INJ, Q6H, Dosing Weight 51.364, kg, PRN Nausea & Vomiting, Start date: 05/09/13 18:31:00, Duration: 30 day, Stop date: 06/08/13 18:30:00(S john as: Reglan) Phenergan 2012-08 No Sylvia Sundeep 12.5 mg, Memoria 0-09 0.5 mL, l 23:31: Route: [place] 00 IVPB, Drug form: INJ, Q4H, Dosing [...] Memoria 0-09 0.5 mL, l 23:31: Route: [place] 00 IVPB, Drug form: INJ, Q4H, Dosing Weight 51.364, kg, PRN Nausea & Vomiting, Start date: 05/09/13 18:31:00, Duration: 30 day, Stop date: 06/08/13 18:30:00Do not give IV push. (Same as: Phenergan) Reglan 2012-08 No Sylvia Sundeep 10 mg, 2 M emoria 0-09 mL, Route: l 23:31: IVP, Drug [place] 00 form: INJ, Q6H, Dosing Weight 51.364, kg, PRN Nausea & Vomiting, Start date: 05/09/13 18:31:00, Duration: 30 day, Stop date: 06/08/13 18:30:00(S john as: Reglan) cefazolin 2012-08 No Jui-En 1 gm, Memor ia (SCIP) 0-09 Edward Adkins Route: l 23:00: IVPB, Drug [place] 00 form: PDR/INJ, ABXQ8H, Dosing Weight 51.364, kg, Start date: 05/09/13 18:00:00, Duration: 1 day, Stop date: 05/10/13 10:00:00(S john As: Ancef, Kefzol) dexamethaso 2012-08 No Sylvia Sundeep 4 mg, 1 Memoria ne 0-09 tab, l 23:00: Route: PO, [place] 00 Drug form: TAB, Q6H, Dosing Weight [...] ne 0-09 tab, l 23:00: Route: PO, [place] 00 Drug form: TAB, Q6H, Dosing Weight [...] Edward Adkins Route: l 21:00: IVPB, Drug [place] 00 form: PDR/INJ, ABXQ8H, Dosing Weight 51.364, kg, Start date: 05/09/13 16:00:00, Duration: 1 day, Stop date: 05/10/13 8:00:00(Sa me As: Ancef, Kefzol) cefazolin 2012-08 No Jui-En 1 gm, Memor ia (SCIP) 0- Edward Adkins Route: l 21:00: IVPB, Drug [place] 00 form: PDR/INJ, ABXQ8H, Dosing Weight 51.364, [...] Edward Adkins Route: l 21:00: IVPB, Drug [place] 00 form: PDR/INJ, ABXQ8H, Dosing Weight 51.364, kg, Start date: 05/09/13 16:00:00, Duration: 1 day, Stop date: 05/10/13 8:00:00( me As: Ancef, Kefzol) Zofran 2012-08 No Noah 4 mg, 2 Memori a 0-09 Gee mL, Route: l 20:59: Kiran IVP, Drug Randi nn 00 form: INJ, ONCE, Dosing Weight 51.364, kg, PRN Nausea, Start date: 05/09/13 15:59:00(S john as: Zofran) Zofran 2012-08 No Noah 4 mg, 2 Memori a 0-09 Gee mL, Route: l 20:59: [place] IVP, Drug Randi nn 00 form: INJ, ONCE, Dosing Weight 51.364, kg, PRN Nausea, Start date: 05/09/13 15:59:00(S john as: Zofran) Zofran 2012-08 No Noah 4 mg, 2 Memori a 0-09 Gee mL, Route: l 20:59: [place] IVP, Drug Randi nn 00 form: INJ, ONCE, Dosing Weight 51.364, kg, PRN Nausea, Start date: 05/09/13 15:59:00(S john as: Zofran) Zofran 2012-08 No Noah 4 mg, 2 Memori a 0-09 Gee mL, Route: l 20:59: [place] IVP, Drug Randi nn form: INJ, ONCE, Dosing Weight 51.364, kg, PRN Nausea, Start date: 05/09/13 15:59:00(S john as: Zofran) Zolvit oral 2012-08 No Noah 15 mL, Me moria liquid 0-09 Gee Route: PO, l 20:39: [place] Dosing [place] 00 Weight 51.364, kg, ONCE, PRN Pain, one time dose, Start date: 05/09/13 15:39:00 Zolvit oral 2012-08 No Noah 15 mL, Me moria liquid 0-09 Gee Route: PO, l 20:39: [place] Dosing [place] 00 Weight 51.364, kg, ONCE, PRN Pain, one time dose, Start date: 05/09/13 15:39:00 Zolvit oral 2012-08 No Noah 15 mL, Me moria liquid 0-09 Gee Route: PO, l 20:39: Kiran Dosing [place] 00 Weight 51.364, kg, ONCE, PRN Pain, one time dose, Start date: 05/09/13 15:39:00 Zolvit oral 2012-08 No Noah 15 mL, Me moria liquid 0-09 Gee Route: PO, l 20:39: [place] Dosing [place] 00 Weight 51.364, kg, ONCE, PRN Pain, one time dose, Start date: 05/09/13 15:39:00 bisacodyl 2012-08 No Jui-En 10 mg, 1 Me moria 0-09 Edward Adkins supp, l 18:10: Route: MS, [place] Drug form: SUPP, Daily, Dosing Weight 51.364, [...] Rajiv mL, Route: l 18:10: IVP, Drug [place] 00 form: INJ, Q1H, Dosing Weight 51.364, kg, PRN Pain Score 7-10, Start date: 05/09/13 13:10:00, Duration: 30 day, Stop date: 06/08/13 12:09:00(S john as:MORPhin e Sulfate) acetaminoph 2012-08 No Jd 2 tab, Mem oria en-hydrocod 0 Sebastian Route: PO, l one 325 18:10: Abdunnur Drug Form: [place] mg-10 mg 00 TAB, oral tablet Dosing Weight 51.364, kg, Q4H, PRN Pain Score 7-10, Start date: 05/09/13 13:10:00, Duration: 30 day, Stop date: 06/08/13 13:09:00Do not exceed 4gm/day of acetaminop hen. (Same as: [place] 325/10) Saline 2012-08 No Jui-En 5 ml, Memoria Flush 0.9% 0 [facility] [place] Route: l 18:10: IVP, Drug [place] 00 [...] Rate: 100 l 0.9% IV 18:10: ml/hr, [place] 1000 mL 00 Infuse over: 10 hr, [...] day, Stop date: 06/08/13 13:09:00(S john as: [place] 325/5) Do not exceed 4gm/day of acetaminop hen. bisacodyl 2012-08 No Jui-En 10 mg, 1 Me moria 0-09 Edward Adkins supp, l 18:10: Route: MS, [place] 00 Drug form: SUPP, Daily, Dosing [...] Lisa 2 mg, 1 Mem oria Sulfate 0-09 Dorothy Rajiv mL, Route: l 18:10: IVP, Drug [place] 00 form: INJ, Q1H, Dosing Weight 51.364, kg, PRN Pain Score 7-10, Start date: 05/09/13 13:10:00, Duration: 30 day, Stop date: 06/08/13 12:09:00(S john as:MORPhin e Sulfate) acetaminoph 2012-08 No Jd 2 tab, Mem oria en-hydrocod 0- Sebastian Route: PO, l one 325 18:10: Abdunnur Drug Form: [place] mg-10 mg 00 TAB, oral tablet Dosing Weight 51.364, kg, Q4H, PRN Pain Score 7-10, Start date: 05/09/13 13:10:00, Duration: 30 day, Stop date: 06/08/13 13:09:00Do not exceed 4gm/day of acetaminop hen. (Same as: [place] 325/10) Saline 2012-08 No Jui-En 5 ml, [...] Rate: 100 l 0.9% IV 18:10: ml/hr, [place] 1000 mL 00 Infuse over: 10 hr, [...] day, Stop date: 06/08/13 13:09:00(S john as: [place] 325/5) Do not exceed 4gm/day of acetaminop hen. bisacodyl 2012-08 No Jui-En 10 mg, 1 Me moria 0-09 Edward Adkins supp, l 18:10: Route: MS, [place] 00 Drug form: SUPP, Daily, Dosing [...] Lisa 2 mg, 1 Mem oria Sulfate 0-09 Dorothy Rajiv mL, Route: l 18:10: IVP, [...] exceed 4gm/day of acetaminop hen. (Same as: [place] 325/10) Saline 2012-08 No Jui-En 5 ml, Memoria Flush 0.9% 0 Edward Adkins Route: l 18:10: IVP, Drug [place] 00 Form: INJ, Dosing Weight 51.364, kg, PRN, PRN Line Flush, Start date: 05/09/13 13:10:00, Duration: 30 day, Stop date: 06/08/13 12:09:00(S john as: BD Posiflush) acetaminoph 2012-08 No Jd 650 mg, Me moria en 0- Sebastian 20.3 mL, l 18:10: Abdunnur Route: PO, Her raya 00 Drug form: LIQ, Q4H, Dosing Weight 51.364, kg, PRN Pain 1-3/Temp > 99.5 F, Start date: 05/09/13 13:10:00, Duration: 30 day, Stop date: 06/08/13 13:09:00Ma x acetaminop hen = 4000mg/day (4 gm/day). (Same as: Tylenol) Sodium 2012-08 No Jui-En 1,000 mL, Grant elise Chloride 0 Ed Adkins Rate: 100 l 0.9% IV 18:10: ml/hr, [place] 1000 mL 00 Infuse over: 10 hr, Route: IV, Dosing Weight 51.364 kg, Total Volume: 1,000, Start date: 05/09/13 13:10:00, Duration: 30 day, Stop date: 06/08/13 13:09:00 acetaminoph 2012-08 No Jd 1 tab, Mem oria en-hydrocod 0 Sebastian Route: PO, l one 325 18:10: Abdunnur Drug Form: [place] mg-5 mg 00 TAB, oral tablet Dosing Weight 51.364, kg, Q4H, PRN Pain Score 1-3, Start date: 05/09/13 13:10:00, Duration: 30 day, Stop date: 06/08/13 13:09:00(S john as: [place] 325/5) Do not exceed 4gm/day of acetaminop hen. bisacodyl 2012-08 No Jui-En 10 mg, 1 Me moria 0-09 Edward Adkins supp, l 18:10: Route: MS, [place] 00 Drug form: SUPP, Daily, Dosing [...] Lisa 2 mg, 1 Mem oria Sulfate 0-09 Dorothy Rajiv mL, Route: l 18:10: IVP, Drug [place] 00 form: INJ, Q1H, Dosing Weight 51.364, kg, PRN Pain Score 7-10, Start date: 05/09/13 13:10:00, Duration: 30 day, Stop date: 06/08/13 12:09:00(S john as:MORPhin e Sulfate) acetaminoph 2012-08 No Jd 2 tab, Mem oria en-hydrocod 0-09 Sebastian Route: PO, l one 325 18:10: Abdunnur Drug Form: [place] mg-10 mg 00 TAB, oral tablet Dosing Weight 51.364, kg, Q4H, PRN Pain Score 7-10, Start date: 05/09/13 13:10:00, Duration: 30 day, Stop date: 06/08/13 13:09:00Do not exceed 4gm/day of acetaminop hen. (Same as: [place] 325/10) Saline 2012-08 No Jui-En 5 ml, Memoria Flush 0.9% 0- Edward Adkins Route: l 18:10: IVP, Drug [place] 00 Form: INJ, Dosing Weight 51.364, kg, [...] day, Stop date: 06/08/13 13:09:00(S john as: [place] 325/5) Do not exceed 4gm/day of acetaminop [...] emoria ne 0-09 Gee Route: l 17:36: Kiran IVP, [place] 00 Q5Min, Dosing Weight 51.364, kg, PRN [...] Mem oria 0-09 Gee Route: l 17:36: [place] IVP, [place] 00 Q2MIN, Dosing Weight 51.364, kg, PRN Narcotic Reversal, Start date: 05/09/13 12:36:00, Duration: 8 doses or times, Stop date: Limited # of times flumazenil 2012-08 No Noah 0.2 mg, Me moria 0-09 Gee Route: l 17:36: [place] IVP, PRN, Randi nn 00 Dosing Weight 51.364, kg, PRN Benzodiaze pine Reversal, Initial dose, Start date: 05/09/13 12:36:00, Duration: 30 day, Stop date: 06/08/13 11:35:00 hydromorpho 2012-08 No Noah 0.5 mg, M emoria ne 0-09 Gee Route: l 17:36: [place] IVP, [place] 00 Q5Min, Dosing Weight 51.364, [...] Mem oria 0-09 Gee Route: l 17:36: [place] IVP, [place] 00 Q2MIN, Dosing Weight 51.364, kg, PRN Narcotic Reversal, Start date: 05/09/13 12:36:00, Duration: 8 doses or times, Stop date: Limited # of times flumazenil 2012-08 No Noah 0.2 mg, Me moria 0-09 Gee Route: l 17:36: [place] IVP, PRN, Randi nn 00 Dosing Weight 51.364, kg, PRN Benzodiaze pine Reversal, Initial dose, Start date: 05/09/13 12:36:00, Duration: 30 day, Stop date: 06/08/13 11:35:00 hydromorpho 2012-08 No Noah 0.5 mg, M emoria ne 0-09 Gee Route: l 17:36: [place] IVP, [place] 00 Q5Min, Dosing Weight 51.364, kg, PRN [...] Mem oria 0-09 Gee Route: l 17:36: [place] IVP, [place] 00 Q2MIN, Dosing Weight 51.364, kg, PRN Narcotic Reversal, Start date: 05/09/13 12:36:00, Duration: 8 doses or times, Stop date: Limited # of times flumazenil 2012-08 No Noah 0.2 mg, Me moria 0-09 Gee Route: l 17:36: [place] IVP, PRN, Randi nn 00 Dosing Weight 51.364, kg, PRN Benzodiaze pine Reversal, Initial dose, Start date: 05/09/13 12:36:00, Duration: 30 day, Stop date: 06/08/13 11:35:00 hydromorpho 2012-08 No Noah 0.5 mg, M emoria ne 0-09 Gee Route: l 17:36: Kiran IVP, [place] 00 Q5Min, Dosing Weight 51.364, kg, PRN Pain Score 7-10, Start date: 05/09/13 12:36:00, Duration: 5 doses or times, Stop date: Limited # of times cefazolin 2012-08 No Feliciano 2 gm, 50 Mem oria 0-09 Jeff mL, Route: l 04:00: IVPB, Drug [place] 00 form: INJ, PRE OP, Start date: 05/08/13 23:00:00, Duration: 1 day, Stop date: 05/09/13 22:59:00 cefazolin 2012-08 No Feliciano 2 gm, 50 Mem oria 0-09 Jeff mL, Route: l 04:00: IVPB, Drug [place] 00 form: INJ, PRE OP, Start date: 05/08/13 23:00:00, Duration: 1 day, Stop date: 05/09/13 22:59:00 cefazolin 2012-08 No Feliciano 2 gm, 50 Mem oria 0-09 Jeff mL, Route: l 04:00: IVPB, Drug [place] 00 form: INJ, PRE OP, Start date: 05/08/13 23:00:00, Duration: 1 day, Stop date: 05/09/13 22:59:00 cefazolin 2012-08 No Feliciano 2 gm, 50 Mem oria 0-09 Jeff mL, Route: l 04:00: IVPB, Drug form: INJ, PRE OP, Start date: 05/08/13 [...] PO ONE C PO QHS QHS QHS Vital Signs Vital Name Observation Time Observation Value Comments Source Heart Rate 2023-05-23 20:34:00 [facility] Systolic (mm Hg) 2023-05-23 20:34:00 [facility] Diastolic (mm Hg) 2023-05-23 20:34:00 [facility] Height 2023-05-23 20:34:00 165.1 cm [facility] Weight 2023-05-23 20:34:00 [facility] BMI Calculated 2023-05-23 20:34:00 [facility] Systolic (mm Hg) 2023-04-21 19:35:00 [facility] Diastolic (mm Hg) 2023-04-21 19:35:00 [facility] Height 2023-04-14 14:02:00 5 [ft_i] [facility] Weight 2023-04-14 14:02:00 [facility] BMI Calculated 2023-04-14 14:02:00 [facility] Height 2023-04-13 16:12:00 165.1 cm [facility] Weight 2023-04-13 16:12:00 [facility] BMI Calculated 2023-04-13 16:12:00 [facility] Temperature Oral (F) 2023-01-17 18:57:00 98.3 F [facility] Heart Rate 2023-01-17 18:57:00 [facility] Systolic (mm Hg) 2023-01-17 18:57:00 [facility] Diastolic (mm Hg) 2023-01-17 18:57:00 [facility] Height 2023-01-17 18:57:00 165.1 cm [facility] Weight 2023-01-17 18:57:00 [facility] BMI Calculated 2023-01-17 18:57:00 [facility] Height 2023-01-04 18:56:00 165.1 cm [facility] Weight 2023-01-04 18:56:00 [facility] BMI Calculated 2023-01-04 18:56:00 [facility] Heart Rate 2014-10-31 17:17:00 [facility] Respitory Rate 2014-10-31 17:17:00 [facility] Systolic (mm Hg) 2014-10-31 17:17:00 [facility] Diastolic (mm Hg) 2014-10-31 17:17:00 [facility] Temperature Oral (F) 2014-10-31 17:17:00 98.3 F [facility] Systolic (mm Hg) 2014-10-31 14:16:00 [facility] Diastolic (mm Hg) 2014-10-31 14:16:00 [facility] Respitory Rate 2014-10-31 14:16:00 [facility] Temperature Oral (F) 2014-10-31 14:16:00 97.4 F [facility] Heart Rate 2014-10-31 14:16:00 [facility] Respitory Rate 2014-10-31 08:25:00 [facility] Systolic (mm Hg) 2014-10-31 08:25:00 [facility] Diastolic (mm Hg) 2014-10-31 08:25:00 [facility] Heart Rate 2014-10-31 08:25:00 [facility] Temperature Oral (F) 2014-10-31 08:25:00 98.3 F [facility] Weight 2014-10-29 18:57:00 [facility] BMI Calculated 2014-10-29 18:57:00 [facility] Height 2014-10-29 18:57:00 165.1 cm [facility] BMI Calculated 2014-10-29 11:46:00 [facility] Weight 2014-10-29 11:46:00 [facility] Height 2014-10-29 11:46:00 165.1 cm [facility] Systolic (mm Hg) 2014-07-16 13:10:00 [facility] Temperature Oral (F) 2014-07-16 13:10:00 97.7 F [facility] Heart Rate 2014-07-16 13:10:00 [facility] Respitory Rate 2014-07-16 13:10:00 [facility] Diastolic (mm Hg) 2014-07-16 13:10:00 [facility] Heart Rate 2014-07-16 10:41:00 [facility] Respitory Rate 2014-07-16 10:41:00 [facility] Systolic (mm Hg) 2014-07-16 10:41:00 [facility] Temperature Oral (F) 2014-07-16 10:41:00 98 F [facility] Diastolic (mm Hg) 2014-07-16 10:41:00 [facility] [place] Systolic (mm Hg) 2014-07-16 06:01:00 [facility] [place] Respitory Rate 2014-07-16 06:01:00 [facility] [place] Diastolic (mm Hg) 2014-07-16 06:01:00 [facility] Temperature Oral (F) 2014-07-16 06:01:00 97.5 F [facility] Heart Rate 2014-07-16 06:01:00 [facility] Height 2014-07-11 20:53:00 165.1 cm [facility] [place] BMI Calculated 2014-07-11 20:53:00 [facility] Weight 2014-07-11 20:53:00 [facility] Height 2014-05-15 19:36:00 165.1 cm [facility] Weight 2014-05-15 19:36:00 [facility] [place] BMI Calculated 2014-05-15 19:36:00 [facility] [place] Temperature Oral (F) 2014-05-06 21:16:00 98.6 F [facility] Heart Rate 2014-05-06 21:16:00 [facility] [place] Respitory Rate 2014-05-06 21:16:00 [facility] [place] Systolic (mm Hg) 2014-05-06 21:16:00 [facility] [place] Diastolic (mm Hg) 2014-05-06 21:16:00 [facility] Weight 2014-05-06 18:09:00 [facility] Diastolic (mm Hg) 2014-05-06 18:09:00 [facility] Temperature Oral (F) 2014-05-06 18:09:00 98.2 F [facility] Systolic (mm Hg) 2014-05-06 18:09:00 [facility] [place] Respitory Rate 2014-05-06 18:09:00 [facility] Heart Rate 2014-05-06 18:09:00 [facility] [place] Weight 2013-06-05 14:57:00 [facility] Height 2013-06-05 14:57:00 162.56 cm [facility] Respitory Rate 2013-06-01 21:24:00 [facility] [place] Heart Rate 2013-06-01 21:24:00 [facility] [place] Temperature Oral (F) 2013-06-01 21:24:00 96.7 F [facility] [place] Diastolic (mm Hg) 2013-06-01 21:24:00 [facility] [place] Systolic (mm Hg) 2013-06-01 21:24:00 [facility] [place] Diastolic (mm Hg) 2013-06-01 16:52:00 [facility] Heart Rate 2013-06-01 16:52:00 [facility] [place] Respitory Rate 2013-06-01 16:52:00 [facility] [place] Systolic (mm Hg) 2013-06-01 16:52:00 [facility] [place] Temperature Oral (F) 2013-06-01 16:52:00 98.7 F [facility] [place] Temperature Oral (F) 2013-06-01 13:33:00 98.4 F [facility] Diastolic (mm Hg) 2013-06-01 13:33:00 [facility] [place] Heart Rate 2013-06-01 13:33:00 [facility] Respitory Rate 2013-06-01 13:33:00 [facility] [place] Systolic (mm Hg) 2013-06-01 13:33:00 [facility] [place] Height 2013-05-31 20:26:00 165.1 cm [facility] Weight 2013-05-31 20:26:00 [facility] Respitory Rate 2013-05-13 16:19:00 [facility] Heart Rate 2013-05-13 16:19:00 [facility] [place] Temperature Oral (F) 2013-05-13 16:19:00 96.8 F [facility] Diastolic (mm Hg) 2013-05-13 16:19:00 [facility] [place] Systolic (mm Hg) 2013-05-13 16:19:00 [facility] [place] Respitory Rate 2013-05-13 14:11:00 [facility] [place] Diastolic (mm Hg) 2013-05-13 14:11:00 [facility] [place] Systolic (mm Hg) 2013-05-13 14:11:00 [facility] [place] Heart Rate 2013-05-13 14:11:00 [facility] [place] Temperature Oral (F) 2013-05-13 14:11:00 96.9 F [facility] Temperature Oral (F) 2013-05-13 10:30:00 98.4 F [facility] Respitory Rate 2013-05-13 10:30:00 [facility] Systolic (mm Hg) 2013-05-13 10:30:00 [facility] [place] Heart Rate 2013-05-13 10:30:00 [facility] Diastolic (mm Hg) 2013-05-13 10:30:00 [facility] [place] Weight 2013-05-09 11:49:00 [facility] [place] Height 2013-05-09 11:49:00 165.1 cm [facility] [place] Weight 2013-05-08 16:29:00 [facility] Height 2013-05-08 16:29:00 165.1 cm [facility] [place] Heart Rate 2013-04-04 12:54:00 [facility] Temperature Oral (F) 2013-04-04 12:54:00 97.7 F [facility] [place] Diastolic (mm Hg) 2013-04-04 12:54:00 [facility] [place] Systolic (mm Hg) 2013-04-04 12:54:00 [place] [facility] [place] Respitory Rate 2013-04-04 12:54:00 [facility] [place] Respitory Rate 2013-04-04 02:39:00 [facility] [place] Systolic (mm Hg) 2013-04-04 02:39:00 [place] [facility] [place] Diastolic (mm Hg) 2013-04-04 02:39:00 [facility] Temperature Oral (F) 2013-04-04 02:39:00 97.5 F [facility] [place] Weight 2013-04-03 14:28:00 [facility] [place] Height 2013-04-03 14:28:00 172.72 cm [facility] [place] Procedures Procedure Date / Time Performing Clinician Source Performed Pap Smear 2022-09-01 06:00:00 [facility] raya section 2022-07-01 06:00:00 [facility] barbaraann [id number] 2022-07-01 00:00:00 [facility] [id number] 2021-03-03 00:00:00 NATY [facility] Creation of REHABILITATION CASEWORKER shunt 2014-07-01 00:00:00 Raad enrique [place] Creation of 2014-07-01 00:00:00 Gerardo Her raya cystoperitoneal shunt Other Excision or 2013-05-09 05:00:00 Gerardo Owens marcelodorothy Destruction of Lesion or Tissue of Brain Other Immobilization, 2013-05-09 05:00:00 Jonel Grijalva Pressure, and Attention to Wound Fenestration of cyst of Gerardo Sorenson arachnoid Removal of ovarian cyst Gerardo Sorenson Delivery [facility] En[facility]ters Start End Encounter Admission Attending Care Care Encounter Source Date/Time Date/Time Type Type Clinicians Facility Department ID 2023-06-06 Outpatient nullFlavo [place] [id number] [facility] 08:24:36 r Medical 06 l Deb Sorenson 2023-04-14 Outpatient OMA STOKES [id number] MH 10:58:36 KELLEE 01 [facility] 2021-07-10 Outpatient nullFlavo [facility] [id number] Mem[facility] 19:18:53 r Medical 06 l Deb Sorenson 2020-12-04 Inpatient LAUREL Calderon, [facility] [id number] [facility] 10:52:[address] [place] [address] 2023-06-27 2023-06-27 Outpatient ROSIO AVELAR [id number] [facility] 15:20:00 15:20:00 05 iva Sorenson 2023-05-23 2023-05-24 Outpatient ROSIO [facility] [id number] [facility]oria 20:00:00 04:59:59 Urology 04 l Ann-Marie Bryan nn Time Share 2023-05-23 2023-05-24 Outpt Diag IE [facility] [id number] Memoria 18:44:00 04:59:00 Services Outpatient 02 iva Saini 2023-05-23 2023-05-23 Outpatient MONY Stokes [id number] 15:00:00 23:59:59 Kellee Enrique 2023-05-23 2023-05-23 Outpatient ALLISON StokesP [id number] 13:44:00 23:59:00 Kellee Enrique 2023-05-23 2023-05-23 Outpatient MHIE IE [id number] Memoria 15:00:00 15:00:00 04 iva Sorenson 2023-04-21 2023-04-21 Day MHIE [facility] [id number] Memoria 14:03:00 19:45:00 Surgery [place] 01 l [facility] 2023-04-21 2023-04-21 [facility] [id number] 09:03:00 14:45:00 Kellee L 2023-04-18 2023-04-19 Ambulatory MHIE MG [id number] Memoria 14:30:00 04:59:59 Pre-Reg Urology 03 iva Bryan nn Time Share 2023-04-18 2023-04-18 Outpatient VISIT, MHMG MG [id number] 09:30:00 23:59:59 NURSE UABINH 2023-04-18 2023-04-18 Outpatient MHIE MHIE [id number] Memoria 09:30:00 09:30:00 03 iva [place] 2023-04-13 2023-04-14 Outpatient MHIE MG [id number] Memoria 15:30:00 04:59:59 Urology 02 iva Bryan nn Time Share 2023-04-13 2023-04-13 Outpatient Zak MONY MG [id number] 10:30:00 23:59:59 Kellee L 2023-04-13 2023-04-13 Outpatient MHIE IE [id number] Memoria 10:30:00 10:30:00 02 iva Sorenson 2023-03-01 2023-03-02 Outpt Diag MHIE [facility] [id number] Memoria 17:32:00 04:59:00 Services Outpatient 01 l Jennifer Sorenson [place] 2023-03-01 2023-03-01 Outpatient Zak, CAITOIP MHOIP [id number] 12:32:00 23:59:00 Kellee L 2023-01-17 2023-01-18 Outpatient MHIE [facility] [id number] Memoria 19:00:00 04:59:59 Urology 01 iva Bryan nn Time Share 2023-01-17 2023-01-17 Outpatient MONY Stokes [facility] [id number] 14:00:00 23:59:59 Kellee L 2023-01-17 2023-01-17 Outpatient MHIE MHIE [id number] Memoria 14:00:00 14:00:00 01 iva Sorenson 2023-01-07 2023-01-08 Outpt Diag MHIE [facility] [id number] Memoria 19:14:00 04:59:00 Services Outpatient 00 l Jennifer Sorenson [place] 2023-01-07 2023-01-07 Outpatient CAIT StokesOIP MHOIP [id number] 14:14:00 23:59:00 Kellee L 2023-01-04 2023-01-05 Outpatient MHIE MG [id number] Memoria 18:45:00 04:59:59 Urology 00 l Ann-Marie Bryan Time [facility] 2023-01-04 2023-01-04 Outpatient MONY Stokes [facility] [id number] 13:45:00 23:59:59 Kellee L 2023-01-04 2023-01-04 Outpatient MHIE IE [id number] [facility]oria 13:45:00 13:45:00 00 iva Sorenson 2022-07-01 2022-07-03 Inpatient BRUNA Jensen OB [id number] [facility] 11:40:00 17:08:00 [facility]22-[facility] 2022-05-21 Outpatient GC_TNC_Lovi PRIV PRIV [id number] [facility] 00:00:00 00:00:00 tt_S [id number] Medica l 2022-04-29 2022-04-29 Outpatient GC_TNC_Lovi PRIV PRIV [id number] [facility] 00:00:00 00:00:00 tt_S [id number] Medica l 2022-04-29 2022-04-29 Merrill Damon [facility] [id number] [facility] 00:00:00 00:00:00 Son Zamudio - Boby herrera MD: [id number] GC_TNC_[facility], Office* [address], [place] [address] , Ph. 2022-04-28 2022-04-28 Outpatient GC_TNC_Lovi PRIV PRIV [id number] [facility] 00:00:00 00:00:00 tt_S [id number] Medica l 2022-01-14 2022-01-14 Outpatient GC_TNC_Lovi PRIV PRIV [id number] [facility] 00:00:00 00:00:00 tt_S [id number] Medica l 2020-05-09 2020-05-09 Outpatient BRUNA AllenCL ADMI [id number] [facility] 14:00:00 14:00:[address] [place] [address] 2019-01-26 2019-01-26 Patient Doctor LUANN [id number] [facility] 00:00:00 00:00:00 Secure Msg Unassigned, ANNE [id number] [facility] [id number] Dragan as [phone] [address] 2019-01-26 2019-01-26 Patient Doctor LUANN Carolyne.2.840.114 [id number] 00:00:00 00:00:00 Secure Msg Unassigned, ANNE 350.1.13.10 [facility] [id number] [id number] 2016-04-27 2016-04-28 Outpt Diag nullFlavo [facility] [id number] Mem[facility] 15:36:00 04:59:00 Services r Outpatient 09 l Imaging [facility] [place] 2016-04-27 2016-04-28 Outpt Diag nullFlavo [facility] [id number] Mem[facility] 15:36:00 04:59:00 Services r Outpatient 09 l Imaging [facility] [place] 2016-04-27 2016-04-27 Outpatient Shen MHOIP M[facility]IP [id number] 10:36:00 23:59:00 Raisa Savage 2015-10-28 2015-10-28 Outpatient MHIE MHIE [id number] Memoria 10:00:00 10:00:00 Vania Sorenson 2015-10-28 2015-10-28 Outpatient MHIE MHIE [id number] [facility]oria 10:00:00 10:00:00 02 [facility] 2015-10-14 2015-10-14 Outpatient IE IE [id number] Memoria 10:30:00 10:30:00 01 [facility] 2015-10-14 2015-10-14 Outpatient IE IE [id number] Memoria 10:30:00 10:30:00 01 [facility] 2015-04-28 2015-04-29 Outpt Diag nullFlavo [facility] [id number] Memoria 15:17:00 04:59:00 Services r Outpatient 07 l Imaging [facility] 2015-04-28 2015-04-29 Outpt Diag nullFlavo [facility] [id number] Memoria 15:17:00 04:59:00 Services r Outpatient 07 [facility] 2015-04-28 2015-04-28 Outpatient Jeff, [facility] [id number] 10:17:00 23:59:00 Feliciano 07 2015-04-28 2015-04-28 Outpatient [facility] [id number] Memoria 12:00:00 12:00:00 00 [facility] 2015-04-28 2015-04-28 Outpatient [facility] [id number] Memoria 12:00:00 12:00:00 00 [facility] 2014-10-29 2014-10-31 Inpatient nullFlavo [facility] [id number] Memoria 10:47:00 20:30:[address] 2014-10-29 2014-10-31 Inpatient nullFlavo [facility] [id number] Memoria 10:47:00 20:30:[address] 2014-10-29 2014-10-31 [facility] 2.16.840. 2.16.840.1 . [id number] 05:47:00 15:30:00 Chanel [id number]. [id number] Genoveva 3.615.0.1 5.0.148 95 7935-01-23 2014-08-24 Outpt Diag nullFlavo [facility] [id number] Memoria 19:12:00 05:59:00 Services r Outpatient 04 l Imaging [facility] 2014-08-23 2014-08-24 Outpt Diag nullFlavo [facility] [id number] Memoria 19:12:00 05:59:00 Services r Outpatient 04 l Imaging [facility] 2014-08-23 2014-08-23 Outpatient Jeff, 2.16.840. 2.16.840.1. 4 [id number] 13:12:00 23:59:00 Feliciano 1.850938. [id number] 04 3.615.0.1 5.0.528 42 1709-01-22 2014-08-23 Outpt Diag nullFlavo [facility] [id number] Memoria 19:39:00 05:59:00 Services r Outpatient 03 l Imaging [facility] 2014-08-22 2014-08-23 Outpt Diag nullFlavo [facility] [id number] Memoria 19:39:00 05:59:00 Services r Outpatient 03 l [facility] 2014-08-22 2014-08-22 Outpatient Jeff, 2.16.840. 2.16.840.1. 4 [id number] 13:39:00 23:59:00 Feliciano 1.870912. [id number] 03 3.615.0.1 5.0.998 58 5540-12-15 2014-07-16 Inpatient nullFlavo [facility] [id number] Memoria 11:37:00 17:10:[address] 2014-07-15 2014-07-16 Inpatient nullFlavo [facility] [id number] Memoria 11:37:00 17:10:[address] 2014-07-15 2014-07-16 Outpatient Jeff, 2.16.840. 2.16.840.1. 4 [id number] 05:37:00 11:10:00 Feliciano 1.243010. [id number] 09 3.615.0.1 5.0.336 87 4443-10-15 2014-05-16 Outpatient nullFlavo [place] [id number] Memoria 17:58:00 04:59:[address] 2014-05-15 2014-05-16 Outpatient nullFlavo [place] [id number] Memoria 17:58:00 04:59:[address] 2014-05-15 2014-05-15 Outpatient Hope, 2.16.840. 2.16.840.1. 4 [id number] 12:58:00 23:59:00 [place] [id number]. [id number] 08 Olpez 3.615.0.1 5.0.697 16 2457-10-06 2014-05-06 [facility] [id number] Memoria 17:40:00 21:19:00 Emergency r [address] 2014-05-06 2014-05-06 [facility] [id number] Memoria 17:40:00 21:19:00 Emergency r [address] 2014-05-06 2014-05-06 Outpatient Vista, 2.16.840. 2.16.840.1. [id number] 12:40:00 16:19:00 Indio Reynolds 1.626838. [id number] 07 3.615.0.1 5.0.420 74 3915-12-12 2013-07-12 Outpatient 2.16.840. 2.16.840.1. 4 [id number] [facility] 11:24:00 23:59:00 1.517587. [id number] Outpati 3.615.0.1 5.0.100 ent 00 [place] 2013-06-05 2013-06-05 Outpatient 2.16.840. 2.16.840.1. 4 [id number] [facility] 08:08:00 23:59:00 1.819034. [id number] l 3.615.0.1 5.0.100 Sun[facility] n 00 [facility]ospita l 2013-05-31 2013[facility]06[facility] [id number] [facility] 15:25:00 18:20:00 [facility] 05 [facility] 2013-05-31 2013-06-01 Outpatient 2.16.840. 2.16.840.1. 4 [id number] [facility] 15:25:00 18:20:00 1.422514. [id number] l 3.615.0.1 5.0.100 Sundeep n 00 Hospita l 2013-05-31 2013-06-01 OU nullFlavo [facility] [id number] Memoria 15:25:00 18:20:00 r [facility] 05 [facility] 2013-05-09 2013-05-13 Inpatient nullFlavo [facility] [id number] Memoria 05:45:00 13:00:00 r [facility] 04 [facility] 2013-05-09 2013-05-13 Outpatient 2.16.840. 2.16.840.1. 4 [id number] [facility] 05:45:00 13:00:00 1.237694. [id number] l 3.615.0.1 5.0.100 Sundeep n 00 Hospita l 2013-05-09 2013-05-13 Outpatient 2.16.840. 2.16.840.1. 4 [id number] [facility] 05:45:00 13:00:00 1.303569. 663208.3.61 l 3.615.0.1 5.0.100 Sun[facility] n 00 Hospita l 2013-05-09 2013-05-13 Outpatient 2.16.840. 2.16.840.1. 4 [id number] [facility] 05:45:00 13:00:00 1.854006. 071600.3.61 l 3.615.0.1 5.0.100 Sun[facility] n 00 Hospita l 2013-05-09 2013-05-13 Outpatient 2.16.840. 2.16.840.1. 4 [id number] [facility] 05:45:00 13:00:00 1.711366. [id number] l 3.615.0.1 5.0.100 [facility] n 00 Hospita l 2013-05-09 2013-05-13 Outpatient 2.16.840. 2.16.840.1. 4 [id number] [facility] 05:45:00 13:00:00 1.873479. [id number] l 3.615.0.1 5.0.100 Sundeep n 00 Hospita 2013-05-09 2013-05-13 Inpatient nullFlavo [facility] [id number] Memoria 05:45:00 13:00:00 r Medical 04 l [facility] 2013-04-03 2013-04-04 ALVA nullFlavo [facility] [id number] Memoria 09:16:00 10:10:00 r Medical 03 [facility] 2013-04-03 2013-04-04 ALVA nullFlavo [facility] [id number] Memoria 09:16:00 10:10:00 r Medical 03 [facility] Results Test Description Test Time Test Comments Results Result Comments Source RADRPT 2023-05-24 01:08:50 Test Item Value Reference Range Interpretation Comme [facility] RADRPT (test code = RADRPT) PROCEDURE INFORMATION: Exam: XR Abdomen Exam date and time: 05/23/2023 2:10 PM Age: 32 years old Clinical indication: Calculus of kidney; Additional info: /n20.0 calculus of kidney TECHNIQUE: Imaging protocol: Radiologic exam of the abdomen. Views: Frontal supine view of the abdomen. 1 View. COMPARISON: ABDOMEN AP DX 04/21/2023 9:25 AM FINDINGS: Tubes, catheters and devices: Ventriculoperitoneal catheter terminates over the right side of the pelvis. Gastrointestinal tract: Nonspecific gas pattern. Organs: No organomegaly. No pathologic calcification. Bones/joints: No significant abnormality. Other findings: Punctate calcification projects over the upper pole the right kidney, approximately 2 mm. Similar density questioned over the left kidney. IMPRESSION: 1. No acute finding. 2. Findings compatible with nephrolithiasis. Paxton Mckeon MD On 05/23/2023 20:07:46; [id number] [facility] [id number] 20:55:00 Test Item Value Reference Range Interpretation Comments Result 2 (Urine Culture) See Result Comment (test code = Result 2 (Urine Culture)) [facility] [id number] 20:55:00 Test Item Value Reference Range Interpretation Comments UA Color (test code = UA Color) DARK YELLOW [facility] [id number] 20:55:00 Test Item Value Reference Range Interpretation Comments UA Turbidity (test code = UA Turbidity) CLEAR [facility] [id number] 20:55:00 Test Item Value Reference Range Interpretation Comments UA Spec Grav (test code = UA Spec 1.015 1 1.001-1.035 Grav) [facility] [id number] 20:55:00 Test Item Value Reference Range Interpretation Comments UA pH (test code = UA pH) 6.0 1 5.0-8.0 [facility] [id number] 20:55:00 Test Item Value Reference Range Interpretation Comments UA Glucose (test code = UA Glucose) NEGATIVE [facility] [id number] 20:55:00 Test Item Value Reference Range Interpretation Comments UA Bili (test code = UA Bili) NEGATIVE [facility] [id number] 20:55:00 Test Item Value Reference Range Interpretation Comments UA Ketones (test code = UA Ketones) NEGATIVE [facility] [id number] 20:55:00 Test Item Value Reference Range Interpretation Comments UA Blood (test code = UA Blood) NEGATIVE [facility] [id number] 20:55:00 Test Item Value Reference Range Interpretation Comments UA Protein (test code = UA Protein) NEGATIVE [facility] [id number] 20:55:00 Test Item Value Reference Range Interpretation Comments UA Nitrite (test code = UA Nitrite) NEGATIVE [facility] [id number] 20:55:00 Test Item Value Reference Range Interpretation Comments UA Leuk Est (test code = UA Leuk NEGATIVE Est) [facility] [id number] 20:55:00 Test Item Value Reference Range Interpretation Comments UA WBC (test code = UA WBC) NONE SEEN [facility] [id number] 20:55:00 Test Item Value Reference Range Interpretation Comments UA RBC (test code = UA RBC) NONE SEEN [facility] [id number] 20:55:00 Test Item Value Reference Range Interpretation Comments UA Sq Epi (test code = UA Sq Epi) NONE SEEN [facility] [id number] 20:55:00 Test Item Value Reference Range Interpretation Comments UA Bacteria (test code = UA NONE SEEN Bacteria) [facility] [id number] 20:55:00 Test Item Value Reference Range Interpretation Comments UA Hyal Cast (test code = UA Hyal NONE SEEN Cast) [facility] [id number] 20:55:00 Test Item Value Reference Range Interpretation Comments UA Comment 2 (test code = UA SEE COMMENT Comment 2) [facility] [id number] 15:20:06 Test Item Value Reference Range Interpretation Comments RADRPT (test code PROCEDURE INFORMATION: = RADRPT) Exam: XR Abdomen Exam date and time: 04/21/2023 9:10 AM Age: 32 years old Clinical indication: Pain; Additional info: Kidney stones/preop exam TECHNIQUE: Imaging protocol: Radiologic exam of the abdomen. Views: Frontal supine view of the abdomen. 1 View. COMPARISON: ABDOMEN AP DX 03/01/2023 1:04 PM FINDINGS: Tubes, catheters and devices: Partially imaged left REHABILITATION CASEWORKER shunt terminating in the right lower quadrant with no visible complication. Gastrointestinal tract: Nonobstructive bowel gas pattern without pneumatosis. Top normal stool burden by visual estimate. Organs: Few bilateral calcifications are noted in the right and left renal bed. No definite calcifications noted along the expected course of the ureters. Vasculature: Benign bilateral pelvic phleboliths. Bones/joints: No destructive bone lesions. Soft tissues: No soft tissue edema, air or radiopaque foreign body. IMPRESSION: 1. Probable bilateral nephrolithiasis as described. 2. No calcifications along the expected course of the ureters. 3. No distention of the bladder shadow to suggest urinary retention. Torres Herzog MD On 04/21/2023 10:18:46; [id number] [facility] [id number] 14:42:00 Test Item Value Reference Range Interpretation Comments U Preg (test code = U Negative (04/21/23 9:42 Preg) AM) [facility] [id number] 18:24:00 Test Item Value Reference Range Interpretation Comments Glucose Lvl (test code = Glucose Lvl) 89 65-99 [facility] CenterKsunlqpUDHNFYIZR4731-20-73 18:24:00 Test Item Value Reference Range Interpretation Comments BUN (test code = BUN) 8 7-25 [facility] [id number] 18:24:00 Test Item Value Reference Range Interpretation Comments Creatinine Lvl (test code = Creatinine 0.75 0.50-0.97 Lvl) [facility] [id number] 18:24:00 Test Item Value Reference Range Interpretation Comments eGFR (test code = eGFR) 107 [facility] Cen[id number] 18:24:00 Test Item Value Reference Range Interpretation Comments B/C Ratio (test code = B/C Ratio) SEE NOTE: 6 [facility] [id number] 18:24:00 Test Item Value Reference Range Interpretation Comments Sodium Lvl (test code = Sodium Lvl) 138 135-146 [facility] CenterBrdfxfwWWPREMGZQ0211-13-71 18:24:00 Test Item Value Reference Range Interpretation Comments Potassium Lvl (test code = Potassium 4.1 3.5-5.3 Lvl) [facility] CenterNdjrabtLJDMJIGQQ1706-40-07 18:24:00 Test Item Value Reference Range Interpretation Comments Chloride Lvl (test code = Chloride Lvl) 102 98-110 [facility] CenterWrdaxngGTUTAJATQ5836-68-10 18:24:00 Test Item Value Reference Range Interpretation Comments CO2 (test code = CO2) 26 20-32 [facility] CenterCniofdqFTCAPDWMW2208-82-28 18:24:00 Test Item Value Reference Range Interpretation Comments Calcium Lvl (test code = Calcium Lvl) 10.1 8.6-10.2 [facility]ngveysPCEWVNEANL7935-29-87 18:24:00 Test Item Value Reference Range Interpretation Comments WBC (test code = WBC) 9.8 3.8-10.8 [facility] HospitalKwowdgnFGFQZCUDVZ9921-08-42 18:24:00 Test Item Value Reference Range Interpretation Comments RBC (test code = RBC) 5.22 3.80-5.10 [facility] HospitalIearqrpVMGZVVVYHU0541-48-16 18:24:00 Test Item Value Reference Range Interpretation Comments Hgb (test code = Hgb) 15.6 11.7-15.5 [facility] HospitalNbrureaPJATETCGDI6220-25-49 18:24:00 Test Item Value Reference Range Interpretation Comments Hct (test code = Hct) 46.0 35.0-45.0 [facility] HospitalMcyxzrtRWKRRBSNRL8818-99-02 18:24:00 Test Item Value Reference Range Interpretation Comments MCV (test code = MCV) 88.1 80.0-100.0 [id number] 18:24:00 Test Item Value Reference Range Interpretation Comments MCH (test code = MCH) 29.9 pg 27.0-33.0 [id number] 18:24:00 Test Item Value Reference Range Interpretation Comments MCHC (test code = MCHC) 33.9 32.0-36.0 [id number] 18:24:00 Test Item Value Reference Range Interpretation Comments RDW (test code = RDW) 11.5 11.0-15.0 [facility] [id number] 18:24:00 Test Item Value Reference Range Interpretation Comments Platelet (test code = Platelet) 314 140-400 [facility]WuxgkegRJGGTQGBXH7146-72-10 18:24:00 Test Item Value Reference Range Interpretation Comments MPV (test code = MPV) 11.0 7.5-12.5 [facility]ZktfdbpUXSYWEZYKB0945-05-40 18:24:00 Test Item Value Reference Range Interpretation Comments Neutrophils # (test code = Neutrophils 6821 1950-8174 #) [facility] HospitalNqlxxxmQBDGHLIPXM5206-98-10 18:24:00 Test Item Value Reference Range Interpretation Comments Lymphocytes # (test code = Lymphocytes 2391 850-3900 #) [facility] HospitalMjzzrnuVSJVKADWFP5260-93-70 18:24:00 Test Item Value Reference Range Interpretation Comments Monocytes # (test code = Monocytes #) 402 200-950 [facility] HospitalVmbptihOXFOBGCRIT3199-82-26 18:24:00 Test Item Value Reference Range Interpretation Comments Eosinophils # (test code = Eosinophils 147 15-500 #) [facility] HospitalSsdfbnpOJHKIWMDXI5405-60-80 18:24:00 Test Item Value Reference Range Interpretation Comments Basophils # (test code = Basophils #) 39 <=200 [facility] HospitalVeqcxctPXRUINXIXN9617-23-44 18:24:00 Test Item Value Reference Range Interpretation Comments Segs (test code = Segs) 69.6 [facility] HospitalGlvexzaLEBJSOBAHV6305-63-97 18:24:00 Test Item Value Reference Range Interpretation Comments Lymphocytes (test code = Lymphocytes) 24.4 [facility] HospitalSgnbmeqRAPFVPTOSV7786-96-51 18:24:00 Test Item Value Reference Range Interpretation Comments Monocytes (test code = Monocytes) 4.1 [facility] HospitalVocdvaiMEQROUEFKQ8621-91-62 18:24:00 Test Item Value Reference Range Interpretation Comments Eosinophils (test code = Eosinophils) 1.5 [facility] HospitalYewrwpaHDVVVGTCYK1118-01-43 18:24:00 Test Item Value Reference Range Interpretation Comments Basophils (test code = Basophils) 0.4 [facility] HospitalKmfxfktJMBSUHXGVZ2386-60-09 18:24:00 Test Item Value Reference Range Interpretation Comments PTT (test code = PTT) 30 s 23-32 [facility]yivrohMGWPUZMRFA1868-42-00 18:24:00 Test Item Value Reference Range Interpretation Comments INR (test code = INR) 1.0 [facility]FNM[facility]LSS3847-81-83 18:24:00 Test Item Value Reference Range Interpretation Comments PT (test code = PT) 10.4 s 9.0-11.5 [facility] [id number] 18:24:00 Test Item Value Reference Range Interpretation Comments Result 2 (Urine Culture) See Result Comment (test code = Result 2 (Urine Culture)) [facility] AND [id number] 18:24:00 Test Item Value Reference Range Interpretation Comments UA Color (test code = UA Color) YELLOW [facility] AND [id number] 18:24:00 Test Item Value Reference Range Interpretation Comments UA Turbidity (test code = UA Turbidity) CLEAR [facility] AND [id number] 18:24:00 Test Item Value Reference Range Interpretation Comments UA Spec Grav (test code = UA Spec 1.004 1 1.001-1.035 Grav) [facility] AND [id number] 18:24:00 Test Item Value Reference Range Interpretation Comments UA pH (test code = UA pH) 6.5 1 5.0-8.0 [facility] AND [id number] 18:24:00 Test Item Value Reference Range Interpretation Comments UA Glucose (test code = UA Glucose) NEGATIVE [facility] AND [id number] 18:24:00 Test Item Value Reference Range Interpretation Comments UA Bili (test code = UA Bili) NEGATIVE [facility] AND [id number] 18:24:00 Test Item Value Reference Range Interpretation Comments UA Ketones (test code = UA Ketones) NEGATIVE [facility] AND [id number] 18:24:00 Test Item Value Reference Range Interpretation Comments UA Blood (test code = UA Blood) NEGATIVE [facility] AND [id number] 18:24:00 Test Item Value Reference Range Interpretation Comments UA Protein (test code = UA Protein) NEGATIVE [facility] AND [id number] 18:24:00 Test Item Value Reference Range Interpretation Comments UA Nitrite (test code = UA Nitrite) NEGATIVE [facility] [id number] 18:24:00 Test Item Value Reference Range Interpretation Comments UA Leuk Est (test code = UA Leuk NEGATIVE Est) [facility] [id number] 18:24:00 Test Item Value Reference Range Interpretation Comments UA WBC (test code = UA WBC) [facility]ONE [facility]EN [facility] [id number] 18:24:00 Test Item Value Reference Range Interpretation Comments UA RBC (test code = UA RBC) [facility]EN [facility] [id number] 18:24:00 Test Item Value Reference Range Interpretation Comments UA Sq Epi (test code = UA Sq Epi) [facility] [id number] 18:24:00 Test Item Value Reference Range Interpretation Comments UA Bacteria (test code = UA NONE SEEN Bacteria) [facility] AND [id number] 18:24:00 Test Item Value Reference Range Interpretation Comments UA Hyal Cast (test code = UA Hyal NONE SEEN Cast) [facility] AND [id number] 18:24:00 Test Item Value Reference Range Interpretation Comments UA Comment 2 (test code = UA SEE COMMENT Comment 2) [facility]landYchfqceAZAPHK2708-66-74 16:16:54 Test Item Value Reference Range Interpretation Comments RADRPT (test code PROCEDURE INFORMATION: = RADRPT) Exam: US Retroperitoneal; Complete; Kidneys and Bladder Exam date and time: 03/01/2023 12:35 PM Age: 32 years old Clinical indication: Calculus of kidney; Additional info: /without transplant TECHNIQUE: Imaging protocol: Real-time ultrasound of the retroperitoneum with image documentation. Complete exam focused on the kidneys and bladder. COMPARISON: ABDOMEN AP DX 01/07/2023 2:27 PM FINDINGS: Right kidney: Measures 10.3 cm.Normal cortical echogenity. There is no hydronephrosis. There are 2 nonobstructing right renal calculi measuring up to eight mm. Left kidney: Measures 10.2 cm.Normal cortical echogenity. There is no hydronephrosis, nephrolithiasis. Intraperitoneal space: No ascites. Urinary bladder: There is debris in the urinary bladder. The ureteral jets are seen bilaterally, excluding obstruction. IMPRESSION: 1. Right nonobstructing renal calculi. No hydronephrosis. 2. Urinary bladder debris which may indicate infection. Recommend correlation with urinalysis. Klaudia Lopez MD On 03/02/2023 11:16:06; [id number] [id number] 15:03:20 Test Item Value Reference Range Interpretation Comments RADRPT (test code = PROCEDURE INFORMATION: RADRPT) Exam: XR Abdomen Exam date and time: 01/07/2023 2:27 PM Age: 32 years old Clinical indication: Calculus of kidney; Additional info: /n20.0 n20.1 TECHNIQUE: Imaging protocol: Radiologic exam of the abdomen. Views: Frontal supine view of the abdomen. 1 View. COMPARISON: No relevant prior studies available. FINDINGS: AP images. Shunt tubing terminates in the lower pelvis. Normal bowel gas pattern. 3 small right renal calculi, largest approximately 4 mm. Region of left kidney largely obscured by bowel gas and fecal material. Calcified pelvic phleboliths. Skeleton normal. IMPRESSION: Small right renal calculi. Andriy Bermudez MD On 01/08/2023 10:02:40; [id number] [facility] [id number] 08:22:00 Test Item Value Reference Range Interpretation Comments HEMOGLOBIN (test code = HGB) 11.5 g/dL 10.1-13.8 N HEMATOCRIT (test code = HCT) 34.6 % 32.5-41.8 N AG HEPATITIS B [id number] 13:12:00 Test Item Value Reference Range Interpretation Comments AG HEPATITIS B SURFACE (test code NONREACTIVE NONREACTIVE = HBSAG) AB HEPATITIS C [id number] 13:12:00 Test Item Value Reference Range Interpretation Comments AB HEPATITIS C (test code = NONREACTIVE NONREACTIVE HCVAB) SIGNAL TO CUTOFF (test code = 0.14 <0.80 N CUTOFF) AB [id number] 13:12:00 Test Item Value Reference Range Interpretation Comments AB TREPONEMA (test code = TREPAB) NONREACTIVE NONREACTIVE AB HIV 1 13:12:00 Test Item Value Reference Range Interpretation Comments AB HIV 1 2 (test NONREACTIVE NONREACTIVE [facility] code = [id number]) 4th Gen HIV Ag/Ab Combo Screen COMPREHENSIVE METABOLIC [id number] 12:23:00 Test Item Value Reference Range Interpretation [...] the recommended for rufino for GFRby the [facility] for Adults.The GFR will [...] TOTAL (test code = ALKP) CBC W/AUTO [id number] 11:48:00 Test Item Value Reference Range Interpretation [...] (test NORMAL NORMAL code = PLTMR) HGB [id number] 08:39:00 Test Item Value Reference Range Interpretation Comments HEMOGLOBIN (test code = HGB) 10.2 g/dL 10.1-13.8 N HEMATOCRIT (test code = HCT) 31.6 % 32.5-41.8 L AG HEPATITIS B [id number] 14:39:00 Test Item Value Reference Range Interpretation Comments AG HEPATITIS B SURFACE (test code NONREACTIVE NONREACTIVE = HBSAG) AB HEPATITIS C [id number] 14:39:00 Test Item Value Reference Range Interpretation Comments AB HEPATITIS C (test code = NONREACTIVE NONREACTIVE HCVAB) SIGNAL TO CUTOFF (test code = <0.02 <0.80 N CUTOFF) AB [id number] 14:39:00 Test Item Value Reference Range Interpretation Comments AB TREPONEMA (test code = TREPAB) NONREACTIVE NONREACTIVE AB HIV 1 14:39:00 Test Item Value Reference Range Interpretation Comments AB HIV 1 2 (test NONREACTIVE NONREACTIVE Done [facility] code = [id number]) 4th Gen HIV Ag/Ab Combo Screen AG HEPATITIS B [id number] 14:16:00 Test Item Value Reference Range Interpretation Comments AG HEPATITIS B SURFACE (test code NONREACTIVE NONREACTIVE = HBSAG) AB HEPATITIS C [id number] 14:16:00 Test Item Value Reference Range Interpretation Comments AB HEPATITIS C (test code = HCVAB) NONREACTIVE SIGNAL TO CUTOFF (test code = CUTOFF) <0.80 AB [id number] 14:16:00 Test Item Value Reference Range Interpretation Comments AB TREPONEMA (test code = TREPAB) NONREACTIVE NONREACTIVE AB HIV 1 14:16:00 Test Item Value Reference Range Interpretation Comments AB HIV 1 2 (test code = [id number]) NONREACTIVE CBC W/AUTO [id number] 13:10:00 Test Item Value Reference Range Interpretation [...] REQUIRED (test NORMAL NORMAL code = PLTMR) [id number] 09:20:00 Test Item Value Reference Range Interpretation Comments MCH (test code = MCH) 29.4 pg 27.0-31.0 [facility] HospitalIphcccxOKIYDAHZVK0745-80-90 09:20:00 Test Item Value Reference Range Interpretation Comments MCHC (test code = MCHC) 33.1 32.0-36.0 [facility] HospitalZqdmljtWBXXIYDRUE0938-97-93 09:20:00 Test Item Value Reference Range Interpretation Comments Hgb (test code = Hgb) 12.1 12.0-16.0 [facility] HospitalYmasfndCYQPQQBMQY2260-81-63 09:20:00 Test Item Value Reference Range Interpretation Comments RBC (test code = RBC) 4.13 4.20-5.40 [facility] HospitalAmnmzpqLKMNEOVLSM9228-06-02 09:20:00 Test Item Value Reference Range Interpretation Comments Hct (test code = Hct) 36.7 36.0-48.0 [facility] HospitalOcurtcvGNNKTUWRKS4846-19-51 09:20:00 Test Item Value Reference Range Interpretation Comments MCV (test code = MCV) 89.0 80.0-98.0 [facility] HospitalUiansasXJFJEQMXDW6077-11-22 09:20:00 Test Item Value Reference Range Interpretation Comments RDW (test code = RDW) 12.1 11.5-14.5 [facility] HospitalJruyuthYIHPPXUCIZ5246-29-14 09:20:00 Test Item Value Reference Range Interpretation Comments Platelet (test code = Platelet) 244 133-450 [facility] HospitalBwaapbuDEJXOGYITC4516-94-59 09:20:00 Test Item Value Reference Range Interpretation Comments MPV (test code = MPV) 8.8 7.4-10.4 [facility] HospitalMpbtxyhHJEWSFOQFC4789-53-59 09:20:00 Test Item Value Reference Range Interpretation Comments WBC (test code = WBC) 16.2 3.7-10.4 [facility] HospitalHpzbdkaEGDUGPLKDY1727-69-04 09:20:00 Test Item Value Reference Range Interpretation Comments Lymphocytes # (test code = Lymphocytes 1.9 1.0-5.5 #) [facility] HospitalOifngapEOEINNTPKQ4056-33-26 09:20:00 Test Item Value Reference Range Interpretation Comments Monocytes # (test code = Monocytes #) 1.2 <=0.8 [facility] HospitalZwbljlaIEYIQMISXQ7332-42-86 09:20:00 Test Item Value Reference Range Interpretation Comments Monocytes (test code = Monocytes) 7.7 2.0-12.0 [facility] HospitalZoedvhyEPCTIQDKHV8018-12-67 09:20:00 Test Item Value Reference Range Interpretation Comments Basophils (test code = Basophils) 0.1 <=1.0 [facility] HospitalEibsbbsROISWHFLOH0743-75-27 09:20:00 Test Item Value Reference Range Interpretation Comments Eosinophils (test code = Eosinophils) 0.2 <=4.0 [facility] HospitalBzzyzzbTCLFMVAUQH1125-33-68 09:20:00 Test Item Value Reference Range Interpretation Comments Segs-Bands # (test code = Segs-Bands #) 13.0 1.5-8.1 [facility] HospitalHipjrdtGSKAGPLAMV1598-05-31 09:20:00 Test Item Value Reference Range Interpretation Comments Lymphocytes (test code = Lymphocytes) 11.6 20.0-40.0 [facility] HospitalIfbmdzqCOGMPGXLCV9786-03-51 09:20:00 Test Item Value Reference Range Interpretation Comments Segs (test code = Segs) 80.4 45.0-75.0 [facility] HospitalThjwcnfFBVCQBAQZW7042-71-49 09:20:00 Test Item Value Reference Range Interpretation Comments MCH (test code = MCH) 29.4 pg 27.0-31.0 [facility] HospitalZtschrdVXNYFSLFKK0778-14-16 09:20:00 Test Item Value Reference Range Interpretation Comments MCHC (test code = MCHC) 33.1 32.0-36.0 [facility] HospitalVjqtilpGMIKVFKPGA1348-31-40 09:20:00 Test Item Value Reference Range Interpretation Comments Hgb (test code = Hgb) 12.1 12.0-16.0 [facility] HospitalNfqklnaNFGHTOPKCD0321-56-18 09:20:00 Test Item Value Reference Range Interpretation Comments RBC (test code = RBC) 4.13 4.20-5.40 [facility] HospitalUyjtcjuNJMXCIRKWR5789-59-15 09:20:00 Test Item Value Reference Range Interpretation Comments Hct (test code = Hct) 36.7 36.0-48.0 [facility] HospitalKmqstpsSOZIHCJRLD5137-65-55 09:20:00 Test Item Value Reference Range Interpretation Comments MCV (test code = MCV) 89.0 80.0-98.0 [facility] HospitalJzjnwzhNFHUONNWYS9052-79-44 09:20:00 Test Item Value Reference Range Interpretation Comments RDW (test code = RDW) 12.1 11.5-14.5 [facility] HospitalNslusbrAMLCVUNPWS4635-58-02 09:20:00 Test Item Value Reference Range Interpretation Comments Platelet (test code = Platelet) 244 133-450 [facility] HospitalJtlmxbvALMXZXEROZ3623-58-08 09:20:00 Test Item Value Reference Range Interpretation Comments MPV (test code = MPV) 8.8 7.4-10.4 [facility] HospitalHoalmeyKUTZNGRZJQ4682-91-08 09:20:00 Test Item Value Reference Range Interpretation Comments WBC (test code = WBC) 16.2 3.7-10.4 [facility] HospitalBnpfkkdZLZIMPNEBW2309-89-98 09:20:00 Test Item Value Reference Range Interpretation Comments Lymphocytes # (test code = Lymphocytes 1.9 1.0-5.5 #) [facility] HospitalVpvdezjDRYOHBGSMU5277-38-32 09:20:00 Test Item Value Reference Range Interpretation Comments Monocytes # (test code 1.2 See_Comment [Aut omated message] The = Monocytes #) system which generated this result tra nsmitted reference range : <=0.8. The reference r joan was not used to int erpret this result as normal/abnormal . [facility] HospitalKyasngxEGZLBVGLRW2000-79-09 09:20:00 Test Item Value Reference Range Interpretation Comments Monocytes (test code = Monocytes) 7.7 2.0-12.0 [facility] HospitalCoshkkeEKKWYRGMAC5956-03-14 09:20:00 Test Item Value Reference Range Interpretation Comments Basophils (test code = 0.1 See_Comment [Aut omated message] The Basophils) system which ge nerated this result tra nsmitted reference range : <=1.0. The reference r joan was not used to int erpret this result as normal/abnormal . [facility] HospitalNyzajjdRKWHRHGUCH5040-55-89 09:20:00 Test Item Value Reference Range Interpretation Comments Eosinophils (test code = 0.2 See_Comment [A utomated message] The Eosinophils) system which ge nerated this result tra nsmitted reference range : <=4.0. The reference r joan was not used to int erpret this result as normal/abnormal . [facility] HospitalMijpletTZFCSXLVCD9194-38-25 09:20:00 Test Item Value Reference Range Interpretation Comments Segs-Bands # (test code = Segs-Bands #) 13.0 1.5-8.1 [facility] HospitalKagonehLYREZSGMUF4610-87-58 09:20:00 Test Item Value Reference Range Interpretation Comments Lymphocytes (test code = Lymphocytes) 11.6 20.0-40.0 [facility] HospitalIazarazUYNOMPTDIG6754-40-10 09:20:00 Test Item Value Reference Range Interpretation Comments Segs (test code = Segs) 80.4 45.0-75.0 [facility] HospitalQxlylfcAMNWZPNAQX8103-62-43 09:20:00 Test Item Value Reference Range Interpretation Comments MCH (test code = MCH) 29.4 pg 27.0-31.0 [facility] HospitalHhmqgvqJJXNTXDPFF3841-21-71 09:20:00 Test Item Value Reference Range Interpretation Comments MCHC (test code = MCHC) 33.1 32.0-36.0 [facility] HospitalMzdbatkMYZZYUGMOD9654-68-79 09:20:00 Test Item Value Reference Range Interpretation Comments Hgb (test code = Hgb) 12.1 12.0-16.0 [facility] HospitalGrjytyqJBIXXDZUQO8929-91-42 09:20:00 Test Item Value Reference Range Interpretation Comments RBC (test code = RBC) 4.13 4.20-5.40 [facility] HospitalRymjccjHFVXEXSTMC5850-96-10 09:20:00 Test Item Value Reference Range Interpretation Comments Hct (test code = Hct) 36.7 36.0-48.0 [facility] HospitalTlgduzeKGHGSROCON7192-98-39 09:20:00 Test Item Value Reference Range Interpretation Comments MCV (test code = MCV) 89.0 80.0-98.0 [facility] HospitalOgxfseuIXQSSJFUHW4481-82-33 09:20:00 Test Item Value Reference Range Interpretation Comments RDW (test code = RDW) 12.1 11.5-14.5 [facility] HospitalRpwqtiySLVGPRNTSH9902-66-25 09:20:00 Test Item Value Reference Range Interpretation Comments Platelet (test code = Platelet) 244 133-450 [facility] HospitalMjintdvKVXVUGYOTD5161-83-14 09:20:00 Test Item Value Reference Range Interpretation Comments MPV (test code = MPV) 8.8 7.4-10.4 [facility] HospitalVeqsobcVQSBPGAYEM4080-06-40 09:20:00 Test Item Value Reference Range Interpretation Comments WBC (test code = WBC) 16.2 3.7-10.4 [facility] HospitalXpbuwhwEWKEWAOWZJ1755-30-56 09:20:00 Test Item Value Reference Range Interpretation Comments Lymphocytes # (test code = Lymphocytes 1.9 1.0-5.5 #) [facility] HospitalQgduzxmWMCEKVDUBY3905-29-13 09:20:00 Test Item Value Reference Range Interpretation Comments Monocytes # (test code 1.2 See_Comment [Aut omated message] The = Monocytes #) system which generated this result tra nsmitted reference range : <=0.8. The reference r joan was not used to int erpret this result as normal/abnormal . [facility] HospitalLjuhybxWJWWCXZTWA7644-25-13 09:20:00 Test Item Value Reference Range Interpretation Comments Monocytes (test code = Monocytes) 7.7 2.0-12.0 [facility] HospitalUkjvhttLPJWMOKVBJ8643-43-75 09:20:00 Test Item Value Reference Range Interpretation Comments Basophils (test code = 0.1 See_Comment [Aut omated message] The Basophils) system which ge nerated this result tra nsmitted reference range : <=1.0. The reference r joan was not used to int erpret this result as normal/abnormal . [facility] HospitalEsxmniaGECHQPBFFC4548-67-28 09:20:00 Test Item Value Reference Range Interpretation Comments Eosinophils (test code = 0.2 See_Comment [A utomated message] The Eosinophils) system which ge nerated this result tra nsmitted reference range : <=4.0. The reference r joan was not used to int erpret this result as normal/abnormal . [facility] HospitalYvriketVGBZCIACSM2973-65-34 09:20:00 Test Item Value Reference Range Interpretation Comments Segs-Bands # (test code = Segs-Bands #) 13.0 1.5-8.1 [facility] HospitalLhyooakFDPSDJTQGW7506-27-82 09:20:00 Test Item Value Reference Range Interpretation Comments Lymphocytes (test code = Lymphocytes) 11.6 20.0-40.0 [facility] HospitalJudqlfwUKAOTBTEAL3032-49-41 09:20:00 Test Item Value Reference Range Interpretation Comments Segs (test code = Segs) 80.4 45.0-75.0 [facility] HospitalDeujlggNXPDVTRZIV9052-88-68 09:20:00 Test Item Value Reference Range Interpretation Comments MCH (test code = MCH) 29.4 pg 27.0-31.0 [facility] HospitalGjcuolhWJBYRKVGZI5192-87-85 09:20:00 Test Item Value Reference Range Interpretation Comments MCHC (test code = MCHC) 33.1 32.0-36.0 [facility] HospitalYueorciGOSYQDQKZO1781-48-94 09:20:00 Test Item Value Reference Range Interpretation Comments Hgb (test code = Hgb) 12.1 12.0-16.0 [facility] HospitalJenohnrBAFIWEQCHK0911-06-31 09:20:00 Test Item Value Reference Range Interpretation Comments RBC (test code = RBC) 4.13 4.20-5.40 [facility] HospitalYkvaizqRJCPMTMLQG7881-55-34 09:20:00 Test Item Value Reference Range Interpretation Comments Hct (test code = Hct) 36.7 36.0-48.0 [facility] HospitalQbqfnkpAKVRQGZPFK4365-55-11 09:20:00 Test Item Value Reference Range Interpretation Comments MCV (test code = MCV) 89.0 80.0-98.0 [facility] HospitalWxmwznzWFNLWNBJVS9483-17-45 09:20:00 Test Item Value Reference Range Interpretation Comments RDW (test code = RDW) 12.1 11.5-14.5 [facility] HospitalZqptingYAORMBEYPG4093-51-69 09:20:00 Test Item Value Reference Range Interpretation Comments Platelet (test code = Platelet) 244 133-450 [facility] HospitalXapnuchZUPQRYEEUJ0844-43-13 09:20:00 Test Item Value Reference Range Interpretation Comments MPV (test code = MPV) 8.8 7.4-10.4 [facility] HospitalCjdhevxMAYXXTUUAB3858-55-39 09:20:00 Test Item Value Reference Range Interpretation Comments WBC (test code = WBC) 16.2 3.7-10.4 [facility] HospitalLylejvsMLAZAVVYNL7659-76-68 09:20:00 Test Item Value Reference Range Interpretation Comments Lymphocytes # (test code = Lymphocytes 1.9 1.0-5.5 #) [facility] HospitalWqopecxWNPSJEWBWF3165-22-44 09:20:00 Test Item Value Reference Range Interpretation Comments Monocytes # (test code 1.2 See_Comment [Aut omated message] The = Monocytes #) system which generated this result tra nsmitted reference range : <=0.8. The reference r joan was not used to int erpret this result as normal/abnormal . [facility] HospitalGfthcpsRZEQUEFBBH3769-02-72 09:20:00 Test Item Value Reference Range Interpretation Comments Monocytes (test code = Monocytes) 7.7 2.0-12.0 [facility] HospitalKhzjxqmPYKBFTHOLI9349-94-97 09:20:00 Test Item Value Reference Range Interpretation Comments Basophils (test code = 0.1 See_Comment [Aut omated message] The Basophils) system which ge nerated this result tra nsmitted reference range : <=1.0. The reference r joan was not used to int erpret this result as normal/abnormal . [facility] HospitalPfmiivuYPEDUGJMGE7133-68-13 09:20:00 Test Item Value Reference Range Interpretation Comments Eosinophils (test code = 0.2 See_Comment [A utomated message] The Eosinophils) system which ge nerated this result tra nsmitted reference range : <=4.0. The reference r joan was not used to int erpret this result as normal/abnormal . [facility] HospitalBwwroclNNXBDZLCDX7303-57-44 09:20:00 Test Item Value Reference Range Interpretation Comments Segs-Bands # (test code = Segs-Bands #) 13.0 1.5-8.1 [facility] HospitalUcmfvbiBWTBHRBXUE5083-02-03 09:20:00 Test Item Value Reference Range Interpretation Comments Lymphocytes (test code = Lymphocytes) 11.6 20.0-40.0 [facility] HospitalQvjloadRNPMBCMOEH2968-96-29 09:20:00 Test Item Value Reference Range Interpretation Comments Segs (test code = Segs) 80.4 45.0-75.0 [facility] HospitalYnyaxbdMXWDMIYPGO5525-75-59 15:07:00 Test Item Value Reference Range Interpretation Comments MCV (test code = MCV) 89.2 80.0-98.0 [facility] HospitalYmdpgqvMKFAVWOQMM7113-33-29 15:07:00 Test Item Value Reference Range Interpretation Comments MCH (test code = MCH) 29.5 pg 27.0-31.0 [facility] HospitalLsydhqzVYNUWTIWVD9630-06-15 15:07:00 Test Item Value Reference Range Interpretation Comments Hct (test code = Hct) 36.7 36.0-48.0 [facility] HospitalTqhzhbvXSMJAOZETN2671-90-22 15:07:00 Test Item Value Reference Range Interpretation Comments MCHC (test code = MCHC) 33.1 32.0-36.0 [facility]RprxmezUGDHBZGKZE1182-32-26 15:07:00 Test Item Value Reference Range Interpretation Comments RDW (test code = RDW) 12.4 11.5-14.5 [facility] HospitalNfavrglMWFPYNJFXE7633-78-63 15:07:00 Test Item Value Reference Range Interpretation Comments RBC (test code = RBC) 4.12 4.20-5.40 [facility] HospitalDjoxkkfJMSHYKTGWG9104-67-08 15:07:00 Test Item Value Reference Range Interpretation Comments WBC (test code = WBC) 11.2 3.7-10.4 [facility] HospitalOopsffxRNEGDCQCOT7554-69-45 15:07:00 Test Item Value Reference Range Interpretation Comments Hgb (test code = Hgb) 12.1 12.0-16.0 [facility] HospitalEbgxzxyEMLADNKBQS1831-50-02 15:07:00 Test Item Value Reference Range Interpretation Comments Platelet (test code = Platelet) 188 133-450 [facility] HospitalIhjszgwZOTSIEHKXK8050-27-76 15:07:00 Test Item Value Reference Range Interpretation Comments MPV (test code = MPV) 8.8 7.4-10.4 [facility] HospitalYvwlkkpIYPQGNONTH7526-24-74 15:07:00 Test Item Value Reference Range Interpretation Comments Eosinophils (test code = Eosinophils) 0.7 <=4.0 [facility] HospitalOxytiylHBCHDCBQVO5506-87-60 15:07:00 Test Item Value Reference Range Interpretation Comments Monocytes # (test code = Monocytes #) 0.3 <=0.8 [facility] HospitalVtjzrejBKVTRCBNHY1268-76-55 15:07:00 Test Item Value Reference Range Interpretation Comments Lymphocytes # (test code = Lymphocytes 1.9 1.0-5.5 #) [facility] HospitalAbnxhjbSONUNTWHGX5188-89-74 15:07:00 Test Item Value Reference Range Interpretation Comments Basophils (test code = Basophils) 0.4 <=1.0 [facility] HospitalMltzlcjBWENYXRTAY1368-77-25 15:07:00 Test Item Value Reference Range Interpretation Comments Segs-Bands # (test code = Segs-Bands #) 8.9 1.5-8.1 [facility] HospitalZgvusltNYBZOMTYTO6813-92-00 15:07:00 Test Item Value Reference Range Interpretation Comments Monocytes (test code = Monocytes) 3.1 2.0-12.0 [place] 140425-03-31 15:07:00 Test Item Value Reference Range Interpretation Comments Segs (test code = Segs) 79.1 45.0-75.0 [facility] HospitalRnvrrqbYVGLYFYRXX5253-20-49 15:07:00 Test Item Value Reference Range Interpretation Comments Lymphocytes (test code = Lymphocytes) 16.7 20.0-40.0 [facility] HospitalDpiybbxDDWPWADEMX7573-70-43 15:07:00 Test Item Value Reference Range Interpretation Comments Eosinophils # (test code = Eosinophils 0.1 <=0.5 #) [facility] HospitalLhdvozmPULLTZXUTL7019-99-59 15:07:00 Test Item Value Reference Range Interpretation Comments MCV (test code = MCV) 89.2 80.0-98.0 [facility] HospitalRjnntgcXTWYHLDVNS0843-46-98 15:07:00 Test Item Value Reference Range Interpretation Comments MCH (test code = MCH) 29.5 pg 27.0-31.0 [facility] HospitalWdxjoypNRXOANMLFB4808-78-16 15:07:00 Test Item Value Reference Range Interpretation Comments Hct (test code = Hct) 36.7 36.0-48.0 [facility] HospitalJclaqdoQODAPPOMJK8936-39-44 15:07:00 Test Item Value Reference Range Interpretation Comments MCHC (test code = MCHC) 33.1 32.0-36.0 [facility] HospitalOattjllAKSPLELFPR4942-32-63 15:07:00 Test Item Value Reference Range Interpretation Comments RDW (test code = RDW) 12.4 11.5-14.5 [facility] HospitalEcktsdgOGVKCZWURM8818-90-42 15:07:00 Test Item Value Reference Range Interpretation Comments RBC (test code = RBC) 4.12 4.20-5.40 [facility] HospitalYulpiozDIPGOXTUEL8722-30-64 15:07:00 Test Item Value Reference Range Interpretation Comments WBC (test code = WBC) 11.2 3.7-10.4 [facility] HospitalUssvlrnDZTDPHBGOK4406-52-96 15:07:00 Test Item Value Reference Range Interpretation Comments Hgb (test code = Hgb) 12.1 12.0-16.0 [facility] HospitalBnktpoeOKCCCAOWVS0029-74-67 15:07:00 Test Item Value Reference Range Interpretation Comments Platelet (test code = Platelet) 188 133-450 [facility] HospitalYmspgayOVHRFXWEOT2093-95-12 15:07:00 Test Item Value Reference Range Interpretation Comments MPV (test code = MPV) 8.8 7.4-10.4 [facility] HospitalWzcjhnrQVNUUVZSHX8868-33-87 15:07:00 Test Item Value Reference Range Interpretation Comments Eosinophils (test code = 0.7 See_Comment [A utomated message] The Eosinophils) system which ge nerated this result tra nsmitted reference range : <=4.0. The reference r joan was not used to int erpret this result as normal/abnormal . [facility] HospitalTesutdkTZQOQAPYLY9246-31-80 15:07:00 Test Item Value Reference Range Interpretation Comments Monocytes # (test code 0.3 See_Comment [Aut omated message] The = Monocytes #) system which generated this result tra nsmitted reference range : <=0.8. The reference r joan was not used to int erpret this result as normal/abnormal . [facility] HospitalGlyazjyXOIUDYOKJC7834-82-71 15:07:00 Test Item Value Reference Range Interpretation Comments Lymphocytes # (test code = Lymphocytes 1.9 1.0-5.5 #) [facility] HospitalJrgrvwfDZSRYEKHQP6341-51-40 15:07:00 Test Item Value Reference Range Interpretation Comments Basophils (test code = 0.4 See_Comment [Aut omated message] The Basophils) system which ge nerated this result tra nsmitted reference range : <=1.0. The reference r joan was not used to int erpret this result as normal/abnormal . [facility] HospitalJzqepupYVAHORVQXD4354-61-55 15:07:00 Test Item Value Reference Range Interpretation Comments Segs-Bands # (test code = Segs-Bands #) 8.9 1.5-8.1 [facility] HospitalMicqfbwTFTMKXUBAV6318-51-08 15:07:00 Test Item Value Reference Range Interpretation Comments Monocytes (test code = Monocytes) 3.1 2.0-12.0 [facility] HospitalVjybrviUQNCGALSNP5995-52-18 15:07:00 Test Item Value Reference Range Interpretation Comments Segs (test code = Segs) 79.1 45.0-75.0 [facility] HospitalUgqmhblDNGJHUJGLV7302-11-97 15:07:00 Test Item Value Reference Range Interpretation Comments Lymphocytes (test code = Lymphocytes) 16.7 20.0-40.0 [facility] HospitalMbpcahsOGJBFERRWM2484-02-18 15:07:00 Test Item Value Reference Range Interpretation Comments Eosinophils # (test code 0.1 See_Comment [A utomated message] The = Eosinophils #) system [employer] generated this result tra nsmitted reference range : <=0.5. The reference r joan was not used to int erpret this result as normal/abnormal . [facility] HospitalKnbebhoVYCYOSDFUJ7192-03-37 15:07:00 Test Item Value Reference Range Interpretation Comments MCV (test code = MCV) 89.2 80.0-98.0 [facility] HospitalDrglozqVIXFCQZXVT7253-83-91 15:07:00 Test Item Value Reference Range Interpretation Comments MCH (test code = MCH) 29.5 pg 27.0-31.0 [facility] HospitalUxeahleZXEOISDKAV0296-33-06 15:07:00 Test Item Value Reference Range Interpretation Comments Hct (test code = Hct) 36.7 36.0-48.0 [facility] HospitalHfhntfdALOBEVEPCD7965-19-70 15:07:00 Test Item Value Reference Range Interpretation Comments MCHC (test code = MCHC) 33.1 32.0-36.0 [facility] HospitalMyvqeboEKMHBLSVGJ0315-93-98 15:07:00 Test Item Value Reference Range Interpretation Comments RDW (test code = RDW) 12.4 11.5-14.5 [facility] HospitalOzrmibgNGJEXKDRSW4022-47-96 15:07:00 Test Item Value Reference Range Interpretation Comments RBC (test code = RBC) 4.12 4.20-5.40 [facility] HospitalRkjmjuxVTOJHJDXPM3098-52-74 15:07:00 Test Item Value Reference Range Interpretation Comments WBC (test code = WBC) 11.2 3.7-10.4 [facility] HospitalHfypxtcRWYIECNZJV9934-22-55 15:07:00 Test Item Value Reference Range Interpretation Comments Hgb (test code = Hgb) 12.1 12.0-16.0 [facility] HospitalAlstbwdTGJAQEDLVF1138-21-71 15:07:00 Test Item Value Reference Range Interpretation Comments Platelet (test code = Platelet) 188 133-450 [facility] HospitalLfejqvbTRAQTGALWD7967-79-76 15:07:00 Test Item Value Reference Range Interpretation Comments MPV (test code = MPV) 8.8 7.4-10.4 [facility] HospitalPrstbheKWHOMTKJIV5231-90-36 15:07:00 Test Item Value Reference Range Interpretation Comments Eosinophils (test code = 0.7 See_Comment [A utomated message] The Eosinophils) system which ge nerated this result tra nsmitted reference range : <=4.0. The reference r joan was not used to int erpret this result as normal/abnormal . [facility] HospitalSpogcceAQLCPJPSCJ3457-03-32 15:07:00 Test Item Value Reference Range Interpretation Comments Monocytes # (test code 0.3 See_Comment [Aut omated message] The = Monocytes #) system which generated this result tra nsmitted reference range : <=0.8. The reference r joan was not used to int erpret this result as normal/abnormal . [facility] HospitalHfowvdcXHKXZWVTDD9327-81-97 15:07:00 Test Item Value Reference Range Interpretation Comments Lymphocytes # (test code = Lymphocytes 1.9 1.0-5.5 #) [facility] HospitalVurmbjkOYWLDRUOMQ2278-42-12 15:07:00 Test Item Value Reference Range Interpretation Comments Basophils (test code = 0.4 See_Comment [Aut omated message] The Basophils) system which ge nerated this result tra nsmitted reference range : <=1.0. The reference r joan was not used to int erpret this result as normal/abnormal . [facility] HospitalYsriepjLMJIGEONEK7158-34-67 15:07:00 Test Item Value Reference Range Interpretation Comments Segs-Bands # (test code = Segs-Bands #) 8.9 1.5-8.1 [facility] HospitalCekcntuJJUXXOSLES5676-33-32 15:07:00 Test Item Value Reference Range Interpretation Comments Monocytes (test code = Monocytes) 3.1 2.0-12.0 [facility] HospitalOpaumjiUTMAKQRWJV9515-42-79 15:07:00 Test Item Value Reference Range Interpretation Comments Segs (test code = Segs) 79.1 45.0-75.0 [facility] HospitalIunnalwCSINRQLVMG1535-13-29 15:07:00 Test Item Value Reference Range Interpretation Comments Lymphocytes (test code = Lymphocytes) 16.7 20.0-40.0 [facility] HospitalKgvnhseZGEWOXRWWH3656-89-20 15:07:00 Test Item Value Reference Range Interpretation Comments Eosinophils # (test code 0.1 See_Comment [A utomated message] The = Eosinophils #) system [employer] generated this result tra nsmitted reference range : <=0.5. The reference r joan was not used to int erpret this result as normal/abnormal . [facility] HospitalQrvhlokBXEXDROBYU6712-17-77 15:07:00 Test Item Value Reference Range Interpretation Comments MCV (test code = MCV) 89.2 80.0-98.0 [facility] HospitalXcepjhtXVTOJOAWLT9896-36-20 15:07:00 Test Item Value Reference Range Interpretation Comments MCH (test code = MCH) 29.5 pg 27.0-31.0 [facility] HospitalWxfhtyrYYLXYHGTQW1309-57-71 15:07:00 Test Item Value Reference Range Interpretation Comments Hct (test code = Hct) 36.7 36.0-48.0 [facility] HospitalGeyeealIOVGKPCAON8933-52-55 15:07:00 Test Item Value Reference Range Interpretation Comments MCHC (test code = MCHC) 33.1 32.0-36.0 [facility] HospitalFmjmdppRRZBVWBXMW4036-60-36 15:07:00 Test Item Value Reference Range Interpretation Comments RDW (test code = RDW) 12.4 11.5-14.5 [facility] HospitalDeqalsbLPYQHJNWVG3291-97-82 15:07:00 Test Item Value Reference Range Interpretation Comments RBC (test code = RBC) 4.12 4.20-5.40 [facility] HospitalLjjmvuiHWVBBXMAQY8116-50-30 15:07:00 Test Item Value Reference Range Interpretation Comments WBC (test code = WBC) 11.2 3.7-10.4 [facility] HospitalHtvmzzaXYQKXPAHSL6246-14-63 15:07:00 Test Item Value Reference Range Interpretation Comments Hgb (test code = Hgb) 12.1 12.0-16.0 [facility] HospitalBrhfjkiWGBNHQXLYE3718-94-05 15:07:00 Test Item Value Reference Range Interpretation Comments Platelet (test code = Platelet) 188 133-450 [facility] HospitalQnryvoeJQIXVUOFFK4285-27-99 15:07:00 Test Item Value Reference Range Interpretation Comments MPV (test code = MPV) 8.8 7.4-10.4 [facility] HospitalFdtinqtZUICLXGDVT9201-51-44 15:07:00 Test Item Value Reference Range Interpretation Comments Eosinophils (test code = 0.7 See_Comment [A utomated message] The Eosinophils) system which ge nerated this result tra nsmitted reference range : <=4.0. The reference r joan was not used to int erpret this result as normal/abnormal . [facility] HospitalKrgxyfhFUMDPUMAYK3131-10-89 15:07:00 Test Item Value Reference Range Interpretation Comments Monocytes # (test code 0.3 See_Comment [Aut omated message] The = Monocytes #) system which generated this result tra nsmitted reference range : <=0.8. The reference r joan was not used to int erpret this result as normal/abnormal . [facility] HospitalVzltjltYIMKOCTVTW8409-45-25 15:07:00 Test Item Value Reference Range Interpretation Comments Lymphocytes # (test code = Lymphocytes 1.9 1.0-5.5 #) [facility] HospitalOdpacxkUMUPXRLDSE3001-72-70 15:07:00 Test Item Value Reference Range Interpretation Comments Basophils (test code = 0.4 See_Comment [Aut omated message] The Basophils) system which ge nerated this result tra nsmitted reference range : <=1.0. The reference r joan was not used to int erpret this result as normal/abnormal . [facility] HospitalKxxnegoNLQNPTGMPX7847-46-34 15:07:00 Test Item Value Reference Range Interpretation Comments Segs-Bands # (test code = Segs-Bands #) 8.9 1.5-8.1 [facility] HospitalBaoguzjHAQXGQRXLU6146-32-21 15:07:00 Test Item Value Reference Range Interpretation Comments Monocytes (test code = Monocytes) 3.1 2.0-12.0 [facility] HospitalUfwjnjrFYFVFQDRDN8858-21-50 15:07:00 Test Item Value Reference Range Interpretation Comments Segs (test code = Segs) 79.1 45.0-75.0 [facility]dxrpxiDSHFCZDFVH7783-60-90 15:07:00 Test Item Value Reference Range Interpretation Comments Lymphocytes (test code = Lymphocytes) 16.7 20.0-40.0 [facility] SystemKjmflyhLITUWAHRAT2124-06-41 15:07:00 Test Item Value Reference Range Interpretation Comments Eosinophils # (test code 0.1 See_Comment [A utomated message] The = Eosinophils #) system whic h generated this result tra nsmitted reference range : <=0.5. The reference r joan was not used to int erpret this result as normal/abnormal . [facility] KOKEKRL5719-88-93 12:06:00 Test Item Value Reference Range Interpretation Comments Antibody Scrn (test Negative (10/29/14 7:06 code = Antibody Scrn) AM) [facility] [id number] 12:06:00 Test Item Value Reference Range Interpretation Comments ABO/Rh (test code = ABO/Rh) A POS [facility] KNZGJNW1782-06-02 12:06:00 Test Item Value Reference Range Interpretation Comments Antibody Scrn (test Negative (10/29/14 7:06 code = Antibody Scrn) AM) [facility] [id number] 12:06:00 Test Item Value Reference Range Interpretation Comments ABO/Rh (test code = ABO/Rh) A POS [facility] MSDURYV8689-04-89 12:06:00 Test Item Value Reference Range Interpretation Comments Antibody Scrn (test Negative (10/29/14 7:06 code = Antibody Scrn) AM) [facility] [id number] 12:06:00 Test Item Value Reference Range Interpretation Comments ABO/Rh (test code = ABO/Rh) A POS [facility] [id number] 12:06:00 Test Item Value Reference Range Interpretation Comments Antibody Scrn (test Negative (10/29/14 7:06 code = Antibody Scrn) AM) [facility] [id number] 12:06:00 Test Item Value Reference Range Interpretation Comments ABO/Rh (test code = ABO/Rh) A [facility] [employer] [id number] 16:50:00 Test Item Value Reference Range Interpretation Comments eGFR (test code = eGFR) 121 [facility]2015-03-27 16:50:00 Test Item Value Reference Range Interpretation Comments Chloride Lvl (test code = Chloride Lvl) 105 95-109 [facility]2015-03-27 16:50:00 Test Item Value Reference Range Interpretation Comments Potassium Lvl (test code = Potassium 4.3 3.5-5.1 Lvl) [facility]2015-03-27 16:50:00 Test Item Value Reference Range Interpretation Comments Sodium Lvl (test code = Sodium Lvl) 143 135-145 [facility]2015-03-27 16:50:00 Test Item Value Reference Range Interpretation Comments Creatinine Lvl (test code = Creatinine 0.7 0.5-1.4 Lvl) [facility]2015-03-27 16:50:00 Test Item Value Reference Range Interpretation Comments CO2 (test code = CO2) 30 24-32 [facility]2015-03-27 16:50:00 Test Item Value Reference Range Interpretation Comments Calcium Lvl (test code = Calcium Lvl) 9.3 8.5-10.5 [facility]2015-03-27 16:50:00 Test Item Value Reference Range Interpretation Comments BUN (test code = BUN) 10 7-22 [facility]2015-03-27 16:50:00 Test Item Value Reference Range Interpretation Comments Glucose Lvl (test code = Glucose Lvl) 84 70-99 [facility]2015-03-27 16:50:00 Test Item Value Reference Range Interpretation Comments AGAP (test code = AGAP) 12.3 10.0-20.0 [facility] HospitalObzxhfnUHLNXKIJVQ5791-07-56 16:50:00 Test Item Value Reference Range Interpretation Comments Monocytes (test code = Monocytes) 4.7 2.0-12.0 [facility] HospitalQmrzylgSOYSCNKKPO8291-48-39 16:50:00 Test Item Value Reference Range Interpretation Comments Eosinophils (test code = Eosinophils) 1.6 <=4.0 [facility] HospitalLqkwovzWNDCFKGYCW4255-13-67 16:50:00 Test Item Value Reference Range Interpretation Comments Basophils (test code = Basophils) 0.6 <=1.0 [place] 140425-03-27 16:50:00 Test Item Value Reference Range Interpretation Comments Lymphocytes (test code = Lymphocytes) 28.0 20.0-40.0 [facility] HospitalCzzownsLDMRWDTDCO1702-11-57 16:50:00 Test Item Value Reference Range Interpretation Comments Lymphocytes # (test code = Lymphocytes 2.1 1.0-5.5 #) [facility] HospitalZphptwxWWQXFNGMYE6623-73-85 16:50:00 Test Item Value Reference Range Interpretation Comments Monocytes # (test code = Monocytes #) 0.4 <=0.8 [facility] HospitalPfbwzkmURSIFFLRYF2913-06-75 16:50:00 Test Item Value Reference Range Interpretation Comments Segs-Bands # (test code = Segs-Bands #) 5.0 1.5-8.1 [facility] HospitalDhmqyydSYRMYMTORP9701-31-69 16:50:00 Test Item Value Reference Range Interpretation Comments Eosinophils # (test code = Eosinophils 0.1 <=0.5 #) [facility] HospitalPtnbmdyNTOJHHTVPM3295-30-81 16:50:00 Test Item Value Reference Range Interpretation Comments Segs (test code = Segs) 65.1 45.0-75.0 [facility] HospitalAuljynuXHELZYWEVD5183-06-35 16:50:00 Test Item Value Reference Range Interpretation Comments WBC (test code = WBC) 7.6 3.7-10.4 [facility] HospitalGsjiibxWSJOOLIDSD8620-38-46 16:50:00 Test Item Value Reference Range Interpretation Comments MCV (test code = MCV) 89.0 80.0-98.0 [facility] HospitalHfeehvmDFRDCGWKKM9396-95-77 16:50:00 Test Item Value Reference Range Interpretation Comments MCHC (test code = MCHC) 33.2 32.0-36.0 [facility] HospitalUrkwalzIRLDATKBYM5725-79-34 16:50:00 Test Item Value Reference Range Interpretation Comments MCH (test code = MCH) 29.6 pg 27.0-31.0 [facility] HospitalGdhcejjAUXOXZCTQD7309-79-21 16:50:00 Test Item Value Reference Range Interpretation Comments RBC (test code = RBC) 4.94 4.20-5.40 [facility] HospitalMaukhfhGLLNVOWOYG7741-81-93 16:50:00 Test Item Value Reference Range Interpretation Comments Hct (test code = Hct) 43.9 36.0-48.0 [facility] HospitalRmhyemvVHIRGIWXTK0634-88-66 16:50:00 Test Item Value Reference Range Interpretation Comments Hgb (test code = Hgb) 14.6 12.0-16.0 [facility] HospitalYxlcibuLYKDQVWQYA0480-30-61 16:50:00 Test Item Value Reference Range Interpretation Comments Platelet (test code = Platelet) 276 133-450 [facility] HospitalUzeeajpRFWWHXFIFX6483-51-98 16:50:00 Test Item Value Reference Range Interpretation Comments RDW (test code = RDW) 12.3 11.5-14.5 [facility] HospitalRyjjcalZOKWTKWESQ1381-03-48 16:50:00 Test Item Value Reference Range Interpretation Comments MPV (test code = MPV) 8.9 7.4-10.4 [facility]2015-03-27 16:50:00 Test Item Value Reference Range Interpretation Comments eGFR (test code = eGFR) 121 [facility]2015-03-27 16:50:00 Test Item Value Reference Range Interpretation Comments Chloride Lvl (test code = Chloride Lvl) 105 95-109 [facility]2015-03-27 16:50:00 Test Item Value Reference Range Interpretation Comments Potassium Lvl (test code = Potassium 4.3 3.5-5.1 Lvl) [facility]2015-03-27 16:50:00 Test Item Value Reference Range Interpretation Comments Sodium Lvl (test code = Sodium Lvl) 143 135-145 [facility]2015-03-27 16:50:00 Test Item Value Reference Range Interpretation Comments Creatinine Lvl (test code = Creatinine 0.7 0.5-1.4 Lvl) [facility]2015-03-27 16:50:00 Test Item Value Reference Range Interpretation Comments CO2 (test code = CO2) 30 24-32 [facility]2015-03-27 16:50:00 Test Item Value Reference Range Interpretation Comments Calcium Lvl (test code = Calcium Lvl) 9.3 8.5-10.5 [facility]2015-03-27 16:50:00 Test Item Value Reference Range Interpretation Comments BUN (test code = BUN) 10 7-22 [facility]2015-03-27 16:50:00 Test Item Value Reference Range Interpretation Comments Glucose Lvl (test code = Glucose Lvl) 84 70-99 [facility]2015-03-27 16:50:00 Test Item Value Reference Range Interpretation Comments AGAP (test code = AGAP) 12.3 10.0-20.0 [facility] HospitalPaaferuCUGUBABBGW6513-38-71 16:50:00 Test Item Value Reference Range Interpretation Comments Monocytes (test code = Monocytes) 4.7 2.0-12.0 [facility] HospitalNeewzgrXSUMRMIJTF8703-16-95 16:50:00 Test Item Value Reference Range Interpretation Comments Eosinophils (test code = 1.6 See_Comment [A utomated message] The Eosinophils) system which ge nerated this result tra nsmitted reference range : <=4.0. The reference r joan was not used to int erpret this result as normal/abnormal . [facility] HospitalPoilczpFWEUFBWEJA5278-07-81 16:50:00 Test Item Value Reference Range Interpretation Comments Basophils (test code = 0.6 See_Comment [Aut omated message] The Basophils) system which ge nerated this result tra nsmitted reference range : <=1.0. The reference r joan was not used to int erpret this result as normal/abnormal . [facility] HospitalShrvzvrUKASWSYBMT7182-28-92 16:50:00 Test Item Value Reference Range Interpretation Comments Lymphocytes (test code = Lymphocytes) 28.0 20.0-40.0 [facility] HospitalOffrljoEUPJAZESDG1375-04-17 16:50:00 Test Item Value Reference Range Interpretation Comments Lymphocytes # (test code = Lymphocytes 2.1 1.0-5.5 #) [facility] HospitalTnsmfvqWHYIHFHZIS3469-57-07 16:50:00 Test Item Value Reference Range Interpretation Comments Monocytes # (test code 0.4 See_Comment [Aut omated message] The = Monocytes #) system which generated this result tra nsmitted reference range : <=0.8. The reference r joan was not used to int erpret this result as normal/abnormal . [facility] HospitalYgqzevrJJMLWPQNYN7630-23-97 16:50:00 Test Item Value Reference Range Interpretation Comments Segs-Bands # (test code = Segs-Bands #) 5.0 1.5-8.1 [facility] HospitalBzehyvdQKYSHULDJV6048-75-39 16:50:00 Test Item Value Reference Range Interpretation Comments Eosinophils # (test code 0.1 See_Comment [A utomated message] The = Eosinophils #) system whic h generated this result tra nsmitted reference range : <=0.5. The reference r joan was not used to int erpret this result as normal/abnormal . [facility] HospitalSxuqpivPIPEXLWMYW2966-14-77 16:50:00 Test Item Value Reference Range Interpretation Comments Segs (test code = Segs) 65.1 45.0-75.0 [facility] HospitalZwxowzwJIFUJFYLTA6093-10-36 16:50:00 Test Item Value Reference Range Interpretation Comments WBC (test code = WBC) 7.6 3.7-10.4 [facility] HospitalWefnatpCZMVDCKDTM5743-63-24 16:50:00 Test Item Value Reference Range Interpretation Comments MCV (test code = MCV) 89.0 80.0-98.0 [facility] HospitalHrnqchxTMAZGAKJVD4113-02-49 16:50:00 Test Item Value Reference Range Interpretation Comments MCHC (test code = MCHC) 33.2 32.0-36.0 [facility] HospitalAlbhuwdDLEDWHHBCE2777-38-21 16:50:00 Test Item Value Reference Range Interpretation Comments MCH (test code = MCH) 29.6 pg 27.0-31.0 [facility] HospitalGstpfhfFPSEJGDRLW0707-19-66 16:50:00 Test Item Value Reference Range Interpretation Comments RBC (test code = RBC) 4.94 4.20-5.40 [facility]bfdrasYOHZHRILKS6831[facility]32-[facility] 16:50:00 Test Item Value Reference Range Interpretation Comments Hct (test code = Hct) 43.9 36.0-48.0 [facility]VwpbvlsUSJLGMBHMS3659-14-55 16:50:00 Test Item Value Reference Range Interpretation Comments Hgb (test code = Hgb) 14.6 12.0-16.0 [facility]QfokedgOCHYKCMJIX7390-70-17 16:50:00 Test Item Value Reference Range Interpretation Comments Platelet (test code = Platelet) 276 133-450 [facility]DmngioiVQMFCFZPII7982-14-37 16:50:00 Test Item Value Reference Range Interpretation Comments RDW (test code = RDW) 12.3 11.5-14.5 [facility]QlrxnehLWDBBVORKG4668-81-51 16:50:00 Test Item Value Reference Range Interpretation Comments MPV (test code = MPV) 8.9 7.4-10.4 [facility]2015-03-27 16:50:00 Test Item Value Reference Range Interpretation Comments eGFR (test code = eGFR) 121 [facility]2015-03-27 16:50:00 Test Item Value Reference Range Interpretation Comments Chloride Lvl (test code = Chloride Lvl) 105 95-109 [facility]2015-03-27 16:50:00 Test Item Value Reference Range Interpretation Comments Potassium Lvl (test code = Potassium 4.3 3.5-5.1 Lvl) [facility]2015-03-27 16:50:00 Test Item Value Reference Range Interpretation Comments Sodium Lvl (test code = Sodium Lvl) 143 135-145 [place] 960325-03-27 16:50:00 Test Item Value Reference Range Interpretation Comments Creatinine Lvl (test code = Creatinine 0.7 0.5-1.4 Lvl) [facility]2015-03-27 16:50:00 Test Item Value Reference Range Interpretation Comments CO2 (test code = CO2) 30 24-32 [place] 960325-03-27 16:50:00 Test Item Value Reference Range Interpretation Comments Calcium Lvl (test code = Calcium Lvl) 9.3 8.5-10.5 [place] 960325-03-27 16:50:00 Test Item Value Reference Range Interpretation Comments BUN (test code = BUN) 10 7-22 [facility]2015-03-27 16:50:00 Test Item Value Reference Range Interpretation Comments Glucose Lvl (test code = Glucose Lvl) 84 70-99 [facility]2015-03-27 16:50:00 Test Item Value Reference Range Interpretation Comments AGAP (test code = AGAP) 12.3 10.0-20.0 [facility]RwxtxsdNANKQMCQNG1373-31-23 16:50:00 Test Item Value Reference Range Interpretation Comments Monocytes (test code = Monocytes) 4.7 2.0-12.0 [facility] HospitalTlhrkuyGNCOEALIMD8647-33-07 16:50:00 Test Item Value Reference Range Interpretation Comments Eosinophils (test code = 1.6 See_Comment [A utomated message] The Eosinophils) system which ge nerated this result tra nsmitted reference range : <=4.0. The reference r joan was not used to int erpret this result as normal/abnormal . [facility] HospitalWyxuzpzHSOOUBNUML7163-51-93 16:50:00 Test Item Value Reference Range Interpretation Comments Basophils (test code = 0.6 See_Comment [Aut omated message] The Basophils) system which ge nerated this result tra nsmitted reference range : <=1.0. The reference r joan was not used to int erpret this result as normal/abnormal . [facility] HospitalOesvbpqVUMHJILUEA4831-19-40 16:50:00 Test Item Value Reference Range Interpretation Comments Lymphocytes (test code = Lymphocytes) 28.0 20.0-40.0 [facility] HospitalZoiveepRBRQIVNBVS0303-26-75 16:50:00 Test Item Value Reference Range Interpretation Comments Lymphocytes # (test code = Lymphocytes 2.1 1.0-5.5 #) [facility] HospitalBjzzelgYVKZMRUXEE0383-91-18 16:50:00 Test Item Value Reference Range Interpretation Comments Monocytes # (test code 0.4 See_Comment [Aut omated message] The = Monocytes #) system which generated this result tra nsmitted reference range : <=0.8. The reference r joan was not used to int erpret this result as normal/abnormal . [facility] HospitalNwbadziBCGOBRFUXC0882-02-95 16:50:00 Test Item Value Reference Range Interpretation Comments Segs-Bands # (test code = Segs-Bands #) 5.0 1.5-8.1 [facility] HospitalFncmcxgPXQODCMUDO5518-42-26 16:50:00 Test Item Value Reference Range Interpretation Comments Eosinophils # (test code 0.1 See_Comment [A utomated message] The = Eosinophils #) system whic h generated this result tra nsmitted reference range : <=0.5. The reference r joan was not used to int erpret this result as normal/abnormal . [facility] HospitalRruwamnBRGYVBEQEC9100-24-72 16:50:00 Test Item Value Reference Range Interpretation Comments Segs (test code = Segs) 65.1 45.0-75.0 [facility] HospitalNpyvjfoEQOBEPJEDX1778-19-55 16:50:00 Test Item Value Reference Range Interpretation Comments WBC (test code = WBC) 7.6 3.7-10.4 [facility] HospitalErdndjhXPCWFZZHSE9603-97-27 16:50:00 Test Item Value Reference Range Interpretation Comments MCV (test code = MCV) 89.0 80.0-98.0 [facility] HospitalOjqxnoqKOJZNENQHA9125-32-14 16:50:00 Test Item Value Reference Range Interpretation Comments MCHC (test code = MCHC) 33.2 32.0-36.0 [facility] HospitalWdtfoipAAJYEDZKOK2825-38-93 16:50:00 Test Item Value Reference Range Interpretation Comments MCH (test code = MCH) 29.6 pg 27.0-31.0 [facility] HospitalZjiwtoyFURYPRPDTH6156-94-90 16:50:00 Test Item Value Reference Range Interpretation Comments RBC (test code = RBC) 4.94 4.20-5.40 [facility] HospitalAukiohwFQTXTPGSVH6174-90-91 16:50:00 Test Item Value Reference Range Interpretation Comments Hct (test code = Hct) 43.9 36.0-48.0 [facility] HospitalCprcxyoNTVLJAEERY2942-79-76 16:50:00 Test Item Value Reference Range Interpretation Comments Hgb (test code = Hgb) 14.6 12.0-16.0 [facility] HospitalCujoywzSMPDDXGXOW0235-02-33 16:50:00 Test Item Value Reference Range Interpretation Comments Platelet (test code = Platelet) 276 133-450 [facility] HospitalBhhheneUZQTIAUHZS6792-56-45 16:50:00 Test Item Value Reference Range Interpretation Comments RDW (test code = RDW) 12.3 11.5-14.5 [facility] HospitalNnfyqnoWPKHDBXPRN6756-56-85 16:50:00 Test Item Value Reference Range Interpretation Comments MPV (test code = MPV) 8.9 7.4-10.4 [facility]2015-03-27 16:50:00 Test Item Value Reference Range Interpretation Comments eGFR (test code = eGFR) 121 [facility]2015-03-27 16:50:00 Test Item Value Reference Range Interpretation Comments Chloride Lvl (test code = Chloride Lvl) 105 95-109 [facility]2015-03-27 16:50:00 Test Item Value Reference Range Interpretation Comments Potassium Lvl (test code = Potassium 4.3 3.5-5.1 Lvl) [facility]2015-03-27 16:50:00 Test Item Value Reference Range Interpretation Comments Sodium Lvl (test code = Sodium Lvl) 143 135-145 [facility]2015-03-27 16:50:00 Test Item Value Reference Range Interpretation Comments Creatinine Lvl (test code = Creatinine 0.7 0.5-1.4 Lvl) [facility]2015-03-27 16:50:00 Test Item Value Reference Range Interpretation Comments CO2 (test code = CO2) 30 24-32 [facility]2015-03-27 16:50:00 Test Item Value Reference Range Interpretation Comments Calcium Lvl (test code = Calcium Lvl) 9.3 8.5-10.5 [place] 960325-03-27 16:50:00 Test Item Value Reference Range Interpretation Comments BUN (test code = BUN) 10 7-22 [facility]2015-03-27 16:50:00 Test Item Value Reference Range Interpretation Comments Glucose Lvl (test code = Glucose Lvl) 84 70-99 [place] 960325-03-27 16:50:00 Test Item Value Reference Range Interpretation Comments AGAP (test code = AGAP) 12.3 10.0-20.0 [place] 140425-03-27 16:50:00 Test Item Value Reference Range Interpretation Comments Monocytes (test code = Monocytes) 4.7 2.0-12.0 [facility] HospitalAymqogxCXVLJDMBKM7318-27-67 16:50:00 Test Item Value Reference Range Interpretation Comments Eosinophils (test code = 1.6 See_Comment [A utomated message] The Eosinophils) system which ge nerated this result tra nsmitted reference range : <=4.0. The reference r joan was not used to int erpret this result as normal/abnormal . [facility] HospitalSqcjvrzJRWRYUCZCU9604-68-73 16:50:00 Test Item Value Reference Range Interpretation Comments Basophils (test code = 0.6 See_Comment [Aut omated message] The Basophils) system which ge nerated this result tra nsmitted reference range : <=1.0. The reference r joan was not used to int erpret this result as normal/abnormal . [facility] HospitalDlugtqaKDWCEFMEZU7207-44-20 16:50:00 Test Item Value Reference Range Interpretation Comments Lymphocytes (test code = Lymphocytes) 28.0 20.0-40.0 [facility] HospitalTxoykchNVWAOJPNBD8301-58-52 16:50:00 Test Item Value Reference Range Interpretation Comments Lymphocytes # (test code = Lymphocytes 2.1 1.0-5.5 #) [facility] HospitalSrjiqthFPOQWRJGTC7937-31-27 16:50:00 Test Item Value Reference Range Interpretation Comments Monocytes # (test code 0.4 See_Comment [Aut omated message] The = Monocytes #) system which generated this result tra nsmitted reference range : <=0.8. The reference r joan was not used to int erpret this result as normal/abnormal . [facility] HospitalVidigpzEFPYPJYSSZ7921-40-93 16:50:00 Test Item Value Reference Range Interpretation Comments Segs-Bands # (test code = Segs-Bands #) 5.0 1.5-8.1 [facility] HospitalCthryicWISAPNZTWN5696-12-66 16:50:00 Test Item Value Reference Range Interpretation Comments Eosinophils # (test code 0.1 See_Comment [A utomated message] The = Eosinophils #) system whic h generated this result tra nsmitted reference range : <=0.5. The reference r joan was not used to int erpret this result as normal/abnormal . [facility] HospitalAbmrhuaSHEGCGXEXR1211-45-70 16:50:00 Test Item Value Reference Range Interpretation Comments Segs (test code = Segs) 65.1 45.0-75.0 [facility] HospitalJytjrmwERXOKYQBGD8259-68-06 16:50:00 Test Item Value Reference Range Interpretation Comments WBC (test code = WBC) 7.6 3.7-10.4 [facility] HospitalWgnnmbgIATTDFJKTT9393-07-06 16:50:00 Test Item Value Reference Range Interpretation Comments MCV (test code = MCV) 89.0 80.0-98.0 [facility] HospitalNakoezlBWURKAGEIC3629-10-84 16:50:00 Test Item Value Reference Range Interpretation Comments MCHC (test code = MCHC) 33.2 32.0-36.0 [facility] HospitalCvvsbyhLGTZSNGAXY3923-98-16 16:50:00 Test Item Value Reference Range Interpretation Comments MCH (test code = MCH) 29.6 pg 27.0-31.0 [facility] HospitalJggzllhHYANGTWWME6149-07-10 16:50:00 Test Item Value Reference Range Interpretation Comments RBC (test code = RBC) 4.94 4.20-5.40 [facility] HospitalAjyxcqvUJYDZSHHCV6880-49-76 16:50:00 Test Item Value Reference Range Interpretation Comments Hct (test code = Hct) 43.9 36.0-48.0 [facility] HospitalOeudpnrQVTLCGMKAC2113-46-20 16:50:00 Test Item Value Reference Range Interpretation Comments Hgb (test code = Hgb) 14.6 12.0-16.0 [facility]ELUNYDGCDM3622[facility]67-[facility] 16:50:00 Test Item Value Reference Range Interpretation Comments Platelet (test code = Platelet) 276 133-450 [facility] HospitalKsqhhgzQQRVSMSOOM1586-65-99 16:50:00 Test Item Value Reference Range Interpretation Comments RDW (test code = RDW) 12.3 11.5-14.5 [facility] HospitalIyajsiiEUJQIDUHXZ5269-65-57 16:50:00 Test Item Value Reference Range Interpretation Comments MPV (test code = MPV) 8.9 7.4-10.4 [facility]2014-12-15 15:59:00 Test Item Value Reference Range Interpretation Comments Protein CSF (test code = Protein CSF) 40 15-45 [facility]2014-12-15 15:59:00 Test Item Value Reference Range Interpretation Comments Monocyte CSF (test code = Monocyte CSF) 7 15-45 [facility]2014-12-15 15:59:00 Test Item Value Reference Range Interpretation Comments Lymph CSF (test code = Lymph CSF) 55 40-80 [facility]2014-12-15 15:59:00 Test Item Value Reference Range Interpretation Comments Segs CSF (test code = Segs CSF) [address] [facility]2014-12-15 15:59:00 Test Item Value Reference Range Interpretation Comments WBC CSF (test code = WBC CSF) [address] <=53 [facility]2014-12-15 15:59:00 Test Item Value Reference Range Interpretation Comments RBC CSF (test code = RBC CSF) [address]6490 <=03 [facility]2014-12-15 15:59:00 Test Item Value Reference Range Interpretation Comments Color CSF (test code = Light Red Color CSF) *ABN*(07/15/14 9:59 AM) [facility]2014-12-15 15:59:00 Test Item Value Reference Range Interpretation Comments Tube Num CSF (test xxxxxxx (07/15/14 9:59 code = Tube Num CSF) AM) [facility]2014-12-15 15:59:00 Test Item Value Reference Range Interpretation Comments Clarity CSF (test code Slight *ABN*(07/15/14 = Clarity CSF) 9:59 AM) [facility]2014-12-15 15:59:00 Test Item Value Reference Range Interpretation Comments Supernat CSF (test Colorless (07/15/14 code = Supernat CSF) 9:59 AM) [facility]2014-12-15 15:59:00 Test Item Value Reference Range Interpretation Comments Glucose CSF (test code = Glucose CSF) 59 45-80 [facility]2014-12-15 15:59:00 Test Item Value Reference Range Interpretation Comments Color CSF (test code = Light Red Color CSF) *ABN*(07/15/14 9:59 AM) [facility]2014-12-15 15:59:00 Test Item Value Reference Range Interpretation Comments Tube Num CSF (test xxxxxxx (07/15/14 9:59 code = Tube Num CSF) AM) [facility]2014-12-15 15:59:00 Test Item Value Reference Range Interpretation Comments Clarity CSF (test code Slight *ABN*(07/15/14 = Clarity CSF) 9:59 AM) [facility]2014-12-15 15:59:00 Test Item Value Reference Range Interpretation Comments Supernat CSF (test Colorless (07/15/14 code = Supernat CSF) 9:59 AM) [facility]2014-12-15 15:59:00 Test Item Value Reference Range Interpretation Comments Glucose CSF (test code = Glucose CSF) 59 45-80 [facility]2014-12-15 15:59:00 Test Item Value Reference Range Interpretation Comments Protein CSF (test code = Protein CSF) 40 15-45 [facility]2014-12-15 15:59:00 Test Item Value Reference Range Interpretation Comments Monocyte CSF (test code = Monocyte CSF) 7 15-45 [facility]2014-12-15 15:59:00 Test Item Value Reference Range Interpretation Comments Lymph CSF (test code = Lymph CSF) 55 40-80 [facility]2014-12-15 15:59:00 Test Item Value Reference Range Interpretation Comments Segs CSF (test code = 38 See_Comment [Auto mated message] The Segs CSF) system which ge nerated this result transmit richard reference range : <=6. The reference range was not used to interpr et this result as robbie l/abnormal. [facility]2014-12-15 15:59:00 Test Item Value Reference Range Interpretation Comments WBC CSF (test code = 20 See_Comment [Autom ated message] The WBC CSF) system which ge nerated this result transmit richard reference range : <=53. The reference range was not used to interpr et this result as robbie l/abnormal. [facility] [id number] 15:59:00 Test Item Value Reference Range Interpretation Comments RBC CSF (test code = 03742 See_Comment [Autom ated message] The RBC CSF) system which ge nerated this result transmit richard reference range : <=03. The reference range was not used to interpr et this result as robbie l/abnormal. [facility] [id number] 15:59:00 Test Item Value Reference Range Interpretation Comments Color CSF (test code = Light Red Color CSF) *ABN*(07/15/14 9:59 AM) [facility] [id number] 15:59:00 Test Item Value Reference Range Interpretation Comments Tube Num CSF (test xxxxxxx (07/15/14 9:59 code = Tube Num CSF) AM) [facility] [id number] 15:59:00 Test Item Value Reference Range Interpretation Comments Clarity CSF (test code Slight *ABN*(07/15/14 = Clarity CSF) 9:59 AM) [facility] [id number] 15:59:00 Test Item Value Reference Range Interpretation Comments Supernat CSF (test Colorless (07/15/14 code = Supernat CSF) 9:59 AM) [facility] [id number] 15:59:00 Test Item Value Reference Range Interpretation Comments Glucose CSF (test code = Glucose CSF) 59 45-80 [facility] AnalyticELYGOL0777-91-11 15:59:00 Test Item Value Reference Range Interpretation Comments Protein CSF (test code = Protein CSF) 40 15-45 [facility] [id number] 15:59:00 Test Item Value Reference Range Interpretation Comments Monocyte CSF (test code = Monocyte CSF) 7 15-45 [facility] AnalyticSDZALK7146-59-81 15:59:00 Test Item Value Reference Range Interpretation Comments Lymph CSF (test code = Lymph CSF) 55 40-80 [facility] AnalyticZUDZEC2052-41-26 15:59:00 Test Item Value Reference Range Interpretation Comments Segs CSF (test code = 38 See_Comment [Auto mated message] The Segs CSF) system which ge nerated this result transmit richard reference range : <=6. The reference range was not used to interpr et this result as robbie l/abnormal. [facility] [id number] 15:59:00 Test Item Value Reference Range Interpretation Comments WBC CSF (test code = 20 See_Comment [Autom ated message] The WBC CSF) system which ge nerated this result transmit richard reference range : <=53. The reference range was not used to interpr et this result as robbie l/abnormal. [facility] [id number] 15:59:00 Test Item Value Reference Range Interpretation Comments RBC CSF (test code = 48678 See_Comment [Autom ated message] The RBC CSF) system which ge nerated this result transmit richard reference range : <=03. The reference range was not used to interpr et this result as robbie l/abnormal. [facility]2014-12-15 15:59:00 Test Item Value Reference Range Interpretation Comments Color CSF (test code = Light Red Color CSF) *ABN*(07/15/14 9:59 AM) [facility]2014-12-15 15:59:00 Test Item Value Reference Range Interpretation Comments Tube Num CSF (test xxxxxxx (07/15/14 9:59 code = Tube Num CSF) AM) [facility]2014-12-15 15:59:00 Test Item Value Reference Range Interpretation Comments Clarity CSF (test code Slight *ABN*(07/15/14 = Clarity CSF) 9:59 AM) [facility]2014-12-15 15:59:00 Test Item Value Reference Range Interpretation Comments Supernat CSF (test Colorless (07/15/14 code = Supernat CSF) 9:59 AM) [facility] [id number] 15:59:00 Test Item Value Reference Range Interpretation Comments Glucose CSF (test code = Glucose CSF) 59 45-80 [facility]2014-12-15 15:59:00 Test Item Value Reference Range Interpretation Comments Protein CSF (test code = Protein CSF) 40 15-45 [facility]2014-12-15 15:59:00 Test Item Value Reference Range Interpretation Comments Monocyte CSF (test code = Monocyte CSF) 7 15-45 [employer]2014-12-15 15:59:00 Test Item Value Reference Range Interpretation Comments Lymph CSF (test code = Lymph CSF) 55 40-80 [facility] [employer]2014-12-15 15:59:00 Test Item Value Reference Range Interpretation Comments Segs CSF (test code = 38 See_Comment [Auto mated message] The Segs CSF) system which ge nerated this result transmit richard reference range : <=6. The reference range was not used to interpr et this result as robbie l/abnormal. [employer]2014-12-15 15:59:00 Test Item Value Reference Range Interpretation Comments WBC CSF (test code = 20 See_Comment [Autom ated message] The WBC CSF) system which ge nerated this result transmit richard reference range : <=53. The reference range was not used to interpr et this result as robbie l/abnormal. [employer]2014-12-15 15:59:00 Test Item Value Reference Range Interpretation Comments RBC CSF (test code = 95759 See_Comment [Autom ated message] The RBC CSF) system which ge nerated this result transmit richard reference range : <=03. The reference range was not used to interpr et this result as robbie l/abnormal. [employer] [id number] 12:29:00 Test Item Value Reference Range Interpretation Comments Antibody Scrn (test Negative (07/15/14 code = Antibody Scrn) 6:29 AM) [employer] [id number] 12:29:00 Test Item Value Reference Range Interpretation Comments ABO/Rh (test code = ABO/Rh) A POS [employer] [id number] 12:29:00 Test Item Value Reference Range Interpretation Comments Antibody Scrn (test Negative (07/15/14 code = Antibody Scrn) 6:29 AM) [employer] [id number] 12:29:00 Test Item Value Reference Range Interpretation Comments ABO/Rh (test code = ABO/Rh) A POS [employer] [id number] 12:29:00 Test Item Value Reference Range Interpretation Comments Antibody Scrn (test Negative (07/15/14 code = Antibody Scrn) 6:29 AM) [employer] [id number] 12:29:00 Test Item Value Reference Range Interpretation Comments ABO/Rh (test code = ABO/Rh) A POS [facility] [employer] [id number] 12:29:00 Test Item Value Reference Range Interpretation Comments Antibody Scrn (test Negative (07/15/14 code = Antibody Scrn) 6:29 AM) [employer] [id number] 12:29:00 Test Item Value Reference Range Interpretation Comments ABO/Rh (test code = ABO/Rh) A POS [facility] [employer]2014-12-15 12:03:00 Test Item Value Reference Range Interpretation Comments U Preg (test code = U Negative (07/15/14 6:03 Preg) AM) [facility] [employer]2014-12-15 12:03:00 Test Item Value Reference Range Interpretation Comments U Preg (test code = U Negative (07/15/14 6:03 Preg) AM) [employer]2014-12-15 12:03:00 Test Item Value Reference Range Interpretation Comments U Preg (test code = U Negative (07/15/14 6:03 Preg) AM) [facility]2014-12-15 12:03:00 Test Item Value Reference Range Interpretation Comments U Preg (test code = U Negative (07/15/14 6:03 Preg) AM) [employer] [id number] 20:00:00 Test Item Value Reference Range Interpretation Comments eGFR (test code = eGFR) 121 [facility] [employer] [id number] 20:00:00 Test Item Value Reference Range Interpretation Comments Calcium Lvl (test code = Calcium Lvl) 10.0 8.5-10.5 [employer] [id number] 20:00:00 Test Item Value Reference Range Interpretation Comments AST (test code = AST) 8 <=37 [employer] [id number] 20:00:00 Test Item Value Reference Range Interpretation Comments ALT (test code = ALT) 13 <=65 [employer]2014-12-11 20:00:00 Test Item Value Reference Range Interpretation Comments Albumin Lvl (test code = Albumin Lvl) 4.7 3.5-5.0 [employer] [id number] 20:00:00 Test Item Value Reference Range Interpretation Comments Total Protein (test code = Total 7.9 6.4-8.4 Protein) [facility]2014-12-11 20:00:00 Test Item Value Reference Range Interpretation Comments Bili Total (test code = Bili Total) 0.7 0.2-1.3 [facility]2014-12-11 20:00:00 Test Item Value Reference Range Interpretation Comments Alk Phos (test code = Alk Phos) 59 39-136 [facility]2014-12-11 20:00:00 Test Item Value Reference Range Interpretation Comments CO2 (test code = CO2) 30 24-32 [facility]2014-12-11 20:00:00 Test Item Value Reference Range Interpretation Comments Sodium Lvl (test code = Sodium Lvl) 142 135-145 [facility]2014-12-11 20:00:00 Test Item Value Reference Range Interpretation Comments Potassium Lvl (test code = Potassium 4.3 3.5-5.1 Lvl) [facility] [facility]2014-12-11 20:00:00 Test Item Value Reference Range Interpretation Comments Chloride Lvl (test code = Chloride Lvl) 103 95-109 [facility]2014-12-11 20:00:00 Test Item Value Reference Range Interpretation Comments Glucose Lvl (test code = Glucose Lvl) 78 70-99 [facility]2014-12-11 20:00:00 Test Item Value Reference Range Interpretation Comments BUN (test code = BUN) 10 7-22 [facility]2014-12-11 20:00:00 Test Item Value Reference Range Interpretation Comments Creatinine Lvl (test code = Creatinine 0.7 0.5-1.4 Lvl) [facility]2014-12-11 20:00:00 Test Item Value Reference Range Interpretation Comments Globulin (test code = Globulin) 3.2 2.0-4.0 [facility]2014-12-11 20:00:00 Test Item Value Reference Range Interpretation Comments B/C Ratio (test code = B/C Ratio) 14 6-25 [facility]2014-12-11 20:00:00 Test Item Value Reference Range Interpretation Comments AGAP (test code = AGAP) 13.3 10.0-20.0 [facility]2014-12-11 20:00:00 Test Item Value Reference Range Interpretation Comments A/G Ratio (test code = A/G Ratio) 1.5 0.7-1.6 [facility]iv[facility]uEXHKYCZYHF4015-54-29 [facility]:00 Test Item Value Reference Range Interpretation Comments INR (test code = INR) 0.96 0.85-1.17 [facility]NzcpwswRFRELKGHQP3452-17-38 20:00:00 Test Item Value Reference Range Interpretation Comments PT (test code = PT) 12.8 s 12.0-14.7 [facility]GhqfupeJQNVIFHVHY0489-82-52 20:00:00 Test Item Value Reference Range Interpretation Comments PTT (test code = PTT) 30.3 s 22.9-35.8 [facility] HospitalSrqolkcQYUUKNADHC3131-63-01 20:00:00 Test Item Value Reference Range Interpretation Comments Hgb (test code = Hgb) 14.7 12.0-16.0 [facility]QnrtxthJEUPQDOQLQ4316-74-34 20:00:00 Test Item Value Reference Range Interpretation Comments WBC (test code = WBC) 7.6 3.7-10.4 [facility] HospitalPizitzbPAELKNZQXC9534-98-30 20:00:00 Test Item Value Reference Range Interpretation Comments RBC (test code = RBC) 4.96 4.20-5.40 [facility] HospitalTabphskROAVHOAIZJ3993-29-75 20:00:00 Test Item Value Reference Range Interpretation Comments MCV (test code = MCV) 90.2 80.0-98.0 [facility] HospitalGzlqbbhXNXVZJFWTS0525-22-48 20:00:00 Test Item Value Reference Range Interpretation Comments MCH (test code = MCH) 29.6 pg 27.0-31.0 [facility] HospitalLzetpsyFKKNKUKWEM8596-88-83 20:00:00 Test Item Value Reference Range Interpretation Comments MCHC (test code = MCHC) 32.8 32.0-36.0 [facility] HospitalVmnlfrsMOMDVRXWWR0217-15-55 20:00:00 Test Item Value Reference Range Interpretation Comments RDW (test code = RDW) 12.7 11.5-14.5 [facility] HospitalRndacihILGAMPIUXW1604-81-32 20:00:00 Test Item Value Reference Range Interpretation Comments Hct (test code = Hct) 44.7 36.0-48.0 [place] 140424-12-11 20:00:00 Test Item Value Reference Range Interpretation Comments Platelet (test code = Platelet) 308 133-450 [facility] HospitalUxncfehCDSYVUPZJE0552-66-02 20:00:00 Test Item Value Reference Range Interpretation Comments MPV (test code = MPV) 8.7 7.4-10.4 [facility] HospitalHvrzflrXAXZFQIDQE1803-10-07 20:00:00 Test Item Value Reference Range Interpretation Comments Segs (test code = Segs) 67.8 45.0-75.0 [facility] HospitalXmrgpvkQXFTEMWHLB0333-49-33 20:00:00 Test Item Value Reference Range Interpretation Comments Monocytes (test code = Monocytes) 5.1 2.0-12.0 [facility] HospitalQtwcxjuTZXJLMSTTK4744-87-26 20:00:00 Test Item Value Reference Range Interpretation Comments Eosinophils (test code = Eosinophils) 1.7 <=4.0 [facility] HospitalRetcninMGRWJGYYRN4038-60-55 20:00:00 Test Item Value Reference Range Interpretation Comments Basophils (test code = Basophils) 0.5 <=1.0 [facility] HospitalWctzrjcHMWORHOIDH5561-05-56 20:00:00 Test Item Value Reference Range Interpretation Comments Segs-Bands # (test code = Segs-Bands #) 5.2 1.5-8.1 [facility] HospitalGzsqohkDYQSJCDFRN2557-53-17 20:00:00 Test Item Value Reference Range Interpretation Comments Lymphocytes (test code = Lymphocytes) 24.9 20.0-40.0 [facility] HospitalHcwhtvmSTYYNZRZFX8542-22-22 20:00:00 Test Item Value Reference Range Interpretation Comments Eosinophils # (test code = Eosinophils 0.1 <=0.5 #) [facility] HospitalSegskxyYJUJTEKKJC2262-60-55 20:00:00 Test Item Value Reference Range Interpretation Comments Lymphocytes # (test code = Lymphocytes 1.9 1.0-5.5 #) [facility] HospitalNrjxutfRKGMNWCMEF0412-22-54 20:00:00 Test Item Value Reference Range Interpretation Comments Monocytes # (test code = Monocytes #) 0.4 <=0.8 [facility]2014-12-11 20:00:00 Test Item Value Reference Range Interpretation Comments eGFR (test code = eGFR) 121 [facility]2014-12-11 20:00:00 Test Item Value Reference Range Interpretation Comments Calcium Lvl (test code = Calcium Lvl) 10.0 8.5-10.5 [facility]2014-12-11 20:00:00 Test Item Value Reference Range Interpretation Comments AST (test code = AST) 8 See_Comment [Auto mated message] The system which ge nerated this result transmit richard reference range : <=37. The reference range was not used to interpr et this result as robbie l/abnormal. [facility]2014-12-11 20:00:00 Test Item Value Reference Range Interpretation Comments ALT (test code = ALT) 13 See_Comment [Auto mated message] The system which ge nerated this result transmit richard reference range : <=65. The reference range was not used to interpr et this result as robbie l/abnormal. [facility]2014-12-11 20:00:00 Test Item Value Reference Range Interpretation Comments Albumin Lvl (test code = Albumin Lvl) 4.7 3.5-5.0 [facility]2014-12-11 20:00:00 Test Item Value Reference Range Interpretation Comments Total Protein (test code = Total 7.9 6.4-8.4 Protein) [facility]2014-12-11 20:00:00 Test Item Value Reference Range Interpretation Comments Bili Total (test code = Bili Total) 0.7 0.2-1.3 [facility]2014-12-11 20:00:00 Test Item Value Reference Range Interpretation Comments Alk Phos (test code = Alk Phos) 59 39-136 [facility]2014-12-11 20:00:00 Test Item Value Reference Range Interpretation Comments CO2 (test code = CO2) 30 24-32 [facility]2014-12-11 20:00:00 Test Item Value Reference Range Interpretation Comments Sodium Lvl (test code = Sodium Lvl) 142 135-145 [facility]2014-12-11 20:00:00 Test Item Value Reference Range Interpretation Comments Potassium Lvl (test code = Potassium 4.3 3.5-5.1 Lvl) [facility]2014-12-11 20:00:00 Test Item Value Reference Range Interpretation Comments Chloride Lvl (test code = Chloride Lvl) 103 95-109 [facility]2014-12-11 20:00:00 Test Item Value Reference Range Interpretation Comments Glucose Lvl (test code = Glucose Lvl) 78 70-99 [facility]2014-12-11 20:00:00 Test Item Value Reference Range Interpretation Comments BUN (test code = BUN) 10 7-22 [facility]2014-12-11 20:00:00 Test Item Value Reference Range Interpretation Comments Creatinine Lvl (test code = Creatinine 0.7 0.5-1.4 Lvl) [facility]2014-12-11 20:00:00 Test Item Value Reference Range Interpretation Comments Globulin (test code = Globulin) 3.2 2.0-4.0 [facility]2014-12-11 20:00:00 Test Item Value Reference Range Interpretation Comments B/C Ratio (test code = B/C Ratio) 14 6-25 [place] 960324-12-11 20:00:00 Test Item Value Reference Range Interpretation Comments AGAP (test code = AGAP) 13.3 10.0-20.0 [facility]2014-12-11 20:00:00 Test Item Value Reference Range Interpretation Comments A/G Ratio (test code = A/G Ratio) 1.5 0.7-1.6 [facility] HospitalOfnecoqIAVXGKJYKZ3544-68-90 20:00:00 Test Item Value Reference Range Interpretation Comments INR (test code = INR) 0.96 0.85-1.17 [facility] HospitalHwieqzlDCLLRFFMBT8623-62-39 20:00:00 Test Item Value Reference Range Interpretation Comments PT (test code = PT) 12.8 s 12.0-14.7 [facility] HospitalYpcyszmVOEDHRZLCP8547-64-10 20:00:00 Test Item Value Reference Range Interpretation Comments PTT (test code = PTT) 30.3 s 22.9-35.8 [place] [address]-12-11 20:00:00 Test Item Value Reference Range Interpretation Comments Hgb (test code = Hgb) 14.7 12.0-16.0 [place] 140424-12-11 20:00:00 Test Item Value Reference Range Interpretation Comments WBC (test code = WBC) 7.6 3.7-10.4 [place] 140424-12-11 20:00:00 Test Item Value Reference Range Interpretation Comments RBC (test code = RBC) 4.96 4.20-5.40 [facility] HospitalAhowsxtUOZHGHAOUC2361-99-13 20:00:00 Test Item Value Reference Range Interpretation Comments MCV (test code = MCV) 90.2 80.0-98.0 [facility] HospitalPnkhlirMXMACULURT8830-03-69 20:00:00 Test Item Value Reference Range Interpretation Comments MCH (test code = MCH) 29.6 pg 27.0-31.0 [facility] HospitalQkbhknpIQVRIEJNIG0099-52-96 20:00:00 Test Item Value Reference Range Interpretation Comments MCHC (test code = MCHC) 32.8 32.0-36.0 [facility] HospitalIsbzkznSOCHOAJNUY1630-42-81 20:00:00 Test Item Value Reference Range Interpretation Comments RDW (test code = RDW) 12.7 11.5-14.5 [facility] HospitalLpxcwkiAOTDMMGKPG2933-73-60 20:00:00 Test Item Value Reference Range Interpretation Comments Hct (test code = Hct) 44.7 36.0-48.0 [facility] HospitalUppaqtmMBLGOKKLVA5507-75-67 20:00:00 Test Item Value Reference Range Interpretation Comments Platelet (test code = Platelet) 308 133-450 [facility] HospitalSiftszfCKVBXKJVCI4281-26-96 20:00:00 Test Item Value Reference Range Interpretation Comments MPV (test code = MPV) 8.7 7.4-10.4 [facility] HospitalJaakbqoZQDHSUNSOA6708-51-03 20:00:00 Test Item Value Reference Range Interpretation Comments Segs (test code = Segs) 67.8 45.0-75.0 [facility] HospitalBpzhjsuXLGZDHCNGC6445-59-00 20:00:00 Test Item Value Reference Range Interpretation Comments Monocytes (test code = Monocytes) 5.1 2.0-12.0 [facility] HospitalEjupqwfZQTHYTCZSW3600-51-77 20:00:00 Test Item Value Reference Range Interpretation Comments Eosinophils (test code = 1.7 See_Comment [A utomated message] The Eosinophils) system which ge nerated this result tra nsmitted reference range : <=4.0. The reference r joan was not used to int erpret this result as normal/abnormal . [facility] HospitalPsxeqvdFYPZJXXFRO4058-74-03 20:00:00 Test Item Value Reference Range Interpretation Comments Basophils (test code = 0.5 See_Comment [Aut omated message] The Basophils) system which ge nerated this result tra nsmitted reference range : <=1.0. The reference r joan was not used to int erpret this result as normal/abnormal . [facility] HospitalWvdflxnPOEVQDCQWQ5344-23-35 20:00:00 Test Item Value Reference Range Interpretation Comments Segs-Bands # (test code = Segs-Bands #) 5.2 1.5-8.1 [facility] HospitalZcqhakvWMVANFXDNB3762-07-27 20:00:00 Test Item Value Reference Range Interpretation Comments Lymphocytes (test code = Lymphocytes) 24.9 20.0-40.0 [facility] HospitalYfblyhkDQRYZGKQEP6393-82-59 20:00:00 Test Item Value Reference Range Interpretation Comments Eosinophils # (test code 0.1 See_Comment [A utomated message] The = Eosinophils #) system whic h generated this result tra nsmitted reference range : <=0.5. The reference r joan was not used to int erpret this result as normal/abnormal . [facility] HospitalEgaczgmYPOSQPQZPV5727-52-07 20:00:00 Test Item Value Reference Range Interpretation Comments Lymphocytes # (test code = Lymphocytes 1.9 1.0-5.5 #) [facility] HospitalVmdddgfDLMCOOMQPG7601-42-85 20:00:00 Test Item Value Reference Range Interpretation Comments Monocytes # (test code 0.4 See_Comment [Aut omated message] The = Monocytes #) system which generated this result tra nsmitted reference range : <=0.8. The reference r joan was not used to int erpret this result as normal/abnormal . [facility] [id number] 20:00:00 Test Item Value Reference Range Interpretation Comments eGFR (test code = eGFR) 121 [facility]2014-12-11 20:00:00 Test Item Value Reference Range Interpretation Comments Calcium Lvl (test code = Calcium Lvl) 10.0 8.5-10.5 [facility]2014-12-11 20:00:00 Test Item Value Reference Range Interpretation Comments AST (test code = AST) 8 See_Comment [Auto mated message] The system which ge nerated this result transmit richard reference range : <=37. The reference range was not used to interpr et this result as robbie l/abnormal. [facility] [id number] 20:00:00 Test Item Value Reference Range Interpretation Comments ALT (test code = ALT) 13 See_Comment [Auto mated message] The system which ge nerated this result transmit richard reference range : <=65. The reference range was not used to interpr et this result as robbie l/abnormal. [facility]2014-12-11 20:00:00 Test Item Value Reference Range Interpretation Comments Albumin Lvl (test code = Albumin Lvl) 4.7 3.5-5.0 [facility]2014-12-11 20:00:00 Test Item Value Reference Range Interpretation Comments Total Protein (test code = Total 7.9 6.4-8.4 Protein) [facility]2014-12-11 20:00:00 Test Item Value Reference Range Interpretation Comments Bili Total (test code = Bili Total) 0.7 0.2-1.3 [facility]2014-12-11 20:00:00 Test Item Value Reference Range Interpretation Comments Alk Phos (test code = Alk Phos) 59 39-136 [facility]2014-12-11 20:00:00 Test Item Value Reference Range Interpretation Comments CO2 (test code = CO2) 30 24-32 [facility]2014-12-11 20:00:00 Test Item Value Reference Range Interpretation Comments Sodium Lvl (test code = Sodium Lvl) 142 135-145 [facility]2014-12-11 20:00:00 Test Item Value Reference Range Interpretation Comments Potassium Lvl (test code = Potassium 4.3 3.5-5.1 Lvl) [facility]2014-12-11 20:00:00 Test Item Value Reference Range Interpretation Comments Chloride Lvl (test code = Chloride Lvl) 103 95-109 [facility]2014-12-11 20:00:00 Test Item Value Reference Range Interpretation Comments Glucose Lvl (test code = Glucose Lvl) 78 70-99 [facility]2014-12-11 20:00:00 Test Item Value Reference Range Interpretation Comments BUN (test code = BUN) 10 7-22 [facility]2014-12-11 20:00:00 Test Item Value Reference Range Interpretation Comments Creatinine Lvl (test code = Creatinine 0.7 0.5-1.4 Lvl) [facility]2014-12-11 20:00:00 Test Item Value Reference Range Interpretation Comments Globulin (test code = Globulin) 3.2 2.0-4.0 [facility]2014-12-11 20:00:00 Test Item Value Reference Range Interpretation Comments B/C Ratio (test code = B/C Ratio) 14 6-25 [facility]2014-12-11 20:00:00 Test Item Value Reference Range Interpretation Comments AGAP (test code = AGAP) 13.3 10.0-20.0 [place] 960324-12-11 20:00:00 Test Item Value Reference Range Interpretation Comments A/G Ratio (test code = A/G Ratio) 1.5 0.7-1.6 [facility]WkfwccxGWGTQTQORM0487-79-89 20:00:00 Test Item Value Reference Range Interpretation Comments INR (test code = INR) 0.96 0.85-1.17 [place] 140424-12-11 20:00:00 Test Item Value Reference Range Interpretation Comments PT (test code = PT) 12.8 s 12.0-14.7 [place] 140424-12-11 20:00:00 Test Item Value Reference Range Interpretation Comments PTT (test code = PTT) 30.3 s 22.9-35.8 [facility] HospitalDyrsyhgMMFOKSGIIP9069-08-22 20:00:00 Test Item Value Reference Range Interpretation Comments Hgb (test code = Hgb) 14.7 12.0-16.0 [facility] HospitalLteiuhjELBMMVCMSD1073-63-80 20:00:00 Test Item Value Reference Range Interpretation Comments WBC (test code = WBC) 7.6 3.7-10.4 [facility] HospitalLxcsuguDQUZGNXNTP9142-77-39 20:00:00 Test Item Value Reference Range Interpretation Comments RBC (test code = RBC) 4.96 4.20-5.40 [facility] HospitalZjlvaotPPRKJMROBQ0380-22-79 20:00:00 Test Item Value Reference Range Interpretation Comments MCV (test code = MCV) 90.2 80.0-98.0 [facility] HospitalDqdzlavZHTIGOCCBS3270-41-62 20:00:00 Test Item Value Reference Range Interpretation Comments MCH (test code = MCH) 29.6 pg 27.0-31.0 [facility] HospitalKjqeuqwYKRZVLQDWD5231-47-89 20:00:00 Test Item Value Reference Range Interpretation Comments MCHC (test code = MCHC) 32.8 32.0-36.0 [facility] HospitalVbhwwrqHMKEUCYUQZ3717-66-22 20:00:00 Test Item Value Reference Range Interpretation Comments RDW (test code = RDW) 12.7 11.5-14.5 [facility] HospitalUmtnojsZCQNELJZZO8211-44-74 20:00:00 Test Item Value Reference Range Interpretation Comments Hct (test code = Hct) 44.7 36.0-48.0 [facility] HospitalPubhhriVKYXKMVYRH0284-49-07 20:00:00 Test Item Value Reference Range Interpretation Comments Platelet (test code = Platelet) 308 133-450 [facility] HospitalAbpqcagDSKZGPPMZF2625-07-53 20:00:00 Test Item Value Reference Range Interpretation Comments MPV (test code = MPV) 8.7 7.4-10.4 [facility]XrrxfuvCJDEQYSYYN6716-48-13 20:00:00 Test Item Value Reference Range Interpretation Comments Segs (test code = Segs) 67.8 45.0-75.0 [facility] HospitalYsutzhxDJKGZRRMSD6021-86-49 20:00:00 Test Item Value Reference Range Interpretation Comments Monocytes (test code = Monocytes) 5.1 2.0-12.0 [facility] HospitalKlvogisNOXALNIIAY3342-68-27 20:00:00 Test Item Value Reference Range Interpretation Comments Eosinophils (test code = 1.7 See_Comment [A utomated message] The Eosinophils) system which ge nerated this result tra nsmitted reference range : <=4.0. The reference r joan was not used to int erpret this result as normal/abnormal . [facility] HospitalQcugojgVIBEAWNOIL2199-89-33 20:00:00 Test Item Value Reference Range Interpretation Comments Basophils (test code = 0.5 See_Comment [Aut omated message] The Basophils) system which ge nerated this result tra nsmitted reference range : <=1.0. The reference r joan was not used to int erpret this result as normal/abnormal . [facility] HospitalSsrufkxOUPMOBQRNU0829-04-03 20:00:00 Test Item Value Reference Range Interpretation Comments Segs-Bands # (test code = Segs-Bands #) 5.2 1.5-8.1 [facility] HospitalBymregeIFKBCMWZYT1662-45-77 20:00:00 Test Item Value Reference Range Interpretation Comments Lymphocytes (test code = Lymphocytes) 24.9 20.0-40.0 [facility] HospitalQturoawTHQXNFXMYK4196-17-38 20:00:00 Test Item Value Reference Range Interpretation Comments Eosinophils # (test code 0.1 See_Comment [A utomated message] The = Eosinophils #) system whic h generated this result tra nsmitted reference range : <=0.5. The reference r joan was not used to int erpret this result as normal/abnormal . [facility] HospitalPrtxxggKCYUVXOJDC1355-60-64 20:00:00 Test Item Value Reference Range Interpretation Comments Lymphocytes # (test code = Lymphocytes 1.9 1.0-5.5 #) [facility] HospitalNretdhzDJOPFBMIIM1558-59-05 20:00:00 Test Item Value Reference Range Interpretation Comments Monocytes # (test code 0.4 See_Comment [Aut omated message] The = Monocytes #) system which generated this result tra nsmitted reference range : <=0.8. The reference r joan was not used to int erpret this result as normal/abnormal . [facility]2014-12-11 20:00:00 Test Item Value Reference Range Interpretation Comments eGFR (test code = eGFR) 121 [facility]2014-12-11 20:00:00 Test Item Value Reference Range Interpretation Comments Calcium Lvl (test code = Calcium Lvl) 10.0 8.5-10.5 [facility]2014-12-11 20:00:00 Test Item Value Reference Range Interpretation Comments AST (test code = AST) 8 See_Comment [Auto mated message] The system which ge nerated this result transmit richard reference range : <=37. The reference range was not used to interpr et this result as robbie l/abnormal. [facility] [id number] 20:00:00 Test Item Value Reference Range Interpretation Comments ALT (test code = ALT) 13 See_Comment [Auto mated message] The system which ge nerated this result transmit richard reference range : <=65. The reference range was not used to interpr et this result as robbie l/abnormal. [facility]2014-12-11 20:00:00 Test Item Value Reference Range Interpretation Comments Albumin Lvl (test code = Albumin Lvl) 4.7 3.5-5.0 [facility]2014-12-11 20:00:00 Test Item Value Reference Range Interpretation Comments Total Protein (test code = Total 7.9 6.4-8.4 Protein) [facility]2014-12-11 20:00:00 Test Item Value Reference Range Interpretation Comments Bili Total (test code = Bili Total) 0.7 0.2-1.3 [facility]2014-12-11 20:00:00 Test Item Value Reference Range Interpretation Comments Alk Phos (test code = Alk Phos) 59 39-136 [facility]2014-12-11 20:00:00 Test Item Value Reference Range Interpretation Comments CO2 (test code = CO2) 30 24-32 [facility]2014-12-11 20:00:00 Test Item Value Reference Range Interpretation Comments Sodium Lvl (test code = Sodium Lvl) 142 135-145 [facility]2014-12-11 20:00:00 Test Item Value Reference Range Interpretation Comments Potassium Lvl (test code = Potassium 4.3 3.5-5.1 Lvl) [facility]2014-12-11 20:00:00 Test Item Value Reference Range Interpretation Comments Chloride Lvl (test code = Chloride Lvl) 103 95-109 [facility]2014-12-11 20:00:00 Test Item Value Reference Range Interpretation Comments Glucose Lvl (test code = Glucose Lvl) 78 70-99 [facility]2014-12-11 20:00:00 Test Item Value Reference Range Interpretation Comments BUN (test code = BUN) 10 7-22 [facility]2014-12-11 20:00:00 Test Item Value Reference Range Interpretation Comments Creatinine Lvl (test code = Creatinine 0.7 0.5-1.4 Lvl) [facility]2014-12-11 20:00:00 Test Item Value Reference Range Interpretation Comments Globulin (test code = Globulin) 3.2 2.0-4.0 [facility]2014-12-11 20:00:00 Test Item Value Reference Range Interpretation Comments B/C Ratio (test code = B/C Ratio) 14 6-25 [facility]2014-12-11 20:00:00 Test Item Value Reference Range Interpretation Comments AGAP (test code = AGAP) 13.3 10.0-20.0 [facility]2014-12-11 20:00:00 Test Item Value Reference Range Interpretation Comments A/G Ratio (test code = A/G Ratio) 1.5 0.7-1.6 [facility]NmuskccGXFRCSEHMK8935-40-18 20:00:00 Test Item Value Reference Range Interpretation Comments INR (test code = INR) 0.96 0.85-1.17 [facility] HospitalRzodetoNATYJSADLR1371-75-66 20:00:00 Test Item Value Reference Range Interpretation Comments PT (test code = PT) 12.8 s 12.0-14.7 [facility] HospitalPmmblytBKXWULGRYW9536-88-69 20:00:00 Test Item Value Reference Range Interpretation Comments PTT (test code = PTT) 30.3 s 22.9-35.8 [facility] HospitalUjciomsALYIGVAEOI8382-62-22 20:00:00 Test Item Value Reference Range Interpretation Comments Hgb (test code = Hgb) 14.7 12.0-16.0 [facility] HospitalLxjqwkyNURFWURGBY1471-00-31 20:00:00 Test Item Value Reference Range Interpretation Comments WBC (test code = WBC) 7.6 3.7-10.4 [facility] HospitalJjnpsejXBLTXZQKBH3962-33-65 20:00:00 Test Item Value Reference Range Interpretation Comments RBC (test code = RBC) 4.96 4.20-5.40 [facility] HospitalJorphtiBZMCOLVISB0237-79-86 20:00:00 Test Item Value Reference Range Interpretation Comments MCV (test code = MCV) 90.2 80.0-98.0 [facility] HospitalTsftmmaQIGGVWWNDP2218-54-40 20:00:00 Test Item Value Reference Range Interpretation Comments MCH (test code = MCH) 29.6 pg 27.0-31.0 [facility] HospitalHdwwixyYZZXOGIPST4374-53-89 20:00:00 Test Item Value Reference Range Interpretation Comments MCHC (test code = MCHC) 32.8 32.0-36.0 [facility]LuckhqyKSWWGMPUOI1380-04-55 20:00:00 Test Item Value Reference Range Interpretation Comments RDW (test code = RDW) 12.7 11.5-14.5 [facility]YfnnfvdGXBHHBGRAB8820-12-40 20:00:00 Test Item Value Reference Range Interpretation Comments Hct (test code = Hct) 44.7 36.0-48.0 [facility] HospitalNdjxzbrVCQHOUHIKK9334-72-46 20:00:00 Test Item Value Reference Range Interpretation Comments Platelet (test code = Platelet) 308 133-450 [facility] HospitalRfbnkrzUKSPLEXFWK4516-33-87 20:00:00 Test Item Value Reference Range Interpretation Comments MPV (test code = MPV) 8.7 7.4-10.4 [facility] HospitalKdkkxiqXPOUVSFNQH2240-80-95 20:00:00 Test Item Value Reference Range Interpretation Comments Segs (test code = Segs) 67.8 45.0-75.0 [facility] HospitalBsiejmaGZHKYWQUFG3971-24-62 20:00:00 Test Item Value Reference Range Interpretation Comments Monocytes (test code = Monocytes) 5.1 2.0-12.0 [facility] HospitalMyggfomDTALXIHZGI3695-63-42 20:00:00 Test Item Value Reference Range Interpretation Comments Eosinophils (test code = 1.7 See_Comment [A utomated message] The Eosinophils) system which ge nerated this result tra nsmitted reference range : <=4.0. The reference r joan was not used to int erpret this result as normal/abnormal . [facility] HospitalVbwgczmWPZFCLDCCV3060-25-20 20:00:00 Test Item Value Reference Range Interpretation Comments Basophils (test code = 0.5 See_Comment [Aut omated message] The Basophils) system which ge nerated this result tra nsmitted reference range : <=1.0. The reference r joan was not used to int erpret this result as normal/abnormal . [facility] HospitalAxpgcqvWSGEBJMTJJ6642-65-10 20:00:00 Test Item Value Reference Range Interpretation Comments Segs-Bands # (test code = Segs-Bands #) 5.2 1.5-8.1 [facility] HospitalPcawzypPDFWJQLDOX4896-46-05 20:00:00 Test Item Value Reference Range Interpretation Comments Lymphocytes (test code = Lymphocytes) 24.9 20.0-40.0 [facility] HospitalYeerebfVCNPOHEISA6996-96-90 20:00:00 Test Item Value Reference Range Interpretation Comments Eosinophils # (test code 0.1 See_Comment [A utomated message] The = Eosinophils #) system whic h generated this result tra nsmitted reference range : <=0.5. The reference r joan was not used to int erpret this result as normal/abnormal . [facility] HospitalOmztupeMLYGVYBXHL1410-65-58 20:00:00 Test Item Value Reference Range Interpretation Comments Lymphocytes # (test code = Lymphocytes 1.9 1.0-5.5 #) [facility] HospitalVxgucuvXHAGGPOYLJ6188-23-87 20:00:00 Test Item Value Reference Range Interpretation Comments Monocytes # (test code 0.4 See_Comment [Aut omated message] The = Monocytes #) system which generated this result tra nsmitted reference range : <=0.8. The reference r joan was not used to int erpret this result as normal/abnormal . [facility]2014-10-15 19:36:00 Test Item Value Reference Range Interpretation Comments Protein CSF (test code = Protein CSF) 26 15-45 [facility]2014-10-15 19:36:00 Test Item Value Reference Range Interpretation Comments Glucose CSF (test code = Glucose CSF) 54 45-80 [facility]2014-10-15 19:36:00 Test Item Value Reference Range Interpretation Comments Clarity CSF (test code = Clear (05/15/14 2:36 Clarity CSF) PM) [facility]2014-10-15 19:36:00 Test Item Value Reference Range Interpretation Comments Supernat CSF (test Colorless (05/15/14 code = Supernat CSF) 2:36 PM) [facility]2014-10-15 19:36:00 Test Item Value Reference Range Interpretation Comments WBC CSF (test code = WBC CSF) [address] <=53 [facility]2014-10-15 19:36:00 Test Item Value Reference Range Interpretation Comments Comment CSF (test Differential not code = Comment CSF) performed on WBC count of less than 5. [facility]2014-10-15 19:36:00 Test Item Value Reference Range Interpretation Comments RBC CSF (test code = RBC CSF) [address] <=03 [facility]2014-10-15 19:36:00 Test Item Value Reference Range Interpretation Comments Tube Num CSF (test code = Tube Num CSF) [address] [facility]2014-10-15 19:36:00 Test Item Value Reference Range Interpretation Comments Color CSF (test code Colorless (05/15/14 2:36 = Color CSF) PM) [facility]2014-10-15 19:36:00 Test Item Value Reference Range Interpretation Comments Protein CSF (test code = Protein CSF) 15- [facility]2014-10-15 19:36:00 Test Item Value Reference Range Interpretation Comments Glucose CSF (test code = Glucose CSF) 54 45-80 [facility]2014-10-15 19:36:00 Test Item Value Reference Range Interpretation Comments Clarity CSF (test code = Clear (05/15/14 2:36 Clarity CSF) PM) [facility]2014-10-15 19:36:00 Test Item Value Reference Range Interpretation Comments Supernat CSF (test Colorless (05/15/14 code = Supernat CSF) 2:36 PM) [facility]2014-10-15 19:36:00 Test Item Value Reference Range Interpretation Comments WBC CSF (test code = 0 See_Comment [Autom ated message] The WBC CSF) system which ge nerated this result transmit richard reference range : <=53. The reference range was not used to interpr et this result as robbie l/abnormal. [facility]2014-10-15 19:36:00 Test Item Value Reference Range Interpretation Comments Comment CSF (test Differential not code = Comment CSF) performed on WBC count of less than 5. [facility]2014-10-15 19:36:00 Test Item Value Reference Range Interpretation Comments RBC CSF (test code = 0 See_Comment [Autom ated message] The RBC CSF) system which ge nerated this result transmit richard reference range : <=03. The reference range was not used to interpr et this result as robbie l/abnormal. [facility]2014-10-15 19:36:00 Test Item Value Reference Range Interpretation Comments Tube Num CSF (test code = Tube Num CSF) [address] [facility]2014-10-15 19:36:00 Test Item Value Reference Range Interpretation Comments Color CSF (test code Colorless (05/15/14 2:36 = Color CSF) PM) [facility]2014-10-15 19:36:00 Test Item Value Reference Range Interpretation Comments Protein CSF (test code = Protein CSF) 15- [facility]2014-10-15 19:36:00 Test Item Value Reference Range Interpretation Comments Glucose CSF (test code = Glucose CSF) 54 45-80 [facility]2014-10-15 19:36:00 Test Item Value Reference Range Interpretation Comments Clarity CSF (test code = Clear (05/15/14 2:36 Clarity CSF) PM) [facility]2014-10-15 19:36:00 Test Item Value Reference Range Interpretation Comments Supernat CSF (test Colorless (05/15/14 code = Supernat CSF) 2:36 PM) [facility]2014-10-15 19:36:00 Test Item Value Reference Range Interpretation Comments WBC CSF (test code = 0 See_Comment [Autom ated message] The WBC CSF) system which ge nerated this result transmit richard reference range : <=53. The reference range was not used to interpr et this result as robbie l/abnormal. [facility]2014-10-15 19:36:00 Test Item Value Reference Range Interpretation Comments Comment CSF (test Differential not code = Comment CSF) performed on WBC count of less than 5. [facility]2014-10-15 19:36:00 Test Item Value Reference Range Interpretation Comments RBC CSF (test code = 0 See_Comment [Autom ated message] The RBC CSF) system which ge nerated this result transmit richard reference range : <=03. The reference range was not used to interpr et this result as robbie l/abnormal. [facility]2014-10-15 19:36:00 Test Item Value Reference Range Interpretation Comments Tube Num CSF (test code = Tube Num CSF) [address] [facility]2014-10-15 19:36:00 Test Item Value Reference Range Interpretation Comments Color CSF (test code Colorless (05/15/14 2:36 = Color CSF) PM) [facility]2014-10-15 19:36:00 Test Item Value Reference Range Interpretation Comments Protein CSF (test code = Protein CSF) 26 15-45 [facility]2014-10-15 19:36:00 Test Item Value Reference Range Interpretation Comments Glucose CSF (test code = Glucose CSF) 54 45-80 [facility]2014-10-15 19:36:00 Test Item Value Reference Range Interpretation Comments Clarity CSF (test code = Clear (05/15/14 2:36 Clarity CSF) PM) [facility]2014-10-15 19:36:00 Test Item Value Reference Range Interpretation Comments Supernat CSF (test Colorless (05/15/14 code = Supernat CSF) 2:36 PM) [facility] [employer]2014-10-15 19:36:00 Test Item Value Reference Range Interpretation Comments WBC CSF (test code = 0 See_Comment [Autom ated message] The WBC CSF) system which ge nerated this result transmit richard reference range : <=53. The reference range was not used to interpr et this result as robbie l/abnormal. [facility] AnalyticBBGOOR6165-68-04 19:36:00 Test Item Value Reference Range Interpretation Comments Comment CSF (test Differential not code = Comment CSF) performed on WBC count of less than 5. [facility] AnalyticVNMAHC3890-58-75 19:36:00 Test Item Value Reference Range Interpretation Comments RBC CSF (test code = 0 See_Comment [Autom ated message] The RBC CSF) system which ge nerated this result transmit richard reference range : <=03. The reference range was not used to interpr et this result as robbie l/abnormal. [facility] [employer] hospitalMassive AnalyticKGIIFJ8250-32-82 19:36:00 Test Item Value Reference Range Interpretation Comments Tube Num CSF (test code = Tube Num CSF) 1 1 [facility] SystemCaremergeSEFTAJ5841-91-17 19:36:00 Test Item Value Reference Range Interpretation Comments Color CSF (test code Colorless (05/15/14 2:36 = Color CSF) PM) [facility] SystemTrmcrsuYMPFZWRYLVFG8043-20-46 18:45:00 Test Item Value Reference Range Interpretation Comments AGAP (test code = AGAP) 9.8 10.0-20.0 [facility] SystemTavvgkqYWGGPCZMMLTZ4917-92-21 18:45:00 Test Item Value Reference Range Interpretation Comments B/C Ratio (test code = B/C Ratio) 16 6-25 [facility] SystemNizssznKMZEGPBTUIJC0325-63-42 18:45:00 Test Item Value Reference Range Interpretation Comments Globulin (test code = Globulin) 4.0 2.0-4.0 [facility] SystemHvroifiZUXMRAZNRITU8422-41-44 18:45:00 Test Item Value Reference Range Interpretation Comments A/G Ratio (test code = A/G Ratio) 1.1 0.7-1.6 [facility] SystemAemudknIROIGBAWAMJL1333-08-93 18:45:00 Test Item Value Reference Range Interpretation Comments eGFR (test code = eGFR) 121 [facility]RwaovpfADICIZVXQTPW0284-76-37 18:45:00 Test Item Value Reference Range Interpretation Comments Alk Phos (test code = Alk Phos) 67 39-136 [facility]JfjlmoiVALMICUTTFSC2568-07-09 18:45:00 Test Item Value Reference Range Interpretation Comments Bili Total (test code = Bili Total) 0.6 0.2-1.3 [facility] HospitalSlmvbecXRSUKUEQZGGM8614-72-84 18:45:00 Test Item Value Reference Range Interpretation Comments Calcium Lvl (test code = Calcium Lvl) 9.0 8.5-10.5 [facility] HospitalPszpvjzAVXUWTQNAJYG4588-27-84 18:45:00 Test Item Value Reference Range Interpretation Comments Potassium Lvl (test code = Potassium 3.8 3.5-5.1 Lvl) [facility] HospitalIuaivakEMCJGBSKEXWS6604-83-04 18:45:00 Test Item Value Reference Range Interpretation Comments CO2 (test code = CO2) 28 24-32 [facility] HospitalPmibvegXKVJRRQRXGIN6197-43-06 18:45:00 Test Item Value Reference Range Interpretation Comments Sodium Lvl (test code = Sodium Lvl) 140 135-145 [facility] HospitalDszslrbMKHPXAMCXDWR2100-15-61 18:45:00 Test Item Value Reference Range Interpretation Comments Chloride Lvl (test code = Chloride Lvl) 106 95-109 [facility] HospitalIieazqjIMCXLFQHFXWT1217-81-48 18:45:00 Test Item Value Reference Range Interpretation Comments AST (test code = AST) 12 <=37 [facility] HospitalXhmdxipDQOJPKLJLEHR4206-24-15 18:45:00 Test Item Value Reference Range Interpretation Comments Total Protein (test code = Total 8.3 6.4-8.4 Protein) [facility] HospitalTkcibqzGREICJKTDXHY9221-54-06 18:45:00 Test Item Value Reference Range Interpretation Comments Albumin Lvl (test code = Albumin Lvl) 4.3 3.5-5.0 [facility] HospitalHfiwkqcZCHBIAOYEIZR7301-02-51 18:45:00 Test Item Value Reference Range Interpretation Comments ALT (test code = ALT) 17 <=65 [facility] HospitalBajrxqmODBZZLIHCMEC1858-66-03 18:45:00 Test Item Value Reference Range Interpretation Comments Creatinine Lvl (test code = Creatinine 0.7 0.5-1.4 Lvl) [facility] HospitalJxafbuyGHNYQTXGLXJR6161-69-64 18:45:00 Test Item Value Reference Range Interpretation Comments BUN (test code = BUN) 11 7-22 [facility] HospitalDcknvumSKIYEMXRORFM9569-63-46 18:45:00 Test Item Value Reference Range Interpretation Comments Glucose Lvl (test code = Glucose Lvl) 87 70-99 [place] 40491014-10-06 18:45:00 Test Item Value Reference Range Interpretation Comments S Preg (test code = S Negative *NA*(05/06/14 Preg) 1:45 PM) [facility] HospitalEdrkrtbHLJOPDHTSU0415-84-15 18:45:00 Test Item Value Reference Range Interpretation Comments Basophils (test code = Basophils) 0.7 <=1.0 [facility] HospitalWthualtRBEXSPLYDM0116-98-31 18:45:00 Test Item Value Reference Range Interpretation Comments Eosinophils (test code = Eosinophils) 1.0 <=4.0 [facility] HospitalPxkncvtZSUNJVRVKV2410-35-88 18:45:00 Test Item Value Reference Range Interpretation Comments Eosinophils # (test code = Eosinophils 0.1 <=0.5 #) [facility] HospitalOrvlhasBEHNRKVNYH7683-29-33 18:45:00 Test Item Value Reference Range Interpretation Comments Monocytes # (test code = Monocytes #) 0.6 <=0.8 [facility] HospitalFkghrmkRLVHVWJEUN5746-49-13 18:45:00 Test Item Value Reference Range Interpretation Comments Monocytes (test code = Monocytes) 5.8 2.0-12.0 [facility] HospitalDvncxpwJVOALZJLYB7608-76-62 18:45:00 Test Item Value Reference Range Interpretation Comments Basophils # (test code = Basophils #) 0.1 <=0.2 [facility] HospitalDwninkoIOWLFXOVLL4003-72-22 18:45:00 Test Item Value Reference Range Interpretation Comments Lymphocytes (test code = Lymphocytes) 21.5 20.0-40.0 [facility] HospitalZlkslyuXMBVXYQNGA2682-83-17 18:45:00 Test Item Value Reference Range Interpretation Comments Lymphocytes # (test code = Lymphocytes 2.1 1.0-5.5 #) [facility] HospitalHszipfhWWNLNWSDHN2698-61-78 18:45:00 Test Item Value Reference Range Interpretation Comments Segs-Bands # (test code = Segs-Bands #) 7.0 1.5-8.1 [facility] HospitalOaulvsaJOXSXMADNO4945-17-33 18:45:00 Test Item Value Reference Range Interpretation Comments Segs (test code = Segs) 71.0 45.0-75.0 [facility]jtpzwoVSWRJLDFXT2227-60-29 18:45:00 Test Item Value Reference Range Interpretation Comments MCHC (test code = MCHC) 32.9 32.0-36.0 [facility] HealthTtjsjxiMODKRCVDMW3415-88-43 18:45:00 Test Item Value Reference Range Interpretation Comments MCH (test code = MCH) 29.2 pg 27.0-31.0 [facility] HealthVounfbfQDSDFHLRIC7113-61-40 18:45:00 Test Item Value Reference Range Interpretation Comments MCV (test code = MCV) 88.7 80.0-98.0 [facility] HealthNrezwfoBFKCKPEOMP7191-96-23 18:45:00 Test Item Value Reference Range Interpretation Comments MPV (test code = MPV) 8.4 7.4-10.4 [facility] HealthQdqnxesOJTKQQKCSE3094-34-98 18:45:00 Test Item Value Reference Range Interpretation Comments Platelet (test code = Platelet) 264 133-450 [facility] HealthExzjqtrPSWBHNSYCQ0920-55-53 18:45:00 Test Item Value Reference Range Interpretation Comments RDW (test code = RDW) 12.8 11.5-14.5 [facility]NvhlvtrYOVTAAMGJQ1464-03-99 18:45:00 Test Item Value Reference Range Interpretation Comments Hgb (test code = Hgb) 14.6 12.0-16.0 [facility] HealthDqoqfslPDJWMAVQVU4808-08-19 18:45:00 Test Item Value Reference Range Interpretation Comments Hct (test code = Hct) 44.3 36.0-48.0 [facility] HealthKqznblaBYURILXCMU2649-67-38 18:45:00 Test Item Value Reference Range Interpretation Comments WBC (test code = WBC) 9.9 3.7-10.4 [facility] HealthOqoxxsyOOGTACAGMF7540-35-38 18:45:00 Test Item Value Reference Range Interpretation Comments RBC (test code = RBC) 4.99 4.20-5.40 [facility]landSwbvyodFJCOGPVTNZ1906-86-67 18:45:00 Test Item Value Reference Range Interpretation Comments CDC HIV 4th GEN (test Negative (05/06/14 1:45 code = CDC HIV 4th PM) GEN) [facility] SystemLtkaxlhXVMJESRVQYAN1860-36-75 18:45:00 Test Item Value Reference Range Interpretation Comments AGAP (test code = AGAP) 9.8 10.0-20.0 [facility] HospitalTrufltlCJQYCCMBHRST6629-60-45 18:45:00 Test Item Value Reference Range Interpretation Comments B/C Ratio (test code = B/C Ratio) 16 6-25 [facility] HospitalBqzotldIRCWDVKCBBCQ0486-00-37 18:45:00 Test Item Value Reference Range Interpretation Comments Globulin (test code = Globulin) 4.0 2.0-4.0 [facility] HospitalOfslztmUDYNBCRWTYDV2805-07-67 18:45:00 Test Item Value Reference Range Interpretation Comments A/G Ratio (test code = A/G Ratio) 1.1 0.7-1.6 [facility] HospitalHdwlbusVQPFIIGCIXJM4549-96-81 18:45:00 Test Item Value Reference Range Interpretation Comments eGFR (test code = eGFR) 121 [facility] HospitalHsukfaiGSHXXHOQRUUH0885-46-02 18:45:00 Test Item Value Reference Range Interpretation Comments Alk Phos (test code = Alk Phos) 67 39-136 [facility] HospitalSqkrumcJJTFZPPYOCFD2471-14-91 18:45:00 Test Item Value Reference Range Interpretation Comments Bili Total (test code = Bili Total) 0.6 0.2-1.3 [facility] HospitalWskqlsdFHGHLIOKDXLR1196-94-41 18:45:00 Test Item Value Reference Range Interpretation Comments Calcium Lvl (test code = Calcium Lvl) 9.0 8.5-10.5 [facility] HospitalQzjnvdbXBRCGYINNHJS3257-35-30 18:45:00 Test Item Value Reference Range Interpretation Comments Potassium Lvl (test code = Potassium 3.8 3.5-5.1 Lvl) [facility] HospitalIruaiviWTNBAUTEKUQG3371-51-61 18:45:00 Test Item Value Reference Range Interpretation Comments CO2 (test code = CO2) 28 24-32 [facility] HospitalMhbgvpoROTADDGEDZNC0435-67-23 18:45:00 Test Item Value Reference Range Interpretation Comments Sodium Lvl (test code = Sodium Lvl) 140 135-145 [facility] HospitalMukxxptHTUFXGIUVRVU4926-48-12 18:45:00 Test Item Value Reference Range Interpretation Comments Chloride Lvl (test code = Chloride Lvl) 106 95-109 [facility] HospitalSsxvfseIDZDDSFLLYFX2022-65-78 18:45:00 Test Item Value Reference Range Interpretation Comments AST (test code = AST) 12 See_Comment [Auto mated message] The system which ge nerated this result transmit richard reference range : <=37. The reference range was not used to interpr et this result as robbie l/abnormal. [facility] HospitalPjhjpogFXDKKRQHVJTD8574-70-34 18:45:00 Test Item Value Reference Range Interpretation Comments Total Protein (test code = Total 8.3 6.4-8.4 Protein) [facility] HospitalXwateprOEFGYISEDUQY8548-73-32 18:45:00 Test Item Value Reference Range Interpretation Comments Albumin Lvl (test code = Albumin Lvl) 4.3 3.5-5.0 [facility] HospitalWjdowleITVMRDQWACNB7726-49-03 18:45:00 Test Item Value Reference Range Interpretation Comments ALT (test code = ALT) 17 See_Comment [Auto mated message] The system which ge nerated this result transmit richard reference range : <=65. The reference range was not used to interpr et this result as robbie l/abnormal. [facility] HospitalDghetbfNQHSYSDCWZOM3219-79-18 18:45:00 Test Item Value Reference Range Interpretation Comments Creatinine Lvl (test code = Creatinine 0.7 0.5-1.4 Lvl) [facility] HospitalSjbflmgSUCLQEWJIMUT9970-86-37 18:45:00 Test Item Value Reference Range Interpretation Comments BUN (test code = BUN) 11 7-22 [facility] HospitalRxnafkoZLSDCIPVRXEV8009-14-99 18:45:00 Test Item Value Reference Range Interpretation Comments Glucose Lvl (test code = Glucose Lvl) 87 70-99 [place] [id number] 18:45:00 Test Item Value Reference Range Interpretation Comments S Preg (test code = S Negative *NA*(05/06/14 Preg) 1:45 PM) [facility] HospitalNuiloonOOJKFPEMTS0529-45-56 18:45:00 Test Item Value Reference Range Interpretation Comments Basophils (test code = 0.7 See_Comment [Aut omated message] The Basophils) system which ge nerated this result tra nsmitted reference range : <=1.0. The reference r joan was not used to int erpret this result as normal/abnormal . [facility] HospitalDtkojjyBBXGEUDHOT6281-61-70 18:45:00 Test Item Value Reference Range Interpretation Comments Eosinophils (test code = 1.0 See_Comment [A utomated message] The Eosinophils) system which ge nerated this result tra nsmitted reference range : <=4.0. The reference r joan was not used to int erpret this result as normal/abnormal . [facility] HospitalDsfoedpYTEONKGOPV3547-25-81 18:45:00 Test Item Value Reference Range Interpretation Comments Eosinophils # (test code 0.1 See_Comment [A utomated message] The = Eosinophils #) system whic h generated this result tra nsmitted reference range : <=0.5. The reference r joan was not used to int erpret this result as normal/abnormal . [facility] HospitalYjtezzyYICWSAABDB2931-11-82 18:45:00 Test Item Value Reference Range Interpretation Comments Monocytes # (test code 0.6 See_Comment [Aut omated message] The = Monocytes #) system which generated this result tra nsmitted reference range : <=0.8. The reference r joan was not used to int erpret this result as normal/abnormal . [facility] HospitalZcvjoyfCSVSAJTKTF6855-17-78 18:45:00 Test Item Value Reference Range Interpretation Comments Monocytes (test code = Monocytes) 5.8 2.0-12.0 [facility] HospitalMkscureZIESPCNVPX5676-16-33 18:45:00 Test Item Value Reference Range Interpretation Comments Basophils # (test code 0.1 See_Comment [Aut omated message] The = Basophils #) system which generated this result tra nsmitted reference range : <=0.2. The reference r joan was not used to int erpret this result as normal/abnormal . [facility] HospitalRamocviQPWIZFBLFJ5224-87-54 18:45:00 Test Item Value Reference Range Interpretation Comments Lymphocytes (test code = Lymphocytes) 21.5 20.0-40.0 [facility] HospitalMquarruNYXWOCKGAB9498-43-29 18:45:00 Test Item Value Reference Range Interpretation Comments Lymphocytes # (test code = Lymphocytes 2.1 1.0-5.5 #) [facility] HospitalYysxdsaUJKKCCWBFJ4058-37-49 18:45:00 Test Item Value Reference Range Interpretation Comments Segs-Bands # (test code = Segs-Bands #) 7.0 1.5-8.1 [facility] HospitalUimsjxvBWMCPNRBLC0831-63-37 18:45:00 Test Item Value Reference Range Interpretation Comments Segs (test code = Segs) 71.0 45.0-75.0 [facility] HospitalFnmgemqIQCEHOHBDW3017-69-64 18:45:00 Test Item Value Reference Range Interpretation Comments MCHC (test code = MCHC) 32.9 32.0-36.0 [facility] HospitalRpeqqheASCBCWSMRK7338-40-45 18:45:00 Test Item Value Reference Range Interpretation Comments MCH (test code = MCH) 29.2 pg 27.0-31.0 [facility] HospitalTehcqyuQCNCKFPSWN8080-20-38 18:45:00 Test Item Value Reference Range Interpretation Comments MCV (test code = MCV) 88.7 80.0-98.0 [facility] HospitalQxdsdogNTKQGXKWLA5087-83-18 18:45:00 Test Item Value Reference Range Interpretation Comments MPV (test code = MPV) 8.4 7.4-10.4 [facility] HospitalRwumffrOADCXAUXVY3640-73-34 18:45:00 Test Item Value Reference Range Interpretation Comments Platelet (test code = Platelet) 264 133-450 [facility]IcgnjifHJRALOJFBA6234-35-33 18:45:00 Test Item Value Reference Range Interpretation Comments RDW (test code = RDW) 12.8 11.5-14.5 [facility]ZjdwneaSAIIGLDPOH4978-70-73 18:45:00 Test Item Value Reference Range Interpretation Comments Hgb (test code = Hgb) 14.6 12.0-16.0 [facility] HospitalNunizznREBBCSZTOT8745-38-44 18:45:00 Test Item Value Reference Range Interpretation Comments Hct (test code = Hct) 44.3 36.0-48.0 [facility] HospitalYtwjgohCWZKSITQPM6200-04-47 18:45:00 Test Item Value Reference Range Interpretation Comments WBC (test code = WBC) 9.9 3.7-10.4 [facility] HospitalQuhmygsGWOXTVVXBP9627-45-88 18:45:00 Test Item Value Reference Range Interpretation Comments RBC (test code = RBC) 4.99 4.20-5.40 [facility]InovtrcECHPDHFOTA2212-81-24 18:45:00 Test Item Value Reference Range Interpretation Comments CDC HIV 4th GEN (test Negative (05/06/14 1:45 code = CDC HIV 4th PM) GEN) [facility]RsimrsbDARWSDXABGZW4495-08-57 18:45:00 Test Item Value Reference Range Interpretation Comments AGAP (test code = AGAP) 9.8 10.0-20.0 [facility]CftaizyZNTLLPZLAOJH8676-37-24 18:45:00 Test Item Value Reference Range Interpretation Comments B/C Ratio (test code = B/C Ratio) 16 6-25 [facility] HospitalLtxkckeZHTMDZTMVLZJ9454-43-11 18:45:00 Test Item Value Reference Range Interpretation Comments Globulin (test code = Globulin) 4.0 2.0-4.0 [facility] HospitalEnvficdKXACCZDHUYDE9716-35-01 18:45:00 Test Item Value Reference Range Interpretation Comments A/G Ratio (test code = A/G Ratio) 1.1 0.7-1.6 [facility] HospitalMuuvtwpEELIIQEVHNOS5974-48-39 18:45:00 Test Item Value Reference Range Interpretation Comments eGFR (test code = eGFR) 121 [facility] HospitalWqtdmhbFNZDQZZVYUOX4327-80-90 18:45:00 Test Item Value Reference Range Interpretation Comments Alk Phos (test code = Alk Phos) 67 39-136 [facility] HospitalOsaavzqZJDAZEQFFYLU2516-64-10 18:45:00 Test Item Value Reference Range Interpretation Comments Bili Total (test code = Bili Total) 0.6 0.2-1.3 [facility] HospitalFcavujxTHWQAQRSFUXE0517-97-75 18:45:00 Test Item Value Reference Range Interpretation Comments Calcium Lvl (test code = Calcium Lvl) 9.0 8.5-10.5 [facility] HospitalYnzqkqiGCCMMNIDSHAW1111-40-86 18:45:00 Test Item Value Reference Range Interpretation Comments Potassium Lvl (test code = Potassium 3.8 3.5-5.1 Lvl) [facility] HospitalTfklrtpFNZCRMZMNGNL5217-37-78 18:45:00 Test Item Value Reference Range Interpretation Comments CO2 (test code = CO2) 28 24-32 [facility] HospitalAyylfmtQRTDBHKHNYHE7901-41-47 18:45:00 Test Item Value Reference Range Interpretation Comments Sodium Lvl (test code = Sodium Lvl) 140 135-145 [facility] HospitalPsztgboHHMDTPPGJNHP8219-70-08 18:45:00 Test Item Value Reference Range Interpretation Comments Chloride Lvl (test code = Chloride Lvl) 106 95-109 [facility] HospitalCgjlhofHBAQHNODAPPI6974-10-17 18:45:00 Test Item Value Reference Range Interpretation Comments AST (test code = AST) 12 See_Comment [Auto mated message] The system which ge nerated this result transmit richard reference range : <=37. The reference range was not used to interpr et this result as robbie l/abnormal. [facility] HospitalUdrgawkUQLADDHWCELX5217-27-89 18:45:00 Test Item Value Reference Range Interpretation Comments Total Protein (test code = Total 8.3 6.4-8.4 Protein) [facility] HospitalUgpyhndMACJFJFFZNMK6252-55-57 18:45:00 Test Item Value Reference Range Interpretation Comments Albumin Lvl (test code = Albumin Lvl) 4.3 3.5-5.0 [place] [address]-10-06 18:45:00 Test Item Value Reference Range Interpretation Comments ALT (test code = ALT) 17 See_Comment [Auto mated message] The system which ge nerated this result transmit richard reference range : <=65. The reference range was not used to interpr et this result as robbie l/abnormal. [place] [address]-10-06 18:45:00 Test Item Value Reference Range Interpretation Comments Creatinine Lvl (test code = Creatinine 0.7 0.5-1.4 Lvl) [facility] HospitalLbypmvlFJVRIPVRELPD6589-38-85 18:45:00 Test Item Value Reference Range Interpretation Comments BUN (test code = BUN) 11 7-22 [place] [address]-10-06 18:45:00 Test Item Value Reference Range Interpretation Comments Glucose Lvl (test code = Glucose Lvl) 87 70-99 [place] 40491014-10-06 18:45:00 Test Item Value Reference Range Interpretation Comments S Preg (test code = S Negative *NA*(05/06/14 Preg) 1:45 PM) [facility] HospitalWhxhhiqFJANAGBUKS2941-58-51 18:45:00 Test Item Value Reference Range Interpretation Comments Basophils (test code = 0.7 See_Comment [Aut omated message] The Basophils) system which ge nerated this result tra nsmitted reference range : <=1.0. The reference r joan was not used to int erpret this result as normal/abnormal . [facility] HospitalXaxdxgkKHEBMECHZY8836-25-10 18:45:00 Test Item Value Reference Range Interpretation Comments Eosinophils (test code = 1.0 See_Comment [A utomated message] The Eosinophils) system which ge nerated this result tra nsmitted reference range : <=4.0. The reference r joan was not used to int erpret this result as normal/abnormal . [facility] HospitalSemwjruUNFHVMXHWS8173-52-50 18:45:00 Test Item Value Reference Range Interpretation Comments Eosinophils # (test code 0.1 See_Comment [A utomated message] The = Eosinophils #) system whic h generated this result tra nsmitted reference range : <=0.5. The reference r joan was not used to int erpret this result as normal/abnormal . [facility] HospitalTxuzytxDHZCANCGVO4313-76-21 18:45:00 Test Item Value Reference Range Interpretation Comments Monocytes # (test code 0.6 See_Comment [Aut omated message] The = Monocytes #) system which generated this result tra nsmitted reference range : <=0.8. The reference r joan was not used to int erpret this result as normal/abnormal . [facility] HospitalFiygiokMJBZJVSGXN0195-59-68 18:45:00 Test Item Value Reference Range Interpretation Comments Monocytes (test code = Monocytes) 5.8 2.0-12.0 [facility] HospitalAqrikpuSBBDZCITGP9618-53-19 18:45:00 Test Item Value Reference Range Interpretation Comments Basophils # (test code 0.1 See_Comment [Aut omated message] The = Basophils #) system which generated this result tra nsmitted reference range : <=0.2. The reference r joan was not used to int erpret this result as normal/abnormal . [facility] HospitalFswpuyuRBBWPPNZIX6127-82-18 18:45:00 Test Item Value Reference Range Interpretation Comments Lymphocytes (test code = Lymphocytes) 21.5 20.0-40.0 [facility] HospitalVcuhlagJGJOAWDOVR6309-46-61 18:45:00 Test Item Value Reference Range Interpretation Comments Lymphocytes # (test code = Lymphocytes 2.1 1.0-5.5 #) [facility] HospitalEuauxznHFMOQEHGBT5723-97-89 18:45:00 Test Item Value Reference Range Interpretation Comments Segs-Bands # (test code = Segs-Bands #) 7.0 1.5-8.1 [facility] HospitalFxbyklgDNUGQDMJUP8417-19-57 18:45:00 Test Item Value Reference Range Interpretation Comments Segs (test code = Segs) 71.0 45.0-75.0 [facility] HospitalTqszlndUOIVUEIATL4043-58-46 18:45:00 Test Item Value Reference Range Interpretation Comments MCHC (test code = MCHC) 32.9 32.0-36.0 [facility] HospitalLwxudkoCOXIUQLFIP5465-05-30 18:45:00 Test Item Value Reference Range Interpretation Comments MCH (test code = MCH) 29.2 pg 27.0-31.0 [facility] HospitalJpdrdvdWGNKOJOFTS6852-09-69 18:45:00 Test Item Value Reference Range Interpretation Comments MCV (test code = MCV) 88.7 80.0-98.0 [facility] HospitalMblcizzZAKJAYMNHK3989-73-71 18:45:00 Test Item Value Reference Range Interpretation Comments MPV (test code = MPV) 8.4 7.4-10.4 [facility] HospitalBwtooudYBSMXNBZAZ8393-49-27 18:45:00 Test Item Value Reference Range Interpretation Comments Platelet (test code = Platelet) 264 133-450 [facility] HospitalCwqiofyVDPYAVTOYB5337-44-00 18:45:00 Test Item Value Reference Range Interpretation Comments RDW (test code = RDW) 12.8 11.5-14.5 [facility] HospitalLtjidtkORSGNISPNY7429-90-66 18:45:00 Test Item Value Reference Range Interpretation Comments Hgb (test code = Hgb) 14.6 12.0-16.0 [facility] HospitalCqvksvrXMNMQJRXOR8462-23-32 18:45:00 Test Item Value Reference Range Interpretation Comments Hct (test code = Hct) 44.3 36.0-48.0 [facility] HospitalMzxionjASHAQLZAIN9059-12-18 18:45:00 Test Item Value Reference Range Interpretation Comments WBC (test code = WBC) 9.9 3.7-10.4 [facility] HospitalHomrytbGITOPMVFWP2055-44-26 18:45:00 Test Item Value Reference Range Interpretation Comments RBC (test code = RBC) 4.99 4.20-5.40 [facility]FnyftrsWSTJHIAZEE2180-75-71 18:45:00 Test Item Value Reference Range Interpretation Comments CDC HIV 4th GEN (test Negative (05/06/14 1:45 code = CDC HIV 4th PM) GEN) [facility] HospitalFusquavJCMPUYQKCJFM8768-14-28 18:45:00 Test Item Value Reference Range Interpretation Comments AGAP (test code = AGAP) 9.8 10.0-20.0 [facility] HospitalPygagbuUIXTHYZYHJIS6918-95-68 18:45:00 Test Item Value Reference Range Interpretation Comments B/C Ratio (test code = B/C Ratio) 16 6-25 [facility] HospitalMhhdqddHYLHGDNFWOKP1166-56-64 18:45:00 Test Item Value Reference Range Interpretation Comments Globulin (test code = Globulin) 4.0 2.0-4.0 [facility] HospitalQbjseovNFXDHZAOHGQJ7645-86-27 18:45:00 Test Item Value Reference Range Interpretation Comments A/G Ratio (test code = A/G Ratio) 1.1 0.7-1.6 [facility] HospitalZndcpqkISQWYEQGFCFL0718-18-40 18:45:00 Test Item Value Reference Range Interpretation Comments eGFR (test code = eGFR) 121 [facility] HospitalQukikigPPBBHLVIZUSP9509-00-63 18:45:00 Test Item Value Reference Range Interpretation Comments Alk Phos (test code = Alk Phos) 67 39-136 [facility] HospitalZpitqjiGGYKBWCISPMU4493-94-60 18:45:00 Test Item Value Reference Range Interpretation Comments Bili Total (test code = Bili Total) 0.6 0.2-1.3 [facility] HospitalLlvxnixXLKTWCHCVGZR3156-51-60 18:45:00 Test Item Value Reference Range Interpretation Comments Calcium Lvl (test code = Calcium Lvl) 9.0 8.5-10.5 [facility] HospitalVzkibwfGDQLGTMKHMSB6925-23-00 18:45:00 Test Item Value Reference Range Interpretation Comments Potassium Lvl (test code = Potassium 3.8 3.5-5.1 Lvl) [facility] HospitalPehefvoNRDJBBZFUPMD4830-27-23 18:45:00 Test Item Value Reference Range Interpretation Comments CO2 (test code = CO2) 28 24-32 [facility] HospitalOofgoinAJMEYQPJPRWM0632-87-45 18:45:00 Test Item Value Reference Range Interpretation Comments Sodium Lvl (test code = Sodium Lvl) 140 135-145 [facility] HospitalZfpbjyuVRPIWQVXZVOC0983-52-85 18:45:00 Test Item Value Reference Range Interpretation Comments Chloride Lvl (test code = Chloride Lvl) 106 95-109 [facility] HospitalTumowhkWXMVWXHLZSKW4107-89-01 18:45:00 Test Item Value Reference Range Interpretation Comments AST (test code = AST) 12 See_Comment [Auto mated message] The system which ge nerated this result transmit richard reference range : <=37. The reference range was not used to interpr et this result as robbie l/abnormal. [facility] HospitalJqhtnmoOYFKQKUUAWQC5089-45-13 18:45:00 Test Item Value Reference Range Interpretation Comments Total Protein (test code = Total 8.3 6.4-8.4 Protein) [facility] HospitalCxhytkjZWALZVXLOYWZ6994-81-51 18:45:00 Test Item Value Reference Range Interpretation Comments Albumin Lvl (test code = Albumin Lvl) 4.3 3.5-5.0 [facility] HospitalEwhkoxyVAJYLHXKADQU2733-15-14 18:45:00 Test Item Value Reference Range Interpretation Comments ALT (test code = ALT) 17 See_Comment [Auto mated message] The system which ge nerated this result transmit richard reference range : <=65. The reference range was not used to interpr et this result as robbie l/abnormal. [facility] HospitalWokdqlxTUHCVXZHGPAY2747-63-93 18:45:00 Test Item Value Reference Range Interpretation Comments Creatinine Lvl (test code = Creatinine 0.7 0.5-1.4 Lvl) [facility] HospitalPzcqyfyKDKVHHDGICZN2476-98-65 18:45:00 Test Item Value Reference Range Interpretation Comments BUN (test code = BUN) 11 7-22 [facility] HospitalFxlqubrQGBFGFNJWAQC9454-53-92 18:45:00 Test Item Value Reference Range Interpretation Comments Glucose Lvl (test code = Glucose Lvl) 87 70-99 [place] 40491014-10-06 18:45:00 Test Item Value Reference Range Interpretation Comments S Preg (test code = S Negative *NA*(05/06/14 Preg) 1:45 PM) [facility] HospitalKqmndonXKSWNKEAJJ6504-35-73 18:45:00 Test Item Value Reference Range Interpretation Comments Basophils (test code = 0.7 See_Comment [Aut omated message] The Basophils) system which ge nerated this result tra nsmitted reference range : <=1.0. The reference r joan was not used to int erpret this result as normal/abnormal . [facility] HospitalBgaxmpgHDUEIIAWGA5271-99-28 18:45:00 Test Item Value Reference Range Interpretation Comments Eosinophils (test code = 1.0 See_Comment [A utomated message] The Eosinophils) system which ge nerated this result tra nsmitted reference range : <=4.0. The reference r joan was not used to int erpret this result as normal/abnormal . [facility] HospitalIleaslmWUPSYLKFKT7633-30-57 18:45:00 Test Item Value Reference Range Interpretation Comments Eosinophils # (test code 0.1 See_Comment [A utomated message] The = Eosinophils #) system whic h generated this result tra nsmitted reference range : <=0.5. The reference r joan was not used to int erpret this result as normal/abnormal . [facility] HospitalNyhyvslJPVWIUPLRO0645-59-74 18:45:00 Test Item Value Reference Range Interpretation Comments Monocytes # (test code 0.6 See_Comment [Aut omated message] The = Monocytes #) system which generated this result tra nsmitted reference range : <=0.8. The reference r joan was not used to int erpret this result as normal/abnormal . [facility] HospitalWebwuxhBKVBOXKIIY8850-42-79 18:45:00 Test Item Value Reference Range Interpretation Comments Monocytes (test code = Monocytes) 5.8 2.0-12.0 [facility] HospitalFybkkqsGDUYNDIIUJ3839-25-17 18:45:00 Test Item Value Reference Range Interpretation Comments Basophils # (test code 0.1 See_Comment [Aut omated message] The = Basophils #) system which generated this result tra nsmitted reference range : <=0.2. The reference r joan was not used to int erpret this result as normal/abnormal . [facility] HospitalXhtxihpJDUMJGHZSO3466-35-81 18:45:00 Test Item Value Reference Range Interpretation Comments Lymphocytes (test code = Lymphocytes) 21.5 20.0-40.0 [facility] HospitalBpjxaxgROEHKCLTCG7741-11-39 18:45:00 Test Item Value Reference Range Interpretation Comments Lymphocytes # (test code = Lymphocytes 2.1 1.0-5.5 #) [facility] HospitalOljyjnaTVOXMZWNZX3985-13-77 18:45:00 Test Item Value Reference Range Interpretation Comments Segs-Bands # (test code = Segs-Bands #) 7.0 1.5-8.1 [facility] HospitalPgpetdgGKTVEMVYTE9589-72-96 18:45:00 Test Item Value Reference Range Interpretation Comments Segs (test code = Segs) 71.0 45.0-75.0 [facility] HospitalNbfjpobTMUKJLIBFB1877-80-95 18:45:00 Test Item Value Reference Range Interpretation Comments MCHC (test code = MCHC) 32.9 32.0-36.0 [facility] HospitalOofakkjDHROKEKDFJ8517-63-50 18:45:00 Test Item Value Reference Range Interpretation Comments MCH (test code = MCH) 29.2 pg 27.0-31.0 [facility] HospitalJxbvdqvWXASGAIIYY4261-27-90 18:45:00 Test Item Value Reference Range Interpretation Comments MCV (test code = MCV) 88.7 80.0-98.0 [facility] HospitalVnngtngRPADUYMFZQ6634-55-74 18:45:00 Test Item Value Reference Range Interpretation Comments MPV (test code = MPV) 8.4 7.4-10.4 [facility] HospitalGgvrkcvZPXDZEYYPG8153-72-82 18:45:00 Test Item Value Reference Range Interpretation Comments Platelet (test code = Platelet) 264 133-450 [facility] HospitalRuljnksCEMXFIJTZN8689-26-02 18:45:00 Test Item Value Reference Range Interpretation Comments RDW (test code = RDW) 12.8 11.5-14.5 [facility] HospitalPtkcxteXMGLKSPBJM4629-10-78 18:45:00 Test Item Value Reference Range Interpretation Comments Hgb (test code = Hgb) 14.6 12.0-16.0 [facility] HospitalZitxtenLUGVORMKOT3623-52-22 18:45:00 Test Item Value Reference Range Interpretation Comments Hct (test code = Hct) 44.3 36.0-48.0 [facility] HospitalCnvvrjiUOZDGXKIKL1724-53-90 18:45:00 Test Item Value Reference Range Interpretation Comments WBC (test code = WBC) 9.9 3.7-10.4 [facility] HospitalXncahimCOBNGIASOL4775-16-21 18:45:00 Test Item Value Reference Range Interpretation Comments RBC (test code = RBC) 4.99 4.20-5.40 [facility]NshgdlfFEURRZVRWL4560-57-57 18:45:00 Test Item Value Reference Range Interpretation Comments CDC HIV 4th GEN (test Negative (05/06/14 1:45 code = CDC HIV 4th PM) GEN) [facility]2013-11-05 14:57:00 Test Item Value Reference Range Interpretation Comments Protein CSF (test code = Protein CSF) 26 15-[address] [facility]2013-11-05 14:57:00 Test Item Value Reference Range Interpretation Comments Glucose CSF (test code = Glucose CSF) 65 45-[address] [facility]2013-11-05 14:57:00 Test Item Value Reference Range Interpretation Comments Monocyte CSF (test code = Monocyte CSF) 7 15-[address] [facility]2013-11-05 14:57:00 Test Item Value Reference Range Interpretation Comments Segs CSF (test code = Segs CSF) [address] [facility]2013-11-05 14:57:00 Test Item Value Reference Range Interpretation Comments Lymph CSF (test code = Lymph CSF) 92 40-[address] [facility]2013-11-05 14:57:00 Test Item Value Reference Range Interpretation Comments RBC CSF (test code = RBC CSF) [address] [facility]2013-11-05 14:57:00 Test Item Value Reference Range Interpretation Comments Clarity CSF (test code = Clear (06/05/2013 N Clarity CSF) 08:57:00) [facility]2013-11-05 14:57:00 Test Item Value Reference Range Interpretation Comments WBC CSF (test code = WBC CSF) [address] [facility]2013-11-05 14:57:00 Test Item Value Reference Range Interpretation Comments Supernat CSF (test Colorless (06/05/2013 N code = Supernat CSF) 08:57:00) [facility]2013-11-05 14:57:00 Test Item Value Reference Range Interpretation Comments Tube Num CSF (test code = Tube Num CSF) [address] [facility]2013-11-05 14:57:00 Test Item Value Reference Range Interpretation Comments Color CSF (test code Colorless (06/05/2013 N = Color CSF) 08:57:00) [facility]2013-11-05 14:57:00 Test Item Value Reference Range Interpretation Comments Protein CSF (test code = Protein CSF) 26 15-[address] [facility]2013-11-05 14:57:00 Test Item Value Reference Range Interpretation Comments Glucose CSF (test code = Glucose CSF) 65 45-[address] [facility]2013-11-05 14:57:00 Test Item Value Reference Range Interpretation Comments Monocyte CSF (test code = Monocyte CSF) 7 15-[address] [facility]2013-11-05 14:57:00 Test Item Value Reference Range Interpretation Comments Segs CSF (test code = 1 See_Comment N [Auto mated message] The Segs CSF) system which ge nerated this result transmit richard reference range : <=6. The reference range was not used to interpr et this result as robbie l/abnormal. [facility] AnalyticHJLHSU4434-91-19 14:57:00 Test Item Value Reference Range Interpretation Comments Lymph CSF (test code = Lymph CSF) 92 40-80 H [facility] IAAGWG1623-44-06 14:57:00 Test Item Value Reference Range Interpretation Comments RBC CSF (test code = 47 See_Comment H [Autom ated message] The RBC CSF) system which ge nerated this result transmit richard reference range : <=0. The reference range was not used to interpr et this result as robbie l/abnormal. [facility] AnalyticATSFTZ9891-03-69 14:57:00 Test Item Value Reference Range Interpretation Comments Clarity CSF (test code = Clear (06/05/2013 N Clarity CSF) 08:57:00) [facility] QBKNHK1048-47-45 14:57:00 Test Item Value Reference Range Interpretation Comments WBC CSF (test code = 14 See_Comment H [Autom ated message] The WBC CSF) system which ge nerated this result transmit richard reference range : <=5. The reference range was not used to interpr et this result as robbie l/abnormal. [facility] AnalyticFXOTOK8044-57-66 14:57:00 Test Item Value Reference Range Interpretation Comments Supernat CSF (test Colorless (06/05/2013 N code = Supernat CSF) 08:57:00) [facility] ROHDSR6083-80-46 14:57:00 Test Item Value Reference Range Interpretation Comments Tube Num CSF (test code = Tube Num CSF) 3 1 [facility] AnalyticUQEJPL3814-46-49 14:57:00 Test Item Value Reference Range Interpretation Comments Color CSF (test code Colorless (06/05/2013 N = Color CSF) 08:57:00) [facility] AnalyticNOOAMC6644-20-77 14:57:00 Test Item Value Reference Range Interpretation Comments Protein CSF (test code = Protein CSF) 26 15-45 N [facility] AnalyticOBQTNX3425-69-05 14:57:00 Test Item Value Reference Range Interpretation Comments Glucose CSF (test code = Glucose CSF) 65 45-80 N [facility] AnalyticCIPNIQ3357-77-04 14:57:00 Test Item Value Reference Range Interpretation Comments Monocyte CSF (test code = Monocyte CSF) 7 15-45 L [facility] AnalyticLOPNDY2527-72-30 14:57:00 Test Item Value Reference Range Interpretation Comments Segs CSF (test code = 1 See_Comment N [Auto mated message] The Segs CSF) system which ge nerated this result transmit richard reference range : <=6. The reference range was not used to interpr et this result as robbie l/abnormal. [facility] OEYSUQ4158-63-13 14:57:00 Test Item Value Reference Range Interpretation Comments Lymph CSF (test code = Lymph CSF) 92 40-80 H [facility] HPNPJW6166-25-35 14:57:00 Test Item Value Reference Range Interpretation Comments RBC CSF (test code = 47 See_Comment H [Autom ated message] The RBC CSF) system which ge nerated this result transmit richard reference range : <=0. The reference range was not used to interpr et this result as robbie l/abnormal. [facility] QTLXFR0648-28-79 14:57:00 Test Item Value Reference Range Interpretation Comments Clarity CSF (test code = Clear (06/05/2013 N Clarity CSF) 08:57:00) [facility] NAIGLH7098-32-06 14:57:00 Test Item Value Reference Range Interpretation Comments WBC CSF (test code = 14 See_Comment H [Autom ated message] The WBC CSF) system which ge nerated this result transmit richard reference range : <=5. The reference range was not used to interpr et this result as robbie l/abnormal. [facility] DAFVLD2415-72-15 14:57:00 Test Item Value Reference Range Interpretation Comments Supernat CSF (test Colorless (06/05/2013 N code = Supernat CSF) 08:57:00) [facility]2013-11-05 14:57:00 Test Item Value Reference Range Interpretation Comments Tube Num CSF (test code = Tube Num CSF) 3 1 [facility] AnalyticVBDNQU8616-94-60 14:57:00 Test Item Value Reference Range Interpretation Comments Color CSF (test code Colorless (06/05/2013 N = Color CSF) 08:57:00) [facility] IKSREV6851-73-30 14:57:00 Test Item Value Reference Range Interpretation Comments Protein CSF (test code = Protein CSF) 26 15-45 N [facility] AnalyticVCEXXS6342-02-90 14:57:00 Test Item Value Reference Range Interpretation Comments Glucose CSF (test code = Glucose CSF) 65 45-80 N [facility] AnalyticFMAJQV2366-83-66 14:57:00 Test Item Value Reference Range Interpretation Comments Monocyte CSF (test code = Monocyte CSF) 7 15-[address] [facility]2013-11-05 14:57:00 Test Item Value Reference Range Interpretation Comments Segs CSF (test code = 1 See_Comment N [Auto mated message] The Segs CSF) system which ge nerated this result transmit richard reference range : <=6. The reference range was not used to interpr et this result as robbie l/abnormal. [facility] [id number] 14:57:00 Test Item Value Reference Range Interpretation Comments Lymph CSF (test code = Lymph CSF) 92 40-80 H [facility] [id number] 14:57:00 Test Item Value Reference Range Interpretation Comments RBC CSF (test code = 47 See_Comment H [Autom ated message] The RBC CSF) system which ge nerated this result transmit richard reference range : <=0. The reference range was not used to interpr et this result as robbie l/abnormal. [facility] [id number] 14:57:00 Test Item Value Reference Range Interpretation Comments Clarity CSF (test code = Clear (06/05/2013 N Clarity CSF) 08:57:00) [facility] [id number] 14:57:00 Test Item Value Reference Range Interpretation Comments WBC CSF (test code = 14 See_Comment H [Autom ated message] The WBC CSF) system which ge nerated this result transmit richard reference range : <=5. The reference range was not used to interpr et this result as robbie l/abnormal. [facility] [id number] 14:57:00 Test Item Value Reference Range Interpretation Comments Supernat CSF (test Colorless (06/05/2013 N code = Supernat CSF) 08:57:00) [facility] [id number] 14:57:00 Test Item Value Reference Range Interpretation Comments Tube Num CSF (test code = Tube Num CSF) 3 1 [facility] [id number] 14:57:00 Test Item Value Reference Range Interpretation Comments Color CSF (test code Colorless (06/05/2013 N = Color CSF) 08:57:00) [facility]2013-10-31 23:25:00 Test Item Value Reference Range Interpretation Comments Protein CSF (test code = Protein CSF) 34 15-[address] [facility]2013-10-31 23:25:00 Test Item Value Reference Range Interpretation Comments Lymph CSF (test code = Lymph CSF) 93 40-[address] [facility]2013-10-31 23:25:00 Test Item Value Reference Range Interpretation Comments Monocyte CSF (test code = Monocyte CSF) 6 15-[address] [facility]2013-10-31 23:25:00 Test Item Value Reference Range Interpretation Comments Eos CSF (test code = Eos CSF) 1 [facility]2013-10-31 23:25:00 Test Item Value Reference Range Interpretation Comments Segs CSF (test code = Segs CSF) [address] [facility]2013-10-31 23:25:00 Test Item Value Reference Range Interpretation Comments RBC CSF (test code = RBC CSF) [address] <=[address] [facility]2013-10-31 23:25:00 Test Item Value Reference Range Interpretation Comments Color CSF (test code Colorless (05/31/2013 N = Color CSF) 18:25:00) [facility]2013-10-31 23:25:00 Test Item Value Reference Range Interpretation Comments Tube Num CSF (test code = Tube Num CSF) [address] [facility]2013-10-31 23:25:00 Test Item Value Reference Range Interpretation Comments Supernat CSF (test Colorless (05/31/2013 N code = Supernat CSF) 18:25:00) [facility]2013-10-31 23:25:00 Test Item Value Reference Range Interpretation Comments Clarity CSF (test code = Clear (05/31/2013 N Clarity CSF) 18:25:00) [facility]2013-10-31 23:25:00 Test Item Value Reference Range Interpretation Comments WBC CSF (test code = WBC CSF) [address] [facility]2013-10-31 23:25:00 Test Item Value Reference Range Interpretation Comments Glucose CSF (test code = Glucose CSF) 51 45-[address] [facility]2013-10-31 23:25:00 Test Item Value Reference Range Interpretation Comments Segs CSF (test code = Segs CSF) 0 <=6 N [facility] [id number] 23:25:00 Test Item Value Reference Range Interpretation Comments Monocyte CSF (test code = Monocyte CSF) 2 15-45 L [facility] [id number] 23:25:00 Test Item Value Reference Range Interpretation Comments Lymph CSF (test code = Lymph CSF) 98 40-80 H [facility] [id number] 23:25:00 Test Item Value Reference Range Interpretation Comments Tube Num CSF (test code = Tube Num CSF) 1 1 [facility] [id number] 23:25:00 Test Item Value Reference Range Interpretation Comments Supernat CSF (test Colorless (05/31/2013 N code = Supernat CSF) 18:25:00) [facility] [id number] 23:25:00 Test Item Value Reference Range Interpretation Comments Clarity CSF (test code = Clear (05/31/2013 N Clarity CSF) 18:25:00) [facility] [id number] 23:25:00 Test Item Value Reference Range Interpretation Comments Color CSF (test code Colorless (05/31/2013 N = Color CSF) 18:25:00) [facility] [id number] 23:25:00 Test Item Value Reference Range Interpretation Comments RBC CSF (test code = RBC CSF) 21 <=0 H [facility] [id number] 23:25:00 Test Item Value Reference Range Interpretation Comments WBC CSF (test code = WBC CSF) 17 <=5 H [facility] [id number] 23:25:00 Test Item Value Reference Range Interpretation Comments Protein CSF (test code = Protein CSF) 34 15-45 N [facility] [id number] 23:25:00 Test Item Value Reference Range Interpretation Comments Lymph CSF (test code = Lymph CSF) 93 40-80 H [facility] [id number] 23:25:00 Test Item Value Reference Range Interpretation Comments Monocyte CSF (test code = Monocyte CSF) 6 15-45 L [facility] [id number] 23:25:00 Test Item Value Reference Range Interpretation Comments Eos CSF (test code = Eos CSF) 1 [facility] [id number] 23:25:00 Test Item Value Reference Range Interpretation Comments Segs CSF (test code = 0 See_Comment N [Auto mated message] The Segs CSF) system which ge nerated this result transmit richard reference range : <=6. The reference range was not used to interpr et this result as robbie l/abnormal. [facility] [id number] 23:25:00 Test Item Value Reference Range Interpretation Comments RBC CSF (test code = 16 See_Comment H [Autom ated message] The RBC CSF) system which ge nerated this result transmit richard reference range : <=0. The reference range was not used to interpr et this result as robbie l/abnormal. [facility] [id number] 23:25:00 Test Item Value Reference Range Interpretation Comments Color CSF (test code Colorless (05/31/2013 N = Color CSF) 18:25:00) [facility] [id number] 23:25:00 Test Item Value Reference Range Interpretation Comments Tube Num CSF (test code = Tube Num CSF) 3 1 [facility] [id number] 23:25:00 Test Item Value Reference Range Interpretation Comments Supernat CSF (test Colorless (05/31/2013 N code = Supernat CSF) 18:25:00) [facility] [id number] 23:25:00 Test Item Value Reference Range Interpretation Comments Clarity CSF (test code = Clear (05/31/2013 N Clarity CSF) 18:25:00) [facility] [id number] 23:25:00 Test Item Value Reference Range Interpretation Comments WBC CSF (test code = 28 See_Comment H [Autom ated message] The WBC CSF) system which ge nerated this result transmit richard reference range : <=5. The reference range was not used to interpr et this result as robbie l/abnormal. [facility] [id number] 23:25:00 Test Item Value Reference Range Interpretation Comments Glucose CSF (test code = Glucose CSF) 51 45-80 N [facility] [id number] 23:25:00 Test Item Value Reference Range Interpretation Comments Segs CSF (test code = 0 See_Comment N [Auto mated message] The Segs CSF) system which ge nerated this result transmit richard reference range : <=6. The reference range was not used to interpr et this result as robbie l/abnormal. [facility] [id number] 23:25:00 Test Item Value Reference Range Interpretation Comments Monocyte CSF (test code = Monocyte CSF) 2 15-45 L [facility] [id number] 23:25:00 Test Item Value Reference Range Interpretation Comments Lymph CSF (test code = Lymph CSF) 98 40-80 H [facility] [id number] 23:25:00 Test Item Value Reference Range Interpretation Comments Tube Num CSF (test code = Tube Num CSF) 1 1 [facility] [id number] 23:25:00 Test Item Value Reference Range Interpretation Comments Supernat CSF (test Colorless (05/31/2013 N code = Supernat CSF) 18:25:00) [facility]2013-10-31 23:25:00 Test Item Value Reference Range Interpretation Comments Clarity CSF (test code = Clear (05/31/2013 N Clarity CSF) 18:25:00) [facility]2013-10-31 23:25:00 Test Item Value Reference Range Interpretation Comments Color CSF (test code Colorless (05/31/2013 N = Color CSF) 18:25:00) [facility] [id number] 23:25:00 Test Item Value Reference Range Interpretation Comments RBC CSF (test code = 21 See_Comment H [Autom ated message] The RBC CSF) system which ge nerated this result transmit richard reference range : <=0. The reference range was not used to interpr et this result as robbie l/abnormal. [facility] [id number] 23:25:00 Test Item Value Reference Range Interpretation Comments WBC CSF (test code = 17 See_Comment H [Autom ated message] The WBC CSF) system which ge nerated this result transmit richard reference range : <=5. The reference range was not used to interpr et this result as robbie l/abnormal. [facility] [id number] 23:25:00 Test Item Value Reference Range Interpretation Comments Protein CSF (test code = Protein CSF) 34 15-45 N [facility] [id number] 23:25:00 Test Item Value Reference Range Interpretation Comments Lymph CSF (test code = Lymph CSF) 93 40-80 H [id number] 23:25:00 Test Item Value Reference Range Interpretation Comments Monocyte CSF (test code = Monocyte CSF) 6 15-[address] [facility]2013-10-31 23:25:00 Test Item Value Reference Range Interpretation Comments Eos CSF (test code = Eos CSF) 1 [facility]2013-10-31 23:25:00 Test Item Value Reference Range Interpretation Comments Segs CSF (test code = 0 See_Comment N [Auto mated message] The Segs CSF) system which ge nerated this result transmit richard reference range : <=6. The reference range was not used to interpr et this result as robbie l/abnormal. [facility] [id number] 23:25:00 Test Item Value Reference Range Interpretation Comments RBC CSF (test code = 16 See_Comment H [Autom ated message] The RBC CSF) system which ge nerated this result transmit richard reference range : <=0. The reference range was not used to interpr et this result as robbie l/abnormal. [facility]2013-10-31 23:25:00 Test Item Value Reference Range Interpretation Comments Color CSF (test code Colorless (05/31/2013 N = Color CSF) 18:25:00) [facility]2013-10-31 23:25:00 Test Item Value Reference Range Interpretation Comments Tube Num CSF (test code = Tube Num CSF) [address] [facility]2013-10-31 23:25:00 Test Item Value Reference Range Interpretation Comments Supernat CSF (test Colorless (05/31/2013 N code = Supernat CSF) 18:25:00) [facility]2013-10-31 23:25:00 Test Item Value Reference Range Interpretation Comments Clarity CSF (test code = Clear (05/31/2013 N Clarity CSF) 18:25:00) [facility] [id number] 23:25:00 Test Item Value Reference Range Interpretation Comments WBC CSF (test code = 28 See_Comment H [Autom ated message] The WBC CSF) system which ge nerated this result transmit richard reference range : <=5. The reference range was not used to interpr et this result as robbie l/abnormal. [facility] [id number] 23:25:00 Test Item Value Reference Range Interpretation Comments Glucose CSF (test code = Glucose CSF) 51 45-80 N [facility] [id number] 23:25:00 Test Item Value Reference Range Interpretation Comments Segs CSF (test code = 0 See_Comment N [Auto mated message] The Segs CSF) system which ge nerated this result transmit richard reference range : <=6. The reference range was not used to interpr et this result as robbie l/abnormal. [facility] [id number] 23:25:00 Test Item Value Reference Range Interpretation Comments Monocyte CSF (test code = Monocyte CSF) 2 15-45 L [facility] [id number] 23:25:00 Test Item Value Reference Range Interpretation Comments Lymph CSF (test code = Lymph CSF) 98 40-80 H [facility] [id number] 23:25:00 Test Item Value Reference Range Interpretation Comments Tube Num CSF (test code = Tube Num CSF) 1 1 [facility] [id number] 23:25:00 Test Item Value Reference Range Interpretation Comments Supernat CSF (test Colorless (05/31/2013 N code = Supernat CSF) 18:25:00) [facility] [id number] 23:25:00 Test Item Value Reference Range Interpretation Comments Clarity CSF (test code = Clear (05/31/2013 N Clarity CSF) 18:25:00) [facility] [id number] 23:25:00 Test Item Value Reference Range Interpretation Comments Color CSF (test code Colorless (05/31/2013 N = Color CSF) 18:25:00) [facility] [id number] 23:25:00 Test Item Value Reference Range Interpretation Comments RBC CSF (test code = 21 See_Comment H [Autom ated message] The RBC CSF) system which ge nerated this result transmit richard reference range : <=0. The reference range was not used to interpr et this result as robbie l/abnormal. [facility] [id number] 23:25:00 Test Item Value Reference Range Interpretation Comments WBC CSF (test code = 17 See_Comment H [Autom ated message] The WBC CSF) system which ge nerated this result transmit richard reference range : <=5. The reference range was not used to interpr et this result as robbie l/abnormal. [facility]2013-10-31 23:25:00 Test Item Value Reference Range Interpretation Comments Protein CSF (test code = Protein CSF) 34 15-[address] [facility]2013-10-31 23:25:00 Test Item Value Reference Range Interpretation Comments Lymph CSF (test code = Lymph CSF) 93 40-[address] [facility]2013-10-31 23:25:00 Test Item Value Reference Range Interpretation Comments Monocyte CSF (test code = Monocyte CSF) 6 15-[address] [facility]2013-10-31 23:25:00 Test Item Value Reference Range Interpretation Comments Eos CSF (test code = Eos CSF) 1 [facility]2013-10-31 23:25:00 Test Item Value Reference Range Interpretation Comments Segs CSF (test code = 0 See_Comment N [Auto mated message] The Segs CSF) system which ge nerated this result transmit richard reference range : <=6. The reference range was not used to interpr et this result as robbie l/abnormal. [facility]2013-10-31 23:25:00 Test Item Value Reference Range Interpretation Comments RBC CSF (test code = 16 See_Comment H [Autom ated message] The RBC CSF) system which ge nerated this result transmit richard reference range : <=0. The reference range was not used to interpr et this result as robbie l/abnormal. [facility]2013-10-31 23:25:00 Test Item Value Reference Range Interpretation Comments Color CSF (test code Colorless (05/31/2013 N = Color CSF) 18:25:00) [facility]2013-10-31 23:25:00 Test Item Value Reference Range Interpretation Comments Tube Num CSF (test code = Tube Num CSF) [address] [facility]2013-10-31 23:25:00 Test Item Value Reference Range Interpretation Comments Supernat CSF (test Colorless (05/31/2013 N code = Supernat CSF) 18:25:00) [facility]2013-10-31 23:25:00 Test Item Value Reference Range Interpretation Comments Clarity CSF (test code = Clear (05/31/2013 N Clarity CSF) 18:25:00) [facility]2013-10-31 23:25:00 Test Item Value Reference Range Interpretation Comments WBC CSF (test code = 28 See_Comment H [Autom ated message] The WBC CSF) system which ge nerated this result transmit richard reference range : <=5. The reference range was not used to interpr et this result as robbie l/abnormal. [facility] [id number] 23:25:00 Test Item Value Reference Range Interpretation Comments Glucose CSF (test code = Glucose CSF) 51 45-80 N [facility] [id number] 23:25:00 Test Item Value Reference Range Interpretation Comments Segs CSF (test code = 0 See_Comment N [Auto mated message] The Segs CSF) system which ge nerated this result transmit richard reference range : <=6. The reference range was not used to interpr et this result as robbie l/abnormal. [facility] [id number] 23:25:00 Test Item Value Reference Range Interpretation Comments Monocyte CSF (test code = Monocyte CSF) 2 15-45 L [facility] [id number] 23:25:00 Test Item Value Reference Range Interpretation Comments Lymph CSF (test code = Lymph CSF) 98 40-80 H [facility] [id number] 23:25:00 Test Item Value Reference Range Interpretation Comments Tube Num CSF (test code = Tube Num CSF) 1 1 [facility] [id number] 23:25:00 Test Item Value Reference Range Interpretation Comments Supernat CSF (test Colorless (05/31/2013 N code = Supernat CSF) 18:25:00) [facility] [id number] 23:25:00 Test Item Value Reference Range Interpretation Comments Clarity CSF (test code = Clear (05/31/2013 N Clarity CSF) 18:25:00) [facility] [id number] 23:25:00 Test Item Value Reference Range Interpretation Comments Color CSF (test code Colorless (05/31/2013 N = Color CSF) 18:25:00) [facility] [id number] 23:25:00 Test Item Value Reference Range Interpretation Comments RBC CSF (test code = 21 See_Comment H [Autom ated message] The RBC CSF) system which ge nerated this result transmit richard reference range : <=0. The reference range was not used to interpr et this result as robbie l/abnormal. [facility] [id number] 23:25:00 Test Item Value Reference Range Interpretation Comments WBC CSF (test code = 17 See_Comment H [Autom ated message] The WBC CSF) system which ge nerated this result transmit richard reference range : <=5. The reference range was not used to interpr et this result as robbie l/abnormal. [facility] Cen[id number] 21:00:55 Test Item Value Reference Range Interpretation Comments AGAP (test code = AGAP) 13.9 10.0-20.0 N [facility] CenterQxvtgtfPSQUWSWRH9658-19-19 21:00:55 Test Item Value Reference Range Interpretation Comments eGFR (test code = eGFR) 122 [facility] Cen[id number] 21:00:55 Test Item Value Reference Range Interpretation Comments CO2 (test code = CO2) 28 24-32 N [facility] CenterGjsahsbFBTDUPXLK7906-80-25 21:00:55 Test Item Value Reference Range Interpretation Comments Calcium Lvl (test code = Calcium Lvl) 9.5 8.5-10.5 N [facility] CenterYtxqeyqMXPXKPVRN9656-72-37 21:00:55 Test Item Value Reference Range Interpretation Comments Sodium Lvl (test code = Sodium Lvl) 139 135-145 N [facility] CenterFaxrhjzRTOYZKWOH7690-20-83 21:00:55 Test Item Value Reference Range Interpretation Comments Potassium Lvl (test code = Potassium 3.9 3.5-5.1 N Lvl) [facility] CenterLiaeuipVJVLRRXCS2174-05-06 21:00:55 Test Item Value Reference Range Interpretation Comments Chloride Lvl (test code = Chloride Lvl) 101 95-109 N [facility] CenterTahiwuuUKTZFVYTX1087-78-42 21:00:55 Test Item Value Reference Range Interpretation Comments Creatinine Lvl (test code = Creatinine 0.7 0.5-1.4 N Lvl) [facility] Cen[id number] 21:00:55 Test Item Value Reference Range Interpretation Comments Glucose Lvl (test code = Glucose Lvl) 109 70-99 H [facility] CenterBuscbplGFOUAYGGA3614-76-19 21:00:55 Test Item Value Reference Range Interpretation Comments BUN (test code = BUN) 13 7-22 N [facility] Cen[id number] 21:00:55 Test Item Value Reference Range Interpretation Comments AGAP (test code = AGAP) 13.9 10.0-20.0 N [facility] CenterNmlzhynNMMBMNINO4464-34-93 21:00:55 Test Item Value Reference Range Interpretation Comments eGFR (test code = eGFR) 122 [facility] CenterFpfcnyjNOSXBGPBE3587-80-23 21:00:55 Test Item Value Reference Range Interpretation Comments CO2 (test code = CO2) 28 24-32 N [facility] CenterVnnzcxpPWWZHESKC9986-71-59 21:00:55 Test Item Value Reference Range Interpretation Comments Calcium Lvl (test code = Calcium Lvl) 9.5 8.5-10.5 N [facility] CenterZomfzpuJNIBEDLBO4077-35-07 21:00:55 Test Item Value Reference Range Interpretation Comments Sodium Lvl (test code = Sodium Lvl) 139 135-145 N [facility] CenterAnpynwcWHPNAPXKL5470-17-77 21:00:55 Test Item Value Reference Range Interpretation Comments Potassium Lvl (test code = Potassium 3.9 3.5-5.1 N Lvl) [facility] CenterBzjbtgdYHOSNRDAL3020-93-51 21:00:55 Test Item Value Reference Range Interpretation Comments Chloride Lvl (test code = Chloride Lvl) 101 95-109 N [facility] CenterUllzrepVEWYCBDSR1301-92-45 21:00:55 Test Item Value Reference Range Interpretation Comments Creatinine Lvl (test code = Creatinine 0.7 0.5-1.4 N Lvl) [facility] CenterTdfqefjVJMFQMTOQ0064-99-33 21:00:55 Test Item Value Reference Range Interpretation Comments Glucose Lvl (test code = Glucose Lvl) 109 70-99 H [facility] CenterYpkjopwBIMOZAXAC3273-54-76 21:00:55 Test Item Value Reference Range Interpretation Comments BUN (test code = BUN) 13 7-22 N [facility] CenterEoanttuLHCODANIG9321-11-50 21:00:55 Test Item Value Reference Range Interpretation Comments AGAP (test code = AGAP) 13.9 10.0-20.0 N [facility] CenterNfhiutaRJHTFQYRH4703-12-33 21:00:55 Test Item Value Reference Range Interpretation Comments eGFR (test code = eGFR) 122 [facility] CenterZrmmndwNKFMKSZLZ1481-26-37 21:00:55 Test Item Value Reference Range Interpretation Comments CO2 (test code = CO2) 28 24-32 N [facility] CenterDzhkerpEDEQFTMWZ2641-13-60 21:00:55 Test Item Value Reference Range Interpretation Comments Calcium Lvl (test code = Calcium Lvl) 9.5 8.5-10.5 N [facility] CenterFpsnklpFSEDGXQFI9665-62-16 21:00:55 Test Item Value Reference Range Interpretation Comments Sodium Lvl (test code = Sodium Lvl) 139 135-145 N [facility] CenterBgkchogJDIYELKJH8449-40-65 21:00:55 Test Item Value Reference Range Interpretation Comments Potassium Lvl (test code = Potassium 3.9 3.5-5.1 N Lvl) [facility]CzwvopuDLZZVUXZI7338-35-51 21:00:55 Test Item Value Reference Range Interpretation Comments Chloride Lvl (test code = Chloride Lvl) 101 95-109 N [facility] CenterQdlsylsGFAKMDVDI0220-92-81 21:00:55 Test Item Value Reference Range Interpretation Comments Creatinine Lvl (test code = Creatinine 0.7 0.5-1.4 N Lvl) [facility] CenterMkwmuutOVGQTOCTC5844-58-93 21:00:55 Test Item Value Reference Range Interpretation Comments Glucose Lvl (test code = Glucose Lvl) 109 70-99 H [facility] CenterVwvbjhqLWOGMCCEC7853-58-77 21:00:55 Test Item Value Reference Range Interpretation Comments BUN (test code = BUN) 13 7-22 N [facility] CenterRjfzbdgYSCRZQQRW6675-89-10 21:00:55 Test Item Value Reference Range Interpretation Comments AGAP (test code = AGAP) 13.9 10.0-20.0 N [facility] CenterPzahcpkFOUPQQKBE7031-12-88 21:00:55 Test Item Value Reference Range Interpretation Comments eGFR (test code = eGFR) 122 [facility] CenterWayllkoAZNANQBCO5796-46-70 21:00:55 Test Item Value Reference Range Interpretation Comments CO2 (test code = CO2) 28 24-32 N [facility] CenterKzocvpcRALWDOCAC8638-86-38 21:00:55 Test Item Value Reference Range Interpretation Comments Calcium Lvl (test code = Calcium Lvl) 9.5 8.5-10.5 N [facility] CenterGrzyxerZESKGBVRT6823-78-83 21:00:55 Test Item Value Reference Range Interpretation Comments Sodium Lvl (test code = Sodium Lvl) 139 135-145 N [facility] CenterTnllvvgGTUTELACP3159-54-23 21:00:55 Test Item Value Reference Range Interpretation Comments Potassium Lvl (test code = Potassium 3.9 3.5-5.1 N Lvl) [facility] CenterAlierbjJJWVPZFUK7960-74-33 21:00:55 Test Item Value Reference Range Interpretation Comments Chloride Lvl (test code = Chloride Lvl) 101 95-109 N [facility] CenterUcwsgqaEICTAJBNY9871-05-74 21:00:55 Test Item Value Reference Range Interpretation Comments Creatinine Lvl (test code = Creatinine 0.7 0.5-1.4 N Lvl) [facility] CenterGfazxxdXTMWMWDFW7487-63-32 21:00:55 Test Item Value Reference Range Interpretation Comments Glucose Lvl (test code = Glucose Lvl) 109 70-99 H [facility] CenterTthartfFDCKQXLNR9632-38-95 21:00:55 Test Item Value Reference Range Interpretation Comments BUN (test code = BUN) 13 7-22 N [facility]JpgaudsJBYBXEFVPA5562-80-77 21:00:17 Test Item Value Reference Range Interpretation Comments Hgb (test code = Hgb) 12.6 12.0-16.0 N [facility] HospitalYelhbyvOPRQSRGVOW7591-68-94 21:00:17 Test Item Value Reference Range Interpretation Comments WBC X 10x3 (test code = WBC X 10x3) 10.2 3.7-10.4 N [facility] HospitalYhymiozRDABFSXZWK8846-72-72 21:00:17 Test Item Value Reference Range Interpretation Comments RBC X 10x6 (test code = RBC X 10x6) 4.28 4.20-5.40 N [facility] HospitalXwmkizjRDPKLURUHE2705-67-15 21:00:17 Test Item Value Reference Range Interpretation Comments Hct (test code = Hct) 38.3 36.0-48.0 N [facility] HospitalEwpeyzvSQHMBILMGI8428-38-34 21:00:17 Test Item Value Reference Range Interpretation Comments MCH (test code = MCH) 29.5 pg 27.0-31.0 N [facility] HospitalEqtsyswSLODQWONUG4828-56-90 21:00:17 Test Item Value Reference Range Interpretation Comments MCV (test code = MCV) 89.4 81.0-99.0 N [facility] HospitalKyrnrubBPPXWZNIWD7671-76-59 21:00:17 Test Item Value Reference Range Interpretation Comments MCHC (test code = MCHC) 32.9 32.0-36.0 N [facility] HospitalPkqpryrUGUNYUDFIE4559-36-64 21:00:17 Test Item Value Reference Range Interpretation Comments RDW (test code = RDW) 12.2 11.5-14.5 N [facility] HospitalGrldzmsICVAYHKNRW9150-05-67 21:00:17 Test Item Value Reference Range Interpretation Comments Platelet (test code = Platelet) 350 133-450 N [facility] HospitalClgfzlbCBGACTIARJ6217-29-11 21:00:17 Test Item Value Reference Range Interpretation Comments MPV (test code = MPV) 7.8 7.4-10.4 N [facility] HospitalHwllzjzSLKDYTQXWM9712-31-85 21:00:17 Test Item Value Reference Range Interpretation Comments Atypical Lymphs (test code = Atypical 0.0 N Lymphs) [facility] HospitalGunnwskRYLCHAFBVO0256-44-87 21:00:17 Test Item Value Reference Range Interpretation Comments Basophils (test code = Basophils) 1.0 <=1.0 N [facility] HospitalJykewxnLMKLMIWAPN2307-18-79 21:00:17 Test Item Value Reference Range Interpretation Comments Myelocytes (test code = Myelocytes) 1.0 H [facility] HospitalBrztbikZNMLVBJKOT5747-49-95 21:00:17 Test Item Value Reference Range Interpretation Comments Segs (test code = Segs) 73.0 45.0-75.0 N [facility] HospitalXkntvneSQOCBEWGNS2169-96-23 21:00:17 Test Item Value Reference Range Interpretation Comments Bands (test code = Bands) 1.0 <=11.0 N [facility] HospitalHbqjnbhJZTJSJFNWP3267-04-63 21:00:17 Test Item Value Reference Range Interpretation Comments Monocytes (test code = Monocytes) 6.0 2.0-12.0 N [facility] HospitalFggyocxKZQTPEGRIH2056-28-51 21:00:17 Test Item Value Reference Range Interpretation Comments Lymphocytes (test code = Lymphocytes) 18.0 20.0-40.0 L [facility] HospitalSgnnvnuNANRRVRNQA6258-44-76 21:00:17 Test Item Value Reference Range Interpretation Comments Basophils # (test code = Basophils #) 0.1 <=0.2 N [facility] HospitalSfbkatbXHGRIHRXDT9134-35-43 21:00:17 Test Item Value Reference Range Interpretation Comments Monocytes # (test code = Monocytes #) 0.6 <=0.8 N [facility] HospitalDxogkwvJOINZFZTHZ2093-78-62 21:00:17 Test Item Value Reference Range Interpretation Comments Plt Morph (test code = Normal (05/31/2013 N Plt Morph) 16:00:17) [facility] HospitalScspbatTKWSSUTBCG0525-02-32 21:00:17 Test Item Value Reference Range Interpretation Comments RBC Morph (test code = Normal (05/31/2013 N RBC Morph) 16:00:17) [facility] HospitalAnkdvhgVBSAOPQSLT7270-89-69 21:00:17 Test Item Value Reference Range Interpretation Comments Segs-Bands # (test code = Segs-Bands #) 7.5 1.5-8.1 N [facility] HospitalLndxjivRVBDXKEUZD8743-48-09 21:00:17 Test Item Value Reference Range Interpretation Comments Lymphocytes # (test code = Lymphocytes 1.8 1.0-5.5 N #) [facility] HospitalEzytbwbPCWJKWDMKC0829-24-44 21:00:17 Test Item Value Reference Range Interpretation Comments Hgb (test code = Hgb) 12.6 12.0-16.0 N [facility] HospitalIjrfbncJWVJTIXRVF6926-35-06 21:00:17 Test Item Value Reference Range Interpretation Comments WBC X 10x3 (test code = WBC X 10x3) 10.2 3.7-10.4 N [facility] HospitalSvgnskuIKKPGXHUJN3772-16-35 21:00:17 Test Item Value Reference Range Interpretation Comments RBC X 10x6 (test code = RBC X 10x6) 4.28 4.20-5.40 N [facility] HospitalDjmtgwxDGDISTPCWS8817-76-29 21:00:17 Test Item Value Reference Range Interpretation Comments Hct (test code = Hct) 38.3 36.0-48.0 N [facility] HospitalMwndwvyRTFDYKZBVD6758-41-83 21:00:17 Test Item Value Reference Range Interpretation Comments MCH (test code = MCH) 29.5 pg 27.0-31.0 N [facility] HospitalAcztwkwDVYSWHTNNS7856-39-42 21:00:17 Test Item Value Reference Range Interpretation Comments MCV (test code = MCV) 89.4 81.0-99.0 N [facility] HospitalMsnxeynOHOMELYJVF7498-79-90 21:00:17 Test Item Value Reference Range Interpretation Comments MCHC (test code = MCHC) 32.9 32.0-36.0 N [facility] HospitalKvkytyuLRNOMMVYTH4392-22-33 21:00:17 Test Item Value Reference Range Interpretation Comments RDW (test code = RDW) 12.2 11.5-14.5 N [facility] HospitalIarqkzgDYOQFEMSGP9489-03-61 21:00:17 Test Item Value Reference Range Interpretation Comments Platelet (test code = Platelet) 350 133-450 N [facility] HospitalBnkxbxlGHNOWXCMTE6464-18-80 21:00:17 Test Item Value Reference Range Interpretation Comments MPV (test code = MPV) 7.8 7.4-10.4 N [facility] HospitalUsumpldZACDARQWQN0632-35-32 21:00:17 Test Item Value Reference Range Interpretation Comments Atypical Lymphs (test code = Atypical 0.0 N Lymphs) [facility] HospitalDmgeyonZNKKFTMFQL6454-07-90 21:00:17 Test Item Value Reference Range Interpretation Comments Basophils (test code = 1.0 See_Comment N [Aut omated message] The Basophils) system which ge nerated this result tra nsmitted reference range : <=1.0. The reference r joan was not used to int erpret this result as normal/abnormal . [facility] HospitalAwwrkueXHFWVRXPMB9811-39-61 21:00:17 Test Item Value Reference Range Interpretation Comments Myelocytes (test code = Myelocytes) 1.0 H [facility] HospitalUuevvhkIAFCEMRNFM7207-31-93 21:00:17 Test Item Value Reference Range Interpretation Comments Segs (test code = Segs) 73.0 45.0-75.0 N [facility] HospitalCepqmxwLMURPMWDEU4435-32-27 21:00:17 Test Item Value Reference Range Interpretation Comments Bands (test code = 1.0 See_Comment N [Automat ed message] The Bands) system which ge nerated this result transmit richard reference range : <=11.0. The reference r joan was not used to interpr et this result as robbie l/abnormal. [facility] HospitalEwfnkqxCTJQUUPZTO5421-45-01 21:00:17 Test Item Value Reference Range Interpretation Comments Monocytes (test code = Monocytes) 6.0 2.0-12.0 N [facility] HospitalAzigjhhWCJTECRHZP2730-97-28 21:00:17 Test Item Value Reference Range Interpretation Comments Lymphocytes (test code = Lymphocytes) 18.0 20.0-40.0 L [facility] HospitalScngytqSJIILTAQSP6224-55-48 21:00:17 Test Item Value Reference Range Interpretation Comments Basophils # (test code 0.1 See_Comment N [Aut omated message] The = Basophils #) system which generated this result tra nsmitted reference range : <=0.2. The reference r joan was not used to int erpret this result as normal/abnormal . [place] 140423-10-31 21:00:17 Test Item Value Reference Range Interpretation Comments Monocytes # (test code 0.6 See_Comment N [Aut omated message] The = Monocytes #) system which generated this result tra nsmitted reference range : <=0.8. The reference r joan was not used to int erpret this result as normal/abnormal . [facility] HospitalMnwddfuHHLOJGKDKB7554-74-26 21:00:17 Test Item Value Reference Range Interpretation Comments Plt Morph (test code = Normal (05/31/2013 N Plt Morph) 16:00:17) [facility] HospitalGxssbvxRBYEOAAHZO3368-15-33 21:00:17 Test Item Value Reference Range Interpretation Comments RBC Morph (test code = Normal (05/31/2013 N RBC Morph) 16:00:17) [facility] HospitalYujqskgJGRQTECVRL4167-44-21 21:00:17 Test Item Value Reference Range Interpretation Comments Segs-Bands # (test code = Segs-Bands #) 7.5 1.5-8.1 N [facility] HospitalOrtoeegBTQXPWIJEQ1435-08-56 21:00:17 Test Item Value Reference Range Interpretation Comments Lymphocytes # (test code = Lymphocytes 1.8 1.0-5.5 N #) [facility] HospitalNwbvoelEKDRVNOQXN5852-50-33 21:00:17 Test Item Value Reference Range Interpretation Comments Hgb (test code = Hgb) 12.6 12.0-16.0 N [facility] HospitalWulgaslBZYECETZRE4264-63-87 21:00:17 Test Item Value Reference Range Interpretation Comments WBC X 10x3 (test code = WBC X 10x3) 10.2 3.7-10.4 N [facility] HospitalViezcrhHMQNVJEUEO1656-33-78 21:00:17 Test Item Value Reference Range Interpretation Comments RBC X 10x6 (test code = RBC X 10x6) 4.28 4.20-5.40 N [facility] HospitalOhsdzniVLWUWFBEGW6432-03-19 21:00:17 Test Item Value Reference Range Interpretation Comments Hct (test code = Hct) 38.3 36.0-48.0 N [facility] HospitalRiapumkFOVICMSBGZ1715-55-95 21:00:17 Test Item Value Reference Range Interpretation Comments MCH (test code = MCH) 29.5 pg 27.0-31.0 N [facility] HospitalJbxrlbsVNVLNEPCSB3545-91-73 21:00:17 Test Item Value Reference Range Interpretation Comments MCV (test code = MCV) 89.4 81.0-99.0 N [facility] HospitalGbsopkvSXXYBQYYYO9822-18-01 21:00:17 Test Item Value Reference Range Interpretation Comments MCHC (test code = MCHC) 32.9 32.0-36.0 N [facility] HospitalMxowmbxMIXYXSADTQ2643-64-50 21:00:17 Test Item Value Reference Range Interpretation Comments RDW (test code = RDW) 12.2 11.5-14.5 N [facility] HospitalNxrpdquOXFXRHHPHK4680-11-35 21:00:17 Test Item Value Reference Range Interpretation Comments Platelet (test code = Platelet) 350 133-450 N [facility] HospitalCqbxnbwBILQBKZTED0124-26-69 21:00:17 Test Item Value Reference Range Interpretation Comments MPV (test code = MPV) 7.8 7.4-10.4 N [facility] HospitalIjpmzweNIXPQFIDBD6040-95-10 21:00:17 Test Item Value Reference Range Interpretation Comments Atypical Lymphs (test code = Atypical 0.0 N Lymphs) [facility] HospitalLotbpzcGWWFOSXYLT4596-42-04 21:00:17 Test Item Value Reference Range Interpretation Comments Basophils (test code = 1.0 See_Comment N [Aut omated message] The Basophils) system which ge nerated this result tra nsmitted reference range : <=1.0. The reference r joan was not used to int erpret this result as normal/abnormal . [facility] HospitalSiprnxbMVMAEOFJTF8276-01-46 21:00:17 Test Item Value Reference Range Interpretation Comments Myelocytes (test code = Myelocytes) 1.0 H [facility] HospitalPgenrgdNPNXCEHOHU8461-48-49 21:00:17 Test Item Value Reference Range Interpretation Comments Segs (test code = Segs) 73.0 45.0-75.0 N [facility] HospitalTprrxwfUQAOOMBROQ7200-54-71 21:00:17 Test Item Value Reference Range Interpretation Comments Bands (test code = 1.0 See_Comment N [Automat ed message] The Bands) system which ge nerated this result transmit richard reference range : <=11.0. The reference r joan was not used to interpr et this result as robbie l/abnormal. [facility] HospitalAehtyrfPXYKKEMRMI9269-34-31 21:00:17 Test Item Value Reference Range Interpretation Comments Monocytes (test code = Monocytes) 6.0 2.0-12.0 N [facility] HospitalXwfvwhnOJMPTYOKBN8565-48-77 21:00:17 Test Item Value Reference Range Interpretation Comments Lymphocytes (test code = Lymphocytes) 18.0 20.0-40.0 L [facility] HospitalMihchpjEJNVDBZDRG2892-70-35 21:00:17 Test Item Value Reference Range Interpretation Comments Basophils # (test code 0.1 See_Comment N [Aut omated message] The = Basophils #) system which generated this result tra nsmitted reference range : <=0.2. The reference r joan was not used to int erpret this result as normal/abnormal . [facility] HospitalZkvrjewAOEPIYGQEG8208-89-80 21:00:17 Test Item Value Reference Range Interpretation Comments Monocytes # (test code 0.6 See_Comment N [Aut omated message] The = Monocytes #) system which generated this result tra nsmitted reference range : <=0.8. The reference r joan was not used to int erpret this result as normal/abnormal . [facility] HospitalOfvmhgsONDDVFAPOX6184-59-61 21:00:17 Test Item Value Reference Range Interpretation Comments Plt Morph (test code = Normal (05/31/2013 N Plt Morph) 16:00:17) [facility] HospitalIcvdrwsAJQMGHRQWC6196-29-41 21:00:17 Test Item Value Reference Range Interpretation Comments RBC Morph (test code = Normal (05/31/2013 N RBC Morph) 16:00:17) [facility] HospitalGgllglvHNNKEIUMVY4823-89-40 21:00:17 Test Item Value Reference Range Interpretation Comments Segs-Bands # (test code = Segs-Bands #) 7.5 1.5-8.1 N [facility] HospitalZwdcxxdSWVCKAGVPZ8559-10-00 21:00:17 Test Item Value Reference Range Interpretation Comments Lymphocytes # (test code = Lymphocytes 1.8 1.0-5.5 N #) [facility] HospitalCqjcsjaJHSWITBUHK5678-14-16 21:00:17 Test Item Value Reference Range Interpretation Comments Hgb (test code = Hgb) 12.6 12.0-16.0 N [facility] HospitalXtxjeeyOPUVJOZVJM7444-12-43 21:00:17 Test Item Value Reference Range Interpretation Comments WBC X 10x3 (test code = WBC X 10x3) 10.2 3.7-10.4 N [facility] HospitalKjqcnslDEKELZBSAV5142-11-52 21:00:17 Test Item Value Reference Range Interpretation Comments RBC X 10x6 (test code = RBC X 10x6) 4.28 4.20-5.40 N [facility] HospitalZyjaykpUBRHOTEFIX7040-33-80 21:00:17 Test Item Value Reference Range Interpretation Comments Hct (test code = Hct) 38.3 36.0-48.0 N [facility] HospitalBeslhmkCVQILCNZNZ9745-09-69 21:00:17 Test Item Value Reference Range Interpretation Comments MCH (test code = MCH) 29.5 pg 27.0-31.0 N [facility] HospitalShluplgFMPBTAHPYF2053-79-89 21:00:17 Test Item Value Reference Range Interpretation Comments MCV (test code = MCV) 89.4 81.0-99.0 N [facility] HospitalEnofsnwFKWVXLLRBL2716-99-26 21:00:17 Test Item Value Reference Range Interpretation Comments MCHC (test code = MCHC) 32.9 32.0-36.0 N [facility] HospitalWrsdixoEDJCDWVIDL3936-68-37 21:00:17 Test Item Value Reference Range Interpretation Comments RDW (test code = RDW) 12.2 11.5-14.5 N [facility] HospitalExmnxwuOUOWBLYEQI7254-94-76 21:00:17 Test Item Value Reference Range Interpretation Comments Platelet (test code = Platelet) 350 133-450 N [facility] HospitalPwxopevFMNETGGUDI8407-36-97 21:00:17 Test Item Value Reference Range Interpretation Comments MPV (test code = MPV) 7.8 7.4-10.4 N [facility] HospitalXipputeIAJWTOBCMO2119-05-83 21:00:17 Test Item Value Reference Range Interpretation Comments Atypical Lymphs (test code = Atypical 0.0 N Lymphs) [facility] HospitalVyxeidcYFJJSBDQPE1590-48-95 21:00:17 Test Item Value Reference Range Interpretation Comments Basophils (test code = 1.0 See_Comment N [Aut omated message] The Basophils) system which ge nerated this result tra nsmitted reference range : <=1.0. The reference r joan was not used to int erpret this result as normal/abnormal . [facility] HospitalQbnjihcDVYYAHOXYX0601-97-65 21:00:17 Test Item Value Reference Range Interpretation Comments Myelocytes (test code = Myelocytes) 1.0 H [facility] HospitalNshscvgEWCJWOTDNW1472-46-90 21:00:17 Test Item Value Reference Range Interpretation Comments Segs (test code = Segs) 73.0 45.0-75.0 N [facility] HospitalBjzdiufUMLEFKDXZV8830-58-99 21:00:17 Test Item Value Reference Range Interpretation Comments Bands (test code = 1.0 See_Comment N [Automat ed message] The Bands) system which ge nerated this result transmit richard reference range : <=11.0. The reference r joan was not used to interpr et this result as robbie l/abnormal. [facility] HospitalOsordkkMUQIWHTQRR0853-91-05 21:00:17 Test Item Value Reference Range Interpretation Comments Monocytes (test code = Monocytes) 6.0 2.0-12.0 N [facility] HospitalIrfkbsxJHPSSMMCYJ8470-39-88 21:00:17 Test Item Value Reference Range Interpretation Comments Lymphocytes (test code = Lymphocytes) 18.0 20.0-40.0 L [facility] HospitalPhtualvNNHOFARYZU9365-06-79 21:00:17 Test Item Value Reference Range Interpretation Comments Basophils # (test code 0.1 See_Comment N [Aut omated message] The = Basophils #) system which generated this result tra nsmitted reference range : <=0.2. The reference r joan was not used to int erpret this result as normal/abnormal . [facility] HospitalClgzednGFEINEZDDW0487-23-24 21:00:17 Test Item Value Reference Range Interpretation Comments Monocytes # (test code 0.6 See_Comment N [Aut omated message] The = Monocytes #) system which generated this result tra nsmitted reference range : <=0.8. The reference r joan was not used to int erpret this result as normal/abnormal . [facility] HospitalUycawwpSHFVQNDTAZ8613-45-88 21:00:17 Test Item Value Reference Range Interpretation Comments Plt Morph (test code = Normal (05/31/2013 N Plt Morph) 16:00:17) [facility] HospitalRmqfelaVHNRQRVDNZ2040-75-78 21:00:17 Test Item Value Reference Range Interpretation Comments RBC Morph (test code = Normal (05/31/2013 N RBC Morph) 16:00:17) [facility] HospitalSmklgzbHEOAHTKIXJ0647-25-88 21:00:17 Test Item Value Reference Range Interpretation Comments Segs-Bands # (test code = Segs-Bands #) 7.5 1.5-8.1 N [facility] HospitalNfrusuoUYCJBLYJEI5510-64-00 21:00:17 Test Item Value Reference Range Interpretation Comments Lymphocytes # (test code = Lymphocytes 1.8 1.0-5.5 N #) [facility] GLUCOSE CSMDPDT7720-35-52 22:20:00 Test Item Value Reference Range Interpretation Comments Glucose POC (test code = Glucose POC) 139 70-99 H [facility] GLUCOSE EKPBAPW2444-07-76 22:20:00 Test Item Value Reference Range Interpretation Comments Glucose POC (test code = Glucose POC) 139 70-99 H [facility] GLUCOSE UDLTZHC9294-62-56 22:20:00 Test Item Value Reference Range Interpretation Comments Glucose POC (test code = Glucose POC) 139 70-99 H [facility] GLUCOSE IXCXSBN4178-64-15 22:20:00 Test Item Value Reference Range Interpretation Comments Glucose POC (test code = Glucose POC) 139 70-99 H [facility] HospitalXwgsbyeGONRNLUDUB6792-06-74 10:41:00 Test Item Value Reference Range Interpretation Comments Segs (test code = Segs) 87.0 45.0-75.0 H [facility] HospitalPbgfedjYXTQBSEYJE6284-53-35 10:41:00 Test Item Value Reference Range Interpretation Comments Basophils (test code = 0.1 See_Comment N [Aut omated message] The Basophils) system which ge nerated this result tra nsmitted reference range : <=1.0. The reference r joan was not used to int erpret this result as normal/abnormal . [facility] HospitalDhfcfnpABWSONSOPD9472-23-51 10:41:00 Test Item Value Reference Range Interpretation Comments Monocytes (test code = Monocytes) 4.2 2.0-12.0 N [facility] HospitalYdfyafpDSRRJYALNL7137-02-87 10:41:00 Test Item Value Reference Range Interpretation Comments Lymphocytes (test code = Lymphocytes) 8.7 20.0-40.0 L [facility] CenterQtjqmtjMFAIFUGBK3220-08-43 10:41:00 Test Item Value Reference Range Interpretation Comments Magnesium Lvl (test code = Magnesium 1.7 1.8-2.4 L Lvl) [facility] CenterPufrswbEIAZXVWKF0382-66-69 10:41:00 Test Item Value Reference Range Interpretation Comments AGAP (test code = AGAP) 15.1 10.0-20.0 N [facility] CenterOmubctyTCLNZVQSG0332-92-07 10:41:00 Test Item Value Reference Range Interpretation Comments eGFR (test code = eGFR) 90 [facility] CenterNbctmasHLFTSFHPA6657-10-18 10:41:00 Test Item Value Reference Range Interpretation Comments Glucose Lvl (test code = Glucose Lvl) 114 70-99 H [facility] CenterGbosquqHFOLQKOXE1905-07-91 10:41:00 Test Item Value Reference Range Interpretation Comments CO2 (test code = CO2) 25 24-32 N [facility] CenterWkpduvwWONJYDAWZ1396-86-75 10:41:00 Test Item Value Reference Range Interpretation Comments Calcium Lvl (test code = Calcium Lvl) 8.7 8.5-10.5 N [facility] CenterQwzktogBAWTVYOFT9161-10-14 10:41:00 Test Item Value Reference Range Interpretation Comments Potassium Lvl (test code = Potassium 4.1 3.5-5.1 N Lvl) [facility] CenterDmirvnjMCVBDXYXV2733-82-80 10:41:00 Test Item Value Reference Range Interpretation Comments Chloride Lvl (test code = Chloride Lvl) 108 95-109 N [facility] CenterBtoxjtyCBGWNNDTS9261-15-84 10:41:00 Test Item Value Reference Range Interpretation Comments Sodium Lvl (test code = Sodium Lvl) 144 135-145 N [facility] CenterGlzscueIKXEYGHGM6899-22-84 10:41:00 Test Item Value Reference Range Interpretation Comments Creatinine Lvl (test code = Creatinine 0.9 0.5-1.4 N Lvl) [facility] CenterHqwrxojQIBSOVPBZ6480-64-65 10:41:00 Test Item Value Reference Range Interpretation Comments BUN (test code = BUN) 13 7-22 N [facility] CenterPdlesblJZXGCILOC1458-85-34 10:41:00 Test Item Value Reference Range Interpretation Comments Phosphorus (test code = Phosphorus) 2.7 2.5-4.5 N [facility] CenterYrcgwioKDHNLSSBH0573-03-13 10:41:00 Test Item Value Reference Range Interpretation Comments Ca Ion WB (test code = Ca Ion WB) 1.09 1.05-1.25 N [facility] CenterHrstrgjISYOQUWVX8968-49-06 10:41:00 Test Item Value Reference Range Interpretation Comments Ca Norm WB (test code = Ca Norm WB) 1.11 1.05-1.25 N [facility] HospitalRfqcbrvBBNAFKXDUO2125-37-10 10:41:00 Test Item Value Reference Range Interpretation Comments MPV (test code = MPV) 9.3 7.4-10.4 N [facility]QvkpdjiWFQISUSQKJ9671-89-70 10:41:00 Test Item Value Reference Range Interpretation Comments Platelet (test code = Platelet) 214 133-450 N [facility]RpcbvdvYSPYNZZANZ6947-93-74 10:41:00 Test Item Value Reference Range Interpretation Comments RDW (test code = RDW) 12.2 11.5-14.5 N [facility] HospitalXyruvgeRUKZWEGHEL4423-11-42 10:41:00 Test Item Value Reference Range Interpretation Comments Hct (test code = Hct) 30.8 36.0-48.0 L [facility] HospitalUmouifyPRJATPADZC3687-18-66 10:41:00 Test Item Value Reference Range Interpretation Comments MCH (test code = MCH) 30.7 pg 27.0-31.0 N [facility] HospitalUolbkwpTLBFCJRNAE5191-50-88 10:41:00 Test Item Value Reference Range Interpretation Comments MCV (test code = MCV) 90.8 81.0-99.0 N [facility] HospitalFjcfrwbQGHAUUMOEC3930-55-10 10:41:00 Test Item Value Reference Range Interpretation Comments MCHC (test code = MCHC) 33.9 32.0-36.0 N [facility] HospitalVimesvbNIUBMRFKEO6943-91-91 10:41:00 Test Item Value Reference Range Interpretation Comments WBC X 10x3 (test code = WBC X 10x3) 17.7 3.7-10.4 H [facility] HospitalDnkdqkdTJUAUDTDJX7142-21-34 10:41:00 Test Item Value Reference Range Interpretation Comments Hgb (test code = Hgb) 10.4 12.0-16.0 L [facility] HospitalAiwffwiGKXPYMWRQY3704-00-10 10:41:00 Test Item Value Reference Range Interpretation Comments RBC X 10x6 (test code = RBC X 10x6) 3.39 4.20-5.40 L [facility] HospitalSvoxbrbWIHCVTVYCF3620-95-73 10:41:00 Test Item Value Reference Range Interpretation Comments Segs-Bands # (test code = Segs-Bands #) 15.4 1.5-8.1 H [facility] HospitalTdwejbiDXRVHAPKYG1713-27-09 10:41:00 Test Item Value Reference Range Interpretation Comments Lymphocytes # (test code = Lymphocytes 1.5 1.0-5.5 N #) [facility]ZfqurszKFOYQGNVVP0859-01-56 10:41:00 Test Item Value Reference Range Interpretation Comments Monocytes # (test code 0.7 See_Comment N [Aut omated message] The = Monocytes #) system which generated this result tra nsmitted reference range : <=0.8. The reference r joan was not used to int erpret this result as normal/abnormal . [facility] HospitalZomippqROGNORWSES9226-51-27 10:41:00 Test Item Value Reference Range Interpretation Comments Segs (test code = Segs) 87.0 45.0-75.0 H [facility] HospitalHtfgyriCIWEZMKROH1947-81-25 10:41:00 Test Item Value Reference Range Interpretation Comments Basophils (test code = 0.1 See_Comment N [Aut omated message] The Basophils) system which ge nerated this result tra nsmitted reference range : <=1.0. The reference r joan was not used to int erpret this result as normal/abnormal . [facility] HospitalJdwxdchEOHMNMQLTN2778-21-90 10:41:00 Test Item Value Reference Range Interpretation Comments Monocytes (test code = Monocytes) 4.2 2.0-12.0 N [facility] HospitalFrreuzaYFQMSEKNRJ0577-68-92 10:41:00 Test Item Value Reference Range Interpretation Comments Lymphocytes (test code = Lymphocytes) 8.7 20.0-40.0 L [facility] CenterWtjrourDCKCYZCFF6026-55-54 10:41:00 Test Item Value Reference Range Interpretation Comments Magnesium Lvl (test code = Magnesium 1.7 1.8-2.4 L Lvl) [facility] CenterVsrglxzVKIQOOURE8658-16-10 10:41:00 Test Item Value Reference Range Interpretation Comments AGAP (test code = AGAP) 15.1 10.0-20.0 N [facility] CenterOslrugzWSHSCCRDP5896-88-63 10:41:00 Test Item Value Reference Range Interpretation Comments eGFR (test code = eGFR) 90 [facility] CenterNdzzytpSOIJJOLUQ9239-40-50 10:41:00 Test Item Value Reference Range Interpretation Comments Glucose Lvl (test code = Glucose Lvl) 114 70-99 H [facility] CenterFufvrgvJWJHVNCAC8614-94-53 10:41:00 Test Item Value Reference Range Interpretation Comments CO2 (test code = CO2) 25 24-32 N [facility] CenterAnvzwcnMSUAPEKDA2091-56-90 10:41:00 Test Item Value Reference Range Interpretation Comments Calcium Lvl (test code = Calcium Lvl) 8.7 8.5-10.5 N [facility] CenterVibkcqdQIHHLPWLH4982-99-74 10:41:00 Test Item Value Reference Range Interpretation Comments Potassium Lvl (test code = Potassium 4.1 3.5-5.1 N Lvl) [facility] CenterIghikxnLDUWJZRAY0342-93-91 10:41:00 Test Item Value Reference Range Interpretation Comments Chloride Lvl (test code = Chloride Lvl) 108 95-109 N [facility] CenterGjkgnwbNEVKXQCLL2847-40-08 10:41:00 Test Item Value Reference Range Interpretation Comments Sodium Lvl (test code = Sodium Lvl) 144 135-145 N [facility] CenterVkjakkzQLHTHXRPK6427-90-64 10:41:00 Test Item Value Reference Range Interpretation Comments Creatinine Lvl (test code = Creatinine 0.9 0.5-1.4 N Lvl) [facility] CenterZxgwvxrTFVGTJYIA7853-50-47 10:41:00 Test Item Value Reference Range Interpretation Comments BUN (test code = BUN) 13 7-22 N [facility] CenterMahbzeeEMICJAXCB4857-35-32 10:41:00 Test Item Value Reference Range Interpretation Comments Phosphorus (test code = Phosphorus) 2.7 2.5-4.5 N [facility] CenterMbzqpltWKELFKITQ7422-08-83 10:41:00 Test Item Value Reference Range Interpretation Comments Ca Ion WB (test code = Ca Ion WB) 1.09 1.05-1.25 N [facility] CenterHzrwzukDZUHGFZBC7267-21-64 10:41:00 Test Item Value Reference Range Interpretation Comments Ca Norm WB (test code = Ca Norm WB) 1.11 1.05-1.25 N [facility] HospitalLrlbpdbQKWTDVTBDR1304-10-20 10:41:00 Test Item Value Reference Range Interpretation Comments MPV (test code = MPV) 9.3 7.4-10.4 N [facility] HospitalOinfrunIJIBHYHPKH7704-83-51 10:41:00 Test Item Value Reference Range Interpretation Comments Platelet (test code = Platelet) 214 133-450 N [facility] HospitalMhgpqtlVXXRYIMGFU4122-33-29 10:41:00 Test Item Value Reference Range Interpretation Comments RDW (test code = RDW) 12.2 11.5-14.5 N [facility] HospitalYzgvdkwTERQZARXLA8285-28-09 10:41:00 Test Item Value Reference Range Interpretation Comments Hct (test code = Hct) 30.8 36.0-48.0 L [facility] HospitalKcszovzDUXTTCHMWY4340-37-55 10:41:00 Test Item Value Reference Range Interpretation Comments MCH (test code = MCH) 30.7 pg 27.0-31.0 N [facility] HospitalJckmgbyHRDYZDYSOX0204-97-41 10:41:00 Test Item Value Reference Range Interpretation Comments MCV (test code = MCV) 90.8 81.0-99.0 N [facility] HospitalFxmplqbNSLPVUVDLJ1999-81-23 10:41:00 Test Item Value Reference Range Interpretation Comments MCHC (test code = MCHC) 33.9 32.0-36.0 N [facility] HospitalYhgewvjJPHDUODJAL9953-04-01 10:41:00 Test Item Value Reference Range Interpretation Comments WBC X 10x3 (test code = WBC X 10x3) 17.7 3.7-10.4 H [facility] HospitalKjapowuTRJBFRPGCG0308-19-64 10:41:00 Test Item Value Reference Range Interpretation Comments Hgb (test code = Hgb) 10.4 12.0-16.0 L [facility] HospitalLbrawwsCYVVHFBFFM9284-54-35 10:41:00 Test Item Value Reference Range Interpretation Comments RBC X 10x6 (test code = RBC X 10x6) 3.39 4.20-5.40 L [facility] HospitalSzdsmogBWZYYUEQOM0752-82-28 10:41:00 Test Item Value Reference Range Interpretation Comments Segs-Bands # (test code = Segs-Bands #) 15.4 1.5-8.1 H [facility] HospitalGevfwkvKQDWFGGLPN3653-84-07 10:41:00 Test Item Value Reference Range Interpretation Comments Lymphocytes # (test code = Lymphocytes 1.5 1.0-5.5 N #) [facility] HospitalUijcxajLAJIPEDIFN1637-52-21 10:41:00 Test Item Value Reference Range Interpretation Comments Monocytes # (test code 0.7 See_Comment N [Aut omated message] The = Monocytes #) system which generated this result tra nsmitted reference range : <=0.8. The reference r joan was not used to int erpret this result as normal/abnormal . [facility] HospitalJtwtnnpWELECJJVMC9682-74-50 10:41:00 Test Item Value Reference Range Interpretation Comments Segs (test code = Segs) 87.0 45.0-75.0 H [facility] HospitalHrqauhsIUVNJKVHCN6048-33-67 10:41:00 Test Item Value Reference Range Interpretation Comments Basophils (test code = 0.1 See_Comment N [Aut omated message] The Basophils) system which ge nerated this result tra nsmitted reference range : <=1.0. The reference r joan was not used to int erpret this result as normal/abnormal . [facility] HospitalPmaiapgVQHCSVXDRH5829-02-16 10:41:00 Test Item Value Reference Range Interpretation Comments Monocytes (test code = Monocytes) 4.2 2.0-12.0 N [facility] HospitalNdcowktMFGGPIBJCL0479-13-97 10:41:00 Test Item Value Reference Range Interpretation Comments Lymphocytes (test code = Lymphocytes) 8.7 20.0-40.0 L [facility] CenterHzkupgkGLSAJWMON1360-48-46 10:41:00 Test Item Value Reference Range Interpretation Comments Magnesium Lvl (test code = Magnesium 1.7 1.8-2.4 L Lvl) [facility] CenterNfybkmvVGKFHHANY3233-50-94 10:41:00 Test Item Value Reference Range Interpretation Comments AGAP (test code = AGAP) 15.1 10.0-20.0 N [facility] CenterBwourveFWLSIKRPI1407-49-03 10:41:00 Test Item Value Reference Range Interpretation Comments eGFR (test code = eGFR) 90 [facility] CenterFclmhpvDTAOISDIM6976-84-39 10:41:00 Test Item Value Reference Range Interpretation Comments Glucose Lvl (test code = Glucose Lvl) 114 70-99 H [facility] CenterEbibwlaHXEWXNPNY7529-91-45 10:41:00 Test Item Value Reference Range Interpretation Comments CO2 (test code = CO2) 25 24-32 N [facility] CenterLuyyqyhQBKEEALWX6196-21-02 10:41:00 Test Item Value Reference Range Interpretation Comments Calcium Lvl (test code = Calcium Lvl) 8.7 8.5-10.5 N [facility] CenterMwkluikRMXKWBQQY6089-33-36 10:41:00 Test Item Value Reference Range Interpretation Comments Potassium Lvl (test code = Potassium 4.1 3.5-5.1 N Lvl) [facility] CenterTwvlydyAPVEBABEB0783-55-54 10:41:00 Test Item Value Reference Range Interpretation Comments Chloride Lvl (test code = Chloride Lvl) 108 95-109 N [facility] CenterBqnpfyvZMPAYIOWY7852-68-96 10:41:00 Test Item Value Reference Range Interpretation Comments Sodium Lvl (test code = Sodium Lvl) 144 135-145 N [facility] CenterBnideetLHEEJDWWQ9760-46-13 10:41:00 Test Item Value Reference Range Interpretation Comments Creatinine Lvl (test code = Creatinine 0.9 0.5-1.4 N Lvl) [facility] CenterFdehyldZYLWYXGNM0544-83-94 10:41:00 Test Item Value Reference Range Interpretation Comments BUN (test code = BUN) 13 7-22 N [facility] CenterPbyomtwEACARYPHL2095-51-14 10:41:00 Test Item Value Reference Range Interpretation Comments Phosphorus (test code = Phosphorus) 2.7 2.5-4.5 N [facility] CenterEyslnoeGQGQKIFTE4919-76-06 10:41:00 Test Item Value Reference Range Interpretation Comments Ca Ion WB (test code = Ca Ion WB) 1.09 1.05-1.25 N [facility] CenterZhxlagrIHXXPTAYB5890-96-37 10:41:00 Test Item Value Reference Range Interpretation Comments Ca Norm WB (test code = Ca Norm WB) 1.11 1.05-1.25 N [facility] HospitalPagekdcPLSDXZSCYU7421-47-49 10:41:00 Test Item Value Reference Range Interpretation Comments MPV (test code = MPV) 9.3 7.4-10.4 N [facility] HospitalPyceuvkYGKBPSZVOB8275-73-80 10:41:00 Test Item Value Reference Range Interpretation Comments Platelet (test code = Platelet) 214 133-450 N [facility] HospitalBuzbochJSPEWMFNTX0344-72-99 10:41:00 Test Item Value Reference Range Interpretation Comments RDW (test code = RDW) 12.2 11.5-14.5 N [facility] HospitalLcwymruAYNYMLLYOV2998-19-47 10:41:00 Test Item Value Reference Range Interpretation Comments Hct (test code = Hct) 30.8 36.0-48.0 L [facility] HospitalEnmvtjoTPHFCTTFIH8034-67-89 10:41:00 Test Item Value Reference Range Interpretation Comments MCH (test code = MCH) 30.7 pg 27.0-31.0 N [facility] HospitalJidjyeuVKPINDLLWS4504-34-39 10:41:00 Test Item Value Reference Range Interpretation Comments MCV (test code = MCV) 90.8 81.0-99.0 N [facility] HospitalNzmwwqiMFFQYUBKAV0987-09-82 10:41:00 Test Item Value Reference Range Interpretation Comments MCHC (test code = MCHC) 33.9 32.0-36.0 N [facility] HospitalMfyxrvcREXPMYBVWM8327-28-13 10:41:00 Test Item Value Reference Range Interpretation Comments WBC X 10x3 (test code = WBC X 10x3) 17.7 3.7-10.4 H [facility] HospitalOvlrvyxNSXCNUIMXB0042-45-91 10:41:00 Test Item Value Reference Range Interpretation Comments Hgb (test code = Hgb) 10.4 12.0-16.0 L [facility] HospitalCahwcmgGWRUPGXZKM4510-45-71 10:41:00 Test Item Value Reference Range Interpretation Comments RBC X 10x6 (test code = RBC X 10x6) 3.39 4.20-5.40 L [facility] HospitalEzlhwoyDRBPAAOLHI1658-12-19 10:41:00 Test Item Value Reference Range Interpretation Comments Segs-Bands # (test code = Segs-Bands #) 15.4 1.5-8.1 H [facility] HospitalBxslhpkWQXGHLFNOC4382-76-53 10:41:00 Test Item Value Reference Range Interpretation Comments Lymphocytes # (test code = Lymphocytes 1.5 1.0-5.5 N #) [facility] HospitalQeiioviOZWALRAEQP0506-26-61 10:41:00 Test Item Value Reference Range Interpretation Comments Monocytes # (test code = Monocytes #) 0.7 <=0.8 N [facility] HospitalBondltqEYLVLVBGUL3371-03-77 10:41:00 Test Item Value Reference Range Interpretation Comments Segs (test code = Segs) 87.0 45.0-75.0 H [facility] HospitalTcgwdmpDVTPAKPCMA7796-26-96 10:41:00 Test Item Value Reference Range Interpretation Comments Basophils (test code = Basophils) 0.1 <=1.0 N [facility] HospitalJgvvnmvVFPIVFUQZC7782-00-62 10:41:00 Test Item Value Reference Range Interpretation Comments Monocytes (test code = Monocytes) 4.2 2.0-12.0 N [facility] HospitalHkqvhszRSTNSDONYV7120-94-67 10:41:00 Test Item Value Reference Range Interpretation Comments Lymphocytes (test code = Lymphocytes) 8.7 20.0-40.0 L [facility] CenterFqwpundUIMUPUWUU5542-66-55 10:41:00 Test Item Value Reference Range Interpretation Comments Magnesium Lvl (test code = Magnesium 1.7 1.8-2.4 L Lvl) [facility] CenterXbjbbsbCKRIOWHSG6580-75-55 10:41:00 Test Item Value Reference Range Interpretation Comments AGAP (test code = AGAP) 15.1 10.0-20.0 N [facility] CenterSbjrhvaBKXXIMUHH3053-51-23 10:41:00 Test Item Value Reference Range Interpretation Comments eGFR (test code = eGFR) 90 [facility] CenterNqxjsszQVFXWFYPW9862-75-22 10:41:00 Test Item Value Reference Range Interpretation Comments Glucose Lvl (test code = Glucose Lvl) 114 70-99 H [facility] CenterMepffsnXXDHJCBTR3292-96-30 10:41:00 Test Item Value Reference Range Interpretation Comments CO2 (test code = CO2) 25 24-32 N [facility] CenterVguwbhgTNNBBFNNG5913-97-47 10:41:00 Test Item Value Reference Range Interpretation Comments Calcium Lvl (test code = Calcium Lvl) 8.7 8.5-10.5 N [facility] CenterOctejvsZUTEWFZOR7633-56-60 10:41:00 Test Item Value Reference Range Interpretation Comments Potassium Lvl (test code = Potassium 4.1 3.5-5.1 N Lvl) [facility] CenterZbiwasjGDLBDBBUT6874-24-69 10:41:00 Test Item Value Reference Range Interpretation Comments Chloride Lvl (test code = Chloride Lvl) 108 95-109 N [facility] CenterNduvpzxTANRHDIXD4784-01-78 10:41:00 Test Item Value Reference Range Interpretation Comments Sodium Lvl (test code = Sodium Lvl) 144 135-145 N [facility] CenterKatnnwaZGENFCYXG2564-76-95 10:41:00 Test Item Value Reference Range Interpretation Comments Creatinine Lvl (test code = Creatinine 0.9 0.5-1.4 N Lvl) [facility] CenterWyjdmkwQHXZAESQJ0014-10-77 10:41:00 Test Item Value Reference Range Interpretation Comments BUN (test code = BUN) 13 7-22 N [facility] CenterIgtczqkMFCFVAQMM0282-60-44 10:41:00 Test Item Value Reference Range Interpretation Comments Phosphorus (test code = Phosphorus) 2.7 2.5-4.5 N [facility] CenterDsssmmaTSTAJKGCW4603-59-18 10:41:00 Test Item Value Reference Range Interpretation Comments Ca Ion WB (test code = Ca Ion WB) 1.09 1.05-1.25 N [facility] CenterQhnmgbqPPXPKOZCE9586-61-32 10:41:00 Test Item Value Reference Range Interpretation Comments Ca Norm WB (test code = Ca Norm WB) 1.11 1.05-1.25 N [facility] HospitalZhblmuuFSRGKTNFGO1824-45-88 10:41:00 Test Item Value Reference Range Interpretation Comments MPV (test code = MPV) 9.3 7.4-10.4 N [facility] HospitalMiwskstIOZCQYWDJV8425-77-00 10:41:00 Test Item Value Reference Range Interpretation Comments Platelet (test code = Platelet) 214 133-450 N [facility] HospitalVuheoruGSGMTBOTBQ8872-41-75 10:41:00 Test Item Value Reference Range Interpretation Comments RDW (test code = RDW) 12.2 11.5-14.5 N [facility] HospitalUzaghumAZDQTFPVID7940-28-63 10:41:00 Test Item Value Reference Range Interpretation Comments Hct (test code = Hct) 30.8 36.0-48.0 L [facility] HospitalCzzbxinHBXJZMLPCJ5683-56-89 10:41:00 Test Item Value Reference Range Interpretation Comments MCH (test code = MCH) 30.7 pg 27.0-31.0 N [facility] HospitalHdzzhbnFNKJZYYLHQ3121-93-63 10:41:00 Test Item Value Reference Range Interpretation Comments MCV (test code = MCV) 90.8 81.0-99.0 N [facility] HospitalQgdgwqzEHETRXOLNZ9240-35-25 10:41:00 Test Item Value Reference Range Interpretation Comments MCHC (test code = MCHC) 33.9 32.0-36.0 N [facility] HospitalIkkynpmICSLWTFQTI5187-87-65 10:41:00 Test Item Value Reference Range Interpretation Comments WBC X 10x3 (test code = WBC X 10x3) 17.7 3.7-10.4 H [facility] HospitalErewfirCJBFKBAARN4046-70-48 10:41:00 Test Item Value Reference Range Interpretation Comments Hgb (test code = Hgb) 10.4 12.0-16.0 L [facility] HospitalSzjuswvGBQMWWSBUI7524-46-37 10:41:00 Test Item Value Reference Range Interpretation Comments RBC X 10x6 (test code = RBC X 10x6) 3.39 4.20-5.40 L [facility] HospitalAzkaurcTYDIVUGILK2393-94-48 10:41:00 Test Item Value Reference Range Interpretation Comments Segs-Bands # (test code = Segs-Bands #) 15.4 1.5-8.1 H [facility] HospitalXstuswyXSICOFIUOL2134-51-66 10:41:00 Test Item Value Reference Range Interpretation Comments Lymphocytes # (test code = Lymphocytes 1.5 1.0-5.5 N #) [facility] HospitalFdrafmeELWCOTHWAC3278-74-02 10:41:00 Test Item Value Reference Range Interpretation Comments Monocytes # (test code 0.7 See_Comment N [Aut omated message] The = Monocytes #) system which generated this result tra nsmitted reference range : <=0.8. The reference r joan was not used to int erpret this result as normal/abnormal . [facility] GLUCOSE NUKCVNM7878-42-96 00:31:00 Test Item Value Reference Range Interpretation Comments Glucose POC (test code = Glucose POC) 136 70-99 H [facility] GLUCOSE YBEBVZK3844-50-47 00:31:00 Test Item Value Reference Range Interpretation Comments Gluc POC Comment 1 (test code = Notify RN/MD Gluc POC Comment 1) [facility] GLUCOSE NDIYSUS7297-34-93 00:31:00 Test Item Value Reference Range Interpretation Comments Glucose POC (test code = Glucose POC) 136 70-99 H [facility] GLUCOSE HQYTLAX5931-69-01 00:31:00 Test Item Value Reference Range Interpretation Comments Gluc POC Comment 1 (test code = Notify RN/MD Gluc POC Comment 1) [facility] GLUCOSE FNSGLEP3710-24-93 00:31:00 Test Item Value Reference Range Interpretation Comments Glucose POC (test code = Glucose POC) 136 70-99 H [facility] GLUCOSE KTPEBLU9768-46-73 00:31:00 Test Item Value Reference Range Interpretation Comments Gluc POC Comment 1 (test code = Notify RN/MD Gluc POC Comment 1) [facility] GLUCOSE OYHBBHD5732-50-10 00:31:00 Test Item Value Reference Range Interpretation Comments Glucose POC (test code = Glucose POC) 136 70-99 H [facility] GLUCOSE HOQXZWN3637-74-59 00:31:00 Test Item Value Reference Range Interpretation Comments Gluc POC Comment 1 (test code = Notify RN/MD Gluc POC Comment 1) [facility] GLUCOSE LZWOLGN2471-52-71 17:02:00 Test Item Value Reference Range Interpretation Comments Glucose POC (test code = Glucose POC) 130 70-99 H [facility] GLUCOSE ISHTOMU7744-77-99 17:02:00 Test Item Value Reference Range Interpretation Comments Glucose POC (test code = Glucose POC) 130 70-99 H [facility] GLUCOSE GHFHREW9791-52-49 17:02:00 Test Item Value Reference Range Interpretation Comments Glucose POC (test code = Glucose POC) 130 70-99 H [facility] GLUCOSE DJAMZPS7850-43-76 17:02:00 Test Item Value Reference Range Interpretation Comments Glucose POC (test code = Glucose POC) 130 70-99 H [facility] GLUCOSE DDRJTKY7824-44-19 08:33:00 Test Item Value Reference Range Interpretation Comments Gluc POC Comment 1 (test code = Notify RN/MD Gluc POC Comment 1) [facility] GLUCOSE [id number] 08:33:00 Test Item Value Reference Range Interpretation Comments Gluc POC Comment 1 (test code = Notify RN/MD Gluc POC Comment 1) [facility] GLUCOSE PUDGOZD7716-36-25 08:33:00 Test Item Value Reference Range Interpretation Comments Gluc POC Comment 1 (test code = Notify RN/MD Gluc POC Comment 1) [facility] GLUCOSE NVMLLTS5833-07-05 08:33:00 Test Item Value Reference Range Interpretation Comments Gluc POC Comment 1 (test code = Notify RN/MD Gluc POC Comment 1) [facility] CenterSqhjvgcNFCWMBTRC2143-74-20 05:50:00 Test Item Value Reference Range Interpretation Comments Magnesium Lvl (test code = Magnesium 1.7 1.8-2.4 L Lvl) [facility] CenterUlwwrijRILOSJTHM4544-36-59 05:50:00 Test Item Value Reference Range Interpretation Comments eGFR (test code = eGFR) 104 [facility] CenterUutcwvrOCFLBMWWZ6421-34-38 05:50:00 Test Item Value Reference Range Interpretation Comments AGAP (test code = AGAP) 17.7 10.0-20.0 N [facility] CenterLqtujasWAVXAMNXD2014-34-46 05:50:00 Test Item Value Reference Range Interpretation Comments Calcium Lvl (test code = Calcium Lvl) 8.1 8.5-10.5 L [facility] CenterIxvslccEBWSZMXNX5881-04-64 05:50:00 Test Item Value Reference Range Interpretation Comments CO2 (test code = CO2) 23 24-32 L [facility] CenterYnecubsVBMHQKYWD2409-92-85 05:50:00 Test Item Value Reference Range Interpretation Comments Chloride Lvl (test code = Chloride Lvl) 108 95-109 N [facility] CenterSmsfiizXGVPLITPO0514-89-34 05:50:00 Test Item Value Reference Range Interpretation Comments Potassium Lvl (test code = Potassium 3.7 3.5-5.1 N Lvl) [facility] CenterHydfwbpKDKBKVWZQ3701-73-78 05:50:00 Test Item Value Reference Range Interpretation Comments Sodium Lvl (test code = Sodium Lvl) 145 135-145 N [facility] CenterNxhfxdwPZOCWVZHA8766-47-30 05:50:00 Test Item Value Reference Range Interpretation Comments Creatinine Lvl (test code = Creatinine 0.8 0.5-1.4 N Lvl) [facility] CenterIotlbubDTXJHVYKO1219-04-50 05:50:00 Test Item Value Reference Range Interpretation Comments BUN (test code = BUN) 9 7-22 N [facility] CenterXnijwcrLMODXGMYR4550-68-12 05:50:00 Test Item Value Reference Range Interpretation Comments Glucose Lvl (test code = Glucose Lvl) 118 70-99 H [facility] CenterSxnfjkfGIAUIKKUA5188-07-99 05:50:00 Test Item Value Reference Range Interpretation Comments Phosphorus (test code = Phosphorus) 2.5 2.5-4.5 N [facility] CenterFucwyoeHSHAAXBTG7814-84-08 05:50:00 Test Item Value Reference Range Interpretation Comments Ca Ion WB (test code = Ca Ion WB) 1.13 1.05-1.25 N [facility] CenterSgtgzwhYVMTZHQSK3725-72-40 05:50:00 Test Item Value Reference Range Interpretation Comments Ca Norm WB (test code = Ca Norm WB) 1.13 1.05-1.25 N [facility]QrhqxweFUOJKUHDWF2067-43-62 05:50:00 Test Item Value Reference Range Interpretation Comments Monocytes # (test code 1.4 See_Comment H [Aut omated message] The = Monocytes #) system which generated this result tra nsmitted reference range : <=0.8. The reference r joan was not used to int erpret this result as normal/abnormal . [facility]YsuanpuRAJHTAYUXY5956-61-97 05:50:00 Test Item Value Reference Range Interpretation Comments Lymphocytes # (test code = Lymphocytes 1.6 1.0-5.5 N #) [facility]NfikhmhLOCNBYEMHQ9894-85-68 05:50:00 Test Item Value Reference Range Interpretation Comments Segs-Bands # (test code = Segs-Bands #) 13.8 1.5-8.1 H [facility] HospitalTplvvmhTAAXSCLSNR6270-30-53 05:50:00 Test Item Value Reference Range Interpretation Comments Basophils (test code = 0.1 See_Comment N [Aut omated message] The Basophils) system which ge nerated this result tra nsmitted reference range : <=1.0. The reference r joan was not used to int erpret this result as normal/abnormal . [facility] HospitalUocehxiRYTCWAPODX8512-53-18 05:50:00 Test Item Value Reference Range Interpretation Comments Monocytes (test code = Monocytes) 8.3 2.0-12.0 N [facility] HospitalLtrqnpgSYRQRJYFTD5356-95-77 05:50:00 Test Item Value Reference Range Interpretation Comments Lymphocytes (test code = Lymphocytes) 9.6 20.0-40.0 L [facility] HospitalSolmpwiDMCQSRBCLR0584-52-00 05:50:00 Test Item Value Reference Range Interpretation Comments Segs (test code = Segs) 82.0 45.0-75.0 H [facility] HospitalIwogxbkNQHUPSGAYS4115-55-53 05:50:00 Test Item Value Reference Range Interpretation Comments INR (test code = INR) 1.18 0.85-1.17 H [facility] HospitalLczxvtzNPYTZFDKWM4091-69-91 05:50:00 Test Item Value Reference Range Interpretation Comments PROTIME (test code = PROTIME) 14.9 s 12.0-14.7 H [facility] HospitalDxpqpgqAEQYCPAIUW7524-39-89 05:50:00 Test Item Value Reference Range Interpretation Comments aPTT (test code = aPTT) 26.1 s 22.9-35.8 N [facility] HospitalPohrvruXYWBMKFQBY2000-41-12 05:50:00 Test Item Value Reference Range Interpretation Comments Hgb (test code = Hgb) 9.8 12.0-16.0 L [facility] HospitalPocjnxbHYSNRKRFQI2349-64-04 05:50:00 Test Item Value Reference Range Interpretation Comments RBC X 10x6 (test code = RBC X 10x6) 3.25 4.20-5.40 L [facility] HospitalXiwhgcgTNZVAGXRWL4551-16-67 05:50:00 Test Item Value Reference Range Interpretation Comments WBC X 10x3 (test code = WBC X 10x3) 16.9 3.7-10.4 H [facility] HospitalTfoivaqDOGLXGGZRV3596-83-69 05:50:00 Test Item Value Reference Range Interpretation Comments Hct (test code = Hct) 29.5 36.0-48.0 L [facility] HospitalMfsebjdUXZYNWMUYE7321-75-58 05:50:00 Test Item Value Reference Range Interpretation Comments MCV (test code = MCV) 90.8 81.0-99.0 N [facility] HospitalXutoracTAWFTUHPOZ6375-14-10 05:50:00 Test Item Value Reference Range Interpretation Comments MPV (test code = MPV) 9.2 7.4-10.4 N [facility] HospitalMfmsfngCNTORAUOBJ8960-71-79 05:50:00 Test Item Value Reference Range Interpretation Comments RDW (test code = RDW) 11.9 11.5-14.5 N [facility] HospitalXfkbvrdSFSWMOVGAP1530-49-17 05:50:00 Test Item Value Reference Range Interpretation Comments MCHC (test code = MCHC) 33.1 32.0-36.0 N [facility] HospitalGdgedvyMXWJDSBUCS9166-99-77 05:50:00 Test Item Value Reference Range Interpretation Comments Platelet (test code = Platelet) 213 133-450 N [facility] HospitalYlqvltrMKRDLNSKUB5562-33-22 05:50:00 Test Item Value Reference Range Interpretation Comments MCH (test code = MCH) 30.0 pg 27.0-31.0 N [facility] CenterRosrdvvBVCZJRKDT5350-91-02 05:50:00 Test Item Value Reference Range Interpretation Comments Magnesium Lvl (test code = Magnesium 1.7 1.8-2.4 L Lvl) [facility] CenterDmotfzkGUSKQLPLQ4820-52-87 05:50:00 Test Item Value Reference Range Interpretation Comments eGFR (test code = eGFR) 104 [facility] CenterKlksytiXQAABNWQN3842-03-98 05:50:00 Test Item Value Reference Range Interpretation Comments AGAP (test code = AGAP) 17.7 10.0-20.0 N [facility] CenterIzhlgpuFKVRSMRSV3681-63-41 05:50:00 Test Item Value Reference Range Interpretation Comments Calcium Lvl (test code = Calcium Lvl) 8.1 8.5-10.5 L [facility] CenterTpcvhrjTQBSYPBUX8402-63-43 05:50:00 Test Item Value Reference Range Interpretation Comments CO2 (test code = CO2) 23 24-32 L [facility] CenterUdmyjphYBOELTBSR8616-04-42 05:50:00 Test Item Value Reference Range Interpretation Comments Chloride Lvl (test code = Chloride Lvl) 108 95-109 N [facility] CenterIkyodxfOPEYIDZIR5203-98-39 05:50:00 Test Item Value Reference Range Interpretation Comments Potassium Lvl (test code = Potassium 3.7 3.5-5.1 N Lvl) [facility] CenterKhgzaauWRCKCJPPL5124-53-64 05:50:00 Test Item Value Reference Range Interpretation Comments Sodium Lvl (test code = Sodium Lvl) 145 135-145 N [facility] CenterGguxfclFXHVYXGLF8417-56-59 05:50:00 Test Item Value Reference Range Interpretation Comments Creatinine Lvl (test code = Creatinine 0.8 0.5-1.4 N Lvl) [facility] CenterMvaljcbXXHMXSJAS8238-23-51 05:50:00 Test Item Value Reference Range Interpretation Comments BUN (test code = BUN) 9 7-22 N [facility] CenterFojihnoVCFFVDNWX3421-20-67 05:50:00 Test Item Value Reference Range Interpretation Comments Glucose Lvl (test code = Glucose Lvl) 118 70-99 H [facility] CenterRpmiecoFZWLONDJM9440-91-58 05:50:00 Test Item Value Reference Range Interpretation Comments Phosphorus (test code = Phosphorus) 2.5 2.5-4.5 N [facility] CenterTtgqfagLRSYDAZIH7112-29-20 05:50:00 Test Item Value Reference Range Interpretation Comments Ca Ion WB (test code = Ca Ion WB) 1.13 1.05-1.25 N [facility] CenterOcnebhyAAGCQLCZF7558-10-78 05:50:00 Test Item Value Reference Range Interpretation Comments Ca Norm WB (test code = Ca Norm WB) 1.13 1.05-1.25 N [facility] HospitalPabwewoIJVJBLFOHG4833-61-48 05:50:00 Test Item Value Reference Range Interpretation Comments Monocytes # (test code 1.4 See_Comment H [Aut omated message] The = Monocytes #) system which generated this result tra nsmitted reference range : <=0.8. The reference r joan was not used to int erpret this result as normal/abnormal . [facility] HospitalCtakzyhAZHHLWASSM9049-83-53 05:50:00 Test Item Value Reference Range Interpretation Comments Lymphocytes # (test code = Lymphocytes 1.6 1.0-5.5 N #) [facility] HospitalTwvspthOOHORJFYTN6725-47-83 05:50:00 Test Item Value Reference Range Interpretation Comments Segs-Bands # (test code = Segs-Bands #) 13.8 1.5-8.1 H [facility] HospitalXbkhtnlVKVFZEBWLW2429-74-44 05:50:00 Test Item Value Reference Range Interpretation Comments Basophils (test code = 0.1 See_Comment N [Aut omated message] The Basophils) system which ge nerated this result tra nsmitted reference range : <=1.0. The reference r joan was not used to int erpret this result as normal/abnormal . [facility] HospitalUsasxkqVTMWNJBAMW8784-97-34 05:50:00 Test Item Value Reference Range Interpretation Comments Monocytes (test code = Monocytes) 8.3 2.0-12.0 N [facility] HospitalBlcacilKXNWVLWLVZ9842-48-66 05:50:00 Test Item Value Reference Range Interpretation Comments Lymphocytes (test code = Lymphocytes) 9.6 20.0-40.0 L [facility] HospitalSgqsyznGMLSQLLOKM6313-75-85 05:50:00 Test Item Value Reference Range Interpretation Comments Segs (test code = Segs) 82.0 45.0-75.0 H [facility] HospitalGrztkaoUVZKNEMBXM1904-39-04 05:50:00 Test Item Value Reference Range Interpretation Comments INR (test code = INR) 1.18 0.85-1.17 H [facility] HospitalOsudfsgCACROHKUWD6419-27-39 05:50:00 Test Item Value Reference Range Interpretation Comments PROTIME (test code = PROTIME) 14.9 s 12.0-14.7 H [facility] HospitalVpkibibRJHFCTKPZR6412-62-11 05:50:00 Test Item Value Reference Range Interpretation Comments aPTT (test code = aPTT) 26.1 s 22.9-35.8 N [facility] HospitalUogivpkWAYEYDPJNZ1626-91-40 05:50:00 Test Item Value Reference Range Interpretation Comments Hgb (test code = Hgb) 9.8 12.0-16.0 L [facility] HospitalEkbszblMQATVZHMEC4960-34-48 05:50:00 Test Item Value Reference Range Interpretation Comments RBC X 10x6 (test code = RBC X 10x6) 3.25 4.20-5.40 L [facility] HospitalXqzgxosWHOYWBWIBX0740-04-48 05:50:00 Test Item Value Reference Range Interpretation Comments WBC X 10x3 (test code = WBC X 10x3) 16.9 3.7-10.4 H [facility] HospitalQezonqpSPKZPIABNP5797-05-22 05:50:00 Test Item Value Reference Range Interpretation Comments Hct (test code = Hct) 29.5 36.0-48.0 L [facility] HospitalQctzlpjSLGMJSIRYB9975-84-50 05:50:00 Test Item Value Reference Range Interpretation Comments MCV (test code = MCV) 90.8 81.0-99.0 N [facility] HospitalNrpqvxsKYGVKEMDZO3718-43-01 05:50:00 Test Item Value Reference Range Interpretation Comments MPV (test code = MPV) 9.2 7.4-10.4 N [facility] HospitalVctdhgcUCIHNHAWEP5763-94-58 05:50:00 Test Item Value Reference Range Interpretation Comments RDW (test code = RDW) 11.9 11.5-14.5 N [facility] HospitalEchujbhWDPMAXUIHZ6588-52-53 05:50:00 Test Item Value Reference Range Interpretation Comments MCHC (test code = MCHC) 33.1 32.0-36.0 N [facility] HospitalEezskhxBCUPMXRGYT9230-20-74 05:50:00 Test Item Value Reference Range Interpretation Comments Platelet (test code = Platelet) 213 133-450 N [facility] HospitalRvrmrpcETEOMIUHFL7287-66-53 05:50:00 Test Item Value Reference Range Interpretation Comments MCH (test code = MCH) 30.0 pg 27.0-31.0 N [facility] CenterDceqhjgQNCYREDLJ6226-96-10 05:50:00 Test Item Value Reference Range Interpretation Comments Magnesium Lvl (test code = Magnesium 1.7 1.8-2.4 L Lvl) [facility] CenterKvrcmawPDUOSSGWW5198-57-45 05:50:00 Test Item Value Reference Range Interpretation Comments eGFR (test code = eGFR) 104 [facility] CenterMfmxriuNTOLNCGRG5755-24-14 05:50:00 Test Item Value Reference Range Interpretation Comments AGAP (test code = AGAP) 17.7 10.0-20.0 N [facility] CenterCqmjawyMTZUKLVJZ7128-29-13 05:50:00 Test Item Value Reference Range Interpretation Comments Calcium Lvl (test code = Calcium Lvl) 8.1 8.5-10.5 L [facility] CenterGyztwcvDYUBKQPNM3507-41-86 05:50:00 Test Item Value Reference Range Interpretation Comments CO2 (test code = CO2) 23 24-32 L [facility] CenterMjhgwsiMJFRTCLWQ4959-87-92 05:50:00 Test Item Value Reference Range Interpretation Comments Chloride Lvl (test code = Chloride Lvl) 108 95-109 N [facility] CenterWhupkbnKXGKYXKLI0893-66-97 05:50:00 Test Item Value Reference Range Interpretation Comments Potassium Lvl (test code = Potassium 3.7 3.5-5.1 N Lvl) [facility] CenterLtiabhwQSVVSOQCW2129-31-09 05:50:00 Test Item Value Reference Range Interpretation Comments Sodium Lvl (test code = Sodium Lvl) 145 135-145 N [facility] CenterXhuglomYWJHPEFOO2780-80-12 05:50:00 Test Item Value Reference Range Interpretation Comments Creatinine Lvl (test code = Creatinine 0.8 0.5-1.4 N Lvl) [facility] CenterKtmvhgnBQMSQBENA0699-53-29 05:50:00 Test Item Value Reference Range Interpretation Comments BUN (test code = BUN) 9 7-22 N [facility] CenterXzxgyxlGVSYEYFBW3392-60-79 05:50:00 Test Item Value Reference Range Interpretation Comments Glucose Lvl (test code = Glucose Lvl) 118 70-99 H [facility] CenterBaeeehlAUFWIXSML8014-09-30 05:50:00 Test Item Value Reference Range Interpretation Comments Phosphorus (test code = Phosphorus) 2.5 2.5-4.5 N [facility] CenterUaatgnpALBYFJVNJ2468-56-25 05:50:00 Test Item Value Reference Range Interpretation Comments Ca Ion WB (test code = Ca Ion WB) 1.13 1.05-1.25 N [facility] CenterNmdhuziAAQTSHLTV8956-94-47 05:50:00 Test Item Value Reference Range Interpretation Comments Ca Norm WB (test code = Ca Norm WB) 1.13 1.05-1.25 N [facility] HospitalScoeizyDZHXRNLBLT3916-66-65 05:50:00 Test Item Value Reference Range Interpretation Comments Monocytes # (test code 1.4 See_Comment H [Aut omated message] The = Monocytes #) system which generated this result tra nsmitted reference range : <=0.8. The reference r joan was not used to int erpret this result as normal/abnormal . [facility] HospitalVkaajcuIFXPXVYXAI3146-05-17 05:50:00 Test Item Value Reference Range Interpretation Comments Lymphocytes # (test code = Lymphocytes 1.6 1.0-5.5 N #) [facility] HospitalBfxfssiMKIPZDGSHJ1156-68-68 05:50:00 Test Item Value Reference Range Interpretation Comments Segs-Bands # (test code = Segs-Bands #) 13.8 1.5-8.1 H [facility] HospitalOiowfprGRYLMHSNDV6308-09-86 05:50:00 Test Item Value Reference Range Interpretation Comments Basophils (test code = 0.1 See_Comment N [Aut omated message] The Basophils) system which ge nerated this result tra nsmitted reference range : <=1.0. The reference r joan was not used to int erpret this result as normal/abnormal . [facility] HospitalOabxevaBJRIFPWQWG7528-66-36 05:50:00 Test Item Value Reference Range Interpretation Comments Monocytes (test code = Monocytes) 8.3 2.0-12.0 N [facility] HospitalIajzvtgKYRLWYBWNP6758-97-76 05:50:00 Test Item Value Reference Range Interpretation Comments Lymphocytes (test code = Lymphocytes) 9.6 20.0-40.0 L [facility] HospitalAisvkwhRFYUBWAIVZ5140-24-80 05:50:00 Test Item Value Reference Range Interpretation Comments Segs (test code = Segs) 82.0 45.0-75.0 H [facility] HospitalXoqzcrvAREFERUETM9560-01-08 05:50:00 Test Item Value Reference Range Interpretation Comments INR (test code = INR) 1.18 0.85-1.17 H [facility] HospitalSwdvlfzNAKIRUJLTA5741-16-69 05:50:00 Test Item Value Reference Range Interpretation Comments PROTIME (test code = PROTIME) 14.9 s 12.0-14.7 H [facility] HospitalXkcwwncQSTMWWBKTR3567-32-37 05:50:00 Test Item Value Reference Range Interpretation Comments aPTT (test code = aPTT) 26.1 s 22.9-35.8 N [facility] HospitalDemqgpdVBBWKJSAJD6473-98-79 05:50:00 Test Item Value Reference Range Interpretation Comments Hgb (test code = Hgb) 9.8 12.0-16.0 L [facility] HospitalIfmtcrjXVLXXFYZIU2217-03-78 05:50:00 Test Item Value Reference Range Interpretation Comments RBC X 10x6 (test code = RBC X 10x6) 3.25 4.20-5.40 L [facility] HospitalHtgffuePPBQCAYMTV2298-29-38 05:50:00 Test Item Value Reference Range Interpretation Comments WBC X 10x3 (test code = WBC X 10x3) 16.9 3.7-10.4 H [facility] HospitalGcypjimYJXPRVIOMZ2607-86-65 05:50:00 Test Item Value Reference Range Interpretation Comments Hct (test code = Hct) 29.5 36.0-48.0 L [facility] HospitalRswkcbuJBNCCIFSBP7488-72-98 05:50:00 Test Item Value Reference Range Interpretation Comments MCV (test code = MCV) 90.8 81.0-99.0 N [facility] HospitalDtvdbwxYKMHXGOPWG2619-02-29 05:50:00 Test Item Value Reference Range Interpretation Comments MPV (test code = MPV) 9.2 7.4-10.4 N [facility] HospitalIdtoddmHNWOTURTNW0148-54-41 05:50:00 Test Item Value Reference Range Interpretation Comments RDW (test code = RDW) 11.9 11.5-14.5 N [facility] HospitalOuhabhiEGVOLRPGQF8370-31-79 05:50:00 Test Item Value Reference Range Interpretation Comments MCHC (test code = MCHC) 33.1 32.0-36.0 N [facility] HospitalRsultreUURXPICHXF2062-33-51 05:50:00 Test Item Value Reference Range Interpretation Comments Platelet (test code = Platelet) 213 133-450 N [facility] HospitalBoggvfbKXICHBSNOY8799-55-44 05:50:00 Test Item Value Reference Range Interpretation Comments MCH (test code = MCH) 30.0 pg 27.0-31.0 N [facility] CenterAbmkqjcJBCLHOLPX2574-78-98 05:50:00 Test Item Value Reference Range Interpretation Comments Magnesium Lvl (test code = Magnesium 1.7 1.8-2.4 L Lvl) [facility] CenterTrzozogJAFOYUFCS4768-11-88 05:50:00 Test Item Value Reference Range Interpretation Comments eGFR (test code = eGFR) 104 [facility] CenterQhrrifbGLBBKVZPP8920-91-87 05:50:00 Test Item Value Reference Range Interpretation Comments AGAP (test code = AGAP) 17.7 10.0-20.0 N [facility] CenterIslejljUNNRQIGQH7907-20-64 05:50:00 Test Item Value Reference Range Interpretation Comments Calcium Lvl (test code = Calcium Lvl) 8.1 8.5-10.5 L [facility] CenterTlpareoSKHIXSSRK3415-35-70 05:50:00 Test Item Value Reference Range Interpretation Comments CO2 (test code = CO2) 23 24-32 L [facility] CenterYcprmozTHRRBGUKC3814-19-70 05:50:00 Test Item Value Reference Range Interpretation Comments Chloride Lvl (test code = Chloride Lvl) 108 95-109 N [facility] CenterFvsvkaiGHGCZIGSV4863-01-15 05:50:00 Test Item Value Reference Range Interpretation Comments Potassium Lvl (test code = Potassium 3.7 3.5-5.1 N Lvl) [facility] CenterKpqpqmpXCAZZXUGC8996-33-63 05:50:00 Test Item Value Reference Range Interpretation Comments Sodium Lvl (test code = Sodium Lvl) 145 135-145 N [facility] CenterBjzquulZECEPDFBR1734-83-37 05:50:00 Test Item Value Reference Range Interpretation Comments Creatinine Lvl (test code = Creatinine 0.8 0.5-1.4 N Lvl) [facility] CenterLltfslxPSBMEGCZT8975-27-11 05:50:00 Test Item Value Reference Range Interpretation Comments BUN (test code = BUN) 9 7-22 N [facility] CenterHulfolaDPOUCLFEQ5733-66-98 05:50:00 Test Item Value Reference Range Interpretation Comments Glucose Lvl (test code = Glucose Lvl) 118 70-99 H [facility] CenterHngpjghUMAQQRDSE2910-98-40 05:50:00 Test Item Value Reference Range Interpretation Comments Phosphorus (test code = Phosphorus) 2.5 2.5-4.5 N [facility] CenterFnahuivYSPWBMGOX1634-25-78 05:50:00 Test Item Value Reference Range Interpretation Comments Ca Ion WB (test code = Ca Ion WB) 1.13 1.05-1.25 N [facility] CenterTvhdmlmIODONWHIT9853-68-64 05:50:00 Test Item Value Reference Range Interpretation Comments Ca Norm WB (test code = Ca Norm WB) 1.13 1.05-1.25 N [facility] HospitalWblngirUAKFKRMFRT2195-48-23 05:50:00 Test Item Value Reference Range Interpretation Comments Monocytes # (test code = Monocytes #) 1.4 <=0.8 H [facility] HospitalQxgsathXEESURAALT2108-46-31 05:50:00 Test Item Value Reference Range Interpretation Comments Lymphocytes # (test code = Lymphocytes 1.6 1.0-5.5 N #) [facility] HospitalIzkkevaJRECHUIQDF2395-84-95 05:50:00 Test Item Value Reference Range Interpretation Comments Segs-Bands # (test code = Segs-Bands #) 13.8 1.5-8.1 H [facility] HospitalXicyqjgJXKFPCFTLV8544-24-86 05:50:00 Test Item Value Reference Range Interpretation Comments Basophils (test code = Basophils) 0.1 <=1.0 N [facility] HospitalXylpndePRXSUGUXNC5443-08-59 05:50:00 Test Item Value Reference Range Interpretation Comments Monocytes (test code = Monocytes) 8.3 2.0-12.0 N [facility] HospitalHmqkwooSODRZVGVHV2585-62-39 05:50:00 Test Item Value Reference Range Interpretation Comments Lymphocytes (test code = Lymphocytes) 9.6 20.0-40.0 L [facility] HospitalRdlcsugUGPBKSJBWL9090-01-41 05:50:00 Test Item Value Reference Range Interpretation Comments Segs (test code = Segs) 82.0 45.0-75.0 H [facility] HospitalQthzurdQIZGZJQSFW7317-98-58 05:50:00 Test Item Value Reference Range Interpretation Comments INR (test code = INR) 1.18 0.85-1.17 H [facility] HospitalBtfhjxmPFUHHEUXUL3941-15-47 05:50:00 Test Item Value Reference Range Interpretation Comments PROTIME (test code = PROTIME) 14.9 s 12.0-14.7 H [facility] HospitalJwglnedOLWURAQODY7914-47-69 05:50:00 Test Item Value Reference Range Interpretation Comments aPTT (test code = aPTT) 26.1 s 22.9-35.8 N [facility] HospitalIyziqdhYCGXEFQUCB7574-72-40 05:50:00 Test Item Value Reference Range Interpretation Comments Hgb (test code = Hgb) 9.8 12.0-16.0 L [facility] HospitalYxkdjvlNMAZFPVFML3921-31-94 05:50:00 Test Item Value Reference Range Interpretation Comments RBC X 10x6 (test code = RBC X 10x6) 3.25 4.20-5.40 L [facility] HospitalAyeqoerMXMXKQCPNY7392-56-05 05:50:00 Test Item Value Reference Range Interpretation Comments WBC X 10x3 (test code = WBC X 10x3) 16.9 3.7-10.4 H [facility] HospitalGuqnsecPAOGGCLOXI4294-62-07 05:50:00 Test Item Value Reference Range Interpretation Comments Hct (test code = Hct) 29.5 36.0-48.0 L [facility] HospitalAirsxinCERKQKEXOJ1007-15-04 05:50:00 Test Item Value Reference Range Interpretation Comments MCV (test code = MCV) 90.8 81.0-99.0 N [facility]HppcrdlOPBEWACKPJ7559-51-87 05:50:00 Test Item Value Reference Range Interpretation Comments MPV (test code = MPV) 9.2 7.4-10.4 N [facility] HealthGgcywalIXAWJAJUQN6413-33-00 05:50:00 Test Item Value Reference Range Interpretation Comments RDW (test code = RDW) 11.9 11.5-14.5 N [facility] HealthPurgcfnURNHDTZZWN4503-11-30 05:50:00 Test Item Value Reference Range Interpretation Comments MCHC (test code = MCHC) 33.1 32.0-36.0 N [facility] HealthPufsdzgBTEKMHMBBS8048-52-16 05:50:00 Test Item Value Reference Range Interpretation Comments Platelet (test code = Platelet) 213 133-450 N [facility] HealthDbbxnezYJXPFIFKII1439-79-92 05:50:00 Test Item Value Reference Range Interpretation Comments MCH (test code = MCH) 30.0 pg 27.0-31.0 N [facility] GLUCOSE MNFROXV8258-41-51 04:59:00 Test Item Value Reference Range Interpretation Comments Gluc POC Comment 1 (test code = Notify RN/MD Gluc POC Comment 1) [facility] GLUCOSE KZITKKO3398-02-96 04:59:00 Test Item Value Reference Range Interpretation Comments Gluc POC Comment 1 (test code = Notify RN/MD Gluc POC Comment 1) [facility] GLUCOSE RGMUQZE4752-47-24 04:59:00 Test Item Value Reference Range Interpretation Comments Gluc POC Comment 1 (test code = Notify RN/MD Gluc POC Comment 1) [facility] GLUCOSE MGHQYMT2994-03-86 04:59:00 Test Item Value Reference Range Interpretation Comments Gluc POC Comment 1 (test code = Notify RN/MD Gluc POC Comment 1) [facility] - ZMFZWUDC5014-75-94 21:58:00 Test Item Value Reference Range Interpretation Comments MRSA by PCR (test Negative 1(05/09/2013 N code = MRSA by PCR) 16:58:00) [facility]DnvfmbgREFBHLJLK5368-63-79 21:58:00 Test Item Value Reference Range Interpretation Comments eGFR (test code = eGFR) 79 [facility]DilrdxsHHWQERBQA1293-41-21 21:58:00 Test Item Value Reference Range Interpretation Comments AGAP (test code = AGAP) 20.7 10.0-20.0 H [facility] CenterKyhfykmZQVTCHEMK6169-17-43 21:58:00 Test Item Value Reference Range Interpretation Comments Chloride Lvl (test code = Chloride Lvl) 106 95-109 N [facility] CenterGuwoyglDPVNKGDEL0824-03-67 21:58:00 Test Item Value Reference Range Interpretation Comments CO2 (test code = CO2) 19 24-32 L [facility] CenterJkrwawxXNORMYOIA1533-60-13 21:58:00 Test Item Value Reference Range Interpretation Comments Calcium Lvl (test code = Calcium Lvl) 8.0 8.5-10.5 L [facility] CenterBkmqjkvJXZQPNCXP3734-82-54 21:58:00 Test Item Value Reference Range Interpretation Comments BUN (test code = BUN) 12 7-22 N [facility] CenterZytuhjjEBQZEBVJC5391-36-91 21:58:00 Test Item Value Reference Range Interpretation Comments Creatinine Lvl (test code = Creatinine 1.0 0.5-1.4 N Lvl) [facility] CenterZccpxtsWTTYEHERJ9010-18-77 21:58:00 Test Item Value Reference Range Interpretation Comments Glucose Lvl (test code = Glucose Lvl) 198 70-99 H [facility] CenterTwtuqnuFIRGAOLFA1257-04-66 21:58:00 Test Item Value Reference Range Interpretation Comments Sodium Lvl (test code = Sodium Lvl) 142 135-145 N [facility] CenterUuiicfsNFSICJRNT2744-46-18 21:58:00 Test Item Value Reference Range Interpretation Comments Potassium Lvl (test code = Potassium 3.7 3.5-5.1 N Lvl) [facility] CenterRevoybpNRCGNKYGJ6905-48-42 21:58:00 Test Item Value Reference Range Interpretation Comments Phosphorus (test code = Phosphorus) 3.4 2.5-4.5 N [facility] CenterLwoeqtjCUKJQIQVJ5154-77-80 21:58:00 Test Item Value Reference Range Interpretation Comments Magnesium Lvl (test code = Magnesium 1.4 1.8-2.4 L Lvl) [facility]dsvgikWXTRDHVAIL6600-30-[facility] 21:58:00 Test Item Value Reference Range Interpretation Comments MPV (test code = MPV) 9.6 7.4-10.4 N [facility] HospitalRskiftuWFLQHUBRVH0634-29-82 21:58:00 Test Item Value Reference Range Interpretation Comments MCV (test code = MCV) 91.9 81.0-99.0 N [facility] HospitalKrkzwtoNDCZYAIPRK8725-35-28 21:58:00 Test Item Value Reference Range Interpretation Comments MCH (test code = MCH) 31.0 pg 27.0-31.0 N [facility] HospitalPqdigdhZGWRNWELWK8831-28-65 21:58:00 Test Item Value Reference Range Interpretation Comments MCHC (test code = MCHC) 33.7 32.0-36.0 N [facility] HospitalDgnjpwmWLYAMUMTTD1082-97-15 21:58:00 Test Item Value Reference Range Interpretation Comments RDW (test code = RDW) 12.1 11.5-14.5 N [facility] HospitalLnmljtgTVQIAHJEQB6731-97-75 21:58:00 Test Item Value Reference Range Interpretation Comments Platelet (test code = Platelet) 253 133-450 N [facility] HospitalPmeystuJZBEBQQVMB2671-55-16 21:58:00 Test Item Value Reference Range Interpretation Comments WBC X 10x3 (test code = WBC X 10x3) 20.8 3.7-10.4 H [facility] HospitalBzlfmbqBXIGPLHBRW0166-32-17 21:58:00 Test Item Value Reference Range Interpretation Comments RBC X 10x6 (test code = RBC X 10x6) 3.54 4.20-5.40 L [facility] HospitalOdzcklpJOBEFQSCAA4901-00-34 21:58:00 Test Item Value Reference Range Interpretation Comments Hgb (test code = Hgb) 11.0 12.0-16.0 L [facility] HospitalPkjcondJADCDOBTFX2567-96-60 21:58:00 Test Item Value Reference Range Interpretation Comments Hct (test code = Hct) 32.5 36.0-48.0 L [facility] HospitalEtlvnkuUNYHNVIYRC2405-93-58 21:58:00 Test Item Value Reference Range Interpretation Comments Lymphocytes # (test code = Lymphocytes 1.1 1.0-5.5 N #) [facility] HospitalIgfnwpuHFVFPOKJIP2076-60-92 21:58:00 Test Item Value Reference Range Interpretation Comments Monocytes # (test code 0.3 See_Comment N [Aut omated message] The = Monocytes #) system which generated this result tra nsmitted reference range : <=0.8. The reference r joan was not used to int erpret this result as normal/abnormal . [facility] HospitalMnxqqmvPNJYKQUDQV4431-02-33 21:58:00 Test Item Value Reference Range Interpretation Comments Segs (test code = Segs) 93.0 45.0-75.0 [facility]RbohgjwIFMXQOGRRP1653-61-77 21:58:00 Test Item Value Reference Range Interpretation Comments Lymphocytes (test code = Lymphocytes) 5.3 20.0-40.0 L [facility] HealthCfdjqktLZCHJKWZRI5664-91-64 21:58:00 Test Item Value Reference Range Interpretation Comments Basophils (test code = 0.1 See_Comment N [Aut omated message] The Basophils) system which ge nerated this result tra nsmitted reference range : <=1.0. The reference r joan was not used to int erpret this result as normal/abnormal . [facility] HospitalIgdkvddRBIBBJEHFA5464-35-48 21:58:00 Test Item Value Reference Range Interpretation Comments Monocytes (test code = Monocytes) 1.6 2.0-12.0 L [facility] HospitalFxjvrefVKWGEKOBUA9581-08-37 21:58:00 Test Item Value Reference Range Interpretation Comments Segs-Bands # (test code = Segs-Bands #) 19.3 1.5-8.1 H [facility]landBACTERIAL - DDSPAFVL1653-00-24 21:58:00 Test Item Value Reference Range Interpretation Comments MRSA by PCR (test Negative 1(05/09/2013 N code = MRSA by PCR) 16:58:00) [facility]landIglhuyqEJUUXRVBC8391-12-10 21:58:00 Test Item Value Reference Range Interpretation Comments eGFR (test code = eGFR) 79 [facility] CenterQqqrwzhTFBWCHTYH1772-58-10 21:58:00 Test Item Value Reference Range Interpretation Comments AGAP (test code = AGAP) 20.7 10.0-20.0 H [facility]FjyqyitKXJCPPPDO4578-62-18 21:58:00 Test Item Value Reference Range Interpretation Comments Chloride Lvl (test code = Chloride Lvl) 106 95-109 N [facility]landUpehrtvVSFQSHSZM4756-66-78 21:58:00 Test Item Value Reference Range Interpretation Comments CO2 (test code = CO2) 19 24-32 L [facility] CenterBmtqbnsABQGGCRQG7485-05-62 21:58:00 Test Item Value Reference Range Interpretation Comments Calcium Lvl (test code = Calcium Lvl) 8.0 8.5-10.5 L [facility] CenterIcqiixgQPJDPGURJ2307-72-00 21:58:00 Test Item Value Reference Range Interpretation Comments BUN (test code = BUN) 12 7-22 N [facility] CenterYeicfqqFUSQMCIPG2904-84-26 21:58:00 Test Item Value Reference Range Interpretation Comments Creatinine Lvl (test code = Creatinine 1.0 0.5-1.4 N Lvl) [facility] CenterOpmhkecFQGCFWBIS8989-38-72 21:58:00 Test Item Value Reference Range Interpretation Comments Glucose Lvl (test code = Glucose Lvl) 198 70-99 H [facility] CenterXwhmmypZQJPRQGHR7808-47-40 21:58:00 Test Item Value Reference Range Interpretation Comments Sodium Lvl (test code = Sodium Lvl) 142 135-145 N [facility] CenterPkfkkydMVZALTRHS3539-18-55 21:58:00 Test Item Value Reference Range Interpretation Comments Potassium Lvl (test code = Potassium 3.7 3.5-5.1 N Lvl) [facility] CenterGigswbmUJNUHJLSH2756-53-49 21:58:00 Test Item Value Reference Range Interpretation Comments Phosphorus (test code = Phosphorus) 3.4 2.5-4.5 N [facility] CenterKyzhforQXKADXAPQ2684-47-22 21:58:00 Test Item Value Reference Range Interpretation Comments Magnesium Lvl (test code = Magnesium 1.4 1.8-2.4 L Lvl) [facility] HospitalWnbsmkqDRWDRYCOSA5382-98-34 21:58:00 Test Item Value Reference Range Interpretation Comments MPV (test code = MPV) 9.6 7.4-10.4 N [facility] HospitalUbdauwkBWQPWODZOY9893-21-72 21:58:00 Test Item Value Reference Range Interpretation Comments MCV (test code = MCV) 91.9 81.0-99.0 N [facility] HospitalEvgzfksYQPBRKBRTU6214-82-67 21:58:00 Test Item Value Reference Range Interpretation Comments MCH (test code = MCH) 31.0 pg 27.0-31.0 N [facility] HospitalLlpxdgeFWZFNGLVHN9197-45-54 21:58:00 Test Item Value Reference Range Interpretation Comments MCHC (test code = MCHC) 33.7 32.0-36.0 N [facility] HospitalAwatgjtSOURPBTHLW2532-13-60 21:58:00 Test Item Value Reference Range Interpretation Comments RDW (test code = RDW) 12.1 11.5-14.5 N [facility] HospitalIybvqhkXTYKANJQVV3334-21-27 21:58:00 Test Item Value Reference Range Interpretation Comments Platelet (test code = Platelet) 253 133-450 N [facility] HospitalVerdynqGJXXLNCRQE8791-76-52 21:58:00 Test Item Value Reference Range Interpretation Comments WBC X 10x3 (test code = WBC X 10x3) 20.8 3.7-10.4 H [facility] HospitalAjdnbkpUQWTDIYTBT9624-26-24 21:58:00 Test Item Value Reference Range Interpretation Comments RBC X 10x6 (test code = RBC X 10x6) 3.54 4.20-5.40 L [facility] HospitalUsijlolCXQLXSBFTN2017-63-16 21:58:00 Test Item Value Reference Range Interpretation Comments Hgb (test code = Hgb) 11.0 12.0-16.0 L [facility] HospitalUajmfyuRBLZATRPPE4961-88-24 21:58:00 Test Item Value Reference Range Interpretation Comments Hct (test code = Hct) 32.5 36.0-48.0 L [facility] HospitalUvxlrdkCQCZMDGZDD0079-60-11 21:58:00 Test Item Value Reference Range Interpretation Comments Lymphocytes # (test code = Lymphocytes 1.1 1.0-5.5 N #) [facility] HospitalAgxubvdOWRBFHXSOL6144-00-38 21:58:00 Test Item Value Reference Range Interpretation Comments Monocytes # (test code 0.3 See_Comment N [Aut omated message] The = Monocytes #) system which generated this result tra nsmitted reference range : <=0.8. The reference r joan was not used to int erpret this result as normal/abnormal . [facility] HospitalOehrehaMXLPTQWLDM2220-22-24 21:58:00 Test Item Value Reference Range Interpretation Comments Segs (test code = Segs) 93.0 45.0-75.0 H [facility] HospitalCdnsiymZSKAYCVLQN9386-58-97 21:58:00 Test Item Value Reference Range Interpretation Comments Lymphocytes (test code = Lymphocytes) 5.3 20.0-40.0 L [facility] HospitalClthhywVIIOUPDYDH9342-76-88 21:58:00 Test Item Value Reference Range Interpretation Comments Basophils (test code = 0.1 See_Comment N [Aut omated message] The Basophils) system which ge nerated this result tra nsmitted reference range : <=1.0. The reference r joan was not used to int erpret this result as normal/abnormal . [facility] HospitalYeackwzNPSCOEWLRV4166-52-24 21:58:00 Test Item Value Reference Range Interpretation Comments Monocytes (test code = Monocytes) 1.6 2.0-12.0 L [facility] HealthGvqjrbpFBYYKKPUJX5035-81-57 21:58:00 Test Item Value Reference Range Interpretation Comments Segs-Bands # (test code = Segs-Bands #) 19.3 1.5-8.1 H [facility]BACT[facility] - CKZUWYKX8436-72-98 21:58:00 Test Item Value Reference Range Interpretation Comments MRSA by PCR (test Negative 1(05/09/2013 N code = MRSA by PCR) 16:58:00) [facility] CenterZwgyxsnKNUQBIMXT2384-72-67 21:58:00 Test Item Value Reference Range Interpretation Comments eGFR (test code = eGFR) 79 [facility] CenterKrinisnDNIMDTTUX8373-57-61 21:58:00 Test Item Value Reference Range Interpretation Comments AGAP (test code = AGAP) 20.7 10.0-20.0 H [facility] CenterZqoslbmKGJDBHKVQ9675-51-51 21:58:00 Test Item Value Reference Range Interpretation Comments Chloride Lvl (test code = Chloride Lvl) 106 95-109 N [facility] CenterDzmfqjjKGVKCZHTG1335-57-75 21:58:00 Test Item Value Reference Range Interpretation Comments CO2 (test code = CO2) 19 24-32 L [facility] CenterKjapvuvGVUITIBUZ5413-67-60 21:58:00 Test Item Value Reference Range Interpretation Comments Calcium Lvl (test code = Calcium Lvl) 8.0 8.5-10.5 L [facility] CenterDaaovguDJHYCGQAN9996-98-29 21:58:00 Test Item Value Reference Range Interpretation Comments BUN (test code = BUN) 12 7-22 N [facility] CenterAarzqdkDQZRLNMHU8670-71-52 21:58:00 Test Item Value Reference Range Interpretation Comments Creatinine Lvl (test code = Creatinine 1.0 0.5-1.4 N Lvl) [facility] CenterXeuzogzZLHNFAUOY2993-54-57 21:58:00 Test Item Value Reference Range Interpretation Comments Glucose Lvl (test code = Glucose Lvl) 198 70-99 H [facility] CenterQmbeshyWRXHQUCBC7443-64-02 21:58:00 Test Item Value Reference Range Interpretation Comments Sodium Lvl (test code = Sodium Lvl) 142 135-145 N [facility] CenterObjewneGKMQLEJOS8810-13-39 21:58:00 Test Item Value Reference Range Interpretation Comments Potassium Lvl (test code = Potassium 3.7 3.5-5.1 N Lvl) [facility] CenterFcbwtlhDHKGWWFIF7337-90-83 21:58:00 Test Item Value Reference Range Interpretation Comments Phosphorus (test code = Phosphorus) 3.4 2.5-4.5 N [facility] CenterMtlilkrJDTQRLOLU5455-19-70 21:58:00 Test Item Value Reference Range Interpretation Comments Magnesium Lvl (test code = Magnesium 1.4 1.8-2.4 L Lvl) [facility] HospitalFzwhphgGSUARCSHWM5075-98-04 21:58:00 Test Item Value Reference Range Interpretation Comments MPV (test code = MPV) 9.6 7.4-10.4 N [facility] HospitalAeqiwhnDJVEZCFZRI4468-71-44 21:58:00 Test Item Value Reference Range Interpretation Comments MCV (test code = MCV) 91.9 81.0-99.0 N [facility] HospitalLywslxuTIVJFDWSRM5286-46-44 21:58:00 Test Item Value Reference Range Interpretation Comments MCH (test code = MCH) 31.0 pg 27.0-31.0 N [facility] HospitalLmctkkaAOZVZXIVQU5747-52-24 21:58:00 Test Item Value Reference Range Interpretation Comments MCHC (test code = MCHC) 33.7 32.0-36.0 N [facility] HospitalLhqmftmYHNBLLTZTC8014-46-01 21:58:00 Test Item Value Reference Range Interpretation Comments RDW (test code = RDW) 12.1 11.5-14.5 N [facility] HospitalKffjscrERSWKVNWKX7381-36-85 21:58:00 Test Item Value Reference Range Interpretation Comments Platelet (test code = Platelet) 253 133-450 N [facility] HospitalUaauuaeXGFLDOEBNB1450-20-01 21:58:00 Test Item Value Reference Range Interpretation Comments WBC X 10x3 (test code = WBC X 10x3) 20.8 3.7-10.4 H [facility] HospitalRuohdbpWKRSMATEZU8407-27-68 21:58:00 Test Item Value Reference Range Interpretation Comments RBC X 10x6 (test code = RBC X 10x6) 3.54 4.20-5.40 L [facility] HospitalYwrvzinQSWWKTFZBH0574-73-27 21:58:00 Test Item Value Reference Range Interpretation Comments Hgb (test code = Hgb) 11.0 12.0-16.0 L [facility] HospitalToqniceHDDEARBVAV8230-46-27 21:58:00 Test Item Value Reference Range Interpretation Comments Hct (test code = Hct) 32.5 36.0-48.0 L [facility] HospitalPqelhorBRSNEFAXHR6067-79-62 21:58:00 Test Item Value Reference Range Interpretation Comments Lymphocytes # (test code = Lymphocytes 1.1 1.0-5.5 N #) [facility] HospitalXtenrbeAWHUIWBPQI4279-18-97 21:58:00 Test Item Value Reference Range Interpretation Comments Monocytes # (test code 0.3 See_Comment N [Aut omated message] The = Monocytes #) system which generated this result tra nsmitted reference range : <=0.8. The reference r joan was not used to int erpret this result as normal/abnormal . [facility] HospitalIrmgupkKKVFYIXYPY6990-21-03 21:58:00 Test Item Value Reference Range Interpretation Comments Segs (test code = Segs) 93.0 45.0-75.0 H [facility] HospitalMbrqyqmIWHCMMNAVG7199-59-14 21:58:00 Test Item Value Reference Range Interpretation Comments Lymphocytes (test code = Lymphocytes) 5.3 20.0-40.0 L [facility] HospitalHxvboqwHYMAYSHDWL4807-52-09 21:58:00 Test Item Value Reference Range Interpretation Comments Basophils (test code = 0.1 See_Comment N [Aut omated message] The Basophils) system which ge nerated this result tra nsmitted reference range : <=1.0. The reference r joan was not used to int erpret this result as normal/abnormal . [facility] HospitalXxafqnjBKVIFJHNGL4862-01-18 21:58:00 Test Item Value Reference Range Interpretation Comments Monocytes (test code = Monocytes) 1.6 2.0-12.0 L [facility] HospitalCpnmglqFLLJDDODUT4876-33-93 21:58:00 Test Item Value Reference Range Interpretation Comments Segs-Bands # (test code = Segs-Bands #) 19.3 1.5-8.1 H [facility]BACT[facility] - RWPTZIYD9751-94-40 21:58:00 Test Item Value Reference Range Interpretation Comments MRSA by PCR (test Negative 1(05/09/2013 N code = MRSA by PCR) 16:58:00) [facility]landWfiyfliHNKSIWQDJ7143-07-70 21:58:00 Test Item Value Reference Range Interpretation Comments eGFR (test code = eGFR) 79 [facility] CenterHomsxakTOCGVOUSK5637-22-93 21:58:00 Test Item Value Reference Range Interpretation Comments AGAP (test code = AGAP) 20.7 10.0-20.0 H [facility] CenterKfhgwkpRQJURHSNU0560-19-05 21:58:00 Test Item Value Reference Range Interpretation Comments Chloride Lvl (test code = Chloride Lvl) 106 95-109 N [facility] CenterZjaqtznRBZZLRDPP3930-09-72 21:58:00 Test Item Value Reference Range Interpretation Comments CO2 (test code = CO2) 19 24-32 L [facility] CenterLweoqkyAPKQKKYAW9481-20-97 21:58:00 Test Item Value Reference Range Interpretation Comments Calcium Lvl (test code = Calcium Lvl) 8.0 8.5-10.5 L [facility] CenterMxndvaqYNEZCXLEY6258-67-36 21:58:00 Test Item Value Reference Range Interpretation Comments BUN (test code = BUN) 12 7-22 N [facility] CenterJfmrrrwARZCYMNMN9462-97-36 21:58:00 Test Item Value Reference Range Interpretation Comments Creatinine Lvl (test code = Creatinine 1.0 0.5-1.4 N Lvl) [facility] CenterIfqiuntPVEZFFCAV7613-40-88 21:58:00 Test Item Value Reference Range Interpretation Comments Glucose Lvl (test code = Glucose Lvl) 198 70-99 H [facility] CenterQcdkdqlUJUNJGMBY9622-04-15 21:58:00 Test Item Value Reference Range Interpretation Comments Sodium Lvl (test code = Sodium Lvl) 142 135-145 N [facility] CenterYoadjziBIGVIEOYI8125-36-05 21:58:00 Test Item Value Reference Range Interpretation Comments Potassium Lvl (test code = Potassium 3.7 3.5-5.1 N Lvl) [facility] CenterKpinoyxVJENSXWZA3450-23-37 21:58:00 Test Item Value Reference Range Interpretation Comments Phosphorus (test code = Phosphorus) 3.4 2.5-4.5 N [facility] CenterItqfokeWEPDYBKCI4229-78-29 21:58:00 Test Item Value Reference Range Interpretation Comments Magnesium Lvl (test code = Magnesium 1.4 1.8-2.4 L Lvl) [facility] HospitalXxeuvasUIYWDQBFSF3987-67-82 21:58:00 Test Item Value Reference Range Interpretation Comments MPV (test code = MPV) 9.6 7.4-10.4 N [facility] HospitalYgdlteeONFHMLVPSZ1890-92-48 21:58:00 Test Item Value Reference Range Interpretation Comments MCV (test code = MCV) 91.9 81.0-99.0 N [facility] HospitalXcpietzGCXWHPDLQU1535-71-48 21:58:00 Test Item Value Reference Range Interpretation Comments MCH (test code = MCH) 31.0 pg 27.0-31.0 N [facility] HospitalAkuanulPVZQJYJULD6050-81-27 21:58:00 Test Item Value Reference Range Interpretation Comments MCHC (test code = MCHC) 33.7 32.0-36.0 N [facility] HospitalCfjoxquOGNILZGHWG8257-49-62 21:58:00 Test Item Value Reference Range Interpretation Comments RDW (test code = RDW) 12.1 11.5-14.5 N [facility] HospitalAcgrmoxIFFLYLDOAE2245-05-19 21:58:00 Test Item Value Reference Range Interpretation Comments Platelet (test code = Platelet) 253 133-450 N [facility] HospitalLbxxoilTVIIYLXKIG5815-28-05 21:58:00 Test Item Value Reference Range Interpretation Comments WBC X 10x3 (test code = WBC X 10x3) 20.8 3.7-10.4 H [facility] HospitalVlrhknwQCWTUCGQYB6482-57-98 21:58:00 Test Item Value Reference Range Interpretation Comments RBC X 10x6 (test code = RBC X 10x6) 3.54 4.20-5.40 L [facility] HospitalAckmldpBJIYTVLGRG3630-64-37 21:58:00 Test Item Value Reference Range Interpretation Comments Hgb (test code = Hgb) 11.0 12.0-16.0 L [facility] HospitalXyxzlihSMYFPLBZYR6627-46-53 21:58:00 Test Item Value Reference Range Interpretation Comments Hct (test code = Hct) 32.5 36.0-48.0 L [facility] HospitalJosywjnADCYTVAYXD3313-07-01 21:58:00 Test Item Value Reference Range Interpretation Comments Lymphocytes # (test code = Lymphocytes 1.1 1.0-5.5 N #) [facility] HospitalJtqtwmeGRLKLWUSJH1854-16-66 21:58:00 Test Item Value Reference Range Interpretation Comments Monocytes # (test code = Monocytes #) 0.3 <=0.8 N [facility] HospitalSqyxmryZPKNPYONGD0885-70-56 21:58:00 Test Item Value Reference Range Interpretation Comments Segs (test code = Segs) 93.0 45.0-75.0 H [facility] HospitalRwpgpsnSSENUOGQKV8435-72-60 21:58:00 Test Item Value Reference Range Interpretation Comments Lymphocytes (test code = Lymphocytes) 5.3 20.0-40.0 L [facility] HospitalKljkmldCHSUEYVXXA3730-43-93 21:58:00 Test Item Value Reference Range Interpretation Comments Basophils (test code = Basophils) 0.1 <=1.0 N [facility] HospitalWgffcxzXVNVFAZRGE1549-66-54 21:58:00 Test Item Value Reference Range Interpretation Comments Monocytes (test code = Monocytes) 1.6 2.0-12.0 L [facility] HospitalRxvvvfjLPUAHHCQXE9155-63-86 21:58:00 Test Item Value Reference Range Interpretation Comments Segs-Bands # (test code = Segs-Bands #) 19.3 1.5-8.1 H [facility] CenterYsvucpvCTOBSHNNL9527-51-34 15:33:00 Test Item Value Reference Range Interpretation Comments POC A Glu (test code = POC A Glu) 109 70-99 H [facility] CenterYvhdkotXLNJVJCDF0598-00-77 15:33:00 Test Item Value Reference Range Interpretation Comments POC A LA (test code = POC A LA) 1.6 0.5-2.2 N [facility] CenterJqjbpqoTAYXGFVYH2220-50-94 15:33:00 Test Item Value Reference Range Interpretation Comments POC A HCO3 (test code = POC A HCO3) 26 22-26 N [facility] CenterVmcdfwsIWCIKTFTQ1890-46-55 15:33:00 Test Item Value Reference Range Interpretation Comments POC A BE (test code = 0 See_Comment N [Auto mated message] The POC A BE) system which ge nerated this result transmit richard reference range : <=2. The reference range was not used to interpr et this result as robbie l/abnormal. [facility] CenterRpapxthANAMZHVQA1679-35-13 15:33:00 Test Item Value Reference Range Interpretation Comments POC A O2 Sat (test code = POC A O2 Sat) 100.0 95.0-100.0 N [facility] CenterHkdoulsDKOSCVEET1708-19-90 15:33:00 Test Item Value Reference Range Interpretation Comments POC A Ca Ion (test code = POC A Ca Ion) 1.09 1.05-1.25 N [facility] CenterVnckuchWWIIWQRCW6827-34-15 15:33:00 Test Item Value Reference Range Interpretation Comments POC A pH (test code = POC A pH) 7.34 7.35-7.45 L [facility] CenterPouoveoCCTFHHJFV8999-11-80 15:33:00 Test Item Value Reference Range Interpretation Comments POC A PO2 (test code = POC A PO2) 417 80-100 H [facility] CenterDbqcgxrRDLHQGXHR5287-84-66 15:33:00 Test Item Value Reference Range Interpretation Comments POC A PCO2 (test code = POC A PCO2) 48 35-45 H [facility] CenterUdrqjlrMXDPILQSN3275-55-02 15:33:00 Test Item Value Reference Range Interpretation Comments POC A Temp (test code = POC A Temp) 37.0 [facility] CenterUzzdromPLCHKNQMK9499-24-30 15:33:00 Test Item Value Reference Range Interpretation Comments POC A Source (test code = POC A Source) ART [facility] CenterBrwjlfwTSNIAQXWE8810-19-05 15:33:00 Test Item Value Reference Range Interpretation Comments POC A Hct (test code = POC A Hct) 34.0 36.0-48.0 L [facility] CenterXnsrdzzZRKYUIUWQ0898-70-84 15:33:00 Test Item Value Reference Range Interpretation Comments POC A Na (test code = POC A Na) 137 135-145 N [facility] CenterBzauzcyHSBVTGHUT9283-08-40 15:33:00 Test Item Value Reference Range Interpretation Comments POC A K (test code = POC A K) 3.9 3.5-5.1 N [facility] CenterWuiegvjUFGIDZEMM7343-62-44 15:33:00 Test Item Value Reference Range Interpretation Comments POC A Glu (test code = POC A Glu) 109 70-99 H [facility] CenterPcpyeenBZRZBNUDI9559-90-29 15:33:00 Test Item Value Reference Range Interpretation Comments POC A LA (test code = POC A LA) 1.6 0.5-2.2 N [facility] CenterBjrxtmcRIHOKXNWJ2129-91-89 15:33:00 Test Item Value Reference Range Interpretation Comments POC A HCO3 (test code = POC A HCO3) 26 22-26 N [facility] CenterRzwdwbpZSLQQJLCP2965-49-70 15:33:00 Test Item Value Reference Range Interpretation Comments POC A BE (test code = 0 See_Comment N [Auto mated message] The POC A BE) system which ge nerated this result transmit richard reference range : <=2. The reference range was not used to interpr et this result as robbie l/abnormal. [facility] CenterMdtghquBWLWWZFAO3411-92-67 15:33:00 Test Item Value Reference Range Interpretation Comments POC A O2 Sat (test code = POC A O2 Sat) 100.0 95.0-100.0 N [facility] CenterRyrennoHTROGACKK1972-62-78 15:33:00 Test Item Value Reference Range Interpretation Comments POC A Ca Ion (test code = POC A Ca Ion) 1.09 1.05-1.25 N [facility] CenterWywciqrYCKLQIUKM1842-89-79 15:33:00 Test Item Value Reference Range Interpretation Comments POC A pH (test code = POC A pH) 7.34 7.35-7.45 L [facility] CenterHicpromTXZUCRXJZ3446-37-88 15:33:00 Test Item Value Reference Range Interpretation Comments POC A PO2 (test code = POC A PO2) 417 80-100 H [facility] CenterRmmjrznRXZVXMBMG7693-93-38 15:33:00 Test Item Value Reference Range Interpretation Comments POC A PCO2 (test code = POC A PCO2) 48 35-45 H [facility] CenterCtygofsWNEUIUVMJ8413-97-67 15:33:00 Test Item Value Reference Range Interpretation Comments POC A Temp (test code = POC A Temp) 37.0 [facility] CenterLafsddiLKXPUTMWJ4819-44-79 15:33:00 Test Item Value Reference Range Interpretation Comments POC A Source (test code = POC A Source) ART [facility] CenterEytbluyEIMZYGCEI0183-80-60 15:33:00 Test Item Value Reference Range Interpretation Comments POC A Hct (test code = POC A Hct) 34.0 36.0-48.0 L [facility] CenterThldxvtEGHLOFBNP5522-84-94 15:33:00 Test Item Value Reference Range Interpretation Comments POC A Na (test code = POC A Na) 137 135-145 N [facility] CenterFfmbsshHDGFQFKME1054-71-56 15:33:00 Test Item Value Reference Range Interpretation Comments POC A K (test code = POC A K) 3.9 3.5-5.1 N [facility] CenterPifwtfgOUGUYAAUD2219-84-68 15:33:00 Test Item Value Reference Range Interpretation Comments POC A Glu (test code = POC A Glu) 109 70-99 H [facility] CenterYgnvbqhKFSTUTYNM9928-12-06 15:33:00 Test Item Value Reference Range Interpretation Comments POC A LA (test code = POC A LA) 1.6 0.5-2.2 N [facility] CenterSxhwrztVFSPKZBGO3511-37-52 15:33:00 Test Item Value Reference Range Interpretation Comments POC A HCO3 (test code = POC A HCO3) 26 22-26 N [facility] CenterVfjomvmFDGVFXQVR7739-67-14 15:33:00 Test Item Value Reference Range Interpretation Comments POC A BE (test code = 0 See_Comment N [Auto mated message] The POC A BE) system which ge nerated this result transmit richard reference range : <=2. The reference range was not used to interpr et this result as robbie l/abnormal. [facility] CenterUvcnyefMRGUJKQJP7189-15-16 15:33:00 Test Item Value Reference Range Interpretation Comments POC A O2 Sat (test code = POC A O2 Sat) 100.0 95.0-100.0 N [facility] CenterNbkffyuHUKPHFWQQ8675-94-61 15:33:00 Test Item Value Reference Range Interpretation Comments POC A Ca Ion (test code = POC A Ca Ion) 1.09 1.05-1.25 N [facility] CenterWuldtkzSRWLUXKSQ6712-29-72 15:33:00 Test Item Value Reference Range Interpretation Comments POC A pH (test code = POC A pH) 7.34 7.35-7.45 L [facility] CenterKjujslpNRMSIFULC0472-40-33 15:33:00 Test Item Value Reference Range Interpretation Comments POC A PO2 (test code = POC A PO2) 417 80-100 H [facility] CenterMzcwxplZZYJOIFAV8384-23-99 15:33:00 Test Item Value Reference Range Interpretation Comments POC A PCO2 (test code = POC A PCO2) 48 35-45 H [facility] CenterLwtggiiUBOKMANLG9238-44-89 15:33:00 Test Item Value Reference Range Interpretation Comments POC A Temp (test code = POC A Temp) 37.0 [facility] CenterIyvzfniHOXMSJIZN0804-13-08 15:33:00 Test Item Value Reference Range Interpretation Comments POC A Source (test code = POC A Source) ART [facility] CenterJjbwzwoPOEHCMSNM3383-33-88 15:33:00 Test Item Value Reference Range Interpretation Comments POC A Hct (test code = POC A Hct) 34.0 36.0-48.0 L [facility] CenterDdrngniFBYZPJEZA8775-43-42 15:33:00 Test Item Value Reference Range Interpretation Comments POC A Na (test code = POC A Na) 137 135-145 N [facility] CenterIklzvgqNZNJXPTFD3955-01-14 15:33:00 Test Item Value Reference Range Interpretation Comments POC A K (test code = POC A K) 3.9 3.5-5.1 N [facility] CenterUazotdxNYWUJASFT3144-73-70 15:33:00 Test Item Value Reference Range Interpretation Comments POC A Glu (test code = POC A Glu) 109 70-99 H [facility] CenterXwywhxaUQRSXYCID4287-01-64 15:33:00 Test Item Value Reference Range Interpretation Comments POC A LA (test code = POC A LA) 1.6 0.5-2.2 N [facility] CenterEjhpqaaYMHGBZYUR0056-36-18 15:33:00 Test Item Value Reference Range Interpretation Comments POC A HCO3 (test code = POC A HCO3) 26 22-26 N [facility] CenterJcopmziFYAGDLTFN8134-45-49 15:33:00 Test Item Value Reference Range Interpretation Comments POC A BE (test code = POC A BE) 0 <=2 N [facility] CenterWjeavguBJIHPSOUN3074-04-32 15:33:00 Test Item Value Reference Range Interpretation Comments POC A O2 Sat (test code = POC A O2 Sat) 100.0 95.0-100.0 N [facility] CenterZtxyafkYUTSLUVRA3648-90-31 15:33:00 Test Item Value Reference Range Interpretation Comments POC A Ca Ion (test code = POC A Ca Ion) 1.09 1.05-1.25 N [facility] CenterPamhwxiYXBTNGVMI8237-15-88 15:33:00 Test Item Value Reference Range Interpretation Comments POC A pH (test code = POC A pH) 7.34 7.35-7.45 L [facility] CenterMbnecxsKPYXRNJMR9855-02-10 15:33:00 Test Item Value Reference Range Interpretation Comments POC A PO2 (test code = POC A PO2) 417 80-100 H [facility] CenterWdnjzkeIDEKBNVZG1620-57-89 15:33:00 Test Item Value Reference Range Interpretation Comments POC A PCO2 (test code = POC A PCO2) 48 35-45 H [facility] CenterSkoqshxKLNBVRBVH3355-97-94 15:33:00 Test Item Value Reference Range Interpretation Comments POC A Temp (test code = POC A Temp) 37.0 [facility] CenterTcittbsIVKNKKCJF6803-80-34 15:33:00 Test Item Value Reference Range Interpretation Comments POC A Source (test code = POC A Source) ART [facility] CenterNboyoohBKRWCABRD6501-66-89 15:33:00 Test Item Value Reference Range Interpretation Comments POC A Hct (test code = POC A Hct) 34.0 36.0-48.0 L [facility] CenterDyimxqxSOKMYMBNX6870-89-54 15:33:00 Test Item Value Reference Range Interpretation Comments POC A Na (test code = POC A Na) 137 135-145 N [facility] CenterLdexuseIOPBRHHCX1909-59-61 15:33:00 Test Item Value Reference Range Interpretation Comments POC A K (test code = POC A K) 3.9 3.5-5.1 N [facility] CenterJmahkxiZVNLATUWC8623-76-70 14:10:00 Test Item Value Reference Range Interpretation Comments POC A HCO3 (test code = POC A HCO3) 24 22-26 N [facility] CenterGwyezmwYYOKBEKMW4576-39-49 14:10:00 Test Item Value Reference Range Interpretation Comments POC A PO2 (test code = POC A PO2) 332 80-100 H [facility] CenterGdwyjetLCCWKSRBU8332-56-32 14:10:00 Test Item Value Reference Range Interpretation Comments POC A PCO2 (test code = POC A PCO2) 41 35-45 N [facility] CenterPceqniaUYEDNVOZM7218-89-52 14:10:00 Test Item Value Reference Range Interpretation Comments POC A LA (test code = POC A LA) 2.1 0.5-2.2 N [facility] CenterDcqvcqvYXXFYMWBJ6235-10-95 14:10:00 Test Item Value Reference Range Interpretation Comments POC A Glu (test code = POC A Glu) 132 70-99 H [facility] CenterGyecgjrYZOROZFTV1035-37-38 14:10:00 Test Item Value Reference Range Interpretation Comments POC A Hct (test code = POC A Hct) 39.0 36.0-48.0 N [facility] CenterHifrvjdVVFSTCXDN4179-98-98 14:10:00 Test Item Value Reference Range Interpretation Comments POC A K (test code = POC A K) 3.5 3.5-5.1 N [facility] CenterKmfpikqMMQYEXHTN9902-37-36 14:10:00 Test Item Value Reference Range Interpretation Comments POC A Na (test code = POC A Na) 138 135-145 N [facility] CenterIllimagMJJJATCPU5541-06-52 14:10:00 Test Item Value Reference Range Interpretation Comments POC A Ca Ion (test code = POC A Ca Ion) 1.12 1.05-1.25 N [facility] CenterExcsxuuIGVOWLPAY7385-61-27 14:10:00 Test Item Value Reference Range Interpretation Comments POC A O2 Sat (test code = POC A O2 Sat) 100.0 95.0-100.0 N [facility] CenterEcpqmruQTXYLCCKN2467-82-39 14:10:00 Test Item Value Reference Range Interpretation Comments POC A BE (test code = -1 See_Comment N [Auto mated message] The POC A BE) system which ge nerated this result transmit richard reference range : <=2. The reference range was not used to interpr et this result as robbie l/abnormal. [facility] CenterHalwwawVJZJESYRL8625-00-33 14:10:00 Test Item Value Reference Range Interpretation Comments POC A Source (test code = POC A Source) ART [facility] CenterOsvwcfiNBJRLEIFF2611-43-35 14:10:00 Test Item Value Reference Range Interpretation Comments POC A pH (test code = POC A pH) 7.38 7.35-7.45 N [facility] CenterSrltuppPTPHQSJOE3588-36-17 14:10:00 Test Item Value Reference Range Interpretation Comments POC A Temp (test code = POC A Temp) 37.0 [facility] CenterHucrxojDFKEZFEXR3262-78-79 14:10:00 Test Item Value Reference Range Interpretation Comments POC A HCO3 (test code = POC A HCO3) 24 22-26 N [facility] CenterZvqduogDFYVXKIUD6085-75-47 14:10:00 Test Item Value Reference Range Interpretation Comments POC A PO2 (test code = POC A PO2) 332 80-100 H [facility] CenterTxwvnbpMJGLMBFGF8245-27-48 14:10:00 Test Item Value Reference Range Interpretation Comments POC A PCO2 (test code = POC A PCO2) 41 35-45 N [facility] CenterClpjqsmHKZYLLOZC5000-68-10 14:10:00 Test Item Value Reference Range Interpretation Comments POC A LA (test code = POC A LA) 2.1 0.5-2.2 N [facility] CenterAbfaaccONPMXNFKK4469-82-87 14:10:00 Test Item Value Reference Range Interpretation Comments POC A Glu (test code = POC A Glu) 132 70-99 H [facility] CenterAjxwwzcJFSDVUYYZ3568-72-38 14:10:00 Test Item Value Reference Range Interpretation Comments POC A Hct (test code = POC A Hct) 39.0 36.0-48.0 N [facility] CenterQluxmuwDRJNNBXWN1650-47-49 14:10:00 Test Item Value Reference Range Interpretation Comments POC A K (test code = POC A K) 3.5 3.5-5.1 N [facility] CenterTjjupanDHSFSDNQT2285-89-00 14:10:00 Test Item Value Reference Range Interpretation Comments POC A Na (test code = POC A Na) 138 135-145 N [facility] CenterHpnbxorZDMVPJYPT5488-64-34 14:10:00 Test Item Value Reference Range Interpretation Comments POC A Ca Ion (test code = POC A Ca Ion) 1.12 1.05-1.25 N [facility] CenterEljyhmeJPAZYOOQZ2285-83-16 14:10:00 Test Item Value Reference Range Interpretation Comments POC A O2 Sat (test code = POC A O2 Sat) 100.0 95.0-100.0 N [facility] CenterHwnjvwlEWFQODRFS5163-52-70 14:10:00 Test Item Value Reference Range Interpretation Comments POC A BE (test code = -1 See_Comment N [Auto mated message] The POC A BE) system which ge nerated this result transmit richard reference range : <=2. The reference range was not used to interpr et this result as robbie l/abnormal. [facility] CenterMqttxgmBLMWCYGJW6617-41-38 14:10:00 Test Item Value Reference Range Interpretation Comments POC A Source (test code = POC A Source) ART [facility] CenterXnjkoxzAGAMIIMAJ1751-98-23 14:10:00 Test Item Value Reference Range Interpretation Comments POC A pH (test code = POC A pH) 7.38 7.35-7.45 N [facility] CenterFsebhppZTQILLGIQ7037-52-15 14:10:00 Test Item Value Reference Range Interpretation Comments POC A Temp (test code = POC A Temp) 37.0 [facility] CenterPildxpdWBJIEVODC0446-27-72 14:10:00 Test Item Value Reference Range Interpretation Comments POC A HCO3 (test code = POC A HCO3) 24 22-26 N [facility] CenterAvvnoykLPZTCIJMI3075-33-64 14:10:00 Test Item Value Reference Range Interpretation Comments POC A PO2 (test code = POC A PO2) 332 80-100 H [facility] CenterBeytjslEJSGSYTKS6645-23-04 14:10:00 Test Item Value Reference Range Interpretation Comments POC A PCO2 (test code = POC A PCO2) 41 35-45 N [facility] CenterFykpyeeTEGYAKBOO4636-92-89 14:10:00 Test Item Value Reference Range Interpretation Comments POC A LA (test code = POC A LA) 2.1 0.5-2.2 N [facility] CenterDzuqjhlEEVGQDTND2132-53-67 14:10:00 Test Item Value Reference Range Interpretation Comments POC A Glu (test code = POC A Glu) 132 70-99 H [facility] CenterZmwhmdyMCGKNWIYN3778-36-67 14:10:00 Test Item Value Reference Range Interpretation Comments POC A Hct (test code = POC A Hct) 39.0 36.0-48.0 N [facility] CenterEufmnrsTELZWJLFF2635-81-11 14:10:00 Test Item Value Reference Range Interpretation Comments POC A K (test code = POC A K) 3.5 3.5-5.1 N [facility] CenterFkuhkucTDVEQUTOU6215-09-45 14:10:00 Test Item Value Reference Range Interpretation Comments POC A Na (test code = POC A Na) 138 135-145 N [facility] CenterMyodaxqSPJALLIBE1583-24-40 14:10:00 Test Item Value Reference Range Interpretation Comments POC A Ca Ion (test code = POC A Ca Ion) 1.12 1.05-1.25 N [facility] CenterUqnlyxfWBYVLMWJE8146-77-01 14:10:00 Test Item Value Reference Range Interpretation Comments POC A O2 Sat (test code = POC A O2 Sat) 100.0 95.0-100.0 N [facility] CenterFewpzssMPRGPFLRG6537-78-03 14:10:00 Test Item Value Reference Range Interpretation Comments POC A BE (test code = -1 See_Comment N [Auto mated message] The POC A BE) system which ge nerated this result transmit richard reference range : <=2. The reference range was not used to interpr et this result as robbie l/abnormal. [facility] CenterNoinpenJHKUBJJXD1327-44-17 14:10:00 Test Item Value Reference Range Interpretation Comments POC A Source (test code = POC A Source) ART [facility] CenterAjdgialJDQRVHPZY9871-68-35 14:10:00 Test Item Value Reference Range Interpretation Comments POC A pH (test code = POC A pH) 7.38 7.35-7.45 N [facility] CenterJmrxqtqUPWMFPKWA7081-46-68 14:10:00 Test Item Value Reference Range Interpretation Comments POC A Temp (test code = POC A Temp) 37.0 [facility] CenterVbiiqogHUWOQDRBP3701-54-51 14:10:00 Test Item Value Reference Range Interpretation Comments POC A HCO3 (test code = POC A HCO3) 24 22-26 N [facility] CenterAdnxrjoFVJVMTIUL6248-79-92 14:10:00 Test Item Value Reference Range Interpretation Comments POC A PO2 (test code = POC A PO2) 332 80-100 H [facility] CenterDnicvarNLQYAZIJQ4972-45-09 14:10:00 Test Item Value Reference Range Interpretation Comments POC A PCO2 (test code = POC A PCO2) 41 35-45 N [facility] CenterEnpkwtiOWCFARZXJ9982-60-06 14:10:00 Test Item Value Reference Range Interpretation Comments POC A LA (test code = POC A LA) 2.1 0.5-2.2 N [facility] CenterLlunlmgYMIPLQZBQ8926-11-40 14:10:00 Test Item Value Reference Range Interpretation Comments POC A Glu (test code = POC A Glu) 132 70-99 H [facility] CenterFkrfmhoYLUQTXLQL1369-73-23 14:10:00 Test Item Value Reference Range Interpretation Comments POC A Hct (test code = POC A Hct) 39.0 36.0-48.0 N [facility] CenterRhdaybsXPLUKLGLW5573-18-64 14:10:00 Test Item Value Reference Range Interpretation Comments POC A K (test code = POC A K) 3.5 3.5-5.1 N [facility] CenterVesmsrsTRFVPPUMV7666-60-38 14:10:00 Test Item Value Reference Range Interpretation Comments POC A Na (test code = POC A Na) 138 135-145 N [facility] CenterJgbcbugIMWVWXQKE3333-50-59 14:10:00 Test Item Value Reference Range Interpretation Comments POC A Ca Ion (test code = POC A Ca Ion) 1.12 1.05-1.25 N [facility] CenterWijkadhQNWRMRJDE5989-68-39 14:10:00 Test Item Value Reference Range Interpretation Comments POC A O2 Sat (test code = POC A O2 Sat) 100.0 95.0-100.0 N [facility] CenterViyewjqAPMDAUUNH8908-50-35 14:10:00 Test Item Value Reference Range Interpretation Comments POC A BE (test code = POC A BE) -1 <=2 N [facility] CenterShsdpwvKUHGNCGXD1830-24-88 14:10:00 Test Item Value Reference Range Interpretation Comments POC A Source (test code = POC A Source) ART [facility] CenterSvpkpdxNGOCXQPMY2202-30-93 14:10:00 Test Item Value Reference Range Interpretation Comments POC A pH (test code = POC A pH) 7.38 7.35-7.45 N [facility] CenterVzubmcmHFAGUVBLL8931-30-76 14:10:00 Test Item Value Reference Range Interpretation Comments POC A Temp (test code = POC A Temp) 37.0 [facility] PUDETFB8212-89-09 11:40:00 Test Item Value Reference Range Interpretation Comments Antibody Scrn (test Negative (05/09/2013 N code = Antibody Scrn) 06:40:00) [facility] WUETCEQ3466-53-00 11:40:00 Test Item Value Reference Range Interpretation Comments ABO/Rh (test code = ABO/Rh) A [facility] ZBKIAJM2156-93-17 11:40:00 Test Item Value Reference Range Interpretation Comments Antibody Scrn (test Negative (05/09/2013 N code = Antibody Scrn) 06:40:00) [facility] ODTONMW4540-17-40 11:40:00 Test Item Value Reference Range Interpretation Comments ABO/Rh (test code = ABO/Rh) A [facility] CBOBTHN7570-64-17 11:40:00 Test Item Value Reference Range Interpretation Comments Antibody Scrn (test Negative (05/09/2013 N code = Antibody Scrn) 06:40:00) [facility] OKMAOGZ6130-86-84 11:40:00 Test Item Value Reference Range Interpretation Comments ABO/Rh (test code = ABO/Rh) A [facility] WKEOYFJ1571-02-57 11:40:00 Test Item Value Reference Range Interpretation Comments Antibody Scrn (test Negative (05/09/2013 N code = Antibody Scrn) 06:40:00) [facility] CJAJZRX3527-54-40 11:40:00 Test Item Value Reference Range Interpretation Comments ABO/Rh (test code = ABO/Rh) A [facility]2013-10-09 11:39:40 Test Item Value Reference Range Interpretation Comments A/G Ratio (test code = A/G Ratio) 1.3 0.7-1.6 N [facility] CenterWlykonlPRUCXLGWO8310-12-82 11:39:40 Test Item Value Reference Range Interpretation Comments Globulin (test code = Globulin) 3.6 2.0-4.0 N [facility] CenterMxlfxbaKVVHZLRER5304-87-53 11:39:40 Test Item Value Reference Range Interpretation Comments B/C Ratio (test code = B/C Ratio) 16 6-25 N [facility] CenterNtwtahfSVMUEZIKA0423-92-75 11:39:40 Test Item Value Reference Range Interpretation Comments Alk Phos (test code = Alk Phos) 64 39-136 N [facility] CenterOfjlurvBMIHBMUNZ3044-20-77 11:39:40 Test Item Value Reference Range Interpretation Comments Bili Total (test code = Bili Total) 0.7 0.2-1.3 N [facility] CenterZyqabruWGWXVTPGM3662-50-60 11:39:40 Test Item Value Reference Range Interpretation Comments ASPARTATE TRANSAMINASE 13 See_Comment N [Aut omated message] (test code = ASPARTATE The s ystem which TRANSAMINASE) generated this result transmitted ref erence range: <=37. Th e reference range was not used to interpr et this result as normal/abnormal . [facility] CenterTclqvorJCDJYWYWJ8329-13-96 11:39:40 Test Item Value Reference Range Interpretation Comments Total Protein (test code = Total 8.4 6.4-8.4 N Protein) [facility] CenterHuocpsaKHOGLCLQC9975-17-96 11:39:40 Test Item Value Reference Range Interpretation Comments ALANINE AMINOTRANSFERASE 24 See_Comment N [A utomated message] (test code = ALANINE The sys tem which AMINOTRANSFERASE) generated this result transmitted ref erence range: <=65. Th e reference range was not used to int erpret this result as normal/abnormal . [facility] CenterQnlipeyPCKOWJVQL3083-47-07 11:39:40 Test Item Value Reference Range Interpretation Comments Albumin Lvl (test code = Albumin Lvl) 4.8 3.5-5.0 [facility]mPDEHLKBOQU7337-25-28 11:39:40 Test Item Value Reference Range Interpretation Comments aPTT (test code = aPTT) 28.7 s 22.9-35.8 N [facility]LxxvqekIBKNWNMUIF7544-69-84 11:39:40 Test Item Value Reference Range Interpretation Comments INR (test code = INR) 1.00 0.85-1.17 N [facility]EgslfeoHJGVYRILLT0733-01-60 11:39:40 Test Item Value Reference Range Interpretation Comments PROTIME (test code = PROTIME) 13.1 s 12.0-14.7 N [facility] CenterOlvbkklFSIARAPXR2652-43-39 11:39:40 Test Item Value Reference Range Interpretation Comments A/G Ratio (test code = A/G Ratio) 1.3 0.7-1.6 N [facility] CenterNutqaezWAMDZGAIV0837-26-04 11:39:40 Test Item Value Reference Range Interpretation Comments Globulin (test code = Globulin) 3.6 2.0-4.0 N [facility] CenterAfmavqaSCHHFUAZW6613-97-51 11:39:40 Test Item Value Reference Range Interpretation Comments B/C Ratio (test code = B/C Ratio) 16 6-25 N [facility] CenterFartdrxNZGNGFYTN6932-26-64 11:39:40 Test Item Value Reference Range Interpretation Comments Alk Phos (test code = Alk Phos) 64 39-136 N [facility] CenterTnsbjviGJOCHCLYZ9554-25-77 11:39:40 Test Item Value Reference Range Interpretation Comments Bili Total (test code = Bili Total) 0.7 0.2-1.3 N [facility] CenterMvhhxauWXZCNSIHF9934-30-56 11:39:40 Test Item Value Reference Range Interpretation Comments ASPARTATE TRANSAMINASE 13 See_Comment N [Aut omated message] (test code = ASPARTATE The s ystem which TRANSAMINASE) generated this result transmitted ref erence range: <=37. Th e reference range was not used to interpr et this result as normal/abnormal . [facility] CenterMdmpultJKXGYEOTQ6482-77-23 11:39:40 Test Item Value Reference Range Interpretation Comments Total Protein (test code = Total 8.4 6.4-8.4 N Protein) [facility] CenterIxnfiocQTKBLCSYL7150-58-11 11:39:40 Test Item Value Reference Range Interpretation Comments ALANINE AMINOTRANSFERASE 24 See_Comment N [A utomated message] (test code = ALANINE The sys tem which AMINOTRANSFERASE) generated this result transmitted ref erence range: <=65. Th e reference range was not used to int erpret this result as normal/abnormal . [facility] CenterJtjepxdQJCJVAUER2870-21-84 11:39:40 Test Item Value Reference Range Interpretation Comments Albumin Lvl (test code = Albumin Lvl) 4.8 3.5-5.0 N [facility]IgswpniFMWGCIGYKH4709-85-56 11:39:40 Test Item Value Reference Range Interpretation Comments aPTT (test code = aPTT) 28.7 s 22.9-35.8 N [facility] HospitalJtmmlhcQFWBSLJAIL9280-26-29 11:39:40 Test Item Value Reference Range Interpretation Comments INR (test code = INR) 1.00 0.85-1.17 N [facility] HospitalSujjgrsOCIRQXOAVL1428-19-42 11:39:40 Test Item Value Reference Range Interpretation Comments PROTIME (test code = PROTIME) 13.1 s 12.0-14.7 N [facility] CenterLzlgghxQVWIZCGQS1434-71-30 11:39:40 Test Item Value Reference Range Interpretation Comments A/G Ratio (test code = A/G Ratio) 1.3 0.7-1.6 N [facility] CenterCbuzndgAUYKMDHFM7265-71-54 11:39:40 Test Item Value Reference Range Interpretation Comments Globulin (test code = Globulin) 3.6 2.0-4.0 N [facility] CenterLeimjksNZUNKQZJA8845-47-25 11:39:40 Test Item Value Reference Range Interpretation Comments B/C Ratio (test code = B/C Ratio) 16 6-25 N [facility] CenterCrsllzwACWPFHVTE6508-00-28 11:39:40 Test Item Value Reference Range Interpretation Comments Alk Phos (test code = Alk Phos) 64 39-136 N [facility] CenterGazchotGRHIVWHSL3203-78-32 11:39:40 Test Item Value Reference Range Interpretation Comments Bili Total (test code = Bili Total) 0.7 0.2-1.3 N [facility] CenterZbulfwkYKBRRLAPD2353-11-00 11:39:40 Test Item Value Reference Range Interpretation Comments ASPARTATE TRANSAMINASE 13 See_Comment N [Aut omated message] (test code = ASPARTATE The s ystem which TRANSAMINASE) generated this result transmitted ref erence range: <=37. Th e reference range was not used to interpr et this result as normal/abnormal . [facility] Cen[id number] 11:39:40 Test Item Value Reference Range Interpretation Comments Total Protein (test code = Total 8.4 6.4-8.4 N Protein) [facility] CenterOzgneslVPZJEBLVH5001-04-19 11:39:40 Test Item Value Reference Range Interpretation Comments ALANINE AMINOTRANSFERASE 24 See_Comment N [A utomated message] (test code = ALANINE The sys tem which AMINOTRANSFERASE) generated this result transmitted ref erence range: <=65. Th e reference range was not used to int erpret this result as normal/abnormal . [facility] CenterGfrccjjQIPJQDHCM2633-69-42 11:39:40 Test Item Value Reference Range Interpretation Comments Albumin Lvl (test code = Albumin Lvl) 4.8 3.5-5.0 N [facility]IdiqktuZHYFHRQCIY5425-63-97 11:39:40 Test Item Value Reference Range Interpretation Comments aPTT (test code = aPTT) 28.7 s 22.9-35.8 N [facility] HospitalVntdfugRODBPYZFVY9761-20-15 11:39:40 Test Item Value Reference Range Interpretation Comments INR (test code = INR) 1.00 0.85-1.17 N [facility] HospitalTurusphBXCMCSBCXX0583-77-33 11:39:40 Test Item Value Reference Range Interpretation Comments PROTIME (test code = PROTIME) 13.1 s 12.0-14.7 N [facility] CenterTlcorxaHNFCTHJUI6529-77-34 11:39:40 Test Item Value Reference Range Interpretation Comments A/G Ratio (test code = A/G Ratio) 1.3 0.7-1.6 N [facility] CenterEorlsjyCLXFXALND4375-93-91 11:39:40 Test Item Value Reference Range Interpretation Comments Globulin (test code = Globulin) 3.6 2.0-4.0 N [facility] CenterGoynxwkWVAHKCAJX4358-85-69 11:39:40 Test Item Value Reference Range Interpretation Comments B/C Ratio (test code = B/C Ratio) 16 6-25 N [facility] CenterVmckbszEPWJZOSSI9416-80-56 11:39:40 Test Item Value Reference Range Interpretation Comments Alk Phos (test code = Alk Phos) 64 39-136 N [facility] CenterRuaqqlxXNJGXMXZA4455-09-13 11:39:40 Test Item Value Reference Range Interpretation Comments Bili Total (test code = Bili Total) 0.7 0.2-1.3 N [facility] CenterXqcvguiXNXBGEEYD3274-08-27 11:39:40 Test Item Value Reference Range Interpretation Comments ASPARTATE TRANSAMINASE (test code = 13 <=37 N ASPARTATE TRANSAMINASE) [facility] CenterEjiumupUMZZJRKNV9525-89-06 11:39:40 Test Item Value Reference Range Interpretation Comments Total Protein (test code = Total 8.4 6.4-8.4 N Protein) [facility] CenterOcbssdsUJACUTBTN6289-52-91 11:39:40 Test Item Value Reference Range Interpretation Comments ALANINE AMINOTRANSFERASE (test code = 24 <=65 N ALANINE AMINOTRANSFERASE) [facility] CenterFmwjjqnSNELEUHWI8418-03-86 11:39:40 Test Item Value Reference Range Interpretation Comments Albumin Lvl (test code = Albumin Lvl) 4.8 3.5-5.0 N [facility] HospitalPmtsrpnYBLEKOLDSX8280-17-75 11:39:40 Test Item Value Reference Range Interpretation Comments aPTT (test code = aPTT) 28.7 s 22.9-35.8 N [facility] HospitalYymscgsHDDWNHKOZO1013-57-42 11:39:40 Test Item Value Reference Range Interpretation Comments INR (test code = INR) 1.00 0.85-1.17 N [facility] HospitalCqdwrovQWGPJZNOMU1626-19-33 11:39:40 Test Item Value Reference Range Interpretation Comments PROTIME (test code = PROTIME) 13.1 s 12.0-14.7 N [facility] CenterKvckvkiDDTYJKVXI6000-63-42 11:37:00 Test Item Value Reference Range Interpretation Comments U Preg (test code = U Negative (05/09/2013 N Preg) 06:37:00) [facility] HospitalYomsfjnUZZCEIBKGN7166-08-15 11:37:00 Test Item Value Reference Range Interpretation Comments Plt Morph (test code = Normal (05/09/2013 N Plt Morph) 06:37:00) [facility] HospitalCmxdebgXGYTOXFOJN2889-91-02 11:37:00 Test Item Value Reference Range Interpretation Comments Eosinophils (test code = 1.0 See_Comment N [A utomated message] The Eosinophils) system which ge nerated this result tra nsmitted reference range : <=4.0. The reference r joan was not used to int erpret this result as normal/abnormal . [facility] HospitalMaqivchKXFHDOOQXJ9935-90-61 11:37:00 Test Item Value Reference Range Interpretation Comments Atypical Lymphs (test code = Atypical 0.0 N Lymphs) [facility] HospitalTztqvrjLHKUMXJNJP6580-60-64 11:37:00 Test Item Value Reference Range Interpretation Comments RBC Morph (test code = Normal (05/09/2013 N RBC Morph) 06:37:00) [facility] HospitalAllzdgdMXBYAACWJU9200-99-65 11:37:00 Test Item Value Reference Range Interpretation Comments Bands (test code = 0.0 See_Comment N [Automat ed message] The Bands) system which ge nerated this result transmit richard reference range : <=11.0. The reference r joan was not used to interpr et this result as robbie l/abnormal. [facility] HospitalVwyxaokWERYXPIUHA8695-02-48 11:37:00 Test Item Value Reference Range Interpretation Comments Eosinophils # (test code 0.1 See_Comment N [A utomated message] The = Eosinophils #) system whic h generated this result tra nsmitted reference range : <=0.5. The reference r joan was not used to int erpret this result as normal/abnormal . [facility] CenterUpuvznySMUISVJJL4520-81-56 11:37:00 Test Item Value Reference Range Interpretation Comments U Preg (test code = U Negative (05/09/2013 N Preg) 06:37:00) [facility] HospitalEfvnauxMMQHEUACGC3033-62-84 11:37:00 Test Item Value Reference Range Interpretation Comments Plt Morph (test code = Normal (05/09/2013 N Plt Morph) 06:37:00) [facility] HospitalRjlopphLJECWVVBWY2766-14-80 11:37:00 Test Item Value Reference Range Interpretation Comments Eosinophils (test code = 1.0 See_Comment N [A utomated message] The Eosinophils) system which ge nerated this result tra nsmitted reference range : <=4.0. The reference r joan was not used to int erpret this result as normal/abnormal . [facility] HospitalGwxzhoyWHFPOWCJQC5037-30-12 11:37:00 Test Item Value Reference Range Interpretation Comments Atypical Lymphs (test code = Atypical 0.0 N Lymphs) [facility] HospitalYrbzlruUNRPCLCSNN1500-06-69 11:37:00 Test Item Value Reference Range Interpretation Comments RBC Morph (test code = Normal (05/09/2013 N RBC Morph) 06:37:00) [facility] Hospit[id number] 11:37:00 Test Item Value Reference Range Interpretation Comments Bands (test code = 0.0 See_Comment N [Automat ed message] The Bands) system which ge nerated this result transmit richard reference range : <=11.0. The reference r joan was not used to interpr et this result as robbie l/abnormal. [facility] HospitalSqitjxxJXOJVRNXNF4730-84-06 11:37:00 Test Item Value Reference Range Interpretation Comments Eosinophils # (test code 0.1 See_Comment N [A utomated message] The = Eosinophils #) system [employer] generated this result tra nsmitted reference range : <=0.5. The reference r joan was not used to int erpret this result as normal/abnormal . [facility] CenterHllzgaaCWOXIASNV0613-70-42 11:37:00 Test Item Value Reference Range Interpretation Comments U Preg (test code = U Negative (05/09/2013 N Preg) 06:37:00) [facility] HospitalRqvunykXBETIKCWMX6314-26-96 11:37:00 Test Item Value Reference Range Interpretation Comments Plt Morph (test code = Normal (05/09/2013 N Plt Morph) 06:37:00) [facility] HospitalKaqwgyfEHRHFANNIR8710-77-47 11:37:00 Test Item Value Reference Range Interpretation Comments Eosinophils (test code = 1.0 See_Comment N [A utomated message] The Eosinophils) system which ge nerated this result tra nsmitted reference range : <=4.0. The reference r joan was not used to int erpret this result as normal/abnormal . [facility] HospitalKjmtciwIUXWILRNKE5242-43-52 11:37:00 Test Item Value Reference Range Interpretation Comments Atypical Lymphs (test code = Atypical 0.0 N Lymphs) [facility] HospitalLhizachZJABABJDYT3231-22-53 11:37:00 Test Item Value Reference Range Interpretation Comments RBC Morph (test code = Normal (05/09/2013 N RBC Morph) 06:37:00) [facility] HospitalGndlnhqSGUWUHKUGG1046-31-82 11:37:00 Test Item Value Reference Range Interpretation Comments Bands (test code = 0.0 See_Comment N [Automat ed message] The Bands) system which ge nerated this result transmit richard reference range : <=11.0. The reference r joan was not used to interpr et this result as robbie l/abnormal. [facility] HospitalOpqruwyFDGGTVUQLZ4751-28-75 11:37:00 Test Item Value Reference Range Interpretation Comments Eosinophils # (test code 0.1 See_Comment N [A utomated message] The = Eosinophils #) system [employer] generated this result tra nsmitted reference range : <=0.5. The reference r joan was not used to int erpret this result as normal/abnormal . [facility] CenterPuqukvqQDZZDWVVZ5156-27-36 11:37:00 Test Item Value Reference Range Interpretation Comments U Preg (test code = U Negative (05/09/2013 N Preg) 06:37:00) [facility] HospitalSgjafbbDYDHASFQAC2388-08-56 11:37:00 Test Item Value Reference Range Interpretation Comments Plt Morph (test code = Normal (05/09/2013 N Plt Morph) 06:37:00) [facility] HospitalFbrjgvcHBFAUIXMOH9051-50-92 11:37:00 Test Item Value Reference Range Interpretation Comments Eosinophils (test code = Eosinophils) 1.0 <=4.0 N [facility] HospitalHbrloqhSJBTHNBOZM2356-19-56 11:37:00 Test Item Value Reference Range Interpretation Comments Atypical Lymphs (test code = Atypical 0.0 N Lymphs) [facility] HospitalCkzurcjOQVRTTPIHL8190-24-93 11:37:00 Test Item Value Reference Range Interpretation Comments RBC Morph (test code = Normal (05/09/2013 N RBC Morph) 06:37:00) [facility] HospitalCdudhepQJTFCFQTSE5795-22-86 11:37:00 Test Item Value Reference Range Interpretation Comments Bands (test code = Bands) 0.0 <=11.0 N [facility] Hospit[id number] 11:37:00 Test Item Value Reference Range Interpretation Comments Eosinophils # (test code = Eosinophils 0.1 <=0.5 N #) [facility]
[2023-06-06 08:57] LABS: Absolute Lymphocytes (CBC) 2.1 K/uL (0.7-4.9); Hematocrit 43.8 % (36.0-45.0); Lymphocytes % 29.6 % (15.3-44.8); MCV 89.3 fL (80-100); Platelets 302 thou/uL (152-406)
[2023-06-06 09:03] LABS: Protime INR 0.95
--- NOTE | 2023-06-06 09:04 | RAD REPORT ---
EXAM DESCRIPTION: CT - Head Brain Wo Cont - 06/06/2023 8:54 am CLINICAL HISTORY: VISUAL DISTURBANCES Headache, drowsiness COMPARISON: HEAD BRAIN W O CONTRAST dated 01/11/2013 TECHNIQUE: All CT scans are performed using dose optimization technique as appropriate and may inclu de automated exposure control or mA/KV adjustment according to patient size. FINDINGS: No intracranial hemorrhage, hydrocephalus or extra-axial fluid collection.Postsurgical kvng nges are present left temporal fossa with underlying gliosis in the left temporal lobe. Ventriculosto my tube is in place with its tip adjacent to the left frontal horn. The paranasal sinuses and mastoids are clear. The calvarium is intact. IMPRESSION: No hydrocephalus or other acute abnormality is detected. Left-sided ventriculostomy tub e is in place abutting the left frontal horn. Postsurgical changes are present left temporal fossa.
--- NOTE | 2023-06-06 09:06 | RAD REPORT ---
EXAM DESCRIPTION: RAD - Chest Single View - 06/06/2023 8:59 am CLINICAL HISTORY: MALAISE Chest pain. COMPARISON: No comparisons FINDINGS: Portable technique limits examination quality. The lungs are grossly clear. The heart is normal in size. No displaced fractures. Left-sided ventricu lostomy shunt tubing noted. IMPRESSION: No acute intrathoracic process suspected.
[2023-06-06 09:20] LABS: BUN Blood Urea Nitrogen 8 mg/dL (7-18); Bicarbonate 30 mEq/L (21-32); Glomerular Filtration Rate 107 ml/min (=/>90); Glucose Level 100 mg/dL (74-106); Potassium 4.2 mEq/L (3.5-5.1); Sodium Level 138 mEq/L (136-145)
[2023-06-06 09:23] LABS: Troponin High Sensitivity < 3.0 pg/mL (<58.9)
--- NOTE | 2023-06-06 10:56 | RAD REPORT ---
EXAM DESCRIPTION: MRI - Brain Wo Cont - 06/06/2023 10:44 am CLINICAL HISTORY: VISUAL DISTURBANCES Headache, drowsiness COMPARISON: Head Brain Wo Cont dated 06/06/2023 TECHNIQUE: Multi-sequence, multiplanar MR imaging of the brain was performed without contrast. FINDINGS: Blooming artifact is noted along the left posterior fossa. No intracranial hemorrhage, hyd rocephalus or extra-axial fluid collections.Postsurgical changes are present left temporal fossa. No edema or shift of midline structures. No findings to suspect brain mass.There is a left-sided ventric ulostomy shunt tubing seen. DWI is negative for acute CVA. Midline structures are normally formed. Mastoid air cells and paranasal sinuses are clear. IMPRESSION: Negative for acute CVA or other acute intracranial abnormality.
--- NOTE | 2023-06-06 11:06 | ER ---
Nurse's Notes [facility] Name: Honey Archibald Age: 32 yrs Sex: Female : 1990 Arrival Date: 06/06/2023 Time: 08:21 Bed 19 Private MD: Diagnosis: Dizziness and giddiness;Visual Changes-Resolved Presentation: 06/06 08:31 Chief complaint: Patient states: Vision changes started while at work around 0730 AM. ll1 Slight weakness. No fever. Coronavirus screen: Client denies travel out of the [place] in the last 14 days. At this time, the client does not indicate any symptoms associated with coronavirus-19. Ebola Screen: Patient denies travel to an Ebola-affected area in the 21 days before illness onset. Initial Sepsis Screen: Does the patient meet any 2 criteria? No. Patient's initial sepsis screen is negative. Does the patient have a suspected source of infection? No. Patient's initial sepsis screen is negative. Risk Assessment: Do you want to hurt yourself or someone else? Patient reports no desire to harm self or others. Onset of symptoms was June 06, 2023. 08:31 Method Of Arrival: Ambulatory ll1 08:31 Acuity: RAMESH 3 ll1 Historical: - Allergies: 08:30 No Known Allergies; ll1 - PMHx: 08:30 arachnoid cyst; ll1 - PSHx: 08:30 brain SX; ll1 - Immunization history:: Adult Immunizations up to date. - Social history:: Smoking status: Patient denies any tobacco usage or history of. Screenin:26 [facility] ED Fall Risk Assessment (Adult) History of falling in the last 3 months, rs5 including since admission No falls in past 3 months (0 pts) Confusion or Disorientation No (0 pts) Intoxicated or Sedated No (0 pts) Impaired Gait No (0 pts) Mobility Assist Device Used No (0 pt) Altered Elimination No (0 pt) Score/Fall Risk Level 0 - 2 = Low Risk Oriented to surroundings, Maintained a safe environment. Abuse screen: Denies threats or abuse. Nutritional screening: No deficits noted. Tuberculosis screening: No symptoms or risk factors identified. Assessment: 08:26 General: Appears in no apparent distress. comfortable, Behavior is calm, cooperative. rs5 Pain: Denies pain. Neuro: Level of Consciousness is awake, alert, obeys commands, Oriented to person, place, time, situation, Outreach Consultant are equal bilaterally Moves all extremities. Full function Gait is steady, Speech is normal, Facial symmetry appears normal, Pupils are PERRLA, Pupil Size: 3 mm Intact Babinski is negative Pt states "At work this morning, I kept seeing black spots out of my right eye and I temporarily lost my peripheral vision in my right eye." Pt currently denies experiencing visual changes or disturbances. . Cardiovascular: Heart tones S1 S2 present Rhythm is regular. Respiratory: Airway is patent Respiratory effort is even, unlabored, Respiratory pattern is regular, symmetrical, Breath sounds are clear bilaterally. GI: Abdomen is round non-distended, Bowel sounds present X 4 quads. Abd is soft and non tender X 4 quads. : No signs and/or symptoms were reported regarding the genitourinary system. EENT: No signs and/or symptoms were reported regarding the EENT system. Derm: Skin is intact, Skin is pink, warm \\T\\ dry. Musculoskeletal: Range of motion: intact in all extremities. 09:00 Reassessment: To bedside for visual acuity test. Findings: 20/20 vision right eye, rs5 20/20 vision left eye, 20/20 vision both eyes. 09:37 Reassessment: Patient and/or family updated on plan of care and expected duration. Pain rs5 level reassessed. Patient is alert, oriented x 3, equal unlabored respirations, skin warm/dry/pink. Neuro: Level of Consciousness is awake, alert, obeys commands, Oriented to person, place, time, situation. Neuro: Pupils are PERRLA, Pt denies currently expiring visual changes or disturbances . Vital Signs: 08:31 BP 133 / 96; Pulse 77; Resp 16; Temp 98.1; Pulse Ox 98% ; Weight 60.33 kg; Height 5 ft. ll1 5 in. ; Pain 4/10; 08:31 Body Mass Index 22.13 (60.33 kg, 165.1 cm) ll1 08:31 Pain Scale: Adult ll1 Donald Coma Score: 08:30 Eye Response: spontaneous(4). Motor Response: obeys commands(6). Verbal Response: jh7 oriented(5). Total: 15. NIH Stroke Scale Scores: 08:30 NIHSS Score: 0 jh7 ED Course: 08:24 Patient arrived in ED. mg5 08:26 Kimber Perez [facility] jh7 08:26 Tien Mcfarlane MD is Attending Physician. jh7 08:26 Patient has correct armband on for positive identification. Bed in low position. Call rs5 light in reach. Side rails up X2. 08:28 Erlin Salinas, RN is Primary Nurse. rs5 08:30 Arm band placed on Patient placed in an exam room, on a stretcher. ll1 08:33 Triage completed. ll1 08:55 CT Head Brain wo Cont In Process Unspecified. EDMS 09:01 XRAY Chest (1 view) In Process Unspecified. EDMS 09:08 EKG done, by ED staff, reviewed by Kimber ROJO. em1 10:46 MRI - Brain Wo Cont In Process Unspecified. EDMS 11:05 Ermias Palacios MD is Referral Physician. jh7 Administered Medications: No medications were administered Point of Care Testing: Blood Glucose: 09:28 Blood Glucose: 100 mg/dL; rs5 Ranges: Outcome: 11:06 Discharge ordered by . jh7 11:21 Patient left the ED. rs5 NIH Stroke Scale - NIH Stroke Score Date: 06/06/2023 Time: 08:30 Total Score = 0 10. Dysarthria (speech clarity - read or repeat words) - 0(Normal) 11. Extinction and Inattention (visual/tactile/auditory/spatial/personal) - 0(No abnormality) 1a. Level of Consciousness (LOC) - 0(Alert) 1b. Level of Consciousness (LOC) (Month \\T\\ Age) - 0(Both) 1c. LOC Commands (Open \\T\\ Closes Eyes/Extrusion Die Coordinator) - 0(Both) 2. Best Gaze (Lateral Gaze Paresis) - 0(Normal) 3. Visual Field Loss - 0(No visual loss) 4. Facial Palsy - 0(Normal) 5a. Left Arm: Motor (10-second hold) - 0(No drift) 5b. Right Arm: Motor (10-second hold) - 0(No drift) 6a. Left Leg: Motor (5-second hold - always test supine) - 0(No drift) 6b. Right Leg: Motor (5-second hold - always test supine) - 0(No drift) 7. Limb Ataxia (finger/nose \\T\\ heel/irvin - test with eyes open) - 0(Absent) 8. Sensory Loss (pinprick arms/legs/face) - 0(Normal) 9. Best Language: Aphasia (description/naming/reading) - 0(No aphasia) Initials: jh7 Signatures: Dispatcher [employer] EDMS Héctor Elaine em1 Estella Veloz RN RN aa5 Tyler Rodarte RN RN 1 Kimber Perez, DIRECT MARKETING EXECUTIVE DIRECT MARKETING EXECUTIVEChandler Regional Medical Center7 Erlin Salinas RN RN rs5 Korin Barahona mg5 Corrections: (The following items were deleted from the chart) 09:38 09:00 Reassessment: To bedside for visual acuity test. Findings: 20/20 vision aa5 right eye, 20/20 vision left eye, 20/20 vision both eyes. aa5 :40 08:26 Neuro: Level of Consciousness is awake, alert, obeys commands, Oriented aa5 to person, place, time, situation, Outreach Consultant are equal bilaterally Moves all extremities. Full function Gait is steady, Speech is normal, Facial symmetry appears normal, Pupils are PERRLA, Pupil Size: 3 mm Intact Babinski is negative aa5 :49 09:28 Blood Glucose: Blood Glucose Gnpiqkr=162 mg/dL. aa5 rs5 08:26 General: Appears in no apparent distress. comfortable, Behavior is calm, rs5 cooperative, aa5 08:26 Pain: Denies pain. aa5 rs5 08:26 Cardiovascular: Heart tones S1 S2 present Rhythm is regular aa5 rs5 08:26 Respiratory: Airway is patent Respiratory effort is even, unlabored, rs5 Respiratory pattern is regular, symmetrical, Breath sounds are clear bilaterally. aa5 08:26 GI: Abdomen is round non-distended, Bowel sounds present X 4 quads. Abd rs5 is soft and non tender X 4 quads. aa5 08:26 : No signs and/or symptoms were reported regarding the genitourinary rs5 system. aa5 08:26 EENT: No signs and/or symptoms were reported regarding the EENT system. rs5 aa5 50 08:26 Derm: Skin is intact, Skin is pink, warm \\T\\ dry. aa5 rs5 08:26 Musculoskeletal: Range of motion: intact in all extremities, 5 5 08:26 Neuro: Level of Consciousness is awake, alert, obeys commands, Oriented rs5 to person, place, time, situation, Outreach Consultant are equal bilaterally Moves all extremities. Full function Gait is steady, Speech is normal, Facial symmetry appears normal, Pupils are PERRLA, Pupil Size: 3 mm Intact Babinski is negative Pt states "At work this morning, I kept seeing black spots out of my right eye and I temporarily lost my peripheral vision in my right eye." Pt currently denies experiencing visual changes or disturbances. . 5 09:00 Reassessment: To bedside for visual acuity test. Findings: 20/20 vision rs5 right eye, 20/20 vision left eye, 20/20 vision both eyes. 5 09:37 Reassessment: Patient and/or family updated on plan of care and expected rs5 duration. Pain level reassessed. Patient is alert, oriented x 3, equal unlabored respirations, skin warm/dry/pink. aa5 09:37 Neuro: Level of Consciousness is awake, alert, obeys commands, Oriented rs5 to person, place, time, situation, aa5 09:37 EENT: [place] [id number] 09:37 Neuro: Pupils are PERRLA, Pt denies currently expiring visual changes or rs5 disturbances . [facility] 08:26 [facility] ED Fall Risk Assessment (Adult) History of falling in the last 3 rs5 months, including since admission No falls in past 3 months (0 pts) Confusion or Disorientation No (0 pts) Intoxicated or Sedated No (0 pts) Impaired Gait No (0 pts) Mobility Assist Device Used No (0 pt) Altered Elimination No (0 pt) Score/Fall Risk Level 0 - 2 = Low Risk Oriented to surroundings, Maintained a safe environment, [facility] 08:26 Abuse screen: Denies threats or abuse. 5 5 08:26 Nutritional screening: No deficits noted. [place] [id number] 08:26 Tuberculosis screening: No symptoms or risk factors identified. [place] [id number] 08:26 Patient has correct armband on for positive identification. Bed in low rs5 position. Call light in reach. Side rails up X2. aa5
--- NOTE | 2023-06-06 11:07 | EDPHYS ---
Physician Documentation [facility] Name: Honey Archibald Age: 32 yrs Sex: Female : 1990 Arrival Date: 06/06/2023 Time: 08:21 Bed 19 Private MD: ED Physician Tien Mcfarlane HPI: 06/06 08:30 This 32 yrs old Female presents to ER via Ambulatory with complaints of Vision Problem, jh7 Doesnt Feel Well. 08:30 Onset: The symptoms/episode began/occurred at 07:30. Associated signs and symptoms: jh7 Pertinent positives: lightheadedness, Pertinent negatives: abdominal pain, chest pain, fever, headache, shortness of breath, vomiting, wheezing. 32-year-old female reports that at 730 this morning she saw a flashing spot in her right eye. She states that she became dizzy, tried to read something on her phone, and felt she could not comprehend the words. Reports that symptoms have resolved now. History of a NARCOTICS DETECTIVE shunt placement in 2014 due to a large arachnoid cyst on the left side of her brain. Denies taking any medication. Reports that when she saw the flashing light this morning she noticed a loss of peripheral vision. She states now her vision has returned, but feels light headed.. Historical: - Allergies: 08:30 No Known Allergies; ll1 - PMHx: 08:30 arachnoid cyst; ll1 - PSHx: 08:30 brain SX; ll1 - Immunization history:: Adult Immunizations up to date. - Social history:: Smoking status: Patient denies any tobacco usage or history of. ROS: 08:30 Eyes: Negative for injury, pain, redness, and discharge, ENT: Negative for injury, jh7 pain, and discharge, Neck: Negative for injury, pain, and swelling, Cardiovascular: Negative for chest pain, palpitations, and edema, Respiratory: Negative for shortness of breath, cough, wheezing, and pleuritic chest pain, Abdomen/GI: Negative for abdominal pain, nausea, vomiting, diarrhea, and constipation, MS/Extremity: Negative for injury and deformity, Skin: Negative for injury, rash, and discoloration, 08:30 Constitutional: Positive for malaise, Negative for fever, 08:30 Neuro: Positive for visual changes, Lightheadedness, Negative for altered mental status, dizziness, gait disturbance, headache, loss of consciousness, numbness, seizure activity, speech changes, syncope, tingling, 08:30 All other systems are negative, Exam: 08:30 Constitutional: This is a well developed, well nourished patient who is awake, alert, jh7 and in no acute distress. Head/Face: Normocephalic, atraumatic. Eyes: Pupils equal round and reactive to light, extra-ocular motions intact. Lids and lashes normal. Conjunctiva and sclera are non-icteric and not injected. Cornea within normal limits. Periorbital areas with no swelling, redness, or edema. ENT: Nares patent. No nasal discharge, no septal abnormalities noted. Tympanic membranes are normal and external auditory canals are clear. Oropharynx with no redness, swelling, or masses, exudates, or evidence of obstruction, uvula midline. Mucous membranes moist. Neck: Trachea midline, no thyromegaly or masses palpated, and no cervical lymphadenopathy. Supple, full range of motion without nuchal rigidity, or vertebral point tenderness. No Meningismus. Cardiovascular: Regular rate and rhythm with a normal S1 and S2. No gallops, murmurs, or rubs. Normal PMI, no JVD. No pulse deficits. Respiratory: Lungs have equal breath sounds bilaterally, clear to auscultation and percussion. No rales, rhonchi or wheezes noted. No increased work of breathing, no retractions or nasal flaring. Abdomen/GI: Soft, non-tender, with normal bowel sounds. No distension or tympany. No guarding or rebound. No evidence of tenderness throughout. Skin: Warm, dry with normal turgor. Normal color with no rashes, no lesions, and no evidence of cellulitis. MS/ Extremity: Pulses equal, no cyanosis. Neurovascular intact. Full, normal range of motion. 08:30 Neuro: Orientation: is normal, to person, place, time \T\ situation. Mentation: is normal, Memory: is normal, Cranial nerves: grossly normal, Cerebellar function: is grossly normal, Motor: is normal, Sensation: is normal, Vital Signs: 08:31 BP 133 / 96; Pulse 77; Resp 16; Temp 98.1; Pulse Ox 98% ; Weight 60.33 kg; Height 5 ft. ll1 5 in. ; Pain 4/10; 08:31 Body Mass Index 22.13 (60.33 kg, 165.1 cm) ll1 08:31 Pain Scale: Adult ll1 NIH Stroke Scale Scores: 08:30 NIHSS Score: 0 jh7 [place] Coma Score: 08:30 Eye Response: spontaneous(4). Motor Response: obeys commands(6). Verbal Response: jh7 oriented(5). Total: 15. MDM: 08:26 Patient medically screened. [facility] 11:05 Differential diagnosis: Acute CVA, TIA, shunt malfunction, hydrocephalus, vertigo, jh7 electrolyte abnormality. Data reviewed: vital signs, nurses notes, lab test result(s), EKG, radiologic studies, CT scan, MRI. Historians other than the Patient: Spouse/Significant Other: . Counseling: I had a detailed discussion with the patient and/or guardian regarding the historical points, exam findings, and any diagnostic results supporting the discharge/admit diagnosis, the need for outpatient follow up, a neurologist, to return to the emergency department if symptoms worsen or persist or if there are any questions or concerns that arise at home. ED course: Visual changes resolved upon arrival to the ER. Patient only complained of mild lightheadedness throughout the ER visit. Reviewed all labs and imaging with the patient and her . Advised her to return to the ER if symptoms returned or any new concerning symptoms develop. Recommended follow-up with neurologist.. 06/06 08:37 Order name: Basic Metabolic Panel; Complete Time: 09:23 [facility] 06/06 08:37 Order name: CBC with Diff; Complete Time: 09:09 [facility] 06/06 08:37 Order name: High Sensitivity Troponin; Complete Time: 09:23 [facility] 06/06 08:37 Order name: Protime (+inr); Complete Time: 09:09 [facility] 06/06 08:37 Order name: Ptt, Activated; Complete Time: 09:09 [facility] 06/06 09:37 Order name: Glucose, Ancillary Testing; Complete Time: 09:38 [facility] 06/06 08:37 Order name: XRAY Chest (1 view); Complete Time: 09:09 [facility] 06/06 08:37 Order name: CT Head Brain wo Cont; Complete Time: 09:09 [facility] 06/06 09:20 Order name: MRI - Brain Wo Cont; Complete Time: 11:01 [facility] 06/06 08:37 Order name: EKG; Complete Time: 08:37 [facility] 06/06 08:37 Order name: Accucheck; Complete Time: 09:28 [facility] 06/06 08:37 Order name: Cardiac monitoring; Complete Time: 08:56 [facility] 06/06 08:37 Order name: EKG - Nurse/Tech; Complete Time: 09:08 [facility] 06/06 08:37 Order name: IV Saline Lock; Complete Time: 08:56 [facility] 06/06 08:37 Order name: Labs collected and sent; Complete Time: 08:56 [facility] 06/06 08:37 Order name: NPO; Complete Time: 08:56 [facility] 06/06 08:37 Order name: O2 Per Protocol; Complete Time: 08:56 [facility] 06/06 08:37 Order name: O2 Sat Monitoring; Complete Time: 08:56 [facility] 06/06 08:37 Order name: Stroke Swallow Screen; Complete Time: 09:14 [facility] 06/06 08:54 Order name: Visual Acuity; Complete Time: 09:28 [facility] EC:06 Rate is 73 beats/min. Rhythm is regular. QRS Tolstoy is Normal. RI interval is normal at [facility] 73 msec. QRS interval is normal at 88 msec. QT interval is normal at 410 msec. No Q waves. T waves are Normal. No ST changes noted. Clinical impression: Normal ECG. Administered Medications: No medications were administered Point of Care Testing: Blood Glucose: 09:28 Blood Glucose: 100 mg/dL; rs5 Ranges: Critical Glucose Levels:Adult <50 mg/dl or >400 mg/dl <40 mg/dl or >180 mg/dl Disposition: 17:21 Co-signature as Attending Physician, Tien Mcfarlane MD I reviewed the patient's care rn provided by the Advanced Practice Provider and agree with the diagnosis and treatment plan. Disposition Summary: 06/06/23 11:06 Discharge Ordered Notes: Location: Home [facility] Problem: new [facility] Condition: Stable [facility] Diagnosis - Dizziness and giddiness [facility] - Visual Changes-Resolved [facility] Followup: [facility] - With: Private Physician - When: 2 - 3 days - Reason: Recheck today's complaints Followup: [facility] - With: Ermias Palacios MD - When: 2 - 3 days - Reason: Recheck today's complaints Discharge Instructions: - Discharge Summary Sheet 7 - Blurred Vision, Adult 7 - Dizziness [facility] - Visual Disturbances [facility] Forms: - Medication Reconciliation Form [facility] - Thank You Letter [facility] - Patient Portal Instructions [facility] - Leadership Thank You Letter [facility] NIH Stroke Scale - NIH Stroke Score Date: 06/06/2023 Time: 08:30 Total Score = 0 10. Dysarthria (speech clarity - read or repeat words) - 0(Normal) 11. Extinction and Inattention (visual/tactile/auditory/spatial/personal) - 0(No abnormality) 1a. Level of Consciousness (LOC) - 0(Alert) 1b. Level of Consciousness (LOC) (Month \T\ Age) - 0(Both) 1c. LOC Commands (Open \T\ Closes Eyes/Instrument Technician Apprentice) - 0(Both) 2. Best Gaze (Lateral Gaze Paresis) - 0(Normal) 3. Visual Field Loss - 0(No visual loss) 4. Facial Palsy - 0(Normal) 5a. Left Arm: Motor (10-second hold) - 0(No drift) 5b. Right Arm: Motor (10-second hold) - 0(No drift) 6a. Left Leg: Motor (5-second hold - always test supine) - 0(No drift) 6b. Right Leg: Motor (5-second hold - always test supine) - 0(No drift) 7. Limb Ataxia (finger/nose \T\ heel/irvin - test with eyes open) - 0(Absent) 8. Sensory Loss (pinprick arms/legs/face) - 0(Normal) 9. Best Language: Aphasia (description/naming/reading) - 0(No aphasia) Initials: [facility] Signatures: Dispatcher [employer] Tien Hinkle MD MD rn Lewis, Lynsay, RN RN ll1 Kimber Perez, [employer] WEBSPHERE PORTAL DEVELOPER [employer] WEB[employer]ERE PORTAL DEVELOPER [facility]
[2023-06-06 11:38] VITALS: BP 133/96; TEMP 98.1; O2SAT 98
--- NOTE | 2023-06-11 14:33 | EKG ---
Test Date: 2023-06-06 Test Time: 10:06:18 Gambling Floor Supervisor: KENIA MEASUREMENT RESULTS: Intervals: Rate: 73 MT: 130 QRSD: 88 QT: 410 QTc: 451 Woodruff: P: 73 MT: 130 QRS: 84 T: 43 INTERPRETIVE STATEMENTS: Normal sinus rhythm Normal ECG No previous ECG available for comparison Electronically Signed On 06-11-23 14:18:00 HOOKING MACHINE OPERATOR by Howard Gomez
== END 2023-06-06 11:21 | disposition home or self-care (01) ==
LOC: ER 08:21
DX: R42 Dizziness and giddiness (principal); Z98.2 Presence of cerebrospinal fluid drainage device
CPT/HCPCS: 36415; 70450; 70551; 71045; 80048; 82947; 84484; 85025; 85610; 85730; 93005; 99283